=== PATIENT | male | born 1960 | race Caucasian/White ===

== ENCOUNTER 2016-10-23 09:55 | Inpatient (IN) | payer OTHER ==
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
[2016-10-23 10:19] VITALS: BMI 26.6
[2016-10-23 10:39] LABS: BASOPHIL 0.4 % (0-2.0); EOSINOPHIL 1.3 % (0-4.5); MCH 33.6 pg (25.7-33.7); MCHC 34.4 g/dl (32.0-35.9); MEAN CELL VOLUME 97.7 fl (80-96); MEAN PLT VOLUME 10.9 fl (7.5-11.1); NEUTROPHILS 79.8 % (42.8-82.8); PLATELET COUNT 40 K/MM3 (134-434); RDW 18.4 % (11.9-15.9); WHITE BLOOD COUNT 7.3 K/mm3 (4.0-10.0)
[2016-10-23 10:42] LABS: URINE APPEARANCE SLCLOUDY; URINE BILIRUBIN NEGATIVE (NEGATIVE); URINE COLOR YELLOW; URINE GLUCOSE (UA) NEGATIVE (NEGATIVE); URINE KETONE NEGATIVE (NEGATIVE); URINE NITRITE NEGATIVE (NEGATIVE); URINE UROBILINOGEN NEGATIVE E.U./dl (0.2-1.0)
[2016-10-23 10:56] LABS: ACTIVATED PTT 23.7 SECONDS (26.9-34.4)
[2016-10-23 11:02] LABS: URINE BLOOD 3+ (NEGATIVE); URINE LEUK ESTERASE 3+ (NEGATIVE); URINE PROTEIN 1+ (NEGATIVE)
[2016-10-23 11:09] LABS: ALBUMIN 2.8 g/dl (3.4-5.0); CALCIUM 8.4 mg/dL (8.5-10.1); CREATININE 1.7 mg/dL (0.7-1.3); TROPONIN I 0.07 ng/ml (0.00-0.05)
[2016-10-23 11:11] LABS: BILIRUBIN,TOTAL 2.4 mg/dL (0.2-1.0); TOT PROT 9.1 g/dl (6.4-8.2)
[2016-10-23 11:19] LABS: URINE RBC 3 /hpf (0-3); URINE WBC 57 /hpf (3-5); YEAST FEW
[2016-10-23 11:57] LABS: PROTHROMBIN TIME (PATIENT) > 320.00 SEC (9.98-11.88)
[2016-10-23 11:58] LABS: INR > 15.00 (0.82-1.09)
[2016-10-23] MEDS ORDERED: LACTULOSE 20 GM/30 ML UDC (FOR RECTAL USE ONLY) PR ONE ×2 (13:10→15:46)
[2016-10-23] MEDS ORDERED: VANCOMYCIN 1,000 MG in DEXTROSE 5%-WATER - 250 ML IVPB ONE (13:53)
[2016-10-23] MEDS ORDERED: PIPERACILLIN/TAZOB 3.375 GM/50 ML PRE-DOCKED IV ONE (13:53)
[2016-10-23] MEDS ORDERED: SODIUM CHLORIDE 1,000 ML IV STA (14:48)
[2016-10-23] MEDS ORDERED: VANCOMYCIN 1 GRAM (PRE-DOCKED) 250 ML IVPB ONE (15:57)
[2016-10-23] MEDS ORDERED: PIPERACILLIN/TAZOB 3.375 GM 50 ML IVPB ONE ×2 (15:57→18:57)
[2016-10-23] MEDS ORDERED: ALBUTEROL SO4 2.5/IPRATROPIUM 0.5 INH SOL 3 ML VIAL.NEB. NEB PRN (16:03)
--- NOTE | 2016-10-23 16:34 | EKG ---
Test Reason : Blood Pressure : / mmHG Vent. Rate : 060 BPM Atrial Rate : 064 BPM P-R Int : 000 ms QRS Dur : 184 ms QT Int : 562 ms P-R-T Axes : 000 -53 124 degrees QTc Int : 562 ms AV SEQUENTIAL OR DUAL CHAMBER ELECTRONIC PACEMAKER Confirmed by MD JUDY, REID ([id number]) on 10/23/2016 4:33:56 PM Referred By: Overread By: REID KIM MD
--- NOTE | 2016-10-23 16:59 | PN ---
Progress Note (short form) - Note Progress Note: ID consult dictated imp/reccd 56 year old man with hep c cirrhosis found at home with decreased mental status brought in for possible cva head ct negative ammonia elevated pyuria noted right pleural effusion noted (chronic) given vanco/zosyn after cultures- asked to evaluate he awakens to name but is unable to participate in conversation NAD just got rectal lactulose no fevers suggest continue zosyn, f/u cultures
[2016-10-23] MEDS ORDERED: PANTOPRAZOLE SODIUM 100 ML IVPB ONE (17:43)
[2016-10-23] MEDS ORDERED: FUROSEMIDE 40 MG TABLET (FP) ONE (17:43)
--- NOTE | 2016-10-23 18:00 | CONS ---
DATE OF CONSULTATION: DATE OF DICTATION: 10/23/2016 INFECTIOUS DISEASE CONSULTATION HISTORY OF PRESENT ILLNESS: This is a 56-year-old man with a history of hepatitis C on methadone, history of lymphoma. He has permanent pacemaker and a chronic right pleural effusion, presents to the emergency room with decreased mental status. He was found by his home health aid sitting on the couch and was responsive to verbal stimuli, but there was a concern he had a stroke. They thought he had right sided weakness. He was brought to the ER. He had his glucose checked, which was normal. He had recently been seen on the in the emergency room following a fall. In the ER, he was found to have an elevated ammonia level, pyuria, and a Rebolledo was placed, and a chronic right pleural effusion. He was given vancomycin and Zosyn. I am asked to see him for further recommendations. He had a head CT as well in the emergency room that was negative for any acute intracranial process. He is currently awake. He just received some rectal lactulose. He knows his name, but he is not able to participate in the conversation. He is in no acute distress. PAST MEDICAL HISTORY: Notable for history of anemia, lymphoma. He has had an SC and has a permanent pacemaker. He has a history of diabetes, lower GI bleed. He has had hypertension, liver cirrhosis, hepatitis C, anxiety, former substance use. He is on methadone. He has had [address] He has a permanent pacemaker. He has had GI polyps removed, and he has had a fracture of his hip in the past which has been pinned, which is his left hip, after a fall. He has had recurrent pleural effusions in his right lung. FAMILY HISTORY: Diabetes and heart disease. SOCIAL HISTORY: Is not obtainable at this time. REVIEW OF SYSTEMS: Not obtainable, but he looks quite comfortable. MEDICATION: His medication list was not obtainable in the ER. PHYSICAL EXAMINATION: General: He is resting comfortably, is in no acute distress. He is afebrile. Vital signs: Temperature 98.3 pulse 61, blood pressure 138/62, respiratory rate 18, saturating 98% on room air. HEENT: He is mildly icteric. He opens his eyes. He is normocephalic. Neck: Supple. He has no meningeal signs. He has no thrush. Lungs: Diminished breath sounds at the right base. Heart: Regular rate and rhythm. Abdomen: Soft, nontender. He has no fluid wave. Extremities: Venous stasis changes bilaterally and petechiae below his ankles, which appear chronic. He has no open skin wounds. LABORATORY: His white count is 7.3, hemoglobin 12.3, platelets of 40,000. BUN and creatinine are 57 and 1.7 with a glucose of 304. A total bilirubin of 2.4. AST is 54, alkaline phosphatase of 281. Ammonia is 118. Urinalysis is 3+ leukocyte esterase with 57 white cells. Chest x-ray reveals a chronic right pleural effusion. MEDICATION: His medications at the time of his last discharge in August include nebulizer, furosemide, lactulose, methadone, Protonix, insulin. IMPRESSION: In summary, this is a 56-year-old man brought in with confusion. He has decreased mental status. He has a hepatic encephalopathy with elevated ammonia level, evidence of a urinary tract infection. No evidence of spontaneous bacterial peritonitis and a chronic right pleural effusion without any respiratory symptoms. He was given vancomycin and Zosyn after cultures. I would suggest we continue his Zosyn and follow up his cultures in the morning. ROSITA MERCHANT M.D. [id number]
[2016-10-23] MEDS: FUROSEMIDE 40 MG TABLET (FP) PO SCH (18:02)
[2016-10-23] MEDS: PANTOPRAZOLE SODIUM 100 ML IVPB SCH (18:18)
[2016-10-23] MEDS ORDERED: INSULIN (NOVOLOG) ASPART 100 UNITS/ML 10ML VIAL ONE (18:56)
[2016-10-23] MEDS: INSULIN SLIDING SCALE (NOVOLOG) 1 VIAL SQ SCH ×2 (18:59→22:30)
[2016-10-23 19:00] LABS: INR 1.53 (0.82-1.09)
[2016-10-23] MEDS: PIPERACILLIN/TAZOB 3.375 GM/50 ML PRE-DOCKED IVPB SCH (19:00)
[2016-10-23] MEDS: RIFAXIMIN 550 MG TABLET (UD) PO SCH (22:28)
[2016-10-23] MEDS: LACTULOSE 20 GM/30 ML UDC (FOR ORAL USE ONLY) PO PRN (22:28)
[2016-10-23] MEDS: INSULIN DETEMIR 100 UNITS/ML MDV SQ SCH (22:33)
[2016-10-24] MEDS: PIPERACILLIN/TAZOB 3.375 GM/50 ML PRE-DOCKED IVPB SCH ×2 (03:36→11:16)
[2016-10-24] MEDS ORDERED: METHADONE HCL 10 MG TABLET PO SCH (06:00)
[2016-10-24] MEDS: INSULIN SLIDING SCALE (NOVOLOG) 1 VIAL SQ SCH ×4 (06:45→21:47)
[2016-10-24 08:03] LABS: MCHC 34.2 g/dl (32.0-35.9); MEAN CELL VOLUME 99.4 fl (80-96); MEAN PLT VOLUME 10.9 fl (7.5-11.1); RDW 17.9 % (11.9-15.9); WHITE BLOOD COUNT 5.8 K/mm3 (4.0-10.0)
[2016-10-24 08:25] LABS: ALBUMIN 2.4 g/dl (3.4-5.0); CALCIUM 8.6 mg/dL (8.5-10.1); CREATININE 1.6 mg/dL (0.7-1.3)
[2016-10-24 08:27] LABS: BILIRUBIN,TOTAL 2.5 mg/dL (0.2-1.0); TOT PROT 8.1 g/dl (6.4-8.2)
[2016-10-24 08:57] LABS: PLATELET COUNT 36 K/MM3 (134-434)
--- NOTE | 2016-10-24 10:29 | HP ---
Admitting History and Physical - Admission History of Present Illness: 56-year-old male with history of hepatitis C, diabetes, IVDA on methadone, pacemaker, lymphoma who presents to the emergency department by EMS with altered mental status. Per EMS, the home health aide found the patient sitting on the couch not moving his right side and responsive only to verbal stimuli. Fingerstick in the field was normal. The history is limited secondary to the clinical presentation of the patient. Of note, the patient was seen on September 28 in the emergency department at [facility] following a fall. 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 No: Alzheimer's , Dementia Cardiovascular: Yes: CAD (reported prior MIs -> stents x4 at [facility] in 1998), HTN, Other (PPM palcement at time of SC in 1998, abnl EKG witth old inferior SC). No : AFIB Pulmonary: Yes: COPD, Other (PLEURAL EFFUSION WITH PREVIOUS TAPS). No: O2 Dependent Gastrointestinal: Yes: Ascites, Diverticulitis, Esophageal Varices (This patient does NOT have varices), GI Bleed (s/p multiple blood transfusions), Other (gastri varices / ) Hepatobiliary: Yes: Cirrhosis (ESLD), Hepatitis C, Other (PORTAL HYPERTENSION) Renal/: Yes: Renal Inusuff (CKD (baseline 0.9-1.1)) Heme/Onc: Yes: Anemia, Thrombocytopenia Psych: Yes: Addictions (hx of polysubstance abuse & IVDA on maintenance Methadone), Anxiety Endocrine: Yes: Diabetes Mellitus (insulin-dependent) - Past Surgical History Past Surgical History: Yes: Permanent Pacemaker, Stent (x4), Upper Endoscopy ( with gastric varices/sclerotherapy) - Smoking History Smoking history: Former smoker Have you smoked in the past 12 months: No Aproximately how many cigarettes per day: 5 - Alcohol/Substance Use Hx Alcohol Use: Yes History of Substance Use: reports: Heroin (on methadone) - Social History ADL: Independent Occupation: not employed History of Recent Travel: No Home Medications - Allergies Allergies/Adverse Reactions: Allergies Allergy/AdvReac Type Severity Reaction Status Date / Time nalbuphine HCl [From Nubain] Allergy Verified 10/23/16 10:12 octreotide AdvReac Verified 10/23/16 10:12 - Home Medications Home Medications: Ambulatory Orders Unobtainable [Unobtainable] 09/28/16 Family Disease History - Family Disease History Family Disease History: Heart Disease: Father (OPEN HEART SX,), CA: Mother (BREAST CANCER,) Review of Systems - Review of Systems Cardiovascular: denies: Chest Pain Respiratory: denies: SOB, SOB on Exertion Gastrointestinal: denies: Abdominal Pain Genitourinary: reports: No Symptoms Neurological: reports: Incoordination, Unsteady Gait, Weakness Physical Examination Vital Signs: Vital Signs Temperature 97.8 F 10/24/16 06:18 Pulse Rate 67 10/24/16 06:18 Respiratory Rate 20 10/24/16 06:18 Blood Pressure 100/55 10/24/16 06:18 O2 Sat by Pulse Oximetry (%) 96 10/23/16 20:00 Neck: Yes: Supple Cardiovascular: Yes: Regular Rate and Rhythm Respiratory: Yes: Regular, CTA Bilaterally, Diminished (rt) Gastrointestinal: Yes: Normal Bowel Sounds, Soft, Distention. No: Tenderness Musculoskeletal: Yes: Muscle Weakness Edema: No Wound/Incision: Yes: Other (bruising large area LUE) Neurological: Yes: Alert, Oriented, Unsteady Gait, Weakness Labs: CBC, BMP 10/24/16 06:00 10/24/16 06:00 Imaging - Results Chest X-ray: Report Reviewed X-ray: Report Reviewed Cat Scan: Report Reviewed Problem List - Problems (1) Cirrhosis of liver Assessment/Plan: GI ON CASE CONTINUE WITH Orders 10/23/16 13:10 Lactulose (Rectal Use) [Cephulac (Rectal Use)] 200 gm RI ONCE ONE 10/23/16 16:35 Lactulose (Oral Use) [Cephulac (Oral Use)] 20 gm PO QID PRN 10/23/16 22:00 Rifaximin [Xifaxan -] 550 mg PO BID 10/24/16 10:00 Spironolactone [Aldactone -] 100 mg PO DAILY Code(s): K74.60 - UNSPECIFIED CIRRHOSIS OF LIVER Qualifiers: (2) Hepatic encephalopathy Assessment/Plan: ABOVE Code(s): K72.90 - HEPATIC FAILURE, UNSPECIFIED WITHOUT COMA (3) Hydrothorax Assessment/Plan: NO CHANGE FROM PREVIOUS Code(s): J94.8 - OTHER SPECIFIED PLEURAL CONDITIONS (4) Diabetes mellitus, insulin dependent (IDDM), uncontrolled Assessment/Plan: BG WITH COVERAGE Code(s): E10.65 - TYPE 1 DIABETES MELLITUS WITH HYPERGLYCEMIA Qualifiers: Chronic kidney disease stage: stage 3 (moderate) (5) Lymphoma Code(s): C85.90 - NON-HODGKIN LYMPHOMA, UNSPECIFIED, UNSPECIFIED SITE (7) Thrombocytopenia Code(s): D69.6 - THROMBOCYTOPENIA, UNSPECIFIED
--- NOTE | 2016-10-24 10:38 | CONSULT ---
Consult Consult Specialty:: Nephrology Reason for Consultation:: tsarr - History of Present Illness Chief Complaint: confusion History of Present Illness: This is a 56 year old man with a history of cirrhosis of liver, htn, diabetes who presented with altered mental status. He was found to have hepatic encephalopathy presumably from an infection. He states "my liver gave out". His main complaint now is that he has a sandra and he wants it removed. Has no other complaints. Had a normal CT of head. 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 No: Alzheimer's , Dementia Cardio/Vascular: Yes: CAD (reported prior MIs -> stents x4 at [facility] in 1998), HTN , NV, Other (PPM palcement at time of NV in 1998, abnl EKG witth old inferior NV ). No: AFIB Pulmonary: Yes: COPD, Other (PLEURAL EFFUSION WITH PREVIOUS TAPS). No: O2 Dependent Gastrointestinal: Yes: Ascites, Diverticulitis, Esophageal Varices (This patient does NOT have varices), GI Bleed (s/p multiple blood transfusions), Other (gastri varices / ) Hepatobiliary: Yes: Cirrhosis (ESLD), Hepatitis C, Other (PORTAL HYPERTENSION) Renal/: Yes: Renal Inusuff (CKD (baseline 0.9-1.1)) Psych: Yes: Addictions (hx of polysubstance abuse & IVDA on maintenance Methadone), Anxiety Endocrine: Yes: Diabetes Mellitus (insulin-dependent) - Past Surgical History Past Surgical History: Yes: Permanent Pacemaker, Stent (x4), Upper Endoscopy ( with gastric varices/sclerotherapy) - Alcohol/Substance Use Hx Alcohol Use: Yes History of Substance Use: reports: Heroin (on methadone) - Smoking History Smoking history: Former smoker Have you smoked in the past 12 months: No Aproximately how many cigarettes per day: 5 - Social History Usual Living Arrangement: Other ( from . The youngest of his 3 children lives with him) ADL: Independent Occupation: not employed History of Recent Travel: No Home Medications - Allergies Allergies/Adverse Reactions: Allergies Allergy/AdvReac Type Severity Reaction Status Date / Time nalbuphine HCl [From Nubain] Allergy Verified 10/23/16 10:12 octreotide AdvReac Verified 10/23/16 10:12 - Home Medications Home Medications: Ambulatory Orders Unobtainable [Unobtainable] 09/28/16 Family Disease History - Family Disease History Family Disease History: Heart Disease: Father (OPEN HEART SX,), CA: Mother (BREAST CANCER,) Review of Systems - Review of Systems Constitutional: reports: Weakness Eyes: reports: No Symptoms HENT: reports: No Symptoms Neck: reports: No Symptoms Cardiovascular: reports: No Symptoms Respiratory: reports: No Symptoms Gastrointestinal: reports: No Symptoms Genitourinary: reports: Burning Breasts: reports: No Symptoms Reported Musculoskeletal: reports: No Symptoms Integumentary: reports: No Symptoms Neurological: reports: Change in LOC Endocrine: reports: No Symptoms Hematology/Lymphatic: reports: No Symptoms Nephrology Consult - Height Height: 5 ft 9 in - Weight Weight: 180 lb - BMI Body Mass Index (BMI): 26.6 - Lab Results CBC,BMP: CBC, BMP 10/24/16 06:00 10/24/16 06:00 Anion Gap: Anion Gap Anion Gap 9 (8-16) 10/24/16 06:00 - Imaging Chest X-ray: Report Reviewed (ppm, mod pleural eff on R) - Physical Examination Vital Signs: Vital Signs Temperature 97.8 F 10/24/16 06:18 Pulse Rate 67 10/24/16 06:18 Respiratory Rate 20 10/24/16 06:18 Blood Pressure 100/55 10/24/16 06:18 O2 Sat by Pulse Oximetry (%) 96 10/23/16 20:00 Constitutional: Yes: Calm, Thin Eyes: Yes: WNL HENT: Yes: WNL Neck: Yes: WNL Cardiovascular: Yes: Regular Rate and Rhythm, Other (palpable pacemaker) Respiratory: Yes: Regular, Diminished Gastrointestinal: Yes: Normal Bowel Sounds, Hernia (demetrius umbilical) Renal/: Yes: Sandra Present Musculoskeletal: Yes: WNL Extremities: Yes: WNL Edema: No Integumentary: Yes: Petechiae, Venous Stasis Changes Wound/Incision: Yes: Clean/Dry Neurological: Yes: Alert, Oriented Psychiatric: Yes: Alert, Oriented Assessment/Plan IMPRESSION Pt has chronic kidney disease and may have had mild starr- he is well has thrombocytopenia likely from liver disease hepatic encephalopathy worsened by uti acute uti PLAN can dc sandra and observe response avoid nephrotoxins would monitor ammonia though it may not directly reflect degree of encephalopathy lactulose and rifaximin will order renal sono will follow, thank you MV
[2016-10-24] MEDS: PANTOPRAZOLE SODIUM 100 ML IVPB SCH (11:16)
[2016-10-24] MEDS: LACTULOSE 20 GM/30 ML UDC (FOR ORAL USE ONLY) PO PRN ×3 (11:17→21:49)
[2016-10-24] MEDS: ACETAMINOPHEN 325 MG TABLET (FP) PO PRN ×2 (11:24→21:48)
[2016-10-24] MEDS: SPIRONOLACTONE 25 MG TABLET (FP) PO SCH (11:25)
[2016-10-24] MEDS: RIFAXIMIN 550 MG TABLET (UD) PO SCH ×2 (11:25→21:48)
[2016-10-24] MEDS: FUROSEMIDE 40 MG TABLET (FP) PO SCH (11:25)
--- NOTE | 2016-10-24 12:23 | CONSULT ---
Consult Consult Specialty:: GI Referred by:: Dr Thompson Reason for Consultation:: hepatic encephalopathy - History of Present Illness Chief Complaint: AMS History of Present Illness: 56 M well-known to our service with h/o ESLD and low-grade B-cell lymphoma, again admitted for encephalopathy. NH4 on admission 119 now 94, with concomitant improvement. Currently awake and just finished a large lunch. Started on po lactulose and rifaximin yesterday with good response. 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 No: Alzheimer's , Dementia Cardio/Vascular: Yes: CAD (reported prior MIs -> stents x4 at [facility] in 1998), HTN , MD, Other (PPM palcement at time of MD in 1998, abnl EKG witth old inferior MD ). No: AFIB Pulmonary: Yes: COPD, Other (PLEURAL EFFUSION WITH PREVIOUS TAPS). No: O2 Dependent Gastrointestinal: Yes: Ascites, Diverticulitis, Esophageal Varices (This patient does NOT have varices), GI Bleed (s/p multiple blood transfusions), Other (gastri varices / ) Hepatobiliary: Yes: Cirrhosis (ESLD), Hepatitis C, Other (PORTAL HYPERTENSION) Renal/: Yes: Renal Inusuff (CKD (baseline 0.9-1.1)) Heme/Onc: Yes: Cancer (low-grade B-cell lymphoma) Psych: Yes: Addictions (hx of polysubstance abuse & IVDA on maintenance Methadone), Anxiety Endocrine: Yes: Diabetes Mellitus (insulin-dependent) - Past Surgical History Past Surgical History: Yes: Permanent Pacemaker, Stent (x4), Upper Endoscopy ( with gastric varices/sclerotherapy) - Alcohol/Substance Use Hx Alcohol Use: Yes History of Substance Use: reports: Heroin (on methadone) - Smoking History Smoking history: Former smoker Have you smoked in the past 12 months: No Aproximately how many cigarettes per day: 5 - Social History Usual Living Arrangement: Other ( from . The youngest of his 3 children lives with him) ADL: Independent Occupation: not employed History of Recent Travel: No Home Medications - Allergies Allergies/Adverse Reactions: Allergies Allergy/AdvReac Type Severity Reaction Status Date / Time nalbuphine HCl [From Nubain] Allergy Verified 10/23/16 10:12 octreotide AdvReac Verified 10/23/16 10:12 - Home Medications Home Medications: Ambulatory Orders Unobtainable [Unobtainable] 09/28/16 Family Disease History - Family Disease History Family Disease History: Heart Disease: Father (OPEN HEART SX,), CA: Mother (BREAST CANCER,) Physical Exam-GI Vital Signs: Vital Signs Temperature 98.2 F 10/24/16 09:00 Pulse Rate 64 10/24/16 09:00 Respiratory Rate 14 10/24/16 09:00 Blood Pressure 118/70 10/24/16 09:00 O2 Sat by Pulse Oximetry (%) 96 10/23/16 20:00 Constitutional: Yes: Well Nourished HENT: Yes: Normocephalic Neck: Yes: Supple Cardiovascular: Yes: Regular Rate and Rhythm Respiratory: Yes: CTA Bilaterally Gastrointestinal Inspection: Yes: Ascites ...Auscultate: Yes: Normoactive Bowel Sounds ...Palpate: Yes: Soft. No: Tenderness Neurological: Yes: Confusion (but knows where he is and who I am) Labs: CBC, BMP 10/24/16 06:00 10/24/16 06:00 INR, PTT INR 1.53 (0.82-1.09) H D 10/23/16 18:36 Abnormal Lab Results 10/23/16 10/24/16 10/24/16 18:36 06:00 06:00 RBC 3.49 L Hct 34.7 L MCV 99.4 H RDW 17.9 H Plt Count 36 L* INR 1.53 H D Chloride 112 H BUN 50 H Creatinine 1.6 H Random Glucose 201 H D Total Bilirubin 2.5 H AST 42 H D Alkaline Phosphatase 240 H Ammonia Albumin 2.4 L 10/24/16 06:00 RBC Hct MCV RDW Plt Count INR Chloride BUN Creatinine Random Glucose Total Bilirubin AST Alkaline Phosphatase Ammonia 94.69 H Albumin Hepatic Panel Total Bilirubin 2.5 mg/dL (0.2-1.0) H 10/24/16 06:00 AST 42 U/L (15-37) H D 10/24/16 06:00 ALT 31 U/L (12-78) 10/24/16 06:00 Alkaline Phosphatase 240 U/L (45-117) H 10/24/16 06:00 Albumin 2.4 g/dl (3.4-5.0) L 10/24/16 06:00 Imaging - Results Cat Scan: Report Reviewed ((brain)-no acute problem) Assessment/Plan Patient with ESLD, frequently admitted with HE likely due to non-compliance with meds. Recommend improved home care services. Continue present regimen for now. Check AFP. Follow NH4 levels. Thrombocytopenia unchanged, secondary to hypersplenism. To follow-up at [facility] after discharge
--- NOTE | 2016-10-24 13:09 | CONSULT ---
Consult Consult Specialty:: PULMONARY Referred by:: AMARJIT Reason for Consultation:: RIGHT PLEURAL EFFUSION - History of Present Illness Chief Complaint: R PL EFFUSION History of Present Illness: 56-year-old male with history of hepatitis C, diabetes, IVDA on methadone, pacemaker, lymphoma who presents to the emergency department by EMS with altered mental status. Per EMS, the home health aide found the patient sitting on the couch not moving his right side and responsive only to verbal stimuli. Fingerstick in the field was normal. The history is limited secondary to the clinical presentation of the patient. Of note, the patient was seen on September 28 in the emergency department at [facility] following a fall. Had a right vat in past for chronic right hepatic hydrothorax. 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 No: Alzheimer's , Dementia Cardio/Vascular: Yes: CAD (reported prior MIs -> stents x4 at [facility] in 1998), HTN , ND, Other (PPM palcement at time of [place] in 1998, abnl EKG witth old inferior ND ). No: AFIB Pulmonary: Yes: COPD, Other (PLEURAL EFFUSION WITH PREVIOUS TAPS). No: O2 Dependent Gastrointestinal: Yes: Ascites, Diverticulitis, Esophageal Varices (This patient does NOT have varices), GI Bleed (s/p multiple blood transfusions), Other (gastri varices / ) Hepatobiliary: Yes: Cirrhosis (ESLD), Hepatitis C, Other (PORTAL HYPERTENSION) Renal/: Yes: Renal Inusuff (CKD (baseline 0.9-1.1)) Psych: Yes: Addictions (hx of polysubstance abuse & IVDA on maintenance Methadone), Anxiety Endocrine: Yes: Diabetes Mellitus (insulin-dependent) - Past Surgical History Past Surgical History: Yes: Permanent Pacemaker, Stent (x4), Upper Endoscopy ( with gastric varices/sclerotherapy) - Alcohol/Substance Use Hx Alcohol Use: Yes History of Substance Use: reports: Heroin (on methadone) - Smoking History Smoking history: Former smoker Have you smoked in the past 12 months: No Aproximately how many cigarettes per day: 5 - Social History Usual Living Arrangement: Other ( from . The youngest of his 3 children lives with him) ADL: Independent Occupation: not employed History of Recent Travel: No Home Medications - Allergies Allergies/Adverse Reactions: Allergies Allergy/AdvReac Type Severity Reaction Status Date / Time nalbuphine HCl [From Nubain] Allergy Verified 10/23/16 10:12 octreotide AdvReac Verified 10/23/16 10:12 - Home Medications Home Medications: Ambulatory Orders Unobtainable [Unobtainable] 09/28/16 Family Disease History - Family Disease History Family Disease History: Heart Disease: Father (OPEN HEART SX,), CA: Mother (BREAST CANCER,) Review of Systems - Review of Systems Respiratory: denies: Cough, Hemoptysis, SOB, SOB on Exertion, Wheezing Physical Exam Vital Sings: Vital Signs Temperature 98.2 F 10/24/16 09:00 Pulse Rate 64 10/24/16 09:00 Respiratory Rate 14 10/24/16 09:00 Blood Pressure 118/70 10/24/16 09:00 O2 Sat by Pulse Oximetry (%) 96 10/23/16 20:00 Constitutional: Yes: Calm Eyes: Yes: EOM Intact HENT: Yes: Normocephalic Neck: Yes: Trachea Midline Cardiovascular: Yes: S1, S2 Respiratory: Yes: Diminished (right base) Gastrointestinal: Yes: Soft, Ascites, Hernia. No: Tenderness Edema: LLE: Trace, RLE: Trace Neurological: Yes: Alert Labs: CBC, BMP 10/24/16 06:00 10/24/16 06:00 rest reviewed Imaging - Results Chest X-ray: Image Reviewed EKG: Report Reviewed Problem List - Problems (1) Cirrhosis of liver Code(s): K74.60 - UNSPECIFIED CIRRHOSIS OF LIVER Qualifiers: (2) Hepatitis C virus infection Code(s): B19.20 - UNSPECIFIED VIRAL HEPATITIS C WITHOUT HEPATIC COMA (3) Hydrothorax Code(s): J94.8 - OTHER SPECIFIED PLEURAL CONDITIONS Assessment/Plan patient has chronic changes to right pleural region due to previous right vats etiology of pleural fluid on basis of cirrhosis:hepatic hydrothorax comparing present to previous radiographs there has not been any change no objection from a pulmonary standpoint to discharge Minh GARZA MD
--- NOTE | 2016-10-24 14:13 | CONSULT ---
Consult Consult Specialty:: Cardiology Referred by:: Dr Thompson Reason for Consultation:: Effusion - History of Present Illness Chief Complaint: as above History of Present Illness: 55 yo male smoker, COPD, HTN, DM (insulin dependent), CAD with multiple reported MIs, reported stents x4 at [facility] (no details available), pacemaker, Hep C cirrhosis/ESLD w/ portal HTN/esophageal varices/ascites, low-grade B-cell lymphoma, hydrothorax with prior thoracentesis and chest tube, h/o severe GI bleed due to gastric varices, recent admission in 09/09 with dyspnea, abdominal distension due to ascites, and large R pleural effusion -. all felt to be from cirrhosis, nl EF then, now present with change in mental status -. 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 No: Alzheimer's , Dementia Cardio/Vascular: Yes: CAD (reported prior MIs -> stents x4 at [facility] in 1998), HTN , Other (PPM palcement at time of [place] in 1998, abnl EKG witth old inferior [place]). No: AFIB Pulmonary: Yes: COPD, Other (PLEURAL EFFUSION WITH PREVIOUS TAPS). No: O2 Dependent Gastrointestinal: Yes: Ascites, Diverticulitis, Esophageal Varices (This patient does NOT have varices), GI Bleed (s/p multiple blood transfusions), Other (gastri varices / ) Hepatobiliary: Yes: Cirrhosis (ESLD), Hepatitis C, Other (PORTAL HYPERTENSION) Renal/: Yes: Renal Inusuff (CKD (baseline 0.9-1.1)) Psych: Yes: Addictions (hx of polysubstance abuse & IVDA on maintenance Methadone), Anxiety Endocrine: Yes: Diabetes Mellitus (insulin-dependent) - Past Surgical History Past Surgical History: Yes: Permanent Pacemaker, Stent (x4), Upper Endoscopy ( with gastric varices/sclerotherapy) - Alcohol/Substance Use Hx Alcohol Use: Yes History of Substance Use: reports: Heroin (on methadone) - Smoking History Smoking history: Former smoker Have you smoked in the past 12 months: No Aproximately how many cigarettes per day: 5 - Social History Usual Living Arrangement: Other ( from . The youngest of his 3 children lives with him) ADL: Independent Occupation: not employed History of Recent Travel: No Home Medications - Allergies Allergies/Adverse Reactions: Allergies Allergy/AdvReac Type Severity Reaction Status Date / Time nalbuphine HCl [From Nubain] Allergy Verified 10/23/16 10:12 octreotide AdvReac Verified 10/23/16 10:12 - Home Medications Home Medications: Ambulatory Orders Unobtainable [Unobtainable] 09/28/16 Family Disease History - Family Disease History Family Disease History: Heart Disease: Father (OPEN HEART SX,), CA: Mother (BREAST CANCER,) Review of Systems - Review of Systems Constitutional: reports: No Symptoms Eyes: reports: No Symptoms HENT: reports: No Symptoms Respiratory: reports: SOB on Exertion Gastrointestinal: reports: No Symptoms Genitourinary: reports: No Symptoms Musculoskeletal: reports: Muscle Weakness Neurological: reports: Confusion Physical Exam Vital Signs: Vital Signs Temperature 98.2 F 10/24/16 09:00 Pulse Rate 64 10/24/16 09:00 Respiratory Rate 14 10/24/16 09:00 Blood Pressure 118/70 10/24/16 09:00 O2 Sat by Pulse Oximetry (%) 96 10/23/16 20:00 Constitutional: Yes: Thin Eyes: Yes: Conjunctiva Clear HENT: Yes: Atraumatic Neck: Yes: Supple Cardiovascular: Yes: Regular Rate and Rhythm, Murmur Respiratory: Yes: Other (decr at right base). No: Rales, Rhonchi, Wheezes Gastrointestinal: Yes: Soft, Distention Extremities: Yes: Other (warm) Edema: No Peripheral Pulses WNL: Yes Neurological: Yes: Alert, Oriented Labs: CBC, BMP 10/24/16 06:00 10/24/16 06:00 Imaging - Results Chest X-ray: Report Reviewed, Image Reviewed EKG: Report Reviewed, Image Reviewed (paced) Assessment/Plan 56 yo male with the above history, here with change in mental status in setting of elevated ammonia (pt admits to having missed a few lactulose doses) -. better with lactulose. Pt with indeterminate trop I -> in setting of renal dysfunction, not significant for ACS No CHF. Right pleural effusion is chronic and likely from cirrhosis (had prior CT for hydrothorax) -. no sign change from prior Pt had echo in 09/09 -. nl EF, mod-sev MR Rec: No cardiac studies warranted Cont current meds Per Gi/IM Thanks! We'll see prn!
--- NOTE | 2016-10-24 14:54 | CONSULT ---
Consult Consult Specialty:: Neurology Reason for Consultation:: altered mental status - History of Present Illness History of Present Illness: 56-year-old male with history of hepatitis C, diabetes, IVDA on methadone, pacemaker, lymphoma was admitted altered mental status. Per EMS, the home health aide found the patient sitting on the couch not moving his right side and responsive only to verbal stimuli. Of note, the patient was seen on September 28 in the emergency department at [facility] following a fall. This am pt awake but not of events that brought him in.In the hospital he was found to have liver failure. 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 No: Alzheimer's , Dementia Cardio/Vascular: Yes: CAD (reported prior MIs -> stents x4 at [facility] in 1998), HTN , Other (PPM palcement at time of [place] in 1998, abnl EKG witth old inferior [place]). No: AFIB Pulmonary: Yes: COPD, Other (PLEURAL EFFUSION WITH PREVIOUS TAPS). No: O2 Dependent Gastrointestinal: Yes: Ascites, Diverticulitis, Esophageal Varices (This patient does NOT have varices), GI Bleed (s/p multiple blood transfusions), Other (gastri varices / ) Hepatobiliary: Yes: Cirrhosis (ESLD), Hepatitis C, Other (PORTAL HYPERTENSION) Renal/: Yes: Renal Inusuff (CKD (baseline 0.9-1.1)) Psych: Yes: Addictions (hx of polysubstance abuse & IVDA on maintenance Methadone), Anxiety Endocrine: Yes: Diabetes Mellitus (insulin-dependent) - Past Surgical History Past Surgical History: Yes: Permanent Pacemaker, Stent (x4), Upper Endoscopy ( with gastric varices/sclerotherapy) - Alcohol/Substance Use Hx Alcohol Use: Yes History of Substance Use: reports: Heroin (on methadone) - Smoking History Smoking history: Former smoker Have you smoked in the past 12 months: No Aproximately how many cigarettes per day: 5 - Social History Usual Living Arrangement: Other ( from . The youngest of his 3 children lives with him) ADL: Independent Occupation: not employed History of Recent Travel: No Home Medications - Allergies Allergies/Adverse Reactions: Allergies Allergy/AdvReac Type Severity Reaction Status Date / Time nalbuphine HCl [From Nubain] Allergy Verified 10/23/16 10:12 octreotide AdvReac Verified 10/23/16 10:12 - Home Medications Home Medications: Ambulatory Orders Unobtainable [Unobtainable] 09/28/16 Family Disease History - Family Disease History Family Disease History: Heart Disease: Father (OPEN HEART SX,), CA: Mother (BREAST CANCER,) Review of Systems - Review of Systems Constitutional: reports: Lethargy, Loss of Appetite, Weakness Eyes: reports: No Symptoms HENT: reports: No Symptoms Neck: reports: No Symptoms Cardiovascular: reports: No Symptoms Respiratory: reports: No Symptoms Gastrointestinal: reports: Abdominal Pain, Bloating, Dysphagia, Nausea Genitourinary: reports: No Symptoms, Burning Breasts: reports: No Symptoms Reported Musculoskeletal: reports: No Symptoms Neurological: reports: Change in LOC, Confusion, Pre-Existing Deficit, Unsteady Gait Hematology/Lymphatic: reports: No Symptoms Psychiatric: reports: Anxiety, Depression Physical Exam-Neuro Vital Signs: Vital Signs Temperature 98.3 F 10/24/16 14:00 Pulse Rate 64 10/24/16 14:00 Respiratory Rate 18 10/24/16 14:00 Blood Pressure 110/67 10/24/16 14:00 O2 Sat by Pulse Oximetry (%) 96 10/23/16 20:00 Constitutional: Yes: No Distress, Pallor Neck: Yes: Supple, Trachea Midline Cardiovascular: Yes: Regular Rate and Rhythm, S1, S2 Respiratory: Yes: Regular, CTA Bilaterally Gastrointestinal: Yes: Normal Bowel Sounds, Soft, Distention Renal/: Yes: WNL Musculoskeletal: Yes: WNL Edema: Yes Edema: LLE: 1+, RLE: 1+ Psychiatric: Yes: Alert, Oriented Labs: CBC, BMP 10/24/16 06:00 10/24/16 06:00 INR, PTT INR 1.53 (0.82-1.09) H D 10/23/16 18:36 - Neuro Exam Level Of Consciousness: Yes: Oriented to Person, Oriented to Place, Oriented to Time Eyes: Yes: PERRLA Speech: WNL Dominant Hand: Right Cranial Nerves II-XII Intact: Yes Gag: Present DTR's: 1+ Left Bicep, 1+ Right Bicep, 1+ Left Tricep, 1+ Right Tricep, 1+ Left Brachioradialis, 1+ Right Brachioradialis, 1+ Left Achilles, 1+ Right Achilles Babinski: Absent Response to light touch: Normal Response to pain prick: Normal Response to temperature: Normal Response to vibration: Normal Movement Disorders: Asterixis Coordination: Normal: Finger to Nose (?d ataxia) Motor Strength: 5/5: Left Arm, Right Arm, Left Leg, Right Leg Gait: Deferred Imaging - Results Cat Scan: Report Reviewed, Image Reviewed Problem List - Problems (1) Hepatic encephalopathy Code(s): K72.90 - HEPATIC FAILURE, UNSPECIFIED WITHOUT COMA (2) Acute UTI Code(s): N39.0 - URINARY TRACT INFECTION, SITE NOT SPECIFIED (3) Sedative dependence Code(s): F13.20 - SEDATIVE, HYPNOTIC OR ANXIOLYTIC DEPENDENCE, UNCOMPLICATED Assessment/Plan 56-year-old male with history of hepatitis C, diabetes, IVDA on methadone, pacemaker, lymphoma was admitted altered mental status. Per EMS, the home health aide found the patient sitting on the couch not moving his right side and responsive only to verbal stimuli. Of note, the patient was seen on September 28 in the emergency department at [facility] following a fall. In the hospital he was found to have liver failure and UTI. UTI Nonfocal neurological exam. CT head is unremarkable. IMPRESSION: metabolic hepatic/ renal encephalopathy. delirium. altered mental status. Plan: - management liver failure per medical team: lactulose, -correct ammonia level. - treat UTI. - banana bag. iv daily. - consider PT/ OT for gait stability. Thank you for this consult
[2016-10-24] MEDS ORDERED: METHADONE HCL 40 MG DISPERSABLE TABLET PO ONE (18:45)
[2016-10-24] MEDS: INSULIN DETEMIR 100 UNITS/ML MDV SQ SCH (21:46)
[2016-10-24] MEDS: ALPRAZolam 0.25 MG TABLET PO PRN (21:49)
[2016-10-25] MEDS: INSULIN SLIDING SCALE (NOVOLOG) 1 VIAL SQ SCH ×2 (06:35→12:09)
[2016-10-25 09:26] LABS: BASOPHIL 0.3 % (0-2.0); EOSINOPHIL 6.2 % (0-4.5); MCH 33.5 pg (25.7-33.7); MCHC 33.6 g/dl (32.0-35.9); MEAN CELL VOLUME 99.6 fl (80-96); MEAN PLT VOLUME 10.1 fl (7.5-11.1); NEUTROPHILS 65.2 % (42.8-82.8); RDW 18.2 % (11.9-15.9); WHITE BLOOD COUNT 4.7 K/mm3 (4.0-10.0)
[2016-10-25 09:43] LABS: PLATELET COUNT 29 K/MM3 (134-434)
[2016-10-25 09:55] LABS: ALBUMIN 2.4 g/dl (3.4-5.0); CALCIUM 7.8 mg/dL (8.5-10.1); CREATININE 1.8 mg/dL (0.7-1.3); TOT PROT 8.3 g/dl (6.4-8.2)
[2016-10-25] MEDS ORDERED: METHADONE HCL 10 MG TABLET ONE (10:30)
[2016-10-25] MEDS ORDERED: METHADONE HCL 5 MG TABLET ONE (10:30)
[2016-10-25] MEDS ORDERED: METHADONE 10 MG, METHADONE 5 MG PO SCH (10:30)
[2016-10-25] MEDS: SPIRONOLACTONE 25 MG TABLET (FP) PO SCH (10:32)
[2016-10-25] MEDS: PANTOPRAZOLE SODIUM 100 ML IVPB SCH (10:33)
[2016-10-25] MEDS: RIFAXIMIN 550 MG TABLET (UD) PO SCH (10:33)
[2016-10-25] MEDS: FUROSEMIDE 40 MG TABLET (FP) PO SCH (10:34)
[2016-10-25] MEDS: ALPRAZolam 0.25 MG TABLET PO PRN (10:34)
--- NOTE | 2016-10-25 12:20 | PN ---
GI Progress Note Subjective: Sitting in chair, eating large lunch. Looking much better-alert and oriented. Wants to go home. - Objective Vital Signs: Vital Signs Temperature 97.5 F L 10/25/16 06:00 Pulse Rate 60 10/25/16 06:00 Respiratory Rate 20 10/25/16 06:00 Blood Pressure 128/75 10/25/16 06:00 O2 Sat by Pulse Oximetry (%) 97 10/24/16 21:00 Constitutional: Well Nourished, No Distress, Thin HENT: Yes: Normocephalic Neck: Yes: Supple Cardiovascular: Yes: Regular Rate and Rhythm Respiratory: Yes: CTA Bilaterally Gastrointestinal Inspection: Yes: Ascites ...Auscultate: Yes: Normoactive Bowel Sounds ...Palpate: Yes: Soft (somewhat distended secondary to ascites) Labs: CBC, BMP 10/25/16 08:50 10/25/16 08:50 INR, PTT INR 1.53 (0.82-1.09) H D 10/23/16 18:36 Assessment/Plan Patient with ESLD, frequently admitted with HE likely due to non-compliance with meds. Recommend improved home care services. Chronic R pleural effusion S/ P VATS. Stable. Continue present regimen for now. Check AFP. Follow Thrombocytopenia unchanged, secondary to hypersplenism. To follow-up at [facility] after discharge. Currently at baseline-can d/c from GI POV
--- NOTE | 2016-10-25 12:33 | PN ---
Progress Note (short form) - Note Progress Note: RENAL Pt is awake and alert denies complaints Last Vital Signs Temp Pulse Resp BP Pulse Ox 97.5 F L 60 20 128/75 99 10/25/16 06:00 10/25/16 06:00 10/25/16 08:00 10/25/16 06:00 10/25/16 08:00 lungs clear cvs s1s2 rr abd soft ext +edema, venous insuff neuro a+ox3 CBC, BMP 10/25/16 08:50 10/25/16 08:50 Current Medications Generic Name Dose Route Start Last Admin Trade Name Freq PRN Reason Stop Dose Admin Acetaminophen 650 mg 10/23/16 16:03 10/24/16 21:48 Tylenol - PO 650 mg Q6H PRN Administration FEVER OR PAIN Albuterol/Ipratropium 1 amp 10/23/16 16:03 Duoneb - NEB Q6H PRN SHORTNESS OF BREATH Alprazolam 0.25 mg 10/23/16 16:03 10/25/16 10:34 Xanax - PO 0.25 mg Q6H PRN Administration ANXIETY Furosemide 40 mg 10/23/16 16:15 10/25/16 10:34 Lasix - PO 40 mg DAILY JADEN Administration Pantoprazole Sodium 100 mls @ 200 mls/hr 10/23/16 16:15 10/25/16 10:33 Protonix 40mg Ivpb (Pre-Docked) IVPB 200 mls/hr DAILY JADEN Administration Insulin Aspart 1 vial 10/23/16 16:30 10/25/16 12:09 Novolog Vial Sliding Scale - SQ Not Given ACHS [facility] Protocol Insulin Detemir 20 units 10/23/16 22:00 10/24/16 21:46 Levemir Vial SQ 20 units HS JADEN Administration Lactulose 20 gm 10/23/16 16:35 10/24/16 21:49 Cephulac (Oral Use) PO 20 gm QID PRN Administration CONSTIPATION Methadone HCl 10 mg/ Methadone 15 mg 10/25/16 10:30 10/25/16 10:33 HCl 5 mg PO 15 mg DAILY@0600 JADEN Administration Rifaximin 550 mg 10/23/16 22:00 10/25/16 10:33 Xifaxan - PO 550 mg BID JADEN Administration Spironolactone 100 mg 10/24/16 10:00 01/01/17 10:32 Aldactone - PO 100 mg DAILY JADEN Administration IMPRESION ckd ?mild starr hepatic encephalopathy PLAN ok to dc should have renal follow up as outpatient monitor weights as a way of measuring diuresis MV
--- NOTE | 2016-10-25 12:47 | DS ---
Physical Examination Vital Signs: Vital Signs Temperature 97.5 F L 10/25/16 06:00 Pulse Rate 60 10/25/16 06:00 Respiratory Rate 20 10/25/16 06:00 Blood Pressure 128/75 10/25/16 06:00 O2 Sat by Pulse Oximetry (%) 97 10/24/16 21:00 Findings/Remarks: SITTING UP ALERT AND ORIENTED WANTS TO GO HOME Cardiovascular: Yes: Regular Rate and Rhythm Respiratory: Yes: Regular, CTA Bilaterally Gastrointestinal: Yes: Normal Bowel Sounds, Soft Neurological: Yes: Alert, Oriented Labs: CBC, BMP 10/25/16 08:50 10/25/16 08:50 Discharge Summary Reason For Visit: HAPATIC ENCEPHALOPATHY,CIRRHOSIS OF LIVER Current Active Problems Acute UTI (Acute) Cirrhosis of liver (Acute) Hepatic encephalopathy (Acute) Hepatitis C virus infection (Acute) Hydrothorax (Acute) Hospital Course: 56-year-old male with history of hepatitis C, diabetes, IVDA on methadone, pacemaker, lymphoma who presents to the emergency department by EMS with altered mental status. Per EMS, the home health aide found the patient sitting on the couch not moving his right side and responsive only to verbal stimuli. Fingerstick in the field was normal. The history is limited secondary to the clinical presentation of the patient. Of note, the patient was seen on September 28 in the emergency department at [facility] following a fall. 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 No: Alzheimer's , Dementia Cardiovascular: Yes: CAD (reported prior MIs -> stents x4 at [facility] in 1998), HTN, Other (PPM palcement at time of [place] in 1998, abnl EKG witth old inferior [place]). No : AFIB Pulmonary: Yes: COPD, Other (PLEURAL EFFUSION WITH PREVIOUS TAPS). No: O2 Dependent Gastrointestinal: Yes: Ascites, Diverticulitis, Esophageal Varices (This patient does NOT have varices), GI Bleed (s/p multiple blood transfusions), Other (gastri varices / ) Hepatobiliary: Yes: Cirrhosis (ESLD), Hepatitis C, Other (PORTAL HYPERTENSION) Renal/: Yes: Renal Inusuff (CKD (baseline 0.9-1.1)) Heme/Onc: Yes: Anemia, Thrombocytopenia Psych: Yes: Addictions (hx of polysubstance abuse & IVDA on maintenance Methadone), Anxiety Endocrine: Yes: Diabetes Mellitus (insulin-dependent) - Past Surgical History Past Surgical History: Yes: Permanent Pacemaker, Stent (x4), Upper Endoscopy ( with gastric varices/sclerotherapy) - Smoking History Smoking history: Former smoker Have you smoked in the past 12 months: No Aproximately how many cigarettes per day: 5 - Alcohol/Substance Use Hx Alcohol Use: Yes History of Substance Use: reports: Heroin (on methadone) Problems (1) Cirrhosis of liver Assessment/Plan: GI ON CASE CONTINUE WITH Orders 10/23/16 13:10 Lactulose (Rectal Use) [Cephulac (Rectal Use)] 200 gm HI ONCE ONE 10/23/16 16:35 Lactulose (Oral Use) [Cephulac (Oral Use)] 20 gm PO QID PRN 10/23/16 22:00 Rifaximin [Xifaxan -] 550 mg PO BID 10/24/16 10:00 Spironolactone [Aldactone -] 100 mg PO DAILY Code(s): K74.60 - UNSPECIFIED CIRRHOSIS OF LIVER Qualifiers: (2) Hepatic encephalopathy Assessment/Plan: ABOVE CULTURES NEGATIVE --DC ABX Code(s): K72.90 - HEPATIC FAILURE, UNSPECIFIED WITHOUT COMA (3) Hydrothorax Assessment/Plan: NO CHANGE FROM PREVIOUS Code(s): J94.8 - OTHER SPECIFIED PLEURAL CONDITIONS (4) Diabetes mellitus, insulin dependent (IDDM), uncontrolled Assessment/Plan: BGM WITH COVERAGE Code(s): E10.65 - TYPE 1 DIABETES MELLITUS WITH HYPERGLYCEMIA Qualifiers: Chronic kidney disease stage: stage 3 (moderate) (5) Lymphoma Code(s): C85.90 - NON-HODGKIN LYMPHOMA, UNSPECIFIED, UNSPECIFIED SITE (7) Thrombocytopenia Code(s): D69.6 - THROMBOCYTOPENIA, UNSPECIFIED DC HOME AND FOLLOW UP AND LABS IB OFFICE Condition: Fair - Instructions Diet, Activity, Other Instructions: FOLLOW UP LABS IN OFFICE IN ONE WEEK Referrals: Jag Thompson MD [Staff Physician] - 1 Week Disposition: HOME - Home Medications Comprehensive Discharge Medication List: Ambulatory Orders Albuterol 2.5/Ipratropium 0.5 [Duoneb -] 1 amp NEB Q6H PRN #120 amp 10/25/16 Furosemide [Lasix -] 40 mg PO DAILY #30 tablet 10/25/16 Insulin (Levemir) [Levemir Vial] 20 units SQ HS ml 10/25/16 Lactulose (Oral Use) [Cephulac -] 20 gm PO QID PRN #240 grams 10/25/16 Pantoprazole Sodium [Protonix -] 40 mg PO DAILY #30 tablet.ec 10/25/16 Rifaximin [Xifaxan -] 550 mg PO BID #60 tablet 10/25/16 Spironolactone [Aldactone -] 100 mg PO DAILY #30 tablet 10/25/16
[2016-10-25 14:15] VITALS: BP 107/75; PULSE 65; TEMP 97.9
== END 2016-10-25 15:02 | disposition home or self-care (01) | DRG 442 ==
LOC: JER 09:55 → JERBED 15:32 → J4W 19:41
PROVIDERS: ADMIT Family Medicine; ATTEND Family Medicine
PROC: HZ81ZZZ Medication Management for Substance Abuse Treatment, Methadone Maintenance (ICD-10-PCS; principal; 2016-10-24)
DX: K72.90 Hepatic failure, unspecified without coma (principal); E72.20 Disorder of urea cycle metabolism, unspecified; C85.90 Non-Hodgkin lymphoma, unspecified, unspecified site; N39.0 Urinary tract infection, site not specified; N17.9 Acute kidney failure, unspecified; J94.8 Other specified pleural conditions; Z95.0 Presence of cardiac pacemaker; D64.9 Anemia, unspecified; F41.9 Anxiety disorder, unspecified; B19.20 Unspecified viral hepatitis C without hepatic coma; F17.210 Nicotine dependence, cigarettes, uncomplicated; R26.81 Unsteadiness on feet; D69.6 Thrombocytopenia, unspecified; Z79.4 Long term (current) use of insulin; K74.60 Unspecified cirrhosis of liver; I25.10 Atherosclerotic heart disease of native coronary artery without angina pectoris; Z95.5 Presence of coronary angioplasty implant and graft; I25.2 Old myocardial infarction; E11.22 Type 2 diabetes mellitus with diabetic chronic kidney disease; E11.65 Type 2 diabetes mellitus with hyperglycemia; I12.9 Hypertensive chronic kidney disease with stage 1 through stage 4 chronic kidney disease, or unspecified chronic kidney disease; N18.9 Chronic kidney disease, unspecified
CPT/HCPCS: 36415; 70450-TC; 71010-TC; 73523-TC; 73552-TC-LT; 80053; 81003; 81015; 82140; 82550; 83605; 84484; 85025; 85027; 85610; 85730; 87040; 87086; 93005; 93010; 99282-25

== ENCOUNTER 2016-11-05 09:10 | Inpatient (IN) | payer OTHER ==
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
[2016-11-05] MEDS ORDERED: SODIUM CHLORIDE 1,000 ML IV STA (09:58)
[2016-11-05] MEDS ORDERED: SODIUM CHLORIDE 1,000 ML IV SCH (10:00)
[2016-11-05] MEDS ORDERED: NALOXONE HCL 0.4 MG/ML VIAL IVPUSH ONE (10:01)
[2016-11-05] MEDS ORDERED: NALOXONE HCL 0.4 MG/ML VIAL ONE (10:33)
[2016-11-05 10:36] LABS: BASOPHIL 0.8 % (0-2.0); EOSINOPHIL 3.5 % (0-4.5); MCH 33.9 pg (25.7-33.7); MCHC 34.4 g/dl (32.0-35.9); MEAN CELL VOLUME 98.3 fl (80-96); MEAN PLT VOLUME 10.7 fl (7.5-11.1); NEUTROPHILS 71.5 % (42.8-82.8); RDW 16.2 % (11.9-15.9); WHITE BLOOD COUNT 4.7 K/mm3 (4.0-10.0)
[2016-11-05 10:56] LABS: PLATELET COUNT 29 K/MM3 (134-434)
[2016-11-05 11:03] LABS: INR 1.51 (0.82-1.09); PROTHROMBIN TIME (PATIENT) 16.8 SEC (9.98-11.88)
[2016-11-05 11:06] LABS: ACTIVATED PTT 36.2 SECONDS (26.9-34.4)
[2016-11-05 11:11] LABS: ALBUMIN 2.4 g/dl (3.4-5.0); CALCIUM 8.1 mg/dL (8.5-10.1); CREATININE 1.9 mg/dL (0.7-1.3); TOT PROT 7.8 g/dl (6.4-8.2)
[2016-11-05] MEDS ORDERED: INSULIN REGULAR HUMAN 100 UNITS/ML *VIAL IVPUSH ONE (11:29)
[2016-11-05] MEDS ORDERED: SODIUM POLYSTYRENE SULFONATE 15 GM/60 ML BOTTLE PO ONE (11:34)
[2016-11-05] MEDS ORDERED: LACTULOSE 20 GM/30 ML UDC (FOR ORAL USE ONLY) PO ONE (12:22)
[2016-11-05] MEDS ORDERED: SODIUM POLYSTYRENE SULFONATE 15 GM/60 ML BOTTLE ONE (12:39)
[2016-11-05] MEDS ORDERED: LACTULOSE 20 GM/30 ML UDC (FOR ORAL USE ONLY) ONE (12:39)
[2016-11-05] MEDS ORDERED: INSULIN REGULAR HUMAN 100 UNITS/ML *VIAL ONE (12:40)
[2016-11-05 15:02] LABS: URINE MARIJUANA THC NEGATIVE ng/ml (CUTOFF=50)
--- NOTE | 2016-11-05 15:04 | HP ---
Admitting History and Physical - Primary Care Physician PCP: Jag Thompson - Admission History of Present Illness: The patient is a 56 year old male, with a significant past medical history of hepatic encephalopathy, diabetes and DKA, IVDA on methadone, pacemaker, 4 cardiac stents and lymphoma, who presents to the emergency department via EMS for altered mental status as per home health aide today. The patient states he felt dizzy today. He denies chest pain, shortness of breath, headaches.. He denies fever, chills, nausea, vomit, diarrhea and constipation. He denies dysuria, frequency, urgency and hematuria. Allergies: nalbuphine Hcl, octreotide Past surgical history: GI polyp removal, GI waxing for lower GI bleed patient was given lactulose in ER when i went to see him now for admission he kept saying that he wants to sign himself out AMA i tired to explain to patient the risks of signing himself out but he would not listen he says he wants to leave he knew his phone number and his address to give to the cab patient knew his name was talking clearly and coherently and still depsite me telling him he was saying he klever leave the building. 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 No: Alzheimer's , Dementia Cardiovascular: Yes: CAD (reported prior MIs -> stents x4 at [facility] in 1998), HTN, Other (PPM palcement at time of [place] in 1998, abnl EKG witth old inferior [place]). No : AFIB Pulmonary: Yes: COPD, Other (PLEURAL EFFUSION WITH PREVIOUS TAPS). No: O2 Dependent Gastrointestinal: Yes: Ascites, Diverticulitis, Esophageal Varices (This patient does NOT have varices), GI Bleed (s/p multiple blood transfusions), Other (gastri varices / ) Hepatobiliary: Yes: Cirrhosis (ESLD), Hepatitis C, Other (PORTAL HYPERTENSION) Renal/: Yes: Renal Inusuff (CKD (baseline 0.9-1.1)) Heme/Onc: Yes: Anemia, Thrombocytopenia Psych: Yes: Addictions (hx of polysubstance abuse & IVDA on maintenance Methadone), Anxiety Endocrine: Yes: Diabetes Mellitus (insulin-dependent) - Past Surgical History Past Surgical History: Yes: Permanent Pacemaker, Stent (x4), Upper Endoscopy ( with gastric varices/sclerotherapy) - Smoking History Smoking history: Former smoker Have you smoked in the past 12 months: No Aproximately how many cigarettes per day: 5 - Alcohol/Substance Use Hx Alcohol Use: Yes History of Substance Use: reports: Heroin (on methadone) - Social History ADL: Independent Occupation: not employed History of Recent Travel: No Home Medications - Allergies Allergies/Adverse Reactions: Allergies Allergy/AdvReac Type Severity Reaction Status Date / Time nalbuphine HCl [From Nubain] Allergy Verified 11/05/16 09:34 octreotide AdvReac Verified 11/05/16 09:34 - Home Medications Home Medications: Ambulatory Orders Albuterol 2.5/Ipratropium 0.5 [Duoneb -] 1 amp NEB Q6H PRN #120 amp 10/25/16 Furosemide [Lasix -] 40 mg PO DAILY #30 tablet 10/25/16 Insulin (Levemir) [Levemir Vial] 20 units SQ HS ml 10/25/16 Lactulose (Oral Use) [Cephulac -] 20 gm PO QID PRN #240 grams 10/25/16 Pantoprazole Sodium [Protonix -] 40 mg PO DAILY #30 tablet.ec 10/25/16 Rifaximin [Xifaxan -] 550 mg PO BID #60 tablet 10/25/16 Spironolactone [Aldactone -] 100 mg PO DAILY #30 tablet 10/25/16 Unobtainable 11/05/16 Family Disease History - Family Disease History Family Disease History: Heart Disease: Father (OPEN HEART SX,), CA: Mother (BREAST CANCER,) Physical Examination Vital Signs: Vital Signs Temperature 98.3 F 11/05/16 09:55 Pulse Rate 62 11/05/16 09:55 Respiratory Rate 18 11/05/16 09:55 Blood Pressure 112/53 11/05/16 09:55 O2 Sat by Pulse Oximetry (%) 98 11/05/16 09:55 Constitutional: Yes: Calm Cardiovascular: Yes: Regular Rate and Rhythm, S1, S2 Respiratory: Yes: Diminished Gastrointestinal: Yes: Ascites, Distention Extremities: Yes: Other (discolorations) Neurological: Yes: Other (patient knew his name and address and where he lives walking in straight line and also was awake alert knew he was in ER) Problem List - Problems (1) Hepatic encephalopathy Assessment/Plan: patient got lactulose i saw him three later after the dose was given patient was awake alert knew his surrounding re recognized me and knew his name address patient kept insisting that he wants to go home so signed himself out despite all the risks i explained him Code(s): K72.90 - HEPATIC FAILURE, UNSPECIFIED WITHOUT COMA (2) Cirrhosis of liver Assessment/Plan: not candidate for transplant Code(s): K74.60 - UNSPECIFIED CIRRHOSIS OF LIVER Qualifiers: (3) Hepatorenal syndrome Code(s): K76.7 - HEPATORENAL SYNDROME (4) Sedative dependence Assessment/Plan: take methadone urine tox noted Code(s): F13.20 - SEDATIVE, HYPNOTIC OR ANXIOLYTIC DEPENDENCE, UNCOMPLICATED Assessment/Plan patient signed himxelf out AMA
--- NOTE | 2016-11-05 15:23 | DS ---
Physical Examination Vital Signs: Vital Signs Temperature 98.3 F 11/05/16 09:55 Pulse Rate 62 11/05/16 09:55 Respiratory Rate 18 11/05/16 09:55 Blood Pressure 112/53 11/05/16 09:55 O2 Sat by Pulse Oximetry (%) 98 11/05/16 09:55 Constitutional: Yes: Calm Cardiovascular: Yes: Regular Rate and Rhythm, S1, S2 Respiratory: Yes: Diminished Gastrointestinal: Yes: Ascites, Distention Neurological: Yes: Other (patient able to walk and was orieinted to name place knew his name and phone number of who to call as well) Discharge Summary Reason For Visit: ARF,HEPATORENAL SYNDROME,CIRRHOSIS LIVER Current Active Problems Acute renal failure (Acute) Cirrhosis of liver (Acute) Hepatorenal syndrome (Acute) Condition: Guarded - Instructions Referrals: Jag Thompson MD [Primary Care Provider] - Disposition: AGAINST MEDICAL ADVICE - Home Medications Comprehensive Discharge Medication List: Ambulatory Orders Albuterol 2.5/Ipratropium 0.5 [Duoneb -] 1 amp NEB Q6H PRN #120 amp 10/25/16 Furosemide [Lasix -] 40 mg PO DAILY #30 tablet 10/25/16 Insulin (Levemir) [Levemir Vial] 20 units SQ HS ml 10/25/16 Lactulose (Oral Use) [Cephulac -] 20 gm PO QID PRN #240 grams 10/25/16 Pantoprazole Sodium [Protonix -] 40 mg PO DAILY #30 tablet.ec 10/25/16 Rifaximin [Xifaxan -] 550 mg PO BID #60 tablet 10/25/16 Spironolactone [Aldactone -] 100 mg PO DAILY #30 tablet 10/25/16 Unobtainable 11/05/16
--- NOTE | 2016-11-05 17:40 | CONSULT ---
Cardiology Consult (text) - Consultation Consultation Note: CC: confusion 56 yo male smoker, CAD with multiple reported MIs, reported stents x4 at [facility] ( no details available), [employer] pacemaker, HTN, possible afib, h/o subarachnoid and intraparenchymal hemorrhage, COPD, IDDM, Hep C cirrhosis/ESLD w / portal HTN/esophageal varices/ascites/thrombocytopenia, low-grade B-cell lymphoma, Diverticulitis, CKD, hydrothorax with prior thoracentesis and chest tube, chronic R pleural effusion, h/o severe GI bleed due to gastric varices, prior hx of polysubstance abuse & IVDA on maintenance Methadone, anxiety p/w confusion. Patient states he was brought here after he was noted to be altered. Patient does not recall feeling confused or altered at the time. Feels normal now, no complaints no cp, sob, palps, dizziness, orthopnea, pnd, le edema, bleeding, claudication. no f/c/s, n/v/d, rashes, cough, congestion. Pmhx/Pshx: per phi Social hx: Current every day smoker, on methadone maintenance. denies etoh use. fam hx: Father (OPEN HEART SX,) ros: per phi Home Medications - Allergies Allergies/Adverse Reactions: Allergies Allergy/AdvReac Type Severity Reaction Status Date / Time nalbuphine HCl [From Nubain] Allergy Verified 08/19/16 08:12 octreotide AdvReac Verified 08/19/16 08:12 Ambulatory Orders Albuterol 2.5/Ipratropium 0.5 [Duoneb -] 1 amp NEB Q6H PRN #120 amp 10/25/16 Furosemide [Lasix -] 40 mg PO DAILY #30 tablet 10/25/16 Lactulose (Oral Use) [Cephulac -] 20 gm PO QID PRN #240 grams 10/25/16 Pantoprazole Sodium [Protonix -] 40 mg PO DAILY #30 tablet.ec 10/25/16 Rifaximin [Xifaxan -] 550 mg PO BID #60 tablet 10/25/16 Spironolactone [Aldactone -] 100 mg PO DAILY #30 tablet 10/25/16 Insulin (Levemir) [Levemir Vial] 30 units SQ HS 11/05/16 Methadone [Dolophine -] 10 mg PO DAILY 11/05/16 Nadolol 40 mg/day Current Medications Albuterol/Ipratropium (Duoneb -) 1 amp NEB Q4H PRN PRN Reason: SHORTNESS OF BREATH Furosemide (Lasix -) 40 mg PO DAILY [facility] Sodium Chloride (Normal Saline -) 1,000 mls @ 125 mls/hr IV ASDIR [facility] Last Admin: 11/05/16 12:30 Dose: 125 mls/hr Pantoprazole Sodium (Protonix 40mg Ivpb (Pre-Docked)) 100 mls @ 200 mls/hr IVPB DAILY [facility] Insulin Aspart (Novolog Vial Sliding Scale -) 1 vial SQ ACHS JADEN PRN Reason: Protocol Last Admin: 11/05/16 21:47 Dose: 8 unit Insulin Detemir (Levemir Vial) 20 units SQ HS [facility] Last Admin: 11/05/16 21:42 Dose: 20 unit Lactulose (Cephulac (Oral Use)) 20 gm PO QID PRN PRN Reason: CONSTIPATION Last Admin: 11/05/16 21:50 Dose: 20 gm Methadone HCl (Dolophine -) 10 mg PO DAILY@0600 [facility] Rifaximin (Xifaxan -) 550 mg PO BID [facility] Last Admin: 11/05/16 21:49 Dose: 550 mg Spironolactone (Aldactone -) 100 mg PO DAILY [facility] Zinc Sulfate (Orazinc -) 220 mg PO DAILY [facility] Vital Signs - 24 hr 11/05/16 11/05/16 11/05/16 09:55 16:01 18:04 Temperature 98.3 F 97.7 F Pulse Rate 62 61 Pulse Rate [ 63 Radial] Respiratory 18 18 14 Rate Blood Pressure 112/53 137/71 Blood Pressure 110/63 [Right Arm] O2 Sat by Pulse 98 96 99 Oximetry (%) Intake & Output 11/03/16 11/04/16 11/05/16 11/06/16 07:59 07:59 07:59 07:59 Intake Total 300 Balance 300 Weight 165 lb NAD, calm. Slightly lethargic but coherent JVD flat, neck supple diminshed bs on right, nl effort rrr nl s1, s2 no m/r/g + bs soft nt + distension ext without e/c/c + dp/pt no jaundice, diaphoresis CBC, BMP 11/05/16 10:21 Laboratory Tests 11/05/16 10:21 Sodium 133 L Potassium 5.9 H D Chloride 104 Carbon Dioxide 24 Anion Gap 5 L BUN 63 H D Creatinine 1.9 H Creat Clearance w eGFR 36.85 Laboratory Tests 11/05/16 11/05/16 11/05/16 09:50 10:21 10:21 INR Lactic Acid 1.672 Magnesium 2.0 Total Bilirubin 1.0 AST 50 H D ALT 36 Alkaline Phosphatase 248 H Ammonia 111.97 H Albumin 2.4 L 11/05/16 11/05/16 10:21 16:15 INR 1.51 H Lactic Acid Magnesium Total Bilirubin AST ALT Alkaline Phosphatase Ammonia 65.64 H Albumin EKG: sequential AV pacing. Prolonged AV delay. PPM interrogation: Events: nsvt. Noted to have high atrial thresholds ( increase from priors), output adjusted. CXR: mod R Pleural effusion head CT: No acute pathology 08/2016 TTE: Mild lvh. Nl lv/rv. mild LAE. mod-sev eccentric MR. Mod TR. RVSP 40 -50. mod ao dilation. MIBI 2010 large inferior scar with no ischemia; he has had no angina. 56 yo male smoker, CAD with multiple reported MIs, reported stents x4 at [facility] ( no details available), [employer] pacemaker, HTN, h/o subarachnoid and intraparenchymal hemorrhage, COPD, IDDM, Hep C cirrhosis/ESLD w/ portal HTN/ esophageal varices/ascites/thrombocytopenia, low-grade B-cell lymphoma, Diverticulitis, CKD, hydrothorax with prior thoracentesis and chest tube, chronic R pleural effusion, h/o severe GI bleed due to gastric varices, prior hx of polysubstance abuse & IVDA on maintenance Methadone, anxiety p/w confusion. Altered mental status - likely 2/2 metabolic derangements. - infectious/neuro w/u at discretion of pmd - would get cardiac enzymes. EKG v-paced. CAD with h/o remote inferior MT and stenting -tx limited by severe comorbidities (hep c cirrhosis with esoph varices/ recurrent GIB/profound thromboyctopenia). -deferring anti-PLT, statins (thrombocytopenia, advanced cirrhosis) -has been maintained on low dose nadolol (portal HTN indication as well), would resume. -no typical anginal symptoms. CE's as mentioned above. pleural effusion, right (chronic): -s/p prior vats and chest tube and chest tube drainage on recent admission to [facility] 09/2016 SHANKAR: -con't to monitor with ongoing outpatient diuretic regimen Essential hypertension -pt has tendency to low bp's. Monitor closely on aldactone. Resume nadolol. h/o UGIB/esophageal varices -no active bleeding -Resume nadolol s/p Pacemaker -PPM checked (Monitoring Division) here and showed elevated atrial thresholds (output adjusted). Increased thresholds likely related to metabolic disturbances. Also with profound AV delay. Would benefit from repeat interrogation as outpatient once acute issue resolve to reassess thresholds. Consideration for shortening AV delay time. Hep C cirrhosis with portal htn, thrombocytopenia, coagulopathy -Nadolol as above. Con't aldactone, lasix. -management of elevated ammonia/possible hepatic encephalopathy per pmd/gi Lymphoma -dx'd 2013. per pmd. mild ao dilation - nadolol as above.
[2016-11-05 18:41] VITALS: BMI 24.3
[2016-11-05] MEDS ORDERED: ALBUTEROL SO4 2.5/IPRATROPIUM 0.5 INH SOL 3 ML VIAL.NEB. NEB PRN (18:41)
[2016-11-05] MEDS ORDERED: INSULIN (NOVOLOG) ASPART 100 UNITS/ML 10ML VIAL SQ ONE (18:45)
[2016-11-05] MEDS: INSULIN DETEMIR 100 UNITS/ML MDV SQ SCH (21:42)
[2016-11-05] MEDS: INSULIN SLIDING SCALE (NOVOLOG) 1 VIAL SQ SCH (21:47)
[2016-11-05] MEDS: RIFAXIMIN 550 MG TABLET (UD) PO SCH (21:49)
[2016-11-05] MEDS: LACTULOSE 20 GM/30 ML UDC (FOR ORAL USE ONLY) PO PRN (21:50)
[2016-11-06] MEDS ORDERED: METHADONE HCL 10 MG TABLET PO SCH ×2 (06:00→08:43)
[2016-11-06] MEDS: INSULIN SLIDING SCALE (NOVOLOG) 1 VIAL SQ SCH ×4 (07:30→23:41)
[2016-11-06 08:27] LABS: BASOPHIL 0.3 % (0-2.0); EOSINOPHIL 3.3 % (0-4.5); MCH 34.1 pg (25.7-33.7); MCHC 34.9 g/dl (32.0-35.9); MEAN CELL VOLUME 97.9 fl (80-96); MEAN PLT VOLUME 10.2 fl (7.5-11.1); NEUTROPHILS 71.7 % (42.8-82.8); RDW 16.2 % (11.9-15.9); WHITE BLOOD COUNT 2.9 K/mm3 (4.0-10.0)
[2016-11-06 08:30] LABS: PLATELET COUNT 26 K/MM3 (134-434)
[2016-11-06 08:32] LABS: INR 1.59 (0.82-1.09); PROTHROMBIN TIME (PATIENT) 17.6 SEC (9.98-11.88)
[2016-11-06 08:43] LABS: ALBUMIN 2.2 g/dl (3.4-5.0)
--- NOTE | 2016-11-06 08:44 | PN ---
Progress Note, Physician - Current Medication List Current Medications: Active Medications Albuterol/Ipratropium (Duoneb -) 1 amp NEB Q4H PRN PRN Reason: SHORTNESS OF BREATH Furosemide (Lasix -) 40 mg PO DAILY [facility] Sodium Chloride (Normal Saline -) 1,000 mls @ 125 mls/hr IV ASDIR [facility] Last Admin: 11/05/16 12:30 Dose: 125 mls/hr Pantoprazole Sodium (Protonix 40mg Ivpb (Pre-Docked)) 100 mls @ 200 mls/hr IVPB DAILY [facility] Insulin Aspart (Novolog Vial Sliding Scale -) 1 vial SQ ACHS JADEN PRN Reason: Protocol Last Admin: 11/06/16 07:30 Dose: 4 unit Insulin Detemir (Levemir Vial) 20 units SQ HS [facility] Last Admin: 11/05/16 21:42 Dose: 20 unit Lactulose (Cephulac (Oral Use)) 20 gm PO QID PRN PRN Reason: CONSTIPATION Last Admin: 11/05/16 21:50 Dose: 20 gm Methadone HCl (Dolophine -) 10 mg PO DAILY@0600 [facility] Nadolol (Corgard -) 20 mg PO DAILY [facility] Rifaximin (Xifaxan -) 550 mg PO BID [facility] Last Admin: 11/05/16 21:49 Dose: 550 mg Zinc Sulfate (Orazinc -) 220 mg PO DAILY [facility] - Objective Vital Signs: Vital Signs Temperature 99.1 F 11/06/16 08:27 Pulse Rate 70 11/06/16 08:27 Respiratory Rate 18 11/06/16 08:27 Blood Pressure 124/74 11/06/16 08:27 O2 Sat by Pulse Oximetry (%) 99 11/05/16 21:00 Cardiovascular: Yes: S1, S2 Respiratory: Yes: Regular, CTA Bilaterally Gastrointestinal: Yes: Normal Bowel Sounds, Soft Labs: CBC, BMP 11/06/16 07:00 INR, PTT INR 1.59 (0.82-1.09) H 11/06/16 07:00 Problem List - Problems (1) Hepatic encephalopathy Assessment/Plan: LACTULOSE GI Code(s): K72.90 - HEPATIC FAILURE, UNSPECIFIED WITHOUT COMA (2) Cirrhosis of liver Assessment/Plan: ABOVE Code(s): K74.60 - UNSPECIFIED CIRRHOSIS OF LIVER Qualifiers: (3) Diabetes mellitus, insulin dependent (IDDM), uncontrolled Assessment/Plan: BGM Code(s): E10.65 - TYPE 1 DIABETES MELLITUS WITH HYPERGLYCEMIA Qualifiers: Chronic kidney disease stage: stage 3 (moderate) (4) Lymphoma Code(s): C85.90 - NON-HODGKIN LYMPHOMA, UNSPECIFIED, UNSPECIFIED SITE
[2016-11-06 08:46] LABS: BILIRUBIN,TOTAL 0.9 mg/dL (0.2-1.0); CREATININE 1.5 mg/dL (0.7-1.3); TOT PROT 7.3 g/dl (6.4-8.2)
[2016-11-06] MEDS ORDERED: PT OWN MED DRAWER 7, Y5N ONE (09:53)
[2016-11-06] MEDS ORDERED: SPIRONOLACTONE 25 MG TABLET (FP) PO SCH (10:00)
[2016-11-06] MEDS ORDERED: FUROSEMIDE 40 MG TABLET (FP) PO SCH (10:00)
[2016-11-06] MEDS ORDERED: PANTOPRAZOLE SODIUM 100 ML IVPB SCH (10:00)
[2016-11-06] MEDS: ZINC SULFATE 220 MG CAPSULE (FP) PO SCH (10:08)
[2016-11-06] MEDS: NADOLOL 20 MG TABLET (FP) PO SCH (10:08)
[2016-11-06] MEDS: LACTULOSE 20 GM/30 ML UDC (FOR ORAL USE ONLY) PO PRN (10:08)
[2016-11-06] MEDS: RIFAXIMIN 550 MG TABLET (UD) PO SCH ×2 (10:08→22:31)
[2016-11-06] MEDS: PANTOPRAZOLE 40 MG TABLET (FP) PO SCH (10:08)
[2016-11-06] MEDS ORDERED: INSULIN (NOVOLOG) ASPART 100 UNITS/ML 10ML VIAL ONE (11:43)
[2016-11-06] MEDS: LACTULOSE 20 GM/30 ML UDC (FOR ORAL USE ONLY) PO SCH ×4 (11:47→22:30)
[2016-11-06] MEDS ORDERED: METHADONE HCL 10 MG TABLET ONE (12:03)
[2016-11-06] MEDS ORDERED: METHADONE HCL 5 MG TABLET ONE (12:04)
[2016-11-06] MEDS: METHADONE 10 MG, METHADONE 5 MG PO SCH (12:06)
--- NOTE | 2016-11-06 15:23 | PN ---
Progress Note (short form) - Note Progress Note: CC: confusion S: Current Medications Albuterol/Ipratropium (Duoneb -) 1 amp NEB Q4H PRN PRN Reason: SHORTNESS OF BREATH Furosemide (Lasix -) 40 mg PO DAILY [facility] Last Admin: 11/06/16 10:08 Dose: 40 mg Insulin Aspart (Novolog Vial Sliding Scale -) 1 vial SQ ACHS [facility] PRN Reason: Protocol Last Admin: 11/06/16 11:47 Dose: 2 unit Insulin Detemir (Levemir Vial) 20 units SQ HS [facility] Last Admin: 11/05/16 21:42 Dose: 20 unit Lactulose (Cephulac (Oral Use)) 30 gm PO QID [facility] Last Admin: 11/06/16 14:28 Dose: 30 gm Methadone HCl 10 mg/ Methadone (HCl 5 mg) 15 mg PO DAILY@0600 [facility] Last Admin: 11/06/16 12:06 Dose: 15 mg Nadolol (Corgard -) 20 mg PO DAILY [facility] Last Admin: 11/06/16 10:08 Dose: 20 mg Pantoprazole Sodium (Protonix -) 40 mg PO DAILY [facility] Last Admin: 11/06/16 10:08 Dose: 40 mg Rifaximin (Xifaxan -) 550 mg PO BID [facility] Last Admin: 11/06/16 10:08 Dose: 550 mg Zinc Sulfate (Orazinc -) 220 mg PO DAILY [facility] Last Admin: 11/06/16 10:08 Dose: 220 mg Vital Signs - 24 hr 11/05/16 11/05/16 11/05/16 16:01 18:04 19:39 Temperature 97.7 F 97.7 F Pulse Rate 61 66 Pulse Rate [ 63 Radial] Respiratory 18 14 18 Rate Blood Pressure 137/71 127/98 Blood Pressure 110/63 [Right Arm] O2 Sat by Pulse 96 99 Oximetry (%) 11/05/16 11/06/16 11/06/16 21:00 06:00 08:27 Temperature 99.0 F 99.1 F Pulse Rate 72 70 Pulse Rate [ Radial] Respiratory 18 18 18 Rate Blood Pressure 116/69 124/74 Blood Pressure [Right Arm] O2 Sat by Pulse 99 Oximetry (%) 11/06/16 11/06/16 09:00 15:12 Temperature 99.3 F Pulse Rate 66 Pulse Rate [ Radial] Respiratory 18 Rate Blood Pressure Blood Pressure [Right Arm] O2 Sat by Pulse 96 Oximetry (%) Intake & Output 11/04/16 11/05/16 11/06/16 11/07/16 07:59 07:59 07:59 07:59 Intake Total 300 600 Balance 300 600 Weight 165 lb NAD, calm. Slightly lethargic but coherent JVD flat, neck supple diminshed bs on right diffuse crackles/wheezes, nl effort rrr nl s1, s2 no m/r/g + bs soft nt + distension ext without e/c/c + dp/pt no jaundice, diaphoresis CBC, BMP 11/06/16 07:00 11/06/16 07:00 Laboratory Tests 11/06/16 11/06/16 11/06/16 07:00 07:00 07:00 INR 1.59 H Total Bilirubin 0.9 AST 53 H ALT 36 Alkaline Phosphatase 255 H Ammonia 192.06 H Albumin 2.2 L EKG: sequential AV pacing. Prolonged AV delay. PPM interrogation: Events: nsvt. Noted to have high atrial thresholds ( increase from priors), output adjusted. CXR: mod R Pleural effusion head CT: No acute pathology 08/2016 TTE: Mild lvh. Nl lv/rv. mild LAE. mod-sev eccentric MR. Mod TR. RVSP 40 -50. mod ao dilation. MIBI 2010 large inferior scar with no ischemia; he has had no angina. 56 yo male smoker, CAD with multiple reported MIs, reported stents x4 at [facility] ( no details available), [employer] pacemaker, HTN, h/o subarachnoid and intraparenchymal hemorrhage, COPD, IDDM, Hep C cirrhosis/ESLD w/ portal HTN/ esophageal varices/ascites/thrombocytopenia, low-grade B-cell lymphoma, Diverticulitis, CKD, hydrothorax with prior thoracentesis and chest tube, chronic R pleural effusion, h/o severe GI bleed due to gastric varices, prior hx of polysubstance abuse & IVDA on maintenance Methadone, anxiety p/w confusion. Altered mental status - likely 2/2 metabolic derangements. - infectious/neuro w/u at discretion of pmd - would get cardiac enzymes. EKG v-paced. CAD with h/o remote inferior CA and stenting -tx limited by severe comorbidities (hep c cirrhosis with esoph varices/ recurrent GIB/profound thromboyctopenia). -deferring anti-PLT, statins (thrombocytopenia, advanced cirrhosis) -has been maintained on low dose nadolol (portal HTN indication as well), would resume. -no typical anginal symptoms. CE's as mentioned above. pleural effusion, right (chronic): -s/p prior vats and chest tube and chest tube drainage on recent admission to [facility] 09/2016 SHANKAR: -con't to monitor with ongoing outpatient diuretic regimen. Holding aldactone Essential hypertension -pt has tendency to low bp's. Nadolol resumed (at lower dose). Aldactone held in setting of SHANKAR and hyperkalemia, consider resuming at lower dose. Will defer to renal consult. h/o UGIB/esophageal varices -no active bleeding -Resumed nadolol s/p Pacemaker -PPM checked (vLine) here and showed elevated atrial thresholds (output adjusted). Increased thresholds likely related to metabolic disturbances. Also with profound AV delay. Would benefit from repeat interrogation as outpatient once acute issue resolve to reassess thresholds. Consideration for shortening AV delay time per outpatient fast food manager. Hep C cirrhosis with portal htn, thrombocytopenia, coagulopathy -Con't nadolol, lasix. Holding aldactone as above. -management of elevated ammonia/possible hepatic encephalopathy per pmd/gi Lymphoma -dx'd 2013. per pmd. mild ao dilation - nadolol as above.
--- NOTE | 2016-11-06 17:06 | PN ---
Progress Note (short form) - Note Progress Note: Patient seen and examined --CONSULT DICTATED 56 year old with multiple co-morbid medical issues. History of hepatitis c with cirrhosis, hypersplenism, portal hypertension, with gastric and esophageal varices, (Hx of g.i. bleeding) pancytopenia with platelets refractory to infusion and to steroid therapy. Hx of ASHD, s/p multiple MT's with stenting . Hx of pacemaker. Has chronic pancytopenia and coagulopathy. Presented with confusion secondary to hepatic encephalopathy with elevated ammonia being treated with lactulose. Would maintain Hct at 25% or higher range if feasible. Would not treat low WBC or platelets as patient is refractory to plt. infusions. ANC adequate for infection.
--- NOTE | 2016-11-06 18:00 | CONSULT ---
Consult Consult Specialty:: Nephrology Reason for Consultation:: CKD and hyperkalemia - History of Present Illness Chief Complaint: confusion History of Present Illness: Pt is a 56 year old male with pmhx of CAD, HTN, a-fib, liver cirrhosis, subarachnoid hemmorrhage, DM, COPD, hep C, CKD and b-cell lymphoma who presents to the ER with increased confusion. He was found to have elevated ammonia. He is on a methadone program. He does not remember what happened before he came to the hospital. He is awake and conversing. He is sluggish as times. He denies dysuria. He says he has history of kidney disease but does not know the severity. He denies nsaid use. He denies hematuria. 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: Yes: Other (hepatic encephalopathy-currently more alert) Cardio/Vascular: Yes: CAD (reported prior MIs -> stents x4 at [facility] in 1998), HTN , Other (PPM palcement at time of PA in 1998, abnl EKG witth old inferior PA) Pulmonary: Yes: COPD, Other (PLEURAL EFFUSION WITH PREVIOUS TAPS) Gastrointestinal: Yes: Ascites, Diverticulitis, Esophageal Varices (This patient does NOT have varices), GI Bleed (s/p multiple blood transfusions), Other (gastri varices / ) Hepatobiliary: Yes: Cirrhosis (ESLD), Hepatitis C, Other (PORTAL HYPERTENSION) Renal/: Yes: Renal Inusuff (CKD (baseline 0.9-1.1)) Psych: Yes: Addictions (hx of polysubstance abuse & IVDA on maintenance Methadone), Anxiety Endocrine: Yes: Diabetes Mellitus (insulin-dependent) - Past Surgical History Past Surgical History: Yes: Permanent Pacemaker, Stent (x4), Upper Endoscopy ( with gastric varices/sclerotherapy) - Alcohol/Substance Use Hx Alcohol Use: No History of Substance Use: reports: Heroin (on methadone) - Smoking History Smoking history: Current some day smoker Have you smoked in the past 12 months: No Aproximately how many cigarettes per day: 5 - Social History Usual Living Arrangement: Other ( from . The youngest of his 3 children lives with him) ADL: Independent Occupation: not employed History of Recent Travel: No Home Medications - Allergies Allergies/Adverse Reactions: Allergies Allergy/AdvReac Type Severity Reaction Status Date / Time nalbuphine HCl [From Nubain] Allergy Verified 11/05/16 09:34 octreotide AdvReac Verified 11/05/16 09:34 - Home Medications Home Medications: Ambulatory Orders Albuterol 2.5/Ipratropium 0.5 [Duoneb -] 1 amp NEB Q6H PRN #120 amp 10/25/16 Furosemide [Lasix -] 40 mg PO DAILY #30 tablet 10/25/16 Lactulose (Oral Use) [Cephulac -] 20 gm PO QID PRN #240 grams 10/25/16 Pantoprazole Sodium [Protonix -] 40 mg PO DAILY #30 tablet.ec 10/25/16 Rifaximin [Xifaxan -] 550 mg PO BID #60 tablet 10/25/16 Spironolactone [Aldactone -] 100 mg PO DAILY #30 tablet 10/25/16 Insulin (Levemir) [Levemir Vial] 30 units SQ HS 11/05/16 Methadone [Dolophine -] 10 mg PO DAILY 11/05/16 Family Disease History - Family Disease History Family Disease History: Heart Disease: Father (OPEN HEART SX,), CA: Mother (BREAST CANCER,) Review of Systems - Review of Systems Constitutional: reports: Malaise Eyes: reports: No Symptoms HENT: reports: No Symptoms Neck: reports: No Symptoms Cardiovascular: reports: Edema, Shortness of Breath Respiratory: reports: SOB, SOB on Exertion Gastrointestinal: reports: Other (ascites) Genitourinary: reports: No Symptoms Musculoskeletal: reports: No Symptoms Neurological: reports: Change in LOC, Confusion Endocrine: reports: No Symptoms Physical Exam Vital Signs: Vital Signs Temperature 98.9 F 11/06/16 16:56 Pulse Rate 86 11/06/16 16:56 Respiratory Rate 20 11/06/16 16:56 Blood Pressure 123/80 11/06/16 16:56 O2 Sat by Pulse Oximetry (%) 96 11/06/16 09:00 Constitutional: Yes: Calm Eyes: Yes: Conjunctiva Clear HENT: Yes: Atraumatic Cardiovascular: Yes: S1, S2 Respiratory: Yes: Diminished Gastrointestinal: Yes: Ascites Renal/: Yes: WNL Musculoskeletal: Yes: Muscle Weakness Edema: Yes Edema: LLE: Trace, RLE: Trace Neurological: Yes: Oriented Labs: CBC, BMP 11/06/16 07:00 11/06/16 07:00 Laboratory Tests 09/15/16 09/28/16 10/23/16 17:18 09:10 10:10 WBC Hgb Plt Count INR PTT (Actin FS) Sodium Potassium Chloride Carbon Dioxide Anion Gap BUN Creatinine 1.7 H D 1.5 H 1.7 H Ammonia Urine Protein Urine Blood Opiates Screen Methadone Screen Barbiturate Screen Phencyclidine Screen Ur Amphetamines Screen MDMA (Ecstasy) Screen Benzodiazepines Screen Cocaine Screen U Marijuana (THC) Screen Alcohol, Quantitative 10/23/16 10/24/16 10/24/16 10:10 06:00 06:00 WBC Hgb Plt Count 36 L* INR PTT (Actin FS) Sodium Potassium Chloride Carbon Dioxide Anion Gap BUN Creatinine 1.6 H Ammonia Urine Protein 1+ H Urine Blood 3+ H Opiates Screen Methadone Screen Barbiturate Screen Phencyclidine Screen Ur Amphetamines Screen MDMA (Ecstasy) Screen Benzodiazepines Screen Cocaine Screen U Marijuana (THC) Screen Alcohol, Quantitative 10/25/16 10/25/16 11/05/16 08:50 08:50 10:21 WBC Hgb Plt Count 29 L* INR PTT (Actin FS) Sodium Potassium Chloride Carbon Dioxide Anion Gap BUN Creatinine 1.8 H 1.9 H Ammonia Urine Protein Urine Blood Opiates Screen Methadone Screen Barbiturate Screen Phencyclidine Screen Ur Amphetamines Screen MDMA (Ecstasy) Screen Benzodiazepines Screen Cocaine Screen U Marijuana (THC) Screen Alcohol, Quantitative 11/05/16 11/05/16 11/05/16 10:21 10:21 11:30 WBC Hgb 9.9 L Plt Count 29 L* INR 1.51 H PTT (Actin FS) 36.2 H D Sodium Potassium Chloride Carbon Dioxide Anion Gap BUN Creatinine Ammonia Urine Protein Urine Blood Opiates Screen Methadone Screen Barbiturate Screen Phencyclidine Screen Ur Amphetamines Screen MDMA (Ecstasy) Screen Benzodiazepines Screen Cocaine Screen U Marijuana (THC) Screen Alcohol, Quantitative < 5.0 11/05/16 11/06/16 11/06/16 14:00 07:00 07:00 WBC 2.9 L D Hgb 9.3 L Plt Count 26 L* INR 1.59 H PTT (Actin FS) Sodium Potassium Chloride Carbon Dioxide Anion Gap BUN Creatinine Ammonia Urine Protein Urine Blood Opiates Screen Negative Methadone Screen Positive Barbiturate Screen Negative Phencyclidine Screen Negative Ur Amphetamines Screen Negative MDMA (Ecstasy) Screen Negative Benzodiazepines Screen Positive Cocaine Screen Negative U Marijuana (THC) Screen Negative Alcohol, Quantitative 11/06/16 11/06/16 07:00 07:00 WBC Hgb Plt Count INR PTT (Actin FS) Sodium 140 Potassium 4.8 Chloride 109 H Carbon Dioxide 26 Anion Gap 5 L BUN 48 H D Creatinine Ammonia 192.06 H Urine Protein Urine Blood Opiates Screen Methadone Screen Barbiturate Screen Phencyclidine Screen Ur Amphetamines Screen MDMA (Ecstasy) Screen Benzodiazepines Screen Cocaine Screen U Marijuana (THC) Screen Alcohol, Quantitative Imaging - Results Chest X-ray: Report Reviewed (right pleural effusion) Cat Scan: Report Reviewed (ct head reviewed) Problem List - Problems (1) Cirrhosis of liver Code(s): K74.60 - UNSPECIFIED CIRRHOSIS OF LIVER Qualifiers: (2) Sedative dependence Code(s): F13.20 - SEDATIVE, HYPNOTIC OR ANXIOLYTIC DEPENDENCE, UNCOMPLICATED (3) Altered mental status Code(s): R41.82 - ALTERED MENTAL STATUS, UNSPECIFIED Qualifiers: Altered mental status type: disorientation Qualified Code(s): R41.0 - Disorientation, unspecified (4) Ascites Code(s): R18.8 - OTHER ASCITES Qualifiers: Ascites type: due to alcoholic cirrhosis Qualified Code(s): K70.31 - Alcoholic cirrhosis of liver with ascites (5) CVA (cerebral vascular accident) Code(s): I63.9 - CEREBRAL INFARCTION, UNSPECIFIED (6) Edema Code(s): R60.9 - EDEMA, UNSPECIFIED Qualifiers: Edema type: unspecified Qualified Code(s): R60.9 - Edema, unspecified (7) CKD (chronic kidney disease) Code(s): N18.9 - CHRONIC KIDNEY DISEASE, UNSPECIFIED Assessment/Plan Current Medications Generic Name Dose Route Start Last Admin Trade Name Freq PRN Reason Stop Dose Admin Albuterol/Ipratropium 1 amp 11/05/16 18:41 Duoneb - NEB Q4H PRN SHORTNESS OF BREATH Furosemide 40 mg 11/06/16 10:00 11/06/16 10:08 Lasix - PO 40 mg DAILY JADEN Administration Insulin Aspart 1 vial 11/05/16 22:00 01/13/17 16:39 Novolog Vial Sliding Scale - SQ 6 unit ACHS JADEN Administration Protocol Insulin Detemir 20 units 11/05/16 22:00 11/05/16 21:42 Levemir Vial SQ 20 unit HS JADEN Administration Lactulose 30 gm 11/06/16 11:00 11/06/16 18:15 Cephulac (Oral Use) PO 30 gm QID JADEN Administration Methadone HCl 10 mg/ Methadone 15 mg 11/06/16 12:00 11/06/16 12:06 HCl 5 mg PO 15 mg DAILY@0600 JADEN Administration Nadolol 20 mg 11/06/16 10:00 11/06/16 10:08 Corgard - PO 20 mg DAILY JADEN Administration Pantoprazole Sodium 40 mg 11/06/16 10:00 11/06/16 10:08 Protonix - PO 40 mg DAILY JADEN Administration Rifaximin 550 mg 11/05/16 22:00 11/06/16 10:08 Xifaxan - PO 550 mg BID JADEN Administration Zinc Sulfate 220 mg 11/06/16 10:00 11/06/16 10:08 Orazinc - PO 220 mg DAILY JADEN Administration Impression 1. CKD 2. hyperkalemia 3. hep C 4. liver cirrhosis 5. DM 6. ascites 7. methadone dependence 8. anxiety 9. hx lymphoma 10. thrombocytopenia 11. altered mental status 12. COPD 13. CAD Plan - potassium is stablilized - would keep spironolactone on hold for now - can increase lasix to BID dosing - repeat labs in am - mental status is improving - check ua - will need outpt follow up - discussed with cardio - will follow Dr Vu
--- NOTE | 2016-11-06 19:31 | CONS ---
DATE OF CONSULTATION: 11/06/2016 HISTORY OF PRESENT ILLNESS: This is a 56-year-old who presented with confusion. He is well-known to me. He has had multiple admissions to [facility]. He has multiple medical issues. He has a history of polysubstance abuse and IV drug abuse on maintenance methadone. He has a history of hepatitis C with cirrhosis, endstage liver disease with portal hypertension, esophageal varices, hypersplenism with pancytopenia. He has a bone marrow which reveals low grade B-cell lymphoma. He has a history of coronary artery disease with history of MIs, stents, pacemaker. He has a history of COPD, insulin-dependent diabetes, multiple thoracenteses, multiple paracenteses, history of chest tube and chronic right pleural effusion. He has a history of severe GI bleeding secondary to varices. He has a history of portal hypertension. He has a coagulopathy with elevation of INR. CURRENT MEDICATIONS: Include albuterol, Lasix 40 daily, insulin, lactulose, methadone, Nadolol 20 a day, Protonix 40 a day, rifaximin 550 b.i.d. and zinc. REVIEW OF SYSTEMS: Currently, the patient is somewhat lethargic. He is able to answer questions. He complains of pain. He has no shortness of breath. He has no nausea or vomiting. He has no chest pain. He has no headaches. He has no diplopia. He has no jaundice. He has no dysuria. He has some dyspnea on exertion. CURRENT PHYSICAL EXAMINATION: Vital Signs: Blood pressure 124/74, afebrile, pulse 66, respiratory rate 18. HEENT: No icterus. Upper bite plate, edentulous lower. Decreased papillation of the tongue. Lungs: Decreased breath sounds, right lower lobe. Scattered wheezes. Cardiac: RSR. Abdomen: Ascites, umbilical hernia. No masses. Lower Extremities: Stasis. LABORATORY DATA: WBC 2.9, hematocrit 26, platelets 26 with 71 polys, 15 lymphocytes, 10 monocytes. INR is 1.59. Chemistry is 140 sodium, potassium 4.8, chloride 109, CO2 26, BUN 48, creatinine 1.5. Glucose 204. OT 53, PT 36, alkaline phosphatase 255. Ammonia 192. Protein 2.2. IMPRESSION: A 56-year-old with multiple medical problems. From a hematology point of view, pancytopenia secondary to cirrhosis with hepatitis C, splenomegaly with portal hypertension. Gastric and esophageal varices. Current confusion related to hepatic encephalopathy being treated with lactulose. In absence of active bleeding, no intervention hematologically required, as the patient has chronic pancytopenia. Would try and maintain hematocrit above 25%. Chronic thrombocytopenia has not been previously responded to steroids or platelet infusion. WALT YOON M.D. HERNÁN/[id number] MTDD
[2016-11-06] MEDS: INSULIN DETEMIR 100 UNITS/ML MDV SQ SCH (23:41)
--- NOTE | 2016-11-07 01:58 | CONSULT ---
Consult Consult Specialty:: endocrine Referred by:: dr.saba gautam Reason for Consultation:: iddm and altered mental state - History of Present Illness Chief Complaint: confused History of Present Illness: 56 year old male with pmhx of CAD, HTN, a-fib, liver cirrhosis, subarachnoid hemmorrhage, DM, COPD, hep C, CKD and b-cell lymphoma who presents to the ER with increased confusion. He was found to have elevated ammonia. He is on a methadone program. has difficulty remembering when he last took insulin or how his sugar are managed. 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 (hepatic encephalopathy-currently more alert) Cardio/Vascular: Yes: CAD (reported prior MIs -> stents x4 at [facility] in 1998), HTN , Other (PPM palcement at time of [place] in 1998, abnl EKG witth old inferior AL) Pulmonary: Yes: COPD, Other (PLEURAL EFFUSION WITH PREVIOUS TAPS) Gastrointestinal: Yes: Ascites, Diverticulitis, Esophageal Varices (This patient does NOT have varices), GI Bleed (s/p multiple blood transfusions), Other (gastri varices / ) Hepatobiliary: Yes: Cirrhosis (ESLD), Hepatitis C, Other (PORTAL HYPERTENSION) Renal/: Yes: Renal Inusuff (CKD (baseline 0.9-1.1)) Psych: Yes: Addictions (hx of polysubstance abuse & IVDA on maintenance Methadone), Anxiety Endocrine: Yes: Diabetes Mellitus (insulin-dependent) - Past Surgical History Past Surgical History: Yes: Permanent Pacemaker, Stent (x4), Upper Endoscopy ( with gastric varices/sclerotherapy) - Alcohol/Substance Use Hx Alcohol Use: No History of Substance Use: reports: Heroin (on methadone) - Smoking History Smoking history: Current some day smoker Have you smoked in the past 12 months: No Aproximately how many cigarettes per day: 5 - Social History Usual Living Arrangement: Other ( from . The youngest of his 3 children lives with him) ADL: Independent Occupation: not employed History of Recent Travel: No Home Medications - Allergies Allergies/Adverse Reactions: Allergies Allergy/AdvReac Type Severity Reaction Status Date / Time nalbuphine HCl [From Nubain] Allergy Verified 11/05/16 09:34 octreotide AdvReac Verified 11/05/16 09:34 - Home Medications Home Medications: Ambulatory Orders Albuterol 2.5/Ipratropium 0.5 [Duoneb -] 1 amp NEB Q6H PRN #120 amp 10/25/16 Furosemide [Lasix -] 40 mg PO DAILY #30 tablet 10/25/16 Lactulose (Oral Use) [Cephulac -] 20 gm PO QID PRN #240 grams 10/25/16 Pantoprazole Sodium [Protonix -] 40 mg PO DAILY #30 tablet.ec 10/25/16 Rifaximin [Xifaxan -] 550 mg PO BID #60 tablet 10/25/16 Spironolactone [Aldactone -] 100 mg PO DAILY #30 tablet 10/25/16 Insulin (Levemir) [Levemir Vial] 30 units SQ HS 11/05/16 Methadone [Dolophine -] 10 mg PO DAILY 11/05/16 Family Disease History - Family Disease History Family Disease History: Heart Disease: Father (OPEN HEART SX,), CA: Mother (BREAST CANCER,) Review of Systems - Review of Systems Constitutional: reports: Lethargy, Weakness Eyes: reports: Blurred Vision HENT: reports: Throat Pain Neck: reports: Decreased ROM Cardiovascular: reports: Shortness of Breath Respiratory: reports: Exercise Intolerance Gastrointestinal: reports: Abdominal Pain, Bloating, Indigestion Genitourinary: reports: Flank Pain Breasts: reports: No Symptoms Reported Musculoskeletal: reports: Back Pain, Extremity Pain, Joint Swelling, Muscle Pain , Muscle Cramps Integumentary: reports: No Symptoms Neurological: reports: Parasthesia, Tremors, Weakness Endocrine: reports: Unexplained Weight Gain Psychiatric: reports: Altered Sleep Pattern, Hallucinations Physical Exam Vital Signs: Vital Signs Temperature 98.9 F 11/06/16 16:56 Pulse Rate 86 11/06/16 16:56 Respiratory Rate 20 11/06/16 16:56 Blood Pressure 123/80 11/06/16 16:56 O2 Sat by Pulse Oximetry (%) 96 11/06/16 09:00 Constitutional: Yes: Anxious Eyes: Yes: EOM Intact HENT: Yes: Normocephalic Neck: Yes: Trachea Midline Cardiovascular: Yes: Regular Rate and Rhythm Respiratory: Yes: CTA Bilaterally Gastrointestinal: Yes: Normal Bowel Sounds ...Rectal Exam: Yes: Deferred Renal/: Yes: WNL Breast(s): Yes: WNL Musculoskeletal: Yes: Joint Swelling, Muscle Pain, Muscle Weakness Extremities: Yes: Delayed Capillary Refill Edema: Yes Peripheral Pulses WNL: Yes Neurological: Yes: Confusion, Weakness Labs: CBC, BMP 11/06/16 07:00 11/06/16 07:00 Problem List - Problems (1) CKD (chronic kidney disease) Code(s): N18.9 - CHRONIC KIDNEY DISEASE, UNSPECIFIED Qualifiers: Chronic kidney disease stage: stage 2 (mild) Qualified Code(s): N18.2 - Chronic kidney disease, stage 2 (mild) (2) Cirrhosis of liver Code(s): K74.60 - UNSPECIFIED CIRRHOSIS OF LIVER Qualifiers: (3) Hepatorenal syndrome Code(s): K76.7 - HEPATORENAL SYNDROME (4) Type 1 diabetes mellitus with diabetic nephropathy Code(s): E10.21 - TYPE 1 DIABETES MELLITUS WITH DIABETIC NEPHROPATHY Assessment/Plan iddm neuropathy ckd Current Active Problems Acute renal failure (Acute) CKD (chronic kidney disease) (Acute) Cirrhosis of liver (Acute) Hepatorenal syndrome (Acute) Type 1 diabetes mellitus with diabetic nephropathy (Acute) Abnormal Lab Results 11/06/16 11/06/16 11/06/16 07:00 07:00 07:00 WBC 2.9 L D RBC 2.72 L Hgb 9.3 L Hct 26.7 L MCV 97.9 H RDW 16.2 H Plt Count 26 L* INR 1.59 H Chloride 109 H Anion Gap 5 L BUN 48 H D Creatinine 1.5 H D Random Glucose 204 H D Calcium 8.0 L AST 53 H Alkaline Phosphatase 255 H Ammonia Albumin 2.2 L 11/06/16 07:00 WBC RBC Hgb Hct MCV RDW Plt Count INR Chloride Anion Gap BUN Creatinine Random Glucose Calcium AST Alkaline Phosphatase Ammonia 192.06 H Albumin Laboratory Tests 11/06/16 11/06/16 11/06/16 07:00 07:00 11:39 Sodium 140 Potassium 4.8 Chloride 109 H Carbon Dioxide 26 Anion Gap 5 L BUN 48 H D Creatinine 1.5 H D Creat Clearance w eGFR 48.41 POC Glucometer 186 Ammonia 192.06 H 11/06/16 11/06/16 16:38 23:39 Sodium Potassium Chloride Carbon Dioxide Anion Gap BUN Creatinine Creat Clearance w eGFR POC Glucometer 262 233 Ammonia plan : bgm novolog insulin sliding scale levemir 20 units hs ck hb a1c
[2016-11-07] MEDS ORDERED: METHADONE HCL 10 MG TABLET ONE (05:25)
[2016-11-07] MEDS ORDERED: METHADONE HCL 5 MG TABLET ONE (05:25)
[2016-11-07] MEDS: METHADONE 10 MG, METHADONE 5 MG PO SCH (05:49)
[2016-11-07] MEDS: FUROSEMIDE 40 MG TABLET (FP) PO SCH ×2 (05:50→13:36)
[2016-11-07] MEDS: INSULIN SLIDING SCALE (NOVOLOG) 1 VIAL SQ SCH ×4 (06:20→23:02)
[2016-11-07] MEDS ORDERED: PT OWN MED DRAWER 7, Y5N ONE (09:32)
[2016-11-07] MEDS: NADOLOL 20 MG TABLET (FP) PO SCH (09:37)
[2016-11-07] MEDS: LACTULOSE 20 GM/30 ML UDC (FOR ORAL USE ONLY) PO SCH ×4 (09:37→21:41)
[2016-11-07] MEDS: ZINC SULFATE 220 MG CAPSULE (FP) PO SCH (09:37)
[2016-11-07] MEDS: RIFAXIMIN 550 MG TABLET (UD) PO SCH ×2 (09:38→21:42)
[2016-11-07] MEDS: PANTOPRAZOLE 40 MG TABLET (FP) PO SCH (09:38)
[2016-11-07 09:43] LABS: CALCIUM 7.9 mg/dL (8.5-10.1); CREATININE 1.4 mg/dL (0.7-1.3); MAGNESIUM 1.8 mg/dL (1.8-2.4)
[2016-11-07 09:47] LABS: TROPONIN I 0.05 ng/ml (0.00-0.05)
--- NOTE | 2016-11-07 09:50 | PN ---
Progress Note, Physician History of Present Illness: awake no new complaints - Current Medication List Current Medications: Active Medications Albuterol/Ipratropium (Duoneb -) 1 amp NEB Q4H PRN PRN Reason: SHORTNESS OF BREATH Furosemide (Lasix -) 40 mg PO BID@0600,1400 [facility] Last Admin: 11/07/16 05:50 Dose: 40 mg Insulin Aspart (Novolog Vial Sliding Scale -) 1 vial SQ ACHS [facility] PRN Reason: Protocol Last Admin: 11/07/16 06:20 Dose: Not Given Insulin Detemir (Levemir Vial) 20 units SQ HS [facility] Last Admin: 11/06/16 23:41 Dose: 20 unit Lactulose (Cephulac (Oral Use)) 30 gm PO QID [facility] Last Admin: 11/07/16 09:37 Dose: 30 gm Methadone HCl 10 mg/ Methadone (HCl 5 mg) 15 mg PO DAILY@0600 [facility] Last Admin: 11/07/16 05:49 Dose: 15 mg Nadolol (Corgard -) 20 mg PO DAILY [facility] Last Admin: 11/07/16 09:37 Dose: 20 mg Pantoprazole Sodium (Protonix -) 40 mg PO DAILY [facility] Last Admin: 11/07/16 09:38 Dose: 40 mg Rifaximin (Xifaxan -) 550 mg PO BID [facility] Last Admin: 11/07/16 09:38 Dose: 550 mg Zinc Sulfate (Orazinc -) 220 mg PO DAILY [facility] Last Admin: 11/07/16 09:37 Dose: 220 mg - Objective Vital Signs: Vital Signs Temperature 98.4 F 11/07/16 06:00 Pulse Rate 66 11/07/16 06:00 Respiratory Rate 20 11/07/16 06:00 Blood Pressure 135/78 11/07/16 06:00 O2 Sat by Pulse Oximetry (%) 96 11/06/16 21:00 Cardiovascular: Yes: Regular Rate and Rhythm Respiratory: Yes: Regular, CTA Bilaterally Gastrointestinal: Yes: Normal Bowel Sounds, Soft Labs: CBC, BMP 11/06/16 07:00 INR, PTT INR 1.59 (0.82-1.09) H 11/06/16 07:00 Problem List - Problems (1) Hepatic encephalopathy Assessment/Plan: LACTULOSE GI Code(s): K72.90 - HEPATIC FAILURE, UNSPECIFIED WITHOUT COMA (2) Cirrhosis of liver Assessment/Plan: ABOVE Code(s): K74.60 - UNSPECIFIED CIRRHOSIS OF LIVER Qualifiers: (3) Diabetes mellitus, insulin dependent (IDDM), uncontrolled Assessment/Plan: BGM Code(s): E10.65 - TYPE 1 DIABETES MELLITUS WITH HYPERGLYCEMIA Qualifiers: Chronic kidney disease stage: stage 3 (moderate) (4) Lymphoma Code(s): C85.90 - NON-HODGKIN LYMPHOMA, UNSPECIFIED, UNSPECIFIED SITE (5) METHADONE MAINTENANCE Assessment/Plan: on methadone
[2016-11-07 10:01] LABS: URINE APPEARANCE CLEAR; URINE BILIRUBIN NEGATIVE (NEGATIVE); URINE COLOR LTYELLOW; URINE GLUCOSE (UA) NEGATIVE (NEGATIVE); URINE KETONE NEGATIVE (NEGATIVE); URINE NITRITE NEGATIVE (NEGATIVE); URINE PROTEIN NEGATIVE (NEGATIVE); URINE UROBILINOGEN NEGATIVE E.U./dl (0.2-1.0)
[2016-11-07 10:04] LABS: URINE BLOOD 2+ (NEGATIVE); URINE LEUK ESTERASE TRACE (NEGATIVE)
[2016-11-07 10:06] LABS: URINE RBC 1 /hpf (0-3); URINE WBC 7 /hpf (3-5)
--- NOTE | 2016-11-07 10:54 | PN ---
Progress Note (short form) - Note Progress Note: Patient seen in follow up. No new complaints. No events overnight. Medications reviewed. Current Medications Generic Name Dose Route Start Last Admin Trade Name Freq PRN Reason Stop Dose Admin Albuterol/Ipratropium 1 amp 11/05/16 18:41 Duoneb - NEB Q4H PRN SHORTNESS OF BREATH Furosemide 40 mg 11/07/16 06:00 11/07/16 05:50 Lasix - PO 40 mg BID@0600,1400 [facility] Administration Insulin Aspart 1 vial 11/05/16 22:00 11/07/16 06:20 Novolog Vial Sliding Scale - SQ Not Given ACHS [facility] Protocol Insulin Detemir 20 units 11/05/16 22:00 11/06/16 23:41 Levemir Vial SQ 20 unit HS [facility] Administration Lactulose 30 gm 11/06/16 11:00 11/07/16 09:37 Cephulac (Oral Use) PO 30 gm QID [facility] Administration Methadone HCl 10 mg/ Methadone 15 mg 11/06/16 12:00 11/07/16 05:49 HCl 5 mg PO 15 mg DAILY@0600 [facility] Administration Nadolol 20 mg 11/06/16 10:00 11/07/16 09:37 Corgard - PO 20 mg DAILY [facility] Administration Pantoprazole Sodium 40 mg 11/06/16 10:00 11/07/16 09:38 Protonix - PO 40 mg DAILY [facility] Administration Rifaximin 550 mg 11/05/16 22:00 11/07/16 09:38 Xifaxan - PO 550 mg BID [facility] Administration Zinc Sulfate 220 mg 11/06/16 10:00 11/07/16 09:37 Orazinc - PO 220 mg DAILY [facility] Administration On exam: Last Vital Signs Temp Pulse Resp BP Pulse Ox 98.4 F 66 20 135/78 96 11/07/16 06:00 11/07/16 06:00 11/07/16 06:00 11/07/16 06:00 11/06/16 21:00 Drowsy but rousable, and co-operative. Well hydrated. Chest: clear Abdomen: Soft, distended, sone shifting dullness and umbilical hernia. CVS: S1, S2, no gallop or murmur. Skin: No angiomata. No petechiae or ecchymoses Neuro: Alert, with some confusion. Non-focal. No asterixis. Assessment: Well-known to hematology - Hep C with cirrhosis and liver decompensation, presently with mild encephalopathy. Chronic severe thrombocytopenia, with counts usually 25-50K. Mild anemia, at baseline. Mild coagulopathy - baseline INR circa 1.5. No suggestion of hemorrhage at this time, but certainly at risk. Requires close observation. If any concern for bleeding then would recommend platelet transfusion (albeit noting prior transfusion refractoriness) with target platelet count 50K). Will follow.
--- NOTE | 2016-11-07 15:21 | PN ---
Progress Note, Physician History of Present Illness: Pt seen and examined at bedside. He is awake and more alert. He is asking to go home. - Current Medication List Current Medications: Active Medications Albuterol/Ipratropium (Duoneb -) 1 amp NEB Q4H PRN PRN Reason: SHORTNESS OF BREATH Furosemide (Lasix -) 40 mg PO BID@0600,1400 [facility] Last Admin: 11/07/16 13:36 Dose: 40 mg Insulin Aspart (Novolog Vial Sliding Scale -) 1 vial SQ ACHS [facility] PRN Reason: Protocol Last Admin: 11/07/16 13:12 Dose: Not Given Insulin Detemir (Levemir Vial) 20 units SQ HS [facility] Last Admin: 11/06/16 23:41 Dose: 20 unit Lactulose (Cephulac (Oral Use)) 30 gm PO QID [facility] Last Admin: 11/07/16 13:36 Dose: 30 gm Lactulose (Cephulac (Rectal Use)) 200 gm WA TID [facility] Methadone HCl 10 mg/ Methadone (HCl 5 mg) 15 mg PO DAILY@0600 [facility] Last Admin: 11/07/16 05:49 Dose: 15 mg Nadolol (Corgard -) 20 mg PO DAILY [facility] Last Admin: 11/07/16 09:37 Dose: 20 mg Pantoprazole Sodium (Protonix -) 40 mg PO DAILY [facility] Last Admin: 11/07/16 09:38 Dose: 40 mg Rifaximin (Xifaxan -) 550 mg PO BID [facility] Last Admin: 11/07/16 09:38 Dose: 550 mg Zinc Sulfate (Orazinc -) 220 mg PO DAILY [facility] Last Admin: 11/07/16 09:37 Dose: 220 mg - Objective Vital Signs: Vital Signs Temperature 98.2 F 11/07/16 10:00 Pulse Rate 69 11/07/16 10:00 Respiratory Rate 18 11/07/16 10:00 Blood Pressure 127/79 11/07/16 10:00 O2 Sat by Pulse Oximetry (%) 96 11/07/16 09:00 Constitutional: Yes: Calm Eyes: Yes: Conjunctiva Clear HENT: Yes: Atraumatic Neck: Yes: Supple Cardiovascular: Yes: S1, S2 Respiratory: Yes: CTA Bilaterally Gastrointestinal: Yes: Soft, Ascites Extremities: Yes: WNL Edema: Yes Edema: LLE: 1+, RLE: 1+ Neurological: Yes: Oriented Psychiatric: Yes: Oriented Labs: CBC, BMP 11/06/16 07:00 11/07/16 07:15 INR, PTT INR 1.59 (0.82-1.09) H 11/06/16 07:00 Problem List - Problems (1) Cirrhosis of liver Code(s): K74.60 - UNSPECIFIED CIRRHOSIS OF LIVER Qualifiers: (2) Sedative dependence Code(s): F13.20 - SEDATIVE, HYPNOTIC OR ANXIOLYTIC DEPENDENCE, UNCOMPLICATED (3) Altered mental status Code(s): R41.82 - ALTERED MENTAL STATUS, UNSPECIFIED Qualifiers: Altered mental status type: disorientation Qualified Code(s): R41.0 - Disorientation, unspecified (4) Ascites Code(s): R18.8 - OTHER ASCITES Qualifiers: Ascites type: due to alcoholic cirrhosis Qualified Code(s): K70.31 - Alcoholic cirrhosis of liver with ascites (5) CVA (cerebral vascular accident) Code(s): I63.9 - CEREBRAL INFARCTION, UNSPECIFIED (6) Edema Code(s): R60.9 - EDEMA, UNSPECIFIED Qualifiers: Edema type: unspecified Qualified Code(s): R60.9 - Edema, unspecified (7) CKD (chronic kidney disease) Code(s): N18.9 - CHRONIC KIDNEY DISEASE, UNSPECIFIED Qualifiers: Chronic kidney disease stage: stage 2 (mild) Qualified Code(s): N18.2 - Chronic kidney disease, stage 2 (mild) Assessment/Plan Current Medications Generic Name Dose Route Start Last Admin Trade Name Freq PRN Reason Stop Dose Admin Albuterol/Ipratropium 1 amp 11/05/16 18:41 Duoneb - NEB Q4H PRN SHORTNESS OF BREATH Furosemide 40 mg 11/07/16 06:00 11/07/16 13:36 Lasix - PO 40 mg BID@0600,1400 [facility] Administration Insulin Aspart 1 vial 11/05/16 22:00 11/07/16 13:12 Novolog Vial Sliding Scale - SQ Not Given ACHS [facility] Protocol Insulin Detemir 20 units 11/05/16 22:00 11/06/16 23:41 Levemir Vial SQ 20 unit HS [facility] Administration Lactulose 30 gm 11/06/16 11:00 11/07/16 13:36 Cephulac (Oral Use) PO 30 gm QID [facility] Administration Lactulose 200 gm 11/07/16 14:15 Cephulac (Rectal Use) WA TID [facility] Methadone HCl 10 mg/ Methadone 15 mg 11/06/16 12:00 11/07/16 05:49 HCl 5 mg PO 15 mg DAILY@0600 [facility] Administration Nadolol 20 mg 11/06/16 10:00 11/07/16 09:37 Corgard - PO 20 mg DAILY [facility] Administration Pantoprazole Sodium 40 mg 11/06/16 10:00 11/07/16 09:38 Protonix - PO 40 mg DAILY [facility] Administration Rifaximin 550 mg 11/05/16 22:00 11/07/16 09:38 Xifaxan - PO 550 mg BID [facility] Administration Zinc Sulfate 220 mg 11/06/16 10:00 11/07/16 09:37 Orazinc - PO 220 mg DAILY [facility] Administration Impression 1. CKD 2. hyperkalemia 3. hep C 4. liver cirrhosis 5. DM 6. ascites 7. methadone dependence 8. anxiety 9. hx lymphoma 10. thrombocytopenia 11. altered mental status 12. COPD 13. CAD Plan - potassium is improved - can restart spironolactone - repeat labs in am - mental status is improving - check ua - will need outpt follow up - will follow Dr Vu
--- NOTE | 2016-11-07 16:09 | CONSULT ---
Consult Consult Specialty:: GI Referred by:: Dr Thompson Reason for Consultation:: encephalopathy - History of Present Illness Chief Complaint: "dizziness" History of Present Illness: 56 M with h/o ESLD with portal HTN and gastric varices, CAD, HTN, AF, DM, COPD, Hep C, low-grade B-cell lymphoma, with several admissions for hepatic encephalopathy, now back with same. On admission, NH4 was 111. Went to 65 with lactuloses but now 192. Nurse states he is receiving lactulose po and has been having diarrhea. His MS at this time is at his baseline. - History Source History Provided By: Medical Record Limitations to Obtaining History: Clinical Condition - Past Medical History [employer] FORMER: Yes: Other (hepatic encephalopathy-currently more alert) Cardio/Vascular: Yes: CAD (reported prior MIs -> stents x4 at [facility] in 1998), HTN , Other (PPM palcement at time of AL in 1998, abnl EKG witth old inferior AL) Pulmonary: Yes: COPD, Other (PLEURAL EFFUSION WITH PREVIOUS TAPS) Gastrointestinal: Yes: Ascites, Diverticulitis, Esophageal Varices (This patient does NOT have varices), GI Bleed (s/p multiple blood transfusions), Other (gastri varices / ) Hepatobiliary: Yes: Cirrhosis (ESLD), Hepatitis C, Other (PORTAL HYPERTENSION) Renal/: Yes: Renal Inusuff (CKD (baseline 0.9-1.1)) Psych: Yes: Addictions (hx of polysubstance abuse & IVDA on maintenance Methadone), Anxiety Endocrine: Yes: Diabetes Mellitus (insulin-dependent) - Past Surgical History Past Surgical History: Yes: Permanent Pacemaker, Stent (x4), Upper Endoscopy ( with gastric varices/sclerotherapy) - Alcohol/Substance Use Hx Alcohol Use: No History of Substance Use: reports: Heroin (on methadone) - Smoking History Smoking history: Current some day smoker Have you smoked in the past 12 months: No Aproximately how many cigarettes per day: 5 - Social History Usual Living Arrangement: Other ( from . The youngest of his 3 children lives with him) ADL: Independent Occupation: not employed History of Recent Travel: No Home Medications - Allergies Allergies/Adverse Reactions: Allergies Allergy/AdvReac Type Severity Reaction Status Date / Time nalbuphine HCl [From Nubain] Allergy Verified 11/05/16 09:34 octreotide AdvReac Verified 11/05/16 09:34 - Home Medications Home Medications: Ambulatory Orders Albuterol 2.5/Ipratropium 0.5 [Duoneb -] 1 amp NEB Q6H PRN #120 amp 10/25/16 Furosemide [Lasix -] 40 mg PO DAILY #30 tablet 10/25/16 Lactulose (Oral Use) [Cephulac -] 20 gm PO QID PRN #240 grams 10/25/16 Pantoprazole Sodium [Protonix -] 40 mg PO DAILY #30 tablet.ec 10/25/16 Rifaximin [Xifaxan -] 550 mg PO BID #60 tablet 10/25/16 Spironolactone [Aldactone -] 100 mg PO DAILY #30 tablet 10/25/16 Insulin (Levemir) [Levemir Vial] 30 units SQ HS 11/05/16 Methadone [Dolophine -] 10 mg PO DAILY 11/05/16 Family Disease History - Family Disease History Family Disease History: Heart Disease: Father (OPEN HEART SX,), CA: Mother (BREAST CANCER,) Physical Exam-GI Vital Signs: Vital Signs Temperature 98.2 F 11/07/16 14:31 Pulse Rate 64 11/07/16 14:31 Respiratory Rate 18 11/07/16 14:31 Blood Pressure 125/78 11/07/16 14:31 O2 Sat by Pulse Oximetry (%) 96 11/07/16 09:00 Constitutional: Yes: Calm HENT: Yes: Normocephalic Neck: Yes: Supple Cardiovascular: Yes: Regular Rate and Rhythm Respiratory: Yes: CTA Bilaterally Gastrointestinal Inspection: Yes: WNL ...Auscultate: Yes: Normoactive Bowel Sounds ...Palpate: Yes: Soft Neurological: Yes: Confusion ((mild)) Labs: CBC, BMP 11/06/16 07:00 11/07/16 07:15 INR, PTT INR 1.59 (0.82-1.09) H 11/06/16 07:00 Hepatic Panel Total Bilirubin 0.9 mg/dL (0.2-1.0) 11/06/16 07:00 AST 53 U/L (15-37) H 11/06/16 07:00 ALT 36 U/L (12-78) 11/06/16 07:00 Alkaline Phosphatase 255 U/L (45-117) H 11/06/16 07:00 Albumin 2.2 g/dl (3.4-5.0) L 11/06/16 07:00 Abnormal Lab Results 11/07/16 11/07/16 07:15 08:35 Sodium 134 L Chloride 113 H Anion Gap -6 L BUN 37 H D Creatinine 1.4 H Calcium 7.9 L Urine Blood 2+ H Ur Leukocyte Esterase Trace H D Assessment/Plan Multiple recent admissions for this issue in the recent past suggest medication non-compliance. Will re-check NH4 level, obtain RUQ U/S to re-evaluate liver, and check AFP as he is at risk for developing HCC Explore options for extended home care vs NH placement.
[2016-11-07] MEDS: LACTULOSE 20 GM/30 ML UDC (FOR RECTAL USE ONLY) PR SCH ×2 (17:05→23:02)
[2016-11-07 19:20] LABS: THYROID STIMULATING HORMONE 0.53 uIU/ml (0.358-3.74)
[2016-11-07] MEDS: INSULIN DETEMIR 100 UNITS/ML MDV SQ SCH (23:02)
[2016-11-08] MEDS ORDERED: METHADONE HCL 5 MG TABLET ONE (05:34)
[2016-11-08] MEDS ORDERED: METHADONE HCL 10 MG TABLET ONE (05:34)
[2016-11-08] MEDS: METHADONE 10 MG, METHADONE 5 MG PO SCH (05:52)
[2016-11-08] MEDS: LACTULOSE 20 GM/30 ML UDC (FOR RECTAL USE ONLY) PR SCH ×2 (05:53→14:14)
[2016-11-08] MEDS: INSULIN SLIDING SCALE (NOVOLOG) 1 VIAL SQ SCH ×2 (07:14→13:01)
[2016-11-08 08:34] LABS: BASOPHIL 0.7 % (0-2.0); EOSINOPHIL 4.5 % (0-4.5); MCH 33.9 pg (25.7-33.7); MCHC 34.6 g/dl (32.0-35.9); MEAN PLT VOLUME 10.6 fl (7.5-11.1); NEUTROPHILS 57.2 % (42.8-82.8); RDW 15.7 % (11.9-15.9); WHITE BLOOD COUNT 3.9 K/mm3 (4.0-10.0)
[2016-11-08 08:47] LABS: PLATELET COUNT 34 K/MM3 (134-434)
[2016-11-08 09:17] LABS: ALBUMIN 2.3 g/dl (3.4-5.0); CALCIUM 8.1 mg/dL (8.5-10.1); CREATININE 1.6 mg/dL (0.7-1.3)
[2016-11-08 09:20] LABS: BILIRUBIN,TOTAL 1.3 mg/dL (0.2-1.0); TOT PROT 8.5 g/dl (6.4-8.2)
[2016-11-08] MEDS ORDERED: FUROSEMIDE 40 MG TABLET (FP) PO SCH (10:00)
[2016-11-08] MEDS ORDERED: SPIRONOLACTONE 25 MG TABLET (FP) PO SCH (10:00)
[2016-11-08] MEDS: RIFAXIMIN 550 MG TABLET (UD) PO SCH (10:12)
[2016-11-08] MEDS: NADOLOL 20 MG TABLET (FP) PO SCH (10:12)
[2016-11-08] MEDS: ZINC SULFATE 220 MG CAPSULE (FP) PO SCH (10:12)
[2016-11-08] MEDS: PANTOPRAZOLE 40 MG TABLET (FP) PO SCH (10:12)
[2016-11-08] MEDS: LACTULOSE 20 GM/30 ML UDC (FOR ORAL USE ONLY) PO SCH ×2 (10:13→14:12)
--- NOTE | 2016-11-08 11:35 | PN ---
Progress Note, Physician History of Present Illness: awake no new complaints - Current Medication List Current Medications: Active Medications Albuterol/Ipratropium (Duoneb -) 1 amp NEB Q4H PRN PRN Reason: SHORTNESS OF BREATH Furosemide (Lasix -) 40 mg PO DAILY [facility] Last Admin: 11/08/16 10:12 Dose: 40 mg Insulin Aspart (Novolog Vial Sliding Scale -) 1 vial SQ ACHS [facility] PRN Reason: Protocol Last Admin: 11/08/16 07:14 Dose: 2 units Insulin Detemir (Levemir Vial) 20 units SQ HS [facility] Last Admin: 11/07/16 23:02 Dose: 20 unit Lactulose (Cephulac (Oral Use)) 30 gm PO QID [facility] Last Admin: 11/08/16 10:13 Dose: Not Given Lactulose (Cephulac (Rectal Use)) 200 gm MD TID [facility] Last Admin: 11/08/16 05:53 Dose: 200 gm Methadone HCl 10 mg/ Methadone (HCl 5 mg) 15 mg PO DAILY@0600 [facility] Last Admin: 11/08/16 05:52 Dose: 15 mg Nadolol (Corgard -) 20 mg PO DAILY [facility] Last Admin: 11/08/16 10:12 Dose: 20 mg Pantoprazole Sodium (Protonix -) 40 mg PO DAILY [facility] Last Admin: 11/08/16 10:12 Dose: 40 mg Rifaximin (Xifaxan -) 550 mg PO BID [facility] Last Admin: 11/08/16 10:12 Dose: 550 mg Spironolactone (Aldactone -) 50 mg PO DAILY [facility] Last Admin: 11/08/16 10:12 Dose: 50 mg Zinc Sulfate (Orazinc -) 220 mg PO DAILY [facility] Last Admin: 11/08/16 10:12 Dose: 220 mg - Objective Vital Signs: Vital Signs Temperature 99.4 F 11/08/16 06:00 Pulse Rate 68 11/08/16 06:00 Respiratory Rate 20 11/08/16 06:00 Blood Pressure 128/77 11/08/16 06:00 O2 Sat by Pulse Oximetry (%) 95 11/07/16 21:00 Cardiovascular: Yes: Regular Rate and Rhythm Respiratory: Yes: Regular, CTA Bilaterally Gastrointestinal: Yes: Normal Bowel Sounds, Soft. No: Tenderness Labs: CBC, BMP 11/08/16 07:00 11/08/16 07:00 INR, PTT INR 1.59 (0.82-1.09) H 11/06/16 07:00 Problem List - Problems (1) Hepatic encephalopathy Assessment/Plan: LACTULOSE GI Code(s): K72.90 - HEPATIC FAILURE, UNSPECIFIED WITHOUT COMA (2) Cirrhosis of liver Assessment/Plan: ABOVE Code(s): K74.60 - UNSPECIFIED CIRRHOSIS OF LIVER Qualifiers: (3) Diabetes mellitus, insulin dependent (IDDM), uncontrolled Assessment/Plan: BGM Code(s): E10.65 - TYPE 1 DIABETES MELLITUS WITH HYPERGLYCEMIA Qualifiers: Chronic kidney disease stage: stage 3 (moderate) (4) Lymphoma Code(s): C85.90 - NON-HODGKIN LYMPHOMA, UNSPECIFIED, UNSPECIFIED SITE (5) METHADONE MAINTENANCE Assessment/Plan: on methadone
--- NOTE | 2016-11-08 12:35 | PN ---
Progress Note (short form) - Note Progress Note: Patient seen in follow up. No new complaints. No events overnight. Medications reviewed. Current Medications Generic Name Dose Route Start Last Admin Trade Name Freq PRN Reason Stop Dose Admin Albuterol/Ipratropium 1 amp 11/05/16 18:41 Duoneb - NEB Q4H PRN SHORTNESS OF BREATH Furosemide 40 mg 11/08/16 10:00 11/08/16 10:12 Lasix - PO 40 mg DAILY [facility] Administration Insulin Aspart 1 vial 11/05/16 22:00 11/08/16 07:14 Novolog Vial Sliding Scale - SQ 2 units ACHS [facility] Administration Protocol Insulin Detemir 20 units 11/05/16 22:00 11/07/16 23:02 Levemir Vial SQ 20 unit HS [facility] Administration Lactulose 30 gm 11/06/16 11:00 11/08/16 10:13 Cephulac (Oral Use) PO Not Given QID [facility]EN Lactulose 200 gm 11/07/16 14:15 11/08/16 05:53 Cephulac (Rectal Use) KS 200 gm TID JADEN Administration Methadone HCl 10 mg/ Methadone 15 mg 11/06/16 12:00 11/08/16 05:52 HCl 5 mg PO 15 mg DAILY@0600 [facility] Administration Nadolol 20 mg 11/06/16 10:00 11/08/16 10:12 Corgard - PO 20 mg DAILY [facility] Administration Pantoprazole Sodium 40 mg 11/06/16 10:00 11/08/16 10:12 Protonix - PO 40 mg DAILY [facility] Administration Rifaximin 550 mg 11/05/16 22:00 11/08/16 10:12 Xifaxan - PO 550 mg BID [facility] Administration Spironolactone 50 mg 11/08/16 10:00 11/08/16 10:12 Aldactone - PO 50 mg DAILY [facility] Administration Zinc Sulfate 220 mg 11/06/16 10:00 11/08/16 10:12 Orazinc - PO 220 mg DAILY [facility] Administration On exam: Last Vital Signs Temp Pulse Resp BP Pulse Ox 97.8 F 68 18 131/84 96 11/08/16 10:00 11/08/16 10:00 11/08/16 10:00 11/08/16 10:00 11/08/16 09:00 Alert and co-operative. Well hydrated. Chest: clear Abdomen: Soft, distended, sone shifting dullness and umbilical hernia. CVS: S1, S2, no gallop or murmur. Skin: No angiomata. No petechiae or ecchymoses Neuro: Alert, with some confusion. Improved compared to yesterday. Non-focal. No asterixis. Assessment: Well-known to hematology - Hep C with cirrhosis and liver decompensation, presently with mild encephalopathy. Chronic severe thrombocytopenia, with counts usually 25-50K. Mild anemia, at baseline. Mild coagulopathy - baseline INR circa 1.5. No suggestion of hemorrhage at this time, but certainly at risk. Requires close observation. Counts improved today. If any concern for bleeding then would recommend platelet transfusion (albeit noting prior transfusion refractoriness) with target platelet count 50K).
[2016-11-08 15:32] VITALS: BP 169/91; PULSE 67; TEMP 97.7
--- NOTE | 2016-11-08 16:02 | PN ---
Progress Note, Physician History of Present Illness: Pt seen and examined at bedside. He is awake and alert. He is eager to go home. - Current Medication List Current Medications: Active Medications Albuterol/Ipratropium (Duoneb -) 1 amp NEB Q4H PRN PRN Reason: SHORTNESS OF BREATH Furosemide (Lasix -) 40 mg PO DAILY [facility] Last Admin: 11/08/16 10:12 Dose: 40 mg Insulin Aspart (Novolog Vial Sliding Scale -) 1 vial SQ ACHS [facility] PRN Reason: Protocol Last Admin: 11/08/16 13:01 Dose: 2 units Insulin Detemir (Levemir Vial) 20 units SQ HS [facility] Last Admin: 11/07/16 23:02 Dose: 20 unit Lactulose (Cephulac (Oral Use)) 30 gm PO QID [facility] Last Admin: 11/08/16 14:12 Dose: 30 gm Lactulose (Cephulac (Rectal Use)) 200 gm ND TID [facility] Last Admin: 11/08/16 14:14 Dose: Not Given Methadone HCl 10 mg/ Methadone (HCl 5 mg) 15 mg PO DAILY@0600 [facility] Last Admin: 11/08/16 05:52 Dose: 15 mg Nadolol (Corgard -) 20 mg PO DAILY [facility] Last Admin: 11/08/16 10:12 Dose: 20 mg Pantoprazole Sodium (Protonix -) 40 mg PO DAILY [facility] Last Admin: 11/08/16 10:12 Dose: 40 mg Rifaximin (Xifaxan -) 550 mg PO BID [facility] Last Admin: 11/08/16 10:12 Dose: 550 mg Spironolactone (Aldactone -) 50 mg PO DAILY [facility] Last Admin: 11/08/16 10:12 Dose: 50 mg Zinc Sulfate (Orazinc -) 220 mg PO DAILY [facility] Last Admin: 11/08/16 10:12 Dose: 220 mg - Objective Vital Signs: Vital Signs Temperature 97.7 F 11/08/16 15:29 Pulse Rate 67 11/08/16 15:29 Respiratory Rate 18 11/08/16 15:29 Blood Pressure 169/91 11/08/16 15:29 O2 Sat by Pulse Oximetry (%) 96 11/08/16 09:00 Constitutional: Yes: Calm Eyes: Yes: Conjunctiva Clear HENT: Yes: Atraumatic Cardiovascular: Yes: S1, S2 Respiratory: Yes: On Nasal O2 Gastrointestinal: Yes: Soft, Ascites Genitourinary: Yes: WNL Musculoskeletal: Yes: WNL Edema: Yes Edema: LLE: 1+, RLE: 1+ Neurological: Yes: Oriented Psychiatric: Yes: Oriented Labs: CBC, BMP 11/08/16 07:00 11/08/16 07:00 INR, PTT INR 1.59 (0.82-1.09) H 11/06/16 07:00 Problem List - Problems (1) Cirrhosis of liver Code(s): K74.60 - UNSPECIFIED CIRRHOSIS OF LIVER Qualifiers: (2) Sedative dependence Code(s): F13.20 - SEDATIVE, HYPNOTIC OR ANXIOLYTIC DEPENDENCE, UNCOMPLICATED (3) Altered mental status Code(s): R41.82 - ALTERED MENTAL STATUS, UNSPECIFIED Qualifiers: Altered mental status type: disorientation Qualified Code(s): R41.0 - Disorientation, unspecified (4) Ascites Code(s): R18.8 - OTHER ASCITES Qualifiers: Ascites type: due to alcoholic cirrhosis Qualified Code(s): K70.31 - Alcoholic cirrhosis of liver with ascites (5) CVA (cerebral vascular accident) Code(s): I63.9 - CEREBRAL INFARCTION, UNSPECIFIED (6) Edema Code(s): R60.9 - EDEMA, UNSPECIFIED Qualifiers: Edema type: unspecified Qualified Code(s): R60.9 - Edema, unspecified (7) CKD (chronic kidney disease) Code(s): N18.9 - CHRONIC KIDNEY DISEASE, UNSPECIFIED Qualifiers: Chronic kidney disease stage: stage 2 (mild) Qualified Code(s): N18.2 - Chronic kidney disease, stage 2 (mild) Assessment/Plan Current Medications Generic Name Dose Route Start Last Admin Trade Name Freq PRN Reason Stop Dose Admin Albuterol/Ipratropium 1 amp 11/05/16 18:41 Duoneb - NEB Q4H PRN SHORTNESS OF BREATH Furosemide 40 mg 11/08/16 10:00 11/08/16 10:12 Lasix - PO 40 mg DAILY [facility] Administration Insulin Aspart 1 vial 11/05/16 22:00 11/08/16 13:01 Novolog Vial Sliding Scale - SQ 2 units ACHS [facility] Administration Protocol Insulin Detemir 20 units 11/05/16 22:00 11/07/16 23:02 Levemir Vial SQ 20 unit HS [facility] Administration Lactulose 30 gm 11/06/16 11:00 11/08/16 14:12 Cephulac (Oral Use) PO 30 gm QID [facility] Administration Lactulose 200 gm 11/07/16 14:15 11/08/16 14:14 Cephulac (Rectal Use) ND Not Given TID [facility] Methadone HCl 10 mg/ Methadone 15 mg 11/06/16 12:00 11/08/16 05:52 HCl 5 mg PO 15 mg DAILY@0600 [facility] Administration Nadolol 20 mg 11/06/16 10:00 11/08/16 10:12 Corgard - PO 20 mg DAILY [facility] Administration Pantoprazole Sodium 40 mg 11/06/16 10:00 11/08/16 10:12 Protonix - PO 40 mg DAILY [facility] Administration Rifaximin 550 mg 11/05/16 22:00 11/08/16 10:12 Xifaxan - PO 550 mg BID [facility] Administration Spironolactone 50 mg 11/08/16 10:00 11/08/16 10:12 Aldactone - PO 50 mg DAILY [facility] Administration Zinc Sulfate 220 mg 11/06/16 10:00 11/08/16 10:12 Orazinc - PO 220 mg DAILY [facility] Administration Laboratory Tests 11/07/16 08:35 Urine Protein Negative Urine Glucose (UA) Negative Urine Ketones Negative Urine Blood 2+ H Impression 1. CKD 2. hyperkalemia 3. hep C 4. liver cirrhosis 5. DM 6. ascites 7. methadone dependence 8. anxiety 9. hx lymphoma 10. thrombocytopenia 11. altered mental status 12. COPD 13. CAD Plan - cont lasix and aldactone - monitor potassium - can titrate aldactone up if the potassium remains stable - pt asking to go home - pt has microscopic hematuria, check renal ultrasound - mental status is improving - will need outpt follow up - will follow Dr Vu
--- NOTE | 2016-11-11 11:57 | EKG ---
Test Reason : Blood Pressure : / mmHG Vent. Rate : 062 BPM Atrial Rate : 070 BPM P-R Int : 000 ms QRS Dur : 174 ms QT Int : 526 ms P-R-T Axes : 000 -44 122 degrees QTc Int : 533 ms AV dual-paced rhythm with prolonged AV conduction WITH OCCASIONAL atrial-paced complexes ABNORMAL ECG WHEN COMPARED WITH ECG OF 23-OCT-2016 11:02, VENT. RATE HAS INCREASED BY 2 BPM Confirmed by ALYSSA OLIVER, MOO ([id number] on 11/11/2016 11:57:02 AM Referred By: Confirmed By:MOO SHAH MD
== END 2016-11-08 18:01 | disposition home or self-care (01) | DRG 441 ==
LOC: JER 09:10 → JERBED 14:31 → J8W 17:27
PROVIDERS: ADMIT Family Medicine; ATTEND Family Medicine
DX: K72.90 Hepatic failure, unspecified without coma (principal); K76.7 Hepatorenal syndrome; N17.9 Acute kidney failure, unspecified; K76.6 Portal hypertension; C85.10 Unspecified B-cell lymphoma, unspecified site; F11.20 Opioid dependence, uncomplicated; Z95.0 Presence of cardiac pacemaker; I48.91 Unspecified atrial fibrillation; J44.9 Chronic obstructive pulmonary disease, unspecified; B19.20 Unspecified viral hepatitis C without hepatic coma; D69.6 Thrombocytopenia, unspecified; E11.22 Type 2 diabetes mellitus with diabetic chronic kidney disease; E87.5 Hyperkalemia; I12.9 Hypertensive chronic kidney disease with stage 1 through stage 4 chronic kidney disease, or unspecified chronic kidney disease; N18.9 Chronic kidney disease, unspecified; F41.9 Anxiety disorder, unspecified; F17.210 Nicotine dependence, cigarettes, uncomplicated; Z79.4 Long term (current) use of insulin; I25.10 Atherosclerotic heart disease of native coronary artery without angina pectoris; E11.65 Type 2 diabetes mellitus with hyperglycemia; R16.1 Splenomegaly, not elsewhere classified; E11.40 Type 2 diabetes mellitus with diabetic neuropathy, unspecified; E11.21 Type 2 diabetes mellitus with diabetic nephropathy; K70.31 Alcoholic cirrhosis of liver with ascites; F10.10 Alcohol abuse, uncomplicated; N18.2 Chronic kidney disease, stage 2 (mild)
CPT/HCPCS: 36415; 70450-TC; 71010-TC; 76705-TC; 80048; 80053; 80307; 81003; 81015; 82105; 82140; 82550; 82947; 83036; 83605; 83735; 84443; 84484; 85025; 85610; 85730; 93005; 93010; 99282-25

== ENCOUNTER 2016-12-07 08:34 | Emergency (ER) | payer OTHER ==
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
[2016-12-07 09:03] VITALS: BMI 32.5
[2016-12-07] MEDS ORDERED: OXYCODONE/APAP 5/325MG COMBO TABLET PO ONE ×2 (09:20→14:40)
[2016-12-07] MEDS ORDERED: OXYCODONE/APAP 5/325MG COMBO TABLET ONE ×2 (09:35→15:24)
[2016-12-07] MEDS ORDERED: INSULIN REGULAR HUMAN 100 UNITS/ML *VIAL SQ ONE (09:47)
[2016-12-07 09:55] LABS: BASOPHIL 0.3 % (0-2.0); MCHC 34.5 g/dl (32.0-35.9); MEAN CELL VOLUME 95.6 fl (80-96); NEUTROPHILS 72.6 % (42.8-82.8); RDW 15.5 % (11.9-15.9); WHITE BLOOD COUNT 4.4 K/mm3 (4.0-10.0)
[2016-12-07 09:58] LABS: PLATELET COUNT 35 K/MM3 (134-434)
[2016-12-07] MEDS ORDERED: INSULIN REGULAR HUMAN 100 UNITS/ML *VIAL ONE (10:15)
[2016-12-07 10:16] LABS: ALBUMIN 2.4 g/dl (3.4-5.0); BILIRUBIN,TOTAL 2.3 mg/dL (0.2-1.0); CALCIUM 8.3 mg/dL (8.5-10.1); CREATININE 1.8 mg/dL (0.7-1.3)
--- NOTE | 2016-12-07 11:57 | EKG ---
Test Reason : Blood Pressure : / mmHG Vent. Rate : 070 BPM Atrial Rate : 070 BPM P-R Int : 180 ms QRS Dur : 082 ms QT Int : 450 ms P-R-T Axes : 014 -32 103 degrees QTc Int : 486 ms NORMAL SINUS RHYTHM POSSIBLE LEFT ATRIAL ENLARGEMENT LEFT AXIS DEVIATION LATERAL INFARCT , AGE UNDETERMINED INFERIOR INFARCT , AGE UNDETERMINED ABNORMAL ECG WHEN COMPARED WITH ECG OF 05-NOV-2016 09:55, SINUS RHYTHM HAS REPLACED ELECTRONIC VENTRICULAR PACEMAKER Confirmed by CHA ANDERSON MD ([id number]) on 12/07/2016 11:56:27 AM Referred By: Confirmed By:CHA ANDERSON MD
[2016-12-07 15:28] VITALS: BP 142/87; PULSE 77; TEMP 98.1
== END 2016-12-07 15:27 | disposition home or self-care (01) ==
LOC: JER 08:34
PROC: 3E013VG Introduction of Insulin into Subcutaneous Tissue, Percutaneous Approach (ICD-10-PCS; principal; 2016-12-07)
DX: M79.604 Pain in right leg (principal); G89.29 Other chronic pain; E11.65 Type 2 diabetes mellitus with hyperglycemia; Z79.4 Long term (current) use of insulin; F11.29 Opioid dependence with unspecified opioid-induced disorder; K74.60 Unspecified cirrhosis of liver; I25.2 Old myocardial infarction; I10 Essential (primary) hypertension; F17.210 Nicotine dependence, cigarettes, uncomplicated; Z95.5 Presence of coronary angioplasty implant and graft; Z95.0 Presence of cardiac pacemaker; F41.9 Anxiety disorder, unspecified; D64.9 Anemia, unspecified; Z85.72 Personal history of non-Hodgkin lymphomas
CPT/HCPCS: 36415; 71010-TC; 80053; 85025; 93005; 93010; 96372; 99283-25

== ENCOUNTER 2016-12-08 15:12 | Inpatient (IN) | payer OTHER ==
[2016-12-08 15:39] VITALS: BMI 26.6
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
[2016-12-08 17:05] LABS: BASOPHIL 0.4 % (0-2.0); EOSINOPHIL 2.3 % (0-4.5); MCH 32.5 pg (25.7-33.7); MCHC 34.1 g/dl (32.0-35.9); MEAN CELL VOLUME 95.4 fl (80-96); MEAN PLT VOLUME 10.3 fl (7.5-11.1); NEUTROPHILS 74.5 % (42.8-82.8); PLATELET COUNT 45 K/MM3 (134-434); RDW 15.5 % (11.9-15.9)
[2016-12-08 17:22] LABS: INR 1.48 (0.82-1.09); PROTHROMBIN TIME (PATIENT) 16.4 SEC (9.98-11.88)
[2016-12-08 17:32] LABS: ALBUMIN 2.3 g/dl (3.4-5.0); BILIRUBIN,TOTAL 1.8 mg/dL (0.2-1.0); CREATININE 1.7 mg/dL (0.7-1.3); TOT PROT 8.2 g/dl (6.4-8.2)
[2016-12-08] MEDS ORDERED: INSULIN REGULAR HUMAN 100 UNITS/ML *VIAL IVPUSH ONE (17:47)
[2016-12-08 17:51] LABS: URINE APPEARANCE CLEAR; URINE BILIRUBIN NEGATIVE (NEGATIVE); URINE COLOR YELLOW; URINE GLUCOSE (UA) 3+ (NEGATIVE); URINE KETONE NEGATIVE (NEGATIVE); URINE LEUK ESTERASE NEGATIVE (NEGATIVE); URINE NITRITE NEGATIVE (NEGATIVE); URINE PROTEIN NEGATIVE (NEGATIVE); URINE UROBILINOGEN NEGATIVE E.U./dl (0.2-1.0)
[2016-12-08 17:52] LABS: URINE BLOOD 2+ (NEGATIVE)
[2016-12-08] MEDS ORDERED: INSULIN REGULAR HUMAN 100 UNITS/ML *VIAL ONE ×2 (17:53→19:50)
[2016-12-08 17:56] LABS: URINE RBC 2 /hpf (0-3); URINE WBC 1 /hpf (3-5)
[2016-12-08] MEDS ORDERED: ALBUTEROL SO4 2.5/IPRATROPIUM 0.5 INH SOL 3 ML VIAL.NEB. NEB PRN (18:30)
[2016-12-08] MEDS ORDERED: SODIUM CHLORIDE 1,000 ML IV ONE (18:38)
[2016-12-08] MEDS ORDERED: INSULIN REGULAR HUMAN 100 UNITS/ML *VIAL SQ ONE (19:48)
[2016-12-08] MEDS ORDERED: INSULIN DETEMIR 100 UNITS/ML MDV SQ SCH (22:00)
[2016-12-08] MEDS: INSULIN SLIDING SCALE (NOVOLOG) 1 VIAL SQ SCH (22:50)
[2016-12-08] MEDS: RIFAXIMIN 550 MG TABLET (UD) PO SCH (22:55)
[2016-12-09] MEDS: INSULIN SLIDING SCALE (NOVOLOG) 1 VIAL SQ SCH ×4 (06:49→22:16)
[2016-12-09 07:35] LABS: BASOPHIL 0.5 % (0-2.0); EOSINOPHIL 5.2 % (0-4.5); MCH 32.9 pg (25.7-33.7); MCHC 34.9 g/dl (32.0-35.9); MEAN CELL VOLUME 94.1 fl (80-96); MEAN PLT VOLUME 10.3 fl (7.5-11.1); NEUTROPHILS 64.1 % (42.8-82.8); RDW 15.8 % (11.9-15.9); WHITE BLOOD COUNT 4.1 K/mm3 (4.0-10.0)
[2016-12-09 07:43] LABS: PLATELET COUNT 35 K/MM3 (134-434)
--- NOTE | 2016-12-09 08:10 | HP ---
Admitting History and Physical - Admission History of Present Illness: Patient called ambulance to return to emergency department for severe leg pain, weakness, progressive mental status changes. Patient states feels alert but feels is "not himself". Patient was discharged 2 days ago with weakness. Patient with history of cirrhosis, hepatic failure, diabetes, non-Hodgkin's lymphoma, methadone pended with history of heroin abuse. 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 (hepatic encephalopathy-currently more alert) Cardiovascular: Yes: CAD (reported prior MIs -> stents x4 at [facility] in 1998), HTN, Other (PPM palcement at time of [place] in 1998, abnl EKG witth old inferior [place]) Pulmonary: Yes: COPD, Other (PLEURAL EFFUSION WITH PREVIOUS TAPS) Gastrointestinal: Yes: Ascites, Diverticulitis, Esophageal Varices (This patient does NOT have varices), GI Bleed (s/p multiple blood transfusions), Other (gastri varices / ) Hepatobiliary: Yes: Cirrhosis (ESLD), Hepatitis C, Other (PORTAL HYPERTENSION) Renal/: Yes: Renal Inusuff (CKD (baseline 0.9-1.1)) Heme/Onc: Yes: Anemia, Thrombocytopenia Psych: Yes: Addictions (hx of polysubstance abuse & IVDA on maintenance Methadone), Anxiety Endocrine: Yes: Diabetes Mellitus (insulin-dependent) - Past Surgical History Past Surgical History: Yes: Permanent Pacemaker, Stent (x4), Upper Endoscopy ( with gastric varices/sclerotherapy) - Smoking History Smoking history: Never smoked Have you smoked in the past 12 months: No Aproximately how many cigarettes per day: 5 - Alcohol/Substance Use Hx Alcohol Use: No History of Substance Use: reports: Heroin (on methadone) - Social History ADL: Independent Occupation: not employed History of Recent Travel: No Home Medications - Allergies Allergies/Adverse Reactions: Allergies Allergy/AdvReac Type Severity Reaction Status Date / Time nalbuphine HCl [From Nubain] Allergy Verified 12/08/16 15:34 octreotide AdvReac Verified 12/08/16 15:34 - Home Medications Home Medications: Ambulatory Orders Albuterol 2.5/Ipratropium 0.5 [Duoneb -] 1 amp NEB Q6H PRN #120 amp 10/25/16 Furosemide [Lasix -] 40 mg PO DAILY #30 tablet 10/25/16 Pantoprazole Sodium [Protonix -] 40 mg PO DAILY #30 tablet.ec 10/25/16 Rifaximin [Xifaxan -] 550 mg PO BID #60 tablet 10/25/16 Methadone [Dolophine -] 10 mg PO DAILY 11/05/16 Insulin (Levemir) [Levemir Vial] 20 units SQ HS #0 11/08/16 Lactulose (Oral Use) [Cephulac -] 30 gm PO QID PRN #240 grams 11/08/16 Spironolactone [Aldactone -] 50 mg PO DAILY #30 tablet 11/08/16 Insulin Glargine,Hum.rec.anlog [Lantus Solostar PEN (NF)] 35 units SQ AM Nadolol 40 mg PO DAILY 12/08/16 Ramipril 10 mg PO DAILY 12/08/16 Family Disease History - Family Disease History Family Disease History: Heart Disease: Father (OPEN HEART SX,), CA: Mother (BREAST CANCER,) Review of Systems - Review of Systems Constitutional: reports: Weakness Cardiovascular: denies: Chest Pain Respiratory: reports: SOB on Exertion Gastrointestinal: reports: Bloating. denies: Vomiting Neurological: reports: Pre-Existing Deficit, Unsteady Gait, Weakness Physical Examination Vital Signs: Vital Signs Temperature 98.1 F 12/09/16 06:00 Pulse Rate 69 12/09/16 06:00 Respiratory Rate 20 12/09/16 06:00 Blood Pressure 138/75 12/09/16 06:00 O2 Sat by Pulse Oximetry (%) 97 12/08/16 22:40 Cardiovascular: Yes: Regular Rate and Rhythm Respiratory: Yes: Regular, CTA Bilaterally Gastrointestinal: Yes: Normal Bowel Sounds, Soft, Ascites, Distention Labs: CBC, BMP 12/09/16 06:10 Problem List - Problems (1) Hyperglycemia Assessment/Plan: IVF INSULIN ENDO Code(s): R73.9 - HYPERGLYCEMIA, UNSPECIFIED (2) Diabetes mellitus, insulin dependent (IDDM), uncontrolled Assessment/Plan: ABOVE Code(s): E10.65 - TYPE 1 DIABETES MELLITUS WITH HYPERGLYCEMIA (3) Cirrhosis of liver Assessment/Plan: GI CONSULT Code(s): K74.60 - UNSPECIFIED CIRRHOSIS OF LIVER Qualifiers: Hepatic cirrhosis type: unspecified hepatic cirrhosis Ascites presence : without ascites Qualified Code(s): K74.60 - Unspecified cirrhosis of liver (4) CKD (chronic kidney disease) Code(s): N18.9 - CHRONIC KIDNEY DISEASE, UNSPECIFIED Qualifiers: (5) Lymphoma Code(s): C85.90 - NON-HODGKIN LYMPHOMA, UNSPECIFIED, UNSPECIFIED SITE (6) Thrombocytopenia Assessment/Plan: MONITOR Code(s): D69.6 - THROMBOCYTOPENIA, UNSPECIFIED (7) Progressive anemia Assessment/Plan: FOLLOW LABS W/U ORDERED Code(s): D64.9 - ANEMIA, UNSPECIFIED
[2016-12-09 08:49] LABS: BILIRUBIN,TOTAL 1.2 mg/dL (0.2-1.0); CREATININE 1.3 mg/dL (0.7-1.3); TOT PROT 6.9 g/dl (6.4-8.2)
[2016-12-09] MEDS: METHADONE HCL 10 MG TABLET PO SCH (09:28)
[2016-12-09] MEDS: PANTOPRAZOLE 40 MG TABLET (FP) PO SCH (09:29)
[2016-12-09] MEDS: RIFAXIMIN 550 MG TABLET (UD) PO SCH ×2 (09:29→22:16)
[2016-12-09] MEDS: SPIRONOLACTONE 25 MG TABLET (FP) PO SCH (09:29)
[2016-12-09] MEDS: FUROSEMIDE 40 MG TABLET (FP) PO SCH (09:29)
--- NOTE | 2016-12-09 13:46 | EKG ---
Test Reason : Blood Pressure : / mmHG Vent. Rate : 076 BPM Atrial Rate : 076 BPM P-R Int : 184 ms QRS Dur : 078 ms QT Int : 430 ms P-R-T Axes : 040 -29 101 degrees QTc Int : 483 ms SINUS RHYTHM WITH PREMATURE ATRIAL COMPLEXES POSSIBLE LEFT ATRIAL ENLARGEMENT INFERIOR INFARCT (CITED ON OR BEFORE 07-DEC-2016) ANTEROLATERAL INFARCT (CITED ON OR BEFORE 07-DEC-2016) ABNORMAL ECG WHEN COMPARED WITH ECG OF 07-DEC-2016 09:21, PREMATURE ATRIAL COMPLEXES ARE NOW PRESENT Confirmed by MOO SHAH MD ([id number]) on 12/09/2016 1:46:50 PM Referred By: Confirmed By:MOO SHAH MD
[2016-12-09 16:47] LABS: MEAN CELL VOLUME 94.2 fl (80-96); MEAN PLT VOLUME 10.5 fl (7.5-11.1); RDW 15.7 % (11.9-15.9)
[2016-12-09 16:57] LABS: PLATELET COUNT 47 K/MM3 (134-434)
--- NOTE | 2016-12-09 18:20 | CON.GI ---
Consult Consult Specialty:: change in mental status - History of Present Illness History of Present Illness: 56 y/o male was admitted with severe scrotal pain needing pain meds. Pain meds could not be given because of his change in mental status. 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 (hepatic encephalopathy-currently more alert) Cardio/Vascular: Yes: CAD (reported prior MIs -> stents x4 at [facility] in 1998), HTN , Other (PPM palcement at time of [place] in 1998, abnl EKG witth old inferior [place]) Pulmonary: Yes: COPD, Other (PLEURAL EFFUSION WITH PREVIOUS TAPS) Gastrointestinal: Yes: Ascites, Diverticulitis, Esophageal Varices (This patient does NOT have varices), GI Bleed (s/p multiple blood transfusions), Other (gastri varices / ) Hepatobiliary: Yes: Cirrhosis (ESLD), Hepatitis C, Other (PORTAL HYPERTENSION) Renal/: Yes: Renal Inusuff (CKD (baseline 0.9-1.1)) Psych: Yes: Addictions (hx of polysubstance abuse & IVDA on maintenance Methadone), Anxiety Endocrine: Yes: Diabetes Mellitus (insulin-dependent) - Past Surgical History Past Surgical History: Yes: Permanent Pacemaker, Stent (x4), Upper Endoscopy ( with gastric varices/sclerotherapy) - Alcohol/Substance Use Hx Alcohol Use: No History of Substance Use: reports: Heroin (on methadone) - Smoking History Smoking history: Never smoked Have you smoked in the past 12 months: No Aproximately how many cigarettes per day: 5 - Social History Usual Living Arrangement: Other ( from . The youngest of his 3 children lives with him) ADL: Independent Occupation: not employed History of Recent Travel: No Home Medications - Allergies Allergies/Adverse Reactions: Allergies Allergy/AdvReac Type Severity Reaction Status Date / Time nalbuphine HCl [From Nubain] Allergy Verified 12/08/16 15:34 octreotide AdvReac Verified 12/08/16 15:34 - Home Medications Home Medications: Ambulatory Orders Albuterol 2.5/Ipratropium 0.5 [Duoneb -] 1 amp NEB Q6H PRN #120 amp 10/25/16 Furosemide [Lasix -] 40 mg PO DAILY #30 tablet 10/25/16 Pantoprazole Sodium [Protonix -] 40 mg PO DAILY #30 tablet.ec 10/25/16 Rifaximin [Xifaxan -] 550 mg PO BID #60 tablet 10/25/16 Methadone [Dolophine -] 10 mg PO DAILY 11/05/16 Insulin (Levemir) [Levemir Vial] 20 units SQ HS #0 11/08/16 Lactulose (Oral Use) [Cephulac -] 30 gm PO QID PRN #240 grams 11/08/16 Spironolactone [Aldactone -] 50 mg PO DAILY #30 tablet 11/08/16 Insulin Glargine,Hum.rec.anlog [Lantus Solostar PEN (NF)] 35 units SQ AM Nadolol 40 mg PO DAILY 12/08/16 Ramipril 10 mg PO DAILY 12/08/16 Family Disease History - Family Disease History Family Disease History: Heart Disease: Father (OPEN HEART SX,), CA: Mother (BREAST CANCER,) Physical Exam-GI Vital Signs: Vital Signs Temperature 98.5 F 12/09/16 17:29 Pulse Rate 78 12/09/16 17:29 Respiratory Rate 20 12/09/16 17:29 Blood Pressure 121/74 12/09/16 17:29 O2 Sat by Pulse Oximetry (%) 97 12/09/16 14:40 Constitutional: Yes: Well Nourished Eyes: Yes: Conjunctiva Clear HENT: Yes: Atraumatic Neck: Yes: Supple Cardiovascular: Yes: Regular Rate and Rhythm Respiratory: Yes: CTA Bilaterally ...Auscultate: No: Hypoactive Bowel Sounds ...Palpate: Yes: Soft. No: Guarding, Hepatomegaly, Pulsatile Mass, Splenomegaly , Tenderness, Tenderness, Epigastium Genitourinary: Yes: Other (right scrotal pain, reducible inguinal hernia) Labs: CBC, BMP 12/09/16 15:30 12/09/16 06:10 INR, PTT INR 1.48 (0.82-1.09) H 12/08/16 16:50 Problem List - Problems (1) Right inguinal hernia Assessment/Plan: reducible R> surgical consultation Dilaudid [address] of abdomen and pelvis Code(s): K40.90 - UNIL INGUINAL HERNIA, W/O OBST OR GANGR, NOT SPCF RECUR (2) Hepatic encephalopathy Assessment/Plan: --resolving Code(s): K72.90 - HEPATIC FAILURE, UNSPECIFIED WITHOUT COMA
[2016-12-09] MEDS ORDERED: HYDROmorphone HCL CARPU-JECT 1 MG/1 ML DISP.SYRIN IVPB ONE (18:24)
[2016-12-09] MEDS ORDERED: INSULIN DETEMIR 100 UNITS/ML MDV SQ SCH (22:00)
--- NOTE | 2016-12-10 00:22 | CONSULT ---
Consult Consult Specialty:: endocrine Referred by:: dr.annabi morfin Reason for Consultation:: iddm neuropathy - History of Present Illness History of Present Illness: 56 y male pmh iddm,uncontrolled diabetic gastroparesis,cirhosis liver,hepatic encephalopathy,has poor appetite and admitted with severe leg pain, weakness, progressive mental status changes. Patient states feels alert but feels is "not himself". Patient was discharged 2 days ago with weakness. Patient with history of cirrhosis, hepatic failure, diabetes, non- Hodgkin's lymphoma, methadone pended with history of heroin abuse. 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 (hepatic encephalopathy-currently more alert) Cardio/Vascular: Yes: CAD (reported prior MIs -> stents x4 at [facility] in 1998), HTN , Other (PPM palcement at time of [place] in 1998, abnl EKG witth old inferior [place]) Pulmonary: Yes: COPD, Other (PLEURAL EFFUSION WITH PREVIOUS TAPS) Gastrointestinal: Yes: Ascites, Diverticulitis, Esophageal Varices (This patient does NOT have varices), GI Bleed (s/p multiple blood transfusions), Other (gastri varices / ) Hepatobiliary: Yes: Cirrhosis (ESLD), Hepatitis C, Other (PORTAL HYPERTENSION) Renal/: Yes: Renal Inusuff (CKD (baseline 0.9-1.1)) Psych: Yes: Addictions (hx of polysubstance abuse & IVDA on maintenance Methadone), Anxiety Endocrine: Yes: Diabetes Mellitus (insulin-dependent) - Past Surgical History Past Surgical History: Yes: Permanent Pacemaker, Stent (x4), Upper Endoscopy ( with gastric varices/sclerotherapy) - Alcohol/Substance Use Hx Alcohol Use: No History of Substance Use: reports: Heroin (on methadone) - Smoking History Smoking history: Never smoked Have you smoked in the past 12 months: No Aproximately how many cigarettes per day: 5 - Social History Usual Living Arrangement: Other ( from . The youngest of his 3 children lives with him) ADL: Independent Occupation: not employed History of Recent Travel: No Home Medications - Allergies Allergies/Adverse Reactions: Allergies Allergy/AdvReac Type Severity Reaction Status Date / Time nalbuphine HCl [From Nubain] Allergy Verified 12/08/16 15:34 octreotide AdvReac Verified 12/08/16 15:34 - Home Medications Home Medications: Ambulatory Orders Albuterol 2.5/Ipratropium 0.5 [Duoneb -] 1 amp NEB Q6H PRN #120 amp 10/25/16 Furosemide [Lasix -] 40 mg PO DAILY #30 tablet 10/25/16 Pantoprazole Sodium [Protonix -] 40 mg PO DAILY #30 tablet.ec 10/25/16 Rifaximin [Xifaxan -] 550 mg PO BID #60 tablet 10/25/16 Methadone [Dolophine -] 10 mg PO DAILY 11/05/16 Insulin (Levemir) [Levemir Vial] 20 units SQ HS #0 11/08/16 Lactulose (Oral Use) [Cephulac -] 30 gm PO QID PRN #240 grams 11/08/16 Spironolactone [Aldactone -] 50 mg PO DAILY #30 tablet 11/08/16 Insulin Glargine,Hum.rec.anlog [Lantus Solostar PEN (NF)] 35 units SQ AM Nadolol 40 mg PO DAILY 12/08/16 Ramipril 10 mg PO DAILY 12/08/16 Family Disease History - Family Disease History Family Disease History: Heart Disease: Father (OPEN HEART SX,), CA: Mother (BREAST CANCER,) Review of Systems - Review of Systems Constitutional: reports: Lethargy, Loss of Appetite, Weakness Eyes: reports: No Symptoms HENT: reports: No Symptoms Neck: reports: No Symptoms Cardiovascular: reports: No Symptoms Respiratory: reports: Exercise Intolerance, Orthopnea, SOB, SOB on Exertion Gastrointestinal: reports: Abdominal Pain, Nausea Genitourinary: reports: No Symptoms Breasts: reports: No Symptoms Reported Musculoskeletal: reports: Back Pain, Muscle Pain, Muscle Cramps, Muscle Weakness Integumentary: reports: No Symptoms Neurological: reports: Confusion, Numbness, Parasthesia, Unsteady Gait Endocrine: reports: Flushing, Unexplained Weight Loss Hematology/Lymphatic: reports: No Symptoms Psychiatric: reports: Altered Sleep Pattern, Anxiety, Panic Physical Exam Vital Signs: Vital Signs Temperature 97.8 F 12/09/16 22:16 Pulse Rate 82 12/09/16 22:16 Respiratory Rate 20 12/09/16 22:16 Blood Pressure 151/93 12/09/16 22:16 O2 Sat by Pulse Oximetry (%) 97 12/09/16 21:00 Constitutional: Yes: Calm Eyes: Yes: EOM Intact HENT: Yes: Normocephalic Neck: Yes: Trachea Midline Cardiovascular: Yes: Regular Rate and Rhythm Respiratory: Yes: CTA Bilaterally Gastrointestinal: Yes: Normal Bowel Sounds, Abdomen, Obese, Ascites, Hernia ...Rectal Exam: Yes: Deferred Renal/: Yes: WNL Breast(s): Yes: WNL Musculoskeletal: Yes: Muscle Weakness Edema: LLE: 1+, RLE: 1+ Integumentary: Yes: WNL Neurological: Yes: Alert Labs: CBC, BMP 12/09/16 15:30 12/09/16 06:10 Problem List - Problems (1) Cirrhosis of liver Code(s): K74.60 - UNSPECIFIED CIRRHOSIS OF LIVER Qualifiers: Hepatic cirrhosis type: unspecified hepatic cirrhosis Ascites presence : without ascites Qualified Code(s): K74.60 - Unspecified cirrhosis of liver (2) Hyperglycemia Code(s): R73.9 - HYPERGLYCEMIA, UNSPECIFIED (3) Type 2 diabetes mellitus with other diabetic neurological complication Code(s): E11.49 - TYPE 2 DIABETES W OTH DIABETIC NEUROLOGICAL COMPLICATION Assessment/Plan Current Active Problems Cirrhosis of liver (Acute) Hyperglycemia (Acute) Right inguinal hernia (Acute) iddm uncontrolled neuropathy gastroparesis inguinal hernia/abdominal pain Abnormal Lab Results 12/09/16 12/09/16 12/09/16 06:10 06:10 15:30 RBC 3.00 L 3.18 L Hgb 9.9 L D 10.5 L Hct 28.2 L 30.0 L Plt Count 35 L* D 47 L D Eosinophils % 5.2 H D BUN 33 H Random Glucose 250 H D Calcium 8.0 L Total Bilirubin 1.2 H D AST 131 H D Alkaline Phosphatase 167 H Albumin 2.0 L Laboratory Results - last 24 hr 12/08/16 12/09/16 12/09/16 19:25 01:11 05:47 WBC RBC Hgb Hct MCV MCHC RDW Plt Count MPV Neutrophils % Lymphocytes % Monocytes % Eosinophils % Basophils % Sodium Potassium Chloride Carbon Dioxide Anion Gap BUN Creatinine Creat Clearance w eGFR POC Glucometer > 400 435 375 Random Glucose Calcium Total Bilirubin AST ALT Alkaline Phosphatase Total Protein Albumin Stool Occult Blood 12/09/16 12/09/16 12/09/16 06:10 06:10 12:20 WBC 4.1 RBC 3.00 L Hgb 9.9 L D Hct 28.2 L MCV 94.1 MCHC 34.9 RDW 15.8 Plt Count 35 L* D MPV 10.3 Neutrophils % 64.1 Lymphocytes % 20.8 D Monocytes % 9.4 Eosinophils % 5.2 H D Basophils % 0.5 Sodium 139 Potassium 4.1 Chloride 103 Carbon Dioxide 28 Anion Gap 8 BUN 33 H Creatinine 1.3 D Creat Clearance w eGFR 57.10 POC Glucometer 250 Random Glucose 250 H D Calcium 8.0 L Total Bilirubin 1.2 H D AST 131 H D ALT 53 Alkaline Phosphatase 167 H Total Protein 6.9 Albumin 2.0 L Stool Occult Blood 12/09/16 12/09/16 12/09/16 15:30 17:45 18:30 WBC 5.0 RBC 3.18 L Hgb 10.5 L Hct 30.0 L MCV 94.2 MCHC 35.0 RDW 15.7 Plt Count 47 L D MPV 10.5 Neutrophils % Lymphocytes % Monocytes % Eosinophils % Basophils % Sodium Potassium Chloride Carbon Dioxide Anion Gap BUN Creatinine Creat Clearance w eGFR POC Glucometer 328 Random Glucose Calcium Total Bilirubin AST ALT Alkaline Phosphatase Total Protein Albumin Stool Occult Blood Negative 12/09/16 21:35 WBC RBC Hgb Hct MCV MCHC RDW Plt Count MPV Neutrophils % Lymphocytes % Monocytes % Eosinophils % Basophils % Sodium Potassium Chloride Carbon Dioxide Anion Gap BUN Creatinine Creat Clearance w eGFR POC Glucometer 362 Random Glucose Calcium Total Bilirubin AST ALT Alkaline Phosphatase Total Protein Albumin Stool Occult Blood Current Medications Generic Name Dose Route Start Last Admin Trade Name Freq PRN Reason Stop Dose Admin Albuterol/Ipratropium 1 amp 12/08/16 18:30 Duoneb - NEB Q6H PRN SHORTNESS OF BREATH Furosemide 40 mg 12/09/16 10:00 12/09/16 09:29 Lasix - PO 40 mg DAILY JADEN Administration Insulin Aspart 1 vial 12/09/16 15:56 12/09/16 22:16 Novolog Vial Sliding Scale - SQ 10 units ACHS JADEN Administration Protocol Insulin Detemir 20 units 12/10/16 07:00 Levemir Vial SQ AM JADEN Insulin Detemir 10 units 12/09/16 22:00 12/09/16 22:17 Levemir Vial SQ 10 unit HS JADEN Administration Lactulose 30 gm 12/08/16 18:30 Cephulac (Oral Use) PO QID PRN CONSTIPATION Methadone HCl 10 mg 12/09/16 10:00 12/09/16 09:28 Dolophine - PO 10 mg DAILY JADEN Administration Pantoprazole Sodium 40 mg 12/09/16 10:00 12/09/16 09:29 Protonix - PO 40 mg DAILY JADEN Administration Rifaximin 550 mg 12/08/16 22:00 12/09/16 22:16 Xifaxan - PO 550 mg BID JADEN Administration Spironolactone 50 mg 12/09/16 10:00 12/09/16 09:29 Aldactone - PO 50 mg DAILY JADEN Administration plan bgm novolog insulin scale levemir titrate dose as lactulose will raise sugar levemir 30 am/20 hs
[2016-12-10] MEDS ORDERED: INSULIN DETEMIR 100 UNITS/ML MDV SQ SCH (07:00)
[2016-12-10] MEDS: INSULIN DETEMIR 100 UNITS/ML MDV SQ SCH ×2 (07:02→21:07)
[2016-12-10] MEDS: INSULIN SLIDING SCALE (NOVOLOG) 1 VIAL SQ SCH ×3 (07:02→17:23)
[2016-12-10 08:09] LABS: ALBUMIN 2.1 g/dl (3.4-5.0); CALCIUM 7.9 mg/dL (8.5-10.1)
[2016-12-10 08:14] LABS: BILIRUBIN,TOTAL 1.3 mg/dL (0.2-1.0); CREATININE 1.3 mg/dL (0.7-1.3); TOT PROT 7.1 g/dl (6.4-8.2)
[2016-12-10 08:26] LABS: BASOPHIL 0.4 % (0-2.0); EOSINOPHIL 5.6 % (0-4.5); MCH 33.5 pg (25.7-33.7); MCHC 35.3 g/dl (32.0-35.9); MEAN CELL VOLUME 94.9 fl (80-96); MEAN PLT VOLUME 9.8 fl (7.5-11.1); PLATELET COUNT 39 K/MM3 (134-434); RDW 15.6 % (11.9-15.9); WHITE BLOOD COUNT 4.7 K/mm3 (4.0-10.0)
[2016-12-10 08:30] LABS: FERRITIN 152.059 ng/ml (16.4-293.9)
--- NOTE | 2016-12-10 09:18 | PN ---
GI Progress Note Subjective: Patient c/o pain - Objective Vital Signs: Vital Signs Temperature 98.2 F 12/10/16 06:00 Pulse Rate 78 12/10/16 06:00 Respiratory Rate 20 12/10/16 06:00 Blood Pressure 147/86 12/10/16 06:00 O2 Sat by Pulse Oximetry (%) 97 12/09/16 21:00 Constitutional: Moderate Distress HENT: Yes: Atraumatic Neck: Yes: Supple Cardiovascular: Yes: Regular Rate and Rhythm Respiratory: Yes: CTA Bilaterally Gastrointestinal Inspection: Yes: Ascites ...Auscultate: Yes: Hypoactive Bowel Sounds ...Palpate: Yes: Tenderness (R i nguinal hernia) Neurological: Yes: Alert Labs: CBC, BMP 12/10/16 07:55 12/10/16 06:30 INR, PTT INR 1.48 (0.82-1.09) H 12/08/16 16:50 Hepatic Panel Total Bilirubin 1.3 mg/dL (0.2-1.0) H 12/10/16 06:30 AST 115 U/L (15-37) H 12/10/16 06:30 ALT 51 U/L (12-78) 12/10/16 06:30 Alkaline Phosphatase 180 U/L (45-117) H 12/10/16 06:30 Albumin 2.1 g/dl (3.4-5.0) L 12/10/16 06:30 - ....Imaging Cat Scan: Report Reviewed (R inguinal hernia containing non-obstructed loop of ileum) Assessment/Plan Patient well-known to our service admitted with abdominal pain and found to have a non-reducible inguinal hernia which is very tender to palpation. Patient will likely need surgery for this problem and as such, considering his serious co-morbid conditions, should probably be transferred to [facility] as they have a liver unit and a dedicated surgical ICU, and would be better able to manage his post-op care. Case d/w Dr Jade (surgery)
--- NOTE | 2016-12-10 09:26 | PN ---
Progress Note, Physician History of Present Illness: LEG PAIN GROING PAIN PAIN RADIATING TO THE FOOT UNABLE TO STAND OR WALK - Current Medication List Current Medications: Active Medications Albuterol/Ipratropium (Duoneb -) 1 amp NEB Q6H PRN PRN Reason: SHORTNESS OF BREATH Furosemide (Lasix -) 40 mg PO DAILY [facility] Last Admin: 12/09/16 09:29 Dose: 40 mg Insulin Aspart (Novolog Vial Sliding Scale -) 1 vial SQ ACHS [facility] PRN Reason: Protocol Last Admin: 12/10/16 07:02 Dose: 10 units Insulin Detemir (Levemir Vial) 20 units SQ HS [facility] Insulin Detemir (Levemir Vial) 30 units SQ AM [facility] Last Admin: 12/10/16 07:02 Dose: 30 units Lactulose (Cephulac (Oral Use)) 30 gm PO QID PRN PRN Reason: CONSTIPATION Methadone HCl (Dolophine -) 10 mg PO DAILY [facility] Last Admin: 12/09/16 09:28 Dose: 10 mg Pantoprazole Sodium (Protonix -) 40 mg PO DAILY [facility] Last Admin: 12/09/16 09:29 Dose: 40 mg Rifaximin (Xifaxan -) 550 mg PO BID [facility] Last Admin: 12/09/16 22:16 Dose: 550 mg Spironolactone (Aldactone -) 50 mg PO DAILY [facility] Last Admin: 12/09/16 09:29 Dose: 50 mg - Objective Vital Signs: Vital Signs Temperature 98.2 F 12/10/16 06:00 Pulse Rate 78 12/10/16 06:00 Respiratory Rate 20 12/10/16 06:00 Blood Pressure 147/86 12/10/16 06:00 O2 Sat by Pulse Oximetry (%) 97 12/09/16 21:00 Cardiovascular: Yes: Regular Rate and Rhythm Respiratory: Yes: Regular, CTA Bilaterally Gastrointestinal: Yes: Normal Bowel Sounds, Soft, Distention Extremities: Yes: Other (PAIN ON MOVEMENT) Edema: No Neurological: Yes: Unsteady Gait, Weakness Labs: CBC, BMP 12/10/16 07:55 12/10/16 06:30 INR, PTT INR 1.48 (0.82-1.09) H 12/08/16 16:50 Problem List - Problems (1) Hyperglycemia Assessment/Plan: IVF INSULIN ENDO Code(s): R73.9 - HYPERGLYCEMIA, UNSPECIFIED (2) Diabetes mellitus, insulin dependent (IDDM), uncontrolled Assessment/Plan: ABOVE Code(s): E10.65 - TYPE 1 DIABETES MELLITUS WITH HYPERGLYCEMIA (3) Cirrhosis of liver Assessment/Plan: GI CONSULT Code(s): K74.60 - UNSPECIFIED CIRRHOSIS OF LIVER Qualifiers: Hepatic cirrhosis type: unspecified hepatic cirrhosis Ascites presence : without ascites Qualified Code(s): K74.60 - Unspecified cirrhosis of liver (4) CKD (chronic kidney disease) Code(s): N18.9 - CHRONIC KIDNEY DISEASE, UNSPECIFIED Qualifiers: (5) Lymphoma Code(s): C85.90 - NON-HODGKIN LYMPHOMA, UNSPECIFIED, UNSPECIFIED SITE (6) Thrombocytopenia Assessment/Plan: MONITOR HEM CONSULT Code(s): D69.6 - THROMBOCYTOPENIA, UNSPECIFIED (7) Progressive anemia Assessment/Plan: FOLLOW LABS W/U ORDERED Code(s): D64.9 - ANEMIA, UNSPECIFIED (8) Right inguinal hernia Assessment/Plan: NOT SURE IF PAIN RELATED TO HERNIA VS RADICULPATHY PT HIGH RISK FOR ANY PROCEDURE GI/SURGERY Code(s): K40.90 - UNIL INGUINAL HERNIA, W/O OBST OR GANGR, NOT SPCF RECUR (9) Radiculopathy Assessment/Plan: PT EMG CT SCAN DILUADID WITH CAUTION NEURO Code(s): M54.10 - RADICULOPATHY, SITE UNSPECIFIED
[2016-12-10] MEDS: HYDROmorphone HCL CARPU-JECT 1 MG/1 ML DISP.SYRIN IVPB PRN ×2 (10:20→17:23)
[2016-12-10] MEDS: RIFAXIMIN 550 MG TABLET (UD) PO SCH ×2 (10:24→21:07)
--- NOTE | 2016-12-10 10:24 | CONSULT ---
- Consultation REQUESTING PROVIDER: KEILA OLIVER [facility] umbilical and inguinal hernias by Dr. Salazar PCP:Jag Thompson HISTORY OF PRESENT ILLNESS:56 y/o white male w/ h/o ESLD admitted for abdominal distention and/or pain and hernias; NOC; he has had therapeutic paracentesis a few months ago; apparently he is well known here and at [facility]; he has had a h/o of UGIB. PMHx: reviewed PSHx: ORIF hip fx. Home Medications Medication Instructions Recorded Albuterol 2.5/Ipratropium 0.5 1 amp NEB Q6H PRN #120 amp 10/25/16 [Duoneb -] Furosemide [Lasix -] 40 mg PO DAILY #30 tablet 10/25/16 Pantoprazole Sodium [Protonix -] 40 mg PO DAILY #30 tablet.ec 10/25/16 Rifaximin [Xifaxan -] 550 mg PO BID #60 tablet 10/25/16 Methadone [Dolophine -] 10 mg PO DAILY 11/05/16 Insulin (Levemir) [Levemir Vial] 20 units SQ HS #0 11/08/16 Lactulose (Oral Use) [Cephulac -] 30 gm PO QID PRN #240 grams 11/08/16 Spironolactone [Aldactone -] 50 mg PO DAILY #30 tablet 11/08/16 Insulin Glargine,Hum.rec.anlog 35 units SQ AM 12/08/16 [Lantus Solostar PEN (NF)] Nadolol 40 mg PO DAILY 12/08/16 Ramipril 10 mg PO DAILY 12/08/16 Allergies Allergy/AdvReac Type Severity Reaction Status Date / Time nalbuphine HCl [From Nubain] Allergy Verified 12/08/16 15:34 octreotide AdvReac Verified 12/08/16 15:34 PHYSICAL EXAM: GENERAL: Awake, alert, and fully oriented, in no acute distress. HEAD: Normal with no signs of trauma. EYES: PERRL, sclera anicteric, conjunctiva clear. NECK: Normal ROM, supple without lymphadenopathy, JVD, or masses. LUNGS: Clear to auscultation bilat anteriorly. No wheezes, and no crackles. No accessory muscle use. HEART: Regular rate and rhythm. No murmurs ABDOMEN: Soft, nontender, distended with marked acsites and fluid wave; reducible umbilical hernia, normoactive bowel sounds, no guarding, no rebound, no masses. No organomegaly. Chronically incarcerated right inguinal hernia; no left inguinal hernia MUSCULOSKELETAL: Normal ROM at all joints. No bony deformities or tenderness. No CVA tenderness. UPPER EXTREMITIES: 2+ pulses, warm, well-perfused. No cyanosis. Cap refill <2 seconds. No peripheral edema. LOWER EXTREMITIES: 2+ pulses, warm, well-perfused. No calf tenderness. Marked peripheral edema. NEUROLOGICAL: Normal speech, gait not observed. PSYCH: Cooperative. Good eye contact. Appropriate mood and affect. SKIN: Warm, dry, normal turgor, no rashes or lesions noted. Vital Signs Temperature 98.2 F 12/10/16 06:00 Pulse Rate 78 12/10/16 06:00 Respiratory Rate 20 12/10/16 06:00 Blood Pressure 147/86 12/10/16 06:00 O2 Sat by Pulse Oximetry (%) 97 12/09/16 21:00 Lab Results WBC 4.7 K/mm3 (4.0-10.0) 12/10/16 07:55 RBC 3.16 M/mm3 (4.00-5.60) L 12/10/16 07:55 Hgb 10.6 GM/dL (11.7-16.9) L 12/10/16 07:55 Hct 30.0 % (35.4-49) L 12/10/16 07:55 MCV 94.9 fl (80-96) 12/10/16 07:55 MCHC 35.3 g/dl (32.0-35.9) 12/10/16 07:55 RDW 15.6 % (11.9-15.9) 12/10/16 07:55 Plt Count 39 K/MM3 (134-434) L 12/10/16 07:55 Sodium 139 mmol/L (136-145) 12/10/16 06:30 Potassium 5.0 mmol/L (3.5-5.1) D 12/10/16 06:30 Chloride 104 mmol/L (98-107) 12/10/16 06:30 Carbon Dioxide 26 mmol/L (21-32) 12/10/16 06:30 Anion Gap 9 (8-16) 12/10/16 06:30 BUN 31 mg/dL (7-18) H 12/10/16 06:30 Creatinine 1.3 mg/dL (0.7-1.3) 12/10/16 06:30 Random Glucose 358 mg/dL (74-106) H* D 12/10/16 06:30 Calcium 7.9 mg/dL (8.5-10.1) L 12/10/16 06:30 INR 1.48 (0.82-1.09) H 12/08/16 16:50 CT scan a/p on this admssion reviewed CT scan a/p 02/05/16 reviewed which shows hernia were present then as well as well as right pleural effusion IMP: ESLD/umbilical hernia/right inguinal hernia/right pleural effusion/ thrombocytopenia PLAN: He is a prohibitive risk for hernia repair and surgery is not indicated at the present time; aggressive management of the sequelae of his ESLD should be persued; will f/u prn. Thank you for this consult. Kevin Jade MD FACS Visit type - Case Type Case Type: ED Admission - Emergency Emergency Visit: Yes ED Registration Date: 12/08/16 Care time: The patient presented to the Emergency Department on the above date and was hospitalized for further evaluation of their emergent condition. - New patient This patient is new to me today: Yes Date on this admission: 12/10/16
[2016-12-10] MEDS: SPIRONOLACTONE 25 MG TABLET (FP) PO SCH (10:25)
[2016-12-10] MEDS: PANTOPRAZOLE 40 MG TABLET (FP) PO SCH (10:25)
[2016-12-10] MEDS: METHADONE HCL 10 MG TABLET PO SCH (10:25)
[2016-12-10] MEDS: FUROSEMIDE 40 MG TABLET (FP) PO SCH (10:26)
--- NOTE | 2016-12-10 18:55 | CONSULT ---
Consult - text type - Consultation Consultation Note: 56 y male pmh iddm,uncontrolled diabetic gastroparesis,cirhosis liver,hepatic encephalopathy,has poor appetite and admitted with severe leg pain, weakness, progressive mental status changes. Patient states feels alert but feels is "not himself". c/o RLE below knee to ankle pain/weakness. Also pain rt. 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 (hepatic encephalopathy-currently more alert) Cardio/Vascular: Yes: CAD (reported prior MIs -> stents x4 at [facility] in 1998), HTN , Other (PPM palcement at time of [place] in 1998, abnl EKG witth old inferior [place]) Pulmonary: Yes: COPD, Other (PLEURAL EFFUSION WITH PREVIOUS TAPS) Gastrointestinal: Yes: Ascites, Diverticulitis, Esophageal Varices (This patient does NOT have varices), GI Bleed (s/p multiple blood transfusions), Other (gastri varices / ) Hepatobiliary: Yes: Cirrhosis (ESLD), Hepatitis C, Other (PORTAL HYPERTENSION) Renal/: Yes: Renal Inusuff (CKD (baseline 0.9-1.1)) Psych: Yes: Addictions (hx of polysubstance abuse & IVDA on maintenance Methadone), Anxiety Endocrine: Yes: Diabetes Mellitus (insulin-dependent) - Past Surgical History Past Surgical History: Yes: Permanent Pacemaker, Stent (x4), Upper Endoscopy ( with gastric varices/sclerotherapy) - Alcohol/Substance Use History of Substance Use: reports: Heroin (on methadone) - Smoking History Smoking history: Never smoked - Social History Usual Living Arrangement: Other ( from . The youngest of his 3 children lives with him) ADL: Independent Home Medications - Allergies Allergies/Adverse Reactions: Allergies Allergy/AdvReac Type Severity Reaction Status Date / Time nalbuphine HCl [From Nubain] Allergy Verified 12/08/16 15:34 octreotide AdvReac Verified 12/08/16 15:34 - Home Medications Home Medications: Ambulatory Orders Albuterol 2.5/Ipratropium 0.5 [Duoneb -] 1 amp NEB Q6H PRN #120 amp 10/25/16 Furosemide [Lasix -] 40 mg PO DAILY #30 tablet 10/25/16 Pantoprazole Sodium [Protonix -] 40 mg PO DAILY #30 tablet.ec 10/25/16 Rifaximin [Xifaxan -] 550 mg PO BID #60 tablet 10/25/16 Methadone [Dolophine -] 10 mg PO DAILY 11/05/16 Insulin (Levemir) [Levemir Vial] 20 units SQ HS #0 11/08/16 Lactulose (Oral Use) [Cephulac -] 30 gm PO QID PRN #240 grams 11/08/16 Spironolactone [Aldactone -] 50 mg PO DAILY #30 tablet 11/08/16 Insulin Glargine,Hum.rec.anlog [Lantus Solostar PEN (NF)] 35 units SQ AM Nadolol 40 mg PO DAILY 12/08/16 Ramipril 10 mg PO DAILY 12/08/16 Current Medications Albuterol/Ipratropium (Duoneb -) 1 amp NEB Q4H PRN PRN Reason: SHORTNESS OF BREATH Last Admin: 12/10/16 20:15 Dose: 1 amp Furosemide (Lasix -) 40 mg PO DAILY [facility] Last Admin: 12/10/16 10:26 Dose: 40 mg Hydromorphone HCl (Dilaudid Injection -) 0.5 mg IVPB Q6H PRN PRN Reason: PAIN Last Admin: 12/10/16 17:23 Dose: 0.5 mg Insulin Aspart (Novolog Vial Sliding Scale -) 1 vial SQ ACHS [facility] PRN Reason: Protocol Last Admin: 12/10/16 17:23 Dose: 5 units Insulin Detemir (Levemir Vial) 20 units SQ HS [facility] Insulin Detemir (Levemir Vial) 30 units SQ AM [facility] Last Admin: 12/10/16 07:02 Dose: 30 units Lactulose (Cephulac (Oral Use)) 30 gm PO QID PRN PRN Reason: CONSTIPATION Methadone HCl (Dolophine -) 10 mg PO DAILY [facility] Last Admin: 12/10/16 10:25 Dose: 10 mg Pantoprazole Sodium (Protonix -) 40 mg PO DAILY [facility] Last Admin: 12/10/16 10:25 Dose: 40 mg Rifaximin (Xifaxan -) 550 mg PO BID [facility] Last Admin: 12/10/16 10:24 Dose: 550 mg Spironolactone (Aldactone -) 50 mg PO DAILY [facility] Last Admin: 12/10/16 10:25 Dose: 50 mg Family Disease History - Family Disease History Family Disease History: Heart Disease: Father (OPEN HEART SX,), CA: Mother (BREAST CANCER,) Physical Exam Vital Signs: Last Vital Signs Temp Pulse Resp BP Pulse Ox 98.6 F 88 18 147/87 100 12/10/16 15:25 12/10/16 15:25 12/10/16 15:25 12/10/16 15:25 12/10/16 15:58 Constitutional: Yes: Calm Eyes: Yes: EOM Intact HENT: Yes: Normocephalic Cardiovascular: Yes: Regular Rate and Rhythm Respiratory: Yes: decreased rt. > lt. base Gastrointestinal: Yes: Normal Bowel Sounds, Abdomen, Obese, Ascites, Hernia Renal/: Yes: WNL Musculoskeletal: Yes: Muscle Weakness Edema: LLE: 1+, RLE: 1+ Integumentary: Yes: WNL Neurological: Yes: Alert RT. Lower ext--strength 3/5. poor dorsiflexionof rt. foot Abnormal Lab Results 12/10/16 12/10/16 06:30 07:55 RBC 3.16 L Hgb 10.6 L Hct 30.0 L Plt Count 39 L Eosinophils % 5.6 H BUN 31 H Random Glucose 358 H* D Calcium 7.9 L Total Bilirubin 1.3 H AST 115 H Alkaline Phosphatase 180 H Albumin 2.1 L Current Medications Albuterol/Ipratropium (Duoneb -) 1 amp NEB Q4H PRN PRN Reason: SHORTNESS OF BREATH Last Admin: 12/10/16 20:15 Dose: 1 amp Furosemide (Lasix -) 40 mg PO DAILY [facility] Last Admin: 12/10/16 10:26 Dose: 40 mg Hydromorphone HCl (Dilaudid Injection -) 0.5 mg IVPB Q6H PRN PRN Reason: PAIN Last Admin: 12/10/16 17:23 Dose: 0.5 mg Insulin Aspart (Novolog Vial Sliding Scale -) 1 vial SQ ACHS [facility] PRN Reason: Protocol Last Admin: 12/10/16 17:23 Dose: 5 units Insulin Detemir (Levemir Vial) 20 units SQ HS [facility] Insulin Detemir (Levemir Vial) 30 units SQ AM [facility] Last Admin: 12/10/16 07:02 Dose: 30 units Lactulose (Cephulac (Oral Use)) 30 gm PO QID PRN PRN Reason: CONSTIPATION Methadone HCl (Dolophine -) 10 mg PO DAILY [facility] Last Admin: 12/10/16 10:25 Dose: 10 mg Pantoprazole Sodium (Protonix -) 40 mg PO DAILY [facility] Last Admin: 12/10/16 10:25 Dose: 40 mg Rifaximin (Xifaxan -) 550 mg PO BID [facility] Last Admin: 12/10/16 10:24 Dose: 550 mg Spironolactone (Aldactone -) 50 mg PO DAILY [facility] Last Admin: 12/10/16 10:25 Dose: 50 mg Assessment/Plan Current Active Problems Cirrhosis of liver (Acute) Hyperglycemia (Acute) Right inguinal hernia (Acute) iddm uncontrolled neuropathy gastroparesis inguinal hernia/abdominal pain Rt. 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 this was presumed to be an evolving clone . No e/o adenopathy. discussed with gi team. Given advanced cirrhosis unlikely to benefit from hep. C treatment Transfuse platelets/ FFP for active bleeding Rt. inguinal hernia --- comlicated management due to cirrhosis Rt. Lower ext. weakness/numbmess/dorsiflexion deficit -- Dr. Andino note noted -- neuropathy due to DM. CT LS spinme pending. await neuro input
[2016-12-10] MEDS ORDERED: NALOXONE HCL 0.4 MG/ML VIAL IVPUSH PRN (19:12)
[2016-12-10] MEDS ORDERED: ALBUTEROL SO4 2.5/IPRATROPIUM 0.5 INH SOL 3 ML VIAL.NEB. NEB PRN (19:14)
[2016-12-10] MEDS ORDERED: NALOXONE HCL 0.4 MG/ML VIAL ONE (20:00)
[2016-12-10] MEDS ORDERED: NALOXONE HCL 0.4 MG/ML VIAL IVPUSH ONE (20:02)
--- NOTE | 2016-12-10 20:11 | CONS ---
DATE OF CONSULTATION: 12/10/2016 DATE OF ELECTRODIAGNOSTIC STUDIES: 12/10/2016 PHYSICAL MEDICINE REHABILITATION ELECTRODIAGNOSTIC CONSULTATION REFERRING PHYSICIAN: Jag Thompson M.D. HISTORY OF PRESENT ILLNESS: The patient is a 56-year-old man with past medical history of diabetes, as well as hepatic failure with underlying liver cirrhosis and Hodgkin lymphoma who was admitted with severe right lower extremity pain, numbness, and inability to walk. Patient does have mild symptoms in the left lower extremity, but severe numbness, weakness, involving his right lower extremity, inability to lift up his foot. Patient states his symptoms started about 6 days ago, prior to this, he was able to ambulate without any difficulty. He has no back pain but started to experience symptoms throughout his right lower extremity. Patient was referred for electrodiagnostic evaluation. He was able to ambulate with physical therapy but only for very short distance, and he had difficulty lifting his right foot. Other tests on December 09, patient underwent a CT of the abdomen and pelvis which showed a non-incarcerated inguinal hernia, and liver disease. Patient's blood work shows some mild anemia, hemoglobin 10.6, hematocrit 30.0, normal WBC 4.7, and platelet count is low at 39,000. Chemistries show random glucose of 358, his last hemoglobin A1c last month was 9.6, and he notes that his diabetes is not controlled. He had some elevation in BUN 34, creatinine 1.8 as of December 07. Currently his creatinine has fallen to 1.3. He has some elevation of AST 115, normal ALT. Patient apparently is not a candidate for a liver transplant. Review of past medical and surgical history taken from his medical record as above. Also, diverticulitis, ascites, GI bleed due to varices, renal insufficiency, chronic kidney disease, anemia, thrombocytopenia, polysubstance abuse, IV drug abuse, hepatitis C, longstanding diabetic, permanent pacemaker stent for coronary artery disease, history of [place]. SOCIAL HISTORY: The patient never smoked and did not drink alcohol, but did abuse multiple substances including heroin. He lives in a private house, [facility], but premorbidly states he was able to ambulate without device. Current function, he was seen by physical therapy, able to ambulate 30 feet with rolling walker, contact guard of 2 that required minimum to moderate assist for sit to stand, transfers, and notably right foot drop. REVIEW OF SYSTEMS: No current dizziness, lightheadedness. No blurry vision, double vision. No chest pain, shortness of breath, fever or chills, bowel/bladder change. No numbness, tingling in the upper extremities. No back pain. He has mild proximal weakness but more distal weakness and numbness in the right lower extremity. No fever or chills. PHYSICAL EXAMINATION: General: Patient is a thin man lying on a stretcher. He is awake and cooperative, in no acute distress. He seems to have good insight into his medical condition. HEENT: Normocephalic, atraumatic. Extraocular muscles appear intact. He has no obvious facial weakness, no oral ulcers. Neck: Supple. Extremities: Dysvascular changes in the lower extremities, some abrasions on his toes, no calf tenderness. No pitting edema, perhaps trace edema at best. Neuromuscular: He is awake, alert, cooperative. Cranial nerves 2-12 appear grossly intact. He has got good motor power throughout his upper extremities with normal sensation. He has diminished sensation in his right more than left lower extremity, especially on the dorsum, but also to a lesser degree on the plantar surface, decreased cold temperature bilaterally distally and weakness, inability to dorsiflex on the right 0 out of 5, plantarflexion is at least 3/5 compared to the left side where he has 4 to 4+/5 dorsiflexion and 5/5 plantarflexion. He is able to lift his leg up with some support, but he has got some proximal weakness too, but more sensation in the anterior thigh. Left lower extremity sensation intact proximal to the alvarado, absent reflexes, no tenderness along the sacral paraspinal musculature. Unable to stand or ambulate. He is on a stretcher. For results of EMG nerve conduction studies, please refer to report for details. OVERALL IMPRESSION: 1. 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 2. Unable to comment on whether patient could have diabetic amyotrophy, lumbosacral plexopathy, or lumbosacral radiculopathy, as his symptoms only started 6 days ago. 3. No definite peroneal neuropathy, no slowing at fibular head, and normal amplitude. 4. Gait disorder. 5. Extensive past medical history as outlined above including liver cirrhosis, hepatic failure, coronary artery disease status post stent. 6. Permanent pacemaker, not a candidate for MRI. PLAN/SUGGESTION: 1. Would suggest neurologic consultation. 2. If not contraindicated by his liver and kidney problems would consider starting Lyrica at bedtime or at least gabapentin for pain control, may have to start with a lower dose. 3. Physical therapy. 4. Skin precautions. 5. May benefit from inpatient short-term rehabilitation in a [place] [facility] facility. 6. May need right ankle foot orthosis as an outpatient. 7. Check CAT scan of lumbar spine which has been complete, but the report is not available. Thank you very much for this referral. JUANPABLO STYLES M.D. [id number] MTDD
--- NOTE | 2016-12-10 20:21 | HOSP ---
Subjective - Review of Symptoms Events since last encounter: Pt noted to be minimally responsive by staff with snoring respirations. Pt is a known heroin addict. A paper sleeve was found in his bed with a straw with white powder in it. after vigorous manual stimulation pt able to answer a simple question but then returns back to minimally responsive with sonorous respirations at a rate of 8-12 / minute. Neurological: Yes: Other (minimally responsive) Physical Examination Vital Signs: Vital Signs Temperature 98.6 F 12/10/16 15:25 Pulse Rate 88 12/10/16 15:25 Respiratory Rate 18 12/10/16 15:25 Blood Pressure 147/87 12/10/16 15:25 O2 Sat by Pulse Oximetry (%) 100 12/10/16 15:58 Cardiovascular: Yes: Tachycardia, S1, S2 Respiratory: Yes: Rhonchi (sonorous respirations with exp wheezing, improved with sitting pt upright and stimulation) Labs: CBC, BMP 12/10/16 07:55 12/10/16 06:30 Hospitalist Encounter Assessment: heroin overdose - narcan 0.4mg given IVP with almost immediate improvement in mentation and respirations. strong cough with productive phlegm, suctioned. respirations more clear. - will do CXR to r/o aspiration, new PNA, although likely too early to show - CBC, BMP ordered, ABG initially ordered but given good response to narcan, same cancelled. - continuous pulse oximetry monitoring ordered. - avoid opioid analgesia tonight. - pt initially adamantly denied taking anything but when confronted with paper sleeve and straw and asked what it was, his reply was "you know what it is " - oxygen 2-4L via NC to maintain sat above 90 Addendum: 1230AM: K 5.5. kayexalate 15gm ordered. repeat labs in am. CXR with no significant interval change. no new orders. PCP to f/u in am.
[2016-12-10 21:18] LABS: BASOPHIL 0.7 % (0-2.0); EOSINOPHIL 6.3 % (0-4.5); MCH 33.2 pg (25.7-33.7); MCHC 35.2 g/dl (32.0-35.9); MEAN CELL VOLUME 94.5 fl (80-96); MEAN PLT VOLUME 10.1 fl (7.5-11.1); NEUTROPHILS 70.6 % (42.8-82.8); PLATELET COUNT 64 K/MM3 (134-434); RDW 15.8 % (11.9-15.9)
[2016-12-10 21:35] LABS: CALCIUM 8.1 mg/dL (8.5-10.1); CREATININE 1.7 mg/dL (0.7-1.3)
[2016-12-11] MEDS ORDERED: SODIUM POLYSTYRENE SULFONATE 15 GM/60 ML BOTTLE PO ONE (00:35)
[2016-12-11 06:06] LABS: SERUM IRON 70 ug/dL (38-169); TOTAL IRON BINDING CAPACITY 176 ug/dL (250-450); UIBC 106 ug/dL (111-343)
[2016-12-11] MEDS: INSULIN DETEMIR 100 UNITS/ML MDV SQ SCH ×2 (06:26→21:43)
[2016-12-11] MEDS: INSULIN SLIDING SCALE (NOVOLOG) 1 VIAL SQ SCH ×5 (06:27→21:44)
[2016-12-11 09:01] LABS: BASOPHIL 0.4 % (0-2.0); EOSINOPHIL 1.8 % (0-4.5); MCH 32.7 pg (25.7-33.7); MCHC 34.6 g/dl (32.0-35.9); MEAN CELL VOLUME 94.3 fl (80-96); MEAN PLT VOLUME 9.4 fl (7.5-11.1); NEUTROPHILS 82.1 % (42.8-82.8); PLATELET COUNT 62 K/MM3 (134-434); RDW 15.9 % (11.9-15.9)
[2016-12-11 09:13] LABS: INR 1.4 (0.82-1.09); PROTHROMBIN TIME (PATIENT) 15.5 SEC (9.98-11.88)
[2016-12-11 09:16] LABS: ACTIVATED PTT 30.8 SECONDS (26.9-34.4)
[2016-12-11 09:24] LABS: CALCIUM 7.9 mg/dL (8.5-10.1); CREATININE 1.3 mg/dL (0.7-1.3)
--- NOTE | 2016-12-11 09:49 | PN ---
Progress Note, Physician History of Present Illness: LEG PAIN GROING PAIN PAIN RADIATING TO THE FOOT UNABLE TO STAND OR WALK - Current Medication List Current Medications: Active Medications Albuterol/Ipratropium (Duoneb -) 1 amp NEB Q4H PRN PRN Reason: SHORTNESS OF BREATH Last Admin: 12/10/16 20:15 Dose: 1 amp Furosemide (Lasix -) 40 mg PO DAILY [facility] Last Admin: 12/10/16 10:26 Dose: 40 mg Hydromorphone HCl (Dilaudid Injection -) 0.5 mg IVPB Q6H PRN PRN Reason: PAIN Last Admin: 12/10/16 17:23 Dose: 0.5 mg Insulin Aspart (Novolog Vial Sliding Scale -) 1 vial SQ ACHS [facility] PRN Reason: Protocol Last Admin: 12/11/16 06:27 Dose: 4 units Insulin Detemir (Levemir Vial) 20 units SQ HS [facility] Last Admin: 12/10/16 21:07 Dose: 20 units Insulin Detemir (Levemir Vial) 30 units SQ AM [facility] Last Admin: 12/11/16 06:26 Dose: 30 units Lactulose (Cephulac (Oral Use)) 30 gm PO QID PRN PRN Reason: CONSTIPATION Methadone HCl (Dolophine -) 10 mg PO DAILY [facility] Last Admin: 12/10/16 10:25 Dose: 10 mg Pantoprazole Sodium (Protonix -) 40 mg PO DAILY [facility] Last Admin: 12/10/16 10:25 Dose: 40 mg Rifaximin (Xifaxan -) 550 mg PO BID [facility] Last Admin: 12/10/16 21:07 Dose: 550 mg Spironolactone (Aldactone -) 50 mg PO DAILY [facility] Last Admin: 12/10/16 10:25 Dose: 50 mg - Objective Vital Signs: Vital Signs Temperature 98.8 F 12/11/16 06:00 Pulse Rate 88 12/11/16 06:00 Respiratory Rate 18 12/11/16 06:00 Blood Pressure 149/91 12/11/16 06:00 O2 Sat by Pulse Oximetry (%) 100 12/10/16 23:58 Cardiovascular: Yes: Regular Rate and Rhythm Respiratory: Yes: Regular, CTA Bilaterally Gastrointestinal: Yes: Normal Bowel Sounds, Soft, Ascites Labs: INR, PTT INR 1.40 (0.82-1.09) H 12/11/16 08:20 Fibrinogen 171.0 mg/dL (238-498) L 12/11/16 08:20 Problem List - Problems (1) Hyperglycemia Assessment/Plan: IVF INSULIN ENDO Code(s): R73.9 - HYPERGLYCEMIA, UNSPECIFIED (2) Diabetes mellitus, insulin dependent (IDDM), uncontrolled Assessment/Plan: ABOVE Code(s): E10.65 - TYPE 1 DIABETES MELLITUS WITH HYPERGLYCEMIA (3) Cirrhosis of liver Assessment/Plan: GI CONSULT Code(s): K74.60 - UNSPECIFIED CIRRHOSIS OF LIVER Qualifiers: Hepatic cirrhosis type: unspecified hepatic cirrhosis Ascites presence : without ascites Qualified Code(s): K74.60 - Unspecified cirrhosis of liver (4) CKD (chronic kidney disease) Code(s): N18.9 - CHRONIC KIDNEY DISEASE, UNSPECIFIED Qualifiers: (5) Lymphoma Assessment/Plan: ONC ON CASE Code(s): C85.90 - NON-HODGKIN LYMPHOMA, UNSPECIFIED, UNSPECIFIED SITE (6) Thrombocytopenia Assessment/Plan: MONITOR Code(s): D69.6 - THROMBOCYTOPENIA, UNSPECIFIED (7) Progressive anemia Assessment/Plan: FOLLOW LABS W/U ORDERED Code(s): D64.9 - ANEMIA, UNSPECIFIED (8) Right inguinal hernia Assessment/Plan: NOT SURE IF PAIN RELATED TO HERNIA VS RADICULPATHY PT HIGH RISK FOR ANY PROCEDURE GI/SURGERY Code(s): K40.90 - UNIL INGUINAL HERNIA, W/O OBST OR GANGR, NOT SPCF RECUR (9) Radiculopathy Assessment/Plan: PT EMG CT SCAN DILUADID WITH CAUTION NEURO Code(s): M54.10 - RADICULOPATHY, SITE UNSPECIFIED
[2016-12-11] MEDS: SPIRONOLACTONE 25 MG TABLET (FP) PO SCH (10:09)
[2016-12-11] MEDS: PANTOPRAZOLE 40 MG TABLET (FP) PO SCH (10:09)
[2016-12-11] MEDS: RIFAXIMIN 550 MG TABLET (UD) PO SCH ×2 (10:09→21:43)
[2016-12-11] MEDS: FUROSEMIDE 40 MG TABLET (FP) PO SCH (10:09)
[2016-12-11] MEDS: METHADONE HCL 10 MG TABLET PO SCH (10:10)
[2016-12-11] MEDS: HYDROmorphone HCL CARPU-JECT 1 MG/1 ML DISP.SYRIN IVPB PRN ×3 (10:11→22:02)
--- NOTE | 2016-12-11 13:47 | PN ---
Progress Note (short form) - Note Progress Note: Patient seen and examined Complains of RLE pains Last Vital Signs Temp Pulse Resp BP Pulse Ox 98.8 F 88 18 149/91 100 12/11/16 06:00 12/11/16 06:00 12/11/16 06:00 12/11/16 06:00 12/10/16 23:58 HEENT: ANNABEL, EOM Intact Oropharynx: No thrush, No mucositis, dentures Neck: Supple Cor: RSR, systolic murmur No gallops Lungs:decreased breath sounds RLL Abd: Soft,umbilical hernia, ascites Extstasis changes LE Pulses intact on right -DP/pT/Femoral and popliteal Skin: No rashes, Integument intact right foot areas of abrasion on toes (Big toe, 2 3rd) CBC, BMP 12/11/16 08:20 12/11/16 08:20 Current Medications Generic Name Dose Route Start Last Admin Trade Name Freq PRN Reason Stop Dose Admin Albuterol/Ipratropium 1 amp 12/10/16 19:14 12/10/16 20:15 Duoneb - NEB 1 amp Q4H PRN Administration SHORTNESS OF BREATH Furosemide 40 mg 12/09/16 10:00 12/11/16 10:09 Lasix - PO 40 mg DAILY [facility] Administration Hydromorphone HCl 0.5 mg 12/10/16 09:43 12/11/16 10:11 Dilaudid Injection - IVPB 0.5 mg Q6H PRN Administration PAIN Insulin Aspart 1 vial 12/09/16 15:56 12/11/16 10:10 Novolog Vial Sliding Scale - SQ Not Given ACHS [facility] Protocol Insulin Detemir 20 units 12/10/16 00:23 12/10/16 21:07 Levemir Vial SQ 20 units HS [facility] Administration Insulin Detemir 30 units 12/10/16 07:00 12/11/16 06:26 Levemir Vial SQ 30 units AM [facility] Administration Lactulose 30 gm 12/08/16 18:30 Cephulac (Oral Use) PO QID PRN CONSTIPATION Methadone HCl 10 mg 12/09/16 10:00 12/11/16 10:10 Dolophine - PO 10 mg DAILY [facility] Administration Pantoprazole Sodium 40 mg 12/09/16 10:00 12/11/16 10:09 Protonix - PO 40 mg DAILY [facility] Administration Rifaximin 550 mg 12/08/16 22:00 12/11/16 10:09 Xifaxan - PO 550 mg BID [facility] Administration Spironolactone 50 mg 12/09/16 10:00 12/11/16 10:09 Aldactone - PO 50 mg DAILY [facility] Administration GA#- 41 Impression: Hepatitis c Cirrhosis Hepatic Encephalopathy Portal hypertension Anemia Thrombocytopenia Coagulopathy "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
--- NOTE | 2016-12-11 15:39 | CON.PULM ---
Consult Consult Specialty:: PULMONARY Referred by:: AMARJIT Reason for Consultation:: SOB - History of Present Illness Chief Complaint: SOB History of Present Illness: Patient called ambulance to return to emergency department for severe leg pain, weakness, progressive mental status changes. Patient states feels alert but feels is "not himself". Patient was discharged 2 days ago with weakness. Patient with history of cirrhosis, hepatic failure, diabetes, non-Hodgkin's lymphoma, methadone pended with history of heroin abuse. 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 No: Alzheimer's Cardio/Vascular: Yes: CAD (reported prior MIs -> stents x4 at [facility] in 1998), HTN , Other (PPM palcement at time of [place] in 1998, abnl EKG witth old inferior [place]) Pulmonary: Yes: COPD, Other (PLEURAL EFFUSION WITH PREVIOUS TAPS) Gastrointestinal: Yes: Ascites, Diverticulitis, Esophageal Varices (This patient does NOT have varices), GI Bleed (s/p multiple blood transfusions), Other (gastri varices / ) Hepatobiliary: Yes: Cirrhosis (ESLD), Hepatitis C, Other (PORTAL HYPERTENSION) Renal/: Yes: Renal Inusuff (CKD (baseline 0.9-1.1)) Psych: Yes: Addictions (hx of polysubstance abuse & IVDA on maintenance Methadone), Anxiety Endocrine: Yes: Diabetes Mellitus (insulin-dependent) - Past Surgical History Past Surgical History: Yes: Permanent Pacemaker, Stent (x4), Upper Endoscopy ( with gastric varices/sclerotherapy) - Alcohol/Substance Use Hx Alcohol Use: No History of Substance Use: reports: Heroin (on methadone) - Smoking History Smoking history: Never smoked Have you smoked in the past 12 months: No Aproximately how many cigarettes per day: 5 - Social History Usual Living Arrangement: Other ( from . The youngest of his 3 children lives with him) ADL: Independent Occupation: not employed History of Recent Travel: No Home Medications - Allergies Allergies/Adverse Reactions: Allergies Allergy/AdvReac Type Severity Reaction Status Date / Time nalbuphine HCl [From Nubain] Allergy Verified 12/08/16 15:34 octreotide AdvReac Verified 12/08/16 15:34 - Home Medications Home Medications: Ambulatory Orders Albuterol 2.5/Ipratropium 0.5 [Duoneb -] 1 amp NEB Q6H PRN #120 amp 10/25/16 Furosemide [Lasix -] 40 mg PO DAILY #30 tablet 10/25/16 Pantoprazole Sodium [Protonix -] 40 mg PO DAILY #30 tablet.ec 10/25/16 Rifaximin [Xifaxan -] 550 mg PO BID #60 tablet 10/25/16 Methadone [Dolophine -] 10 mg PO DAILY 11/05/16 Insulin (Levemir) [Levemir Vial] 20 units SQ HS #0 11/08/16 Lactulose (Oral Use) [Cephulac -] 30 gm PO QID PRN #240 grams 11/08/16 Spironolactone [Aldactone -] 50 mg PO DAILY #30 tablet 11/08/16 Insulin Glargine,Hum.rec.anlog [Lantus Solostar PEN (NF)] 35 units SQ AM Nadolol 40 mg PO DAILY 12/08/16 Ramipril 10 mg PO DAILY 12/08/16 Family Disease History - Family Disease History Family Disease History: Heart Disease: Father (OPEN HEART SX,), CA: Mother (BREAST CANCER,) Review of Systems - Review of Systems Constitutional: denies: Fever Eyes: denies: Blurred Vision HENT: denies: Difficult Swallowing Respiratory: reports: Cough, SOB on Exertion. denies: Hemoptysis Gastrointestinal: denies: Abdominal Pain Physical Exam Vital Sings: Vital Signs Temperature 99.2 F 12/11/16 14:45 Pulse Rate 100 H 12/11/16 14:45 Respiratory Rate 18 12/11/16 14:45 Blood Pressure 153/95 12/11/16 14:45 O2 Sat by Pulse Oximetry (%) 100 12/10/16 23:58 Constitutional: Yes: Calm Eyes: Yes: EOM Intact HENT: Yes: Normocephalic Neck: Yes: Trachea Midline Cardiovascular: Yes: Regular Rate and Rhythm Respiratory: Yes: Diminished Gastrointestinal: Yes: Normal Bowel Sounds Musculoskeletal: Yes: WNL Extremities: Yes: WNL Assessment/Plan WILL START NEB TID CHRONIC PLEURAL EFFUSION S/P MULTIPLE TAPS MULTIPLE MEDICAL PROBLEMS LISTED WILL FOLLOW Minh GARZA MD
--- NOTE | 2016-12-11 15:40 | PN ---
S Progress Note (SOAP) Subjective: Pt. admitted to using heroin while in the hospital because of withdrawal sx. . Pt. is only on methadone 10mg daily because he becomes very drowsy at home. Objective: 12/11/16 15:39 Vital Signs - 8 hr 12/11/16 12/11/16 09:03 14:45 Temperature 99.3 F 99.2 F Pulse Rate 94 H 100 H Respiratory 18 18 Rate Blood Pressure 154/87 153/95 Laboratory Last Values WBC 12.0 K/mm3 (4.0-10.0) H D 12/11/16 08:20 Corrected WBC (auto) Cancelled 12/10/16 06:30 RBC 4.14 M/mm3 (4.00-5.60) 12/11/16 08:20 Hgb 13.5 GM/dL (11.7-16.9) 12/11/16 08:20 Hct 39.0 % (35.4-49) 12/11/16 08:20 MCV 94.3 fl (80-96) 12/11/16 08:20 MCHC 34.6 g/dl (32.0-35.9) 12/11/16 08:20 RDW 15.9 % (11.9-15.9) 12/11/16 08:20 Plt Count 62 K/MM3 (134-434) L 12/11/16 08:20 MPV 9.4 fl (7.5-11.1) 12/11/16 08:20 Neutrophils % 82.1 % (42.8-82.8) 12/11/16 08:20 Lymphocytes % 8.2 % (8-40) D 12/11/16 08:20 Monocytes % 7.5 % (3.8-10.2) 12/11/16 08:20 Eosinophils % 1.8 % (0-4.5) 12/11/16 08:20 Basophils % 0.4 % (0-2.0) 12/11/16 08:20 Differential Comment Cancelled 12/10/16 06:30 Smudge Cells Cancelled 12/10/16 06:30 Platelet Estimate Cancelled 12/10/16 06:30 Platelet Comment Cancelled 12/10/16 06:30 Platelet Comment Cancelled 12/10/16 06:30 RBC Morphology Cancelled 12/10/16 06:30 INR 1.40 (0.82-1.09) H 12/11/16 08:20 PTT (Actin FS) 30.8 SECONDS (26.9-34.4) 12/11/16 08:20 Fibrinogen 171.0 mg/dL (238-498) L 12/11/16 08:20 Sodium 135 mmol/L (136-145) L 12/11/16 08:20 Potassium 4.7 mmol/L (3.5-5.1) 12/11/16 08:20 Chloride 101 mmol/L (98-107) 12/11/16 08:20 Carbon Dioxide 24 mmol/L (21-32) 12/11/16 08:20 Anion Gap 10 (8-16) 12/11/16 08:20 BUN 33 mg/dL (7-18) H 12/11/16 08:20 Creatinine 1.3 mg/dL (0.7-1.3) D 12/11/16 08:20 Creat Clearance w eGFR 57.10 (>60) 12/10/16 06:30 POC Glucometer 216 UNITS (()) 12/11/16 13:43 Random Glucose 215 mg/dL (74-106) H 12/11/16 08:20 Calcium 7.9 mg/dL (8.5-10.1) L 12/11/16 08:20 Iron 70 ug/dL (38-169) 12/10/16 13:00 TIBC 176 ug/dL (250-450) L 12/10/16 13:00 Iron Saturation 40 % (15-55) 12/10/16 13:00 Ferritin 152.059 ng/ml (16.4-293.9) 12/10/16 06:30 Total Bilirubin 1.3 mg/dL (0.2-1.0) H 12/10/16 06:30 AST 115 U/L (15-37) H 12/10/16 06:30 ALT 51 U/L (12-78) 12/10/16 06:30 Alkaline Phosphatase 180 U/L (45-117) H 12/10/16 06:30 Ammonia 41.75 umol/L (11-32) H 12/08/16 16:50 LD Total 347 U/L (87-241) H D 12/11/16 08:20 Total Protein 7.1 g/dl (6.4-8.2) 12/10/16 06:30 Albumin 2.1 g/dl (3.4-5.0) L 12/10/16 06:30 Urine Color Yellow 12/08/16 16:50 Urine Appearance Clear 12/08/16 16:50 Urine pH 6.0 (5.0-8.0) 12/08/16 16:50 Ur Specific [place] 1.021 (1.001-1.035) 12/08/16 16:50 Urine Protein Negative (NEGATIVE) 12/08/16 16:50 Urine Glucose (UA) 3+ (NEGATIVE) H 12/08/16 16:50 Urine Ketones Negative (NEGATIVE) 12/08/16 16:50 Urine Blood 2+ (NEGATIVE) H 12/08/16 16:50 Urine Nitrite Negative (NEGATIVE) 12/08/16 16:50 Urine Bilirubin Negative (NEGATIVE) 12/08/16 16:50 Urine Urobilinogen Negative E.U./dl (0.2-1.0) 12/08/16 16:50 Ur Leukocyte Esterase Negative (NEGATIVE) 12/08/16 16:50 Urine RBC 2 /hpf (0-3) 12/08/16 16:50 Urine WBC 1 /hpf (3-5) 12/08/16 16:50 Stool Occult Blood Negative (NEGATIVE) 12/09/16 18:30 labs noted Assessment: 12/11/16 15:39 Opioid dependence on agonist therapy Plan: Increase methadone to 15mg daily while in-pt.
[2016-12-11] MEDS ORDERED: ALBUTEROL SO4 0.083% IH SOL 2.5 MG/3 ML VIAL.NEB. NEB PRN (16:17)
--- NOTE | 2016-12-11 18:25 | CONSULT ---
Consult - text type - Consultation Consultation Note: NEUROLOGY CONSULTATION is greatly appreciated: This 56 yo man with h/o DM, ASHD, S/p [place], s/p stents has long h/o IVDA complicated by Hep C, cirrhosis and liver failure. Seen by me in the past for recurrent episodes of Hepatic encephalopathy. On methadone maintenance but still using intranasal heroin. 5 days ago fell asleep on his reclining chair. When he awoke he had numbness, pain and weakness in the r leg and foot and could not weight bare. Dragging his right leg even with a walker. No low back pain. ALEXANDRE: Atrophic changes both calves. Thin. NEURO: Mildly encephalopathic. Mild dysarthria. CN II-XII: Normal Motor: No drift or tremor. Few beats asterixis. Isolated, severe weakness of ankle dorsiflexion, inversion , eversion (2/5) and plantarflexion (4-/5). Knee flexion/extension normal. Normal to brisk reflexes including Left AJ EXCEPT ABSENT R AJ. Coord: No FTN dystaxia Sensory: Decreased vibration, sharp and temp entire R foot and distal calf. IMP: Right sciatic mononeuropathy sparing knee flexors. Most likely compressive in the distal thigh from sleeping in his chair, intoxicated. Suggest: Avoid further compression to posterior thigh. Check B12, Ammonia. Good control of diabetes. Avoid multiple narcotics and No IV narcotics. D/C PRN Dilaudid IV and increase methadone gradually if necessary for pain. Pt will likely need rehab transfer as if will likely take a few weeks for strength and ambulation to improve. Thank you very much, Eddie Pereira MD
[2016-12-11] MEDS ORDERED: INSULIN (NOVOLOG) ASPART 100 UNITS/ML 10ML VIAL ONE (21:36)
[2016-12-12] MEDS: METHADONE HCL 10 MG TABLET PO SCH (06:01)
[2016-12-12] MEDS: INSULIN DETEMIR 100 UNITS/ML MDV SQ SCH ×2 (06:21→22:15)
[2016-12-12] MEDS: INSULIN SLIDING SCALE (NOVOLOG) 1 VIAL SQ SCH ×4 (06:21→22:14)
[2016-12-12] MEDS: RIFAXIMIN 550 MG TABLET (UD) PO SCH ×2 (09:05→22:14)
[2016-12-12] MEDS: PANTOPRAZOLE 40 MG TABLET (FP) PO SCH (09:05)
[2016-12-12] MEDS: SPIRONOLACTONE 25 MG TABLET (FP) PO SCH (09:05)
[2016-12-12] MEDS: FUROSEMIDE 40 MG TABLET (FP) PO SCH (09:05)
--- NOTE | 2016-12-12 09:06 | HOSP ---
Subjective - Review of Symptoms Subjective: 56 year old male current heroin abuser with medical history of htn, DM, hepatitis C with pacemaker in place, S/p rib fracture a year ago with chest tube , and left hip fracture seen for tachycardia, complaints of chest tightness, shortness of breath and lightheadedness this am. General: No: Chills, Night Sweats, Fatigue, Appetite HEENT: No: Visual Changes, Eye Pain, Ear Pain, Sore Throat Pulmonary: Yes: Other (shortness of breath). No: Cough Cardiovascular: Yes: Palpitations, Light Headedness, Other (chest tightness). No: Chest Pain Gastrointestinal: No: Nausea, Vomiting, Abdominal Pain, Diarrhea, Constipation Genitourinary: No: Dysuria, Frequency, Incontinence, Hematuria Musculoskeletal: No: No Symptoms, Back Pain Neurological: No: Weakness, Numbness, Incoordination Physical Examination Vital Signs: Vital Signs Temperature 98.2 F 12/12/16 08:35 Pulse Rate 130 H 12/12/16 08:35 Respiratory Rate 20 12/12/16 08:35 Blood Pressure 126/68 12/12/16 08:35 O2 Sat by Pulse Oximetry (%) 97 12/12/16 08:36 Constitutional: Yes: Well Nourished, No Distress, Anxious. No: Cachectic, Diaphoresis, Mild Distress, Moderate Distress, Pallor Eyes: Yes: WNL, Conjunctiva Clear, EOM Intact HENT: Yes: Normocephalic. No: Drooling, Epistaxis, Hoarseness, Nasal Congestion , Rhinnorhea Neck: Yes: Supple. No: Decreased ROM, Lymphadenopathy, Tenderness Cardiovascular: Yes: Other (tachycardic with irregular rhythm at 124) Respiratory: Yes: Regular. No: Cough, Diminished, Dullness, Hyperresonant, Kussmaul, Orthopnea, Rales, Rhonchi Gastrointestinal: Yes: Normal Bowel Sounds, Soft. No: Hypoactive Bowel Sounds, Palpable Mass, Splenomegaly, Tenderness Musculoskeletal: Yes: Other (multiple puncture levin on upper extremities from multiple iv attempts, no saline lock in place. Also scrapes noted on upper arms ) Extremities: No: Deformity, Delayed Capillary Refill, Erythema, External Rotation, Pallor Integumentary: Yes: Bruising (on upper extremities dorsal right hand). No: Erythema Wound/Incision: No: Open to air, Unapproximated Neurological: Yes: Alert, Oriented. No: Babinski negative, Tingling ...Motor Strength: WNL Psychiatric: Yes: Alert, Oriented, Other (some anxiety noted and stated) Hospitalist Encounter Assessment: 56 year old male current heroin abuser with medical history of htn, DM, hepatitis C with pacemaker in place, S/p rib fracture a year ago with chest tube , and left hip fracture seen for tachycardia and a-fib as per ekg obtained Plan -ekg obtained -cardiac monitoring -cardiac profile -oxygen 2liters via nasal cannula -spoke with covering physician , Dr. Pelaez , who states he will be in house in one hour to see patient -iv access ordered Patient made aware of orders and transfer to cardiac monitoring unit, awake alert and stable in bed
[2016-12-12 10:09] LABS: TROPONIN I 0.07 ng/ml (0.00-0.05)
[2016-12-12] MEDS: HYDROmorphone HCL CARPU-JECT 1 MG/1 ML DISP.SYRIN IVPB PRN ×3 (10:17→22:24)
--- NOTE | 2016-12-12 10:31 | PN ---
Progress Note, Physician Chief Complaint: FEELS BETTER C/O CHEST TIGHTNESS x 5 DAYS PER PT 2/2 ANXIETY -> REQUESTING "SOMETHING TO HELP ME RELAX" - Current Medication List Current Medications: Active Medications Albuterol Sulfate (Ventolin 0.083% Nebulizer Soln -) 1 amp NEB Q8H PRN PRN Reason: SHORT OF BREATH/WHEEZING Last Admin: 12/12/16 06:25 Dose: 1 amp Furosemide (Lasix -) 40 mg PO DAILY [facility] Last Admin: 12/12/16 09:05 Dose: 40 mg Hydromorphone HCl (Dilaudid Injection -) 0.5 mg IVPB Q6H PRN PRN Reason: PAIN Last Admin: 12/12/16 10:17 Dose: 0.5 mg Insulin Aspart (Novolog Vial Sliding Scale -) 1 vial SQ ACHS [facility] PRN Reason: Protocol Last Admin: 12/12/16 06:21 Dose: 2 units Insulin Detemir (Levemir Vial) 20 units SQ HS [facility] Last Admin: 12/11/16 21:43 Dose: 20 units Insulin Detemir (Levemir Vial) 30 units SQ AM [facility] Last Admin: 12/12/16 06:21 Dose: 30 units Lactulose (Cephulac (Oral Use)) 30 gm PO QID PRN PRN Reason: CONSTIPATION Methadone HCl (Dolophine -) 15 mg PO DAILY@0600 [facility] Last Admin: 12/12/16 06:01 Dose: 15 mg Pantoprazole Sodium (Protonix -) 40 mg PO DAILY [facility] Last Admin: 12/12/16 09:05 Dose: 40 mg Rifaximin (Xifaxan -) 550 mg PO BID [facility] Last Admin: 12/12/16 09:05 Dose: 550 mg Spironolactone (Aldactone -) 50 mg PO DAILY [facility] Last Admin: 12/12/16 09:05 Dose: 50 mg - Objective Vital Signs: Vital Signs Temperature 98.2 F 12/12/16 08:35 Pulse Rate 120 H 12/12/16 09:06 Respiratory Rate 20 12/12/16 09:06 Blood Pressure 117/72 12/12/16 09:06 O2 Sat by Pulse Oximetry (%) 97 12/12/16 08:36 Cardiovascular: Yes: S1, S2 Respiratory: Yes: Regular, CTA Bilaterally Gastrointestinal: Yes: Soft Labs: INR, PTT INR 1.40 (0.82-1.09) H 12/11/16 08:20 Fibrinogen 171.0 mg/dL (238-498) L 12/11/16 08:20 Problem List - Problems (1) Chest pain on breathing Code(s): R07.1 - CHEST PAIN ON BREATHING (2) Opiate dependence Code(s): F11.20 - OPIOID DEPENDENCE, UNCOMPLICATED Qualifiers: Substance use status: with unspecified opioid-induced disorder Qualified Code(s): F11.29 - Opioid dependence with unspecified opioid-induced disorder Assessment/Plan (1) Hyperglycemia Assessment/Plan: IVF INSULIN ENDO Code(s): R73.9 - HYPERGLYCEMIA, UNSPECIFIED (2) Diabetes mellitus, insulin dependent (IDDM), uncontrolled Assessment/Plan: ABOVE Code(s): E10.65 - TYPE 1 DIABETES MELLITUS WITH HYPERGLYCEMIA (3) Cirrhosis of liver Assessment/Plan: GI CONSULTED INR 1.5 AMMONIA 40 F/U Code(s): K74.60 - UNSPECIFIED CIRRHOSIS OF LIVER Qualifiers: Hepatic cirrhosis type: unspecified hepatic cirrhosis Ascites presence : without ascites Qualified Code(s): K74.60 - Unspecified cirrhosis of liver (4) CKD (chronic kidney disease) Code(s): N18.9 - CHRONIC KIDNEY DISEASE, UNSPECIFIED Qualifiers: (5) Lymphoma Assessment/Plan: ONC ON CASE Code(s): C85.90 - NON-HODGKIN LYMPHOMA, UNSPECIFIED, UNSPECIFIED SITE (6) Thrombocytopenia Assessment/Plan: MONITOR PLT 62 Code(s): D69.6 - THROMBOCYTOPENIA, UNSPECIFIED (7) Progressive anemia Assessment/Plan: FOLLOW LABS W/U ORDERED Code(s): D64.9 - ANEMIA, UNSPECIFIED (8) Right inguinal hernia Assessment/Plan: NOT SURE IF PAIN RELATED TO HERNIA VS RADICULPATHY PT HIGH RISK FOR ANY PROCEDURE GI/SURGERY Code(s): K40.90 - UNIL INGUINAL HERNIA, W/O OBST OR GANGR, NOT SPCF RECUR (9) Radiculopathy Assessment/Plan: PT EMG CT SCAN DILUADID WITH CAUTION NEURO Code(s): M54.10 - RADICULOPATHY, SITE UNSPECIFIED (8) Chest pain on breathing Code(s): R07.1 - CHEST PAIN ON BREATHING CASE D/W HOSPITALIST APPRECIATE EKG INTERPRETATION -> tachycardia and a-fib as per ekg obtained TROP +didier -> CARDIO ON CASE RECALLED CPK NEG HR 120 (9) Opiate dependence Code(s): F11.20 - OPIOID DEPENDENCE, UNCOMPLICATED Qualifiers: Substance use status: with unspecified opioid-induced disorder Qualified Code(s): F11.29 - Opioid dependence with unspecified opioid-induced disorder ADDICTION Rx ON CASE SNIFFING HEROIN DURING THIS ADMISSION MMTP 10 -> 15 DAILY SOCIAL MEDIA SPECIALIST FM
[2016-12-12] MEDS ORDERED: dilTIAZem HCL 50 MG/10 ML - 10 ML VIAL IVPUSH ONE (11:17)
--- NOTE | 2016-12-12 11:23 | PN ---
Progress Note (short form) - Note Progress Note: PULMONARY HR 150'S WAS GIVEN 5MG IVP WITH SUBSEQUENT IMPROVEMENT CARDIAC CONSULT REQUESTED HR 88 W ECTOPLCS/PPM CAPTURING ANICTERIC IMPROVED B/L BREATH SOUNDS S1S2 IRREG BS+ SOFT NO EDEMA RAPID AF WITH IMPROVEMENT POST 5MG CARDIZEM MULTIPLE MED PROBLEMS LISTED AWAIT CARDIO EVAL WILL D/C BETA-AGONIST Minh GARZA MD
[2016-12-12 11:35] LABS: MCH 32.6 pg (25.7-33.7); MCHC 34.7 g/dl (32.0-35.9); MEAN PLT VOLUME 9.5 fl (7.5-11.1); PLATELET COUNT 80 K/MM3 (134-434); RDW 16.3 % (11.9-15.9); WHITE BLOOD COUNT 20.8 K/mm3 (4.0-10.0)
[2016-12-12 12:01] LABS: BILIRUBIN,TOTAL 4.6 mg/dL (0.2-1.0); CALCIUM 7.8 mg/dL (8.5-10.1); CREATININE 1.4 mg/dL (0.7-1.3); TOT PROT 7.4 g/dl (6.4-8.2)
--- NOTE | 2016-12-12 12:18 | CON.CARD ---
Consult Consult Specialty:: Cardiology Referred by:: Dr. Pelaez Reason for Consultation:: Cardiac evaluation - History of Present Illness Chief Complaint: Atrial fibrillation with RVR History of Present Illness: Patient had been seen by numerous cardiologists in the recent past including [facility](Cardiology) and [facility], last seen by Dr. Angelina Stewart in October of this year, but currently our group was called for consultation by Dr. Pelaez. This is the first time our group was called to see this patient. Patient is a 56 year old male with complex medical history including CAD, history of IL S/P PCI/stents at [facility] 8 years ago (no details available at this time), S/P PPM ([employer]) implanted here 8 years ago and then generator was changed after that (not certain who follows the pacemaker interrogation), HTN, history of subarachnoid and intraparenchymal hemorrhage, COPD, IDDM, hepatitis C cirrhosis/end stage liver disease, ascites with portal hypertension, esophageal varices and thrombocytopenia S/P paracentesis, low grade B cell lymphoma, diverticulitis, CKD, history of pleural effusion S/P thoracentesis and chest tube, history of severe GI bleed due to gastric varices and history of substance abuse on Methadone treatment, but used Heroine few days ago. He has history of anxiety and has had history of altered mental status. Currently he is admitted with right lower extremity numbness referable to neuropathy due to diabetes, but was transferred to telemetry due to atrial fibrillation with rapid ventricular response. His initial ECG was sinus rhythm on admission, but ECG today demonstrates atrial fibrillation with rapid ventricular response. Patient was given Cardizem 5 mg IVP and now again was prescribed another dose of Cardizem 5 mg IVP. He appears extremely anxious. He complains of shortness of breath intermittently. He also complained of intermittent chest pain. Denies paroxysmal nocturnal dyspnea or orthopnea at the moment. Denies fever or chills. Denies headache or lightheadedness. Denies cough or expectorations. Denies nausea or vomiting. 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 (history of hepatic encephalopathy) Cardio/Vascular: Yes: CAD (reported prior MIs -> stents x4 at [facility] in 1998), HTN , Other (PPM palcement at time of IL in 1998, abnl EKG witth old inferior IL) Pulmonary: Yes: COPD, Other (PLEURAL EFFUSION WITH PREVIOUS thoracentesis and chest tube) Gastrointestinal: Yes: Ascites, Diverticulitis, Esophageal Varices (This patient does NOT have varices), GI Bleed (s/p multiple blood transfusions), Other (gastric varices ) Hepatobiliary: Yes: Cirrhosis (ESLD), Hepatitis C, Other (PORTAL HYPERTENSION) Renal/: Yes: Renal Inusuff (CKD (baseline 0.9-1.1)) Psych: Yes: Addictions (hx of polysubstance abuse & IVDA on maintenance Methadone), Anxiety Endocrine: Yes: Diabetes Mellitus (insulin-dependent) - Past Surgical History Past Surgical History: Yes: Permanent Pacemaker, Stent, Upper Endoscopy (with gastric varices/sclerotherapy) - Alcohol/Substance Use Hx Alcohol Use: No History of Substance Use: reports: Heroin (on methadone) - Smoking History Smoking history: Current every day smoker Have you smoked in the past 12 months: Yes Aproximately how many cigarettes per day: 5 - Social History Usual Living Arrangement: Other ( from . The youngest of his 3 children lives with him) ADL: Independent Occupation: not employed History of Recent Travel: No Home Medications - Allergies Allergies/Adverse Reactions: Allergies Allergy/AdvReac Type Severity Reaction Status Date / Time nalbuphine HCl [From Nubain] Allergy Verified 12/08/16 15:34 octreotide AdvReac Verified 12/08/16 15:34 - Home Medications Home Medications: Ambulatory Orders Albuterol 2.5/Ipratropium 0.5 [Duoneb -] 1 amp NEB Q6H PRN #120 amp 10/25/16 Furosemide [Lasix -] 40 mg PO DAILY #30 tablet 10/25/16 Pantoprazole Sodium [Protonix -] 40 mg PO DAILY #30 tablet.ec 10/25/16 Rifaximin [Xifaxan -] 550 mg PO BID #60 tablet 10/25/16 Methadone [Dolophine -] 10 mg PO DAILY 11/05/16 Insulin (Levemir) [Levemir Vial] 20 units SQ HS #0 11/08/16 Lactulose (Oral Use) [Cephulac -] 30 gm PO QID PRN #240 grams 11/08/16 Spironolactone [Aldactone -] 50 mg PO DAILY #30 tablet 11/08/16 Insulin Glargine,Hum.rec.anlog [Lantus Solostar PEN (NF)] 35 units SQ AM Nadolol 40 mg PO DAILY 12/08/16 Ramipril 10 mg PO DAILY 12/08/16 Family Disease History - Family Disease History Family Disease History: Heart Disease: Father (OPEN HEART SX,), CA: Mother (BREAST CANCER,) Review of Systems - Review of Systems Constitutional: denies: Chills, Fever Cardiovascular: reports: Chest Pain, Palpitations, Shortness of Breath Respiratory: reports: SOB. denies: Cough, Hemoptysis, Orthopnea, PND Gastrointestinal: reports: Other (acities). denies: Abdominal Pain, Constipation, Diarrhea, Melena, Nausea, Rectal Bleeding, Vomiting Musculoskeletal: reports: Joint Pain Neurological: reports: Numbness. denies: Dizziness, Headache, Seizure, Syncope Vital Signs: Vital Signs Temperature 98.2 F 12/12/16 08:35 Pulse Rate 79 12/12/16 11:00 Respiratory Rate 20 12/12/16 10:38 Blood Pressure 125/77 12/12/16 10:38 O2 Sat by Pulse Oximetry (%) 97 12/12/16 08:36 Neck: Yes: Supple Respiratory: Yes: Diminished Gastrointestinal: Yes: Normal Bowel Sounds, Ascites, Distention, Other. No: Tenderness Cardiovascular: Yes: Tachycardia, Pulse Irregular JVD: No Carotid Bruit: No PMI: Non-Displaced Heart Sounds: Yes: S1, S2 Murmur: Yes: Systolic Murmur, Grade 1 Edema: No - Other Data Labs, Other Data: CBC, BMP 12/12/16 11:19 INR, PTT INR 1.40 (0.82-1.09) H 12/11/16 08:20 Fibrinogen 171.0 mg/dL (238-498) L 12/11/16 08:20 Troponin, BNP 12/12/16 09:20 Troponin I 0.07 H D Laboratory Results - last 24 hr 12/12/16 12/12/16 12/12/16 09:20 09:20 11:19 WBC 20.8 H D RBC 4.15 Hgb 13.6 Hct 39.1 MCV 94.0 MCHC 34.7 RDW 16.3 H Plt Count 80 L D MPV 9.5 Neutrophils % 80.0 Lymphocytes % 4.0 L D Monocytes % 6.0 Band Neutrophils 10.0 D Platelet Estimate Decreased Platelet Comment No clotting detected Sodium Potassium Chloride Carbon Dioxide Anion Gap BUN Creatinine Creat Clearance w eGFR POC Glucometer Random Glucose Calcium Total Bilirubin AST ALT Alkaline Phosphatase Creatine Kinase 263 D Creatine Kinase Index 1.1 CK-MB (CK-2) 2.951 CK-MB (CK-2) Rel Index Cancelled Troponin I 0.07 H D Total Protein Albumin 12/12/16 12/12/16 11:19 11:50 WBC RBC Hgb Hct MCV MCHC RDW Plt Count MPV Neutrophils % Lymphocytes % Monocytes % Band Neutrophils Platelet Estimate Platelet Comment Sodium 135 L Potassium 5.1 Chloride 102 Carbon Dioxide 23 Anion Gap 10 BUN 36 H Creatinine 1.4 H Creat Clearance w eGFR 52.42 POC Glucometer 258 Random Glucose 230 H Calcium 7.8 L Total Bilirubin 4.6 H D AST 62 H D ALT 48 Alkaline Phosphatase 177 H Creatine Kinase Creatine Kinase Index CK-MB (CK-2) CK-MB (CK-2) Rel Index Troponin I Total Protein 7.4 Albumin 2.0 L Atrial fibrillation with RVR Echo: Report Reviewed Problem List - Problems (1) Cirrhosis of liver Code(s): K74.60 - UNSPECIFIED CIRRHOSIS OF LIVER Qualifiers: Hepatic cirrhosis type: unspecified hepatic cirrhosis Ascites presence : without ascites Qualified Code(s): K74.60 - Unspecified cirrhosis of liver (2) Type 2 diabetes mellitus with other diabetic neurological complication Code(s): E11.49 - TYPE 2 DIABETES W H DIABETIC NEUROLOGICAL COMPLICATION (3) Acute on chronic renal failure Code(s): N17.9 - ACUTE KIDNEY FAILURE, UNSPECIFIED N18.9 - CHRONIC KIDNEY DISEASE, UNSPECIFIED (4) Anxiety Code(s): F41.9 - ANXIETY DISORDER, UNSPECIFIED (5) Ascites Code(s): R18.8 - OTHER ASCITES Qualifiers: Ascites type: due to alcoholic cirrhosis Qualified Code(s): K70.31 - Alcoholic cirrhosis of liver with ascites (6) Diabetes mellitus, insulin dependent (IDDM), uncontrolled Code(s): E10.65 - TYPE 1 DIABETES MELLITUS WITH HYPERGLYCEMIA (7) Esophageal varices Code(s): I85.00 - ESOPHAGEAL VARICES WITHOUT BLEEDING (8) Gastric varix Code(s): I86.4 - GASTRIC VARICES (9) Hepatitis C virus infection Code(s): B19.20 - UNSPECIFIED VIRAL HEPATITIS C WITHOUT HEPATIC COMA (10) Lymphoma Code(s): C85.90 - NON-HODGKIN LYMPHOMA, UNSPECIFIED, UNSPECIFIED SITE (12) Pacemaker Code(s): Z95.0 - PRESENCE OF CARDIAC PACEMAKER (13) Pleural effusion on right Code(s): J90 - PLEURAL EFFUSION, NOT ELSEWHERE CLASSIFIED (14) Thrombocytopenia Code(s): D69.6 - THROMBOCYTOPENIA, UNSPECIFIED (15) Atrial fibrillation with rapid ventricular response Code(s): I48.91 - UNSPECIFIED ATRIAL FIBRILLATION (16) Portal hypertension Code(s): K76.6 - PORTAL HYPERTENSION Assessment/Plan 1. Atrial fibrillation with rapid ventricular response 2. CAD, history of [place], S/P PCI/stent, angina pectoris 3. Sick sinus syndrome S/P PPM ([employer]) 4. HTN 5. IDDM 6. Hepatic cirrhosis/hepatitis C/ascites/Portal hypertenson/esophageal varices S /P paracentesis 7. History of pleural effusion s/p thoracentesis and chest tube - total opacification of right lung field currently 8. Substance abuse on Methadone, but has used Heroine recently 9. History of B cell lymphoma 10. Thrombocytopenia due to above issues 11. COPD 12. History of GI bleed due to esophageal and gastric varices 13. History of subarrachnoid hemorrhage PLAN: 1. Cardizem IV as needed. Add Lopressor 25 mg BID and uptitrate 2. Not an ideal candidate for rn long term care anticoagulation in view of liver disease , esophageal and gastric varices, GI bleed and intracranial bleed. 3. Transthoracic echocardiography is to be repeated 4. Continue Spironolactone as tolerated 5. Heme/Onc input noted 6. Pulmonary input noted Prognosis: guarded Further plans are to follow Lui Kumar MD
[2016-12-12] MEDS: METOPROLOL TARTRATE 25 MG TABLET (FP) PO SCH ×2 (12:32→22:14)
[2016-12-12 13:25] LABS: PLATELET COMMENT2 NO CLOTTING DETECTED; PLATELET ESTIMATE DECREASED (NORMAL)
--- NOTE | 2016-12-12 13:31 | EKG ---
Test Reason : Blood Pressure : / mmHG Vent. Rate : 158 BPM Atrial Rate : 117 BPM P-R Int : 000 ms QRS Dur : 084 ms QT Int : 296 ms P-R-T Axes : 000 038 153 degrees QTc Int : 480 ms ATRIAL FIBRILLATION WITH RAPID VENTRICULAR RESPONSE POSSIBLE INFERIOR INFARCT (CITED ON OR BEFORE 07-DEC-2016) ABNORMAL ECG WHEN COMPARED WITH ECG OF 08-DEC-2016 17:02, ATRIAL FIBRILLATION HAS REPLACED SINUS RHYTHM VENT. RATE HAS INCREASED Confirmed by ANAID DICKSON MD ([id number]) on 12/12/2016 1:30:42 PM Referred By: KEILA Confirmed By:ANAID DICKSON MD
[2016-12-13 03:22] LABS: URINE MARIJUANA THC NEGATIVE ng/ml (CUTOFF=50)
[2016-12-13] MEDS: INSULIN SLIDING SCALE (NOVOLOG) 1 VIAL SQ SCH ×4 (06:10→21:10)
[2016-12-13] MEDS: METHADONE HCL 10 MG TABLET PO SCH (06:28)
[2016-12-13] MEDS: INSULIN DETEMIR 100 UNITS/ML MDV SQ SCH ×2 (06:29→21:10)
[2016-12-13 08:26] LABS: BASOPHIL 0.5 % (0-2.0); EOSINOPHIL 1.2 % (0-4.5); MCH 32.8 pg (25.7-33.7); MCHC 34.8 g/dl (32.0-35.9); MEAN CELL VOLUME 94.4 fl (80-96); MEAN PLT VOLUME 9.7 fl (7.5-11.1); NEUTROPHILS 75.4 % (42.8-82.8); PLATELET COUNT 73 K/MM3 (134-434); RDW 16.4 % (11.9-15.9); WHITE BLOOD COUNT 13.7 K/mm3 (4.0-10.0)
[2016-12-13 08:50] LABS: INR 1.54 (0.82-1.09); PROTHROMBIN TIME (PATIENT) 17.1 SEC (9.98-11.88)
--- NOTE | 2016-12-13 08:53 | PN ---
Progress Note, Physician Chief Complaint: FEELS BETTER LAYING FLAT IN BED WITH NO DISTRESS - Current Medication List Current Medications: Active Medications Furosemide (Lasix -) 40 mg PO DAILY [facility] Last Admin: 12/12/16 09:05 Dose: 40 mg Hydromorphone HCl (Dilaudid Injection -) 0.5 mg IVPB Q6H PRN PRN Reason: PAIN Last Admin: 12/12/16 22:24 Dose: 0.5 mg Insulin Aspart (Novolog Vial Sliding Scale -) 1 vial SQ ACHS [facility] PRN Reason: Protocol Last Admin: 12/13/16 06:10 Dose: Not Given Insulin Detemir (Levemir Vial) 20 units SQ HS [facility] Last Admin: 12/12/16 22:15 Dose: 20 units Insulin Detemir (Levemir Vial) 30 units SQ AM [facility] Last Admin: 12/13/16 06:29 Dose: 30 units Lactulose (Cephulac (Oral Use)) 30 gm PO QID PRN PRN Reason: CONSTIPATION Methadone HCl (Dolophine -) 15 mg PO DAILY@0600 [facility] Last Admin: 12/13/16 06:28 Dose: 15 mg Metoprolol Tartrate (Lopressor -) 25 mg PO BID [facility] Last Admin: 12/12/16 22:14 Dose: 25 mg Pantoprazole Sodium (Protonix -) 40 mg PO DAILY [facility] Last Admin: 12/12/16 09:05 Dose: 40 mg Rifaximin (Xifaxan -) 550 mg PO BID [facility] Last Admin: 12/12/16 22:14 Dose: 550 mg Spironolactone (Aldactone -) 50 mg PO DAILY [facility] Last Admin: 12/12/16 09:05 Dose: 50 mg - Objective Vital Signs: Vital Signs Temperature 98.7 F 12/13/16 07:50 Pulse Rate 76 12/13/16 07:50 Respiratory Rate 20 12/13/16 07:50 Blood Pressure 122/75 12/13/16 07:50 O2 Sat by Pulse Oximetry (%) 96 12/13/16 07:40 Cardiovascular: Yes: WNL Respiratory: Yes: WNL Gastrointestinal: Yes: Distention Edema: Yes Labs: CBC, BMP 12/13/16 05:45 INR, PTT INR 1.40 (0.82-1.09) H 12/11/16 08:20 Fibrinogen 171.0 mg/dL (238-498) L 12/11/16 08:20 Problem List - Problems (1) Chest pain on breathing Code(s): R07.1 - CHEST PAIN ON BREATHING (2) Opiate dependence Code(s): F11.20 - OPIOID DEPENDENCE, UNCOMPLICATED Qualifiers: Substance use status: with unspecified opioid-induced disorder Qualified Code(s): F11.29 - Opioid dependence with unspecified opioid-induced disorder Assessment/Plan (1) Hyperglycemia Assessment/Plan: IVF INSULIN ENDO Code(s): R73.9 - HYPERGLYCEMIA, UNSPECIFIED (2) Diabetes mellitus, insulin dependent (IDDM), uncontrolled Assessment/Plan: ABOVE Code(s): E10.65 - TYPE 1 DIABETES MELLITUS WITH HYPERGLYCEMIA (3) Cirrhosis of liver Assessment/Plan: GI CONSULTED INR 1.5 -> F/U AMMONIA 40 -> F/U F/U Code(s): K74.60 - UNSPECIFIED CIRRHOSIS OF LIVER Qualifiers: Hepatic cirrhosis type: unspecified hepatic cirrhosis Ascites presence : without ascites Qualified Code(s): K74.60 - Unspecified cirrhosis of liver (4) CKD (chronic kidney disease) Code(s): N18.9 - CHRONIC KIDNEY DISEASE, UNSPECIFIED Qualifiers: (5) Lymphoma Assessment/Plan: ONC ON CASE Code(s): C85.90 - NON-HODGKIN LYMPHOMA, UNSPECIFIED, UNSPECIFIED SITE (6) Thrombocytopenia Assessment/Plan: MONITOR PLT 62 -> F/U Code(s): D69.6 - THROMBOCYTOPENIA, UNSPECIFIED (7) Progressive anemia Assessment/Plan: FOLLOW LABS W/U ORDERED Code(s): D64.9 - ANEMIA, UNSPECIFIED (8) Right inguinal hernia Assessment/Plan: NOT SURE IF PAIN RELATED TO HERNIA VS RADICULPATHY PT HIGH RISK FOR ANY PROCEDURE GI/SURGERY Code(s): K40.90 - UNIL INGUINAL HERNIA, W/O OBST OR GANGR, NOT SPCF RECUR (9) Radiculopathy Assessment/Plan: PT EMG CT SCAN DILUADID WITH CAUTION NEURO Code(s): M54.10 - RADICULOPATHY, SITE UNSPECIFIED (8) Chest pain on breathing Code(s): R07.1 - CHEST PAIN ON BREATHING CASE D/W HOSPITALIST CARDIO ON CASE CPK NEG TROP INCed -> F/U (9) Opiate dependence Code(s): F11.20 - OPIOID DEPENDENCE, UNCOMPLICATED Qualifiers: Substance use status: with unspecified opioid-induced disorder Qualified Code(s): F11.29 - Opioid dependence with unspecified opioid-induced disorder ADDICTION Rx ON CASE SNIFFING HEROIN DURING THIS ADMISSION MMTP 10 -> 15 DAILY [employer] FM
[2016-12-13] MEDS: RIFAXIMIN 550 MG TABLET (UD) PO SCH ×2 (09:20→21:10)
[2016-12-13] MEDS: FUROSEMIDE 40 MG TABLET (FP) PO SCH (09:20)
[2016-12-13] MEDS: METOPROLOL TARTRATE 25 MG TABLET (FP) PO SCH ×2 (09:20→21:10)
[2016-12-13] MEDS: PANTOPRAZOLE 40 MG TABLET (FP) PO SCH (09:20)
[2016-12-13] MEDS: SPIRONOLACTONE 25 MG TABLET (FP) PO SCH (09:20)
[2016-12-13] MEDS: HYDROmorphone HCL CARPU-JECT 1 MG/1 ML DISP.SYRIN IVPB PRN ×3 (09:20→22:14)
[2016-12-13 09:22] LABS: CALCIUM 7.8 mg/dL (8.5-10.1); CREATININE 1.3 mg/dL (0.7-1.3); TOT PROT 7.2 g/dl (6.4-8.2)
--- NOTE | 2016-12-13 10:31 | PN ---
Progress Note, Physician Chief Complaint: Feels better Not in distress History of Present Illness: Patient was seen and examined. Awake and alert. Chart was reviewed Denies chest pain, SOB or palpitation Currently in sinus rhythm - Current Medication List Current Medications: Active Medications Furosemide (Lasix -) 40 mg PO DAILY [facility] Last Admin: 12/13/16 09:20 Dose: 40 mg Hydromorphone HCl (Dilaudid Injection -) 0.5 mg IVPB Q6H PRN PRN Reason: PAIN Last Admin: 12/13/16 09:20 Dose: 0.5 mg Insulin Aspart (Novolog Vial Sliding Scale -) 1 vial SQ ACHS [facility] PRN Reason: Protocol Last Admin: 12/13/16 06:10 Dose: Not Given Insulin Detemir (Levemir Vial) 20 units SQ HS [facility] Last Admin: 12/12/16 22:15 Dose: 20 units Insulin Detemir (Levemir Vial) 30 units SQ AM [facility] Last Admin: 12/13/16 06:29 Dose: 30 units Lactulose (Cephulac (Oral Use)) 30 gm PO QID PRN PRN Reason: CONSTIPATION Methadone HCl (Dolophine -) 15 mg PO DAILY@0600 [facility] Last Admin: 12/13/16 06:28 Dose: 15 mg Metoprolol Tartrate (Lopressor -) 25 mg PO BID [facility] Last Admin: 12/13/16 09:20 Dose: 25 mg Pantoprazole Sodium (Protonix -) 40 mg PO DAILY [facility] Last Admin: 12/13/16 09:20 Dose: 40 mg Rifaximin (Xifaxan -) 550 mg PO BID [facility] Last Admin: 12/13/16 09:20 Dose: 550 mg Spironolactone (Aldactone -) 50 mg PO DAILY [facility] Last Admin: 12/13/16 09:20 Dose: 50 mg - Objective Vital Signs: Vital Signs Temperature 98.7 F 12/13/16 07:50 Pulse Rate 76 12/13/16 07:50 Respiratory Rate 20 12/13/16 07:50 Blood Pressure 122/75 12/13/16 07:50 O2 Sat by Pulse Oximetry (%) 96 12/13/16 07:40 Neck: Yes: Supple Cardiovascular: Yes: Regular Rate and Rhythm, S1, S2 Respiratory: Yes: Diminished Gastrointestinal: Yes: Normal Bowel Sounds, Ascites, Distention. No: Tenderness Edema: No Additional Findings/Remarks: - Review of Systems Constitutional: denies: Chills, Fever Cardiovascular: reports: Chest Pain, Palpitations, Shortness of Breath Respiratory: reports: SOB. denies: Cough, Hemoptysis, Orthopnea, PND Gastrointestinal: reports: Other (acities). denies: Abdominal Pain, Constipation, Diarrhea, Melena, Nausea, Rectal Bleeding, Vomiting Musculoskeletal: reports: Joint Pain Neurological: reports: Numbness. denies: Dizziness, Headache, Seizure, Syncope Labs: CBC, BMP 12/13/16 05:45 12/13/16 05:45 INR, PTT INR 1.54 (0.82-1.09) H 12/13/16 05:45 Fibrinogen 171.0 mg/dL (238-498) L 12/11/16 08:20 Problem List - Problems (1) Cirrhosis of liver Code(s): K74.60 - UNSPECIFIED CIRRHOSIS OF LIVER Qualifiers: Hepatic cirrhosis type: unspecified hepatic cirrhosis Ascites presence : without ascites Qualified Code(s): K74.60 - Unspecified cirrhosis of liver (2) Type 2 diabetes mellitus with other diabetic neurological complication Code(s): E11.49 - TYPE 2 DIABETES W OTH DIABETIC NEUROLOGICAL COMPLICATION (3) Acute on chronic renal failure Code(s): N17.9 - ACUTE KIDNEY FAILURE, UNSPECIFIED N18.9 - CHRONIC KIDNEY DISEASE, UNSPECIFIED (4) Anxiety Code(s): F41.9 - ANXIETY DISORDER, UNSPECIFIED (5) Ascites Code(s): R18.8 - OTHER ASCITES Qualifiers: Ascites type: due to alcoholic cirrhosis Qualified Code(s): K70.31 - Alcoholic cirrhosis of liver with ascites (6) Diabetes mellitus, insulin dependent (IDDM), uncontrolled Code(s): E10.65 - TYPE 1 DIABETES MELLITUS WITH HYPERGLYCEMIA (7) Esophageal varices Code(s): I85.00 - ESOPHAGEAL VARICES WITHOUT BLEEDING (8) Gastric varix Code(s): I86.4 - GASTRIC VARICES (9) Hepatitis C virus infection Code(s): B19.20 - UNSPECIFIED VIRAL HEPATITIS C WITHOUT HEPATIC COMA (10) Lymphoma Code(s): C85.90 - NON-HODGKIN LYMPHOMA, UNSPECIFIED, UNSPECIFIED SITE (12) Pacemaker Code(s): Z95.0 - PRESENCE OF CARDIAC PACEMAKER (13) Pleural effusion on right Code(s): J90 - PLEURAL EFFUSION, NOT ELSEWHERE CLASSIFIED (14) Thrombocytopenia Code(s): D69.6 - THROMBOCYTOPENIA, UNSPECIFIED (15) Atrial fibrillation with rapid ventricular response Code(s): I48.91 - UNSPECIFIED ATRIAL FIBRILLATION (16) Portal hypertension Code(s): K76.6 - PORTAL HYPERTENSION Assessment/Plan 1. Paroxysmal atrial fibrillation now in sinus rhythm 2. CAD, history of [place], S/P PCI/stent, angina pectoris 3. Sick sinus syndrome S/P PPM ([place] Stitcher) 4. HTN 5. IDDM 6. Hepatic cirrhosis/hepatitis C/ascites/Portal hypertenson/esophageal varices S /P paracentesis 7. History of pleural effusion s/p thoracentesis and chest tube - total opacification of right lung field currently 8. Substance abuse on Methadone, but has used Heroine recently 9. History of B cell lymphoma 10. Thrombocytopenia due to above issues 11. COPD 12. History of GI bleed due to esophageal and gastric varices 13. History of subarrachnoid hemorrhage PLAN: 1. Continue Lopressor 25 mg BID and uptitrate 2. Not an ideal candidate for terminal operator anticoagulation in view of liver disease , esophageal and gastric varices, GI bleed and intracranial bleed. 3. Transthoracic echocardiography is to be repeated 4. Continue Spironolactone as tolerated Prognosis: guarded Further plans are to follow Lui Kumar MD
--- NOTE | 2016-12-13 12:16 | PN ---
Progress Note (short form) - Note Progress Note: PULMONARY CARDIAC CONSULT REVIEWED HR 88 W ECTOPLCS/PPM CAPTURING ANICTERIC IMPROVED B/L BREATH SOUNDS S1S2 IRREG BS+ SOFT NO EDEMA RAPID AF WITH IMPROVEMENT POST 5MG CARDIZEM MULTIPLE MED PROBLEMS LISTED AWAIT CARDIO EVAL BETA-AGONIST HAS BEEN DISCONTINUED Minh GARZA MD
--- NOTE | 2016-12-13 16:18 | PN ---
GI Progress Note Subjective: Patient awake, alert encephalopathy resolved Denies abdominal pain - Objective Vital Signs: Vital Signs Temperature 98.4 F 12/13/16 14:15 Pulse Rate 74 12/13/16 14:15 Respiratory Rate 20 12/13/16 14:15 Blood Pressure 123/71 12/13/16 14:15 O2 Sat by Pulse Oximetry (%) 96 12/13/16 07:40 Constitutional: Calm HENT: Yes: Normocephalic Neck: Yes: Supple Cardiovascular: Yes: Pulse Irregular Respiratory: Yes: CTA Bilaterally Gastrointestinal Inspection: Yes: Ascites ...Auscultate: Yes: Normoactive Bowel Sounds ...Palpate: Yes: Soft (softly distended.) ...Percussion: Yes: Fluid Wave Labs: CBC, BMP 12/13/16 05:45 12/13/16 05:45 INR, PTT INR 1.54 (0.82-1.09) H 12/13/16 05:45 Fibrinogen 171.0 mg/dL (238-498) L 12/11/16 08:20 Assessment/Plan No longer pain or tenderness in area of inguinal hernia. Conservative management for now. Continue lactulose and rifaximin Will see prn
--- NOTE | 2016-12-13 19:18 | PN ---
Progress Note, Physician - Current Medication List Current Medications: Active Medications Furosemide (Lasix -) 40 mg PO DAILY [facility] Last Admin: 12/13/16 09:20 Dose: 40 mg Hydromorphone HCl (Dilaudid Injection -) 0.5 mg IVPB Q6H PRN PRN Reason: PAIN Last Admin: 12/13/16 16:18 Dose: 0.5 mg Insulin Aspart (Novolog Vial Sliding Scale -) 1 vial SQ ACHS [facility] PRN Reason: Protocol Last Admin: 12/13/16 16:36 Dose: Not Given Insulin Detemir (Levemir Vial) 20 units SQ HS [facility] Last Admin: 12/12/16 22:15 Dose: 20 units Insulin Detemir (Levemir Vial) 30 units SQ AM [facility] Last Admin: 12/13/16 06:29 Dose: 30 units Lactulose (Cephulac (Oral Use)) 30 gm PO QID PRN PRN Reason: CONSTIPATION Methadone HCl (Dolophine -) 15 mg PO DAILY@0600 [facility] Last Admin: 12/13/16 06:28 Dose: 15 mg Metoprolol Tartrate (Lopressor -) 25 mg PO BID [facility] Last Admin: 12/13/16 09:20 Dose: 25 mg Pantoprazole Sodium (Protonix -) 40 mg PO DAILY [facility] Last Admin: 12/13/16 09:20 Dose: 40 mg Rifaximin (Xifaxan -) 550 mg PO BID [facility] Last Admin: 12/13/16 09:20 Dose: 550 mg Spironolactone (Aldactone -) 50 mg PO DAILY [facility] Last Admin: 12/13/16 09:20 Dose: 50 mg - Objective Vital Signs: Vital Signs Temperature 98.4 F 12/13/16 14:15 Pulse Rate 74 12/13/16 14:15 Respiratory Rate 20 12/13/16 14:15 Blood Pressure 123/71 12/13/16 14:15 O2 Sat by Pulse Oximetry (%) 96 12/13/16 07:40 Labs: CBC, BMP 12/13/16 05:45 12/13/16 05:45 INR, PTT INR 1.54 (0.82-1.09) H 12/13/16 05:45 Fibrinogen 171.0 mg/dL (238-498) L 12/11/16 08:20 Problem List - Problems (1) Cirrhosis of liver Code(s): K74.60 - UNSPECIFIED CIRRHOSIS OF LIVER Qualifiers: Hepatic cirrhosis type: unspecified hepatic cirrhosis Ascites presence : without ascites Qualified Code(s): K74.60 - Unspecified cirrhosis of liver (2) Type 2 diabetes mellitus with other diabetic neurological complication Code(s): E11.49 - TYPE 2 DIABETES W OTH DIABETIC NEUROLOGICAL COMPLICATION (3) Acute on chronic renal failure Code(s): N17.9 - ACUTE KIDNEY FAILURE, UNSPECIFIED N18.9 - CHRONIC KIDNEY DISEASE, UNSPECIFIED (4) Anxiety Code(s): F41.9 - ANXIETY DISORDER, UNSPECIFIED (5) Ascites Code(s): R18.8 - OTHER ASCITES Qualifiers: Ascites type: due to alcoholic cirrhosis Qualified Code(s): K70.31 - Alcoholic cirrhosis of liver with ascites (6) Diabetes mellitus, insulin dependent (IDDM), uncontrolled Code(s): E10.65 - TYPE 1 DIABETES MELLITUS WITH HYPERGLYCEMIA (7) Esophageal varices Code(s): I85.00 - ESOPHAGEAL VARICES WITHOUT BLEEDING (8) Gastric varix Code(s): I86.4 - GASTRIC VARICES (9) Hepatitis C virus infection Code(s): B19.20 - UNSPECIFIED VIRAL HEPATITIS C WITHOUT HEPATIC COMA (10) Lymphoma Code(s): C85.90 - NON-HODGKIN LYMPHOMA, UNSPECIFIED, UNSPECIFIED SITE (12) Pacemaker Code(s): Z95.0 - PRESENCE OF CARDIAC PACEMAKER (13) Pleural effusion on right Code(s): J90 - PLEURAL EFFUSION, NOT ELSEWHERE CLASSIFIED (14) Thrombocytopenia Code(s): D69.6 - THROMBOCYTOPENIA, UNSPECIFIED (15) Atrial fibrillation with rapid ventricular response Code(s): I48.91 - UNSPECIFIED ATRIAL FIBRILLATION (16) Portal hypertension Code(s): K76.6 - PORTAL HYPERTENSION
[2016-12-13] MEDS ORDERED: INSULIN (NOVOLOG) ASPART 100 UNITS/ML 10ML VIAL ONE (21:05)
[2016-12-14] MEDS: METHADONE HCL 10 MG TABLET PO SCH (06:14)
[2016-12-14] MEDS: INSULIN DETEMIR 100 UNITS/ML MDV SQ SCH ×2 (06:21→21:10)
[2016-12-14] MEDS: INSULIN SLIDING SCALE (NOVOLOG) 1 VIAL SQ SCH ×4 (06:21→21:10)
[2016-12-14 07:16] LABS: BASOPHIL 0.1 % (0-2.0); EOSINOPHIL 0.7 % (0-4.5); MCH 33.2 pg (25.7-33.7); MCHC 35.5 g/dl (32.0-35.9); MEAN CELL VOLUME 93.6 fl (80-96); MEAN PLT VOLUME 9.3 fl (7.5-11.1); NEUTROPHILS 74.4 % (42.8-82.8); PLATELET COUNT 137 K/MM3 (134-434); WHITE BLOOD COUNT 13.2 K/mm3 (4.0-10.0)
[2016-12-14 07:40] LABS: ALBUMIN 2.2 g/dl (3.4-5.0); CALCIUM 8.1 mg/dL (8.5-10.1)
[2016-12-14 07:46] LABS: BILIRUBIN,TOTAL 3.3 mg/dL (0.2-1.0); CREATININE 1.4 mg/dL (0.7-1.3); TROPONIN I 0.06 ng/ml (0.00-0.05)
--- NOTE | 2016-12-14 08:25 | PN ---
Progress Note, Physician History of Present Illness: NO ABDOMINAL PAIN DECREASED APPETITE - Current Medication List Current Medications: Active Medications Furosemide (Lasix -) 40 mg PO DAILY [facility] Last Admin: 12/13/16 09:20 Dose: 40 mg Hydromorphone HCl (Dilaudid Injection -) 0.5 mg IVPB Q6H PRN PRN Reason: PAIN Last Admin: 12/13/16 22:14 Dose: 0.5 mg Insulin Aspart (Novolog Vial Sliding Scale -) 1 vial SQ ACHS [facility] PRN Reason: Protocol Last Admin: 12/14/16 06:21 Dose: Not Given Insulin Detemir (Levemir Vial) 20 units SQ HS [facility] Last Admin: 12/13/16 21:10 Dose: 20 units Insulin Detemir (Levemir Vial) 30 units SQ AM [facility] Last Admin: 12/14/16 06:21 Dose: Not Given Lactulose (Cephulac (Oral Use)) 30 gm PO QID PRN PRN Reason: CONSTIPATION Methadone HCl (Dolophine -) 15 mg PO DAILY@0600 [facility] Last Admin: 12/14/16 06:14 Dose: 15 mg Metoprolol Tartrate (Lopressor -) 25 mg PO BID [facility] Last Admin: 12/13/16 21:10 Dose: 25 mg Pantoprazole Sodium (Protonix -) 40 mg PO DAILY [facility] Last Admin: 12/13/16 09:20 Dose: 40 mg Rifaximin (Xifaxan -) 550 mg PO BID [facility] Last Admin: 12/13/16 21:10 Dose: 550 mg Spironolactone (Aldactone -) 50 mg PO DAILY [facility] Last Admin: 12/13/16 09:20 Dose: 50 mg - Objective Vital Signs: Vital Signs Temperature 97.0 F L 12/14/16 06:00 Pulse Rate 85 12/14/16 06:00 Respiratory Rate 20 12/14/16 06:00 Blood Pressure 128/80 12/14/16 06:00 O2 Sat by Pulse Oximetry (%) 93 L 12/13/16 21:00 Cardiovascular: Yes: S1, S2 Respiratory: Yes: Regular, CTA Bilaterally Gastrointestinal: Yes: Normal Bowel Sounds, Soft Labs: CBC, BMP 12/14/16 05:35 12/14/16 05:35 INR, PTT INR 1.54 (0.82-1.09) H 12/13/16 05:45 Fibrinogen 171.0 mg/dL (238-498) L 12/11/16 08:20 Problem List - Problems (1) Hyperglycemia Code(s): R73.9 - HYPERGLYCEMIA, UNSPECIFIED (2) Diabetes mellitus, insulin dependent (IDDM), uncontrolled Code(s): E10.65 - TYPE 1 DIABETES MELLITUS WITH HYPERGLYCEMIA (3) Cirrhosis of liver Code(s): K74.60 - UNSPECIFIED CIRRHOSIS OF LIVER Qualifiers: Qualified Code(s): K74.60 - Unspecified cirrhosis of liver (4) CKD (chronic kidney disease) Code(s): N18.9 - CHRONIC KIDNEY DISEASE, UNSPECIFIED Qualifiers: (5) Lymphoma Code(s): C85.90 - NON-HODGKIN LYMPHOMA, UNSPECIFIED, UNSPECIFIED SITE (6) Thrombocytopenia Code(s): D69.6 - THROMBOCYTOPENIA, UNSPECIFIED (7) Progressive anemia Code(s): D64.9 - ANEMIA, UNSPECIFIED (8) Right inguinal hernia Code(s): K40.90 - UNIL INGUINAL HERNIA, W/O OBST OR GANGR, NOT SPCF RECUR (9) Radiculopathy Code(s): M54.10 - RADICULOPATHY, SITE UNSPECIFIED Assessment/Plan 1) Hyperglycemia Assessment/Plan: Laboratory Tests 12/13/16 12/13/16 12/13/16 11:29 16:30 21:09 POC Glucometer 141 169 179 12/14/16 06:17 POC Glucometer 73 BETTER INSULIN ENDO Code(s): R73.9 - HYPERGLYCEMIA, UNSPECIFIED (2) Diabetes mellitus, insulin dependent (IDDM), uncontrolled Assessment/Plan: ABOVE Code(s): E10.65 - TYPE 1 DIABETES MELLITUS WITH HYPERGLYCEMIA (3) Cirrhosis of liver Assessment/Plan: GI CONSULTED INR 1.5 -> F/U AMMONIA 40 -> F/U F/U Code(s): K74.60 - UNSPECIFIED CIRRHOSIS OF LIVER Qualifiers: Hepatic cirrhosis type: unspecified hepatic cirrhosis Ascites presence : without ascites Qualified Code(s): K74.60 - Unspecified cirrhosis of liver (4) CKD (chronic kidney disease) Code(s): N18.9 - CHRONIC KIDNEY DISEASE, UNSPECIFIED Qualifiers: (5) Lymphoma Assessment/Plan: ONC ON CASE Code(s): C85.90 - NON-HODGKIN LYMPHOMA, UNSPECIFIED, UNSPECIFIED SITE (6) Thrombocytopenia Assessment/Plan: MONITOR PLT Laboratory Tests 12/12/16 12/13/16 12/14/16 11:19 05:45 05:35 Plt Count 80 L D 73 L 137 D > F/U Code(s): D69.6 - THROMBOCYTOPENIA, UNSPECIFIED (7) Progressive anemia Assessment/Plan: FOLLOW LABS W/U ORDERED Code(s): D64.9 - ANEMIA, UNSPECIFIED (8) Right inguinal hernia Assessment/Plan: NOT SURE IF PAIN RELATED TO HERNIA VS RADICULPATHY PT HIGH RISK FOR ANY PROCEDURE SURGERY F/U SINCE PLAT BETTER Code(s): K40.90 - UNIL INGUINAL HERNIA, W/O OBST OR GANGR, NOT SPCF RECUR (9) Radiculopathy Assessment/Plan: PT EMG CT SCAN DILUADID WITH CAUTION NEURO Code(s): M54.10 - RADICULOPATHY, SITE UNSPECIFIED (8) Chest pain on breathing Code(s): R07.1 - CHEST PAIN ON BREATHING CASE D/W HOSPITALIST CARDIO ON CASE CPK NEG TROP INCed -> F/U (9) Opiate dependence Code(s): F11.20 - OPIOID DEPENDENCE, UNCOMPLICATED Qualifiers: Substance use status: with unspecified opioid-induced disorder Qualified Code(s): F11.29 - Opioid dependence with unspecified opioid-induced disorder ADDICTION Rx ON CASE SNIFFING HEROIN DURING THIS ADMISSION MMTP 10 -> 15 DAILY
--- NOTE | 2016-12-14 08:27 | PN ---
Progress Note (short form) - Note Progress Note: Patient seen and examined ROS No diplopia, epistaxis, dysphagia, chest pain, SOB, nausea, emesis, diarrhea, constipation. dysuria, hematuria Complains of distal lower extremity pains on RLE Last Vital Signs Temp Pulse Resp BP Pulse Ox 97.0 F L 85 20 128/80 93 L 12/14/16 06:00 12/14/16 06:00 12/14/16 06:00 12/14/16 06:00 12/13/16 21:00 HEENT: ANNABEL, EOM Intact Oropharynx: No thrush, No mucositis Cor: RSR, No murmurs, No gallops Lungs: Diminished breath sounds RLL Abd: Soft, ascites, umbilical hernia right inguinal hernia, uncircumcised male Ext:1-2+ LE edema Skin:stasis LE's CBC, BMP 12/14/16 05:35 12/14/16 05:35 INR, PTT INR 1.54 (0.82-1.09) H 12/13/16 05:45 Fibrinogen 171.0 mg/dL (238-498) L 12/11/16 08:20 Impression: Hepatic Encephalopathy- improved LE pains__ neuropathy Hepatitis C Cirrhosis 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 If indeed they are at this level, now might offer a window of opportunity to operate on hernias if coagulation could be corrected. ( Would require FFP and croppt to correct INR and fibrinogen. Will request repeat studies.
[2016-12-14] MEDS: RIFAXIMIN 550 MG TABLET (UD) PO SCH ×2 (09:15→21:02)
[2016-12-14] MEDS: SPIRONOLACTONE 25 MG TABLET (FP) PO SCH (09:15)
[2016-12-14] MEDS: PANTOPRAZOLE 40 MG TABLET (FP) PO SCH (09:15)
[2016-12-14] MEDS: HYDROmorphone HCL CARPU-JECT 1 MG/1 ML DISP.SYRIN IVPB PRN ×3 (09:15→21:01)
[2016-12-14] MEDS: FUROSEMIDE 40 MG TABLET (FP) PO SCH (09:15)
[2016-12-14] MEDS: METOPROLOL TARTRATE 25 MG TABLET (FP) PO SCH ×2 (09:15→21:02)
--- NOTE | 2016-12-14 09:42 | PN ---
Progress Note, Physician Chief Complaint: Feels better Remains in sinus rhythm Right lower extremity numbness persists, but better History of Present Illness: Patient was seen and examined. Awake and alert. Chart was reviewed Denies chest pain, SOB or palpitation - Current Medication List Current Medications: Active Medications Furosemide (Lasix -) 40 mg PO DAILY [facility] Last Admin: 12/14/16 09:15 Dose: 40 mg Hydromorphone HCl (Dilaudid Injection -) 0.5 mg IVPB Q6H PRN PRN Reason: PAIN Last Admin: 12/14/16 09:15 Dose: 0.5 mg Insulin Aspart (Novolog Vial Sliding Scale -) 1 vial SQ ACHS [facility] PRN Reason: Protocol Last Admin: 12/14/16 06:21 Dose: Not Given Insulin Detemir (Levemir Vial) 20 units SQ HS [facility] Last Admin: 12/13/16 21:10 Dose: 20 units Insulin Detemir (Levemir Vial) 30 units SQ AM [facility] Last Admin: 12/14/16 06:21 Dose: Not Given Lactulose (Cephulac (Oral Use)) 30 gm PO QID PRN PRN Reason: CONSTIPATION Methadone HCl (Dolophine -) 15 mg PO DAILY@0600 [facility] Last Admin: 12/14/16 06:14 Dose: 15 mg Metoprolol Tartrate (Lopressor -) 25 mg PO BID [facility] Last Admin: 12/14/16 09:15 Dose: 25 mg Pantoprazole Sodium (Protonix -) 40 mg PO DAILY [facility] Last Admin: 12/14/16 09:15 Dose: 40 mg Rifaximin (Xifaxan -) 550 mg PO BID [facility] Last Admin: 12/14/16 09:15 Dose: 550 mg Spironolactone (Aldactone -) 50 mg PO DAILY [facility] Last Admin: 12/14/16 09:15 Dose: 50 mg - Objective Vital Signs: Vital Signs Temperature 97.0 F L 12/14/16 06:00 Pulse Rate 85 12/14/16 06:00 Respiratory Rate 20 12/14/16 06:00 Blood Pressure 128/80 12/14/16 06:00 O2 Sat by Pulse Oximetry (%) 93 L 12/13/16 21:00 Neck: Yes: Supple Cardiovascular: Yes: Regular Rate and Rhythm, S1, S2 Respiratory: Yes: Diminished (Right lung field opacified) Gastrointestinal: Yes: Normal Bowel Sounds, Soft. No: Tenderness Edema: No Additional Findings/Remarks: - Review of Systems Constitutional: denies: Chills, Fever Cardiovascular: reports: Chest Pain, Palpitations, Shortness of Breath Respiratory: reports: SOB. denies: Cough, Hemoptysis, Orthopnea, PND Gastrointestinal: reports: Other (acities). denies: Abdominal Pain, Constipation, Diarrhea, Melena, Nausea, Rectal Bleeding, Vomiting Musculoskeletal: reports: Joint Pain Neurological: reports: Numbness. denies: Dizziness, Headache, Seizure, Syncope Labs: CBC, BMP 12/14/16 05:35 12/14/16 05:35 INR, PTT INR 1.54 (0.82-1.09) H 12/13/16 05:45 Fibrinogen 171.0 mg/dL (238-498) L 12/11/16 08:20 Problem List - Problems (1) Cirrhosis of liver Code(s): K74.60 - UNSPECIFIED CIRRHOSIS OF LIVER Qualifiers: Hepatic cirrhosis type: unspecified hepatic cirrhosis Ascites presence : without ascites Qualified Code(s): K74.60 - Unspecified cirrhosis of liver (2) Type 2 diabetes mellitus with other diabetic neurological complication Code(s): E11.49 - TYPE 2 DIABETES [facility] DIABETIC NEUROLOGICAL COMPLICATION (3) Acute on chronic renal failure Code(s): N17.9 - ACUTE KIDNEY FAILURE, UNSPECIFIED N18.9 - CHRONIC KIDNEY DISEASE, UNSPECIFIED (4) Anxiety Code(s): F41.9 - ANXIETY DISORDER, UNSPECIFIED (5) Ascites Code(s): R18.8 - OTHER ASCITES Qualifiers: Ascites type: due to alcoholic cirrhosis Qualified Code(s): K70.31 - Alcoholic cirrhosis of liver with ascites (6) Diabetes mellitus, insulin dependent (IDDM), uncontrolled Code(s): E10.65 - TYPE 1 DIABETES MELLITUS WITH HYPERGLYCEMIA (7) Esophageal varices Code(s): I85.00 - ESOPHAGEAL VARICES WITHOUT BLEEDING (8) Gastric varix Code(s): I86.4 - GASTRIC VARICES (9) Hepatitis C virus infection Code(s): B19.20 - UNSPECIFIED VIRAL HEPATITIS C WITHOUT HEPATIC COMA Qualifiers: Viral hepatitis chronicity: chronic Hepatic coma status: without hepatic coma Qualified Code(s): B18.2 - Chronic viral hepatitis C (10) Lymphoma Code(s): C85.90 - NON-HODGKIN LYMPHOMA, UNSPECIFIED, UNSPECIFIED SITE (12) Pacemaker Code(s): Z95.0 - PRESENCE OF CARDIAC PACEMAKER (13) Pleural effusion on right Code(s): J90 - PLEURAL EFFUSION, NOT ELSEWHERE CLASSIFIED (14) Thrombocytopenia Code(s): D69.6 - THROMBOCYTOPENIA, UNSPECIFIED (15) Atrial fibrillation with rapid ventricular response Code(s): I48.91 - UNSPECIFIED ATRIAL FIBRILLATION (16) Portal hypertension Code(s): K76.6 - PORTAL HYPERTENSION Assessment/Plan 1. Paroxysmal atrial fibrillation now in sinus rhythm 2. CAD, history of [place], S/P PCI/stent, angina pectoris 3. Sick sinus syndrome S/P PPM ([employer]) 4. HTN 5. IDDM 6. Hepatic cirrhosis/hepatitis C/ascites/Portal hypertenson/esophageal varices S /P paracentesis 7. History of pleural effusion s/p thoracentesis and chest tube - total opacification of right lung field currently 8. Substance abuse on Methadone, but has used Heroine recently 9. History of B cell lymphoma 10. Thrombocytopenia due to above issues 11. COPD 12. History of GI bleed due to esophageal and gastric varices 13. History of subarrachnoid hemorrhage PLAN: 1. Continue Lopressor 25 mg BID and uptitrate 2. Not an ideal candidate for senior care anticoagulation in view of liver disease , esophageal and gastric varices, GI bleed and intracranial bleed. 3. Transthoracic echocardiography is to be repeated 4. Continue Spironolactone as tolerated 5. Pulmonary input noted. Possible thoracentesis Prognosis: guarded Further plans are to follow Lui Kumar MD
--- NOTE | 2016-12-14 10:01 | PN ---
Progress Note, Physician History of Present Illness: pulmonary alert,feeling better,-sob,-cp,-cough - Current Medication List Current Medications: Active Medications Furosemide (Lasix -) 40 mg PO DAILY [facility] Last Admin: 12/14/16 09:15 Dose: 40 mg Hydromorphone HCl (Dilaudid Injection -) 0.5 mg IVPB Q6H PRN PRN Reason: PAIN Last Admin: 12/14/16 09:15 Dose: 0.5 mg Insulin Aspart (Novolog Vial Sliding Scale -) 1 vial SQ ACHS [facility] PRN Reason: Protocol Last Admin: 12/14/16 06:21 Dose: Not Given Insulin Detemir (Levemir Vial) 20 units SQ HS [facility] Last Admin: 12/13/16 21:10 Dose: 20 units Insulin Detemir (Levemir Vial) 30 units SQ AM [facility] Last Admin: 12/14/16 06:21 Dose: Not Given Lactulose (Cephulac (Oral Use)) 30 gm PO QID PRN PRN Reason: CONSTIPATION Methadone HCl (Dolophine -) 15 mg PO DAILY@0600 [facility] Last Admin: 12/14/16 06:14 Dose: 15 mg Metoprolol Tartrate (Lopressor -) 25 mg PO BID [facility] Last Admin: 12/14/16 09:15 Dose: 25 mg Pantoprazole Sodium (Protonix -) 40 mg PO DAILY [facility] Last Admin: 12/14/16 09:15 Dose: 40 mg Rifaximin (Xifaxan -) 550 mg PO BID [facility] Last Admin: 12/14/16 09:15 Dose: 550 mg Spironolactone (Aldactone -) 50 mg PO DAILY [facility] Last Admin: 12/14/16 09:15 Dose: 50 mg - Objective Vital Signs: Vital Signs Temperature 97.0 F L 12/14/16 06:00 Pulse Rate 85 12/14/16 06:00 Respiratory Rate 20 12/14/16 06:00 Blood Pressure 128/80 12/14/16 06:00 O2 Sat by Pulse Oximetry (%) 93 L 12/13/16 21:00 Constitutional: Yes: Well Nourished, Calm Eyes: Yes: WNL HENT: Yes: WNL Neck: Yes: WNL Cardiovascular: Yes: Regular Rate and Rhythm, S1, S2 Respiratory: Yes: Diminished (DIMINISHED BS ON R) Gastrointestinal: Yes: WNL Extremities: Yes: WNL Edema: No Labs: CBC, BMP 12/14/16 05:35 12/14/16 05:35 INR, PTT INR 1.54 (0.82-1.09) H 12/13/16 05:45 Fibrinogen 171.0 mg/dL (238-498) L 12/11/16 08:20 - ....Imaging Chest X-ray: Report Reviewed, Image Reviewed (complete opacification r hemithorax) Assessment/Plan Problem List - Problems (1) Cirrhosis of liver Code(s): K74.60 - UNSPECIFIED CIRRHOSIS OF LIVER Qualifiers: Hepatic cirrhosis type: unspecified hepatic cirrhosis Ascites presence : without ascites Qualified Code(s): K74.60 - Unspecified cirrhosis of liver (2) Type 2 diabetes mellitus with other diabetic neurological complication Code(s): E11.49 - TYPE 2 DIABETES [facility] DIABETIC NEUROLOGICAL COMPLICATION (3) Acute on chronic renal failure Code(s): N17.9 - ACUTE KIDNEY FAILURE, UNSPECIFIED N18.9 - CHRONIC KIDNEY DISEASE, UNSPECIFIED (4) Anxiety Code(s): F41.9 - ANXIETY DISORDER, UNSPECIFIED (5) Ascites Code(s): R18.8 - OTHER ASCITES Qualifiers: Ascites type: due to alcoholic cirrhosis Qualified Code(s): K70.31 - Alcoholic cirrhosis of liver with ascites (6) Diabetes mellitus, insulin dependent (IDDM), uncontrolled Code(s): E10.65 - TYPE 1 DIABETES MELLITUS WITH HYPERGLYCEMIA (7) Esophageal varices Code(s): I85.00 - ESOPHAGEAL VARICES WITHOUT BLEEDING (8) Gastric varix Code(s): I86.4 - GASTRIC VARICES (9) Hepatitis C virus infection Code(s): B19.20 - UNSPECIFIED VIRAL HEPATITIS C WITHOUT HEPATIC COMA (10) Lymphoma Code(s): C85.90 - NON-HODGKIN LYMPHOMA, UNSPECIFIED, UNSPECIFIED SITE (12) Pacemaker Code(s): Z95.0 - PRESENCE OF CARDIAC PACEMAKER (13) Pleural effusion on right Code(s): J90 - PLEURAL EFFUSION, NOT ELSEWHERE CLASSIFIED (14) Thrombocytopenia Code(s): D69.6 - THROMBOCYTOPENIA, UNSPECIFIED (15) Atrial fibrillation with rapid ventricular response Code(s): I48.91 - UNSPECIFIED ATRIAL FIBRILLATION (16) Portal hypertension Code(s): K76.6 - PORTAL HYPERTENSION Assessment/Plan 1. Atrial fibrillation with rapid ventricular response currently in nsr 2. CAD S/P [place], S/P PCI/stent, angina pectoris 3. S/P PPM 4. HTN 5. IDDM 6. Hepatic cirrhosis/hepatitis C/ascites/Portal hypertenson/esophageal varices S /P paracentesis 7. History of pleural effusion 8. Substance abuse on Methadone 9. History of B cell lymphoma 10. Thrombocytopenia 11. COPD 12. History of GI bleed due to esophageal and gastric varices 13. History of sub-arrachnoid hemorrhage PLAN: 1. rate control 2. Not an ideal candidate for superintendent container terminal anticoagulation in view of liver disease , esophageal and gastric varices, GI bleed and intracranial bleed. 3. Transthoracic echocardiography 4. Continue Spironolactone 5.repeat chest x-ray if no change thoracentesis DR TAY
[2016-12-14] MEDS: LACTULOSE 20 GM/30 ML UDC (FOR ORAL USE ONLY) PO PRN (21:04)
[2016-12-15] MEDS: HYDROmorphone HCL CARPU-JECT 1 MG/1 ML DISP.SYRIN IVPB PRN ×2 (04:15→09:57)
[2016-12-15] MEDS: INSULIN DETEMIR 100 UNITS/ML MDV SQ SCH ×2 (06:36→22:41)
[2016-12-15] MEDS: METHADONE HCL 10 MG TABLET PO SCH (06:36)
[2016-12-15] MEDS: INSULIN SLIDING SCALE (NOVOLOG) 1 VIAL SQ SCH ×4 (06:45→22:41)
[2016-12-15 07:14] LABS: BASOPHIL 0.2 % (0-2.0); EOSINOPHIL 1.3 % (0-4.5); MCH 33.7 pg (25.7-33.7); MCHC 35.1 g/dl (32.0-35.9); MEAN CELL VOLUME 96.2 fl (80-96); NEUTROPHILS 70.6 % (42.8-82.8); PLATELET COUNT 82 K/MM3 (134-434); RDW 16.4 % (11.9-15.9); WHITE BLOOD COUNT 6.7 K/mm3 (4.0-10.0)
[2016-12-15 07:45] LABS: INR 1.42 (0.82-1.09); PROTHROMBIN TIME (PATIENT) 15.7 SEC (9.98-11.88)
[2016-12-15 07:48] LABS: ACTIVATED PTT 32.4 SECONDS (26.9-34.4)
[2016-12-15 08:22] LABS: ALBUMIN 2.1 g/dl (3.4-5.0); BILIRUBIN,TOTAL 1.8 mg/dL (0.2-1.0); CALCIUM 7.5 mg/dL (8.5-10.1); CREATININE 1.5 mg/dL (0.7-1.3); TOT PROT 7.6 g/dl (6.4-8.2)
--- NOTE | 2016-12-15 08:25 | PN ---
Progress Note, Physician - Current Medication List Current Medications: Active Medications Furosemide (Lasix -) 40 mg PO DAILY [facility] Last Admin: 12/14/16 09:15 Dose: 40 mg Hydromorphone HCl (Dilaudid Injection -) 0.5 mg IVPB Q6H PRN PRN Reason: PAIN Last Admin: 12/15/16 04:15 Dose: 0.5 mg Insulin Aspart (Novolog Vial Sliding Scale -) 1 vial SQ ACHS [facility] PRN Reason: Protocol Last Admin: 12/15/16 06:45 Dose: 5 units Insulin Detemir (Levemir Vial) 20 units SQ HS [facility] Last Admin: 12/14/16 21:10 Dose: 20 units Insulin Detemir (Levemir Vial) 30 units SQ AM [facility] Last Admin: 12/15/16 06:36 Dose: 30 units Lactulose (Cephulac (Oral Use)) 30 gm PO QID PRN PRN Reason: CONSTIPATION Last Admin: 12/14/16 21:04 Dose: 30 gm Methadone HCl (Dolophine -) 15 mg PO DAILY@0600 [facility] Last Admin: 12/15/16 06:36 Dose: 15 mg Metoprolol Tartrate (Lopressor -) 25 mg PO BID [facility] Last Admin: 12/14/16 21:02 Dose: 25 mg Pantoprazole Sodium (Protonix -) 40 mg PO DAILY [facility] Last Admin: 12/14/16 09:15 Dose: 40 mg Rifaximin (Xifaxan -) 550 mg PO BID [facility] Last Admin: 12/14/16 21:02 Dose: 550 mg Spironolactone (Aldactone -) 50 mg PO DAILY [facility] Last Admin: 12/14/16 09:15 Dose: 50 mg - Objective Vital Signs: Vital Signs Temperature 97.5 F L 12/15/16 02:00 Pulse Rate 72 12/15/16 06:00 Respiratory Rate 20 12/15/16 06:00 Blood Pressure 155/77 12/15/16 06:00 O2 Sat by Pulse Oximetry (%) 97 12/14/16 21:00 Cardiovascular: Yes: Regular Rate and Rhythm Respiratory: Yes: Regular, CTA Bilaterally Gastrointestinal: Yes: Normal Bowel Sounds, Soft, Ascites Labs: CBC, BMP 12/15/16 05:35 12/15/16 05:35 INR, PTT INR 1.42 (0.82-1.09) H 12/15/16 05:35 Fibrinogen 295.0 mg/dL (238-498) D 12/15/16 05:35 Problem List - Problems (1) Hyperglycemia Assessment/Plan: IVF INSULIN ENDO Code(s): R73.9 - HYPERGLYCEMIA, UNSPECIFIED (2) Diabetes mellitus, insulin dependent (IDDM), uncontrolled Assessment/Plan: ABOVE Code(s): E10.65 - TYPE 1 DIABETES MELLITUS WITH HYPERGLYCEMIA (3) Cirrhosis of liver Assessment/Plan: GI CONSULT NOTED Code(s): K74.60 - UNSPECIFIED CIRRHOSIS OF LIVER Qualifiers: Hepatic cirrhosis type: unspecified hepatic cirrhosis Ascites presence : without ascites Qualified Code(s): K74.60 - Unspecified cirrhosis of liver (4) CKD (chronic kidney disease) Code(s): N18.9 - CHRONIC KIDNEY DISEASE, UNSPECIFIED Qualifiers: (5) Lymphoma Assessment/Plan: ONC ON CASE Code(s): C85.90 - NON-HODGKIN LYMPHOMA, UNSPECIFIED, UNSPECIFIED SITE (6) Thrombocytopenia Assessment/Plan: MONITOR --IMPOROVED Code(s): D69.6 - THROMBOCYTOPENIA, UNSPECIFIED (7) Progressive anemia Code(s): D64.9 - ANEMIA, UNSPECIFIED (8) Right inguinal hernia Assessment/Plan: N\ GI/SURGERY--F/U SINCE PLAT IMPROVED Code(s): K40.90 - UNIL INGUINAL HERNIA, W/O OBST OR GANGR, NOT SPCF RECUR (9) Radiculopathy Assessment/Plan: PT EMG CT SCAN DILUADID WITH CAUTION NEURO Code(s): M54.10 - RADICULOPATHY, SITE UNSPECIFIED (10) Ascites Assessment/Plan: PARACENTESIS Code(s): R18.8 - OTHER ASCITES Qualifiers: Ascites type: due to alcoholic cirrhosis Qualified Code(s): K70.31 - Alcoholic cirrhosis of liver with ascites (11) Pleural effusion Assessment/Plan: TAP FOR TODAY Code(s): J90 - PLEURAL EFFUSION, NOT ELSEWHERE CLASSIFIED
--- NOTE | 2016-12-15 09:15 | PN ---
Progress Note, Physician Chief Complaint: Feels better Remains in sinus rhythm History of Present Illness: Patient was seen and examined. Awake and alert. Chart was reviewed Denies chest pain, SOB or palpitation Await thoracentesis - Current Medication List Current Medications: Active Medications Furosemide (Lasix -) 40 mg PO DAILY [facility] Last Admin: 12/14/16 09:15 Dose: 40 mg Hydromorphone HCl (Dilaudid Injection -) 0.5 mg IVPB Q6H PRN PRN Reason: PAIN Last Admin: 12/15/16 04:15 Dose: 0.5 mg Insulin Aspart (Novolog Vial Sliding Scale -) 1 vial SQ ACHS [facility] PRN Reason: Protocol Last Admin: 12/15/16 06:45 Dose: 5 units Insulin Detemir (Levemir Vial) 20 units SQ HS [facility] Last Admin: 12/14/16 21:10 Dose: 20 units Insulin Detemir (Levemir Vial) 30 units SQ AM [facility] Last Admin: 12/15/16 06:36 Dose: 30 units Lactulose (Cephulac (Oral Use)) 30 gm PO QID PRN PRN Reason: CONSTIPATION Last Admin: 12/14/16 21:04 Dose: 30 gm Methadone HCl (Dolophine -) 15 mg PO DAILY@0600 [facility] Last Admin: 12/15/16 06:36 Dose: 15 mg Metoprolol Tartrate (Lopressor -) 25 mg PO BID [facility] Last Admin: 12/14/16 21:02 Dose: 25 mg Pantoprazole Sodium (Protonix -) 40 mg PO DAILY [facility] Last Admin: 12/14/16 09:15 Dose: 40 mg Rifaximin (Xifaxan -) 550 mg PO BID [facility] Last Admin: 12/14/16 21:02 Dose: 550 mg Spironolactone (Aldactone -) 50 mg PO DAILY [facility] Last Admin: 12/14/16 09:15 Dose: 50 mg - Objective Vital Signs: Vital Signs Temperature 97.8 F 12/15/16 08:49 Pulse Rate 74 12/15/16 08:49 Respiratory Rate 20 12/15/16 08:56 Blood Pressure 139/73 12/15/16 08:49 O2 Sat by Pulse Oximetry (%) 97 12/14/16 21:00 Neck: Yes: Supple Cardiovascular: Yes: Regular Rate and Rhythm, S1, S2 Respiratory: Yes: Diminished ((right lung opacification)) Gastrointestinal: Yes: Normal Bowel Sounds, Ascites, Distention. No: Tenderness Edema: No Additional Findings/Remarks: - Review of Systems Constitutional: denies: Chills, Fever Cardiovascular: reports: Chest Pain, Palpitations, Shortness of Breath Respiratory: reports: SOB. denies: Cough, Hemoptysis, Orthopnea, PND Gastrointestinal: reports: Other (acities). denies: Abdominal Pain, Constipation, Diarrhea, Melena, Nausea, Rectal Bleeding, Vomiting Musculoskeletal: reports: Joint Pain Neurological: reports: Numbness. denies: Dizziness, Headache, Seizure, Syncope Labs: CBC, BMP 12/15/16 05:35 12/15/16 05:35 INR, PTT INR 1.42 (0.82-1.09) H 12/15/16 05:35 Fibrinogen 295.0 mg/dL (238-498) D 12/15/16 05:35 Problem List - Problems (1) Cirrhosis of liver Code(s): K74.60 - UNSPECIFIED CIRRHOSIS OF LIVER Qualifiers: Hepatic cirrhosis type: unspecified hepatic cirrhosis Ascites presence : without ascites Qualified Code(s): K74.60 - Unspecified cirrhosis of liver (2) Type 2 diabetes mellitus with other diabetic neurological complication Code(s): E11.49 - TYPE 2 DIABETES [facility] DIABETIC NEUROLOGICAL COMPLICATION (3) Acute on chronic renal failure Code(s): N17.9 - ACUTE KIDNEY FAILURE, UNSPECIFIED N18.9 - CHRONIC KIDNEY DISEASE, UNSPECIFIED (4) Anxiety Code(s): F41.9 - ANXIETY DISORDER, UNSPECIFIED (5) Ascites Code(s): R18.8 - OTHER ASCITES Qualifiers: Ascites type: due to alcoholic cirrhosis Qualified Code(s): K70.31 - Alcoholic cirrhosis of liver with ascites (6) Diabetes mellitus, insulin dependent (IDDM), uncontrolled Code(s): E10.65 - TYPE 1 DIABETES MELLITUS WITH HYPERGLYCEMIA Qualifiers: Diabetes mellitus complication status: without complication Qualified Code(s): E10.9 - Type 1 diabetes mellitus without complications (7) Esophageal varices Code(s): I85.00 - ESOPHAGEAL VARICES WITHOUT BLEEDING Qualifiers: Esophageal varices type: secondary Esophageal varices bleeding: without bleeding Qualified Code(s): I85.10 - Secondary esophageal varices without bleeding (8) Gastric varix Code(s): I86.4 - GASTRIC VARICES (9) Hepatitis C virus infection Code(s): B19.20 - UNSPECIFIED VIRAL HEPATITIS C WITHOUT HEPATIC COMA Qualifiers: Viral hepatitis chronicity: chronic Hepatic coma status: without hepatic coma Qualified Code(s): B18.2 - Chronic viral hepatitis C (10) Lymphoma Code(s): C85.90 - NON-HODGKIN LYMPHOMA, UNSPECIFIED, UNSPECIFIED SITE (12) Pacemaker Code(s): Z95.0 - PRESENCE OF CARDIAC PACEMAKER (13) Pleural effusion on right Code(s): J90 - PLEURAL EFFUSION, NOT ELSEWHERE CLASSIFIED (14) Thrombocytopenia Code(s): D69.6 - THROMBOCYTOPENIA, UNSPECIFIED (15) Atrial fibrillation with rapid ventricular response Code(s): I48.91 - UNSPECIFIED ATRIAL FIBRILLATION (16) Portal hypertension Code(s): K76.6 - PORTAL HYPERTENSION Assessment/Plan 1. Paroxysmal atrial fibrillation now in sinus rhythm 2. CAD, history of VA, S/P PCI/stent, angina pectoris 3. Sick sinus syndrome S/P PPM ([employer]) 4. HTN 5. IDDM 6. Hepatic cirrhosis/hepatitis C/ascites/Portal hypertenson/esophageal varices S /P paracentesis 7. History of pleural effusion s/p thoracentesis and chest tube - total opacification of right lung field currently 8. Substance abuse on Methadone, but has used Heroine recently 9. History of B cell lymphoma 10. Thrombocytopenia due to above issues 11. COPD 12. History of GI bleed due to esophageal and gastric varices 13. History of subarrachnoid hemorrhage PLAN: 1. Continue Lopressor 25 mg BID and uptitrate 2. Not an ideal candidate for terminal clerk anticoagulation in view of liver disease , esophageal and gastric varices, GI bleed and intracranial bleed. 3. Transthoracic echocardiography is to be repeated 4. Continue Spironolactone as tolerated 5. Pulmonary input noted. Await thoracentesis Prognosis: guarded Further plans are to follow Lui Kumar MD
[2016-12-15] MEDS: FUROSEMIDE 40 MG TABLET (FP) PO SCH (09:44)
[2016-12-15] MEDS: RIFAXIMIN 550 MG TABLET (UD) PO SCH ×2 (09:44→22:49)
[2016-12-15] MEDS: PANTOPRAZOLE 40 MG TABLET (FP) PO SCH (09:44)
[2016-12-15] MEDS: METOPROLOL TARTRATE 25 MG TABLET (FP) PO SCH ×2 (09:45→22:41)
[2016-12-15] MEDS: SPIRONOLACTONE 25 MG TABLET (FP) PO SCH (09:46)
--- NOTE | 2016-12-15 10:36 | PN ---
Progress Note, Physician History of Present Illness: PULMONARY ALERT,+WARD,-CP - Current Medication List Current Medications: Active Medications Furosemide (Lasix -) 40 mg PO DAILY [facility] Last Admin: 12/15/16 09:44 Dose: 40 mg Insulin Aspart (Novolog Vial Sliding Scale -) 1 vial SQ ACHS [facility] PRN Reason: Protocol Last Admin: 12/15/16 06:45 Dose: 5 units Insulin Detemir (Levemir Vial) 20 units SQ HS [facility] Last Admin: 12/14/16 21:10 Dose: 20 units Insulin Detemir (Levemir Vial) 30 units SQ AM [facility] Last Admin: 12/15/16 06:36 Dose: 30 units Lactulose (Cephulac (Oral Use)) 30 gm PO QID PRN PRN Reason: CONSTIPATION Last Admin: 12/14/16 21:04 Dose: 30 gm Methadone HCl (Dolophine -) 15 mg PO DAILY@0600 [facility] Last Admin: 12/15/16 06:36 Dose: 15 mg Metoprolol Tartrate (Lopressor -) 25 mg PO BID [facility] Last Admin: 12/15/16 09:45 Dose: 25 mg Pantoprazole Sodium (Protonix -) 40 mg PO DAILY [facility] Last Admin: 12/15/16 09:44 Dose: 40 mg Rifaximin (Xifaxan -) 550 mg PO BID [facility] Last Admin: 12/15/16 09:44 Dose: 550 mg Spironolactone (Aldactone -) 50 mg PO DAILY [facility] Last Admin: 12/15/16 09:46 Dose: 50 mg - Objective Vital Signs: Vital Signs Temperature 97.8 F 12/15/16 08:49 Pulse Rate 74 12/15/16 08:49 Respiratory Rate 20 12/15/16 08:56 Blood Pressure 139/73 12/15/16 08:49 O2 Sat by Pulse Oximetry (%) 97 12/14/16 21:00 Constitutional: Yes: Calm, Thin Eyes: Yes: WNL HENT: Yes: WNL Cardiovascular: Yes: Pulse Irregular, S1, S2 Respiratory: Yes: Diminished (DIMINISHED BS ON R) Gastrointestinal: Yes: Normal Bowel Sounds, Soft, Ascites Extremities: Yes: WNL Edema: No Labs: CBC, BMP 12/15/16 05:35 12/15/16 05:35 INR, PTT INR 1.42 (0.82-1.09) H 12/15/16 05:35 Fibrinogen 295.0 mg/dL (238-498) D 12/15/16 05:35 - ....Imaging Chest X-ray: Report Reviewed, Image Reviewed (NO CHANGE COMPLETE OPACIFICATION R HEMITHORAX) Assessment/Plan Problem List - Problems (1) Cirrhosis of liver Code(s): K74.60 - UNSPECIFIED CIRRHOSIS OF LIVER Qualifiers: Hepatic cirrhosis type: unspecified hepatic cirrhosis Ascites presence : without ascites Qualified Code(s): K74.60 - Unspecified cirrhosis of liver (2) Type 2 diabetes mellitus with other diabetic neurological complication Code(s): E11.49 - TYPE 2 DIABETES [facility] DIABETIC NEUROLOGICAL COMPLICATION (3) Acute on chronic renal failure Code(s): N17.9 - ACUTE KIDNEY FAILURE, UNSPECIFIED N18.9 - CHRONIC KIDNEY DISEASE, UNSPECIFIED (4) Anxiety Code(s): F41.9 - ANXIETY DISORDER, UNSPECIFIED (5) Ascites Code(s): R18.8 - OTHER ASCITES Qualifiers: Ascites type: due to alcoholic cirrhosis Qualified Code(s): K70.31 - Alcoholic cirrhosis of liver with ascites (6) Diabetes mellitus, insulin dependent (IDDM), uncontrolled Code(s): E10.65 - TYPE 1 DIABETES MELLITUS WITH HYPERGLYCEMIA (7) Esophageal varices Code(s): I85.00 - ESOPHAGEAL VARICES WITHOUT BLEEDING (8) Gastric varix Code(s): I86.4 - GASTRIC VARICES (9) Hepatitis C virus infection Code(s): B19.20 - UNSPECIFIED VIRAL HEPATITIS C WITHOUT HEPATIC COMA (10) Lymphoma Code(s): C85.90 - NON-HODGKIN LYMPHOMA, UNSPECIFIED, UNSPECIFIED SITE (12) Pacemaker Code(s): Z95.0 - PRESENCE OF CARDIAC PACEMAKER (13) Pleural effusion on right Code(s): J90 - PLEURAL EFFUSION, NOT ELSEWHERE CLASSIFIED (14) Thrombocytopenia Code(s): D69.6 - THROMBOCYTOPENIA, UNSPECIFIED (15) Atrial fibrillation with rapid ventricular response Code(s): I48.91 - UNSPECIFIED ATRIAL FIBRILLATION (16) Portal hypertension Code(s): K76.6 - PORTAL HYPERTENSION Assessment/Plan 1. Atrial fibrillation with rapid ventricular response currently in nsr 2. CAD S/P SD, S/P PCI/stent, angina pectoris 3. S/P PPM 4. HTN 5. IDDM 6. Hepatic cirrhosis/hepatitis C/ascites/Portal hypertenson/esophageal varices S /P paracentesis 7. History of pleural effusion 8. Substance abuse on Methadone 9. History of B cell lymphoma 10. Thrombocytopenia 11. COPD 12. History of GI bleed due to esophageal and gastric varices 13. History of sub-arrachnoid hemorrhage PLAN: 1. rate control 2. Not an ideal candidate for half-way anticoagulation in view of liver disease , esophageal and gastric varices, GI bleed and intracranial bleed. 3. Continue Spironolactone 4.thoracentesis DR COLEY
[2016-12-15] MEDS ORDERED: INSULIN (NOVOLOG) ASPART 100 UNITS/ML 10ML VIAL ONE (11:10)
[2016-12-15] MEDS: HYDROmorphone HCL CARPU-JECT 1 MG/1 ML DISP.SYRIN IVPUSH PRN ×2 (17:21→23:20)
[2016-12-15 17:33] LABS: PLEURAL FLUID APPEARANCE BLOODY; PLEURAL FLUID COLOR RED; PLEURAL FLUID SOURCE PLEURAL
[2016-12-15 19:01] LABS: PLEURAL FLUID BASOPHIL 0 %; PLEURAL FLUID LYMPHOCYTES 48 %; PLEURAL FLUID NEUTROPHIL 37 %
[2016-12-15 21:41] LABS: GLUCOSE,PLEURAL FLUID 241.491
[2016-12-15] MEDS ORDERED: RIFAXIMIN 550 MG TABLET (UD) PO SCH (23:00)
[2016-12-16] MEDS: HYDROmorphone HCL CARPU-JECT 1 MG/1 ML DISP.SYRIN IVPUSH PRN (06:30)
[2016-12-16] MEDS: METHADONE HCL 10 MG TABLET PO SCH (06:43)
[2016-12-16] MEDS: INSULIN SLIDING SCALE (NOVOLOG) 1 VIAL SQ SCH ×4 (06:44→21:42)
[2016-12-16] MEDS: INSULIN DETEMIR 100 UNITS/ML MDV SQ SCH ×2 (06:44→21:42)
[2016-12-16 07:18] LABS: BASOPHIL 0.2 % (0-2.0); EOSINOPHIL 2.1 % (0-4.5); MCH 33.5 pg (25.7-33.7); MCHC 34.5 g/dl (32.0-35.9); MEAN PLT VOLUME 9.2 fl (7.5-11.1); NEUTROPHILS 62.2 % (42.8-82.8); PLATELET COUNT 70 K/MM3 (134-434); RDW 16.9 % (11.9-15.9); WHITE BLOOD COUNT 5.1 K/mm3 (4.0-10.0)
[2016-12-16 07:45] LABS: ALBUMIN 1.8 g/dl (3.4-5.0); CALCIUM 7.6 mg/dL (8.5-10.1)
[2016-12-16 07:47] LABS: CREATININE 1.3 mg/dL (0.7-1.3); TOT PROT 6.7 g/dl (6.4-8.2)
[2016-12-16] MEDS: SPIRONOLACTONE 25 MG TABLET (FP) PO SCH (09:23)
[2016-12-16] MEDS: METOPROLOL TARTRATE 25 MG TABLET (FP) PO SCH ×2 (09:23→21:42)
[2016-12-16] MEDS: PANTOPRAZOLE 40 MG TABLET (FP) PO SCH (09:23)
[2016-12-16] MEDS: FUROSEMIDE 40 MG TABLET (FP) PO SCH (09:23)
--- NOTE | 2016-12-16 09:37 | PN ---
Progress Note, Physician - Current Medication List Current Medications: Active Medications Furosemide (Lasix -) 40 mg PO DAILY [facility] Last Admin: 12/16/16 09:23 Dose: 40 mg Hydromorphone HCl (Dilaudid Injection -) 0.5 mg IVPUSH Q6H PRN PRN Reason: PAIN Last Admin: 12/16/16 06:30 Dose: 0.5 mg Insulin Aspart (Novolog Vial Sliding Scale -) 1 vial SQ ACHS [facility] PRN Reason: Protocol Last Admin: 12/16/16 06:44 Dose: Not Given Insulin Detemir (Levemir Vial) 20 units SQ HS [facility] Last Admin: 12/15/16 22:41 Dose: 20 units Insulin Detemir (Levemir Vial) 30 units SQ AM [facility] Last Admin: 12/16/16 06:44 Dose: Not Given Lactulose (Cephulac (Oral Use)) 30 gm PO QID PRN PRN Reason: CONSTIPATION Last Admin: 12/14/16 21:04 Dose: 30 gm Methadone HCl (Dolophine -) 15 mg PO DAILY@0600 [facility] Last Admin: 12/16/16 06:43 Dose: 15 mg Metoprolol Tartrate (Lopressor -) 25 mg PO BID [facility] Last Admin: 12/16/16 09:23 Dose: 25 mg Pantoprazole Sodium (Protonix -) 40 mg PO DAILY [facility] Last Admin: 12/16/16 09:23 Dose: 40 mg Spironolactone (Aldactone -) 50 mg PO DAILY [facility] Last Admin: 12/16/16 09:23 Dose: 50 mg - Objective Vital Signs: Vital Signs Temperature 98.9 F 12/16/16 07:43 Pulse Rate 69 12/16/16 07:43 Respiratory Rate 20 12/16/16 07:43 Blood Pressure 118/61 12/16/16 07:43 O2 Sat by Pulse Oximetry (%) 97 12/15/16 21:00 Labs: CBC, BMP 12/16/16 05:35 12/16/16 05:35 INR, PTT INR 1.42 (0.82-1.09) H 12/15/16 05:35 Fibrinogen 295.0 mg/dL (238-498) D 12/15/16 05:35 Problem List - Problems (1) Hyperglycemia Assessment/Plan: IVF INSULIN ENDO Code(s): R73.9 - HYPERGLYCEMIA, UNSPECIFIED (2) Diabetes mellitus, insulin dependent (IDDM), uncontrolled Assessment/Plan: ABOVE Code(s): E10.65 - TYPE 1 DIABETES MELLITUS WITH HYPERGLYCEMIA Qualifiers: Diabetes mellitus complication status: without complication Qualified Code(s): E10.9 - Type 1 diabetes mellitus without complications (3) Cirrhosis of liver Assessment/Plan: GI CONSULT NOTED Code(s): K74.60 - UNSPECIFIED CIRRHOSIS OF LIVER Qualifiers: Hepatic cirrhosis type: unspecified hepatic cirrhosis Ascites presence : without ascites Qualified Code(s): K74.60 - Unspecified cirrhosis of liver (4) CKD (chronic kidney disease) Code(s): N18.9 - CHRONIC KIDNEY DISEASE, UNSPECIFIED Qualifiers: (5) Lymphoma Assessment/Plan: ONC ON CASE Code(s): C85.90 - NON-HODGKIN LYMPHOMA, UNSPECIFIED, UNSPECIFIED SITE (6) Thrombocytopenia Assessment/Plan: MONITOR --IMPOROVED Code(s): D69.6 - THROMBOCYTOPENIA, UNSPECIFIED (7) Progressive anemia Assessment/Plan: FOLLOW LABS W/U ORDERED Code(s): D64.9 - ANEMIA, UNSPECIFIED (8) Right inguinal hernia Assessment/Plan: N\ GI/SURGERY--F/U SINCE PLAT IMPROVED Code(s): K40.90 - UNIL INGUINAL HERNIA, W/O OBST OR GANGR, NOT SPCF RECUR (9) Radiculopathy Assessment/Plan: PT EMG CT SCAN DILUADID WITH CAUTION NEURO Code(s): M54.10 - RADICULOPATHY, SITE UNSPECIFIED (10) Ascites Assessment/Plan: PARACENTESIS Code(s): R18.8 - OTHER ASCITES Qualifiers: Ascites type: due to alcoholic cirrhosis Qualified Code(s): K70.31 - Alcoholic cirrhosis of liver with ascites (11) Pleural effusion Assessment/Plan: TAP FOR TODAY Code(s): J90 - PLEURAL EFFUSION, NOT ELSEWHERE CLASSIFIED Assessment/Plan 1) Hyperglycemia Assessment/Plan: Laboratory Tests 12/13/16 12/13/16 12/13/16 11:29 16:30 21:09 POC Glucometer 141 169 179 12/14/16 06:17 POC Glucometer 73 BETTER INSULIN ENDO Code(s): R73.9 - HYPERGLYCEMIA, UNSPECIFIED (2) Diabetes mellitus, insulin dependent (IDDM), uncontrolled Assessment/Plan: ABOVE Code(s): E10.65 - TYPE 1 DIABETES MELLITUS WITH HYPERGLYCEMIA (3) Cirrhosis of liver Assessment/Plan: GI CONSULTED INR 1.5 -> F/U AMMONIA 40 -> F/U F/U PARACENTESIS Code(s): K74.60 - UNSPECIFIED CIRRHOSIS OF LIVER Qualifiers: Hepatic cirrhosis type: unspecified hepatic cirrhosis Ascites presence : without ascites Qualified Code(s): K74.60 - Unspecified cirrhosis of liver (4) CKD (chronic kidney disease) Code(s): N18.9 - CHRONIC KIDNEY DISEASE, UNSPECIFIED Qualifiers: (5) Lymphoma Assessment/Plan: ONC ON CASE Code(s): C85.90 - NON-HODGKIN LYMPHOMA, UNSPECIFIED, UNSPECIFIED SITE (6) Thrombocytopenia Assessment/Plan: MONITOR PLT Laboratory Tests 12/12/16 12/13/16 12/14/16 11:19 05:45 05:35 Plt Count 80 L D 73 L 137 D > F/U Code(s): D69.6 - THROMBOCYTOPENIA, UNSPECIFIED (7) Progressive anemia Assessment/Plan: FOLLOW LABS W/U ORDERED Code(s): D64.9 - ANEMIA, UNSPECIFIED (8) Right inguinal hernia Assessment/Plan: NOT SURE IF PAIN RELATED TO HERNIA VS RADICULPATHY PT HIGH RISK FOR ANY PROCEDURE SURGERY F/U SINCE PLAT BETTER Code(s): K40.90 - UNIL INGUINAL HERNIA, W/O OBST OR GANGR, NOT SPCF RECUR (9) Radiculopathy Assessment/Plan: PT EMG CT SCAN DILUADID WITH CAUTION NEURO Code(s): M54.10 - RADICULOPATHY, SITE UNSPECIFIED (8) Chest pain on breathing Code(s): R07.1 - CHEST PAIN ON BREATHING CASE D/W HOSPITALIST CARDIO ON CASE CPK NEG TROP INCed -> F/U (9) Opiate dependence Code(s): F11.20 - OPIOID DEPENDENCE, UNCOMPLICATED Qualifiers: Substance use status: with unspecified opioid-induced disorder Qualified Code(s): F11.29 - Opioid dependence with unspecified opioid-induced disorder ADDICTION Rx ON CASE SNIFFING HEROIN DURING THIS ADMISSION MMTP 10 -> 15 DAILY
--- NOTE | 2016-12-16 10:41 | PN ---
Progress Note, Physician History of Present Illness: PULMONARY ALERT,FEELING BETTER,LESS DYSPNEIC,S/P THORACENTESIS - Current Medication List Current Medications: Active Medications Furosemide (Lasix -) 40 mg PO DAILY [facility] Last Admin: 12/16/16 09:23 Dose: 40 mg Insulin Aspart (Novolog Vial Sliding Scale -) 1 vial SQ ACHS [facility] PRN Reason: Protocol Last Admin: 12/16/16 06:44 Dose: Not Given Insulin Detemir (Levemir Vial) 20 units SQ HS [facility] Last Admin: 12/15/16 22:41 Dose: 20 units Insulin Detemir (Levemir Vial) 30 units SQ AM [facility] Last Admin: 12/16/16 06:44 Dose: Not Given Lactulose (Cephulac (Oral Use)) 30 gm PO QID PRN PRN Reason: CONSTIPATION Last Admin: 12/14/16 21:04 Dose: 30 gm Methadone HCl (Dolophine -) 15 mg PO DAILY@0600 [facility] Last Admin: 12/16/16 06:43 Dose: 15 mg Metoprolol Tartrate (Lopressor -) 25 mg PO BID [facility] Last Admin: 12/16/16 09:23 Dose: 25 mg Pantoprazole Sodium (Protonix -) 40 mg PO DAILY [facility] Last Admin: 12/16/16 09:23 Dose: 40 mg Spironolactone (Aldactone -) 50 mg PO DAILY [facility] Last Admin: 12/16/16 09:23 Dose: 50 mg - Objective Vital Signs: Vital Signs Temperature 98.9 F 12/16/16 07:43 Pulse Rate 69 12/16/16 07:43 Respiratory Rate 20 12/16/16 07:43 Blood Pressure 118/61 12/16/16 07:43 O2 Sat by Pulse Oximetry (%) 97 12/15/16 21:00 Constitutional: Yes: Calm, Thin Eyes: Yes: WNL HENT: Yes: WNL Neck: Yes: WNL Cardiovascular: Yes: Pulse Irregular, S1, S2 Respiratory: Yes: Diminished (IMPROVED BREATH SOUNDS ON R) Gastrointestinal: Yes: Soft, Ascites Extremities: Yes: WNL Edema: Yes (R>L) Labs: CBC, BMP 12/16/16 05:35 12/16/16 05:35 INR, PTT INR 1.42 (0.82-1.09) H 12/15/16 05:35 Fibrinogen 295.0 mg/dL (238-498) D 12/15/16 05:35 Assessment/Plan Problem List - Problems (1) Cirrhosis of liver Code(s): K74.60 - UNSPECIFIED CIRRHOSIS OF LIVER Qualifiers: Hepatic cirrhosis type: unspecified hepatic cirrhosis Ascites presence : without ascites Qualified Code(s): K74.60 - Unspecified cirrhosis of liver (2) Type 2 diabetes mellitus with other diabetic neurological complication Code(s): E11.49 - TYPE 2 DIABETES W OTH DIABETIC NEUROLOGICAL COMPLICATION (3) Acute on chronic renal failure Code(s): N17.9 - ACUTE KIDNEY FAILURE, UNSPECIFIED N18.9 - CHRONIC KIDNEY DISEASE, UNSPECIFIED (4) Anxiety Code(s): F41.9 - ANXIETY DISORDER, UNSPECIFIED (5) Ascites Code(s): R18.8 - OTHER ASCITES Qualifiers: Ascites type: due to alcoholic cirrhosis Qualified Code(s): K70.31 - Alcoholic cirrhosis of liver with ascites (6) Diabetes mellitus, insulin dependent (IDDM), uncontrolled Code(s): E10.65 - TYPE 1 DIABETES MELLITUS WITH HYPERGLYCEMIA (7) Esophageal varices Code(s): I85.00 - ESOPHAGEAL VARICES WITHOUT BLEEDING (8) Gastric varix Code(s): I86.4 - GASTRIC VARICES (9) Hepatitis C virus infection Code(s): B19.20 - UNSPECIFIED VIRAL HEPATITIS C WITHOUT HEPATIC COMA (10) Lymphoma Code(s): C85.90 - NON-HODGKIN LYMPHOMA, UNSPECIFIED, UNSPECIFIED SITE (12) Pacemaker Code(s): Z95.0 - PRESENCE OF CARDIAC PACEMAKER (13) Pleural effusion on right Code(s): J90 - PLEURAL EFFUSION, NOT ELSEWHERE CLASSIFIED (14) Thrombocytopenia Code(s): D69.6 - THROMBOCYTOPENIA, UNSPECIFIED (15) Atrial fibrillation with rapid ventricular response Code(s): I48.91 - UNSPECIFIED ATRIAL FIBRILLATION (16) Portal hypertension Code(s): K76.6 - PORTAL HYPERTENSION Assessment/Plan 1. Atrial fibrillation with rapid ventricular response currently in nsr 2. CAD S/P AL, S/P PCI/stent, angina pectoris 3. S/P PPM 4. HTN 5. IDDM 6. Hepatic cirrhosis/hepatitis C/ascites/Portal hypertenson/esophageal varices S /P paracentesis 7. History of pleural effusion 8. Substance abuse on Methadone 9. History of B cell lymphoma 10. Thrombocytopenia 11. COPD 12. History of GI bleed due to esophageal and gastric varices 13. History of sub-arrachnoid hemorrhage PLAN: 1. rate control 2. Not an ideal candidate for mcc anticoagulation in view of liver disease , esophageal and gastric varices, GI bleed and intracranial bleed. 3. Continue Aldactone,lasix [address] COLEY
--- NOTE | 2016-12-16 10:43 | PN ---
Progress Note (short form) - Note Progress Note: S: 56 year old gentleman, with history of CAD, s/p SD, s/p PIC/stenting, angina pectoris, paroxysmal atrial fibrillation, sick sinus syndrome s/p permanent pacemaker, history of hypertension, insulin dependent diabetes mellitus, hepatic cirrhosis, ascites, esophegeal varices and hepatitis C. History of B cell lymphoma, COPD, s/p subarachnoid hemorrhage. History of drug abuse. Patient denies chest pain or discomfort either at rest or with exertion. History of intermittent dyspnea and ongoing ascites. Active Medications Generic Name Dose Route Start Last Admin Trade Name Freq PRN Reason Stop Dose Admin Furosemide 40 mg 12/09/16 10:00 12/16/16 09:23 Lasix - PO 40 mg DAILY JADEN Administration Insulin Aspart 1 vial 12/09/16 15:56 12/16/16 06:44 Novolog Vial Sliding Scale - SQ Not Given ACHS JADEN Protocol Insulin Detemir 20 units 12/10/16 00:23 12/15/16 22:41 Levemir Vial SQ 20 units HS JADEN Administration Insulin Detemir 30 units 12/10/16 07:00 12/16/16 06:44 Levemir Vial SQ Not Given AM JADEN Lactulose 30 gm 12/08/16 18:30 12/14/16 21:04 Cephulac (Oral Use) PO 30 gm QID PRN Administration CONSTIPATION Methadone HCl 15 mg 12/12/16 06:00 12/16/16 06:43 Dolophine - PO 15 mg DAILY@0600 JADEN Administration Metoprolol Tartrate 25 mg 12/12/16 12:30 12/16/16 09:23 Lopressor - PO 25 mg BID JADEN Administration Pantoprazole Sodium 40 mg 12/09/16 10:00 12/16/16 09:23 Protonix - PO 40 mg DAILY JADEN Administration Spironolactone 50 mg 12/09/16 10:00 12/16/16 09:23 Aldactone - PO 50 mg DAILY [facility] Administration O: 56 year old male was in no acute distress, no pallor, cyanosis, clubbing, or jaundice. Last Vital Signs Temp Pulse Resp BP Pulse Ox 98.9 F 69 20 118/61 97 12/16/16 07:43 12/16/16 07:43 12/16/16 07:43 12/16/16 07:43 12/15/16 21:00 Neck: Supple, no JVD, negative HJR, carotids were equal and upstrokes were normal, no thyromegaly appreciated. Heart: PMI was in the 5th intercostal space, no heaves or thrills, S1 and S2 were normal. No murmurs or gallops were appreciated. Lungs: Decreased breath sounds involving the right lung posteriorly up to the midzone. Dullness on percussion. Abdomen: Large ascites unable to appreciate hepatoslenomegaly. Non-tender. Edema involving the scrotum. Extremities: 1-2+ right lower extremity edema with stasis changes. No edema involving the left lower extremity. CBC, BMP 12/16/16 05:35 12/16/16 05:35 Laboratory Results - last 24 hr 12/15/16 12/15/16 12/15/16 11:04 16:29 16:30 WBC RBC Hgb Hct MCV MCHC RDW Plt Count MPV Neutrophils % Lymphocytes % Monocytes % Eosinophils % Basophils % Sodium Potassium Chloride Carbon Dioxide Anion Gap BUN Creatinine Creat Clearance w eGFR POC Glucometer 265 219 Random Glucose Calcium Total Bilirubin AST ALT Alkaline Phosphatase Total Protein Albumin Pleural Fluid Source Pleural Pleural Color Red Pleural Appearance Bloody Pleural WBC 589 Pleural RBC 82680 Pleural Neutrophils 37 Pleural Lymphocytes 48 Pleural Monocytes 14 Pleural Eosinophils 0 Pleural Basophils 0 Pleural Total Protein 9.743 Pleural Albumin 1 Pleural LDH 144.59 Pleural Glucose 241.491 Pleural Amylase 18.493 12/15/16 12/16/16 12/16/16 22:40 05:34 05:35 WBC 5.1 RBC 3.01 L Hgb 10.1 L Hct 29.2 L MCV 97.0 H MCHC 34.5 RDW 16.9 H Plt Count 70 L MPV 9.2 Neutrophils % 62.2 Lymphocytes % 18.2 D Monocytes % 17.3 H Eosinophils % 2.1 Basophils % 0.2 Sodium Potassium Chloride Carbon Dioxide Anion Gap BUN Creatinine Creat Clearance w eGFR POC Glucometer 201 89 Random Glucose Calcium Total Bilirubin AST ALT Alkaline Phosphatase Total Protein Albumin Pleural Fluid Source Pleural Color Pleural Appearance Pleural WBC Pleural RBC Pleural Neutrophils Pleural Lymphocytes Pleural Monocytes Pleural Eosinophils Pleural Basophils Pleural Total Protein Pleural Albumin Pleural LDH Pleural Glucose Pleural Amylase 12/16/16 05:35 WBC RBC Hgb Hct MCV MCHC RDW Plt Count MPV Neutrophils % Lymphocytes % Monocytes % Eosinophils % Basophils % Sodium 140 Potassium 4.6 Chloride 105 Carbon Dioxide 29 Anion Gap 6 L BUN 42 H Creatinine 1.3 Creat Clearance w eGFR 57.10 POC Glucometer Random Glucose 95 D Calcium 7.6 L Total Bilirubin 2.0 H AST 39 H ALT 34 Alkaline Phosphatase 183 H Total Protein 6.7 Albumin 1.8 L Pleural Fluid Source Pleural Color Pleural Appearance Pleural WBC Pleural RBC Pleural Neutrophils Pleural Lymphocytes Pleural Monocytes Pleural Eosinophils Pleural Basophils Pleural Total Protein Pleural Albumin Pleural LDH Pleural Glucose Pleural Amylase Impression: (1) Cirrhosis of liver Code(s): K74.60 - UNSPECIFIED CIRRHOSIS OF LIVER Qualifiers: Hepatic cirrhosis type: unspecified hepatic cirrhosis Ascites presence : without ascites Qualified Code(s): K74.60 - Unspecified cirrhosis of liver (2) Esophageal varices Code(s): I85.00 - ESOPHAGEAL VARICES WITHOUT BLEEDING Qualifiers: Esophageal varices type: secondary Esophageal varices bleeding: without bleeding Qualified Code(s): I85.10 - Secondary esophageal varices without bleeding (3) Ascites Code(s): R18.8 - OTHER ASCITES Qualifiers: Ascites type: due to alcoholic cirrhosis Qualified Code(s): K70.31 - Alcoholic cirrhosis of liver with ascites (4) History of Portal hypertension Code(s): K76.6 - PORTAL HYPERTENSIO (5) Type 2 diabetes mellitus with other diabetic neurological complication Code(s): E11.49 - TYPE 2 DIABETES W OTH DIABETIC NEUROLOGICAL COMPLICATION (6) Paroxysmal atrial fibrillation. Code(s): I48.91 - UNSPECIFIED ATRIAL FIBRILLATION (7) Acute on chronic renal failure Code(s): N17.9 - ACUTE KIDNEY FAILURE, UNSPECIFIED N18.9 - CHRONIC KIDNEY DISEASE, UNSPECIFIED (8) Gastric varix Code(s): I86.4 - GASTRIC VARICES (9) Hepatitis C virus infection Code(s): B19.20 - UNSPECIFIED VIRAL HEPATITIS C WITHOUT HEPATIC COMA Qualifiers: Viral hepatitis chronicity: chronic Hepatic coma status: without hepatic coma Qualified Code(s): B18.2 - Chronic viral hepatitis C (10) History of Lymphoma Code(s): C85.90 - NON-HODGKIN LYMPHOMA, UNSPECIFIED, UNSPECIFIED SITE (12) Pacemaker Code(s): Z95.0 - PRESENCE OF CARDIAC PACEMAKER (13) Pleural effusion on right Code(s): J90 - PLEURAL EFFUSION, NOT ELSEWHERE CLASSIFIED (14) Anemia and Thrombocytopenia Code(s): D69.6 - THROMBOCYTOPENIA, UNSPECIFIED Recommendations: 1. Continue current therapy. 2. Risk modifications. Attestation: Documentation prepared by Sidney Murillo, acting as medical care evaluation specialist for Des Cadena MD.
[2016-12-16] MEDS ORDERED: INSULIN (NOVOLOG) ASPART 100 UNITS/ML 10ML VIAL ONE ×2 (11:03→17:12)
[2016-12-16 13:07] LABS: TOTAL PROTEIN,PLEURAL FLUID 2.744
[2016-12-16 14:10] LABS: BODY FLUID RBC 567 /mm3
[2016-12-16 14:28] LABS: GLUCOSE,BODY FLUID 161 mg/dl
[2016-12-16 16:01] LABS: BODY FLUID LYMPHS 27 %; BODY FLUID NEUTROPHILS 4 %; PLEURAL FLUID MACROPHAGES 59 %
--- NOTE | 2016-12-16 20:26 | PN ---
Progress Note (short form) - Note Progress Note: Patient seen and examine s/p thoracentesis, paracentesis feels better today Last Vital Signs Temp Pulse Resp BP Pulse Ox 98.6 F 71 20 116/70 97 12/16/16 18:00 12/16/16 18:00 12/16/16 18:00 12/16/16 18:00 12/15/16 21:00 HEENT: ANNABEL, EOM Intact Oropharynx: No thrush, No mucositis Cor: RSR, No murmurs, No gallops Lungs: Clear to P&A Abd: Soft, Normal bowel sounds, No organomegaly Ext:No significant edema Skin: No rashes, Integument intact Abnormal Lab Results 12/16/16 12/16/16 05:35 05:35 RBC 3.01 L Hgb 10.1 L Hct 29.2 L MCV 97.0 H RDW 16.9 H Plt Count 70 L Monocytes % 17.3 H Anion Gap 6 L BUN 42 H Calcium 7.6 L Total Bilirubin 2.0 H AST 39 H Alkaline Phosphatase 183 H Albumin 1.8 L Current Medications Furosemide (Lasix -) 40 mg PO DAILY [facility] Last Admin: 12/16/16 09:23 Dose: 40 mg Insulin Aspart (Novolog Vial Sliding Scale -) 1 vial SQ ACHS [facility] PRN Reason: Protocol Last Admin: 12/16/16 21:42 Dose: 4 units Insulin Detemir (Levemir Vial) 20 units SQ HS [facility] Last Admin: 12/16/16 21:42 Dose: 20 units Insulin Detemir (Levemir Vial) 30 units SQ AM [facility] Last Admin: 12/16/16 06:44 Dose: Not Given Lactulose (Cephulac (Oral Use)) 30 gm PO QID PRN PRN Reason: CONSTIPATION Last Admin: 12/14/16 21:04 Dose: 30 gm Methadone HCl (Dolophine -) 15 mg PO DAILY@0600 [facility] Last Admin: 12/16/16 06:43 Dose: 15 mg Metoprolol Tartrate (Lopressor -) 25 mg PO BID [facility] Last Admin: 12/16/16 21:42 Dose: 25 mg Pantoprazole Sodium (Protonix -) 40 mg PO DAILY [facility] Last Admin: 12/16/16 09:23 Dose: 40 mg Spironolactone (Aldactone -) 50 mg PO DAILY [facility] Last Admin: 12/16/16 09:23 Dose: 50 mg a/P 56 y/o patient with cirrhosis/coagulopathy/thrombocytopenia/h/o allergic transfusion reactions, s/p thoracentesis/paracentesis still with discomfort at site of inguinal hernia and RLE numbness rt. sciatic mononeuropathy per neuro
[2016-12-16] MEDS ORDERED: ZOLPIDEM TARTRATE 5 MG TABLET PO ONE (22:15)
[2016-12-17] MEDS: METHADONE HCL 10 MG TABLET PO SCH (06:00)
[2016-12-17] MEDS: INSULIN DETEMIR 100 UNITS/ML MDV SQ SCH ×2 (06:44→22:01)
[2016-12-17] MEDS: INSULIN SLIDING SCALE (NOVOLOG) 1 VIAL SQ SCH ×4 (06:44→22:02)
--- NOTE | 2016-12-17 09:09 | PN ---
Progress Note, Physician History of Present Illness: NO ABDOMINAL PAIN DECREASED APPETITE - Current Medication List Current Medications: Active Medications Furosemide (Lasix -) 40 mg PO DAILY [facility] Last Admin: 12/16/16 09:23 Dose: 40 mg Gabapentin (Neurontin -) 100 mg PO BID [facility] Insulin Aspart (Novolog Vial Sliding Scale -) 1 vial SQ ACHS [facility] PRN Reason: Protocol Last Admin: 12/17/16 06:44 Dose: 2 units Insulin Detemir (Levemir Vial) 20 units SQ HS [facility] Last Admin: 12/16/16 21:42 Dose: 20 units Insulin Detemir (Levemir Vial) 30 units SQ AM [facility] Last Admin: 12/17/16 06:44 Dose: 30 units Lactulose (Cephulac (Oral Use)) 30 gm PO QID PRN PRN Reason: CONSTIPATION Last Admin: 12/14/16 21:04 Dose: 30 gm Methadone HCl (Dolophine -) 15 mg PO DAILY@0600 [facility] Last Admin: 12/17/16 06:00 Dose: 15 mg Metoprolol Tartrate (Lopressor -) 25 mg PO BID [facility] Last Admin: 12/16/16 21:42 Dose: 25 mg Pantoprazole Sodium (Protonix -) 40 mg PO DAILY [facility] Last Admin: 12/16/16 09:23 Dose: 40 mg Spironolactone (Aldactone -) 50 mg PO DAILY [facility] Last Admin: 12/16/16 09:23 Dose: 50 mg - Objective Vital Signs: Vital Signs Temperature 97.7 F 12/17/16 05:47 Pulse Rate 72 12/17/16 05:47 Respiratory Rate 20 12/17/16 05:47 Blood Pressure 136/62 12/17/16 05:47 O2 Sat by Pulse Oximetry (%) 95 12/16/16 21:00 Cardiovascular: Yes: S1, S2 Respiratory: Yes: Regular, CTA Bilaterally Gastrointestinal: Yes: Normal Bowel Sounds, Soft, Abdomen, Obese Labs: CBC, BMP 12/16/16 05:35 12/16/16 05:35 INR, PTT INR 1.42 (0.82-1.09) H 12/15/16 05:35 Fibrinogen 295.0 mg/dL (238-498) D 12/15/16 05:35 Problem List - Problems (1) Hyperglycemia Assessment/Plan: IVF INSULIN ENDO Code(s): R73.9 - HYPERGLYCEMIA, UNSPECIFIED (2) Diabetes mellitus, insulin dependent (IDDM), uncontrolled Assessment/Plan: ABOVE Code(s): E10.65 - TYPE 1 DIABETES MELLITUS WITH HYPERGLYCEMIA Qualifiers: Diabetes mellitus complication status: without complication Qualified Code(s): E10.9 - Type 1 diabetes mellitus without complications (3) Cirrhosis of liver Assessment/Plan: GI CONSULT NOTED Code(s): K74.60 - UNSPECIFIED CIRRHOSIS OF LIVER Qualifiers: Hepatic cirrhosis type: unspecified hepatic cirrhosis Ascites presence : with ascites Qualified Code(s): K74.60 - Unspecified cirrhosis of liver (4) CKD (chronic kidney disease) Assessment/Plan: MONITOR Code(s): N18.9 - CHRONIC KIDNEY DISEASE, UNSPECIFIED Qualifiers: (5) Lymphoma Assessment/Plan: ONC ON CASE Code(s): C85.90 - NON-HODGKIN LYMPHOMA, UNSPECIFIED, UNSPECIFIED SITE (6) Thrombocytopenia Assessment/Plan: MONITOR --IMPOROVED Code(s): D69.6 - THROMBOCYTOPENIA, UNSPECIFIED (7) Progressive anemia Assessment/Plan: FOLLOW LABS W/U ORDERED Code(s): D64.9 - ANEMIA, UNSPECIFIED (8) Right inguinal hernia Assessment/Plan: GI/SURGERY--F/U SINCE PLAT IMPROVED SURGICAL F/U Code(s): K40.90 - UNIL INGUINAL HERNIA, W/O OBST OR GANGR, NOT SPCF RECUR (9) Radiculopathy Assessment/Plan: PT EMG CT SCAN NOTED ADD GABPENTIN Code(s): M54.10 - RADICULOPATHY, SITE UNSPECIFIED (10) Ascites Assessment/Plan: S/P PARACENTESIS Code(s): R18.8 - OTHER ASCITES Qualifiers: Ascites type: due to alcoholic cirrhosis Qualified Code(s): K70.31 - Alcoholic cirrhosis of liver with ascites (11) Pleural effusion Assessment/Plan: S/P TAP Code(s): J90 - PLEURAL EFFUSION, NOT ELSEWHERE CLASSIFIED (12) Hepatic encephalopathy Assessment/Plan: IMPROVED Code(s): K72.90 - HEPATIC FAILURE, UNSPECIFIED WITHOUT COMA
[2016-12-17] MEDS: FUROSEMIDE 40 MG TABLET (FP) PO SCH (09:42)
[2016-12-17] MEDS: SPIRONOLACTONE 25 MG TABLET (FP) PO SCH (09:44)
[2016-12-17] MEDS: GABAPENTIN 100 MG CAPSULE (FP) PO SCH ×2 (09:44→22:02)
[2016-12-17] MEDS: METOPROLOL TARTRATE 25 MG TABLET (FP) PO SCH ×2 (09:44→22:02)
[2016-12-17] MEDS: PANTOPRAZOLE 40 MG TABLET (FP) PO SCH (09:44)
--- NOTE | 2016-12-17 11:13 | PN ---
Progress Note, Physician History of Present Illness: Dyspnea much improved post thoracentesis and paracentesis. - Current Medication List Current Medications: Active Medications Furosemide (Lasix -) 40 mg PO DAILY ON LICENSE OF [facility] Last Admin: 12/17/16 09:42 Dose: 40 mg Gabapentin (Neurontin -) 100 mg PO BID ON LICENSE OF [facility] Last Admin: 12/17/16 09:44 Dose: 100 mg Insulin Aspart (Novolog Vial Sliding Scale -) 1 vial SQ ACHS ON LICENSE OF [facility] PRN Reason: Protocol Last Admin: 12/17/16 06:44 Dose: 2 units Insulin Detemir (Levemir Vial) 20 units SQ HS ON LICENSE OF [facility] Last Admin: 12/16/16 21:42 Dose: 20 units Insulin Detemir (Levemir Vial) 30 units SQ AM ON LICENSE OF [facility] Last Admin: 12/17/16 06:44 Dose: 30 units Lactulose (Cephulac (Oral Use)) 30 gm PO QID PRN PRN Reason: CONSTIPATION Last Admin: 12/14/16 21:04 Dose: 30 gm Methadone HCl (Dolophine -) 15 mg PO DAILY@0600 ON [facility] OF [facility] Last Admin: 12/17/16 06:00 Dose: 15 mg Metoprolol Tartrate (Lopressor -) 25 mg PO BID ON [facility] OF [facility] Last Admin: 12/17/16 09:44 Dose: 25 mg Pantoprazole Sodium (Protonix -) 40 mg PO DAILY ON [facility] OF [facility] Last Admin: 12/17/16 09:44 Dose: 40 mg Spironolactone (Aldactone -) 50 mg PO DAILY ON [facility] OF [facility] Last Admin: 12/17/16 09:44 Dose: 50 mg - Objective Vital Signs: Vital Signs Temperature 97.8 F 12/17/16 10:00 Pulse Rate 73 12/17/16 10:00 Respiratory Rate 18 12/17/16 10:00 Blood Pressure 131/77 12/17/16 10:00 O2 Sat by Pulse Oximetry (%) 97 12/17/16 09:00 Constitutional: Yes: No Distress, Calm Neck: Yes: Supple Cardiovascular: Yes: Regular Rate and Rhythm Respiratory: Yes: Regular, Diminished Gastrointestinal: Yes: Normal Bowel Sounds, Soft Edema: Yes Edema: LLE: 1+, RLE: 1+ Labs: CBC, BMP 12/16/16 05:35 12/16/16 05:35 INR, PTT INR 1.42 (0.82-1.09) H 12/15/16 05:35 Fibrinogen 295.0 mg/dL (238-498) D 12/15/16 05:35 Problem List - Problems (1) Atrial fibrillation with rapid ventricular response Code(s): I48.91 - UNSPECIFIED ATRIAL FIBRILLATION (2) Cirrhosis of liver Code(s): K74.60 - UNSPECIFIED CIRRHOSIS OF LIVER Qualifiers: Hepatic cirrhosis type: unspecified hepatic cirrhosis Ascites presence : without ascites Qualified Code(s): K74.60 - Unspecified cirrhosis of liver (3) Portal hypertension Code(s): K76.6 - PORTAL HYPERTENSION (4) Type 2 diabetes mellitus with other diabetic neurological complication Code(s): E11.49 - TYPE 2 DIABETES W OTH DIABETIC NEUROLOGICAL COMPLICATION (5) Sedative dependence Code(s): F13.20 - SEDATIVE, HYPNOTIC OR ANXIOLYTIC DEPENDENCE, UNCOMPLICATED (6) Coagulopathy Code(s): D68.9 - COAGULATION DEFECT, UNSPECIFIED (7) Edema Code(s): R60.9 - EDEMA, UNSPECIFIED Qualifiers: Edema type: unspecified Qualified Code(s): R60.9 - Edema, unspecified (8) Esophageal varices Code(s): I85.00 - ESOPHAGEAL VARICES WITHOUT BLEEDING Qualifiers: Esophageal varices type: secondary Esophageal varices bleeding: without bleeding Qualified Code(s): I85.10 - Secondary esophageal varices without bleeding (9) GI bleed Code(s): K92.2 - GASTROINTESTINAL HEMORRHAGE, UNSPECIFIED (10) Gastric varix Code(s): I86.4 - GASTRIC VARICES (11) Hydrothorax Code(s): J94.8 - OTHER SPECIFIED PLEURAL CONDITIONS (12) Inguinal hernia Code(s): K40.90 - UNIL INGUINAL HERNIA, W/O OBST OR GANGR, NOT SPCF RECUR (13) Liver failure Code(s): K72.90 - HEPATIC FAILURE, UNSPECIFIED WITHOUT COMA Qualifiers: Liver failure chronicity: chronic Hepatic coma status: without hepatic coma Qualified Code(s): K72.10 - Chronic hepatic failure without coma (15) Pacemaker Code(s): Z95.0 - PRESENCE OF CARDIAC PACEMAKER (16) Pancytopenia Code(s): D61.818 - OTHER PANCYTOPENIA (17) Pleural effusion associated with hepatic disorder Code(s): K76.9 - LIVER DISEASE, UNSPECIFIED J91.8 - PLEURAL EFFUSION IN OTHER CONDITIONS CLASSIFIED ELSEWHERE (18) Shortness of breath Code(s): R06.02 - SHORTNESS OF BREATH Assessment/Plan 1. Paroxysmal atrial fibrillation now in sinus rhythm 2. CAD, history of TX, S/P PCI/stent, angina pectoris 3. Sick sinus syndrome S/P PPM ([employer]) 4. HTN 5. IDDM 6. Hepatic cirrhosis/hepatitis C/ascites/Portal hypertenson/esophageal varices S /P paracentesis 7. History of pleural effusion s/p thoracentesis and chest tube - total opacification of right lung field currently 8. Substance abuse on Methadone, but has used Heroine recently 9. History of B cell lymphoma 10. Thrombocytopenia and coagulopathy due to above issues 11. COPD 12. History of GI bleed due to esophageal and gastric varices 13. History of subarrachnoid hemorrhage 14. Right inguinal hernia, not ideal operative candidate PLAN: 1. Continue Lopressor 25 mg BID and uptitrate 2. Not an ideal candidate for residential anticoagulation in view of liver disease , esophageal and gastric varices, GI bleed and intracranial bleed. 3. Continue Spironolactone 50 qd and Lasix 40 qd, Lactulose, GI prophylaxis 4. D/c telemetry
--- NOTE | 2016-12-17 14:39 | PN ---
Progress Note (short form) - Note Progress Note: PULMONARY Breathing remains improved s/p thoracentesis. No cough or wheezing. Last Vital Signs Temp Pulse Resp BP Pulse Ox 97.8 F 73 18 131/77 97 12/17/16 10:00 12/17/16 10:00 12/17/16 10:00 12/17/16 10:00 12/17/16 09:00 Gen: NAD at rest Heart: RRR Lung: decreased breath sounds right 2/3 up Abd: soft, nontender Ext: + edema CBC, BMP 12/16/16 05:35 12/16/16 05:35 Active Medications Furosemide (Lasix -) 40 mg PO DAILY [facility] Last Admin: 12/17/16 09:42 Dose: 40 mg Gabapentin (Neurontin -) 100 mg PO BID [facility] Last Admin: 12/17/16 09:44 Dose: 100 mg Insulin Aspart (Novolog Vial Sliding Scale -) 1 vial SQ ACHS [facility] PRN Reason: Protocol Last Admin: 12/17/16 11:45 Dose: 5 units Insulin Detemir (Levemir Vial) 20 units SQ HS [facility] Last Admin: 12/16/16 21:42 Dose: 20 units Insulin Detemir (Levemir Vial) 30 units SQ AM [facility] Last Admin: 12/17/16 06:44 Dose: 30 units Lactulose (Cephulac (Oral Use)) 30 gm PO QID PRN PRN Reason: CONSTIPATION Last Admin: 12/14/16 21:04 Dose: 30 gm Methadone HCl (Dolophine -) 15 mg PO DAILY@0600 [facility] Last Admin: 12/17/16 06:00 Dose: 15 mg Metoprolol Tartrate (Lopressor -) 25 mg PO BID [facility] Last Admin: 12/17/16 09:44 Dose: 25 mg Pantoprazole Sodium (Protonix -) 40 mg PO DAILY [facility] Last Admin: 12/17/16 09:44 Dose: 40 mg Spironolactone (Aldactone -) 50 mg PO DAILY [facility] Last Admin: 12/17/16 09:44 Dose: 50 mg A/P Liver cirrhosis Hep C Esophageal Varices Thrombocytopenia Coagulopathy Portal Hypertension Pleural Effusion likely Hepatic Hydrothorax Paroxysmal Atrial Fibrillation CAD HTN DM - titrate lasix, aldactone - monitor coags, platelets - O2 as needed - repeat CXR if symptomatic - DVT prophylaxis
--- NOTE | 2016-12-17 14:43 | PATH ---
Cytology Non-Gynecological Report Patient Name: ELEAZAR LLANES [facility]. Rec. #: [id number] /Age/Gender: 1960 (Age: 56) / M Account: [id number] Location: 4 W TELEMETRY U Taken: 12/16/2016 Received: 12/16/2016 Reported: 12/17/2016 Physicians: Bernard Mehta M.D. Specimen(s) Received A: ABDOMINAL FLUID IN 50% ALCOHOL B: ABDOMINAL FLUID FRESH Clinical History Ascites Final Diagnosis A,B. ABDOMINAL FLUID, PARACENTESIS: SATISFACTORY FOR EVALUATION. NO MALIGNANT CELLS IDENTIFIED. REACTIVE MESOTHELIAL CELLS, HISTIOCYTES AND LYMPHOCYTES. Electronically Signed Avi Salinas M.D. Gross Description A. Received is a 50 cc of yellow fluid in 50% alcohol. One cytofunnel slide and one cell block are made. B. Received is 1500 cc of yellow fluid fresh. One cytofunnel slide and one cell block are made.
--- NOTE | 2016-12-17 14:45 | PATH ---
Cytology Non-Gynecological Report Patient Name: ELEAZAR LLANES Med. Rec. #: [id number] /Age/Gender: 1960 (Age: 56) / M Account: [id number] Location: 4 W TELEMETRY U Taken: 12/16/2016 Received: 12/16/2016 Reported: 12/17/2016 Physicians: Bernard Mehta M.D. Specimen(s) Received A: PLEURAL FLUID IN 50% ALCOHOL B: PLEURAL FLUID FRESH Clinical History Pleural effusion Final Diagnosis A.B. PLEURAL FLUID, THORACENTESIS: SATISFACTORY FOR EVALUATION. NO MALIGNANT CELLS IDENTIFIED. REACTIVE MESOTHELIAL CELLS, HISTIOCYTES AND MIXED INFLAMMATORY CELLS. Electronically Signed Avi Salinas M.D. Gross Description A. Received is 50 cc of peach colored fluid fresh. One cytofunnel slide and one cell block are made. B. Received is 2000 cc of sanguinous fluid fresh. One cytofunnel slide and one cell block are made.
[2016-12-17] MEDS: ZOLPIDEM TARTRATE 5 MG TABLET PO PRN (21:59)
[2016-12-18] MEDS: METHADONE HCL 10 MG TABLET PO SCH (06:55)
[2016-12-18] MEDS: INSULIN SLIDING SCALE (NOVOLOG) 1 VIAL SQ SCH ×4 (06:59→21:24)
[2016-12-18] MEDS: INSULIN DETEMIR 100 UNITS/ML MDV SQ SCH ×2 (07:00→21:24)
--- NOTE | 2016-12-18 08:19 | PN ---
Progress Note, Physician History of Present Illness: C/O ABDOMINAL PAIN DECREASED APPETITE - Current Medication List Current Medications: Active Medications Furosemide (Lasix -) 40 mg PO DAILY [facility] Last Admin: 12/17/16 09:42 Dose: 40 mg Gabapentin (Neurontin -) 100 mg PO BID [facility] Last Admin: 12/17/16 22:02 Dose: 100 mg Insulin Aspart (Novolog Vial Sliding Scale -) 1 vial SQ ACHS [facility] PRN Reason: Protocol Last Admin: 12/18/16 06:59 Dose: Not Given Insulin Detemir (Levemir Vial) 20 units SQ HS [facility] Last Admin: 12/17/16 22:01 Dose: 20 units Insulin Detemir (Levemir Vial) 30 units SQ AM [facility] Last Admin: 12/18/16 07:00 Dose: 30 units Lactulose (Cephulac (Oral Use)) 30 gm PO QID PRN PRN Reason: CONSTIPATION Last Admin: 12/14/16 21:04 Dose: 30 gm Methadone HCl (Dolophine -) 15 mg PO DAILY@0600 [facility] Last Admin: 12/18/16 06:55 Dose: 15 mg Metoprolol Tartrate (Lopressor -) 25 mg PO BID [facility] Last Admin: 12/17/16 22:02 Dose: 25 mg Pantoprazole Sodium (Protonix -) 40 mg PO DAILY [facility] Last Admin: 12/17/16 09:44 Dose: 40 mg Spironolactone (Aldactone -) 50 mg PO DAILY [facility] Last Admin: 12/17/16 09:44 Dose: 50 mg Zolpidem Tartrate (Ambien -) 10 mg PO HS PRN PRN Reason: INSOMNIA Last Admin: 12/17/16 21:59 Dose: 10 mg - Objective Vital Signs: Vital Signs Temperature 97.9 F 12/18/16 06:00 Pulse Rate 68 12/18/16 06:00 Respiratory Rate 16 12/18/16 06:00 Blood Pressure 123/69 12/18/16 06:00 O2 Sat by Pulse Oximetry (%) 97 12/17/16 21:00 Cardiovascular: Yes: Regular Rate and Rhythm Respiratory: Yes: Regular, CTA Bilaterally Gastrointestinal: Yes: Normal Bowel Sounds, Soft, Hernia, Tenderness Labs: CBC, BMP 12/16/16 05:35 12/16/16 05:35 INR, PTT INR 1.42 (0.82-1.09) H 02/21/17 05:35 Fibrinogen 295.0 mg/dL (238-498) D 12/15/16 05:35 Problem List - Problems (1) Hyperglycemia Code(s): R73.9 - HYPERGLYCEMIA, UNSPECIFIED (2) Diabetes mellitus, insulin dependent (IDDM), uncontrolled Code(s): E10.65 - TYPE 1 DIABETES MELLITUS WITH HYPERGLYCEMIA Qualifiers: Diabetes mellitus complication status: without complication Qualified Code(s): E10.9 - Type 1 diabetes mellitus without complications (3) Cirrhosis of liver Code(s): K74.60 - UNSPECIFIED CIRRHOSIS OF LIVER Qualifiers: Hepatic cirrhosis type: unspecified hepatic cirrhosis Ascites presence : with ascites Qualified Code(s): K74.60 - Unspecified cirrhosis of liver (4) CKD (chronic kidney disease) Code(s): N18.9 - CHRONIC KIDNEY DISEASE, UNSPECIFIED Qualifiers: (5) Lymphoma Code(s): C85.90 - NON-HODGKIN LYMPHOMA, UNSPECIFIED, UNSPECIFIED SITE (6) Thrombocytopenia Code(s): D69.6 - THROMBOCYTOPENIA, UNSPECIFIED (7) Progressive anemia Code(s): D64.9 - ANEMIA, UNSPECIFIED (8) Right inguinal hernia Code(s): K40.90 - UNIL INGUINAL HERNIA, W/O OBST OR GANGR, NOT SPCF RECUR (9) Radiculopathy Code(s): M54.10 - RADICULOPATHY, SITE UNSPECIFIED (10) Ascites Code(s): R18.8 - OTHER ASCITES Qualifiers: Ascites type: due to alcoholic cirrhosis Qualified Code(s): K70.31 - Alcoholic cirrhosis of liver with ascites (11) Pleural effusion Code(s): J90 - PLEURAL EFFUSION, NOT ELSEWHERE CLASSIFIED Assessment/Plan 1) Hyperglycemia Assessment/Plan: Laboratory Tests 12/13/16 12/13/16 12/13/16 11:29 16:30 21:09 POC Glucometer 141 169 179 12/14/16 06:17 POC Glucometer 73 BETTER INSULIN ENDO Code(s): R73.9 - HYPERGLYCEMIA, UNSPECIFIED (2) Diabetes mellitus, insulin dependent (IDDM), uncontrolled Assessment/Plan: ABOVE Code(s): E10.65 - TYPE 1 DIABETES MELLITUS WITH HYPERGLYCEMIA (3) Cirrhosis of liver Assessment/Plan: GI CONSULTED INR 1.5 -> F/U AMMONIA 40 -> F/U F/U PARACENTESIS Code(s): K74.60 - UNSPECIFIED CIRRHOSIS OF LIVER Qualifiers: Hepatic cirrhosis type: unspecified hepatic cirrhosis Ascites presence : without ascites Qualified Code(s): K74.60 - Unspecified cirrhosis of liver (4) CKD (chronic kidney disease) Code(s): N18.9 - CHRONIC KIDNEY DISEASE, UNSPECIFIED Qualifiers: (5) Lymphoma Assessment/Plan: ONC ON CASE Code(s): C85.90 - NON-HODGKIN LYMPHOMA, UNSPECIFIED, UNSPECIFIED SITE (6) Thrombocytopenia Assessment/Plan: MONITOR PLT 70 > F/U Code(s): D69.6 - THROMBOCYTOPENIA, UNSPECIFIED (7) Progressive anemia Assessment/Plan: FOLLOW LABS W/U ORDERED Code(s): D64.9 - ANEMIA, UNSPECIFIED (8) Right inguinal hernia Assessment/Plan: NOT SURE IF PAIN RELATED TO HERNIA VS RADICULPATHY PT HIGH RISK FOR ANY PROCEDURE SURGERY F/U SINCE PLAT BETTER AND PT IN PAIN Code(s): K40.90 - UNIL INGUINAL HERNIA, W/O OBST OR GANGR, NOT SPCF RECUR (9) Radiculopathy Assessment/Plan: PT EMG CT SCAN DILUADID WITH CAUTION NEURO Code(s): M54.10 - RADICULOPATHY, SITE UNSPECIFIED (8) Chest pain on breathing Code(s): R07.1 - CHEST PAIN ON BREATHING CASE D/W HOSPITALIST CARDIO ON CASE CPK NEG TROP INCed -> F/U (9) Opiate dependence Code(s): F11.20 - OPIOID DEPENDENCE, UNCOMPLICATED Qualifiers: Substance use status: with unspecified opioid-induced disorder Qualified Code(s): F11.29 - Opioid dependence with unspecified opioid-induced disorder ADDICTION Rx ON CASE SNIFFING HEROIN DURING THIS ADMISSION MMTP 10 -> 15 DAILY (10) Hepatic encephalopathy Assessment/Plan: IMPROVED Code(s): K72.90 - HEPATIC FAILURE, UNSPECIFIED WITHOUT COMA
[2016-12-18] MEDS: SPIRONOLACTONE 25 MG TABLET (FP) PO SCH (09:52)
[2016-12-18] MEDS: METOPROLOL TARTRATE 25 MG TABLET (FP) PO SCH ×2 (09:53→21:23)
[2016-12-18] MEDS: FUROSEMIDE 40 MG TABLET (FP) PO SCH (09:53)
[2016-12-18] MEDS: PANTOPRAZOLE 40 MG TABLET (FP) PO SCH (09:54)
[2016-12-18] MEDS: GABAPENTIN 100 MG CAPSULE (FP) PO SCH ×2 (09:54→21:24)
--- NOTE | 2016-12-18 10:16 | PN ---
Progress Note (short form) - Note Progress Note: Attending Surgeon F/U Seen in f/u; had paracentesis and thorocentesis; c/o right groin pain o/w negative. O/E: VSS AF abdomen soft; flat; fluid wave is present; umbilical hernia persists; RIH is reducible IMP: umbilical hernia; right inguinal hernia; ESLD w/ sequelae PLAN: Suggest continued conservative tx.; advise scrotal support; pain management as needed; repair of the hernia(s) will lead to an uncontrollable ascitic leak from the incision(s) w/ significant complication; d/w the patient in depth Kevin Jade MD FACS
--- NOTE | 2016-12-18 12:45 | PN ---
Progress Note, Physician History of Present Illness: pulmonary alert,nad,-sob,-congestion - Current Medication List Current Medications: Active Medications Furosemide (Lasix -) 40 mg PO DAILY [facility] Last Admin: 12/18/16 09:53 Dose: 40 mg Gabapentin (Neurontin -) 100 mg PO BID [facility] Last Admin: 12/18/16 09:54 Dose: 100 mg Insulin Aspart (Novolog Vial Sliding Scale -) 1 vial SQ ACHS [facility] [place] PRN Reason: Protocol Last Admin: 12/18/16 11:36 Dose: 2 units Insulin Detemir (Levemir Vial) 20 units SQ HS [facility] Last Admin: 12/17/16 22:01 Dose: 20 units Insulin Detemir (Levemir Vial) 30 units SQ AM [facility] Last Admin: 12/18/16 07:00 Dose: 30 units Lactulose (Cephulac (Oral Use)) 30 gm PO QID PRN PRN Reason: CONSTIPATION Last Admin: 12/14/16 21:04 Dose: 30 gm Methadone HCl (Dolophine -) 15 mg PO DAILY@0600 [facility] [place] Last Admin: 12/18/16 06:55 Dose: 15 mg Metoprolol Tartrate (Lopressor -) 25 mg PO BID [facility] [place] Last Admin: 12/18/16 09:53 Dose: 25 mg Pantoprazole Sodium (Protonix -) 40 mg PO DAILY [facility] Last Admin: 12/18/16 09:54 Dose: 40 mg Spironolactone (Aldactone -) 50 mg PO DAILY [facility] Last Admin: 12/18/16 09:52 Dose: 50 mg Zolpidem Tartrate (Ambien -) 10 mg PO HS PRN PRN Reason: INSOMNIA Last Admin: 12/17/16 21:59 Dose: 10 mg - Objective Vital Signs: Vital Signs Temperature 98.3 F 12/18/16 09:51 Pulse Rate 73 12/18/16 09:51 Respiratory Rate 18 12/18/16 09:51 Blood Pressure 142/83 12/18/16 09:51 O2 Sat by Pulse Oximetry (%) 97 12/17/16 21:00 Constitutional: Yes: Calm, Thin Eyes: Yes: WNL HENT: Yes: WNL Neck: Yes: WNL Cardiovascular: Yes: Pulse Irregular, S1, S2 Respiratory: Yes: Diminished Gastrointestinal: Yes: Normal Bowel Sounds, Soft, Ascites Extremities: Yes: WNL Edema: Yes Labs: CBC, BMP 12/16/16 05:35 12/16/16 05:35 INR, PTT INR 1.42 (0.82-1.09) H 12/15/16 05:35 Fibrinogen 295.0 mg/dL (238-498) D 12/15/16 05:35 Assessment/Plan Problem List - Problems (1) Cirrhosis of liver Code(s): K74.60 - UNSPECIFIED CIRRHOSIS OF LIVER Qualifiers: Hepatic cirrhosis type: unspecified hepatic cirrhosis Ascites presence : without ascites Qualified Code(s): K74.60 - Unspecified cirrhosis of liver (2) Type 2 diabetes mellitus with other diabetic neurological complication Code(s): E11.49 - TYPE 2 DIABETES W H DIABETIC NEUROLOGICAL COMPLICATION (3) Acute on chronic renal failure Code(s): N17.9 - ACUTE KIDNEY FAILURE, UNSPECIFIED N18.9 - CHRONIC KIDNEY DISEASE, UNSPECIFIED (4) Anxiety Code(s): F41.9 - ANXIETY DISORDER, UNSPECIFIED (5) Ascites Code(s): R18.8 - OTHER ASCITES Qualifiers: Ascites type: due to alcoholic cirrhosis Qualified Code(s): K70.31 - Alcoholic cirrhosis of liver with ascites (6) Diabetes mellitus, insulin dependent (IDDM), uncontrolled Code(s): E10.65 - TYPE 1 DIABETES MELLITUS WITH HYPERGLYCEMIA (7) Esophageal varices Code(s): I85.00 - ESOPHAGEAL VARICES WITHOUT BLEEDING (8) Gastric varix Code(s): I86.4 - GASTRIC VARICES (9) Hepatitis C virus infection Code(s): B19.20 - UNSPECIFIED VIRAL HEPATITIS C WITHOUT HEPATIC COMA (10) Lymphoma Code(s): C85.90 - NON-HODGKIN LYMPHOMA, UNSPECIFIED, UNSPECIFIED SITE (12) Pacemaker Code(s): Z95.0 - PRESENCE OF CARDIAC PACEMAKER (13) Pleural effusion on right Code(s): J90 - PLEURAL EFFUSION, NOT ELSEWHERE CLASSIFIED (14) Thrombocytopenia Code(s): D69.6 - THROMBOCYTOPENIA, UNSPECIFIED (15) Atrial fibrillation with rapid ventricular response Code(s): I48.91 - UNSPECIFIED ATRIAL FIBRILLATION (16) Portal hypertension Code(s): K76.6 - PORTAL HYPERTENSION Assessment/Plan 1. Atrial fibrillation with rapid ventricular response currently in nsr 2. CAD S/P IA, S/P PCI/stent, angina pectoris 3. S/P PPM 4. HTN 5. IDDM 6. Hepatic cirrhosis/hepatitis C/ascites/Portal hypertenson/esophageal varices S /P paracentesis 7. History of pleural effusion 8. Substance abuse on Methadone 9. History of B cell lymphoma 10. Thrombocytopenia 11. COPD 12. History of GI bleed due to esophageal and gastric varices 13. History of sub-arrachnoid hemorrhage PLAN: 1. rate control 2. Not an ideal candidate for intermediate accountant anticoagulation in view of liver disease , esophageal and gastric varices, GI bleed and intracranial bleed. 3. Continue Aldactone,lasix [address] COLEY
[2016-12-18] MEDS: ZOLPIDEM TARTRATE 5 MG TABLET PO PRN (21:23)
[2016-12-18] MEDS: LACTULOSE 20 GM/30 ML UDC (FOR ORAL USE ONLY) PO PRN (21:30)
[2016-12-19] MEDS: METHADONE HCL 10 MG TABLET PO SCH (06:10)
[2016-12-19] MEDS: INSULIN DETEMIR 100 UNITS/ML MDV SQ SCH ×2 (06:10→22:19)
[2016-12-19] MEDS: INSULIN SLIDING SCALE (NOVOLOG) 1 VIAL SQ SCH ×4 (06:10→22:20)
--- NOTE | 2016-12-19 09:23 | PN ---
Progress Note (short form) - Note Progress Note: PULMONARY Breathing remains improved. No cough or wheezing. No fevers or chills. Last Vital Signs Temp Pulse Resp BP Pulse Ox 98.2 F 73 16 120/74 99 12/19/16 06:00 12/19/16 06:00 12/19/16 06:00 12/19/16 06:00 12/18/16 22:00 Gen: NAD at rest Heart: RRR Lung: decreased breath sounds right 2/3 up Abd: soft, nontender Ext: + edema improving CBC, BMP 12/16/16 05:35 12/16/16 05:35 Active Medications Furosemide (Lasix -) 40 mg PO DAILY [facility] Last Admin: 12/18/16 09:53 Dose: 40 mg Gabapentin (Neurontin -) 100 mg PO BID [facility] Last Admin: 12/18/16 21:24 Dose: 100 mg Insulin Aspart (Novolog Vial Sliding Scale -) 1 vial SQ ACHS [facility] PRN Reason: Protocol Last Admin: 12/19/16 06:10 Dose: Not Given Insulin Detemir (Levemir Vial) 20 units SQ HS [facility] Last Admin: 12/18/16 21:24 Dose: 20 units Insulin Detemir (Levemir Vial) 30 units SQ AM [facility] Last Admin: 12/19/16 06:10 Dose: 30 units Lactulose (Cephulac (Oral Use)) 30 gm PO QID PRN PRN Reason: CONSTIPATION Last Admin: 12/18/16 21:30 Dose: 30 gm Metoprolol Tartrate (Lopressor -) 25 mg PO BID [facility] Last Admin: 12/18/16 21:23 Dose: 25 mg Pantoprazole Sodium (Protonix -) 40 mg PO DAILY [facility] Last Admin: 12/18/16 09:54 Dose: 40 mg Spironolactone (Aldactone -) 50 mg PO DAILY [facility] Last Admin: 12/18/16 09:52 Dose: 50 mg Zolpidem Tartrate (Ambien -) 10 mg PO HS PRN PRN Reason: INSOMNIA Last Admin: 12/18/16 21:23 Dose: 10 mg A/P Liver cirrhosis Hep C Esophageal Varices Thrombocytopenia Coagulopathy Portal Hypertension Pleural Effusion likely Hepatic Hydrothorax Paroxysmal Atrial Fibrillation CAD HTN DM - titrate lasix, aldactone - monitor coags, platelets - O2 as needed - repeat CXR if symptomatic - DVT prophylaxis
[2016-12-19] MEDS: SPIRONOLACTONE 25 MG TABLET (FP) PO SCH (09:27)
[2016-12-19] MEDS: GABAPENTIN 100 MG CAPSULE (FP) PO SCH ×2 (09:27→22:20)
[2016-12-19] MEDS: FUROSEMIDE 40 MG TABLET (FP) PO SCH (09:27)
[2016-12-19] MEDS: METOPROLOL TARTRATE 25 MG TABLET (FP) PO SCH ×2 (09:27→22:20)
[2016-12-19] MEDS: PANTOPRAZOLE 40 MG TABLET (FP) PO SCH (09:27)
[2016-12-19] MEDS ORDERED: INSULIN (NOVOLOG) ASPART 100 UNITS/ML 10ML VIAL ONE ×2 (17:27→21:43)
--- NOTE | 2016-12-19 17:50 | PN ---
Progress Note (short form) - Note Progress Note: NEUROLOGY FOLLOW-UP: Events reviewed. Patient examined. Pt. notes Right leg strength, balance and walking are much improved. Still C/O Numbness Right foot. Plans on D/C in the morning. Exam: R ankle dorsiflexion, inversion, eversion now 4/5. Elevates on R toes (>4+/5). Both AJ's absent Reduced vibration both feet. Romberg+ Gait, much improved, mild steppage on the right. IMP: Doing well s/p compressive Sciatic mononeuropathy. Suggest: Stable for discharge with a cane. Thank romaine fontenot very much, Eddie Pereira MD
[2016-12-19] MEDS: ZOLPIDEM TARTRATE 5 MG TABLET PO PRN (22:20)
--- NOTE | 2016-12-19 22:25 | PN ---
Progress Note, Physician History of Present Illness: Denies dyspnea post thoracentesis and paracentesis. - Current Medication List Current Medications: Active Medications Furosemide (Lasix -) 40 mg PO DAILY [facility] Last Admin: 12/19/16 09:27 Dose: 40 mg Gabapentin (Neurontin -) 100 mg PO BID [facility] Last Admin: 12/19/16 22:20 Dose: 100 mg Insulin Aspart (Novolog Vial Sliding Scale -) 1 vial SQ ACHS [facility] PRN Reason: Protocol Last Admin: 12/19/16 22:20 Dose: 2 units Insulin Detemir (Levemir Vial) 20 units SQ HS [facility] Last Admin: 12/19/16 22:19 Dose: 20 units Insulin Detemir (Levemir Vial) 30 units SQ AM [facility] Last Admin: 12/19/16 06:10 Dose: 30 units Lactulose (Cephulac (Oral Use)) 30 gm PO QID PRN PRN Reason: CONSTIPATION Last Admin: 12/18/16 21:30 Dose: 30 gm Metoprolol Tartrate (Lopressor -) 25 mg PO BID [facility] Last Admin: 12/19/16 22:20 Dose: 25 mg Pantoprazole Sodium (Protonix -) 40 mg PO DAILY [facility] Last Admin: 12/19/16 09:27 Dose: 40 mg Spironolactone (Aldactone -) 50 mg PO DAILY [facility] Last Admin: 12/19/16 09:27 Dose: 50 mg Zolpidem Tartrate (Ambien -) 10 mg PO HS PRN PRN Reason: INSOMNIA Last Admin: 12/19/16 22:20 Dose: 10 mg - Objective Vital Signs: Vital Signs Temperature 98.7 F 12/19/16 17:05 Pulse Rate 77 12/19/16 17:05 Respiratory Rate 16 12/19/16 17:05 Blood Pressure 132/90 12/19/16 17:05 O2 Sat by Pulse Oximetry (%) 95 12/19/16 11:55 Constitutional: Yes: No Distress, Calm Neck: Yes: Supple Cardiovascular: Yes: Pulse Irregular Respiratory: Yes: Regular, Diminished Gastrointestinal: Yes: Normal Bowel Sounds, Soft Edema: Yes Labs: CBC, BMP 12/16/16 05:35 12/16/16 05:35 INR, PTT INR 1.42 (0.82-1.09) H 12/15/16 05:35 Fibrinogen 295.0 mg/dL (238-498) D 12/15/16 05:35 Problem List - Problems (1) Atrial fibrillation with rapid ventricular response Code(s): I48.91 - UNSPECIFIED ATRIAL FIBRILLATION (2) Cirrhosis of liver Code(s): K74.60 - UNSPECIFIED CIRRHOSIS OF LIVER Qualifiers: Hepatic cirrhosis type: unspecified hepatic cirrhosis Ascites presence : without ascites Qualified Code(s): K74.60 - Unspecified cirrhosis of liver (3) Portal hypertension Code(s): K76.6 - PORTAL HYPERTENSION (4) Type 2 diabetes mellitus with other diabetic neurological complication Code(s): E11.49 - TYPE 2 DIABETES W OTH DIABETIC NEUROLOGICAL COMPLICATION (5) Sedative dependence Code(s): F13.20 - SEDATIVE, HYPNOTIC OR ANXIOLYTIC DEPENDENCE, UNCOMPLICATED (6) Coagulopathy Code(s): D68.9 - COAGULATION DEFECT, UNSPECIFIED (7) Edema Code(s): R60.9 - EDEMA, UNSPECIFIED Qualifiers: Edema type: unspecified Qualified Code(s): R60.9 - Edema, unspecified (8) Esophageal varices Code(s): I85.00 - ESOPHAGEAL VARICES WITHOUT BLEEDING Qualifiers: Esophageal varices type: secondary Esophageal varices bleeding: without bleeding Qualified Code(s): I85.10 - Secondary esophageal varices without bleeding (9) GI bleed Code(s): K92.2 - GASTROINTESTINAL HEMORRHAGE, UNSPECIFIED (10) Gastric varix Code(s): I86.4 - GASTRIC VARICES (11) Hydrothorax Code(s): J94.8 - OTHER SPECIFIED PLEURAL CONDITIONS (12) Inguinal hernia Code(s): K40.90 - UNIL INGUINAL HERNIA, W/O OBST OR GANGR, NOT SPCF RECUR (13) Liver failure Code(s): K72.90 - HEPATIC FAILURE, UNSPECIFIED WITHOUT COMA Qualifiers: Liver failure chronicity: chronic Hepatic coma status: without hepatic coma Qualified Code(s): K72.10 - Chronic hepatic failure without coma (15) Pacemaker Code(s): Z95.0 - PRESENCE OF CARDIAC PACEMAKER (16) Pancytopenia Code(s): D61.818 - OTHER PANCYTOPENIA (17) Pleural effusion associated with hepatic disorder Code(s): K76.9 - LIVER DISEASE, UNSPECIFIED J91.8 - PLEURAL EFFUSION IN OTHER CONDITIONS CLASSIFIED ELSEWHERE (18) Shortness of breath Code(s): R06.02 - SHORTNESS OF BREATH Assessment/Plan 1. Paroxysmal atrial fibrillation now in sinus rhythm 2. CAD, history of [place], S/P PCI/stent, angina pectoris 3. Sick sinus syndrome S/P PPM ([employer]) 4. HTN 5. IDDM 6. Hepatic cirrhosis/hepatitis C/ascites/Portal hypertenson/esophageal varices S /P paracentesis 7. 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 Substance abuse on Methadone, but has used Heroine recently 9. History of B cell lymphoma 10. Thrombocytopenia and coagulopathy due to above issues 11. COPD 12. History of GI bleed due to esophageal and gastric varices 13. History of subarrachnoid hemorrhage 14. Right inguinal hernia, not ideal operative candidate PLAN: 1. Continue Lopressor 25 mg BID and uptitrate as tolerated 2. Not an ideal candidate for senior care anticoagulation in view of liver disease , esophageal and gastric varices, GI bleed and intracranial bleed. 3. Continue Spironolactone 50 qd and Lasix 40 qd, Lactulose, GI prophylaxis
[2016-12-20] MEDS: INSULIN DETEMIR 100 UNITS/ML MDV SQ SCH (06:46)
[2016-12-20] MEDS: INSULIN SLIDING SCALE (NOVOLOG) 1 VIAL SQ SCH ×2 (06:46→12:12)
[2016-12-20] MEDS: METOPROLOL TARTRATE 25 MG TABLET (FP) PO SCH (09:25)
[2016-12-20] MEDS: FUROSEMIDE 40 MG TABLET (FP) PO SCH (09:25)
[2016-12-20] MEDS: PANTOPRAZOLE 40 MG TABLET (FP) PO SCH (09:25)
[2016-12-20] MEDS: GABAPENTIN 100 MG CAPSULE (FP) PO SCH (09:25)
[2016-12-20] MEDS: SPIRONOLACTONE 25 MG TABLET (FP) PO SCH (09:25)
--- NOTE | 2016-12-20 10:56 | PN ---
Progress Note (short form) - Note Progress Note: PULMONARY Breathing remains improved. Denies cough or wheezing. No fevers or chills. Last Vital Signs Temp Pulse Resp BP Pulse Ox 97.7 F 78 18 124/81 95 12/20/16 06:00 12/20/16 06:00 12/20/16 06:00 12/20/16 06:00 12/19/16 21:00 Gen: NAD at rest Heart: RRR Lung: decreased breath sounds right 2/3 up Abd: soft, nontender Ext: + edema improving CBC, BMP 12/16/16 05:35 12/16/16 05:35 Active Medications Furosemide (Lasix -) 40 mg PO DAILY [facility] Last Admin: 12/20/16 09:25 Dose: 40 mg Gabapentin (Neurontin -) 100 mg PO BID [facility] Last Admin: 12/20/16 09:25 Dose: 100 mg Insulin Aspart (Novolog Vial Sliding Scale -) 1 vial SQ ACHS [facility] PRN Reason: Protocol Last Admin: 12/20/16 06:46 Dose: Not Given Insulin Detemir (Levemir Vial) 20 units SQ HS [facility] Last Admin: 12/19/16 22:19 Dose: 20 units Insulin Detemir (Levemir Vial) 30 units SQ AM [facility] Last Admin: 12/20/16 06:46 Dose: 30 units Lactulose (Cephulac (Oral Use)) 30 gm PO QID PRN PRN Reason: CONSTIPATION Last Admin: 12/18/16 21:30 Dose: 30 gm Metoprolol Tartrate (Lopressor -) 25 mg PO BID [facility] Last Admin: 12/20/16 09:25 Dose: 25 mg Pantoprazole Sodium (Protonix -) 40 mg PO DAILY [facility] Last Admin: 12/20/16 09:25 Dose: 40 mg Spironolactone (Aldactone -) 50 mg PO DAILY [facility] Last Admin: 12/20/16 09:25 Dose: 50 mg Zolpidem Tartrate (Ambien -) 10 mg PO HS PRN PRN Reason: INSOMNIA Last Admin: 12/19/16 22:20 Dose: 10 mg A/P Liver cirrhosis Hep C Esophageal Varices Thrombocytopenia Coagulopathy Portal Hypertension Pleural Effusion likely Hepatic Hydrothorax Paroxysmal Atrial Fibrillation CAD HTN DM - titrate lasix, aldactone - monitor coags, platelets - O2 as needed - repeat CXR if symptomatic - DVT prophylaxis
--- NOTE | 2016-12-20 11:00 | PN ---
Progress Note, Physician History of Present Illness: HAD CONFUSION THIS AM WHICH HAS IMPROVED - Current Medication List Current Medications: Active Medications Furosemide (Lasix -) 40 mg PO DAILY [facility] Last Admin: 12/20/16 09:25 Dose: 40 mg Gabapentin (Neurontin -) 100 mg PO BID [facility] Last Admin: 12/20/16 09:25 Dose: 100 mg Insulin Aspart (Novolog Vial Sliding Scale -) 1 vial SQ ACHS [facility] PRN Reason: Protocol Last Admin: 12/20/16 06:46 Dose: Not Given Insulin Detemir (Levemir Vial) 20 units SQ HS [facility] Last Admin: 12/19/16 22:19 Dose: 20 units Insulin Detemir (Levemir Vial) 30 units SQ AM [facility] Last Admin: 12/20/16 06:46 Dose: 30 units Lactulose (Cephulac (Oral Use)) 30 gm PO QID PRN PRN Reason: CONSTIPATION Last Admin: 12/18/16 21:30 Dose: 30 gm Metoprolol Tartrate (Lopressor -) 25 mg PO BID [facility] Last Admin: 12/20/16 09:25 Dose: 25 mg Pantoprazole Sodium (Protonix -) 40 mg PO DAILY [facility] Last Admin: 12/20/16 09:25 Dose: 40 mg Spironolactone (Aldactone -) 50 mg PO DAILY [facility] Last Admin: 12/20/16 09:25 Dose: 50 mg Zolpidem Tartrate (Ambien -) 10 mg PO HS PRN PRN Reason: INSOMNIA Last Admin: 12/19/16 22:20 Dose: 10 mg - Objective Vital Signs: Vital Signs Temperature 97.7 F 12/20/16 06:00 Pulse Rate 78 12/20/16 06:00 Respiratory Rate 18 12/20/16 06:00 Blood Pressure 124/81 12/20/16 06:00 O2 Sat by Pulse Oximetry (%) 95 12/19/16 21:00 Cardiovascular: Yes: Regular Rate and Rhythm Respiratory: Yes: Regular, CTA Bilaterally Gastrointestinal: Yes: Normal Bowel Sounds, Soft, Ascites Labs: CBC, BMP 12/16/16 05:35 12/16/16 05:35 INR, PTT INR 1.42 (0.82-1.09) H 12/15/16 05:35 Fibrinogen 295.0 mg/dL (238-498) D 12/15/16 05:35 Problem List - Problems (1) Hyperglycemia Code(s): R73.9 - HYPERGLYCEMIA, UNSPECIFIED (2) Diabetes mellitus, insulin dependent (IDDM), uncontrolled Code(s): E10.65 - TYPE 1 DIABETES MELLITUS WITH HYPERGLYCEMIA Qualifiers: Diabetes mellitus complication status: without complication Qualified Code(s): E10.9 - Type 1 diabetes mellitus without complications (3) Cirrhosis of liver Code(s): K74.60 - UNSPECIFIED CIRRHOSIS OF LIVER Qualifiers: Hepatic cirrhosis type: unspecified hepatic cirrhosis Ascites presence : with ascites Qualified Code(s): K74.60 - Unspecified cirrhosis of liver (4) CKD (chronic kidney disease) Code(s): N18.9 - CHRONIC KIDNEY DISEASE, UNSPECIFIED Qualifiers: (5) Lymphoma Code(s): C85.90 - NON-HODGKIN LYMPHOMA, UNSPECIFIED, UNSPECIFIED SITE (6) Thrombocytopenia Code(s): D69.6 - THROMBOCYTOPENIA, UNSPECIFIED (7) Progressive anemia Code(s): D64.9 - ANEMIA, UNSPECIFIED (8) Right inguinal hernia Code(s): K40.90 - UNIL INGUINAL HERNIA, W/O OBST OR GANGR, NOT SPCF RECUR (9) Radiculopathy Code(s): M54.10 - RADICULOPATHY, SITE UNSPECIFIED (10) Ascites Code(s): R18.8 - OTHER ASCITES Qualifiers: Ascites type: due to alcoholic cirrhosis Qualified Code(s): K70.31 - Alcoholic cirrhosis of liver with ascites (11) Pleural effusion Code(s): J90 - PLEURAL EFFUSION, NOT ELSEWHERE CLASSIFIED (12) Hepatic encephalopathy Assessment/Plan: IMPROVED Code(s): K72.90 - HEPATIC FAILURE, UNSPECIFIED WITHOUT COMA Assessment/Plan 1) Hyperglycemia Assessment/Plan: Laboratory Tests 12/13/16 12/13/16 12/13/16 11:29 16:30 21:09 POC Glucometer 141 169 179 12/14/16 06:17 POC Glucometer 73 BETTER INSULIN ENDO Code(s): R73.9 - HYPERGLYCEMIA, UNSPECIFIED (2) Diabetes mellitus, insulin dependent (IDDM), uncontrolled Assessment/Plan: ABOVE Code(s): E10.65 - TYPE 1 DIABETES MELLITUS WITH HYPERGLYCEMIA (3) Cirrhosis of liver Assessment/Plan: GI CONSULTED INR 1.5 -> F/U AMMONIA -> F/U LEVEL TODAY F/U PARACENTESIS Code(s): K74.60 - UNSPECIFIED CIRRHOSIS OF LIVER Qualifiers: Hepatic cirrhosis type: unspecified hepatic cirrhosis Ascites presence : without ascites Qualified Code(s): K74.60 - Unspecified cirrhosis of liver (4) CKD (chronic kidney disease) Code(s): N18.9 - CHRONIC KIDNEY DISEASE, UNSPECIFIED Qualifiers: (5) Lymphoma Assessment/Plan: ONC ON CASE Code(s): C85.90 - NON-HODGKIN LYMPHOMA, UNSPECIFIED, UNSPECIFIED SITE (6) Thrombocytopenia Assessment/Plan: MONITOR PLT 70 > F/U Code(s): D69.6 - THROMBOCYTOPENIA, UNSPECIFIED (7) Progressive anemia Assessment/Plan: FOLLOW LABS W/U ORDERED Code(s): D64.9 - ANEMIA, UNSPECIFIED (8) Right inguinal hernia Assessment/Plan: NOT SURE IF PAIN RELATED TO HERNIA VS RADICULPATHY PT HIGH RISK FOR ANY PROCEDURE SURGERY F/U SINCE PLAT BETTER AND PT IN PAIN Code(s): K40.90 - UNIL INGUINAL HERNIA, W/O OBST OR GANGR, NOT SPCF RECUR (9) Radiculopathy Assessment/Plan: PT EMG CT SCAN DILUADID WITH CAUTION NEURO Code(s): M54.10 - RADICULOPATHY, SITE UNSPECIFIED (8) Chest pain on breathing Code(s): R07.1 - CHEST PAIN ON BREATHING CASE D/W HOSPITALIST CARDIO ON CASE CPK NEG TROP INCed -> F/U (9) Opiate dependence Code(s): F11.20 - OPIOID DEPENDENCE, UNCOMPLICATED Qualifiers: Substance use status: with unspecified opioid-induced disorder Qualified Code(s): F11.29 - Opioid dependence with unspecified opioid-induced disorder ADDICTION Rx ON CASE SNIFFING HEROIN DURING THIS ADMISSION MMTP 10 -> 15 DAILY
[2016-12-20 11:08] VITALS: PULSE 82
[2016-12-20 11:21] LABS: BASOPHIL 0.4 % (0-2.0); EOSINOPHIL 0.7 % (0-4.5); MCH 32.9 pg (25.7-33.7); MCHC 34.2 g/dl (32.0-35.9); MEAN CELL VOLUME 96.2 fl (80-96); NEUTROPHILS 74.4 % (42.8-82.8); PLATELET COUNT 70 K/MM3 (134-434); RDW 16.3 % (11.9-15.9); WHITE BLOOD COUNT 4.6 K/mm3 (4.0-10.0)
--- NOTE | 2016-12-20 11:33 | PN ---
Progress Note, Physician History of Present Illness: Denies dyspnea post thoracentesis and paracentesis. - Current Medication List Current Medications: Active Medications Furosemide (Lasix -) 40 mg PO DAILY [facility] Last Admin: 12/20/16 09:25 Dose: 40 mg Gabapentin (Neurontin -) 100 mg PO BID [facility] Last Admin: 12/20/16 09:25 Dose: 100 mg Insulin Aspart (Novolog Vial Sliding Scale -) 1 vial SQ ACHS [facility] PRN Reason: Protocol Last Admin: 12/20/16 06:46 Dose: Not Given Insulin Detemir (Levemir Vial) 20 units SQ HS [facility] Last Admin: 12/19/16 22:19 Dose: 20 units Insulin Detemir (Levemir Vial) 30 units SQ AM [facility] Last Admin: 12/20/16 06:46 Dose: 30 units Lactulose (Cephulac (Oral Use)) 30 gm PO QID PRN PRN Reason: CONSTIPATION Last Admin: 12/18/16 21:30 Dose: 30 gm Metoprolol Tartrate (Lopressor -) 25 mg PO BID [facility] Last Admin: 12/20/16 09:25 Dose: 25 mg Pantoprazole Sodium (Protonix -) 40 mg PO DAILY [facility] Last Admin: 12/20/16 09:25 Dose: 40 mg Spironolactone (Aldactone -) 50 mg PO DAILY [facility] Last Admin: 12/20/16 09:25 Dose: 50 mg Zolpidem Tartrate (Ambien -) 10 mg PO HS PRN PRN Reason: INSOMNIA Last Admin: 12/19/16 22:20 Dose: 10 mg - Objective Vital Signs: Vital Signs Temperature 97.7 F 12/20/16 06:00 Pulse Rate 82 12/20/16 11:08 Respiratory Rate 18 12/20/16 06:00 Blood Pressure 124/81 12/20/16 06:00 O2 Sat by Pulse Oximetry (%) 99 12/20/16 11:08 Constitutional: Yes: No Distress, Calm Neck: Yes: Supple Cardiovascular: Yes: Regular Rate and Rhythm Respiratory: Yes: Regular, Diminished Gastrointestinal: Yes: Normal Bowel Sounds, Soft Edema: No Labs: CBC, BMP 12/20/16 11:16 INR, PTT INR 1.42 (0.82-1.09) H 12/15/16 05:35 Fibrinogen 295.0 mg/dL (238-498) D 12/15/16 05:35 Problem List - Problems (1) Atrial fibrillation with rapid ventricular response Code(s): I48.91 - UNSPECIFIED ATRIAL FIBRILLATION (2) Cirrhosis of liver Code(s): K74.60 - UNSPECIFIED CIRRHOSIS OF LIVER Qualifiers: Hepatic cirrhosis type: unspecified hepatic cirrhosis Ascites presence : without ascites Qualified Code(s): K74.60 - Unspecified cirrhosis of liver (3) Portal hypertension Code(s): K76.6 - PORTAL HYPERTENSION (4) Type 2 diabetes mellitus with other diabetic neurological complication Code(s): E11.49 - TYPE 2 DIABETES W OTH DIABETIC NEUROLOGICAL COMPLICATION (5) Sedative dependence Code(s): F13.20 - SEDATIVE, HYPNOTIC OR ANXIOLYTIC DEPENDENCE, UNCOMPLICATED (6) Coagulopathy Code(s): D68.9 - COAGULATION DEFECT, UNSPECIFIED (7) Edema Code(s): R60.9 - EDEMA, UNSPECIFIED Qualifiers: Edema type: unspecified Qualified Code(s): R60.9 - Edema, unspecified (8) Esophageal varices Code(s): I85.00 - ESOPHAGEAL VARICES WITHOUT BLEEDING Qualifiers: Esophageal varices type: secondary Esophageal varices bleeding: without bleeding Qualified Code(s): I85.10 - Secondary esophageal varices without bleeding (9) GI bleed Code(s): K92.2 - GASTROINTESTINAL HEMORRHAGE, UNSPECIFIED (10) Gastric varix Code(s): I86.4 - GASTRIC VARICES (11) Hydrothorax Code(s): J94.8 - OTHER SPECIFIED PLEURAL CONDITIONS (12) Inguinal hernia Code(s): K40.90 - UNIL INGUINAL HERNIA, W/O OBST OR GANGR, NOT SPCF RECUR (13) Liver failure Code(s): K72.90 - HEPATIC FAILURE, UNSPECIFIED WITHOUT COMA Qualifiers: Liver failure chronicity: chronic Hepatic coma status: without hepatic coma Qualified Code(s): K72.10 - Chronic hepatic failure without coma (15) Pacemaker Code(s): Z95.0 - PRESENCE OF CARDIAC PACEMAKER (16) Pancytopenia Code(s): D61.818 - OTHER PANCYTOPENIA (17) Pleural effusion associated with hepatic disorder Code(s): K76.9 - LIVER DISEASE, UNSPECIFIED J91.8 - PLEURAL EFFUSION IN OTHER CONDITIONS CLASSIFIED ELSEWHERE (18) Shortness of breath Code(s): R06.02 - SHORTNESS OF BREATH Assessment/Plan 1. Paroxysmal atrial fibrillation now in sinus rhythm 2. CAD, history of [place], S/P PCI/stent, angina pectoris 3. Sick sinus syndrome S/P PPM ([employer]) 4. HTN 5. IDDM 6. Hepatic cirrhosis/hepatitis C/ascites/Portal hypertenson/esophageal varices S /P paracentesis 7. 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 Substance abuse on Methadone, but has used Heroine recently 9. History of B cell lymphoma 10. Thrombocytopenia and coagulopathy due to above issues 11. COPD 12. History of GI bleed due to esophageal and gastric varices 13. History of subarrachnoid hemorrhage 14. Right inguinal hernia, not ideal operative candidate PLAN: 1. Continue Lopressor 25 mg BID and uptitrate as tolerated 2. Not an ideal candidate for jail anticoagulation in view of liver disease , esophageal and gastric varices, GI bleed and intracranial bleed. 3. Continue Spironolactone 50 qd and Lasix 40 qd, Lactulose, GI prophylaxis
[2016-12-20 11:48] LABS: BILIRUBIN,TOTAL 1.8 mg/dL (0.2-1.0); CREATININE 1.5 mg/dL (0.7-1.3); TOT PROT 7.4 g/dl (6.4-8.2)
[2016-12-20 12:38] VITALS: BP 130/85; TEMP 98.7
== END 2016-12-20 14:07 | disposition home or self-care (01) | DRG 442 ==
LOC: JER 15:12 → JERBED 19:49 → J8W 22:48 → OBSVTOIN 12-11 09:03 → J4W 12-12 09:21 → J5S 12-17 15:10
PROVIDERS: ADMIT Family Medicine; ATTEND Family Medicine
PROC: 0W993ZX Drainage of Right Pleural Cavity, Percutaneous Approach, Diagnostic (ICD-10-PCS; principal; 2016-12-15)
PROC: 0W9G3ZX Drainage of Peritoneal Cavity, Percutaneous Approach, Diagnostic (ICD-10-PCS; 2016-12-15)
DX: K72.90 Hepatic failure, unspecified without coma (principal); K76.6 Portal hypertension; J90 Pleural effusion, not elsewhere classified; C85.90 Non-Hodgkin lymphoma, unspecified, unspecified site; D68.4 Acquired coagulation factor deficiency; J94.8 Other specified pleural conditions; R18.8 Other ascites; N17.9 Acute kidney failure, unspecified; D64.9 Anemia, unspecified; Z95.0 Presence of cardiac pacemaker; I25.2 Old myocardial infarction; I25.10 Atherosclerotic heart disease of native coronary artery without angina pectoris; Z95.5 Presence of coronary angioplasty implant and graft; J44.9 Chronic obstructive pulmonary disease, unspecified; D69.6 Thrombocytopenia, unspecified; K40.90 Unilateral inguinal hernia, without obstruction or gangrene, not specified as recurrent; E11.43 Type 2 diabetes mellitus with diabetic autonomic (poly)neuropathy; E11.65 Type 2 diabetes mellitus with hyperglycemia; K31.84 Gastroparesis; Z79.4 Long term (current) use of insulin; F41.9 Anxiety disorder, unspecified; Z87.898 Personal history of other specified conditions; M54.10 Radiculopathy, site unspecified; M79.605 Pain in left leg; M79.604 Pain in right leg; F11.90 Opioid use, unspecified, uncomplicated; I12.9 Hypertensive chronic kidney disease with stage 1 through stage 4 chronic kidney disease, or unspecified chronic kidney disease; E11.22 Type 2 diabetes mellitus with diabetic chronic kidney disease; N18.9 Chronic kidney disease, unspecified; K74.60 Unspecified cirrhosis of liver; B19.20 Unspecified viral hepatitis C without hepatic coma
CPT/HCPCS: 36415; 71010-TC; 72131-TC; 74176-TC; 76942; 76942-TC; 80048; 80053; 80307; 81003; 81015; 82042; 82140; 82150; 82272; 82550; 82553; 82728; 82945; 83540; 83550; 83615; 83735; 84157; 84478; 84484; 85025; 85027; 85384; 85610; 85730; 87070; 87075; 87102; 87116; 87205; 87206; 87210; 87899; 88108; 88305-TC; 89050; 89051; 93005; 93010; 93306-TC; 94640; 95860-TC; 97116-GP; 97161-GP; 99284-25; G0378; Q9967

== ENCOUNTER 2016-12-31 08:10 | Inpatient (IN) | payer OTHER ==
[2016-12-31] MEDS ORDERED: SODIUM CHLORIDE 1,000 ML IV STA (08:21)
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
[2016-12-31 09:18] LABS: VENOUS PH 7.33 (7.32-7.42)
[2016-12-31 09:19] LABS: VENOUS BLOOD GAS HCO3 26.3 meq/L (19-25)
[2016-12-31 09:27] LABS: BASOPHIL 0.7 % (0-2.0); EOSINOPHIL 1.5 % (0-4.5); MCH 33.9 pg (25.7-33.7); MCHC 34.2 g/dl (32.0-35.9); MEAN CELL VOLUME 99.1 fl (80-96); MEAN PLT VOLUME 9.3 fl (7.5-11.1); PLATELET COUNT 40 K/MM3 (134-434); RDW 17.2 % (11.9-15.9); WHITE BLOOD COUNT 4.6 K/mm3 (4.0-10.0)
[2016-12-31 09:49] LABS: ALBUMIN 2.3 g/dl (3.4-5.0); CALCIUM 8.1 mg/dL (8.5-10.1); CREATININE 1.6 mg/dL (0.7-1.3)
[2016-12-31 09:52] LABS: TOT PROT 8.3 g/dl (6.4-8.2); TROPONIN I 0.04 ng/ml (0.00-0.05)
[2016-12-31] MEDS ORDERED: LACTULOSE 20 GM/30 ML UDC (FOR ORAL USE ONLY) PO ONE (10:19)
--- NOTE | 2016-12-31 10:26 | EKG ---
Test Reason : Blood Pressure : / mmHG Vent. Rate : 069 BPM Atrial Rate : 069 BPM P-R Int : 180 ms QRS Dur : 086 ms QT Int : 446 ms P-R-T Axes : 037 -28 104 degrees QTc Int : 477 ms NORMAL SINUS RHYTHM MINIMAL VOLTAGE CRITERIA FOR LVH, MAY BE NORMAL VARIANT INFERIOR INFARCT (CITED ON OR BEFORE 07-DEC-2016) T WAVE ABNORMALITY, CONSIDER LATERAL ISCHEMIA ABNORMAL ECG Confirmed by PURNIMA OLIVER, EDWARD ([id number]) on 12/31/2016 10:26:39 AM Referred By: Confirmed By:EDWARD FELTON MD
[2016-12-31 10:32] LABS: INR 1.42 (0.82-1.09); PROTHROMBIN TIME (PATIENT) 15.7 SEC (9.98-11.88)
[2016-12-31 10:35] LABS: ACTIVATED PTT 31.6 SECONDS (26.9-34.4)
[2016-12-31] MEDS ORDERED: LACTULOSE 20 GM/30 ML UDC (FOR ORAL USE ONLY) ONE (11:39)
[2016-12-31] MEDS ORDERED: LEVOFLOXACIN 500 MG IVPB 100 ML IVPB SCH (13:00)
--- NOTE | 2016-12-31 13:42 | HP ---
Admitting History and Physical - Primary Care Physician PCP: Jag Thompson - Admission Chief Complaint: legs gave way- s/p fall History of Present Illness: The patient is a 57 year old male with a past medical hx of HTN, hyperlipidemia , coronary artery disease, type 2 diabetes (on insulin), end stage liver disease (secondary to hepatitis C), hx of hepatic encephalopathy, and lymphoma who presents to the ED via EMS for evaluation of an unwitnessed fall this morning. Per EMS, the patient was found by his neighbor on the floor of his home and called EMS. The patient notes he was in his house this morning when he lost his balance and fell onto the floor. He states he then called his neighbor. He denies hitting his head and loss of consciousness. He states he ate breakfast this morning, which consisted of eggs, corn, orange juice, and iced tea. The patient reports he usually checks his blood sugar levels every day , but did not check his levels this morning. The patient notes he was in his usual state of health up until this morning and denies any recent illnesses. 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1)) Heme/Onc: Yes: Anemia, Thrombocytopenia Psych: Yes: Addictions (hx of polysubstance abuse & IVDA on maintenance Methadone), Anxiety Endocrine: Yes: Diabetes Mellitus (insulin-dependent) - Past Surgical History Past Surgical History: Yes: Permanent Pacemaker, Stent, Upper Endoscopy (with gastric varices/sclerotherapy) - Smoking History Smoking history: Current every day smoker Have you smoked in the past 12 months: Yes Aproximately how many cigarettes per day: 5 - Alcohol/Substance Use Hx Alcohol Use: No History of Substance Use: reports: Heroin (on methadone) - Social History ADL: Independent Occupation: not employed History of Recent Travel: No Home Medications - Allergies Allergies/Adverse Reactions: Allergies Allergy/AdvReac Type Severity Reaction Status Date / Time nalbuphine HCl [From Nubain] Allergy Verified 12/31/16 08:19 octreotide AdvReac Verified 12/31/16 08:19 - Home Medications Home Medications: Ambulatory Orders Albuterol 2.5/Ipratropium 0.5 [Duoneb -] 1 amp NEB Q6H PRN #120 amp 10/25/16 Furosemide [Lasix -] 40 mg PO DAILY #30 tablet 10/25/16 Pantoprazole Sodium [Protonix -] 40 mg PO DAILY #30 tablet.ec 10/25/16 Rifaximin [Xifaxan -] 550 mg PO BID #60 tablet 10/25/16 Methadone [Dolophine -] 10 mg PO DAILY 11/05/16 Insulin (Levemir) [Levemir Vial] 20 units SQ HS #0 11/08/16 Lactulose (Oral Use) [Cephulac -] 30 gm PO QID PRN #240 grams 11/08/16 Spironolactone [Aldactone -] 50 mg PO DAILY #30 tablet 11/08/16 Gabapentin [Neurontin -] 100 mg PO BID #60 capsule 12/19/16 Metoprolol Tartrate [Lopressor -] 25 mg PO BID #60 tablet 12/19/16 Rifaximin [Xifaxan -] 550 mg PO BID #20 tablet 12/31/16 Family Disease History - Family Disease History Family Disease History: Heart Disease: Father (OPEN HEART SX,), CA: Mother (BREAST CANCER,) Review of Systems - Review of Systems Respiratory: reports: Other (tacypnea) Genitourinary: reports: Testicular Swelling Musculoskeletal: reports: Other (leg swelling) Physical Examination Vital Signs: Vital Signs Temperature 98.1 F 12/31/16 12:32 Pulse Rate 70 12/31/16 13:10 Respiratory Rate 22 12/31/16 12:32 Blood Pressure 139/90 12/31/16 12:32 O2 Sat by Pulse Oximetry (%) 97 12/31/16 13:10 knows his name answers questions appropriately but delay to answer Constitutional: Yes: Calm, Pallor, Thin Neck: Yes: Other Cardiovascular: Yes: Regular Rate and Rhythm, S1, S2 Respiratory: Yes: Diminished (on right side breath sounds left side breath sounds noted) Gastrointestinal: Yes: Normal Bowel Sounds, Soft, Ascites, Distention, Hernia ( umblical hernia), Other (fluid wave) Extremities: Yes: Erythema, Other (chronic venous stasis c hanges) Edema: Yes Neurological: Yes: Alert, Oriented (to name by delay in answering questions but is able to answer appropriately), Other (weakness of right leg> left leg) Imaging - Results Chest X-ray: Report Reviewed Problem List - Problems (1) Fall Assessment/Plan: PT may need rehab Code(s): W19.XXXA - UNSPECIFIED FALL, INITIAL ENCOUNTER Qualifiers: Encounter type: initial encounter Qualified Code(s): W19.XXXA - Unspecified fall, initial encounter (2) Tachypnea Assessment/Plan: sec to fluidi n lung vs infiltrate rocephin ct chest Code(s): R06.82 - TACHYPNEA, NOT ELSEWHERE CLASSIFIED (3) Cirrhosis of liver Assessment/Plan: GIeval lactulose rifaximin Code(s): K74.60 - UNSPECIFIED CIRRHOSIS OF LIVER Qualifiers: Hepatic cirrhosis type: unspecified hepatic cirrhosis Ascites presence : with ascites Qualified Code(s): K74.60 - Unspecified cirrhosis of liver (4) Hepatic encephalopathy Assessment/Plan: laculose trend ammonia Code(s): K72.90 - HEPATIC FAILURE, UNSPECIFIED WITHOUT COMA (5) Sedative dependence Assessment/Plan: methaodone 15mg Code(s): F13.20 - SEDATIVE, HYPNOTIC OR ANXIOLYTIC DEPENDENCE, UNCOMPLICATED (6) Ascites Assessment/Plan: ultrasound liver possible paracentsis heme eval will need FFP prior to procedure and platelet count is low will need platleltet and angelo idcations Code(s): R18.8 - OTHER ASCITES Qualifiers: Ascites type: due to alcoholic cirrhosis Qualified Code(s): K70.31 - Alcoholic cirrhosis of liver with ascites (7) Edema Assessment/Plan: lasix bid Code(s): R60.9 - EDEMA, UNSPECIFIED Qualifiers: Edema type: unspecified Qualified Code(s): R60.9 - Edema, unspecified (8) Hydrothorax Assessment/Plan: ct chest to elvaluate fluid vs inliftrate pulm lasix Code(s): J94.8 - OTHER SPECIFIED PLEURAL CONDITIONS (9) Thrombocytopenia Assessment/Plan: heme Code(s): D69.6 - THROMBOCYTOPENIA, UNSPECIFIED (10) Diabetes Assessment/Plan: BGM sliding scalre hga1c levemir Code(s): E11.9 - TYPE 2 DIABETES MELLITUS WITHOUT COMPLICATIONS Qualifiers: Diabetes mellitus type: type 2
[2016-12-31] MEDS ORDERED: CEFTRIAXONE 50 ML IVPB SCH (14:30)
[2016-12-31] MEDS: FUROSEMIDE 40 MG/4 ML INJECTABLE VIAL IVPUSH SCH (14:55)
--- NOTE | 2016-12-31 15:01 | PN ---
Teaching Attending Note Name of Resident: Yun Amador ATTENDING PHYSICIAN STATEMENT I saw and evaluated the patient. I reviewed the resident's note and discussed the case with the resident. I agree with the resident's findings and plan as documented. SUBJECTIVE: Patient well known to me from multiple previous admissions. Cirrhosis, recurrent pleural effusions with multiple thoracentesis, HTN, HTN, CAD, type 2 diabetes, end stage liver disease secondary to hepatitis C, hepatic encephalopathy, and lymphoma. Admitted via the ER due to due to an unwitnessed fall this morning. He was found by his neighbor on the floor. Seen on the medical floor. Drowsy but fully oriented. Reports generalized edema over the past few weeks. No fever or chills. No hemoptysis. Intake & Output 12/28/16 12/29/16 12/30/16 12/31/16 23:59 23:59 23:59 23:59 Weight 147 lb Last Vital Signs Temp Pulse Resp BP Pulse Ox 98.1 F 70 22 139/90 97 12/31/16 12:32 12/31/16 13:10 12/31/16 12:32 12/31/16 12:32 12/31/16 13:10 Active Medications Furosemide (Lasix Injection -) 40 mg IVPUSH BID@0600,1400 [facility] Last Admin: 12/31/16 14:55 Dose: 40 mg Gabapentin (Neurontin -) 100 mg PO BID JADEN Ceftriaxone Sodium (Rocephin 1gm Ivpb (Pre-Docked)) 50 mls @ 100 mls/hr IVPB DAILY [facility] Last Admin: 12/31/16 14:55 Dose: 100 mls/hr Insulin Aspart (Novolog Vial Sliding Scale -) 1 vial SQ ACHS [facility] PRN Reason: Protocol Insulin Detemir (Levemir Vial) 20 units SQ DAILY@0800 [facility] Methadone HCl (Dolophine -) 10 mg PO DAILY@0600 JDAEN Pantoprazole Sodium (Protonix -) 40 mg PO DAILY JADEN Rifaximin (Xifaxan -) 550 mg PO BID JADEN Constitutional: Yes: Drowsy Neck: Yes: Other Cardiovascular: Yes: Regular Rate and Rhythm, S1, S2 Respiratory: Yes: Diminished on right side Gastrointestinal: Yes: Normal Bowel Sounds, Soft, Ascites, Distention, Hernia ( umblical hernia), Other (fluid wave) Extremities: Yes: Erythema, chronic venous stasis changes Edema: Yes Neurological: Yes: Drowsy, Oriented CXR: Large right effusion Problem List - Problems (1) Fall Assessment/Plan: Code(s): W19.XXXA - UNSPECIFIED FALL, INITIAL ENCOUNTER Qualifiers: Encounter type: initial encounter Qualified Code(s): W19.XXXA - Unspecified fall, initial encounter (2) Tachypnea Assessment/Plan: Code(s): R06.82 - TACHYPNEA, NOT ELSEWHERE CLASSIFIED (3) Cirrhosis of liver Assessment/Plan: Code(s): K74.60 - UNSPECIFIED CIRRHOSIS OF LIVER Qualifiers: Hepatic cirrhosis type: unspecified hepatic cirrhosis Ascites presence : with ascites Qualified Code(s): K74.60 - Unspecified cirrhosis of liver (4) Hepatic encephalopathy Assessment/Plan: Code(s): K72.90 - HEPATIC FAILURE, UNSPECIFIED WITHOUT COMA (5) Sedative dependence Assessment/Plan: Code(s): F13.20 - SEDATIVE, HYPNOTIC OR ANXIOLYTIC DEPENDENCE, UNCOMPLICATED (6) Ascites Assessment/Plan: Code(s): R18.8 - OTHER ASCITES Qualifiers: Ascites type: due to alcoholic cirrhosis Qualified Code(s): K70.31 - Alcoholic cirrhosis of liver with ascites (7) Edema Assessment/Plan: Code(s): R60.9 - EDEMA, UNSPECIFIED Qualifiers: Edema type: unspecified Qualified Code(s): R60.9 - Edema, unspecified (8) Hydrothorax Assessment/Plan: Code(s): J94.8 - OTHER SPECIFIED PLEURAL CONDITIONS (9) Thrombocytopenia Assessment/Plan: Code(s): D69.6 - THROMBOCYTOPENIA, UNSPECIFIED (10) Diabetes Assessment/Plan: Code(s): E11.9 - TYPE 2 DIABETES MELLITUS WITHOUT COMPLICATIONS Qualifiers: Diabetes mellitus type: type 2 PLAN: Monitor off ABX for now -> do not suspect PNA O2 as needed Would attempt few days of Lasix BID and then re-address whether he needs a pleural tap Aspiration precautions Rifaximin Will follow Thank you. Dr Abbott
--- NOTE | 2016-12-31 15:42 | CONSULT ---
Consultation: REQUESTING PROVIDER: CONSULT REQUEST: We have been asked to medically evaluate this patient for ( specify). HISTORY OF PRESENT ILLNESS: This is a 57 yo M with a PMH of end stage liver disease (hep C), previous hepatic encephalopathy, recurrent hepatic hydrothorax, anasarca, multiple thoracentesis, HTN, HLD, CAD, IDDM2, and lymphoma who presents s/p unwitnessed mechanical fall this morning at home. He was found by his neighbor on the floor after the patient called for help. He denies head trauma or loc. He ate breakfast but did not check AM blood sugar. He states he was at his health baseline prior to fall. He denies recent illness or sick contacts. He reports b/ l leg weakness R>L. he denies sob, chest pain, abd pain, n/v. REVIEW OF SYSTEMS: CONSTITUTIONAL: Absent: fever, chills, loss of appetite, weight change HEENT: Absent: rhinorrhea, nasal congestion, throat pain, throat swelling, difficulty swallowing CARDIOVASCULAR: Absent: chest pain, syncope, palpitations, irregular heart rate, lightheadedness RESPIRATORY: Absent: cough, shortness of breath GASTROINTESTINAL: Absent: abdominal pain, abdominal distension, nausea, vomiting GENITOURINARY: Absent: dysuria MUSCULOSKELETAL: Absent: myalgia, arthralgia SKIN: Absent: rash, itching, pallor HEMATOLOGIC/IMMUNOLOGIC: Absent: easy bleeding, easy bruising ENDOCRINE: Absent: unexplained weight gain, unexplained weight loss NEUROLOGIC: Absent: headache, focal weakness or paresthesias PSYCHIATRIC: Absent: anxiety, depression PHYSICAL EXAMINATION Vital Signs - 24 hr 12/31/16 12/31/16 12:32 13:10 Temperature 98.1 F Pulse Rate [ 70 70 Left Radial] Respiratory 22 Rate Blood Pressure 139/90 [Left] O2 Sat by Pulse 97 Oximetry (%) GENERAL: drowsy, alert, and fully oriented, in no acute distress. HEAD: Normal with no signs of trauma. EYES: Pupils equal, round and reactive to light, extraocular movements intact, sclera anicteric, conjunctiva clear. EARS, NOSE, THROAT: Moist mucous membranes. NECK: supple without JVD LUNGS: reduced breath sounds on R HEART: Regular rate and rhythm, normal S1 and S2 ABDOMEN: Soft, nontender, moderately distended, normoactive bowel sounds, fluid wave, ascites MUSCULOSKELETAL: No CVA tenderness. UPPER EXTREMITIES: 2+ pulses, warm, well-perfused. 1+ edema. LOWER EXTREMITIES: b/l venous stasis dermatitis, 1+ pulses, 2+ peripheral edema. NEUROLOGICAL: Cranial nerves II-XII grossly intact. Normal speech. PSYCHIATRIC: Cooperative. Good eye contact. Appropriate mood and affect. SKIN: Warm, dry Active Medications Generic Name Dose Route Start Last Admin Trade Name Freq PRN Reason Stop Dose Admin Furosemide 40 mg 12/31/16 14:00 12/31/16 14:55 Lasix Injection - IVPUSH 40 mg BID@0600,1400 JADEN Administration Gabapentin 100 mg 12/31/16 22:00 Neurontin - PO BID JADNE Insulin Aspart 1 vial 12/31/16 16:30 Novolog Vial Sliding Scale - SQ ACHS [facility] Protocol Insulin Detemir 20 units 01/01/17 08:00 Levemir Vial SQ DAILY@0800 [facility] Methadone HCl 10 mg 01/01/17 06:00 Dolophine - PO DAILY@0600 [facility] Pantoprazole Sodium 40 mg 01/01/17 10:00 Protonix - PO DAILY [facility] Rifaximin 550 mg 12/31/16 22:00 Xifaxan - PO BID [facility] ASSESSMENT/PLAN: Right hepatic hydrothorax -CXR slightly improved from previous study -satting 97% on RA -supplemental O2 PRN -recommend diuresis with Lasix 40 BID to avoid thoracentesis as recurrent manipulation of pleural space leads to adhesions and loculation -more definitive treatment would consist of tips/portal shunt End stage liver disease -due to hep c -recommend liver specialist outpatient, tips/shunt -elevated INR 1.42 -elevated ammonia -elevated alk phos 252 -abd US mild ascites, splenomegaly -anasarca Altered mental status -drowsy -possibly due to elevated ammonia 37 -CT head unremarkable -lactulose DM -levemir, novolog Dispo: We will continue to follow the patient. Thank you for this consultative opportunity. Problem List - Problems (1) Cirrhosis of liver Code(s): K74.60 - UNSPECIFIED CIRRHOSIS OF LIVER Qualifiers: Hepatic cirrhosis type: unspecified hepatic cirrhosis Ascites presence : with ascites Qualified Code(s): K74.60 - Unspecified cirrhosis of liver (2) Diabetes Code(s): E11.9 - TYPE 2 DIABETES MELLITUS WITHOUT COMPLICATIONS Qualifiers: Diabetes mellitus type: type 2 (3) Hepatic encephalopathy Code(s): K72.90 - HEPATIC FAILURE, UNSPECIFIED WITHOUT COMA (4) Hyperglycemia Code(s): R73.9 - HYPERGLYCEMIA, UNSPECIFIED (5) Portal hypertension Code(s): K76.6 - PORTAL HYPERTENSION (6) Type 2 diabetes mellitus with other diabetic neurological complication Code(s): E11.49 - TYPE 2 DIABETES W OTH DIABETIC NEUROLOGICAL COMPLICATION (7) Ascites Code(s): R18.8 - OTHER ASCITES Qualifiers: Ascites type: due to alcoholic cirrhosis Qualified Code(s): K70.31 - Alcoholic cirrhosis of liver with ascites (8) CKD (chronic kidney disease) Code(s): N18.9 - CHRONIC KIDNEY DISEASE, UNSPECIFIED Qualifiers: (9) Coagulopathy Code(s): D68.9 - COAGULATION DEFECT, UNSPECIFIED (10) DM Diabetes mellitus type 2 Code(s): E11.9 - TYPE 2 DIABETES MELLITUS WITHOUT COMPLICATIONS (11) Diabetes mellitus, insulin dependent (IDDM), uncontrolled Code(s): E10.65 - TYPE 1 DIABETES MELLITUS WITH HYPERGLYCEMIA Qualifiers: Diabetes mellitus complication status: without complication Qualified Code(s): E10.9 - Type 1 diabetes mellitus without complications (12) Edema Code(s): R60.9 - EDEMA, UNSPECIFIED Qualifiers: Edema type: unspecified Qualified Code(s): R60.9 - Edema, unspecified (13) Fall Code(s): W19.XXXA - UNSPECIFIED FALL, INITIAL ENCOUNTER Qualifiers: Encounter type: initial encounter Qualified Code(s): W19.XXXA - Unspecified fall, initial encounter (14) Hep C w/o coma, chronic Code(s): B18.2 - CHRONIC VIRAL HEPATITIS C (15) Hepatitis C carrier Code(s): Z22.52 - (16) Hepatitis C virus infection Code(s): B19.20 - UNSPECIFIED VIRAL HEPATITIS C WITHOUT HEPATIC COMA Qualifiers: Viral hepatitis chronicity: chronic Hepatic coma status: without hepatic coma Qualified Code(s): B18.2 - Chronic viral hepatitis C (17) Hepatorenal syndrome Code(s): K76.7 - HEPATORENAL SYNDROME (18) Hyperammonemia Code(s): E72.20 - DISORDER OF UREA CYCLE METABOLISM, UNSPECIFIED (19) Liver failure Code(s): K72.90 - HEPATIC FAILURE, UNSPECIFIED WITHOUT COMA Qualifiers: Liver failure chronicity: chronic Hepatic coma status: without hepatic coma Qualified Code(s): K72.10 - Chronic hepatic failure without coma (20) Pleural effusion Code(s): J90 - PLEURAL EFFUSION, NOT ELSEWHERE CLASSIFIED (21) Pleural effusion associated with hepatic disorder Code(s): K76.9 - LIVER DISEASE, UNSPECIFIED J91.8 - PLEURAL EFFUSION IN OTHER CONDITIONS CLASSIFIED ELSEWHERE (22) Pleural effusion on right Code(s): J90 - PLEURAL EFFUSION, NOT ELSEWHERE CLASSIFIED (23) Renal insufficiency Code(s): N28.9 - DISORDER OF KIDNEY AND URETER, UNSPECIFIED Visit type - Emergency Visit Emergency Visit: Yes ED Registration Date: 12/31/16 Care time: The patient presented to the Emergency Department on the above date and was hospitalized for further evaluation of their emergent condition. - New Patient This patient is new to me today: Yes Date on this admission: 12/31/16 - Critical Care Critical Care patient: No
[2016-12-31 15:55] VITALS: BMI 25.7
[2016-12-31] MEDS ORDERED: LACTULOSE 20 GM/30 ML UDC (FOR ORAL USE ONLY) PO PRN (16:13)
[2016-12-31 18:00] LABS: URINE APPEARANCE CLEAR; URINE BILIRUBIN NEGATIVE (NEGATIVE); URINE COLOR STRAW; URINE GLUCOSE (UA) 1+ (NEGATIVE); URINE KETONE NEGATIVE (NEGATIVE); URINE LEUK ESTERASE NEGATIVE (NEGATIVE); URINE NITRITE NEGATIVE (NEGATIVE); URINE PROTEIN NEGATIVE (NEGATIVE); URINE UROBILINOGEN NEGATIVE E.U./dl (0.2-1.0)
[2016-12-31] MEDS: INSULIN SLIDING SCALE (NOVOLOG) 1 VIAL SQ SCH ×2 (18:06→21:19)
[2016-12-31 18:16] LABS: URINE BLOOD 1+ (NEGATIVE)
[2016-12-31 19:04] LABS: URINE HYALINE CAST 5 /lpf; URINE RBC 1 /hpf (0-3); URINE WBC <1 /hpf (3-5)
[2016-12-31] MEDS ORDERED: METHADONE HCL 10 MG TABLET PO ONE (19:30)
[2016-12-31] MEDS: PIPERACILLIN/TAZOB 2.25 GM 50 ML IVPB SCH (20:53)
[2016-12-31] MEDS: GABAPENTIN 100 MG CAPSULE (FP) PO SCH (21:19)
[2016-12-31] MEDS: RIFAXIMIN 550 MG TABLET (UD) PO SCH (21:20)
--- NOTE | 2016-12-31 21:52 | CON.GI ---
Consult Consult Specialty:: GI Referred by:: Dr Thompson Reason for Consultation:: ascites - History of Present Illness Chief Complaint: fall at home History of Present Illness: 57 M, well-known to myself, with h/o ESLD, hep C, HE, CAD, DM2, low-grade B cell lymphoma, admitted after falling at home. He has no complaints at present. Routine CT scans were negative. - Past Medical History [employer]: Yes: Other (history of hepatic encephalopathy) Cardio/Vascular: Yes: CAD (reported prior MIs -> stents x4 at [facility] in 1998), HTN , Other (PPM palcement at time of MD in 1998, abnl EKG witth old inferior MD) Pulmonary: Yes: COPD, Other (PLEURAL EFFUSION WITH PREVIOUS thoracentesis and chest tube) Gastrointestinal: Yes: Ascites, Diverticulitis, Esophageal Varices (This patient does NOT have varices), GI Bleed (s/p multiple blood transfusions), Other (gastric varices ) Hepatobiliary: Yes: Cirrhosis (ESLD), Hepatitis C, Other (PORTAL HYPERTENSION) Renal/: Yes: Renal Inusuff (CKD (baseline 0.9-1.1)) Psych: Yes: Addictions (hx of polysubstance abuse & IVDA on maintenance Methadone), Anxiety Endocrine: Yes: Diabetes Mellitus (insulin-dependent) - Past Surgical History Past Surgical History: Yes: Permanent Pacemaker, Stent, Upper Endoscopy (with gastric varices/sclerotherapy) - Alcohol/Substance Use Hx Alcohol Use: No History of Substance Use: reports: Heroin (on methadone) - Smoking History Smoking history: Current every day smoker Have you smoked in the past 12 months: Yes Aproximately how many cigarettes per day: 5 - Social History Usual Living Arrangement: Other ( from . The youngest of his 3 children lives with him) ADL: Independent Occupation: not employed History of Recent Travel: No Home Medications - Allergies Allergies/Adverse Reactions: Allergies Allergy/AdvReac Type Severity Reaction Status Date / Time nalbuphine HCl [From Nubain] Allergy Verified 12/31/16 08:19 octreotide AdvReac Verified 12/31/16 08:19 - Home Medications Home Medications: Ambulatory Orders Albuterol 2.5/Ipratropium 0.5 [Duoneb -] 1 amp NEB Q6H PRN #120 amp 10/25/16 Furosemide [Lasix -] 40 mg PO DAILY #30 tablet 10/25/16 Pantoprazole Sodium [Protonix -] 40 mg PO DAILY #30 tablet.ec 10/25/16 Rifaximin [Xifaxan -] 550 mg PO BID #60 tablet 10/25/16 Methadone [Dolophine -] 10 mg PO DAILY 11/05/16 Insulin (Levemir) [Levemir Vial] 20 units SQ HS #0 11/08/16 Lactulose (Oral Use) [Cephulac -] 30 gm PO QID PRN #240 grams 11/08/16 Spironolactone [Aldactone -] 50 mg PO DAILY #30 tablet 11/08/16 Gabapentin [Neurontin -] 100 mg PO BID #60 capsule 12/19/16 Metoprolol Tartrate [Lopressor -] 25 mg PO BID #60 tablet 12/19/16 Rifaximin [Xifaxan -] 550 mg PO BID #20 tablet 12/31/16 Family Disease History - Family Disease History Family Disease History: Heart Disease: Father (OPEN HEART SX,), CA: Mother (BREAST CANCER,) Physical Exam-GI Vital Signs: Vital Signs Temperature 97.8 F 12/31/16 17:22 Pulse Rate 70 12/31/16 17:22 Respiratory Rate 20 12/31/16 21:00 Blood Pressure 144/92 12/31/16 17:22 O2 Sat by Pulse Oximetry (%) 97 12/31/16 21:00 Constitutional: Yes: Thin HENT: Yes: Normocephalic Neck: Yes: Supple Cardiovascular: Yes: Regular Rate and Rhythm Respiratory: Yes: Diminished, Dullness (R lungfield), SOB, Tachypnea Gastrointestinal Inspection: Yes: Ascites ...Auscultate: Yes: Normoactive Bowel Sounds ...Palpate: Yes: Soft. No: Tenderness ...Percussion: Yes: Fluid Wave ...Rectal Exam: Yes: WNL Neurological: Yes: Alert Labs: INR, PTT INR 1.42 (0.82-1.09) H 12/31/16 09:15 CBC, BMP 12/31/16 09:15 12/31/16 09:15 Imaging - Results Cat Scan: Report Reviewed (Large R pleural effusion, cirrhosis, splenomegaly.) Assessment/Plan Patient with above history admitted post-fall at home, now with marked ascites with associated respiratory embarrassment. Needs paracentesis. Coags need to be corrected prior to procedure. Will give platelets and FFP tonight Paracentesis ordered for tomorrow
[2016-12-31] MEDS ORDERED: GABAPENTIN 100 MG CAPSULE (FP) PO SCH (22:00)
[2017-01-01] MEDS: PIPERACILLIN/TAZOB 2.25 GM 50 ML IVPB SCH (04:09)
[2017-01-01] MEDS: FUROSEMIDE 40 MG/4 ML INJECTABLE VIAL IVPUSH SCH ×2 (05:13→17:51)
[2017-01-01] MEDS ORDERED: METHADONE HCL 5 MG TABLET PO SCH (06:00)
[2017-01-01 08:08] LABS: BASOPHIL 0.6 % (0-2.0); EOSINOPHIL 4.2 % (0-4.5); MCHC 34.4 g/dl (32.0-35.9); MEAN CELL VOLUME 98.8 fl (80-96); MEAN PLT VOLUME 9.7 fl (7.5-11.1); PLATELET COUNT 40 K/MM3 (134-434); RDW 16.8 % (11.9-15.9); WHITE BLOOD COUNT 4.1 K/mm3 (4.0-10.0)
[2017-01-01 08:25] LABS: INR 1.43 (0.82-1.09); PROTHROMBIN TIME (PATIENT) 15.8 SEC (9.98-11.88)
[2017-01-01 08:28] LABS: ACTIVATED PTT 32.4 SECONDS (26.9-34.4)
[2017-01-01] MEDS: INSULIN DETEMIR 100 UNITS/ML MDV SQ SCH (08:35)
[2017-01-01] MEDS ORDERED: INSULIN DETEMIR 100 UNITS/ML MDV SQ ONE (08:38)
[2017-01-01 08:45] LABS: ALBUMIN 2.1 g/dl (3.4-5.0)
[2017-01-01 08:54] LABS: BILIRUBIN,TOTAL 1.7 mg/dL (0.2-1.0); CALCIUM 7.9 mg/dL (8.5-10.1); CREATININE 1.3 mg/dL (0.7-1.3); MAGNESIUM 1.8 mg/dL (1.8-2.4); PHOSPHOROUS 2.8 mg/dL (2.5-4.9); TOT PROT 7.6 g/dl (6.4-8.2)
--- NOTE | 2017-01-01 09:38 | PN ---
Progress Note, Physician - Current Medication List Current Medications: Active Medications Furosemide (Lasix Injection -) 40 mg IVPUSH BID@0600,1400 [facility] Last Admin: 01/01/17 05:13 Dose: 40 mg Gabapentin (Neurontin -) 100 mg PO BID [facility] Last Admin: 12/31/16 21:19 Dose: 100 mg Piperacillin Sod/Tazobactam Sod (Zosyn 2.25gm Ivpb (Pre-Docked)) 50 mls @ 100 mls/hr IVPB Q8H-IV [facility] PRN Reason: Protocol Insulin Aspart (Novolog Vial Sliding Scale -) 1 vial SQ ACHS [facility] PRN Reason: Protocol Last Admin: 12/31/16 21:19 Dose: 10 units Insulin Detemir (Levemir Vial) 20 units SQ DAILY@0800 [facility] Last Admin: 01/01/17 08:35 Dose: 20 units Lactulose (Cephulac (Oral Use)) 20 gm PO TID PRN PRN Reason: CONSTIPATION Methadone HCl (Dolophine -) 10 mg PO DAILY@0600 [facility] Pantoprazole Sodium (Protonix -) 40 mg PO DAILY [facility] Rifaximin (Xifaxan -) 550 mg PO BID [facility] Last Admin: 12/31/16 21:20 Dose: 550 mg - Objective Vital Signs: Vital Signs Temperature 97.6 F 01/01/17 07:53 Pulse Rate 72 01/01/17 07:53 Respiratory Rate 22 01/01/17 07:53 Blood Pressure 148/82 01/01/17 07:53 O2 Sat by Pulse Oximetry (%) 97 12/31/16 21:00 Labs: CBC, BMP 01/01/17 06:00 01/01/17 06:00 INR, PTT INR 1.43 (0.82-1.09) H 01/01/17 06:00 Assessment/Plan - Problems (1) Fall Assessment/Plan: PT may need rehab Code(s): W19.XXXA - UNSPECIFIED FALL, INITIAL ENCOUNTER Qualifiers: Encounter type: initial encounter Qualified Code(s): W19.XXXA - Unspecified fall, initial encounter (2) Tachypnea Assessment/Plan: sec to fluidi n lung vs infiltrate rocephin ct chest Code(s): R06.82 - TACHYPNEA, NOT ELSEWHERE CLASSIFIED (3) Cirrhosis of liver Assessment/Plan: GIeval lactulose rifaximin Code(s): K74.60 - UNSPECIFIED CIRRHOSIS OF LIVER Qualifiers: Hepatic cirrhosis type: unspecified hepatic cirrhosis Ascites presence : with ascites Qualified Code(s): K74.60 - Unspecified cirrhosis of liver (4) Hepatic encephalopathy Assessment/Plan: laculose trend ammonia Code(s): K72.90 - HEPATIC FAILURE, UNSPECIFIED WITHOUT COMA (5) Sedative dependence Assessment/Plan: methaodone 15mg Code(s): F13.20 - SEDATIVE, HYPNOTIC OR ANXIOLYTIC DEPENDENCE, UNCOMPLICATED (6) Ascites Assessment/Plan: ultrasound liver possible paracentsis heme eval will need FFP prior to procedure and platelet count is low will need platleltet and angelo idcations Code(s): R18.8 - OTHER ASCITES Qualifiers: Ascites type: due to alcoholic cirrhosis Qualified Code(s): K70.31 - Alcoholic cirrhosis of liver with ascites (7) Edema Assessment/Plan: lasix bid Code(s): R60.9 - EDEMA, UNSPECIFIED Qualifiers: Edema type: unspecified Qualified Code(s): R60.9 - Edema, unspecified (8) Hydrothorax Assessment/Plan: ct chest to elvaluate fluid vs inliftrate pulm lasix Code(s): J94.8 - OTHER SPECIFIED PLEURAL CONDITIONS (9) Thrombocytopenia Assessment/Plan: heme Code(s): D69.6 - THROMBOCYTOPENIA, UNSPECIFIED (10) Diabetes Assessment/Plan: BGM sliding scalre hga1c levemir Code(s): E11.9 - TYPE 2 DIABETES MELLITUS WITHOUT COMPLICATIONS Qualifiers: Diabetes mellitus type: type 2
[2017-01-01] MEDS ORDERED: PT OWN MED DRAWER 7, Y5N ONE ×2 (10:08→18:27)
[2017-01-01] MEDS: PANTOPRAZOLE 40 MG TABLET (FP) PO SCH (10:11)
[2017-01-01] MEDS: GABAPENTIN 100 MG CAPSULE (FP) PO SCH ×2 (10:11→21:33)
[2017-01-01] MEDS: RIFAXIMIN 550 MG TABLET (UD) PO SCH ×2 (10:12→21:33)
[2017-01-01] MEDS ORDERED: DEXAMETHASONE SOD PHOSPHATE 20 MG/5 ML VIAL IVPB ONE (10:25)
[2017-01-01] MEDS: INSULIN SLIDING SCALE (NOVOLOG) 1 VIAL SQ SCH ×4 (11:19→21:36)
[2017-01-01] MEDS ORDERED: DEXAMETHASONE SOD PHOSPHATE 10 MG/1 ML VIAL IVPB ONE (11:25)
--- NOTE | 2017-01-01 13:38 | CON.PULM ---
Consult Consult Specialty:: PULMONARY Referred by:: AMARJIT Reason for Consultation:: SOB - History of Present Illness Chief Complaint: SOB History of Present Illness: The patient is a 57 year old male with a past medical hx of HTN, hyperlipidemia , coronary artery disease, type 2 diabetes (on insulin), end stage liver disease (secondary to hepatitis C), hx of hepatic encephalopathy, and lymphoma who presents to the ED via EMS for evaluation of an unwitnessed fall. Per EMS, the patient was found by his neighbor on the floor of his home and called EMS. The patient notes he was in his house this morning when he lost his balance and fell onto the floor. He states he then called his neighbor. He denies hitting his head and loss of consciousness. He states he ate breakfast this morning, which consisted of eggs, corn, orange juice, and iced tea. The patient reports he usually checks his blood sugar levels every day, but did not check his levels this morning. The patient notes he was in his usual state of health up until this morning and denies any recent illnesses. The patient denies fever, chills, cough, dysuria, frequency The patient denies chest pain, SOB, abdominal pain, nausea, vomiting The patient denies headache, arm pain, leg pain, back pain, neck pain - History Source History Provided By: Patient, Medical Record Limitations to Obtaining History: Clinical Condition - Past Medical History FOLLOW UP SPECIALIST: Yes: Other (history of hepatic encephalopathy) Cardio/Vascular: Yes: CAD (reported prior MIs -> stents x4 at [facility] in 1998), HTN , Other (PPM palcement at time of OR in 1998, abnl EKG witth old inferior OR) Pulmonary: Yes: COPD, Other (PLEURAL EFFUSION WITH PREVIOUS thoracentesis and chest tube) Gastrointestinal: Yes: Ascites, Diverticulitis, Esophageal Varices (This patient does NOT have varices), GI Bleed (s/p multiple blood transfusions), Other (gastric varices ) Hepatobiliary: Yes: Cirrhosis (ESLD), Hepatitis C, Other (PORTAL HYPERTENSION) Renal/: Yes: Renal Inusuff (CKD (baseline 0.9-1.1)) Psych: Yes: Addictions (hx of polysubstance abuse & IVDA on maintenance Methadone), Anxiety Endocrine: Yes: Diabetes Mellitus (insulin-dependent) - Past Surgical History Past Surgical History: Yes: Permanent Pacemaker, Stent, Upper Endoscopy (with gastric varices/sclerotherapy) - Alcohol/Substance Use Hx Alcohol Use: No History of Substance Use: reports: Heroin (on methadone) - Smoking History Smoking history: Current every day smoker Have you smoked in the past 12 months: Yes Aproximately how many cigarettes per day: 5 - Social History Usual Living Arrangement: Other ( from . The youngest of his 3 children lives with him) ADL: Independent Occupation: not employed History of Recent Travel: No Home Medications - Allergies Allergies/Adverse Reactions: Allergies Allergy/AdvReac Type Severity Reaction Status Date / Time nalbuphine HCl [From Nubain] Allergy Verified 12/31/16 08:19 octreotide AdvReac Verified 12/31/16 08:19 - Home Medications Home Medications: Ambulatory Orders Albuterol 2.5/Ipratropium 0.5 [Duoneb -] 1 amp NEB Q6H PRN #120 amp 10/25/16 Furosemide [Lasix -] 40 mg PO DAILY #30 tablet 10/25/16 Pantoprazole Sodium [Protonix -] 40 mg PO DAILY #30 tablet.ec 10/25/16 Rifaximin [Xifaxan -] 550 mg PO BID #60 tablet 10/25/16 Methadone [Dolophine -] 10 mg PO DAILY 11/05/16 Insulin (Levemir) [Levemir Vial] 20 units SQ HS #0 11/08/16 Lactulose (Oral Use) [Cephulac -] 30 gm PO QID PRN #240 grams 11/08/16 Spironolactone [Aldactone -] 50 mg PO DAILY #30 tablet 11/08/16 Gabapentin [Neurontin -] 100 mg PO BID #60 capsule 12/19/16 Metoprolol Tartrate [Lopressor -] 25 mg PO BID #60 tablet 12/19/16 Rifaximin [Xifaxan -] 550 mg PO BID #20 tablet 12/31/16 Family Disease History - Family Disease History Family Disease History: Heart Disease: Father (OPEN HEART SX,), CA: Mother (BREAST CANCER,) Review of Systems - Review of Systems Cardiovascular: denies: Chest Pain Respiratory: reports: SOB Physical Exam Vital Sings: Vital Signs Temperature 97.3 F L 01/01/17 08:20 Pulse Rate 71 01/01/17 08:20 Respiratory Rate 22 03/10/17 08:20 Blood Pressure 151/96 01/01/17 08:20 O2 Sat by Pulse Oximetry (%) 100 01/01/17 09:00 Constitutional: Yes: Anxious, Pallor Eyes: Yes: Conjunctiva Clear HENT: Yes: Atraumatic Neck: Yes: Supple Cardiovascular: Yes: S1, S2 Respiratory: Yes: Diminished (BREATH SOUNDS OVER RIGHT LUNG FIELD) Gastrointestinal: Yes: Ascites Edema: LLE: 1+, RLE: 1+ Neurological: Yes: Alert Labs: CBC, BMP 01/01/17 06:00 01/01/17 06:00 REST REVIEWED Imaging - Results Chest X-ray: Image Reviewed Cat Scan: Image Reviewed EKG: Report Reviewed Problem List - Problems (1) Cirrhosis of liver Code(s): K74.60 - UNSPECIFIED CIRRHOSIS OF LIVER Qualifiers: Hepatic cirrhosis type: unspecified hepatic cirrhosis Ascites presence : with ascites Qualified Code(s): K74.60 - Unspecified cirrhosis of liver (2) Portal hypertension Code(s): K76.6 - PORTAL HYPERTENSION (3) Radiculopathy Code(s): M54.10 - RADICULOPATHY, SITE UNSPECIFIED (4) Pleural effusion due to another disorder Code(s): J90 - PLEURAL EFFUSION, NOT ELSEWHERE CLASSIFIED Assessment/Plan MULTIPLE THORACENTESIS FOR THIS REFRACTORY HEPATIC HYDROTHORAX WOULD CONSIDER ALTERNATE METHODS OF TREATMENT SUCH TIPS (TRANSJUGULAR INTRAHEPATIC PORTOSYSTEMIC SHUNT) OR PLEURODESIS WILL FOLLOW Minh GARZA MD
[2017-01-01] MEDS ORDERED: DEXAMETHASONE SOD PHOSPHATE 4 MG/1 ML VIAL IVPB SCH (17:34)
[2017-01-01] MEDS: METHADONE HCL 5 MG TABLET PO SCH (17:49)
--- NOTE | 2017-01-01 18:02 | CONSULT ---
Consult - text type - Consultation Consultation Note: NEUROLOGY CONSULTATION is greatly appreciated: This 56 yo man with h/o HTN, Chol, ASHD, s/p MS, S/P stents has long h/o IVDA complicated by Hep C, cirrhosis. Recurrent ascites and episodes of hepatic encephalopathy. Last admission was for compressive Right sciatic mononeuropathy after falling asleep in his chair, intoxicated. Notes his footdrop never recovered completely. Now admitted after a fall without prodromata, head trauma or LOC. ALEXANDRE: Thin. Ascitic abd, Atrophic skin changes both legs. NEURO: Mild OMS. sl dysarthric speech. CN II-XII: few beats nystagmus on B/L gaze. Motor: No drift - asterixis. Right ankle DF, inv, ever 4-/5. R plantarflexion 4/5. Normal strength left leg. Brisk reflexes except absent R AJ. Coord: No FTN dystaxia. Sensory: decreased vibration and pinprick R foot diffusely. IMP: Mild-mod B/L cerebral dysfunction (encephalopathy). Right sciatic Mononeuropathy (improving). Probably an uncomplicated fall. Doubt syncope or seizure. SUGGEST: Check ammonia, B12. PT for gait with walker. Thank you very much, Eddie Pereira MD
[2017-01-01 18:52] LABS: GLUCOSE,PLEURAL FLUID 357.622
[2017-01-01] MEDS ORDERED: HYDROmorphone HCL CARPU-JECT 1 MG/1 ML DISP.SYRIN IVPB PRN (19:39)
[2017-01-01] MEDS: HYDROmorphone HCL CARPU-JECT 1 MG/1 ML DISP.SYRIN IVPB PRN (20:03)
[2017-01-01 23:03] LABS: PLEURAL FLUID APPEARANCE CLOUDY; PLEURAL FLUID COLOR RED; PLEURAL FLUID SOURCE PLEURAL FLUID
[2017-01-01 23:04] LABS: PLEURAL FLUID MACROPHAGES 44 %; PLEURAL FLUID NEUTROPHIL 1 %
[2017-01-01 23:05] LABS: PLEURAL FLUID LYMPHOCYTES 52 %
--- NOTE | 2017-01-02 01:08 | CONSULT ---
Consult - text type - Consultation Consultation Note: Patient seen and examined 12/31 and 01/02/16 57 M, well-known to our team, with h/o ESLD, hep C, HE, CAD, DM2, low-grade B cell lymphoma, admitted after falling at home. He comes in with also worsening dyspnea, shortness of breath. no cough. 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 (history of hepatic encephalopathy) Cardio/Vascular: Yes: CAD (reported prior MIs -> stents x4 at [facility] in 1998), HTN , Other (PPM palcement at time of OR in 1998, abnl EKG witth old inferior OR) Pulmonary: Yes: COPD, Other (PLEURAL EFFUSION WITH PREVIOUS thoracentesis and chest tube) Gastrointestinal: Yes: Ascites, Diverticulitis, Esophageal Varices (This patient does NOT have varices), GI Bleed (s/p multiple blood transfusions), Other (gastric varices ) Hepatobiliary: Yes: Cirrhosis (ESLD), Hepatitis C, Other (PORTAL HYPERTENSION) Renal/: Yes: Renal Inusuff (CKD (baseline 0.9-1.1)) Psych: Yes: Addictions (hx of polysubstance abuse & IVDA on maintenance Methadone), Anxiety Endocrine: Yes: Diabetes Mellitus (insulin-dependent) - Past Surgical History Past Surgical History: Yes: Permanent Pacemaker, Stent, Upper Endoscopy (with gastric varices/sclerotherapy) - Alcohol/Substance Use Hx Alcohol Use: No History of Substance Use: reports: Heroin (on methadone) - Smoking History Smoking history: Current every day smoker - Social History Usual Living Arrangement: Other ( from . The youngest of his 3 children lives with him) ADL: Independent Home Medications - Allergies Allergies/Adverse Reactions: Allergies Allergy/AdvReac Type Severity Reaction Status Date / Time nalbuphine HCl [From Nubain] Allergy Verified 12/31/16 08:19 octreotide AdvReac Verified 12/31/16 08:19 - Home Medications Home Medications: Ambulatory Orders Albuterol 2.5/Ipratropium 0.5 [Duoneb -] 1 amp NEB Q6H PRN #120 amp 10/25/16 Furosemide [Lasix -] 40 mg PO DAILY #30 tablet 10/25/16 Pantoprazole Sodium [Protonix -] 40 mg PO DAILY #30 tablet.ec 10/25/16 Rifaximin [Xifaxan -] 550 mg PO BID #60 tablet 10/25/16 Methadone [Dolophine -] 10 mg PO DAILY 11/05/16 Insulin (Levemir) [Levemir Vial] 20 units SQ HS #0 11/08/16 Lactulose (Oral Use) [Cephulac -] 30 gm PO QID PRN #240 grams 11/08/16 Spironolactone [Aldactone -] 50 mg PO DAILY #30 tablet 11/08/16 Gabapentin [Neurontin -] 100 mg PO BID #60 capsule 12/19/16 Metoprolol Tartrate [Lopressor -] 25 mg PO BID #60 tablet 12/19/16 Rifaximin [Xifaxan -] 550 mg PO BID #20 tablet 12/31/16 Family Disease History - Family Disease History Family Disease History: Heart Disease: Father (OPEN HEART SX,), CA: Mother (BREAST CANCER,) Physical Exam-GI Vital Signs: Vital Signs Temperature 97.8 F 12/31/16 17:22 Pulse Rate 70 12/31/16 17:22 Respiratory Rate 20 12/31/16 21:00 Blood Pressure 144/92 12/31/16 17:22 O2 Sat by Pulse Oximetry (%) 97 12/31/16 21:00 Constitutional: Yes: Thin HENT: Yes: Normocephalic Neck: Yes: Supple Cardiovascular: Yes: Regular Rate and Rhythm Respiratory: Yes: Diminished, Dullness (R lungfield), SOB, Tachypnea Gastrointestinal Inspection: Yes: Ascites ...Auscultate: Yes: Normoactive Bowel Sounds ...Palpate: Yes: Soft. No: Tenderness Neurological: Yes: Alert Labs: INR, PTT INR 1.42 (0.82-1.09) H 12/31/16 09:15 CBC, BMP 12/31/16 09:15 12/31/16 09:15 Imaging - Results Cat Scan: Report Reviewed (Large R pleural effusion, cirrhosis, splenomegaly.) Assessment/Plan 56 y/o patient with advanced cirrhosis, portal HTN, ascites, rt. hydrothorax, comes in s/p fall and with resp. distreess discussed in great detail with him ---he was competent to make decisions and has decided to be DNR/DNI this was communicated with his neighbor Celestine /daughter Nahed--whom he wanted me to talk to given recurrent pleural effusion, overall declining clinical status, allergic reactions and refractoriness to plasma/platelets, after discussing with GI/ primary/IR teams patient had pleurex catheter placed. Platelets were transfused with decadron/benadryl premeds . total 3 units monodonor platelets PAtient is refractory to platelet transfusions monitor CBC dilaudid for pain control prn --0.5mg Q 6h prn DVT noted Lt. SFV--unable to anticoagulate due to advanced liver disease/ coagulopathy/thrombocytopenia---refractory to platelets Will get vascular consult---to consider ivc filter, if feaasible patient and family understand his grave prognosis
[2017-01-02] MEDS: HYDROmorphone HCL CARPU-JECT 1 MG/1 ML DISP.SYRIN IVPB PRN ×3 (03:24→23:25)
[2017-01-02] MEDS: FUROSEMIDE 40 MG/4 ML INJECTABLE VIAL IVPUSH SCH ×2 (06:30→13:19)
[2017-01-02] MEDS: METHADONE HCL 5 MG TABLET PO SCH ×2 (06:30→21:05)
[2017-01-02] MEDS: INSULIN SLIDING SCALE (NOVOLOG) 1 VIAL SQ SCH ×3 (06:31→18:52)
[2017-01-02] MEDS ORDERED: INSULIN (NOVOLOG) ASPART 100 UNITS/ML 10ML VIAL SQ ONE ×3 (07:45→18:30)
[2017-01-02] MEDS: INSULIN DETEMIR 100 UNITS/ML MDV SQ SCH ×2 (09:00→21:49)
[2017-01-02] MEDS ORDERED: DEXAMETHASONE SOD PHOSPHATE 4 MG/1 ML VIAL IVPB ONE ×2 (09:02→12:30)
[2017-01-02 09:38] LABS: BASOPHIL 0.2 % (0-2.0); MCH 33.9 pg (25.7-33.7); MCHC 33.8 g/dl (32.0-35.9); MEAN CELL VOLUME 100.5 fl (80-96); MEAN PLT VOLUME 9.6 fl (7.5-11.1); NEUTROPHILS 88.8 % (42.8-82.8); WHITE BLOOD COUNT 5.2 K/mm3 (4.0-10.0)
[2017-01-02 09:48] LABS: PLATELET COUNT 35 K/MM3 (134-434)
[2017-01-02 09:49] LABS: ALBUMIN 2.3 g/dl (3.4-5.0); CALCIUM 8.4 mg/dL (8.5-10.1); CREATININE 1.6 mg/dL (0.7-1.3); TOT PROT 8.2 g/dl (6.4-8.2)
[2017-01-02 09:54] LABS: INR 1.46 (0.82-1.09); PROTHROMBIN TIME (PATIENT) 16.2 SEC (9.98-11.88)
[2017-01-02 09:56] LABS: ACTIVATED PTT 29.6 SECONDS (26.9-34.4)
[2017-01-02] MEDS: GABAPENTIN 100 MG CAPSULE (FP) PO SCH ×2 (10:20→21:05)
[2017-01-02] MEDS: PANTOPRAZOLE 40 MG TABLET (FP) PO SCH (10:21)
[2017-01-02] MEDS: RIFAXIMIN 550 MG TABLET (UD) PO SCH ×2 (10:21→21:05)
--- NOTE | 2017-01-02 10:38 | CONSULT ---
Consult Consult Specialty:: Vascular Surgery - History of Present Illness History of Present Illness: 56 year old male with end stage Hep-C cirrhosis with encephalopathy, thrombocytopenia and coagulopathy who has been found to have an acute DVT of the left femoral vein on Duplex ultrasound. He has no prior history of DVT or PE. 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 (history of hepatic encephalopathy) Cardio/Vascular: Yes: CAD (reported prior MIs -> stents x4 at [facility] in 1998), HTN , Other (PPM palcement at time of CT in 1998, abnl EKG witth old inferior CT) Pulmonary: Yes: COPD, Other (PLEURAL EFFUSION WITH PREVIOUS thoracentesis and chest tube) Gastrointestinal: Yes: Ascites, Diverticulitis, Esophageal Varices (This patient does NOT have varices), GI Bleed (s/p multiple blood transfusions), Other (gastric varices ) Hepatobiliary: Yes: Cirrhosis (ESLD), Hepatitis C, Other (PORTAL HYPERTENSION) Renal/: Yes: Renal Inusuff (CKD (baseline 0.9-1.1)) Psych: Yes: Addictions (hx of polysubstance abuse & IVDA on maintenance Methadone), Anxiety Endocrine: Yes: Diabetes Mellitus (insulin-dependent) - Past Surgical History Past Surgical History: Yes: Permanent Pacemaker, Stent, Upper Endoscopy (with gastric varices/sclerotherapy) - Alcohol/Substance Use Hx Alcohol Use: No History of Substance Use: reports: Heroin (on methadone) - Smoking History Smoking history: Current every day smoker Have you smoked in the past 12 months: Yes Aproximately how many cigarettes per day: 5 - Social History Usual Living Arrangement: Other ( from . The youngest of his 3 children lives with him) ADL: Independent Occupation: not employed History of Recent Travel: No Home Medications - Allergies Allergies/Adverse Reactions: Allergies Allergy/AdvReac Type Severity Reaction Status Date / Time nalbuphine HCl [From Nubain] Allergy Verified 12/31/16 08:19 octreotide AdvReac Verified 12/31/16 08:19 - Home Medications Home Medications: Ambulatory Orders Albuterol 2.5/Ipratropium 0.5 [Duoneb -] 1 amp NEB Q6H PRN #120 amp 10/25/16 Furosemide [Lasix -] 40 mg PO DAILY #30 tablet 10/25/16 Pantoprazole Sodium [Protonix -] 40 mg PO DAILY #30 tablet.ec 10/25/16 Rifaximin [Xifaxan -] 550 mg PO BID #60 tablet 10/25/16 Methadone [Dolophine -] 10 mg PO DAILY 11/05/16 Insulin (Levemir) [Levemir Vial] 20 units SQ HS #0 11/08/16 Lactulose (Oral Use) [Cephulac -] 30 gm PO QID PRN #240 grams 11/08/16 Spironolactone [Aldactone -] 50 mg PO DAILY #30 tablet 11/08/16 Gabapentin [Neurontin -] 100 mg PO BID #60 capsule 12/19/16 Metoprolol Tartrate [Lopressor -] 25 mg PO BID #60 tablet 12/19/16 Rifaximin [Xifaxan -] 550 mg PO BID #20 tablet 12/31/16 Family Disease History - Family Disease History Family Disease History: Heart Disease: Father (OPEN HEART SX,), CA: Mother (BREAST CANCER,) Physical Exam Vital Signs: Vital Signs Temperature 96.4 F L 01/02/17 06:00 Pulse Rate 67 01/02/17 06:00 Respiratory Rate 20 01/02/17 06:00 Blood Pressure 151/85 01/02/17 06:00 O2 Sat by Pulse Oximetry (%) 100 01/01/17 21:00 Labs: CBC, BMP 01/02/17 09:00 01/02/17 09:00 Problem List - Problems (1) DVT (deep venous thrombosis) Assessment/Plan: Acute DVT in patient with thrombocytopenia and coagulopathy who is DNR due to end stage liver disease. I would not recommend any invasive procedures due to high risk of bleeding complication. If he shows signs of progression of the DVT and increased risk of pulmonary embolism reevaluation would be appropriate. I would get repeat Duplex in 3-4 days to look for clot extension. Code(s): I82.409 - ACUTE EMBOLISM AND THOMBOS UNSP DEEP VN UNSP LOWER EXTREMITY Qualifiers: DVT location: lower extremity Affected thrombotic vein of extremity: femoral Laterality: left Chronicity: acute Qualified Code(s): I82.412 - Acute embolism and thrombosis of left femoral vein
--- NOTE | 2017-01-02 10:56 | PN ---
Progress Note, Physician Chief Complaint: REQUESTING NARCOTIC PAIN Rx - Current Medication List Current Medications: Active Medications Furosemide (Lasix Injection -) 40 mg IVPUSH BID@0600,1400 [facility] Last Admin: 01/02/17 06:30 Dose: 40 mg Gabapentin (Neurontin -) 100 mg PO BID [facility] Last Admin: 01/02/17 10:20 Dose: 100 mg Hydromorphone HCl (Dilaudid Injection -) 0.5 mg IVPB Q6H PRN PRN Reason: PAIN Last Admin: 01/02/17 03:24 Dose: 0.5 mg Piperacillin Sod/Tazobactam Sod (Zosyn 2.25gm Ivpb (Pre-Docked)) 50 mls @ 100 mls/hr IVPB Q8H-IV JADEN PRN Reason: Protocol Insulin Aspart (Novolog Vial Sliding Scale -) 1 vial SQ ACHS [facility] PRN Reason: Protocol Last Admin: 01/02/17 06:31 Dose: 10 units Insulin Detemir (Levemir Vial) 20 units SQ DAILY@0800 [facility] Last Admin: 01/02/17 09:00 Dose: 20 units Lactulose (Cephulac (Oral Use)) 20 gm PO TID PRN PRN Reason: CONSTIPATION Methadone HCl (Dolophine -) 10 mg PO DAILY@0600 [facility] Last Admin: 01/02/17 06:30 Dose: 10 mg Pantoprazole Sodium (Protonix -) 40 mg PO DAILY [facility] Last Admin: 01/02/17 10:21 Dose: 40 mg Rifaximin (Xifaxan -) 550 mg PO BID [facility] Last Admin: 01/02/17 10:21 Dose: 550 mg - Objective Vital Signs: Vital Signs Temperature 96.4 F L 01/02/17 06:00 Pulse Rate 67 01/02/17 06:00 Respiratory Rate 20 01/02/17 06:00 Blood Pressure 151/85 01/02/17 06:00 O2 Sat by Pulse Oximetry (%) 100 01/01/17 21:00 Cardiovascular: Yes: WNL Respiratory: Yes: WNL Gastrointestinal: Yes: Distention Edema: Yes Labs: CBC, BMP 01/02/17 09:00 01/02/17 09:00 INR, PTT INR 1.46 (0.82-1.09) H 01/02/17 09:00 Problem List - Problems (1) DVT (deep venous thrombosis) Code(s): I82.409 - ACUTE EMBOLISM AND THOMBOS UNSP DEEP VN UNSP LOWER EXTREMITY Qualifiers: DVT location: lower extremity Affected thrombotic vein of extremity: femoral Laterality: left Chronicity: acute Qualified Code(s): I82.412 - Acute embolism and thrombosis of left femoral vein (2) Cirrhosis of liver Code(s): K74.60 - UNSPECIFIED CIRRHOSIS OF LIVER Qualifiers: Hepatic cirrhosis type: unspecified hepatic cirrhosis Ascites presence : with ascites Qualified Code(s): K74.60 - Unspecified cirrhosis of liver (3) Diabetes Code(s): E11.9 - TYPE 2 DIABETES MELLITUS WITHOUT COMPLICATIONS Qualifiers: Diabetes mellitus type: type 2 (4) Hepatic encephalopathy Code(s): K72.90 - HEPATIC FAILURE, UNSPECIFIED WITHOUT COMA (5) Type 2 diabetes mellitus with other diabetic neurological complication Code(s): E11.49 - TYPE 2 DIABETES W OTH DIABETIC NEUROLOGICAL COMPLICATION (6) Anxiety Code(s): F41.9 - ANXIETY DISORDER, UNSPECIFIED (7) CKD (chronic kidney disease) Code(s): N18.9 - CHRONIC KIDNEY DISEASE, UNSPECIFIED Qualifiers: (8) Edema Code(s): R60.9 - EDEMA, UNSPECIFIED Qualifiers: Edema type: unspecified Qualified Code(s): R60.9 - Edema, unspecified (9) Esophageal varices Code(s): I85.00 - ESOPHAGEAL VARICES WITHOUT BLEEDING Qualifiers: Esophageal varices type: secondary Esophageal varices bleeding: without bleeding Qualified Code(s): I85.10 - Secondary esophageal varices without bleeding (10) Heroin abuse Code(s): F11.10 - OPIOID ABUSE, UNCOMPLICATED Assessment/Plan (1) Fall Assessment/Plan: PT may need rehab Code(s): W19.XXXA - UNSPECIFIED FALL, INITIAL ENCOUNTER Qualifiers: Encounter type: initial encounter Qualified Code(s): W19.XXXA - Unspecified fall, initial encounter (2) Tachypnea Assessment/Plan: sec to fluidi n lung vs infiltrate iv abx ct chest pulm on case Code(s): R06.82 - TACHYPNEA, NOT ELSEWHERE CLASSIFIED (3) Cirrhosis of liver Assessment/Plan: GI eval lactulose rifaximin Code(s): K74.60 - UNSPECIFIED CIRRHOSIS OF LIVER Qualifiers: Hepatic cirrhosis type: unspecified hepatic cirrhosis Ascites presence : with ascites Qualified Code(s): K74.60 - Unspecified cirrhosis of liver (4) Hepatic encephalopathy Assessment/Plan: laculose trend ammonia does not seem confused today (at baseline) Code(s): K72.90 - HEPATIC FAILURE, UNSPECIFIED WITHOUT COMA (5) Sedative dependence Assessment/Plan: methaodone 15mg -> 10bid Code(s): F13.20 - SEDATIVE, HYPNOTIC OR ANXIOLYTIC DEPENDENCE, UNCOMPLICATED (6) Ascites Assessment/Plan: ultrasound liver possible paracentsis heme eval will need FFP prior to procedure and platelet count is low will need platleltet and angelo idcations Code(s): R18.8 - OTHER ASCITES Qualifiers: Ascites type: due to alcoholic cirrhosis Qualified Code(s): K70.31 - Alcoholic cirrhosis of liver with ascites (7) Edema Assessment/Plan: lasix bid Code(s): R60.9 - EDEMA, UNSPECIFIED Qualifiers: Edema type: unspecified Qualified Code(s): R60.9 - Edema, unspecified (8) Hydrothorax Assessment/Plan: ct chest to elvaluate fluid vs inliftrate pulm lasix Code(s): J94.8 - OTHER SPECIFIED PLEURAL CONDITIONS (9) Thrombocytopenia Assessment/Plan: heme Code(s): D69.6 - THROMBOCYTOPENIA, UNSPECIFIED (10) Diabetes Assessment/Plan: BGM sliding scalre hga1c levemir endo consulted Code(s): E11.9 - TYPE 2 DIABETES MELLITUS WITHOUT COMPLICATIONS Qualifiers: Diabetes mellitus type: type 2 (1) DVT (deep venous thrombosis) Code(s): I82.409 - ACUTE EMBOLISM AND THOMBOS UNSP DEEP VN UNSP LOWER EXTREMITY Qualifiers: DVT location: lower extremity Affected thrombotic vein of extremity: femoral Laterality: left Chronicity: acute Qualified Code(s): I82.412 - Acute embolism and thrombosis of left femoral vein APPRECIATE HEME & VASC CONSULTS NOT AC CANDIDATE NOT IVC FILTER CANDIDATE F/U REPEAT DUPLEX TO F/U ON DVT PROGRESSION PASTOR AUGUST
[2017-01-02] MEDS ORDERED: PHYTONADIONE 10 MG/1 ML AMP SQ SCH (11:15)
[2017-01-02] MEDS ORDERED: INSULIN DETEMIR 100 UNITS/ML MDV SQ SCH ×2 (12:12→22:00)
--- NOTE | 2017-01-02 13:20 | PN ---
Progress Note (short form) - Note Progress Note: Patient seen in follow up this morning. No events overnight. No complaints, feeling well, in good cheer. Meds reviewed. Current Medications Generic Name Dose Route Start Last Admin Trade Name Phyllis PRN Reason Stop Dose Admin Furosemide 40 mg 12/31/16 14:00 01/02/17 06:30 Lasix Injection - IVPUSH 40 mg BID@0600,1400 JADEN Administration Gabapentin 100 mg 12/31/16 22:00 01/02/17 10:20 Neurontin - PO 100 mg BID JADEN Administration Hydromorphone HCl 0.5 mg 01/01/17 19:41 01/02/17 03:24 Dilaudid Injection - IVPB 0.5 mg Q6H PRN Administration PAIN Piperacillin Sod/Tazobactam Sod 50 mls @ 100 mls/hr 01/01/17 10:00 Zosyn 2.25gm Ivpb (Pre-Docked) IVPB Q8H-IV [facility] Protocol Insulin Aspart 1 vial 12/31/16 16:30 01/02/17 12:23 Novolog Vial Sliding Scale - SQ Not Given ACHS [facility] Protocol Insulin Detemir 28 units 01/02/17 12:12 Levemir Vial SQ DAILY@0800 [facility] Insulin Detemir 10 units 01/02/17 22:00 Levemir Vial SQ HS [facility] Lactulose 20 gm 12/31/16 16:13 Cephulac (Oral Use) PO TID PRN CONSTIPATION Methadone HCl 10 mg 01/02/17 22:00 Dolophine - PO BID JADEN Pantoprazole Sodium 40 mg 01/01/17 10:00 01/02/17 10:21 Protonix - PO 40 mg DAILY JAD[facility] Administration Phytonadione 5 mg 01/02/17 11:15 Aqua Mephyton Injection - SQ 01/04/17 10:01 DAILY JADEN Rifaximin 550 mg 12/31/16 22:00 01/02/17 10:21 Xifaxan - PO 550 mg BID JADEN Administration On exam: Last Vital Signs Temp Pulse Resp BP Pulse Ox 96.4 F L 67 20 151/85 100 01/02/17 06:00 01/02/17 06:00 01/02/17 06:00 01/02/17 06:00 01/01/17 21:00 Well hydrated. Chest: clear, dressing R chest wall. Abdomen: Soft, distended, sone shifting dullness and umbilical hernia. CVS: S1, S2, no gallop or murmur. Skin: No angiomata. No petechiae or ecchymoses Neuro: Alert, with some confusion. Non-focal. No asterixis. CBC, BMP 01/02/17 09:00 01/02/17 09:00 Assessment: Well-known to hematology - Hep C with cirrhosis and liver decompensation. S/p placement pleurex catheter for recurrent hydrothorax. Requires intermittent drainage ascites. Chronic severe thrombocytopenia, with counts usually 25-50K. Mild anemia, at baseline. Mild coagulopathy - baseline INR circa 1.5. No suggestion of hemorrhage at this time, but certainly at risk. Requires close observation. If any concern for bleeding then would recommend platelet transfusion (albeit noting prior transfusion refractoriness) with target platelet count 50K). No suspicion of bleeding at this time - reasonable to hold platelets for now - difficulty with venous access noted. Will follow.
--- NOTE | 2017-01-02 14:09 | PN ---
Progress Note (short form) - Note Progress Note: PULMONARY SUCCESSFUL PLACEMENT OF RIGHT PLEUREX CATHETER 1500CC FLUID REMOVED SOB IMPROVED VSS ANICTERIC RIGHT PLEUREX CATHETER S1S2 SOFT/ASCITES LESS EDEMA LABS/MEDS/IMAGING NOTED HEPATIC HYDROTHORAX S/P PLACEMENT RIGHT PLEUREX INTERMITTENT DRAINAGE BASED ON SYMPTOMS AND RADIOGRAPH FINDINGS Minh GARZA MD Problem List - Problems (1) Cirrhosis of liver Code(s): K74.60 - UNSPECIFIED CIRRHOSIS OF LIVER Qualifiers: Hepatic cirrhosis type: unspecified hepatic cirrhosis Ascites presence : with ascites Qualified Code(s): K74.60 - Unspecified cirrhosis of liver (2) Portal hypertension Code(s): K76.6 - PORTAL HYPERTENSION (3) Radiculopathy Code(s): M54.10 - RADICULOPATHY, SITE UNSPECIFIED (4) Pleural effusion due to another disorder Code(s): J90 - PLEURAL EFFUSION, NOT ELSEWHERE CLASSIFIED
[2017-01-02] MEDS: PIPERACILLIN/TAZOB 2.25 GM 50 ML IVPB SCH (17:27)
[2017-01-02] MEDS ORDERED: INSULIN SLIDING SCALE (NOVOLOG) 1 VIAL SQ SCH ×2 (18:25→22:00)
[2017-01-02] MEDS ORDERED: INSULIN DETEMIR 100 UNITS/ML MDV SQ ONE (18:30)
--- NOTE | 2017-01-02 22:47 | HOSP ---
Addendum entered and electronically signed by Felisa Egan RES 01/03/17 08 :10: Anion gap-8, HC03 23, Serum osmolality 334 and calculated serum osmolality 327. Unlikely DKA and unlikely HHS. After receiving 15 U of Novolog sq, his blood glucose decreased to 514, hence patient is responding well to the treatment. Original Note: Subjective - Review of Symptoms Subjective: 01/02/2017 Was informed by the nurse that patient blood sugar is 669 and was told that Dr. Underwood adjusted the Levemir dose today. Ordered Basic metabolic panel and serum osmolality to see if he is in Hyperglycemic Hyperosmolar Syndrome (HHS). Ordered 15U of Novolog sq and to recheck the finger stick glucose. Will wait for the blood work and further evaluate. 01/03/2017 Labs noted, random glucose is decreasing. Serum osmolality is 334 and calculated Serum osmolality is 327. The difference is 7 which rules out HHS. Monitor finger stick. Watch for hypoglycemic episodes. Case discussed with Dr. Freeman. Physical Examination Vital Signs: Vital Signs Temperature 98.3 F 01/02/17 17:11 Pulse Rate 72 01/02/17 17:11 Respiratory Rate 18 01/02/17 21:00 Blood Pressure 158/86 01/02/17 17:11 O2 Sat by Pulse Oximetry (%) 98 01/02/17 21:00 Labs: CBC, BMP 01/02/17 09:00 01/02/17 21:20 Visit type - Emergency Visit Emergency Visit: Yes ED Registration Date: 12/31/16 Care time: The patient presented to the Emergency Department on the above date and was hospitalized for further evaluation of their emergent condition. - New Patient This patient is new to me today: Yes Date on this admission: 01/03/17 - Critical Care Critical Care patient: No
[2017-01-02 22:56] LABS: CALCIUM 8.1 mg/dL (8.5-10.1); CREATININE 1.7 mg/dL (0.7-1.3)
[2017-01-03 00:02] LABS: MAGNESIUM 1.7 mg/dL (1.8-2.4); PHOSPHOROUS 3.3 mg/dL (2.5-4.9)
--- NOTE | 2017-01-03 01:05 | CONSULT ---
Consult Consult Specialty:: endocrine Referred by:: Reason for Consultation:: iddm hyperglycemia - History of Present Illness Chief Complaint: weakness nausea History of Present Illness: 57 year old male with a past medical hx of HTN, hyperlipidemia, coronary artery disease, type 2 diabetes (on insulin), end stage liver disease (secondary to hepatitis C), hx of hepatic encephalopathy, and lymphoma thrombocytopenia, refractory to platelets has hyperglycmia ,blurred vision,weakness and nausea, recent sugar likely steroid sensitivity insulin resistant 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: Yes: Other (history of hepatic encephalopathy) Cardio/Vascular: Yes: CAD (reported prior MIs -> stents x4 at [facility] in 1998), HTN , Other (PPM palcement at time of NV in 1998, abnl EKG witth old inferior NV) Pulmonary: Yes: COPD, Other (PLEURAL EFFUSION WITH PREVIOUS thoracentesis and chest tube) Gastrointestinal: Yes: Ascites, Diverticulitis, Esophageal Varices (This patient does NOT have varices), GI Bleed (s/p multiple blood transfusions), Other (gastric varices ) Hepatobiliary: Yes: Cirrhosis (ESLD), Hepatitis C, Other (PORTAL HYPERTENSION) Renal/: Yes: Renal Inusuff (CKD (baseline 0.9-1.1)) Psych: Yes: Addictions (hx of polysubstance abuse & IVDA on maintenance Methadone), Anxiety Endocrine: Yes: Diabetes Mellitus (insulin-dependent) - Past Surgical History Past Surgical History: Yes: Permanent Pacemaker, Stent, Upper Endoscopy (with gastric varices/sclerotherapy) - Alcohol/Substance Use Hx Alcohol Use: No History of Substance Use: reports: Heroin (on methadone) - Smoking History Smoking history: Current every day smoker Have you smoked in the past 12 months: Yes Aproximately how many cigarettes per day: 5 - Social History Usual Living Arrangement: Other ( from . The youngest of his 3 children lives with him) ADL: Independent Occupation: not employed History of Recent Travel: No Home Medications - Allergies Allergies/Adverse Reactions: Allergies Allergy/AdvReac Type Severity Reaction Status Date / Time nalbuphine HCl [From Nubain] Allergy Verified 12/31/16 08:19 octreotide AdvReac Verified 12/31/16 08:19 - Home Medications Home Medications: Ambulatory Orders Albuterol 2.5/Ipratropium 0.5 [Duoneb -] 1 amp NEB Q6H PRN #120 amp 10/25/16 Furosemide [Lasix -] 40 mg PO DAILY #30 tablet 10/25/16 Pantoprazole Sodium [Protonix -] 40 mg PO DAILY #30 tablet.ec 10/25/16 Rifaximin [Xifaxan -] 550 mg PO BID #60 tablet 10/25/16 Methadone [Dolophine -] 10 mg PO DAILY 11/05/16 Insulin (Levemir) [Levemir Vial] 20 units SQ HS #0 11/08/16 Lactulose (Oral Use) [Cephulac -] 30 gm PO QID PRN #240 grams 11/08/16 Spironolactone [Aldactone -] 50 mg PO DAILY #30 tablet 11/08/16 Gabapentin [Neurontin -] 100 mg PO BID #60 capsule 12/19/16 Metoprolol Tartrate [Lopressor -] 25 mg PO BID #60 tablet 12/19/16 Rifaximin [Xifaxan -] 550 mg PO BID #20 tablet 12/31/16 Family Disease History - Family Disease History Family Disease History: Heart Disease: Father (OPEN HEART SX,), CA: Mother (BREAST CANCER,) Review of Systems - Review of Systems Constitutional: reports: Weakness Eyes: reports: Blurred Vision HENT: reports: No Symptoms Neck: reports: Decreased ROM Cardiovascular: reports: Shortness of Breath Respiratory: reports: Exercise Intolerance, SOB, SOB on Exertion Gastrointestinal: reports: Indigestion, Nausea Genitourinary: reports: No Symptoms Musculoskeletal: reports: Decreased ROM, Muscle Pain, Muscle Cramps, Muscle Weakness Neurological: reports: Confusion, Tremors, Weakness Endocrine: reports: Increased Hunger, Intolerance to Cold, Unexplained Weight Gain Psychiatric: reports: Altered Sleep Pattern, Anxiety, Panic Physical Exam Vital Signs: Vital Signs Temperature 98 F 01/02/17 23:21 Pulse Rate 72 01/02/17 23:21 Respiratory Rate 20 01/02/17 23:21 Blood Pressure 151/92 01/02/17 23:21 O2 Sat by Pulse Oximetry (%) 98 01/02/17 21:00 Constitutional: Yes: Anxious Eyes: Yes: EOM Intact HENT: Yes: Normocephalic Neck: Yes: Trachea Midline Cardiovascular: Yes: Regular Rate and Rhythm Respiratory: Yes: Orthopnea, SOB, SOB on Exertion, Tachypnea Gastrointestinal: Yes: Abdomen, Obese, Hypoactive Bowel Sounds ...Rectal Exam: Yes: Deferred Renal/: Yes: WNL Breast(s): Yes: WNL Musculoskeletal: Yes: Muscle Pain, Muscle Weakness Neurological: Yes: Alert, Oriented Labs: CBC, BMP 01/02/17 09:00 01/02/17 21:20 Problem List - Problems (1) Atrial fibrillation with rapid ventricular response Code(s): I48.91 - UNSPECIFIED ATRIAL FIBRILLATION (2) Cirrhosis of liver Code(s): K74.60 - UNSPECIFIED CIRRHOSIS OF LIVER Qualifiers: Hepatic cirrhosis type: unspecified hepatic cirrhosis Ascites presence : with ascites Qualified Code(s): K74.60 - Unspecified cirrhosis of liver (3) DVT (deep venous thrombosis) Code(s): I82.409 - ACUTE EMBOLISM AND THOMBOS UNSP DEEP VN UNSP LOWER EXTREMITY Qualifiers: DVT location: lower extremity Affected thrombotic vein of extremity: femoral Laterality: left Chronicity: acute Qualified Code(s): I82.412 - Acute embolism and thrombosis of left femoral vein (4) Hyperglycemia Code(s): R73.9 - HYPERGLYCEMIA, UNSPECIFIED (5) IDDM (insulin dependent diabetes mellitus) Code(s): E11.9 - TYPE 2 DIABETES MELLITUS WITHOUT COMPLICATIONS Z79.4 - SENIOR CARE (CURRENT) USE OF INSULIN Assessment/Plan Current Active Problems Atrial fibrillation with rapid ventricular response (Acute) Cirrhosis of liver (Acute) DVT (deep venous thrombosis) (Acute) Abnormal Lab Results 01/02/17 01/02/17 01/02/17 09:00 09:00 09:00 RBC 3.11 L Hgb 10.6 L Hct 31.2 L MCV 100.5 H RDW 17.0 H Plt Count 35 L* Neutrophils % 88.8 H D Lymphocytes % 5.5 L D INR 1.46 H Sodium Potassium Anion Gap 5 L BUN 43 H Creatinine 1.6 H D Random Glucose 516 H* D Serum Osmolality Calcium 8.4 L Magnesium Alkaline Phosphatase 212 H Albumin 2.3 L 01/02/17 01/02/17 01/02/17 17:30 21:20 21:20 RBC Hgb Hct MCV RDW Plt Count Neutrophils % Lymphocytes % INR Sodium 135 L Potassium 5.3 H Anion Gap BUN 48 H Creatinine 1.7 H Random Glucose 668 H* D 669 H* Serum Osmolality 334 H Calcium 8.1 L Magnesium Alkaline Phosphatase Albumin 01/02/17 21:20 RBC Hgb Hct MCV RDW Plt Count Neutrophils % Lymphocytes % INR Sodium Potassium Anion Gap BUN Creatinine Random Glucose Serum Osmolality Calcium Magnesium 1.7 L Alkaline Phosphatase Albumin Current Medications Generic Name Dose Route Start Last Admin Trade Name Freq PRN Reason Stop Dose Admin Furosemide 40 mg 12/31/16 14:00 01/02/17 13:19 Lasix Injection - IVPUSH 40 mg BID@0600,1400 JADEN Administration Gabapentin 100 mg 12/31/16 22:00 01/02/17 21:05 Neurontin - PO 100 mg BID JADEN Administration Hydromorphone HCl 0.5 mg 01/01/17 19:41 01/02/17 23:25 Dilaudid Injection - IVPB 0.5 mg Q6H PRN Administration PAIN Piperacillin Sod/Tazobactam Sod 50 mls @ 100 mls/hr 01/02/17 18:00 01/02/17 17: 27 Zosyn 2.25gm Ivpb (Pre-Docked) IVPB 100 mls/hr Q8H-IV JADEN Administration Protocol Insulin Aspart 1 vial 01/02/17 22:00 Novolog Vial Sliding Scale - SQ ACHS [facility] Protocol Insulin Aspart 15 units 01/03/17 22:43 01/02/17 22:55 Novolog SQ 01/03/17 22:44 15 units ONCE ONE Administration Insulin Detemir 48 units 01/03/17 08:00 Levemir Vial SQ DAILY@0800 [facility] Insulin Detemir 30 units 01/02/17 22:00 01/02/17 21:49 Levemir Vial SQ 30 units HS [facility] Administration Lactulose 20 gm 12/31/16 16:13 Cephulac (Oral Use) PO TID PRN CONSTIPATION Methadone HCl 10 mg 01/02/17 22:00 01/02/17 21:05 Dolophine - PO 10 mg BID JADEN Administration Pantoprazole Sodium 40 mg 01/01/17 10:00 01/02/17 10:21 Protonix - PO 40 mg DAILY JADEN Administration Rifaximin 550 mg 12/31/16 22:00 01/02/17 21:05 Xifaxan - PO 550 mg BID JADEN Administration Diabetes (Acute) Hepatic encephalopathy (Acute) Hyperglycemia (Acute) Pleural effusion due to another disorder (Acute) Portal hypertension (Acute) Radiculopathy (Acute) Right inguinal hernia (Acute) Tachypnea (Acute) Type 2 diabetes mellitus with other diabetic neurological complication (Acute) plan: novolog insulin sliding scale dose titration\ levemir 48 units am levemir 30 units hs may require higher doses as levels adjustment needed
[2017-01-03] MEDS: INSULIN SLIDING SCALE (NOVOLOG) 1 VIAL SQ SCH ×6 (01:32→21:36)
[2017-01-03] MEDS: PIPERACILLIN/TAZOB 2.25 GM 50 ML IVPB SCH ×3 (01:35→17:40)
[2017-01-03] MEDS: FUROSEMIDE 40 MG/4 ML INJECTABLE VIAL IVPUSH SCH ×2 (06:37→13:50)
[2017-01-03 07:45] LABS: BASOPHIL 0.2 % (0-2.0); EOSINOPHIL 0.1 % (0-4.5); MCH 34.3 pg (25.7-33.7); MCHC 34.5 g/dl (32.0-35.9); MEAN CELL VOLUME 99.2 fl (80-96); MEAN PLT VOLUME 9.8 fl (7.5-11.1); NEUTROPHILS 85.9 % (42.8-82.8); RDW 16.8 % (11.9-15.9); WHITE BLOOD COUNT 5.1 K/mm3 (4.0-10.0)
[2017-01-03 08:08] LABS: PLATELET COUNT 34 K/MM3 (134-434)
[2017-01-03 08:14] LABS: ALBUMIN 2.2 g/dl (3.4-5.0); CREATININE 1.6 mg/dL (0.7-1.3); INR 1.52 (0.82-1.09); PROTHROMBIN TIME (PATIENT) 16.9 SEC (9.98-11.88)
[2017-01-03 08:19] LABS: BILIRUBIN,TOTAL 0.7 mg/dL (0.2-1.0); TOT PROT 7.3 g/dl (6.4-8.2)
[2017-01-03] MEDS: INSULIN DETEMIR 100 UNITS/ML MDV SQ SCH ×2 (08:28→21:33)
[2017-01-03] MEDS: METHADONE HCL 5 MG TABLET PO SCH ×3 (08:28→21:35)
[2017-01-03] MEDS: RIFAXIMIN 550 MG TABLET (UD) PO SCH ×2 (09:37→21:35)
[2017-01-03] MEDS: PANTOPRAZOLE 40 MG TABLET (FP) PO SCH (09:37)
[2017-01-03] MEDS: GABAPENTIN 100 MG CAPSULE (FP) PO SCH ×2 (09:37→21:35)
--- NOTE | 2017-01-03 11:33 | PN ---
Progress Note (short form) - Note Progress Note: PULMONARY initial 1500cc fluid removed s/p placement of pleurex no drainage initiated since VSS ANICTERIC RIGHT PLEUREX CATHETER/DIMINISHED BREATH SOUNDS S1S2 SOFT/ASCITES LESS EDEMA LABS/MEDS/IMAGING NOTED HEPATIC HYDROTHORAX S/P PLACEMENT RIGHT PLEUREX INITIATE INTERMITTENT DRAINAGE BASED ON SYMPTOMS AND RADIOGRAPH FINDINGS Minh GARZA MD Problem List - Problems (1) Cirrhosis of liver Code(s): K74.60 - UNSPECIFIED CIRRHOSIS OF LIVER Qualifiers: Hepatic cirrhosis type: unspecified hepatic cirrhosis Ascites presence : with ascites Qualified Code(s): K74.60 - Unspecified cirrhosis of liver (2) Portal hypertension Code(s): K76.6 - PORTAL HYPERTENSION (3) Radiculopathy Code(s): M54.10 - RADICULOPATHY, SITE UNSPECIFIED (4) Pleural effusion due to another disorder Code(s): J90 - PLEURAL EFFUSION, NOT ELSEWHERE CLASSIFIED
[2017-01-03] MEDS: HYDROmorphone HCL CARPU-JECT 1 MG/1 ML DISP.SYRIN IVPB PRN ×2 (12:29→18:38)
--- NOTE | 2017-01-03 13:22 | PN ---
Progress Note, Physician Chief Complaint: NO OVERT CONFUSION SEEMS AT BASELINE REQUESTING SLEEPING PILL BS IMPROVED FEELS BETTER - Current Medication List Current Medications: Active Medications Furosemide (Lasix Injection -) 40 mg IVPUSH BID@0600,1400 [facility] Last Admin: 01/03/17 06:37 Dose: 40 mg Gabapentin (Neurontin -) 100 mg PO BID [facility] Last Admin: 01/03/17 09:37 Dose: 100 mg Hydromorphone HCl (Dilaudid Injection -) 0.5 mg IVPB Q6H PRN PRN Reason: PAIN Last Admin: 01/03/17 12:29 Dose: 0.5 mg Piperacillin Sod/Tazobactam Sod (Zosyn 2.25gm Ivpb (Pre-Docked)) 50 mls @ 100 mls/hr IVPB Q8H-IV J[facility] PRN Reason: Protocol Last Admin: 01/03/17 09:37 Dose: 100 mls/hr Insulin Aspart (Novolog Vial Sliding Scale -) 1 vial SQ Q4HPO [facility] PRN Reason: Protocol Last Admin: 01/03/17 10:44 Dose: 11 unit Insulin Detemir (Levemir Vial) 48 units SQ DAILY@0800 [facility] Last Admin: 01/03/17 08:28 Dose: 48 units Insulin Detemir (Levemir Vial) 30 units SQ HS [facility] Last Admin: 01/02/17 21:49 Dose: 30 units Lactulose (Cephulac (Oral Use)) 20 gm PO TID PRN PRN Reason: CONSTIPATION Methadone HCl (Dolophine -) 10 mg PO BID [facility] Last Admin: 01/03/17 09:35 Dose: Not Given Pantoprazole Sodium (Protonix -) 40 mg PO DAILY [facility] Last Admin: 01/03/17 09:37 Dose: 40 mg Rifaximin (Xifaxan -) 550 mg PO BID [facility] Last Admin: 01/03/17 09:37 Dose: 550 mg - Objective Vital Signs: Vital Signs Temperature 99.1 F 01/03/17 06:12 Pulse Rate 77 01/03/17 06:12 Respiratory Rate 18 01/03/17 06:12 Blood Pressure 130/64 01/03/17 06:12 O2 Sat by Pulse Oximetry (%) 98 01/02/17 21:00 Cardiovascular: Yes: WNL Respiratory: Yes: WNL Gastrointestinal: Yes: Distention Edema: Yes Labs: CBC, BMP 01/03/17 06:15 01/03/17 06:15 INR, PTT INR 1.52 (0.82-1.09) H 01/03/17 06:15 Problem List - Problems (1) DVT (deep venous thrombosis) Code(s): I82.409 - ACUTE EMBOLISM AND THOMBOS UNSP DEEP VN UNSP LOWER EXTREMITY Qualifiers: DVT location: lower extremity Affected thrombotic vein of extremity: femoral Laterality: left Chronicity: acute Qualified Code(s): I82.412 - Acute embolism and thrombosis of left femoral vein (2) Cirrhosis of liver Code(s): K74.60 - UNSPECIFIED CIRRHOSIS OF LIVER Qualifiers: Hepatic cirrhosis type: unspecified hepatic cirrhosis Ascites presence : with ascites Qualified Code(s): K74.60 - Unspecified cirrhosis of liver (3) Diabetes Code(s): E11.9 - TYPE 2 DIABETES MELLITUS WITHOUT COMPLICATIONS Qualifiers: Diabetes mellitus type: type 2 (4) Hepatic encephalopathy Code(s): K72.90 - HEPATIC FAILURE, UNSPECIFIED WITHOUT COMA (5) Type 2 diabetes mellitus with other diabetic neurological complication Code(s): E11.49 - TYPE 2 DIABETES W OTH DIABETIC NEUROLOGICAL COMPLICATION (6) Anxiety Code(s): F41.9 - ANXIETY DISORDER, UNSPECIFIED (7) CKD (chronic kidney disease) Code(s): N18.9 - CHRONIC KIDNEY DISEASE, UNSPECIFIED Qualifiers: (8) Edema Code(s): R60.9 - EDEMA, UNSPECIFIED Qualifiers: Edema type: unspecified Qualified Code(s): R60.9 - Edema, unspecified (9) Esophageal varices Code(s): I85.00 - ESOPHAGEAL VARICES WITHOUT BLEEDING Qualifiers: Esophageal varices type: secondary Esophageal varices bleeding: without bleeding Qualified Code(s): I85.10 - Secondary esophageal varices without bleeding (10) Heroin abuse Code(s): F11.10 - OPIOID ABUSE, UNCOMPLICATED Assessment/Plan (1) Fall Assessment/Plan: PT may need rehab Code(s): W19.XXXA - UNSPECIFIED FALL, INITIAL ENCOUNTER Qualifiers: Encounter type: initial encounter Qualified Code(s): W19.XXXA - Unspecified fall, initial encounter (2) Tachypnea Assessment/Plan: sec to fluidi n lung vs infiltrate iv abx ct chest pulm on case Code(s): R06.82 - TACHYPNEA, NOT ELSEWHERE CLASSIFIED (3) Cirrhosis of liver Assessment/Plan: GI eval lactulose rifaximin Code(s): K74.60 - UNSPECIFIED CIRRHOSIS OF LIVER Qualifiers: Hepatic cirrhosis type: unspecified hepatic cirrhosis Ascites presence : with ascites Qualified Code(s): K74.60 - Unspecified cirrhosis of liver (4) Hepatic encephalopathy Assessment/Plan: laculose trend ammonia -> increased does not seem confused today (at baseline) Code(s): K72.90 - HEPATIC FAILURE, UNSPECIFIED WITHOUT COMA (5) Sedative dependence Assessment/Plan: methaodone 15mg -> 10bid Code(s): F13.20 - SEDATIVE, HYPNOTIC OR ANXIOLYTIC DEPENDENCE, UNCOMPLICATED (6) Ascites Assessment/Plan: ultrasound liver possible paracentsis heme eval will need FFP prior to procedure and platelet count is low will need platleltet and angelo idcations Code(s): R18.8 - OTHER ASCITES Qualifiers: Ascites type: due to alcoholic cirrhosis Qualified Code(s): K70.31 - Alcoholic cirrhosis of liver with ascites (7) Edema Assessment/Plan: lasix bid Code(s): R60.9 - EDEMA, UNSPECIFIED Qualifiers: Edema type: unspecified Qualified Code(s): R60.9 - Edema, unspecified (8) Hydrothorax Assessment/Plan: ct chest to elvaluate fluid vs inliftrate pulm lasix Code(s): J94.8 - OTHER SPECIFIED PLEURAL CONDITIONS (9) Thrombocytopenia Assessment/Plan: heme Code(s): D69.6 - THROMBOCYTOPENIA, UNSPECIFIED (10) Diabetes Assessment/Plan: BGM sliding scalre hga1c levemir -> increased endo now on case Code(s): E11.9 - TYPE 2 DIABETES MELLITUS WITHOUT COMPLICATIONS Qualifiers: Diabetes mellitus type: type 2 (1) DVT (deep venous thrombosis) Code(s): I82.409 - ACUTE EMBOLISM AND THOMBOS UNSP DEEP VN UNSP LOWER EXTREMITY Qualifiers: DVT location: lower extremity Affected thrombotic vein of extremity: femoral Laterality: left Chronicity: acute Qualified Code(s): I82.412 - Acute embolism and thrombosis of left femoral vein APPRECIATE HEME & VASC CONSULTS NOT AC CANDIDATE NOT IVC FILTER CANDIDATE F/U REPEAT DUPLEX TO F/U ON DVT 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
[2017-01-03] MEDS: LACTULOSE 20 GM/30 ML UDC (FOR ORAL USE ONLY) PO PRN (13:51)
--- NOTE | 2017-01-03 15:48 | PN ---
Progress Note (short form) - Note Progress Note: Patient seen in follow up this morning. No events overnight. Feeing better following draining of a liter of fluid from his chest. No complaints, feeling well, in good cheer. Meds reviewed. Current Medications Generic Name Dose Route Start Last Admin Trade Name Phyllis PRN Reason Stop Dose Admin Furosemide 40 mg 12/31/16 14:00 01/02/17 06:30 Lasix Injection - IVPUSH 40 mg BID@0600,1400 JADEN Administration Gabapentin 100 mg 12/31/16 22:00 01/02/17 10:20 Neurontin - PO 100 mg BID JADEN Administration Hydromorphone HCl 0.5 mg 01/01/17 19:41 01/02/17 03:24 Dilaudid Injection - IVPB 0.5 mg Q6H PRN Administration PAIN Piperacillin Sod/Tazobactam Sod 50 mls @ 100 mls/hr 01/01/17 10:00 Zosyn 2.25gm Ivpb (Pre-Docked) IVPB Q8H-IV [facility] Protocol Insulin Aspart 1 vial 12/31/16 16:30 01/02/17 12:23 Novolog Vial Sliding Scale - SQ Not Given ACHS [facility] Protocol Insulin Detemir 28 units 01/02/17 12:12 Levemir Vial SQ DAILY@0800 [facility] Insulin Detemir 10 units 01/02/17 22:00 Levemir Vial SQ HS [facility] Lactulose 20 gm 12/31/16 16:13 Cephulac (Oral Use) PO TID PRN CONSTIPATION Methadone HCl 10 mg 01/02/17 22:00 Dolophine - PO BID JADEN Pantoprazole Sodium 40 mg 01/01/17 10:00 01/02/17 10:21 Protonix - PO 40 mg DAILY JADEN Administration Phytonadione 5 mg 01/02/17 11:15 Aqua Mephyton Injection - SQ 01/04/17 10:01 DAILY JADEN Rifaximin 550 mg 12/31/16 22:00 01/02/17 10:21 Xifaxan - PO 550 mg BID JADEN Administration On exam: Last Vital Signs Temp Pulse Resp BP Pulse Ox 97.6 F 71 18 143/91 98 01/03/17 14:00 01/03/17 14:00 01/03/17 10:00 01/03/17 14:00 01/03/17 09:00 Well hydrated. Chest: clear, dressing R chest wall. Abdomen: Soft, distended, sone shifting dullness and umbilical hernia. CVS: S1, S2, no gallop or murmur. Skin: No angiomata. No petechiae or ecchymoses Neuro: Alert, with some confusion. Non-focal. No asterixis. CBC, BMP 01/03/17 06:15 01/03/17 06:15 Assessment: Well-known to hematology - Hep C with cirrhosis and liver decompensation. S/p placement pleurex catheter for recurrent hydrothorax. Requires intermittent drainage ascites. Chronic severe thrombocytopenia, with counts usually 25-50K. Mild anemia, at baseline. Mild coagulopathy - baseline INR circa 1.5. No suggestion of hemorrhage at this time, but certainly at risk. Requires close observation. If any concern for bleeding then would recommend platelet transfusion (albeit noting prior transfusion refractoriness) with target platelet count 50K). No suspicion of bleeding at this time - reasonable to hold platelets for now - difficulty with venous access noted. Will follow.
--- NOTE | 2017-01-03 16:04 | PN ---
Progress Note (short form) - Note Progress Note: NEUROLOGY Follow-up: Events reviewed, patient examined. Ambulating without difficulty. Denies pain. On antibiotics. No syncope or presyncopal symptoms. Exam unchanged. Mild encephalopathy. Sl. Dysarthric. Right ankle DF, inversion, eversion, plantarflexion 4-/5. Absent R AJ Gait stable. Much improved. Mild residual steppage on the right. IMP: Mild chronic OMS Improving Right sciatic Mononeuropathy (compressive). Thank you very much, Eddie Pereira MD
[2017-01-03] MEDS: ZOLPIDEM TARTRATE 5 MG TABLET PO PRN (21:35)
[2017-01-03] MEDS: METOPROLOL TARTRATE 25 MG TABLET (FP) PO SCH (21:35)
[2017-01-03] MEDS ORDERED: Insulin (LOG) Aspart 100 UNITS/ML VIAL SQ ONE (22:43)
[2017-01-04] MEDS: PIPERACILLIN/TAZOB 2.25 GM 50 ML IVPB SCH ×3 (01:23→17:04)
[2017-01-04] MEDS: INSULIN SLIDING SCALE (NOVOLOG) 1 VIAL SQ SCH ×7 (01:24→21:45)
[2017-01-04] MEDS: HYDROmorphone HCL CARPU-JECT 1 MG/1 ML DISP.SYRIN IVPB PRN (03:16)
[2017-01-04] MEDS: FUROSEMIDE 40 MG/4 ML INJECTABLE VIAL IVPUSH SCH ×2 (05:52→13:40)
[2017-01-04 08:42] LABS: BASOPHIL 0.2 % (0-2.0); EOSINOPHIL 1.6 % (0-4.5); MCH 33.8 pg (25.7-33.7); MCHC 34.4 g/dl (32.0-35.9); MEAN CELL VOLUME 98.4 fl (80-96); MEAN PLT VOLUME 9.3 fl (7.5-11.1); NEUTROPHILS 74.3 % (42.8-82.8); RDW 17.2 % (11.9-15.9); WHITE BLOOD COUNT 4.9 K/mm3 (4.0-10.0)
[2017-01-04 08:54] LABS: ALBUMIN 2.2 g/dl (3.4-5.0); BILIRUBIN,TOTAL 0.9 mg/dL (0.2-1.0); CREATININE 1.5 mg/dL (0.7-1.3); TOT PROT 7.6 g/dl (6.4-8.2)
--- NOTE | 2017-01-04 10:07 | PN ---
Progress Note, Physician Chief Complaint: patient is more awake alert today breathing is better then on admission but still is having shortness of breath walking with cane s/p IR drainage of 1500ml cc from right lung on 01/01 and drained 1000c yesterday - Current Medication List Current Medications: Active Medications Furosemide (Lasix Injection -) 40 mg IVPUSH BID@0600,1400 [facility] Last Admin: 01/04/17 05:52 Dose: 40 mg Gabapentin (Neurontin -) 100 mg PO BID [facility] Last Admin: 01/03/17 21:35 Dose: 100 mg Hydromorphone HCl (Dilaudid Injection -) 0.5 mg IVPB Q6H PRN PRN Reason: PAIN Last Admin: 01/04/17 03:16 Dose: 0.5 mg Piperacillin Sod/Tazobactam Sod (Zosyn 2.25gm Ivpb (Pre-Docked)) 50 mls @ 100 mls/hr IVPB Q8H-IV [facility] PRN Reason: Protocol Last Admin: 01/04/17 01:23 Dose: 100 mls/hr Insulin Aspart (Novolog Vial Sliding Scale -) 1 vial SQ Q4HPO [facility] PRN Reason: Protocol Last Admin: 01/04/17 05:55 Dose: Not Given Insulin Detemir (Levemir Vial) 48 units SQ DAILY@0800 [facility] Last Admin: 01/03/17 08:28 Dose: 48 units Insulin Detemir (Levemir Vial) 30 units SQ HS [facility] Last Admin: 01/03/17 21:33 Dose: 30 units Lactulose (Cephulac (Oral Use)) 20 gm PO QID PRN PRN Reason: CONSTIPATION Last Admin: 01/03/17 13:51 Dose: 20 gm Methadone HCl (Dolophine -) 10 mg PO BID [facility] Last Admin: 01/03/17 21:35 Dose: 10 mg Metoprolol Tartrate (Lopressor -) 25 mg PO BID [facility] Last Admin: 01/03/17 21:35 Dose: 25 mg Pantoprazole Sodium (Protonix -) 40 mg PO DAILY [facility] Last Admin: 01/03/17 09:37 Dose: 40 mg Rifaximin (Xifaxan -) 550 mg PO BID [facility] Last Admin: 01/03/17 21:35 Dose: 550 mg Zolpidem Tartrate (Ambien -) 5 mg PO HS PRN PRN Reason: INSOMNIA Last Admin: 01/03/17 21:35 Dose: 5 mg - Objective Vital Signs: Vital Signs Temperature 97.3 F L 01/04/17 06:00 Pulse Rate 125 H 01/04/17 06:00 Respiratory Rate 20 01/04/17 06:00 Blood Pressure 125/76 01/04/17 06:00 O2 Sat by Pulse Oximetry (%) 98 01/03/17 21:00 Constitutional: Yes: Calm, Thin Cardiovascular: Yes: Regular Rate and Rhythm, S1, S2 Respiratory: Yes: Diminished (on right cta on left side) Gastrointestinal: Yes: Soft Extremities: Yes: Other (chronic venous stasis changes) Edema: Yes Neurological: Yes: Alert, Oriented Labs: CBC, BMP 01/04/17 06:15 INR, PTT INR 1.52 (0.82-1.09) H 01/03/17 06:15 Problem List - Problems (1) DVT (deep venous thrombosis) Assessment/Plan: seen by vascular sx plan is to repeat doppler today to see if dvt is extending or not as patient is risk for bleeding given coagulopathy and thrombocytopenia Code(s): I82.409 - ACUTE EMBOLISM AND THOMBOS UNSP DEEP VN UNSP LOWER EXTREMITY Qualifiers: DVT location: lower extremity Affected thrombotic vein of extremity: femoral Laterality: left Chronicity: acute Qualified Code(s): I82.412 - Acute embolism and thrombosis of left femoral vein (2) Tachypnea Assessment/Plan: pleurex cath- 1500ml cc drained on 01/01 to get drained today and then repeat cxr. Code(s): R06.82 - TACHYPNEA, NOT ELSEWHERE CLASSIFIED (3) Fall Assessment/Plan: does not want to go for rehab ambulating with cane Code(s): W19.XXXA - UNSPECIFIED FALL, INITIAL ENCOUNTER Qualifiers: Encounter type: initial encounter Qualified Code(s): W19.XXXA - Unspecified fall, initial encounter (4) Cirrhosis of liver Assessment/Plan: lactulose rifaximin Code(s): K74.60 - UNSPECIFIED CIRRHOSIS OF LIVER Qualifiers: Hepatic cirrhosis type: unspecified hepatic cirrhosis Ascites presence : with ascites Qualified Code(s): K74.60 - Unspecified cirrhosis of liver (5) Hepatic encephalopathy Assessment/Plan: laculose trend ammonia Code(s): K72.90 - HEPATIC FAILURE, UNSPECIFIED WITHOUT COMA (6) Sedative dependence Assessment/Plan: methaodone 15mg Code(s): F13.20 - SEDATIVE, HYPNOTIC OR ANXIOLYTIC DEPENDENCE, UNCOMPLICATED (7) Ascites Assessment/Plan: s/p pleurex cath to get drained again today Code(s): R18.8 - OTHER ASCITES Qualifiers: Ascites type: due to alcoholic cirrhosis Qualified Code(s): K70.31 - Alcoholic cirrhosis of liver with ascites (8) Edema Assessment/Plan: postive DVT in left leg- appreciate vascular eval no ivc filter as yet will repeat ultrasound of leg to see if dvt is extending or not Code(s): R60.9 - EDEMA, UNSPECIFIED Qualifiers: Edema type: unspecified Qualified Code(s): R60.9 - Edema, unspecified (9) Hydrothorax Assessment/Plan: to get drained again today by IR s/p pleurex cath on lasix as well Code(s): J94.8 - OTHER SPECIFIED PLEURAL CONDITIONS (10) Thrombocytopenia Assessment/Plan: s/p platelet transfusion on 10 sec to hyperspleenism,cirrhosis Code(s): D69.6 - THROMBOCYTOPENIA, UNSPECIFIED (11) Diabetes Assessment/Plan: BGM sliding scalre hga1c levemir Code(s): E11.9 - TYPE 2 DIABETES MELLITUS WITHOUT COMPLICATIONS Qualifiers: Diabetes mellitus type: type 2
[2017-01-04] MEDS: METOPROLOL TARTRATE 25 MG TABLET (FP) PO SCH ×2 (10:43→21:22)
[2017-01-04] MEDS: RIFAXIMIN 550 MG TABLET (UD) PO SCH ×2 (10:43→21:22)
[2017-01-04] MEDS: PANTOPRAZOLE 40 MG TABLET (FP) PO SCH (10:43)
[2017-01-04] MEDS: METHADONE HCL 5 MG TABLET PO SCH ×2 (10:43→21:22)
[2017-01-04] MEDS: GABAPENTIN 100 MG CAPSULE (FP) PO SCH ×2 (10:43→21:22)
--- NOTE | 2017-01-04 10:49 | PN ---
Progress Note (short form) - Note Progress Note: PULMONARY Some shortness of breath. Pleur-x drained additional 1L today. Last Vital Signs Temp Pulse Resp BP Pulse Ox 97.3 F L 125 H 20 125/76 98 01/04/17 06:00 01/04/17 06:00 01/04/17 06:00 01/04/17 06:00 01/03/17 21:00 Gen: NAD at rest Heart: RRR Lung: decreased breath sounds right base 1/2 way up Abd: softly distended, nontender Ext: + edema CBC, BMP 01/04/17 06:15 01/04/17 06:15 Active Medications Furosemide (Lasix Injection -) 40 mg IVPUSH BID@0600,1400 [facility] Last Admin: 01/04/17 05:52 Dose: 40 mg Gabapentin (Neurontin -) 100 mg PO BID [facility] Last Admin: 01/04/17 10:43 Dose: 100 mg Hydromorphone HCl (Dilaudid Injection -) 0.5 mg IVPB Q6H PRN PRN Reason: PAIN Last Admin: 01/04/17 03:16 Dose: 0.5 mg Piperacillin Sod/Tazobactam Sod (Zosyn 2.25gm Ivpb (Pre-Docked)) 50 mls @ 100 mls/hr IVPB Q8H-IV JADEN PRN Reason: Protocol Last Admin: 01/04/17 10:43 Dose: 100 mls/hr Insulin Aspart (Novolog Vial Sliding Scale -) 1 vial SQ Q4HPO [facility] PRN Reason: Protocol Last Admin: 01/04/17 05:55 Dose: Not Given Insulin Detemir (Levemir Vial) 48 units SQ DAILY@0800 [facility] Last Admin: 01/03/17 08:28 Dose: 48 units Insulin Detemir (Levemir Vial) 30 units SQ HS [facility] Last Admin: 01/03/17 21:33 Dose: 30 units Lactulose (Cephulac (Oral Use)) 20 gm PO QID PRN PRN Reason: CONSTIPATION Last Admin: 01/03/17 13:51 Dose: 20 gm Methadone HCl (Dolophine -) 10 mg PO BID [facility] Last Admin: 01/04/17 10:43 Dose: 10 mg Metoprolol Tartrate (Lopressor -) 25 mg PO BID [facility] Last Admin: 01/04/17 10:43 Dose: 25 mg Pantoprazole Sodium (Protonix -) 40 mg PO DAILY [facility] Last Admin: 01/04/17 10:43 Dose: 40 mg Rifaximin (Xifaxan -) 550 mg PO BID [facility] Last Admin: 01/04/17 10:43 Dose: 550 mg Zolpidem Tartrate (Ambien -) 5 mg PO HS PRN PRN Reason: INSOMNIA Last Admin: 01/03/17 21:35 Dose: 5 mg A/P Liver Cirrhosis Ascites Pleural Effusion/Hepatic Hydrothorax s/p R pleur-x placement Hepatic Encephalopathy LLE DVT Thrombocytopenia Coagulopathy - continue lasix - will add on aldactone - ideally titrate diuretics to control accumulation of ascites/hydrothorax and minimize pleural drainage and avoid excessive protein/electrolyte losses - lactulose/rifaximin - for repeat dopplers - monitor platelets, coags - DVT prophylaxis
[2017-01-04] MEDS: SPIRONOLACTONE 25 MG TABLET (FP) PO SCH (12:36)
[2017-01-04] MEDS: INSULIN DETEMIR 100 UNITS/ML MDV SQ SCH ×2 (12:37→21:30)
[2017-01-04 15:36] LABS: PLATELET COUNT 43 K/MM3 (134-434); PLATELET ESTIMATE MOD DECREASED (NORMAL)
--- NOTE | 2017-01-04 19:55 | PN ---
Progress Note (short form) - Note Progress Note: Vascular Surgery Pt seen and examined. Left DVT For repeat duplex venous isael to see if clot is extending. Pt has extensive medical history with thrombocytopenia. Will follow duplex. If patient cannot be anticoagulated, would suggest IVC filter if stable to have procedure under sedation. Daquan Gallagher DO
--- NOTE | 2017-01-04 20:47 | PN ---
Progress Note (short form) - Note Progress Note: Patient seen and examined SOB is much improved AFVSS Cor: RSR, No murmurs, No gallops Lungs: decreased at bases Abd: Soft, Normal bowel sounds, No organomegaly Ext:No significant edema Skin: No rashes, Integument intact Abnormal Lab Results 01/04/17 01/04/17 06:15 06:15 Plt Count 43 L D Hemoglobin A1c % 7.4 H D Current Medications Furosemide (Lasix Injection -) 40 mg IVPUSH BID@0600,1400 [facility] Last Admin: 01/05/17 05:58 Dose: 40 mg Gabapentin (Neurontin -) 100 mg PO BID [facility] Last Admin: 01/04/17 21:22 Dose: 100 mg Piperacillin Sod/Tazobactam Sod (Zosyn 2.25gm Ivpb (Pre-Docked)) 50 mls @ 100 mls/hr IVPB Q8H-IV JADEN PRN Reason: Protocol Last Admin: 01/05/17 01:13 Dose: 100 mls/hr Insulin Aspart (Novolog Vial Sliding Scale -) 1 vial SQ Q4HPO [facility] PRN Reason: Protocol Last Admin: 01/05/17 06:03 Dose: Not Given Insulin Detemir (Levemir Vial) 48 units SQ DAILY@0800 [facility] Last Admin: 01/04/17 12:37 Dose: 48 units Insulin Detemir (Levemir Vial) 30 units SQ HS [facility] Last Admin: 01/04/17 21:30 Dose: 30 units Lactulose (Cephulac (Oral Use)) 20 gm PO QID PRN PRN Reason: CONSTIPATION Last Admin: 01/03/17 13:51 Dose: 20 gm Methadone HCl (Dolophine -) 10 mg PO BID [facility] Last Admin: 01/05/17 08:22 Dose: 10 mg Metoprolol Tartrate (Lopressor -) 25 mg PO BID [facility] Last Admin: 01/05/17 08:22 Dose: 25 mg Pantoprazole Sodium (Protonix -) 40 mg PO DAILY [facility] Last Admin: 01/04/17 10:43 Dose: 40 mg Rifaximin (Xifaxan -) 550 mg PO BID [facility] Last Admin: 01/04/17 21:22 Dose: 550 mg Spironolactone (Aldactone -) 50 mg PO DAILY [facility] Last Admin: 01/05/17 08:22 Dose: 50 mg Zolpidem Tartrate (Ambien -) 5 mg PO HS PRN PRN Reason: INSOMNIAA/P Last Admin: 01/04/17 21:22 Dose: 5 mg A/P 56 y/o patient with cirrhosis/hep. c/ascites/thrombocytopenia/coagulopathy s/p pleurex catheter placement much more comfortable will need teaching on diurectics also dvt ---being monitores --to repeat duplex. not a candidtae for a/c
[2017-01-04] MEDS: ZOLPIDEM TARTRATE 5 MG TABLET PO PRN (21:22)
[2017-01-05] MEDS: INSULIN SLIDING SCALE (NOVOLOG) 1 VIAL SQ SCH ×5 (01:06→22:07)
[2017-01-05] MEDS: PIPERACILLIN/TAZOB 2.25 GM 50 ML IVPB SCH ×3 (01:13→18:41)
[2017-01-05] MEDS: FUROSEMIDE 40 MG/4 ML INJECTABLE VIAL IVPUSH SCH ×2 (05:58→14:21)
[2017-01-05] MEDS: METOPROLOL TARTRATE 25 MG TABLET (FP) PO SCH ×3 (08:22→22:07)
[2017-01-05] MEDS: SPIRONOLACTONE 25 MG TABLET (FP) PO SCH ×2 (08:22→10:24)
[2017-01-05] MEDS: METHADONE HCL 5 MG TABLET PO SCH ×3 (08:22→22:00)
[2017-01-05] MEDS: PANTOPRAZOLE 40 MG TABLET (FP) PO SCH (10:24)
[2017-01-05] MEDS: RIFAXIMIN 550 MG TABLET (UD) PO SCH ×2 (10:24→22:07)
[2017-01-05] MEDS: GABAPENTIN 100 MG CAPSULE (FP) PO SCH ×2 (10:24→22:07)
--- NOTE | 2017-01-05 11:02 | PN ---
Progress Note (short form) - Note Progress Note: PULMONARY Some shortness of breath. Pleur-x drained additional 2L today. Last Vital Signs Temp Pulse Resp BP Pulse Ox 98.2 F 63 16 117/68 97 01/05/17 14:27 01/05/17 14:27 01/05/17 14:27 01/05/17 14:27 01/04/17 21:00 Gen: NAD at rest Heart: RRR Lung: decreased breath sounds right base 3/4 way up Abd: softly distended, nontender Ext: + edema CBC, BMP 01/04/17 06:15 01/04/17 06:15 Active Medications Furosemide (Lasix Injection -) 40 mg IVPUSH BID@0600,1400 [facility] Last Admin: 01/05/17 14:21 Dose: 40 mg Gabapentin (Neurontin -) 100 mg PO BID [facility] Last Admin: 01/05/17 10:24 Dose: 100 mg Hydromorphone HCl (Dilaudid Injection -) 0.5 mg IVPB Q6H PRN PRN Reason: PAIN Last Admin: 01/05/17 12:51 Dose: 0.5 mg Piperacillin Sod/Tazobactam Sod (Zosyn 2.25gm Ivpb (Pre-Docked)) 50 mls @ 100 mls/hr IVPB Q8H-IV JADEN PRN Reason: Protocol Last Admin: 01/05/17 10:25 Dose: 100 mls/hr Insulin Aspart (Novolog Vial Sliding Scale -) 1 vial SQ ACHS JADEN PRN Reason: Protocol Insulin Detemir (Levemir Vial) 15 units SQ HS JADEN Insulin Detemir (Levemir Vial) 15 units SQ AM JADEN Lactulose (Cephulac (Oral Use)) 20 gm PO QID PRN PRN Reason: CONSTIPATION Last Admin: 01/05/17 14:22 Dose: 20 gm Methadone HCl (Dolophine -) 10 mg PO BID [facility] Last Admin: 01/05/17 10:24 Dose: Not Given Metoprolol Tartrate (Lopressor -) 25 mg PO BID [facility] Last Admin: 01/05/17 10:24 Dose: Not Given Pantoprazole Sodium (Protonix -) 40 mg PO DAILY [facility] Last Admin: 01/05/17 10:24 Dose: 40 mg Rifaximin (Xifaxan -) 550 mg PO BID [facility] Last Admin: 01/05/17 10:24 Dose: 550 mg Spironolactone (Aldactone -) 50 mg PO DAILY [facility] Last Admin: 01/05/17 10:24 Dose: Not Given Zolpidem Tartrate (Ambien -) 5 mg PO HS PRN PRN Reason: INSOMNIA Last Admin: 01/04/17 21:22 Dose: 5 mg A/P Liver Cirrhosis Ascites Pleural Effusion/Hepatic Hydrothorax s/p R pleur-x placement Hepatic Encephalopathy LLE DVT Thrombocytopenia Coagulopathy - continue lasix - titrate aldactone, if K and Cr stable on tomorrow's labs, increase aldactone dose to 100mg daily - ideally titrate diuretics to control accumulation of ascites/hydrothorax and minimize pleural drainage and avoid excessive protein/electrolyte losses - lactulose/rifaximin - monitor platelets, coags - DVT prophylaxis
[2017-01-05] MEDS ORDERED: HYDROmorphone HCL CARPU-JECT 1 MG/1 ML DISP.SYRIN IVPB PRN (12:23)
[2017-01-05] MEDS: INSULIN DETEMIR 100 UNITS/ML MDV SQ SCH ×2 (12:30→22:06)
[2017-01-05] MEDS: LACTULOSE 20 GM/30 ML UDC (FOR ORAL USE ONLY) PO PRN (14:22)
--- NOTE | 2017-01-05 19:26 | PN ---
Progress Note, Physician Chief Complaint: THIS PATIENT IS NEW TO ME MY FIRST MEDICAL ENCOUNTER WITH THIS PATIENT AWAKE ALERT FEELING BETTER CHART AND EVENTS REVIEWED BGM ELEVATED THEN FLUCTUATING DOWN - Current Medication List Current Medications: Active Medications Furosemide (Lasix Injection -) 40 mg IVPUSH BID@0600,1400 [facility] Last Admin: 01/05/17 14:21 Dose: 40 mg Gabapentin (Neurontin -) 100 mg PO BID [facility]AD[facility] Last Admin: 01/05/17 10:24 Dose: 100 mg Hydromorphone HCl (Dilaudid Injection -) 0.5 mg IVPB Q6H PRN PRN Reason: PAIN Last Admin: 01/05/17 12:51 Dose: 0.5 mg Piperacillin Sod/Tazobactam Sod (Zosyn 2.25gm Ivpb (Pre-Docked)) 50 mls @ 100 mls/hr IVPB Q8H-IV JADEN PRN Reason: Protocol Last Admin: 01/05/17 18:41 Dose: 100 mls/hr Insulin Aspart (Novolog Vial Sliding Scale -) 1 vial SQ ACHS JDAEN PRN Reason: Protocol Last Admin: 01/05/17 18:41 Dose: 8 units Insulin Detemir (Levemir Vial) 15 units SQ HS JADEN Insulin Detemir (Levemir Vial) 15 units SQ AM JADEN Lactulose (Cephulac (Oral Use)) 20 gm PO QID PRN PRN Reason: CONSTIPATION Last Admin: 01/05/17 14:22 Dose: 20 gm Methadone HCl (Dolophine -) 10 mg PO BID [facility] Last Admin: 01/05/17 10:24 Dose: Not Given Metoprolol Tartrate (Lopressor -) 25 mg PO BID [facility] Last Admin: 01/05/17 10:24 Dose: Not Given Pantoprazole Sodium (Protonix -) 40 mg PO DAILY [facility] Last Admin: 01/05/17 10:24 Dose: 40 mg Rifaximin (Xifaxan -) 550 mg PO BID [facility] Last Admin: 01/05/17 10:24 Dose: 550 mg Spironolactone (Aldactone -) 50 mg PO DAILY [facility] Last Admin: 01/05/17 10:24 Dose: Not Given Zolpidem Tartrate (Ambien -) 5 mg PO HS PRN PRN Reason: INSOMNIA Last Admin: 01/04/17 21:22 Dose: 5 mg - Objective Vital Signs: Vital Signs Temperature 98.2 F 01/05/17 14:27 Pulse Rate 63 01/05/17 14:27 Respiratory Rate 16 01/05/17 14:27 Blood Pressure 117/68 01/05/17 14:27 O2 Sat by Pulse Oximetry (%) 97 01/05/17 11:31 Constitutional: Yes: Mild Distress Eyes: Yes: WNL HENT: Yes: WNL Neck: Yes: WNL Cardiovascular: Yes: WNL Respiratory: Yes: SOB, Wheezes Gastrointestinal: Yes: Normal Bowel Sounds, Distention ...Rectal Exam: Yes: WNL Breast(s): Yes: WNL Musculoskeletal: Yes: WNL Extremities: Yes: WNL Edema: No Peripheral Pulses WNL: Yes Integumentary: Yes: WNL Wound/Incision: Yes: Clean/Dry Neurological: Yes: WNL ...Motor Strength: WNL Psychiatric: Yes: WNL Labs: CBC, BMP 01/04/17 06:15 01/04/17 06:15 INR, PTT INR 1.52 (0.82-1.09) H 01/03/17 06:15 Problem List - Problems (1) Atrial fibrillation with rapid ventricular response Code(s): I48.91 - UNSPECIFIED ATRIAL FIBRILLATION (2) Cirrhosis of liver Code(s): K74.60 - UNSPECIFIED CIRRHOSIS OF LIVER Qualifiers: Hepatic cirrhosis type: unspecified hepatic cirrhosis Ascites presence : with ascites Qualified Code(s): K74.60 - Unspecified cirrhosis of liver (3) Diabetes Code(s): E11.9 - TYPE 2 DIABETES MELLITUS WITHOUT COMPLICATIONS Qualifiers: Diabetes mellitus type: type 2 (4) Hyperglycemia Code(s): R73.9 - HYPERGLYCEMIA, UNSPECIFIED (5) IDDM (insulin dependent diabetes mellitus) Code(s): E11.9 - TYPE 2 DIABETES MELLITUS WITHOUT COMPLICATIONS 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
[2017-01-05] MEDS ORDERED: INSULIN DETEMIR 100 UNITS/ML MDV SQ SCH (22:00)
[2017-01-05] MEDS: ZOLPIDEM TARTRATE 5 MG TABLET PO PRN (22:11)
[2017-01-06] MEDS: PIPERACILLIN/TAZOB 2.25 GM 50 ML IVPB SCH ×4 (01:27→17:37)
[2017-01-06] MEDS: FUROSEMIDE 40 MG/4 ML INJECTABLE VIAL IVPUSH SCH ×3 (06:35→17:39)
[2017-01-06] MEDS: INSULIN SLIDING SCALE (NOVOLOG) 1 VIAL SQ SCH ×4 (06:40→23:23)
[2017-01-06] MEDS ORDERED: INSULIN DETEMIR 100 UNITS/ML MDV SQ SCH (07:00)
[2017-01-06 08:11] LABS: BASOPHIL 0.3 % (0-2.0); EOSINOPHIL 4.2 % (0-4.5); MCH 33.6 pg (25.7-33.7); MCHC 34.4 g/dl (32.0-35.9); MEAN CELL VOLUME 97.7 fl (80-96); MEAN PLT VOLUME 10.1 fl (7.5-11.1); NEUTROPHILS 66.6 % (42.8-82.8); PLATELET COUNT 54 K/MM3 (134-434); RDW 17.4 % (11.9-15.9); WHITE BLOOD COUNT 6.1 K/mm3 (4.0-10.0)
[2017-01-06 08:30] LABS: INR 1.47 (0.82-1.09); PROTHROMBIN TIME (PATIENT) 16.3 SEC (9.98-11.88)
[2017-01-06 08:31] LABS: ALBUMIN 2.4 g/dl (3.4-5.0); CREATININE 1.5 mg/dL (0.7-1.3)
[2017-01-06 08:33] LABS: BILIRUBIN,TOTAL 1.2 mg/dL (0.2-1.0); TOT PROT 8.1 g/dl (6.4-8.2)
[2017-01-06] MEDS: METHADONE HCL 5 MG TABLET PO SCH ×2 (09:19→22:17)
[2017-01-06] MEDS: GABAPENTIN 100 MG CAPSULE (FP) PO SCH ×2 (09:19→22:17)
[2017-01-06] MEDS: RIFAXIMIN 550 MG TABLET (UD) PO SCH ×2 (09:20→22:17)
[2017-01-06] MEDS: LACTULOSE 20 GM/30 ML UDC (FOR ORAL USE ONLY) PO PRN (09:20)
[2017-01-06] MEDS: METOPROLOL TARTRATE 25 MG TABLET (FP) PO SCH ×2 (09:20→22:17)
[2017-01-06] MEDS: PANTOPRAZOLE 40 MG TABLET (FP) PO SCH (09:20)
[2017-01-06] MEDS: SPIRONOLACTONE 25 MG TABLET (FP) PO SCH (09:20)
--- NOTE | 2017-01-06 10:00 | PN ---
Progress Note, Physician History of Present Illness: LEG PAIN MORE COMFORTABLE - Current Medication List Current Medications: Active Medications Furosemide (Lasix Injection -) 40 mg IVPUSH BID@0600,1400 [facility] Last Admin: 01/06/17 06:35 Dose: 40 mg Gabapentin (Neurontin -) 100 mg PO BID [facility] Last Admin: 01/06/17 09:19 Dose: 100 mg Hydromorphone HCl (Dilaudid Injection -) 0.5 mg IVPB Q6H PRN PRN Reason: PAIN Last Admin: 01/05/17 12:51 Dose: 0.5 mg Piperacillin Sod/Tazobactam Sod (Zosyn 2.25gm Ivpb (Pre-Docked)) 50 mls @ 100 mls/hr IVPB Q8H-IV JADEN PRN Reason: Protocol Last Admin: 01/06/17 09:19 Dose: 100 mls/hr Insulin Aspart (Novolog Vial Sliding Scale -) 1 vial SQ ACHS JADEN PRN Reason: Protocol Last Admin: 01/06/17 06:40 Dose: 4 units Insulin Detemir (Levemir Vial) 15 units SQ AM [facility]ADEN Last Admin: 01/06/17 06:40 Dose: 15 unit Insulin Detemir (Levemir Vial) 10 units SQ HS [facility] Last Admin: 01/05/17 22:06 Dose: 10 unit Lactulose (Cephulac (Oral Use)) 20 gm PO QID PRN PRN Reason: CONSTIPATION Last Admin: 01/06/17 09:20 Dose: 20 gm Methadone HCl (Dolophine -) 10 mg PO BID [facility] Last Admin: 01/06/17 09:19 Dose: 10 mg Metoprolol Tartrate (Lopressor -) 25 mg PO BID [facility] Last Admin: 01/06/17 09:20 Dose: 25 mg Pantoprazole Sodium (Protonix -) 40 mg PO DAILY [facility] Last Admin: 01/06/17 09:20 Dose: 40 mg Rifaximin (Xifaxan -) 550 mg PO BID [facility] Last Admin: 01/06/17 09:20 Dose: 550 mg Spironolactone (Aldactone -) 50 mg PO DAILY [facility] Last Admin: 01/06/17 09:20 Dose: 50 mg Zolpidem Tartrate (Ambien -) 5 mg PO HS PRN PRN Reason: INSOMNIA Last Admin: 01/05/17 22:11 Dose: 5 mg - Objective Vital Signs: Vital Signs Temperature 98.3 F 01/06/17 06:00 Pulse Rate 71 01/06/17 06:00 Respiratory Rate 20 01/06/17 06:00 Blood Pressure 113/71 01/06/17 06:00 O2 Sat by Pulse Oximetry (%) 97 01/05/17 21:00 Cardiovascular: Yes: S1, S2 Respiratory: Yes: Regular, CTA Bilaterally, Diminished Gastrointestinal: Yes: Normal Bowel Sounds, Soft Labs: CBC, BMP 01/06/17 06:10 01/06/17 06:10 INR, PTT INR 1.47 (0.82-1.09) H 01/06/17 06:10 Assessment/Plan - Problems (1) DVT (deep venous thrombosis) Assessment/Plan: seen by vascular sx plan is to repeat doppler today to see if dvt is extending or not as patient is risk for bleeding given coagulopathy and thrombocytopenia Code(s): I82.409 - ACUTE EMBOLISM AND THOMBOS UNSP DEEP VN UNSP LOWER EXTREMITY Qualifiers: DVT location: lower extremity Affected thrombotic vein of extremity: femoral Laterality: left Chronicity: acute Qualified Code(s): I82.412 - Acute embolism and thrombosis of left femoral vein (2) Tachypnea Assessment/Plan: pleurex cath- 1500ml cc drained on 01/01 to get drained today and then repeat cxr. Code(s): R06.82 - TACHYPNEA, NOT ELSEWHERE CLASSIFIED (3) Fall Assessment/Plan: does not want to go for rehab ambulating with cane Code(s): W19.XXXA - UNSPECIFIED FALL, INITIAL ENCOUNTER Qualifiers: Encounter type: initial encounter Qualified Code(s): W19.XXXA - Unspecified fall, initial encounter (4) Cirrhosis of liver Assessment/Plan: lactulose rifaximin Code(s): K74.60 - UNSPECIFIED CIRRHOSIS OF LIVER Qualifiers: Hepatic cirrhosis type: unspecified hepatic cirrhosis Ascites presence : with ascites Qualified Code(s): K74.60 - Unspecified cirrhosis of liver (5) Hepatic encephalopathy Assessment/Plan: lactulose trend ammonia Code(s): K72.90 - HEPATIC FAILURE, UNSPECIFIED WITHOUT COMA (6) Sedative dependence Assessment/Plan: methaodone 15mg Code(s): F13.20 - SEDATIVE, HYPNOTIC OR ANXIOLYTIC DEPENDENCE, UNCOMPLICATED (7) Ascites Assessment/Plan: s/p pleurex cath to get drained again today Code(s): R18.8 - OTHER ASCITES Qualifiers: Ascites type: due to alcoholic cirrhosis Qualified Code(s): K70.31 - Alcoholic cirrhosis of liver with ascites (8) Edema Assessment/Plan: postive DVT in left leg- appreciate vascular eval ivc filter in place since 1998>? Code(s): R60.9 - EDEMA, UNSPECIFIED Qualifiers: Edema type: unspecified Qualified Code(s): R60.9 - Edema, unspecified (9) Hydrothorax Assessment/Plan: to get drained again today by IR s/p pleurex cath on lasix as well Code(s): J94.8 - OTHER SPECIFIED PLEURAL CONDITIONS (10) Thrombocytopenia Assessment/Plan: s/p platelet transfusion on 3/10 sec to hyperspleenism,cirrhosis Code(s): D69.6 - THROMBOCYTOPENIA, UNSPECIFIED (11) Diabetes Assessment/Plan: BGM sliding scalre hga1c levemir Code(s): E11.9 - TYPE 2 DIABETES MELLITUS WITHOUT COMPLICATIONS Qualifiers: Diabetes mellitus type: type 2
[2017-01-06] MEDS: oxyCODONE HCL 5 MG TABLET PO PRN ×2 (10:21→17:38)
--- NOTE | 2017-01-06 10:40 | PN ---
Progress Note (short form) - Note Progress Note: PULMONARY Ambulating with PT in hallway VSS ANICTERIC RIGHT PLEUREX CATHETER/DIMINISHED BREATH SOUNDS S1S2 SOFT/ASCITES LESS EDEMA LABS/MEDS/IMAGING NOTED HEPATIC HYDROTHORAX S/P PLACEMENT RIGHT PLEUREX INITIATE INTERMITTENT DRAINAGE BASED ON SYMPTOMS AND RADIOGRAPH FINDINGS IMPROVED RADIOGRAPH R GREG OLIVER Problem List - Problems (1) Cirrhosis of liver Code(s): K74.60 - UNSPECIFIED CIRRHOSIS OF LIVER Qualifiers: Hepatic cirrhosis type: unspecified hepatic cirrhosis Ascites presence : with ascites Qualified Code(s): K74.60 - Unspecified cirrhosis of liver (2) Portal hypertension Code(s): K76.6 - PORTAL HYPERTENSION (3) Radiculopathy Code(s): M54.10 - RADICULOPATHY, SITE UNSPECIFIED (4) Pleural effusion due to another disorder Code(s): J90 - PLEURAL EFFUSION, NOT ELSEWHERE CLASSIFIED
--- NOTE | 2017-01-06 15:12 | PATH ---
Cytology Non-Gynecological Report Patient Name: ELEAZAR LLANES Med. Rec. #: [id number] /Age/Gender: 1960 (Age: 56) / M Account: [id number] Location: [facility] MED/SURG Taken: 01/01/2017 Received: 01/04/2017 Reported: 01/06/2017 Physicians: Bernard Mehta M.D. Specimen(s) Received A: RIGHT PLEURAL FLUID IN 50% ALCOHOL B: RIGHT PLEURAL FLUID FRESH Clinical History Pleural effusion Final Diagnosis A,B. PLEURAL FLUID, RIGHT, THORACENTESIS: SATISFACTORY FOR EVALUATION. REACTIVE MESOTHELIAL CELLS, HISTIOCYTES AND MIXED LYMPHOCYTES (SEE COMMENT). Comment: History of low-grade lymphoma is noted. The lymphocytes in the effusion appear heterogenous. If there is a clinical concern for pleural involvement by low grade lymphoproliferative disorder submitting a fresh specimen for flow cytometry may be beneficial. Electronically Signed Avi Salinas M.D. Gross Description A. Received is a 50 cc of prashanth fluid in 50% alcohol. One cytofunnel slide and one cell block are made. B. Received is 1000 cc of prashanth fluid fresh. One cytofunnel slide and one cell block are made.
[2017-01-06] MEDS: ZOLPIDEM TARTRATE 5 MG TABLET PO PRN (22:42)
[2017-01-06] MEDS: INSULIN DETEMIR 100 UNITS/ML MDV SQ SCH (23:22)
--- NOTE | 2017-01-07 00:25 | PN ---
Progress Note (short form) - Note Progress Note: Current Active Problems Atrial fibrillation with rapid ventricular response (Acute) Cirrhosis of liver (Acute) DVT (deep venous thrombosis) (Acute) Diabetes (Acute) Hepatic encephalopathy (Acute) Hyperglycemia (Acute) IDDM (insulin dependent diabetes mellitus) (Acute) Pleural effusion due to another disorder (Acute) Portal hypertension (Acute) Radiculopathy (Acute) Right inguinal hernia (Acute) Tachypnea (Acute) Type 2 diabetes mellitus with other diabetic neurological complication (Acute) Laboratory Results - last 24 hr 01/06/17 01/06/17 01/06/17 02:22 06:10 06:10 WBC 6.1 RBC 3.49 L Hgb 11.7 D Hct 34.1 L D MCV 97.7 H MCHC 34.4 RDW 17.4 H Plt Count 54 L D MPV 10.1 Neutrophils % 66.6 Lymphocytes % 17.6 D Monocytes % 11.3 H Eosinophils % 4.2 D Basophils % 0.3 INR 1.47 H Sodium Potassium Chloride Carbon Dioxide Anion Gap BUN Creatinine Creat Clearance w eGFR POC Glucometer 247 Random Glucose Calcium Total Bilirubin AST ALT Alkaline Phosphatase Total Protein Albumin 01/06/17 01/06/17 01/06/17 06:10 06:33 17:33 WBC RBC Hgb Hct MCV MCHC RDW Plt Count MPV Neutrophils % Lymphocytes % Monocytes % Eosinophils % Basophils % INR Sodium 137 Potassium 4.0 Chloride 99 Carbon Dioxide 32 Anion Gap 6 L BUN 43 H Creatinine 1.5 H Creat Clearance w eGFR 48.41 POC Glucometer 185 449 Random Glucose 222 H D Calcium 8.0 L Total Bilirubin 1.2 H D AST 42 H ALT 36 Alkaline Phosphatase 205 H D Total Protein 8.1 Albumin 2.4 L 01/06/17 23:21 WBC RBC Hgb Hct MCV MCHC RDW Plt Count MPV Neutrophils % Lymphocytes % Monocytes % Eosinophils % Basophils % INR Sodium Potassium Chloride Carbon Dioxide Anion Gap BUN Creatinine Creat Clearance w eGFR POC Glucometer 376 Random Glucose Calcium Total Bilirubin AST ALT Alkaline Phosphatase Total Protein Albumin Current Medications Generic Name Dose Route Start Last Admin Trade Name Freq PRN Reason Stop Dose Admin Furosemide 40 mg 12/31/16 14:00 01/06/17 13:55 Lasix Injection - IVPUSH Not Given BID@0600,1400 JADEN Gabapentin 100 mg 12/31/16 22:00 01/06/17 22:17 Neurontin - PO 100 mg BID JADEN Administration Piperacillin Sod/Tazobactam Sod 50 mls @ 100 mls/hr 01/02/17 18:00 01/06/17 17: 37 Zosyn 2.25gm Ivpb (Pre-Docked) IVPB 100 mls/hr Q8H-IV JADEN Administration Protocol Insulin Aspart 1 vial 01/05/17 16:30 01/06/17 23:23 Novolog Vial Sliding Scale - SQ 12 units ACHS JADEN Administration Protocol Insulin Detemir 10 units 01/05/17 22:00 01/06/17 23:22 Levemir Vial SQ 10 unit HS JADEN Administration Insulin Detemir 25 units 01/07/17 00:23 Levemir Vial SQ AM JADEN Lactulose 20 gm 01/03/17 13:21 01/06/17 09:20 Cephulac (Oral Use) PO 20 gm QID PRN Administration CONSTIPATION Methadone HCl 10 mg 01/02/17 22:00 01/06/17 22:17 Dolophine - PO 10 mg BID JADEN Administration Metoprolol Tartrate 25 mg 01/03/17 22:00 01/06/17 22:17 Lopressor - PO 25 mg BID JADEN Administration Oxycodone HCl 10 mg 01/06/17 10:01 01/06/17 17:38 Roxicodone - PO 10 mg Q4H PRN Administration PAIN Pantoprazole Sodium 40 mg 01/01/17 10:00 01/06/17 09:20 Protonix - PO 40 mg DAILY JADEN Administration Rifaximin 550 mg 12/31/16 22:00 01/06/17 22:17 Xifaxan - PO 550 mg BID JADEN Administration Spironolactone 100 mg 01/06/17 10:01 Aldactone - PO DAILY JADEN Zolpidem Tartrate 5 mg 01/03/17 13:51 01/06/17 22:42 Ambien - PO 5 mg HS PRN Administration INSOMNIA plan: increase levemir 25 units am levemir 10 units hs to avoid hypoglycemia Problem List - Problems (1) Atrial fibrillation with rapid ventricular response Code(s): I48.91 - UNSPECIFIED ATRIAL FIBRILLATION (2) Cirrhosis of liver Code(s): K74.60 - UNSPECIFIED CIRRHOSIS OF LIVER Qualifiers: Hepatic cirrhosis type: unspecified hepatic cirrhosis Ascites presence : with ascites Qualified Code(s): K74.60 - Unspecified cirrhosis of liver (3) DVT (deep venous thrombosis) Code(s): I82.409 - ACUTE EMBOLISM AND THOMBOS UNSP DEEP VN UNSP LOWER EXTREMITY Qualifiers: DVT location: lower extremity Affected thrombotic vein of extremity: femoral Laterality: left Chronicity: acute Qualified Code(s): I82.412 - Acute embolism and thrombosis of left femoral vein (4) Hyperglycemia Code(s): R73.9 - HYPERGLYCEMIA, UNSPECIFIED (5) IDDM (insulin dependent diabetes mellitus) Code(s): E11.9 - TYPE 2 DIABETES MELLITUS WITHOUT COMPLICATIONS Z79.4 - CUSTODIAL (CURRENT) USE OF INSULIN
[2017-01-07] MEDS: PIPERACILLIN/TAZOB 2.25 GM 50 ML IVPB SCH (01:59)
[2017-01-07] MEDS: oxyCODONE HCL 5 MG TABLET PO PRN ×3 (04:00→20:43)
[2017-01-07] MEDS: FUROSEMIDE 40 MG/4 ML INJECTABLE VIAL IVPUSH SCH (07:09)
[2017-01-07] MEDS: INSULIN DETEMIR 100 UNITS/ML MDV SQ SCH ×2 (07:11→22:07)
[2017-01-07] MEDS: INSULIN SLIDING SCALE (NOVOLOG) 1 VIAL SQ SCH ×4 (07:11→22:08)
[2017-01-07 08:02] LABS: INR 1.42 (0.82-1.09); PROTHROMBIN TIME (PATIENT) 15.7 SEC (9.98-11.88)
[2017-01-07 08:05] LABS: ACTIVATED PTT 31.9 SECONDS (26.9-34.4)
--- NOTE | 2017-01-07 08:46 | DS ---
Physical Examination Vital Signs: Vital Signs Temperature 97 F L 01/07/17 06:33 Pulse Rate 61 01/07/17 06:33 Respiratory Rate 22 01/07/17 06:33 Blood Pressure 139/68 01/07/17 06:33 O2 Sat by Pulse Oximetry (%) 97 01/06/17 21:00 Cardiovascular: Yes: S1, S2 Respiratory: Yes: Regular, CTA Bilaterally, Diminished Gastrointestinal: Yes: Normal Bowel Sounds, Soft, Ascites, Distention Labs: CBC, BMP 01/06/17 06:10 01/06/17 06:10 Discharge Summary Reason For Visit: ENCEPHALOPATHY DUR TO METABOLIC FACTOR OR TOXIN Current Active Problems Atrial fibrillation with rapid ventricular response (Acute) Cirrhosis of liver (Acute) DVT (deep venous thrombosis) (Acute) Diabetes (Acute) Hepatic encephalopathy (Acute) Hyperglycemia (Acute) IDDM (insulin dependent diabetes mellitus) (Acute) Pleural effusion due to another disorder (Acute) Portal hypertension (Acute) Radiculopathy (Acute) Right inguinal hernia (Acute) Tachypnea (Acute) Type 2 diabetes mellitus with other diabetic neurological complication (Acute) Hospital Course: The patient is a 57 year old male with a past medical hx of HTN, hyperlipidemia , coronary artery disease, type 2 diabetes (on insulin), end stage liver disease (secondary to hepatitis C), hx of hepatic encephalopathy, and lymphoma who presents to the ED via EMS for evaluation of an unwitnessed fall this morning. Per EMS, the patient was found by his neighbor on the floor of his home and called EMS. The patient notes he was in his house this morning when he lost his balance and fell onto the floor. He states he then called his neighbor. He denies hitting his head and loss of consciousness. He states he ate breakfast this morning, which consisted of eggs, corn, orange juice, and iced tea. The patient reports he usually checks his blood sugar levels every day , but did not check his levels this morning. The patient notes he was in his usual state of health up until this morning and denies any recent illnesses. per patient he says he says he cannot move his legs especially his right leg more than left leg that well and thus he fell - Problems (1) DVT (deep venous thrombosis) Assessment/Plan: seen by vascular sx plan is to repeat doppler today to see if dvt is extending or not as patient is risk for bleeding given coagulopathy and thrombocytopenia Code(s): I82.409 - ACUTE EMBOLISM AND THOMBOS UNSP DEEP VN UNSP LOWER EXTREMITY Qualifiers: DVT location: lower extremity Affected thrombotic vein of extremity: femoral Laterality: left Chronicity: acute Qualified Code(s): I82.412 - Acute embolism and thrombosis of left femoral vein (2) Tachypnea Assessment/Plan: pleurex cath- 1500ml cc drained on 01/01 to get drained today and then repeat cxr. Code(s): R06.82 - TACHYPNEA, NOT ELSEWHERE CLASSIFIED (3) Fall Assessment/Plan: does not want to go for rehab ambulating with cane Code(s): W19.XXXA - UNSPECIFIED FALL, INITIAL ENCOUNTER Qualifiers: Encounter type: initial encounter Qualified Code(s): W19.XXXA - Unspecified fall, initial encounter (4) Cirrhosis of liver Assessment/Plan: lactulose rifaximin Code(s): K74.60 - UNSPECIFIED CIRRHOSIS OF LIVER Qualifiers: Hepatic cirrhosis type: unspecified hepatic cirrhosis Ascites presence : with ascites Qualified Code(s): K74.60 - Unspecified cirrhosis of liver (5) Hepatic encephalopathy Assessment/Plan: lactulose trend ammonia Code(s): K72.90 - HEPATIC FAILURE, UNSPECIFIED WITHOUT COMA (6) Sedative dependence Assessment/Plan: methaodone 15mg Code(s): F13.20 - SEDATIVE, HYPNOTIC OR ANXIOLYTIC DEPENDENCE, UNCOMPLICATED (7) Ascites Assessment/Plan: s/p pleurex cath to get drained again today Code(s): R18.8 - OTHER ASCITES Qualifiers: Ascites type: due to alcoholic cirrhosis Qualified Code(s): K70.31 - Alcoholic cirrhosis of liver with ascites (8) Edema Assessment/Plan: postive DVT in left leg- appreciate vascular eval ivc filter in place since 1998>? 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,cirrhosis Code(s): D69.6 - THROMBOCYTOPENIA, UNSPECIFIED (11) Diabetes Assessment/Plan: BGM sliding scalre hga1c levemir Code(s): E11.9 - TYPE 2 DIABETES MELLITUS WITHOUT COMPLICATIONS Qualifiers: Diabetes mellitus type: type 2 Condition: Improved - Instructions Referrals: Jag Thompson MD [Primary Care Provider] - 1 Week Disposition: VNS/HOME HEALTH CARE - Home Medications Comprehensive Discharge Medication List: Ambulatory Orders Albuterol 2.5/Ipratropium 0.5 [Duoneb -] 1 amp NEB Q6H PRN #120 amp 10/25/16 Methadone [Dolophine -] 10 mg PO DAILY 11/05/16 Rifaximin [Xifaxan -] 550 mg PO BID #20 tablet 12/31/16 Furosemide [Lasix -] 60 mg PO DAILY #90 tablet 01/07/17 Gabapentin [Neurontin -] 100 mg PO BID #60 capsule 01/07/17 Insulin (Levemir) [Levemir Vial] 15 units SQ HS ml 01/07/17 Insulin (Levemir) [Levemir Vial] 25 units SQ AM ml 01/07/17 Lactulose (Oral Use) [Cephulac -] 20 gm PO QID #2400 gr 01/07/17 Metoprolol Tartrate [Lopressor -] 25 mg PO BID #60 tablet 01/07/17 Pantoprazole Sodium [Protonix -] 40 mg PO DAILY #30 tablet.ec 01/07/17 Rifaximin [Xifaxan -] 550 mg PO BID #60 tablet 01/07/17
[2017-01-07 08:51] LABS: BASOPHIL 0.3 % (0-2.0); EOSINOPHIL 4.7 % (0-4.5); MCH 33.5 pg (25.7-33.7); MCHC 34.3 g/dl (32.0-35.9); MEAN CELL VOLUME 97.8 fl (80-96); MEAN PLT VOLUME 10.5 fl (7.5-11.1); NEUTROPHILS 69.9 % (42.8-82.8); PLATELET COUNT 47 K/MM3 (134-434); WHITE BLOOD COUNT 5.8 K/mm3 (4.0-10.0)
[2017-01-07 09:05] LABS: ALBUMIN 2.2 g/dl (3.4-5.0); BILIRUBIN,TOTAL 1.2 mg/dL (0.2-1.0); CALCIUM 7.9 mg/dL (8.5-10.1); CREATININE 1.4 mg/dL (0.7-1.3); TOT PROT 7.6 g/dl (6.4-8.2)
[2017-01-07] MEDS: FUROSEMIDE 20 MG TABLET (FP) PO SCH (09:37)
[2017-01-07] MEDS: SPIRONOLACTONE 25 MG TABLET (FP) PO SCH (09:37)
[2017-01-07] MEDS: METHADONE HCL 5 MG TABLET PO SCH ×2 (09:37→22:06)
[2017-01-07] MEDS: LACTULOSE 20 GM/30 ML UDC (FOR ORAL USE ONLY) PO SCH ×4 (09:37→22:06)
[2017-01-07] MEDS: GABAPENTIN 100 MG CAPSULE (FP) PO SCH ×2 (09:38→22:07)
[2017-01-07] MEDS: PANTOPRAZOLE 40 MG TABLET (FP) PO SCH (09:38)
[2017-01-07] MEDS: METOPROLOL TARTRATE 25 MG TABLET (FP) PO SCH ×2 (09:38→22:06)
[2017-01-07] MEDS: RIFAXIMIN 550 MG TABLET (UD) PO SCH ×2 (09:38→22:07)
--- NOTE | 2017-01-07 10:09 | PN ---
Progress Note (short form) - Note Progress Note: PULMONARY Denies shortness of breath or chest pain. Last Vital Signs Temp Pulse Resp BP Pulse Ox 97 F L 61 22 139/68 97 01/07/17 06:33 01/07/17 06:33 01/07/17 06:33 01/07/17 06:33 01/06/17 21:00 Gen: NAD at rest Heart: RRR Lung: decreased breath sounds right base 3/4 way up Abd: softly distended, nontender Ext: + edema improving CBC, BMP 01/07/17 08:47 01/07/17 08:47 Active Medications Furosemide (Lasix -) 60 mg PO DAILY [facility] Last Admin: 01/07/17 09:37 Dose: 60 mg Gabapentin (Neurontin -) 100 mg PO BID [facility] Last Admin: 01/07/17 09:38 Dose: 100 mg Insulin Aspart (Novolog Vial Sliding Scale -) 1 vial SQ ACHS [facility] PRN Reason: Protocol Last Admin: 01/07/17 07:11 Dose: 10 units Insulin Detemir (Levemir Vial) 10 units SQ HS [facility] Last Admin: 01/06/17 23:22 Dose: 10 unit Insulin Detemir (Levemir Vial) 25 units SQ AM [facility] Last Admin: 01/07/17 07:11 Dose: 25 units Lactulose (Cephulac (Oral Use)) 20 gm PO QID [facility] Last Admin: 01/07/17 09:37 Dose: 20 gm Methadone HCl (Dolophine -) 10 mg PO BID [facility] Last Admin: 01/07/17 09:37 Dose: 10 mg Metoprolol Tartrate (Lopressor -) 25 mg PO BID [facility] Last Admin: 01/07/17 09:38 Dose: 25 mg Oxycodone HCl (Roxicodone -) 10 mg PO Q4H PRN PRN Reason: PAIN Last Admin: 01/07/17 04:00 Dose: 10 mg Pantoprazole Sodium (Protonix -) 40 mg PO DAILY [facility] Last Admin: 01/07/17 09:38 Dose: 40 mg Rifaximin (Xifaxan -) 550 mg PO BID [facility] Last Admin: 01/07/17 09:38 Dose: 550 mg Spironolactone (Aldactone -) 100 mg PO DAILY [facility] Last Admin: 01/07/17 09:37 Dose: 100 mg Zolpidem Tartrate (Ambien -) 5 mg PO HS PRN PRN Reason: INSOMNIA Last Admin: 01/06/17 22:42 Dose: 5 mg A/P Liver Cirrhosis Ascites Pleural Effusion/Hepatic Hydrothorax s/p R pleur-x placement Hepatic Encephalopathy LLE DVT Thrombocytopenia Coagulopathy - continue lasix, aldactone - ideally titrate diuretics to control accumulation of ascites/hydrothorax and minimize pleural drainage and avoid excessive protein/electrolyte losses - aldactone can be titrated higher to goal of 100mg BID as outpt, monitor Cr and K - lactulose/rifaximin - monitor platelets, coags - DVT prophylaxis
--- NOTE | 2017-01-07 11:01 | PN ---
Progress Note (short form) - Note Progress Note: Vascular Surgery Patient discussed with Dr. Gallagher and IR Patient had CT abdomen/pelvis 12/09/16, report showing IVC filter in place No further vascular surgery intervention
--- NOTE | 2017-01-07 21:44 | PN ---
Progress Note (short form) - Note Progress Note: Patient seen and examined SOB is much improved Last Vital Signs Temp Pulse Resp BP Pulse Ox 98.5 F 60 20 119/70 100 01/07/17 18:22 01/07/17 18:22 01/07/17 18:22 01/07/17 18:22 01/07/17 11:27 Cor: RSR, No murmurs, No gallops Lungs: decreased at bases Abd: Soft, Normal bowel sounds, No organomegaly Ext:No significant edema Skin: No rashes, Integument intact Abnormal Lab Results 01/07/17 01/07/17 01/07/17 06:20 08:47 08:47 RBC 3.33 L Hgb 11.2 L Hct 32.6 L MCV 97.8 H RDW 17.0 H Plt Count 47 L Monocytes % 11.3 H Eosinophils % 4.7 H INR 1.42 H Fibrinogen 134.0 L D BUN 43 H Creatinine 1.4 H Random Glucose 311 H* D Calcium 7.9 L Total Bilirubin 1.2 H AST 40 H Alkaline Phosphatase 196 H Albumin 2.2 L Current Medications Furosemide (Lasix -) 60 mg PO DAILY [facility] Last Admin: 01/07/17 09:37 Dose: 60 mg Gabapentin (Neurontin -) 100 mg PO BID [facility] Last Admin: 01/07/17 09:38 Dose: 100 mg Insulin Aspart (Novolog Vial Sliding Scale -) 1 vial SQ ACHS [facility] PRN Reason: Protocol Last Admin: 01/07/17 18:21 Dose: Not Given Insulin Detemir (Levemir Vial) 10 units SQ HS [facility] Last Admin: 01/06/17 23:22 Dose: 10 unit Insulin Detemir (Levemir Vial) 25 units SQ AM [facility] Last Admin: 01/07/17 07:11 Dose: 25 units Lactulose (Cephulac (Oral Use)) 20 gm PO QID [facility] Last Admin: 01/07/17 17:21 Dose: 20 gm Methadone HCl (Dolophine -) 10 mg PO BID [facility] Last Admin: 01/07/17 09:37 Dose: 10 mg Metoprolol Tartrate (Lopressor -) 25 mg PO BID [facility] Last Admin: 01/07/17 09:38 Dose: 25 mg Oxycodone HCl (Roxicodone -) 10 mg PO Q4H PRN PRN Reason: PAIN Last Admin: 01/07/17 20:43 Dose: 10 mg Pantoprazole Sodium (Protonix -) 40 mg PO DAILY [facility] Last Admin: 01/07/17 09:38 Dose: 40 mg Rifaximin (Xifaxan -) 550 mg PO BID [facility] Last Admin: 01/07/17 09:38 Dose: 550 mg Spironolactone (Aldactone -) 100 mg PO DAILY [facility] Last Admin: 01/07/17 09:37 Dose: 100 mg Zolpidem Tartrate (Ambien -) 5 mg PO HS PRN PRN Reason: INSOMNIA Last Admin: 01/06/17 22:42 Dose: 5 mg A/P 56 y/o patient with cirrhosis/hep. c/ascites/thrombocytopenia/coagulopathy s/p pleurex catheter placement much more comfortable on diurectics also dvt --- repeat duplex persistent not a candidate for a/c IR consult for ? ivc filter. consult put in will discuss withprimaary team will discuss with patients daughter
[2017-01-07] MEDS: ZOLPIDEM TARTRATE 5 MG TABLET PO PRN (22:06)
[2017-01-08] MEDS: oxyCODONE HCL 5 MG TABLET PO PRN ×4 (04:35→20:46)
[2017-01-08] MEDS: INSULIN DETEMIR 100 UNITS/ML MDV SQ SCH ×2 (06:27→21:48)
[2017-01-08] MEDS: INSULIN SLIDING SCALE (NOVOLOG) 1 VIAL SQ SCH ×4 (06:29→21:49)
[2017-01-08 08:19] LABS: BASOPHIL 0.5 % (0-2.0); EOSINOPHIL 5.2 % (0-4.5); MCH 33.7 pg (25.7-33.7); MCHC 34.6 g/dl (32.0-35.9); MEAN CELL VOLUME 97.5 fl (80-96); MEAN PLT VOLUME 10.2 fl (7.5-11.1); NEUTROPHILS 63.7 % (42.8-82.8); PLATELET COUNT 44 K/MM3 (134-434); RDW 16.9 % (11.9-15.9); WHITE BLOOD COUNT 5.3 K/mm3 (4.0-10.0)
[2017-01-08 08:32] LABS: ACTIVATED PTT 32.1 SECONDS (26.9-34.4); INR 1.4 (0.82-1.09); PROTHROMBIN TIME (PATIENT) 15.5 SEC (9.98-11.88)
--- NOTE | 2017-01-08 08:50 | DS ---
Physical Examination Vital Signs: Vital Signs Temperature 97.8 F 01/08/17 05:57 Pulse Rate 60 01/08/17 05:57 Respiratory Rate 20 01/08/17 05:57 Blood Pressure 109/66 01/08/17 05:57 O2 Sat by Pulse Oximetry (%) 97 01/07/17 21:00 Findings/Remarks: COMFORTABLE NO COMPLAINTS Cardiovascular: Yes: Regular Rate and Rhythm Respiratory: Yes: Regular, CTA Bilaterally, Diminished Gastrointestinal: Yes: Normal Bowel Sounds, Soft Edema: Yes Labs: CBC, BMP 01/08/17 06:15 Discharge Summary Reason For Visit: ENCEPHALOPATHY DUR TO METABOLIC FACTOR OR TOXIN Current Active Problems Atrial fibrillation with rapid ventricular response (Acute) Cirrhosis of liver (Acute) DVT (deep venous thrombosis) (Acute) Diabetes (Acute) Hepatic encephalopathy (Acute) Hyperglycemia (Acute) IDDM (insulin dependent diabetes mellitus) (Acute) Pleural effusion due to another disorder (Acute) Portal hypertension (Acute) Radiculopathy (Acute) Right inguinal hernia (Acute) Tachypnea (Acute) Type 2 diabetes mellitus with other diabetic neurological complication (Acute) Hospital Course: The patient is a 57 year old male with a past medical hx of HTN, hyperlipidemia , coronary artery disease, type 2 diabetes (on insulin), end stage liver disease (secondary to hepatitis C), hx of hepatic encephalopathy, and lymphoma who presents to the ED via EMS for evaluation of an unwitnessed fall this morning. Per EMS, the patient was found by his neighbor on the floor of his home and called EMS. The patient notes he was in his house this morning when he lost his balance and fell onto the floor. He states he then called his neighbor. He denies hitting his head and loss of consciousness. He states he ate breakfast this morning, which consisted of eggs, corn, orange juice, and iced tea. The patient reports he usually checks his blood sugar levels every day , but did not check his levels this morning. The patient notes he was in his usual state of health up until this morning and denies any recent illnesses. per patient he says he says he cannot move his legs especially his right leg more than left leg that well and thus he fell - Problems (1) DVT (deep venous thrombosis) Assessment/Plan: seen by vascular sx plan is to repeat doppler today to see if dvt is extending or not as patient is risk for bleeding given coagulopathy and thrombocytopenia Code(s): I82.409 - ACUTE EMBOLISM AND THOMBOS UNSP DEEP VN UNSP LOWER EXTREMITY Qualifiers: DVT location: lower extremity Affected thrombotic vein of extremity: femoral Laterality: left Chronicity: acute Qualified Code(s): I82.412 - Acute embolism and thrombosis of left femoral vein (2) Tachypnea Assessment/Plan: pleurex cath- 1500ml cc drained on 01/01 to get drained today and then repeat cxr. Code(s): R06.82 - TACHYPNEA, NOT ELSEWHERE CLASSIFIED (3) Fall Assessment/Plan: does not want to go for rehab ambulating with cane Code(s): W19.XXXA - UNSPECIFIED FALL, INITIAL ENCOUNTER Qualifiers: Encounter type: initial encounter Qualified Code(s): W19.XXXA - Unspecified fall, initial encounter (4) Cirrhosis of liver Assessment/Plan: lactulose rifaximin Code(s): K74.60 - UNSPECIFIED CIRRHOSIS OF LIVER Qualifiers: Hepatic cirrhosis type: unspecified hepatic cirrhosis Ascites presence : with ascites Qualified Code(s): K74.60 - Unspecified cirrhosis of liver (5) Hepatic encephalopathy Assessment/Plan: lactulose trend ammonia Code(s): K72.90 - HEPATIC FAILURE, UNSPECIFIED WITHOUT COMA (6) Sedative dependence Assessment/Plan: methaodone 15mg Code(s): F13.20 - SEDATIVE, HYPNOTIC OR ANXIOLYTIC DEPENDENCE, UNCOMPLICATED (7) Ascites Assessment/Plan: s/p pleurex cath to get drained again today Code(s): R18.8 - OTHER ASCITES Qualifiers: Ascites type: due to alcoholic cirrhosis Qualified Code(s): K70.31 - Alcoholic cirrhosis of liver with ascites (8) Edema Assessment/Plan: postive DVT in left leg- appreciate vascular eval ivc filter in place since 1998>? 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,cirrhosis Code(s): D69.6 - THROMBOCYTOPENIA, UNSPECIFIED (11) Diabetes Assessment/Plan: BGM sliding scalre hga1c levemir Code(s): E11.9 - TYPE 2 DIABETES MELLITUS WITHOUT COMPLICATIONS Qualifiers: Diabetes mellitus type: type 2 Condition: Improved - Instructions Referrals: Jag Thompson MD [Primary Care Provider] - 1 Week Disposition: VNS/HOME HEALTH CARE - Home Medications Comprehensive Discharge Medication List: Ambulatory Orders Albuterol 2.5/Ipratropium 0.5 [Duoneb -] 1 amp NEB Q6H PRN #120 amp 10/25/16 Methadone [Dolophine -] 10 mg PO DAILY 11/05/16 Rifaximin [Xifaxan -] 550 mg PO BID #20 tablet 12/31/16 Furosemide [Lasix -] 60 mg PO DAILY #90 tablet 01/07/17 Gabapentin [Neurontin -] 100 mg PO BID #60 capsule 01/07/17 Insulin (Levemir) [Levemir Vial] 15 units SQ HS ml 01/07/17 Insulin (Levemir) [Levemir Vial] 25 units SQ AM ml 01/07/17 Lactulose (Oral Use) [Cephulac -] 20 gm PO QID #2400 gr 01/07/17 Metoprolol Tartrate [Lopressor -] 25 mg PO BID #60 tablet 01/07/17 Pantoprazole Sodium [Protonix -] 40 mg PO DAILY #30 tablet.ec 01/07/17 Rifaximin [Xifaxan -] 550 mg PO BID #60 tablet 01/07/17
[2017-01-08] MEDS ORDERED: PT OWN MED DRAWER 7, Y5N ONE (09:06)
[2017-01-08] MEDS: SPIRONOLACTONE 25 MG TABLET (FP) PO SCH (09:10)
[2017-01-08] MEDS: METOPROLOL TARTRATE 25 MG TABLET (FP) PO SCH ×2 (09:11→21:48)
[2017-01-08] MEDS: LACTULOSE 20 GM/30 ML UDC (FOR ORAL USE ONLY) PO SCH ×5 (09:11→21:49)
[2017-01-08] MEDS: FUROSEMIDE 20 MG TABLET (FP) PO SCH (09:11)
[2017-01-08] MEDS: METHADONE HCL 5 MG TABLET PO SCH ×2 (09:11→21:48)
[2017-01-08] MEDS: GABAPENTIN 100 MG CAPSULE (FP) PO SCH ×2 (09:12→21:49)
[2017-01-08] MEDS: PANTOPRAZOLE 40 MG TABLET (FP) PO SCH (09:12)
[2017-01-08 09:22] LABS: ALBUMIN 2.1 g/dl (3.4-5.0); BILIRUBIN,TOTAL 1.1 mg/dL (0.2-1.0); CALCIUM 7.8 mg/dL (8.5-10.1); CREATININE 1.5 mg/dL (0.7-1.3); TOT PROT 7.1 g/dl (6.4-8.2)
--- NOTE | 2017-01-08 10:17 | PN ---
Progress Note (short form) - Note Progress Note: PULMONARY APPEARS STABLE VSS ANICTERIC RIGHT PLEUREX CATHETER/DIMINISHED BREATH SOUNDS S1S2 SOFT/ASCITES LESS EDEMA LABS/MEDS/IMAGING NOTED HEPATIC HYDROTHORAX S/P PLACEMENT RIGHT PLEUREX INITIATE INTERMITTENT DRAINAGE BASED ON SYMPTOMS AND RADIOGRAPH FINDINGS IMPROVED RADIOGRAPH DISCHARGE PLANNING Minh GARZA MD Problem List - Problems (1) Cirrhosis of liver Code(s): K74.60 - UNSPECIFIED CIRRHOSIS OF LIVER Qualifiers: Hepatic cirrhosis type: unspecified hepatic cirrhosis Ascites presence : with ascites Qualified Code(s): K74.60 - Unspecified cirrhosis of liver (2) Portal hypertension Code(s): K76.6 - PORTAL HYPERTENSION (3) Radiculopathy Code(s): M54.10 - RADICULOPATHY, SITE UNSPECIFIED (4) Pleural effusion due to another disorder Code(s): J90 - PLEURAL EFFUSION, NOT ELSEWHERE CLASSIFIED
--- NOTE | 2017-01-08 15:28 | PN ---
Progress Note (short form) - Note Progress Note: Patient seen and examined Some SOB and dyspnea No chest pains Some leakage about pleurex catheter Last Vital Signs Temp Pulse Resp BP Pulse Ox 97.9 F 62 18 112/67 97 01/08/17 14:05 01/08/17 14:05 01/08/17 14:05 01/08/17 14:05 01/07/17 21:00 HEENT: ANNABEL, EOM Intact Oropharynx: No thrush, No mucositis Cor: RSR, No murmurs, No gallops Lungs: diminished breath sounds bilaterally Abd: ascites, umbilical hernia Ext:stasis, edema Skin: No rashes, Integument intact CBC, BMP 01/08/17 06:15 01/08/17 06:15 Current Medications Generic Name Dose Route Start Last Admin Trade Name Freq PRN Reason Stop Dose Admin Furosemide 60 mg 01/07/17 10:00 01/08/17 09:11 Lasix - PO 60 mg DAILY [facility] Administration Gabapentin 100 mg 12/31/16 22:00 01/08/17 09:12 Neurontin - PO 100 mg BID [facility] Administration Insulin Aspart 1 vial 01/05/17 16:30 01/08/17 11:23 Novolog Vial Sliding Scale - SQ 4 units ACHS [facility] Administration Protocol Insulin Detemir 10 units 01/05/17 22:00 01/07/17 22:07 Levemir Vial SQ 10 unit HS [facility] Administration Insulin Detemir 25 units 01/07/17 00:23 01/08/17 06:27 Levemir Vial SQ 25 units AM [facility] Administration Lactulose 20 gm 01/07/17 10:00 01/08/17 13:35 Cephulac (Oral Use) PO 20 gm QID [facility] Administration Methadone HCl 10 mg 01/02/17 22:00 01/08/17 09:11 Dolophine - PO 10 mg BID [facility] Administration Metoprolol Tartrate 25 mg 01/03/17 22:00 01/08/17 09:11 Lopressor - PO 25 mg BID [facility] Administration Oxycodone HCl 10 mg 01/06/17 10:01 01/08/17 13:52 Roxicodone - PO 10 mg Q4H PRN Administration PAIN Pantoprazole Sodium 40 mg 01/01/17 10:00 01/08/17 09:12 Protonix - PO 40 mg DAILY [facility] Administration Spironolactone 100 mg 01/06/17 10:01 01/08/17 09:10 Aldactone - PO 100 mg DAILY [facility] Administration Impression: End stage liver disease Pleural effusion- s/p pleurex catheter Ascites Portal hypertension Thrombocytopenia Anemia NHL of bone marrow Plan: Pleurex drainage as is necessary as out patient
[2017-01-09] MEDS: oxyCODONE HCL 5 MG TABLET PO PRN ×4 (00:48→19:00)
[2017-01-09] MEDS ORDERED: INSULIN (NOVOLOG) ASPART 100 UNITS/ML 10ML VIAL ONE ×2 (06:32→12:30)
[2017-01-09] MEDS: INSULIN DETEMIR 100 UNITS/ML MDV SQ SCH ×2 (06:38→22:06)
[2017-01-09] MEDS: INSULIN SLIDING SCALE (NOVOLOG) 1 VIAL SQ SCH ×4 (06:42→22:06)
[2017-01-09] MEDS ORDERED: PT OWN MED DRAWER 7, Y5N ONE ×3 (09:28→21:46)
[2017-01-09] MEDS: GABAPENTIN 100 MG CAPSULE (FP) PO SCH ×2 (09:33→21:57)
[2017-01-09] MEDS: METHADONE HCL 5 MG TABLET PO SCH ×2 (09:33→21:57)
[2017-01-09] MEDS: SPIRONOLACTONE 25 MG TABLET (FP) PO SCH ×2 (09:33→21:57)
[2017-01-09] MEDS: FUROSEMIDE 20 MG TABLET (FP) PO SCH (09:33)
[2017-01-09] MEDS: METOPROLOL TARTRATE 25 MG TABLET (FP) PO SCH ×2 (09:34→21:57)
[2017-01-09] MEDS: PANTOPRAZOLE 40 MG TABLET (FP) PO SCH (09:34)
[2017-01-09] MEDS: LACTULOSE 20 GM/30 ML UDC (FOR ORAL USE ONLY) PO SCH ×4 (09:34→22:07)
--- NOTE | 2017-01-09 12:43 | PN ---
Progress Note (short form) - Note Progress Note: Patient seen and examined Drains from pleurex daily No SOB or dyspnea. No chest pains. No GI complaints of nausea, emesis, diarrhea, constipation Last Vital Signs Temp Pulse Resp BP Pulse Ox 98.1 F 72 16 142/84 97 01/09/17 10:00 01/09/17 10:00 01/09/17 10:00 01/09/17 10:00 01/09/17 09:00 HEENT: ANNABEL, EOM Intact Oropharynx: No thrush, No mucositis, upper denture, edentulous lower Cor: RSR, No murmurs, No gallops Lungs: Clear to P&A Abd: ascites, umbilical hernia Ext LE edema Skin: stasis CBC, BMP 01/08/17 06:15 01/08/17 06:15 Current Medications Generic Name Dose Route Start Last Admin Trade Name Freq PRN Reason Stop Dose Admin Furosemide 60 mg 01/07/17 10:00 01/09/17 09:33 Lasix - PO 60 mg DAILY [facility] Administration Gabapentin 100 mg 12/31/16 22:00 01/09/17 09:33 Neurontin - PO 100 mg BID [facility] Administration Insulin Aspart 1 vial 01/05/17 16:30 01/09/17 12:32 Novolog Vial Sliding Scale - SQ 4 units ACHS [facility] Administration Protocol Insulin Detemir 10 units 01/05/17 22:00 01/08/17 21:48 Levemir Vial SQ 10 unit HS [facility] Administration Insulin Detemir 25 units 01/07/17 00:23 01/09/17 06:38 Levemir Vial SQ 25 units AM [facility] Administration Lactulose 20 gm 01/07/17 10:00 01/09/17 09:34 Cephulac (Oral Use) PO 20 gm QID [facility] Administration Methadone HCl 10 mg 01/02/17 22:00 01/09/17 09:33 Dolophine - PO 10 mg BID [facility] Administration Metoprolol Tartrate 25 mg 01/03/17 22:00 01/09/17 09:34 Lopressor - PO 25 mg BID [facility] Administration Pantoprazole Sodium 40 mg 01/01/17 10:00 01/09/17 09:34 Protonix - PO 40 mg DAILY [facility] Administration Spironolactone 100 mg 01/06/17 10:01 01/09/17 09:33 Aldactone - PO 100 mg DAILY [facility] Administration Impression: S/P peurex catherter Ascites/hydrothorax Cirrhosis Anemia Thrombocytopenia Hx of NHL bone marrow Diabetes Mellitus Plan: Continued titration of diuretics in conjunction with pleurex drainage.
--- NOTE | 2017-01-09 13:06 | PN ---
Progress Note (short form) - Note Progress Note: PULMONARY Denies shortness of breath or chest pain. Drained 1 L from pleur-x today. Last Vital Signs Temp Pulse Resp BP Pulse Ox 98.1 F 72 16 142/84 97 01/09/17 10:00 01/09/17 10:00 01/09/17 10:00 01/09/17 10:00 01/09/17 09:00 Gen: NAD at rest Heart: RRR Lung: decreased breath sounds right base 2/[address] way up Abd: softly distended, nontender Ext: + edema improving CBC, BMP 01/08/17 06:15 01/08/17 06:15 Active Medications Furosemide (Lasix -) 60 mg PO DAILY [facility] Last Admin: 01/09/17 09:33 Dose: 60 mg Gabapentin (Neurontin -) 100 mg PO BID [facility] Last Admin: 01/09/17 09:33 Dose: 100 mg Insulin Aspart (Novolog Vial Sliding Scale -) 1 vial SQ ACHS [facility] PRN Reason: Protocol Last Admin: 01/09/17 12:32 Dose: 4 units Insulin Detemir (Levemir Vial) 10 units SQ HS [facility] Last Admin: 01/08/17 21:48 Dose: 10 unit Insulin Detemir (Levemir Vial) 25 units SQ AM [facility] Last Admin: 01/09/17 06:38 Dose: 25 units Lactulose (Cephulac (Oral Use)) 20 gm PO QID [facility] Last Admin: 01/09/17 09:34 Dose: 20 gm Methadone HCl (Dolophine -) 10 mg PO BID [facility] Last Admin: 01/09/17 09:33 Dose: 10 mg Metoprolol Tartrate (Lopressor -) 25 mg PO BID [facility] Last Admin: 01/09/17 09:34 Dose: 25 mg Pantoprazole Sodium (Protonix -) 40 mg PO DAILY [facility] Last Admin: 01/09/17 09:34 Dose: 40 mg Spironolactone (Aldactone -) 100 mg PO DAILY [facility] Last Admin: 01/09/17 09:33 Dose: 100 mg A/P Liver Cirrhosis Ascites Pleural Effusion/Hepatic Hydrothorax s/p R pleur-x placement Hepatic Encephalopathy LLE DVT Thrombocytopenia Coagulopathy - continue lasix, aldactone - ideally titrate diuretics to control accumulation of ascites/hydrothorax and minimize pleural drainage and avoid excessive protein/electrolyte losses - will increase aldactone to 100mg BID - lactulose/rifaximin - monitor platelets, coags - DVT prophylaxis
[2017-01-09] MEDS ORDERED: oxyCODONE HCL 5 MG TABLET ONE ×3 (13:20→18:56)
--- NOTE | 2017-01-09 13:22 | DS ---
Physical Examination Vital Signs: Vital Signs Temperature 98.1 F 01/09/17 10:00 Pulse Rate 72 01/09/17 10:00 Respiratory Rate 16 01/09/17 10:00 Blood Pressure 142/84 01/09/17 10:00 O2 Sat by Pulse Oximetry (%) 97 01/09/17 09:00 Findings/Remarks: WALKING ON UNIT WANTS TO GO HOME Cardiovascular: Yes: Regular Rate and Rhythm Respiratory: Yes: Diminished Gastrointestinal: Yes: Normal Bowel Sounds, Soft Labs: CBC, BMP 01/08/17 06:15 01/08/17 06:15 Discharge Summary Reason For Visit: ENCEPHALOPATHY DUR TO METABOLIC FACTOR OR TOXIN Current Active Problems Atrial fibrillation with rapid ventricular response (Acute) Cirrhosis of liver (Acute) DVT (deep venous thrombosis) (Acute) Diabetes (Acute) Hepatic encephalopathy (Acute) Hyperglycemia (Acute) IDDM (insulin dependent diabetes mellitus) (Acute) Pleural effusion due to another disorder (Acute) Portal hypertension (Acute) Radiculopathy (Acute) Right inguinal hernia (Acute) Tachypnea (Acute) Type 2 diabetes mellitus with other diabetic neurological complication (Acute) Hospital Course: The patient is a 57 year old male with a past medical hx of HTN, hyperlipidemia , coronary artery disease, type 2 diabetes (on insulin), end stage liver disease (secondary to hepatitis C), hx of hepatic encephalopathy, and lymphoma who presents to the ED via EMS for evaluation of an unwitnessed fall this morning. Per EMS, the patient was found by his neighbor on the floor of his home and called EMS. The patient notes he was in his house this morning when he lost his balance and fell onto the floor. He states he then called his neighbor. He denies hitting his head and loss of consciousness. He states he ate breakfast this morning, which consisted of eggs, corn, orange juice, and iced tea. The patient reports he usually checks his blood sugar levels every day , but did not check his levels this morning. The patient notes he was in his usual state of health up until this morning and denies any recent illnesses. per patient he says he says he cannot move his legs especially his right leg more than left leg that well and thus he fell - Problems (1) DVT (deep venous thrombosis) Assessment/Plan: seen by vascular sx plan is to repeat doppler today to see if dvt is extending or not as patient is risk for bleeding given coagulopathy and thrombocytopenia Code(s): I82.409 - ACUTE EMBOLISM AND THOMBOS UNSP DEEP VN UNSP LOWER EXTREMITY Qualifiers: DVT location: lower extremity Affected thrombotic vein of extremity: femoral Laterality: left Chronicity: acute Qualified Code(s): I82.412 - Acute embolism and thrombosis of left femoral vein (2) Tachypnea Assessment/Plan: pleurex cath- 1500ml cc drained on 01/01 to get drained today and then repeat cxr. Code(s): R06.82 - TACHYPNEA, NOT ELSEWHERE CLASSIFIED (3) Fall Assessment/Plan: does not want to go for rehab ambulating with cane Code(s): W19.XXXA - UNSPECIFIED FALL, INITIAL ENCOUNTER Qualifiers: Encounter type: initial encounter Qualified Code(s): W19.XXXA - Unspecified fall, initial encounter (4) Cirrhosis of liver Assessment/Plan: lactulose rifaximin Code(s): K74.60 - UNSPECIFIED CIRRHOSIS OF LIVER Qualifiers: Hepatic cirrhosis type: unspecified hepatic cirrhosis Ascites presence : with ascites Qualified Code(s): K74.60 - Unspecified cirrhosis of liver (5) Hepatic encephalopathy Assessment/Plan: lactulose trend ammonia Code(s): K72.90 - HEPATIC FAILURE, UNSPECIFIED WITHOUT COMA (6) Sedative dependence Assessment/Plan: methaodone 15mg Code(s): F13.20 - SEDATIVE, HYPNOTIC OR ANXIOLYTIC DEPENDENCE, UNCOMPLICATED (7) Ascites Assessment/Plan: s/p pleurex cath to get drained again today Code(s): R18.8 - OTHER ASCITES Qualifiers: Ascites type: due to alcoholic cirrhosis Qualified Code(s): K70.31 - Alcoholic cirrhosis of liver with ascites (8) Edema Assessment/Plan: postive DVT in left leg- appreciate vascular eval ivc filter in place since 1998>? Code(s): R60.9 - EDEMA, UNSPECIFIED Qualifiers: Edema type: unspecified Qualified Code(s): R60.9 - Edema, unspecified (9) Hydrothorax Assessment/Plan: to get drained again today by IR s/p pleurex cath on lasix as well Code(s): J94.8 - OTHER SPECIFIED PLEURAL CONDITIONS (10) Thrombocytopenia Assessment/Plan: s/p platelet transfusion on 3/10 sec to hyperspleenism,cirrhosis Code(s): D69.6 - THROMBOCYTOPENIA, UNSPECIFIED (11) Diabetes Assessment/Plan: BGM sliding scalre hga1c levemir Code(s): E11.9 - TYPE 2 DIABETES MELLITUS WITHOUT COMPLICATIONS Qualifiers: Diabetes mellitus type: type 2 Condition: Improved - Instructions Referrals: Jag Thompson MD [Primary Care Provider] - 1 Week Disposition: VNS/HOME HEALTH CARE - Home Medications Comprehensive Discharge Medication List: Ambulatory Orders Albuterol 2.5/Ipratropium 0.5 [Duoneb -] 1 amp NEB Q6H PRN #120 amp 10/25/16 Methadone [Dolophine -] 10 mg PO DAILY 11/05/16 Rifaximin [Xifaxan -] 550 mg PO BID #20 tablet 12/31/16 Furosemide [Lasix -] 60 mg PO DAILY #90 tablet 01/07/17 Gabapentin [Neurontin -] 100 mg PO BID #60 capsule 01/07/17 Insulin (Levemir) [Levemir Vial] 15 units SQ HS ml 01/07/17 Insulin (Levemir) [Levemir Vial] 25 units SQ AM ml 01/07/17 Lactulose (Oral Use) [Cephulac -] 20 gm PO QID #2400 gr 01/07/17 Metoprolol Tartrate [Lopressor -] 25 mg PO BID #60 tablet 01/07/17 Pantoprazole Sodium [Protonix -] 40 mg PO DAILY #30 tablet.ec 01/07/17 Rifaximin [Xifaxan -] 550 mg PO BID #60 tablet 01/07/17
[2017-01-10] MEDS: INSULIN DETEMIR 100 UNITS/ML MDV SQ SCH (06:33)
[2017-01-10] MEDS: INSULIN SLIDING SCALE (NOVOLOG) 1 VIAL SQ SCH ×3 (06:34→17:37)
[2017-01-10 08:58] LABS: BASOPHIL 0.6 % (0-2.0); EOSINOPHIL 3.7 % (0-4.5); MCH 33.7 pg (25.7-33.7); MCHC 34.6 g/dl (32.0-35.9); MEAN CELL VOLUME 97.5 fl (80-96); MEAN PLT VOLUME 10.1 fl (7.5-11.1); NEUTROPHILS 61.2 % (42.8-82.8); PLATELET COUNT 37 K/MM3 (134-434); RDW 16.6 % (11.9-15.9); WHITE BLOOD COUNT 4.7 K/mm3 (4.0-10.0)
[2017-01-10] MEDS ORDERED: PT OWN MED DRAWER 7, Y5N ONE (09:14)
[2017-01-10] MEDS ORDERED: METHADONE HCL 10 MG TABLET ONE (09:15)
[2017-01-10 09:29] LABS: ALBUMIN 2.2 g/dl (3.4-5.0); BILIRUBIN,TOTAL 1.1 mg/dL (0.2-1.0); CALCIUM 8.3 mg/dL (8.5-10.1); CREATININE 1.5 mg/dL (0.7-1.3); MAGNESIUM 1.8 mg/dL (1.8-2.4); PHOSPHOROUS 2.9 mg/dL (2.5-4.9); TOT PROT 7.1 g/dl (6.4-8.2)
[2017-01-10] MEDS: PANTOPRAZOLE 40 MG TABLET (FP) PO SCH (09:56)
[2017-01-10] MEDS: SPIRONOLACTONE 25 MG TABLET (FP) PO SCH (09:56)
[2017-01-10] MEDS: FUROSEMIDE 20 MG TABLET (FP) PO SCH (09:57)
[2017-01-10] MEDS: METOPROLOL TARTRATE 25 MG TABLET (FP) PO SCH (09:58)
[2017-01-10] MEDS: GABAPENTIN 100 MG CAPSULE (FP) PO SCH (09:59)
--- NOTE | 2017-01-10 10:24 | DS ---
Physical Examination Vital Signs: Vital Signs Temperature 98.6 F 01/10/17 06:00 Pulse Rate 60 01/10/17 06:00 Respiratory Rate 18 01/10/17 06:00 Blood Pressure 109/69 01/10/17 06:00 O2 Sat by Pulse Oximetry (%) 97 01/09/17 09:00 Cardiovascular: Yes: Regular Rate and Rhythm Respiratory: Yes: Regular, CTA Bilaterally Gastrointestinal: Yes: Normal Bowel Sounds, Soft Labs: CBC, BMP 01/10/17 06:50 01/10/17 06:50 Discharge Summary Reason For Visit: ENCEPHALOPATHY DUR TO METABOLIC FACTOR OR TOXIN Current Active Problems Atrial fibrillation with rapid ventricular response (Acute) Cirrhosis of liver (Acute) DVT (deep venous thrombosis) (Acute) Diabetes (Acute) Hepatic encephalopathy (Acute) Hyperglycemia (Acute) IDDM (insulin dependent diabetes mellitus) (Acute) Pleural effusion due to another disorder (Acute) Portal hypertension (Acute) Radiculopathy (Acute) Right inguinal hernia (Acute) Tachypnea (Acute) Type 2 diabetes mellitus with other diabetic neurological complication (Acute) Hospital Course: The patient is a 57 year old male with a past medical hx of HTN, hyperlipidemia , coronary artery disease, type 2 diabetes (on insulin), end stage liver disease (secondary to hepatitis C), hx of hepatic encephalopathy, and lymphoma who presents to the ED via EMS for evaluation of an unwitnessed fall this morning. Per EMS, the patient was found by his neighbor on the floor of his home and called EMS. The patient notes he was in his house this morning when he lost his balance and fell onto the floor. He states he then called his neighbor. He denies hitting his head and loss of consciousness. He states he ate breakfast this morning, which consisted of eggs, corn, orange juice, and iced tea. The patient reports he usually checks his blood sugar levels every day , but did not check his levels this morning. The patient notes he was in his usual state of health up until this morning and denies any recent illnesses. per patient he says he says he cannot move his legs especially his right leg more than left leg that well and thus he fell - Problems (1) DVT (deep venous thrombosis) Assessment/Plan: seen by vascular sx plan is to repeat doppler today to see if dvt is extending or not as patient is risk for bleeding given coagulopathy and thrombocytopenia Code(s): I82.409 - ACUTE EMBOLISM AND THOMBOS UNSP DEEP VN UNSP LOWER EXTREMITY Qualifiers: DVT location: lower extremity Affected thrombotic vein of extremity: femoral Laterality: left Chronicity: acute Qualified Code(s): I82.412 - Acute embolism and thrombosis of left femoral vein (2) Tachypnea Assessment/Plan: pleurex cath- 1500ml cc drained on 01/01 to get drained today and then repeat cxr. Code(s): R06.82 - TACHYPNEA, NOT ELSEWHERE CLASSIFIED (3) Fall Assessment/Plan: does not want to go for rehab ambulating with cane Code(s): W19.XXXA - UNSPECIFIED FALL, INITIAL ENCOUNTER Qualifiers: Encounter type: initial encounter Qualified Code(s): W19.XXXA - Unspecified fall, initial encounter (4) Cirrhosis of liver Assessment/Plan: lactulose rifaximin Code(s): K74.60 - UNSPECIFIED CIRRHOSIS OF LIVER Qualifiers: Hepatic cirrhosis type: unspecified hepatic cirrhosis Ascites presence : with ascites Qualified Code(s): K74.60 - Unspecified cirrhosis of liver (5) Hepatic encephalopathy Assessment/Plan: lactulose trend ammonia Code(s): K72.90 - HEPATIC FAILURE, UNSPECIFIED WITHOUT COMA (6) Sedative dependence Assessment/Plan: methaodone 15mg Code(s): F13.20 - SEDATIVE, HYPNOTIC OR ANXIOLYTIC DEPENDENCE, UNCOMPLICATED (7) Ascites Assessment/Plan: s/p pleurex cath to get drained again today Code(s): R18.8 - OTHER ASCITES Qualifiers: Ascites type: due to alcoholic cirrhosis Qualified Code(s): K70.31 - Alcoholic cirrhosis of liver with ascites (8) Edema Assessment/Plan: postive DVT in left leg- appreciate vascular eval ivc filter in place since 1998>? 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,cirrhosis Code(s): D69.6 - THROMBOCYTOPENIA, UNSPECIFIED (11) Diabetes Assessment/Plan: BGM sliding scalre hga1c levemir Code(s): E11.9 - TYPE 2 DIABETES MELLITUS WITHOUT COMPLICATIONS Qualifiers: Diabetes mellitus type: type 2 Condition: Improved Condition: Improved - Instructions Diet, Activity, Other Instructions: Activity as tolerated May take shower Drain 1000 cc from the plurex cath every other day, last done on 01/09/17Wednesday, next is due on 01/11/17 Diabetic low sodium diet Referrals: Jag Thompsno MD [Primary Care Provider] - 1 Week Andrea Jin MD, MD [Staff Physician] - Disposition: VNS/HOME HEALTH CARE - Home Medications Comprehensive Discharge Medication List: Ambulatory Orders Albuterol 2.5/Ipratropium 0.5 [Duoneb -] 1 amp NEB Q6H PRN #120 amp 10/25/16 Methadone [Dolophine -] 10 mg PO DAILY 11/05/16 Rifaximin [Xifaxan -] 550 mg PO BID #20 tablet 12/31/16 Furosemide [Lasix -] 60 mg PO DAILY #90 tablet 01/07/17 Gabapentin [Neurontin -] 100 mg PO BID #60 capsule 01/07/17 Insulin (Levemir) [Levemir Vial] 15 units SQ HS ml 01/07/17 Insulin (Levemir) [Levemir Vial] 25 units SQ AM ml 01/07/17 Lactulose (Oral Use) [Cephulac -] 20 gm PO QID #2400 gr 01/07/17 Metoprolol Tartrate [Lopressor -] 25 mg PO BID #60 tablet 01/07/17 Pantoprazole Sodium [Protonix -] 40 mg PO DAILY #30 tablet.ec 01/07/17 Rifaximin [Xifaxan -] 550 mg PO BID #60 tablet 01/07/17
--- NOTE | 2017-01-10 11:06 | PN ---
Progress Note (short form) - Note Progress Note: PULMONARY Denies shortness of breath or chest pain. Drained 1 L from pleur-x yesterday. Last Vital Signs Temp Pulse Resp BP Pulse Ox 98.6 F 60 18 109/69 97 01/10/17 06:00 01/10/17 06:00 01/10/17 06:00 01/10/17 06:00 01/09/17 09:00 Gen: NAD at rest Heart: RRR Lung: decreased breath sounds right base 2/3 way up Abd: softly distended, nontender Ext: + edema improving CBC, BMP 01/10/17 06:50 01/10/17 06:50 Active Medications Furosemide (Lasix -) 60 mg PO DAILY [facility] Last Admin: 01/10/17 09:57 Dose: 60 mg Gabapentin (Neurontin -) 100 mg PO BID [facility] Last Admin: 01/10/17 09:59 Dose: 100 mg Insulin Aspart (Novolog Vial Sliding Scale -) 1 vial SQ ACHS [facility] PRN Reason: Protocol Last Admin: 01/10/17 06:34 Dose: Not Given Insulin Detemir (Levemir Vial) 10 units SQ HS [facility] Last Admin: 01/09/17 22:06 Dose: 10 unit Insulin Detemir (Levemir Vial) 25 units SQ AM [facility] Last Admin: 01/10/17 06:33 Dose: Not Given Lactulose (Cephulac (Oral Use)) 20 gm PO QID [facility] Last Admin: 01/09/17 22:07 Dose: Not Given Metoprolol Tartrate (Lopressor -) 25 mg PO BID [facility] Last Admin: 01/10/17 09:58 Dose: 25 mg Pantoprazole Sodium (Protonix -) 40 mg PO DAILY [facility] Last Admin: 01/10/17 09:56 Dose: 40 mg Spironolactone (Aldactone -) 100 mg PO BID [facility] Last Admin: 01/10/17 09:56 Dose: 100 mg A/P Liver Cirrhosis Ascites Pleural Effusion/Hepatic Hydrothorax s/p R pleur-x placement Hepatic Encephalopathy LLE DVT Thrombocytopenia Coagulopathy - continue lasix, aldactone - ideally titrate diuretics to control accumulation of ascites/hydrothorax and minimize pleural drainage and avoid excessive protein/electrolyte losses - lactulose/rifaximin - monitor platelets, coags - DVT prophylaxis
--- NOTE | 2017-01-10 11:15 | PN ---
Progress Note (short form) - Note Progress Note: Patient seen Continues with drainage via pleurex Less short of breath and dyspnea Last Vital Signs Temp Pulse Resp BP Pulse Ox 98.6 F 60 18 109/69 97 01/10/17 06:00 01/10/17 06:00 01/10/17 06:00 01/10/17 06:00 01/09/17 09:00 Diminished breath sounds on right\ Cor-RSR Abd- ascites , umbilical hernia Lower extremity -stasis CBC, BMP 01/10/17 06:50 01/10/17 06:50 Current Medications Generic Name Dose Route Start Last Admin Trade Name Freq PRN Reason Stop Dose Admin Furosemide 60 mg 01/07/17 10:00 01/10/17 09:57 Lasix - PO 60 mg DAILY JADEN Administration Gabapentin 100 mg 12/31/16 22:00 01/10/17 09:59 Neurontin - PO 100 mg BID JADEN Administration Insulin Aspart 1 vial 01/05/17 16:30 01/10/17 06:34 Novolog Vial Sliding Scale - SQ Not Given ACHS [facility] Protocol Insulin Detemir 10 units 01/05/17 22:00 01/09/17 22:06 Levemir Vial SQ 10 unit HS JADEN Administration Insulin Detemir 25 units 01/07/17 00:23 01/10/17 06:33 Levemir Vial SQ Not Given AM [facility] Lactulose 20 gm 01/07/17 10:00 01/09/17 22:07 Cephulac (Oral Use) PO Not Given QID JADEN Metoprolol Tartrate 25 mg 01/03/17 22:00 01/10/17 09:58 Lopressor - PO 25 mg BID JADEN Administration Pantoprazole Sodium 40 mg 01/01/17 10:00 01/10/17 09:56 Protonix - PO 40 mg DAILY JADEN Administration Spironolactone 100 mg 01/09/17 22:00 01/10/17 09:56 Aldactone - PO 100 mg BID JADEN Administration Impression: Pleural effusion/hydrothorax/ascites s/p catheter drainage Cirrhosis Anemia Thrombocytopenia Bone marrow lymphoma Diabetes Mellitus hypersplenism Portal hypertension For discharge home Titration of diuretic Monitoring of CBC.
[2017-01-10] MEDS: LACTULOSE 20 GM/30 ML UDC (FOR ORAL USE ONLY) PO SCH ×3 (11:20→17:42)
[2017-01-10] MEDS ORDERED: oxyCODONE HCL 5 MG TABLET ONE (13:26)
[2017-01-10] MEDS: oxyCODONE HCL 5 MG TABLET PO PRN (13:28)
[2017-01-10] MEDS ORDERED: oxyCODONE HCL 5 MG TABLET PO PRN ×2 (13:33→13:35)
[2017-01-10 15:35] VITALS: BP 110/63; PULSE 60; TEMP 98.8
[2017-01-10] MEDS ORDERED: METHADONE HCL 10 MG TABLET PO SCH (22:00)
== END 2017-01-10 18:45 | disposition home health service (06) | DRG 187 ==
LOC: JER 08:10 → JERBED 10:20 → J8W 13:13
PROVIDERS: ADMIT Family Medicine; ATTEND Family Medicine
PROC: 0W9930Z Drainage of Right Pleural Cavity with Drainage Device, Percutaneous Approach (ICD-10-PCS; principal; 2017-01-01)
PROC: 30233R1 Transfusion of Nonautologous Platelets into Peripheral Vein, Percutaneous Approach (ICD-10-PCS; 2017-01-01)
DX: J94.8 Other specified pleural conditions (principal); R18.8 Other ascites; F13.20 Sedative, hypnotic or anxiolytic dependence, uncomplicated; K76.6 Portal hypertension; D68.9 Coagulation defect, unspecified; I82.432 Acute embolism and thrombosis of left popliteal vein; K74.60 Unspecified cirrhosis of liver; J90 Pleural effusion, not elsewhere classified; K72.90 Hepatic failure, unspecified without coma; D69.6 Thrombocytopenia, unspecified; Z79.4 Long term (current) use of insulin; I48.91 Unspecified atrial fibrillation; I10 Essential (primary) hypertension; E78.5 Hyperlipidemia, unspecified; I25.10 Atherosclerotic heart disease of native coronary artery without angina pectoris; Z98.61 Coronary angioplasty status; R06.82 Tachypnea, not elsewhere classified; B19.20 Unspecified viral hepatitis C without hepatic coma; D64.9 Anemia, unspecified; G58.8 Other specified mononeuropathies; F17.210 Nicotine dependence, cigarettes, uncomplicated; F41.9 Anxiety disorder, unspecified; I25.2 Old myocardial infarction; Z95.0 Presence of cardiac pacemaker; R41.82 Altered mental status, unspecified; E10.65 Type 1 diabetes mellitus with hyperglycemia
CPT/HCPCS: 32550; 36415; 36430; 70450-TC; 71010-TC; 71020-TC; 71250-TC; 74000-TC; 76098-TC; 76700-TC; 76942-TC; 80048; 80053; 81003; 81015; 82009; 82042; 82140; 82150; 82550; 82803; 82945; 82947; 83036; 83605; 83735; 83880; 83930; 84100; 84157; 84484; 85025; 85027; 85384; 85610; 85730; 87040; 87070; 87075; 87086; 87102; 87116; 87205; 87206; 87210; 87899; 88108; 88305-TC; 89051; 93005; 93010; 93970-TC; 93971-TC; 97116-GP; 97162-PG; 99283-25; C1729; C1769; C1894; J8540; P9034; P9038

== ENCOUNTER 2017-01-13 13:32 | Inpatient (IN) | payer OTHER ==
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
[2017-01-13 13:55] VITALS: BMI 38.7
[2017-01-13 14:49] LABS: ARTERIAL BLD GAS O2 SATURATION 95.5 % (90-98.9); ARTERIAL BLOOD GAS pH 7.44 (7.35-7.45)
[2017-01-13 14:50] LABS: ALLENS TEST POSITIVE; ART PUNCT SITE LEFT RADIAL; LPM/O2% 21%; METHEMOGLOBIN 0.3 % (0.4-1.5); PT. ON O2? NO
[2017-01-13 14:51] LABS: TYPE OF O2 ROOM AIR
[2017-01-13 14:57] LABS: ARTERIAL BLOOD GAS PO2 71.5 mmHg (80-100)
--- NOTE | 2017-01-13 15:05 | PDOC ---
Attending Attestation - Resident Resident Name: Cammie Alarcon - ED Attending Attestation I have performed the following: I have examined & evaluated the patient, The case was reviewed & discussed with the resident, I agree w/resident's findings & plan, Exceptions are as noted - HPI HPI: 01/13/17 15:03 56-year-old male well-known to this institution with history of heroin abuse and hepatic encephalopathy BIBA with somnolence/AMS. - Physicial Exam PE: 01/13/17 15:03 sedated but arousable, spontaneous respirations afebrile fresh puncture wound L wrist, substance to L naris R pleurocath - Medical Decision Making 01/13/17 15:04 Patient seen and evaluated with the resident. I agree with the overall evaluation, assessment, and management with the following summary of visit: 56 y/o M with extensive h/o drug abuse, hepatic encephalopathy p/w somnolence/ AMS. ? intox, ? encephalopathy. labs, ekg cxr close respiratory monitoring, hold narcan at this time.
[2017-01-13 15:20] LABS: BASOPHIL 0.4 % (0-2.0); EOSINOPHIL 0.9 % (0-4.5); MCHC 34.8 g/dl (32.0-35.9); MEAN CELL VOLUME 97.7 fl (80-96); MEAN PLT VOLUME 10.9 fl (7.5-11.1); NEUTROPHILS 81.7 % (42.8-82.8); PLATELET COUNT 38 K/MM3 (134-434)
[2017-01-13 15:29] LABS: CREATININE 2.2 mg/dL (0.7-1.3)
[2017-01-13 15:32] LABS: TROPONIN I 0.07 ng/ml (0.00-0.05)
[2017-01-13 17:49] LABS: URINE APPEARANCE CLEAR; URINE BILIRUBIN NEGATIVE (NEGATIVE); URINE COLOR YELLOW; URINE GLUCOSE (UA) 2+ (NEGATIVE); URINE KETONE NEGATIVE (NEGATIVE); URINE LEUK ESTERASE NEGATIVE (NEGATIVE); URINE NITRITE NEGATIVE (NEGATIVE); URINE PROTEIN NEGATIVE (NEGATIVE); URINE UROBILINOGEN NEGATIVE E.U./dl (0.2-1.0)
[2017-01-13 17:51] LABS: URINE BLOOD 2+ (NEGATIVE)
[2017-01-13 18:17] LABS: URINE MARIJUANA THC NEGATIVE ng/ml (CUTOFF=50)
[2017-01-13 19:43] LABS: URINE MUCUS RARE; URINE RBC 7 /hpf (0-3)
--- NOTE | 2017-01-13 20:12 | HP ---
Admitting History and Physical - Admission History of Present Illness: 56 year old male with a significant PMH of HTN, CAD, DM, HDL, end stage liver disease due to Hep C, hx of encepalopathy, lymphoma, polysubstance abuse, hx of hydrothorax is brought to ED by ambulance. He doesn't have any complaints today but he has altered mental status. Ambulance was called by visiting nurse, pt lives alone. He was discharged from [facility] several days ago. 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) Cardiovascular: Yes: CAD (reported prior MIs -> stents x4 at [facility] in 1998), HTN, Other (PPM palcement at time of PA in 1998, abnl EKG witth old inferior PA) Pulmonary: Yes: COPD, Other (PLEURAL EFFUSION WITH PREVIOUS thoracentesis and chest tube) Gastrointestinal: Yes: Ascites, Diverticulitis, Esophageal Varices (This patient does NOT have varices), GI Bleed (s/p multiple blood transfusions), Other (gastric varices ) Hepatobiliary: Yes: Cirrhosis (ESLD), Hepatitis C, Other (PORTAL HYPERTENSION) Renal/: Yes: Renal Inusuff (CKD (baseline 0.9-1.1)) Heme/Onc: Yes: Anemia, Thrombocytopenia Psych: Yes: Addictions (hx of polysubstance abuse & IVDA on maintenance Methadone), Anxiety Endocrine: Yes: Diabetes Mellitus (insulin-dependent) - Past Surgical History Past Surgical History: Yes: Permanent Pacemaker, Stent, Upper Endoscopy (with gastric varices/sclerotherapy) - Smoking History Smoking history: Current every day smoker Have you smoked in the past 12 months: Yes Aproximately how many cigarettes per day: 5 - Alcohol/Substance Use Hx Alcohol Use: No History of Substance Use: reports: Heroin (on methadone) - Social History ADL: Independent Occupation: not employed History of Recent Travel: No Home Medications - Allergies Allergies/Adverse Reactions: Allergies Allergy/AdvReac Type Severity Reaction Status Date / Time nalbuphine HCl [From Nubain] Allergy Verified 12/31/16 08:19 octreotide AdvReac Verified 12/31/16 08:19 - Home Medications Home Medications: Ambulatory Orders Albuterol 2.5/Ipratropium 0.5 [Duoneb -] 1 amp NEB Q6H PRN #120 amp 10/25/16 Methadone [Dolophine -] 10 mg PO DAILY 11/05/16 Rifaximin [Xifaxan -] 550 mg PO BID #20 tablet 12/31/16 Furosemide [Lasix -] 60 mg PO DAILY #90 tablet 01/07/17 Gabapentin [Neurontin -] 100 mg PO BID #60 capsule 01/07/17 Insulin (Levemir) [Levemir Vial] 15 units SQ HS ml 01/07/17 Insulin (Levemir) [Levemir Vial] 25 units SQ AM ml 01/07/17 Lactulose (Oral Use) [Cephulac -] 20 gm PO QID #2400 gr 01/07/17 Metoprolol Tartrate [Lopressor -] 25 mg PO BID #60 tablet 01/07/17 Pantoprazole Sodium [Protonix -] 40 mg PO DAILY #30 tablet.ec 01/07/17 Rifaximin [Xifaxan -] 550 mg PO BID #60 tablet 01/07/17 Family Disease History - Family Disease History Family Disease History: Heart Disease: Father (OPEN HEART SX,), CA: Mother (BREAST CANCER,) Review of Systems - Review of Systems Cardiovascular: reports: Edema. denies: Chest Pain Respiratory: reports: SOB on Exertion. denies: Cough Gastrointestinal: reports: Bloating. denies: Nausea, Rectal Bleeding Musculoskeletal: reports: Back Pain, Muscle Weakness Neurological: reports: Unsteady Gait, Weakness Physical Examination Vital Signs: Vital Signs Temperature 97.3 F L 01/13/17 13:48 Pulse Rate 60 01/13/17 17:41 Respiratory Rate 18 01/13/17 17:41 Blood Pressure 123/63 01/13/17 17:41 O2 Sat by Pulse Oximetry (%) 99 01/13/17 17:41 Cardiovascular: Yes: Regular Rate and Rhythm Respiratory: Yes: Diminished, On Nasal O2 Gastrointestinal: Yes: Normal Bowel Sounds, Soft Edema: Yes Integumentary: Yes: Venous Stasis Changes Neurological: Yes: Alert, Weakness Problem List - Problems (1) Acute kidney injury superimposed on CKD Assessment/Plan: HOLD LASIX AND ALDACTONE FOLLOW LABS Code(s): N17.9 - ACUTE KIDNEY FAILURE, UNSPECIFIED N18.9 - CHRONIC KIDNEY DISEASE, UNSPECIFIED (2) Cirrhosis of liver Assessment/Plan: LACTULOSE MONITOR Code(s): K74.60 - UNSPECIFIED CIRRHOSIS OF LIVER Qualifiers: Hepatic cirrhosis type: unspecified hepatic cirrhosis Ascites presence : with ascites Qualified Code(s): K74.60 - Unspecified cirrhosis of liver (3) Type 2 diabetes mellitus with other diabetic neurological complication Assessment/Plan: BGM ENDO Code(s): E11.49 - TYPE 2 DIABETES W OTH DIABETIC NEUROLOGICAL COMPLICATION (4) Altered mental status Assessment/Plan: MONITOR Code(s): R41.82 - ALTERED MENTAL STATUS, UNSPECIFIED Qualifiers: Altered mental status type: disorientation Qualified Code(s): R41.0 - Disorientation, unspecified (5) DVT (deep venous thrombosis) Assessment/Plan: UNABLE TO AC DUE TO PLAT Code(s): I82.409 - ACUTE EMBOLISM AND THOMBOS UNSP DEEP VN UNSP LOWER EXTREMITY Qualifiers: DVT location: lower extremity Affected thrombotic vein of extremity: femoral Laterality: left Chronicity: acute Qualified Code(s): I82.412 - Acute embolism and thrombosis of left femoral vein (7) Pleural effusion associated with hepatic disorder Assessment/Plan: PLEUREX IN PLACE Code(s): K76.9 - LIVER DISEASE, UNSPECIFIED J91.8 - PLEURAL EFFUSION IN OTHER CONDITIONS CLASSIFIED ELSEWHERE
[2017-01-13] MEDS ORDERED: METOPROLOL TARTRATE 25 MG TABLET (FP) PO SCH (22:00)
[2017-01-13] MEDS ORDERED: INSULIN SLIDING SCALE (NOVOLOG) 1 VIAL SQ SCH (22:00)
[2017-01-13 23:06] LABS: TROPONIN I 0.06 ng/ml (0.00-0.05)
[2017-01-14] MEDS ORDERED: INSULIN (NOVOLOG) ASPART 100 UNITS/ML 10ML VIAL ONE ×2 (00:30→18:06)
[2017-01-14] MEDS: RIFAXIMIN 550 MG TABLET (UD) PO SCH ×3 (00:35→21:44)
[2017-01-14] MEDS: GABAPENTIN 100 MG CAPSULE (FP) PO SCH ×3 (00:35→21:45)
[2017-01-14] MEDS: LACTULOSE 20 GM/30 ML UDC (FOR ORAL USE ONLY) PO SCH ×5 (00:37→21:46)
[2017-01-14] MEDS: INSULIN SLIDING SCALE (NOVOLOG) 1 VIAL SQ SCH ×5 (02:31→21:44)
[2017-01-14] MEDS ORDERED: INSULIN DETEMIR 100 UNITS/ML MDV SQ ONE (04:00)
[2017-01-14] MEDS ORDERED: INSULIN (NOVOLOG) ASPART 100 UNITS/ML 10ML VIAL SQ ONE (04:00)
[2017-01-14] MEDS ORDERED: DEXTROSE 5%-0.45% SALINE 1,000 ML IV SCH (07:30)
[2017-01-14 07:42] LABS: BASOPHIL 0.5 % (0-2.0); EOSINOPHIL 2.4 % (0-4.5); MCH 33.8 pg (25.7-33.7); MCHC 34.9 g/dl (32.0-35.9); MEAN CELL VOLUME 96.9 fl (80-96); MEAN PLT VOLUME 10.7 fl (7.5-11.1); NEUTROPHILS 76.8 % (42.8-82.8); PLATELET COUNT 43 K/MM3 (134-434); WHITE BLOOD COUNT 9.5 K/mm3 (4.0-10.0)
[2017-01-14] MEDS ORDERED: SODIUM CHLORIDE 0.45%/POT 1,000 ML IV SCH (08:15)
[2017-01-14 08:30] LABS: CALCIUM 7.6 mg/dL (8.5-10.1); CREATININE 2.1 mg/dL (0.7-1.3); TOT PROT 6.5 g/dl (6.4-8.2)
[2017-01-14 08:32] LABS: TROPONIN I 0.05 ng/ml (0.00-0.05)
[2017-01-14] MEDS ORDERED: PT OWN MED DRAWER 7, Y5N ONE (09:03)
[2017-01-14] MEDS: METHADONE HCL 10 MG TABLET PO SCH ×2 (09:30→19:58)
[2017-01-14] MEDS: PANTOPRAZOLE 40 MG TABLET (FP) PO SCH (09:31)
[2017-01-14] MEDS ORDERED: FUROSEMIDE 20 MG TABLET (FP) PO SCH (10:00)
--- NOTE | 2017-01-14 10:29 | PN ---
Progress Note, Physician Chief Complaint: sleepy in bed hypotensive metoprolol held lasix on hold trying to get iv access for iv fluids - Current Medication List Current Medications: Active Medications Albuterol/Ipratropium (Duoneb -) 1 amp NEB Q6H PRN PRN Reason: SHORTNESS OF BREATH Gabapentin (Neurontin -) 100 mg PO BID [facility] Last Admin: 01/14/17 09:31 Dose: 100 mg Potassium Chloride/Sodium Chloride (1/2ns+20meq Kcl) 1,000 mls @ 75 mls/hr IV ASDIR [facility] Last Admin: 01/14/17 09:29 Dose: 75 mls/hr Insulin Aspart (Novolog Vial Sliding Scale -) 1 vial SQ ACHS [facility] PRN Reason: Protocol Last Admin: 01/14/17 06:40 Dose: Not Given Lactulose (Cephulac (Oral Use)) 20 gm PO QID [facility] Last Admin: 01/14/17 09:30 Dose: 20 gm Methadone HCl (Dolophine -) 10 mg PO DAILY [facility] Last Admin: 01/14/17 09:30 Dose: Not Given Metoprolol Tartrate (Lopressor -) 25 mg PO BID [facility] Last Admin: 01/14/17 00:35 Dose: 25 mg Pantoprazole Sodium (Protonix -) 40 mg PO DAILY [facility] Last Admin: 01/14/17 09:31 Dose: 40 mg Rifaximin (Xifaxan -) 550 mg PO BID [facility] Last Admin: 01/14/17 09:31 Dose: 550 mg - Objective Vital Signs: Vital Signs Temperature 97.6 F 01/14/17 06:00 Pulse Rate 61 01/14/17 06:00 Respiratory Rate 20 01/14/17 06:00 Blood Pressure 78/41 01/14/17 06:00 O2 Sat by Pulse Oximetry (%) 94 L 01/13/17 20:00 Constitutional: Yes: Calm Neck: Yes: Trachea Midline Cardiovascular: Yes: Regular Rate and Rhythm, S1, S2, Other (pacemaker) Respiratory: Yes: CTA Bilaterally, Diminished (on right side pleurex cath) Gastrointestinal: Yes: Normal Bowel Sounds, Soft, Hernia Extremities: Yes: Other (chronic venous stasis changes) Neurological: Yes: Other (now he is awake responding to his name says he wants to go home) Labs: CBC, BMP 01/14/17 06:30 01/14/17 06:30 Problem List - Problems (1) Acute kidney injury superimposed on CKD Assessment/Plan: iv hydration renal eval Code(s): N17.9 - ACUTE KIDNEY FAILURE, UNSPECIFIED N18.9 - CHRONIC KIDNEY DISEASE, UNSPECIFIED (2) Cirrhosis of liver Assessment/Plan: rifaximin lactulose for elevated [place] Code(s): K74.60 - UNSPECIFIED CIRRHOSIS OF LIVER Qualifiers: Hepatic cirrhosis type: unspecified hepatic cirrhosis Ascites presence : with ascites Qualified Code(s): K74.60 - Unspecified cirrhosis of liver (3) Hyperglycemia Assessment/Plan: endo eval insulin Code(s): R73.9 - HYPERGLYCEMIA, UNSPECIFIED (4) Type 2 diabetes mellitus with other diabetic neurological complication Assessment/Plan: bgm insulin endo neurontin Code(s): E11.49 - TYPE 2 DIABETES W OTH DIABETIC NEUROLOGICAL COMPLICATION (5) METHADONE MAINTENANCE Assessment/Plan: methadone was very lethargic today so held (6) Pleural effusion Assessment/Plan: pleurex in place Code(s): J90 - PLEURAL EFFUSION, NOT ELSEWHERE CLASSIFIED (7) DVT (deep venous thrombosis) Assessment/Plan: no AC sec to low platelets Code(s): I82.409 - ACUTE EMBOLISM AND THOMBOS UNSP DEEP VN UNSP LOWER EXTREMITY Qualifiers: DVT location: lower extremity Affected thrombotic vein of extremity: femoral Laterality: left Chronicity: acute Qualified Code(s): I82.412 - Acute embolism and thrombosis of left femoral vein
--- NOTE | 2017-01-14 12:33 | CON.CARD ---
Consult Consult Specialty:: Cardiology Referred by:: Dr. Thompson Reason for Consultation:: Mild troponin elevation - History of Present Illness History of Present Illness: 56 yo male with HTN, DM (insulin dependent), COPD, CAD with multiple reported MIs, reported stents x4 at [facility] (no details available), pacemaker, Hep C cirrhosis/ESLD w/ portal HTN/esophageal varices/ascites, low-grade B-cell lymphoma, h/o hydrothorax with prior thoracentesis and chest tube, h/o severe GI bleed due to gastric varices. Patient was admitted with reported "altered mental status" however patient is alert and coherent today and denies any complaints. He is unclear as to the reason for his admission. Cardiology consulted for minimal troponin elevation of 0.06 -> 0.05. Denies any chest pain or dyspnea at this time. ECG demonstrated atrial paced rhythm with non-specific ST-T abnormalities. 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 (history of hepatic encephalopathy) Cardio/Vascular: Yes: CAD (reported prior MIs -> stents x4 at [facility] in 1998), HTN , Other (PPM palcement at time of PA in 1998, abnl EKG witth old inferior PA) Pulmonary: Yes: COPD, Other (PLEURAL EFFUSION WITH PREVIOUS thoracentesis and chest tube) Gastrointestinal: Yes: Ascites, Diverticulitis, Esophageal Varices (This patient does NOT have varices), GI Bleed (s/p multiple blood transfusions), Other (gastric varices ) Hepatobiliary: Yes: Cirrhosis (ESLD), Hepatitis C, Other (PORTAL HYPERTENSION) Renal/: Yes: Renal Inusuff (CKD (baseline 0.9-1.1)) Psych: Yes: Addictions (hx of polysubstance abuse & IVDA on maintenance Methadone), Anxiety Endocrine: Yes: Diabetes Mellitus (insulin-dependent) - Past Surgical History Past Surgical History: Yes: Permanent Pacemaker ([employer]), Stent, Upper Endoscopy (with gastric varices/sclerotherapy) - Alcohol/Substance Use Hx Alcohol Use: No History of Substance Use: reports: Heroin (on methadone) - Smoking History Smoking history: Current every day smoker Have you smoked in the past 12 months: Yes Aproximately how many cigarettes per day: 5 - Social History Usual Living Arrangement: Other ( from . The youngest of his 3 children lives with him) ADL: Independent Occupation: not employed History of Recent Travel: No Home Medications - Allergies Allergies/Adverse Reactions: Allergies Allergy/AdvReac Type Severity Reaction Status Date / Time nalbuphine HCl [From Nubain] Allergy Verified 12/31/16 08:19 octreotide AdvReac Verified 12/31/16 08:19 - Home Medications Home Medications: Ambulatory Orders Albuterol 2.5/Ipratropium 0.5 [Duoneb -] 1 amp NEB Q6H PRN #120 amp 10/25/16 Methadone [Dolophine -] 10 mg PO DAILY 11/05/16 Rifaximin [Xifaxan -] 550 mg PO BID #20 tablet 12/31/16 Furosemide [Lasix -] 60 mg PO DAILY #90 tablet 01/07/17 Gabapentin [Neurontin -] 100 mg PO BID #60 capsule 01/07/17 Insulin (Levemir) [Levemir Vial] 15 units SQ HS ml 01/07/17 Insulin (Levemir) [Levemir Vial] 25 units SQ AM ml 01/07/17 Lactulose (Oral Use) [Cephulac -] 20 gm PO QID #2400 gr 01/07/17 Metoprolol Tartrate [Lopressor -] 25 mg PO BID #60 tablet 01/07/17 Pantoprazole Sodium [Protonix -] 40 mg PO DAILY #30 tablet.ec 01/07/17 Rifaximin [Xifaxan -] 550 mg PO BID #60 tablet 01/07/17 Family Disease History - Family Disease History Family Disease History: Heart Disease: Father (OPEN HEART SX,), CA: Mother (BREAST CANCER,) Review of Systems - Review of Systems Constitutional: reports: No Symptoms Eyes: reports: No Symptoms HENT: reports: No Symptoms Cardiovascular: reports: No Symptoms Respiratory: reports: No Symptoms Gastrointestinal: reports: No Symptoms Genitourinary: reports: No Symptoms Neurological: reports: No Symptoms Endocrine: reports: No Symptoms Hematology/Lymphatic: reports: No Symptoms Psychiatric: reports: No Symptoms Vital Signs: Vital Signs Temperature 97.6 F 01/14/17 06:00 Pulse Rate 61 01/14/17 06:00 Respiratory Rate 20 01/14/17 06:00 Blood Pressure 78/41 01/14/17 06:00 O2 Sat by Pulse Oximetry (%) 94 L 01/13/17 20:00 Constitutional: Yes: No Distress Eyes: Yes: Conjunctiva Clear, EOM Intact HENT: Yes: Atraumatic, Normocephalic Respiratory: Yes: CTA Bilaterally Gastrointestinal: Yes: Normal Bowel Sounds, Soft JVD: No Carotid Bruit: No PMI: Non-Displaced Heart Sounds: Yes: S1, S2 Murmur: No: Systolic Murmur Edema: No Neurological: Yes: Alert, Oriented, Cran Nerves II-XII Intact - Other Data Labs, Other Data: CBC, BMP 01/14/17 06:30 01/14/17 06:30 Troponin, BNP 01/13/17 01/14/17 20:15 06:30 Troponin I 0.06 H 0.05 Troponin, BNP 01/13/17 01/14/17 20:15 06:30 Troponin I 0.06 H 0.05 Atrial paced rhythm with non-specific ST-T abnormalities Imaging - Results Chest X-ray: Report Reviewed (01/14/17 CXR: Right pleural effusion. Left lung field clear. No change from), Image Reviewed Assessment/Plan 56 yo male with HTN, DM (insulin dependent), COPD, CAD with multiple reported MIs, reported stents x4 at [facility] (no details available), pacemaker, Hep C cirrhosis/ESLD w/ portal HTN/esophageal varices/ascites, low-grade B-cell lymphoma, h/o hepatic hydrothorax with prior thoracentesis and chest tube, h/o severe GI bleed due to gastric varices. Cardiology consulted for minimal troponin elevation of 0.06 -> 0.05, in the setting of renal failure with Cr 2.2 -> 2.1. Denies any chest pain or dyspnea at this time. ECG demonstrated atrial paced rhythm with non-specific ST-T abnormalities. No clinical evidence or symptoms to suggest ACS/PA or CHF. No further cardiac work-up or intervention is indicated. Will prn. Please call with specific questions.
--- NOTE | 2017-01-14 12:35 | CONSULT ---
Consult - text type - Consultation Consultation Note: Renal Consult for SHANKAR on CKD This is a 56 year old woman with PMhx of Hepatitis C with ESLD, CKD (Cr 1.5-17) , CAD, DM who presented with AMS and admitted for hepatic encehlopathy and noted to have BUN/Cr of 58/2.2. Pt cannot recall why he is in the hosptial. He is oriented x 3. Denies any pain or sob. Denies any change in urine output. No Abd pain. + Ascities. No flank pain. Denies any NSAID use. No recent contrast exposure. PMhx: as above Allergies: NKDA Family Hx: NC Social Hx: No T ROS: as per HPI, all other ROS negative Home Meds: Home Medications Medication Instructions Recorded Albuterol 2.5/Ipratropium 0.5 1 amp NEB Q6H PRN #120 amp 10/25/16 [Duoneb -] Methadone [Dolophine -] 10 mg PO DAILY 11/05/16 Rifaximin [Xifaxan -] 550 mg PO BID #20 tablet 12/31/16 Furosemide [Lasix -] 60 mg PO DAILY #90 tablet 01/07/17 Gabapentin [Neurontin -] 100 mg PO BID #60 capsule 01/07/17 Insulin (Levemir) [Levemir Vial] 15 units SQ HS ml 01/07/17 Insulin (Levemir) [Levemir Vial] 25 units SQ AM ml 01/07/17 Lactulose (Oral Use) [Cephulac -] 20 gm PO QID #2400 gr 01/07/17 Metoprolol Tartrate [Lopressor -] 25 mg PO BID #60 tablet 01/07/17 Pantoprazole Sodium [Protonix -] 40 mg PO DAILY #30 tablet.ec 01/07/17 Rifaximin [Xifaxan -] 550 mg PO BID #60 tablet 01/07/17 Vital Signs Temperature 97.6 F 01/14/17 06:00 Pulse Rate 61 01/14/17 06:00 Respiratory Rate 20 01/14/17 06:00 Blood Pressure 78/41 01/14/17 06:00 O2 Sat by Pulse Oximetry (%) 94 L 01/13/17 20:00 Intake & Output 01/11/17 01/12/17 01/13/17 01/14/17 23:59 23:59 23:59 23:59 Intake Total 0 220 Balance 0 220 Weight 240 lb Gen: NAD, awake and alert HEENT: NC/AT, Dry MM CVS: RRR, No M/R Lungs: dec BS at lung bases, no rales Abd: soft NT/ND Ext: No edema, clubbing or cyanosis : No bladder distension Neuro: AAOx3, + mild asterxis CBC, BMP 01/14/17 06:30 01/14/17 06:30 Laboratory Tests 01/13/17 01/14/17 01/14/17 17:30 06:30 06:30 Calcium 7.6 L Total Bilirubin 1.0 AST 34 D ALT 31 Alkaline Phosphatase 187 H Ammonia 175.12 H Albumin 2.0 L Urine Protein Negative Urine Glucose (UA) 2+ H Urine Blood 2+ H Current Medications Albuterol/Ipratropium (Duoneb -) 1 amp NEB Q6H PRN PRN Reason: SHORTNESS OF BREATH Gabapentin (Neurontin -) 100 mg PO BID [facility] Last Admin: 01/14/17 09:31 Dose: 100 mg Potassium Chloride/Sodium Chloride (1/2ns+20meq Kcl) 1,000 mls @ 75 mls/hr IV ASDIR [facility] Last Admin: 01/14/17 09:29 Dose: 75 mls/hr Insulin Aspart (Novolog Vial Sliding Scale -) 1 vial SQ ACHS [facility] PRN Reason: Protocol Last Admin: 01/14/17 12:25 Dose: Not Given Lactulose (Cephulac (Oral Use)) 20 gm PO QID [facility] Last Admin: 01/14/17 09:30 Dose: 20 gm Methadone HCl (Dolophine -) 10 mg PO DAILY [facility] Last Admin: 01/14/17 09:30 Dose: Not Given Metoprolol Tartrate (Lopressor -) 25 mg PO BID [facility] Last Admin: 01/14/17 00:35 Dose: 25 mg Pantoprazole Sodium (Protonix -) 40 mg PO DAILY [facility] Last Admin: 01/14/17 09:31 Dose: 40 mg Rifaximin (Xifaxan -) 550 mg PO BID [facility] Last Admin: 01/14/17 09:31 Dose: 550 mg A/P 56 year old woman with PMhx of Hepatitis C with ESLD, CKD (Cr 1.5-17), CAD, DM who presented with AMS and admitted for hepatic encehlopathy and noted to have BUN/Cr of 58/2.2. #Acute on Chronic Renal Insufficiency Etiology likely due to hypovolemia from true volume depletion vs. Hepato-renal syndrome Check FeNa, FeUrea, UPCR Renal US to r/o obstruction Will attempt volume expansion with isotonic saline for 24 hours, if no improvement or worsening swelling can attempt expansion with IV albumin in combination with Octreotide and Midodrine. 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
[2017-01-14] MEDS ORDERED: SODIUM CHLORIDE 1,000 ML IV SCH (12:45)
--- NOTE | 2017-01-14 17:10 | EKG ---
Test Reason : Blood Pressure : / mmHG Vent. Rate : 062 BPM Atrial Rate : 062 BPM P-R Int : 206 ms QRS Dur : 080 ms QT Int : 470 ms P-R-T Axes : 000 -24 151 degrees QTc Int : 477 ms POOR DATA QUALITY, INTERPRETATION MAY BE ADVERSELY AFFECTED Atrial-paced rhythm WITH PREMATURE SUPRAVENTRICULAR COMPLEXES INFERIOR INFARCT (CITED ON OR BEFORE 07-DEC-2016) ABNORMAL ECG WHEN COMPARED WITH ECG OF 31-DEC-2016 09:39, ELECTRONIC ATRIAL PACEMAKER HAS REPLACED SINUS RHYTHM SERIAL CHANGES OF INFERIOR INFARCT PRESENT Confirmed by EDWARD FELTON MD ([id number]) on 01/14/2017 5:09:50 PM Referred By: Confirmed By:EDWARD FELTON MD
[2017-01-14] MEDS ORDERED: METHADONE HCL 10 MG TABLET PO ONE (21:00)
[2017-01-14] MEDS ORDERED: HYDROmorphone HCL CARPU-JECT 2 MG/1 ML DISP.SYRIN IVPB ONE (23:45)
[2017-01-15] MEDS: INSULIN SLIDING SCALE (NOVOLOG) 1 VIAL SQ SCH ×4 (06:05→21:00)
[2017-01-15 08:00] LABS: BASOPHIL 0.7 % (0-2.0); EOSINOPHIL 2.8 % (0-4.5); MCH 33.6 pg (25.7-33.7); MCHC 34.4 g/dl (32.0-35.9); MEAN CELL VOLUME 97.6 fl (80-96); MEAN PLT VOLUME 10.3 fl (7.5-11.1); NEUTROPHILS 69.8 % (42.8-82.8); WHITE BLOOD COUNT 5.2 K/mm3 (4.0-10.0)
[2017-01-15 08:02] LABS: PLATELET COUNT 30 K/MM3 (134-434)
[2017-01-15 08:33] LABS: ALBUMIN 1.9 g/dl (3.4-5.0); BILIRUBIN,TOTAL 0.8 mg/dL (0.2-1.0); CALCIUM 7.4 mg/dL (8.5-10.1); MAGNESIUM 2.1 mg/dL (1.8-2.4); PHOSPHOROUS 2.3 mg/dL (2.5-4.9); TOT PROT 6.4 g/dl (6.4-8.2)
--- NOTE | 2017-01-15 08:48 | PN ---
Progress Note, Physician History of Present Illness: GROGGY TODAY - Current Medication List Current Medications: Active Medications Albuterol/Ipratropium (Duoneb -) 1 amp NEB Q6H PRN PRN Reason: SHORTNESS OF BREATH Gabapentin (Neurontin -) 100 mg PO BID [facility] Last Admin: 01/14/17 21:45 Dose: 100 mg Sodium Chloride (Normal Saline -) 1,000 mls @ 83 mls/hr IV ASDIR [facility] Last Admin: 01/14/17 17:37 Dose: 83 mls/hr Insulin Aspart (Novolog Vial Sliding Scale -) 1 vial SQ ACHS [facility] PRN Reason: Protocol Last Admin: 01/15/17 06:05 Dose: 10 units Lactulose (Cephulac (Oral Use)) 20 gm PO QID [facility] Last Admin: 01/14/17 21:46 Dose: 20 gm Methadone HCl (Dolophine -) 10 mg PO DAILY [facility] Last Admin: 01/14/17 09:30 Dose: Not Given Metoprolol Tartrate (Lopressor -) 25 mg PO BID [facility] Last Admin: 01/14/17 00:35 Dose: 25 mg Pantoprazole Sodium (Protonix -) 40 mg PO DAILY [facility] Last Admin: 01/14/17 09:31 Dose: 40 mg Rifaximin (Xifaxan -) 550 mg PO BID [facility] Last Admin: 01/14/17 21:44 Dose: 550 mg - Objective Vital Signs: Vital Signs Temperature 98.3 F 01/15/17 06:00 Pulse Rate 73 01/15/17 06:00 Respiratory Rate 18 01/15/17 06:00 Blood Pressure 106/56 01/15/17 06:00 O2 Sat by Pulse Oximetry (%) 95 01/14/17 22:00 Cardiovascular: Yes: Regular Rate and Rhythm Respiratory: Yes: Diminished Gastrointestinal: Yes: Normal Bowel Sounds, Soft Neurological: Yes: Lethargy Labs: CBC, BMP 01/15/17 06:30 01/15/17 06:30 Problem List - Problems (1) Acute kidney injury superimposed on CKD Assessment/Plan: HOLD LASIX AND ALDACTONE FOLLOW LABS Code(s): N17.9 - ACUTE KIDNEY FAILURE, UNSPECIFIED N18.9 - CHRONIC KIDNEY DISEASE, UNSPECIFIED (2) Cirrhosis of liver Assessment/Plan: LACTULOSE MONITOR Code(s): K74.60 - UNSPECIFIED CIRRHOSIS OF LIVER Qualifiers: Hepatic cirrhosis type: unspecified hepatic cirrhosis Ascites presence : with ascites Qualified Code(s): K74.60 - Unspecified cirrhosis of liver (3) Type 2 diabetes mellitus with other diabetic neurological complication Assessment/Plan: BGM ENDO Code(s): E11.49 - TYPE 2 DIABETES W OTH DIABETIC NEUROLOGICAL COMPLICATION (4) Altered mental status Assessment/Plan: MONITOR INCREASE LACTULOSE Code(s): R41.82 - ALTERED MENTAL STATUS, UNSPECIFIED Qualifiers: Altered mental status type: disorientation Qualified Code(s): R41.0 - Disorientation, unspecified (5) DVT (deep venous thrombosis) Assessment/Plan: UNABLE TO AC DUE TO PLAT Code(s): I82.409 - ACUTE EMBOLISM AND THOMBOS UNSP DEEP VN UNSP LOWER EXTREMITY Qualifiers: DVT location: lower extremity Affected thrombotic vein of extremity: femoral Laterality: left Chronicity: acute Qualified Code(s): I82.412 - Acute embolism and thrombosis of left femoral vein (7) Pleural effusion associated with hepatic disorder Assessment/Plan: PLEUREX IN PLACE Code(s): K76.9 - LIVER DISEASE, UNSPECIFIED J91.8 - PLEURAL EFFUSION IN OTHER CONDITIONS CLASSIFIED ELSEWHERE
[2017-01-15] MEDS ORDERED: PT OWN MED DRAWER 7, Y5N ONE (09:25)
[2017-01-15] MEDS: PANTOPRAZOLE 40 MG TABLET (FP) PO SCH (09:44)
[2017-01-15] MEDS: METHADONE HCL 10 MG TABLET PO SCH ×2 (09:44→21:01)
[2017-01-15] MEDS: LACTULOSE 20 GM/30 ML UDC (FOR ORAL USE ONLY) PO SCH ×4 (09:45→21:01)
[2017-01-15] MEDS: RIFAXIMIN 550 MG TABLET (UD) PO SCH ×2 (09:45→21:01)
[2017-01-15] MEDS: GABAPENTIN 100 MG CAPSULE (FP) PO SCH ×2 (09:45→21:00)
[2017-01-15] MEDS ORDERED: INSULIN (NOVOLOG) ASPART 100 UNITS/ML 10ML VIAL ONE (11:31)
--- NOTE | 2017-01-15 12:53 | PN ---
Progress Note (short form) - Note Progress Note: Renal follow up for SHANKAR on CKD Pt seen and examined at the bedside no acute complaints more awake and alert today no sob or chest pain IVF held this am Vital Signs Temperature 98.3 F 01/15/17 10:00 Pulse Rate 76 01/15/17 10:00 Respiratory Rate 20 01/15/17 10:00 Blood Pressure 121/65 01/15/17 10:00 O2 Sat by Pulse Oximetry (%) 96 01/15/17 09:00 Intake & Output 01/12/17 01/13/17 01/14/17 01/15/17 23:59 23:59 23:59 23:59 Intake Total 0 1062 1929 Output Total 550 Balance 0 1062 1379 Weight 240 lb Gen: NAD, awake and alert CVS: RRR, No M/R Lungs: dec BS at lung bases Abd: soft NT/ND Ext: Trace edema in LE CBC, BMP 01/15/17 06:30 01/15/17 06:30 Laboratory Tests 01/15/17 01/15/17 06:30 06:30 Creat Clearance w eGFR 34.74 Calcium 7.4 L Phosphorus 2.3 L D Magnesium 2.1 Ammonia 269.77 H Albumin 1.9 L Current Medications Albuterol/Ipratropium (Duoneb -) 1 amp NEB Q6H PRN PRN Reason: SHORTNESS OF BREATH Gabapentin (Neurontin -) 100 mg PO BID [facility] Last Admin: 01/15/17 09:45 Dose: 100 mg Insulin Aspart (Novolog Vial Sliding Scale -) 1 vial SQ ACHS [facility] PRN Reason: Protocol Last Admin: 01/15/17 11:32 Dose: 7 units Lactulose (Cephulac (Oral Use)) 30 gm PO Q4H [facility] Methadone HCl (Dolophine -) 10 mg PO DAILY [facility] Last Admin: 01/15/17 09:44 Dose: 10 mg Metoprolol Tartrate (Lopressor -) 25 mg PO BID [facility] Last Admin: 01/14/17 00:35 Dose: 25 mg Pantoprazole Sodium (Protonix -) 40 mg PO DAILY [facility] Last Admin: 01/15/17 09:44 Dose: 40 mg Potassium Phos/Sodium Phos (Phos-Nak Packet -) 1 packet PO TID [facility] Stop: 01/17/17 06:01 Rifaximin (Xifaxan -) 550 mg PO BID [facility] Last Admin: 01/15/17 09:45 Dose: 550 mg A/P 56 year old woman with PMhx of Hepatitis C with ESLD, CKD (Cr 1.5-17), CAD, DM who presented with AMS and admitted for hepatic encehlopathy and noted to have BUN/Cr of 58/2.2. #Acute on Chronic Renal Insufficiency Etiology likely due to hypovolemia from true volume depletion vs. Hepato-renal syndrome Renal function is stable/modestly improved today off IVF, monitor Cr levels if stable no indication for Albumin/Midodrine oral PO fluid and solute intake as tolerated #Hepatic Encephlopathy/ESLD/Hep C continue Lactulose Trend Ammonia levels #Hypophosphatemia Give PO neutra PO x 6 doses #Thrombocytopenia likely related to Liver disease trend daily #Anemia Trend CBC no acute indication for transfusion at this time Flako Dobson DO
[2017-01-15] MEDS: NAPH,MB-DB/K PH,MBDB POWDER PACKET PO SCH ×2 (14:58→21:00)
[2017-01-16] MEDS: LACTULOSE 20 GM/30 ML UDC (FOR ORAL USE ONLY) PO SCH ×6 (01:18→21:02)
[2017-01-16] MEDS: NAPH,MB-DB/K PH,MBDB POWDER PACKET PO SCH ×3 (06:32→21:04)
[2017-01-16] MEDS: INSULIN SLIDING SCALE (NOVOLOG) 1 VIAL SQ SCH ×4 (06:35→22:45)
[2017-01-16 07:32] LABS: BASOPHIL 0.5 % (0-2.0); EOSINOPHIL 2.4 % (0-4.5); MCH 33.5 pg (25.7-33.7); MCHC 34.1 g/dl (32.0-35.9); MEAN CELL VOLUME 98.2 fl (80-96); MEAN PLT VOLUME 10.9 fl (7.5-11.1); NEUTROPHILS 70.7 % (42.8-82.8); RDW 16.1 % (11.9-15.9); WHITE BLOOD COUNT 5.1 K/mm3 (4.0-10.0)
[2017-01-16 07:56] LABS: ALBUMIN 2.1 g/dl (3.4-5.0); CALCIUM 7.7 mg/dL (8.5-10.1); MAGNESIUM 2.1 mg/dL (1.8-2.4); PHOSPHOROUS 2.6 mg/dL (2.5-4.9)
[2017-01-16 07:58] LABS: BILIRUBIN,TOTAL 1.1 mg/dL (0.2-1.0); TOT PROT 6.8 g/dl (6.4-8.2)
[2017-01-16 08:08] LABS: PLATELET COUNT 32 K/MM3 (134-434)
[2017-01-16] MEDS ORDERED: PT OWN MED DRAWER 7, Y5N ONE (09:57)
[2017-01-16] MEDS: PANTOPRAZOLE 40 MG TABLET (FP) PO SCH (09:58)
[2017-01-16] MEDS: METHADONE HCL 10 MG TABLET PO SCH ×2 (09:58→21:01)
[2017-01-16] MEDS: GABAPENTIN 100 MG CAPSULE (FP) PO SCH ×2 (09:58→21:01)
[2017-01-16] MEDS: RIFAXIMIN 550 MG TABLET (UD) PO SCH ×2 (09:59→21:05)
--- NOTE | 2017-01-16 11:11 | PN ---
Progress Note, Physician Chief Complaint: LOOKS FRAIL vs PAST ADMISSIONS EMOTIONAL C/O PAIN - Current Medication List Current Medications: Active Medications Albuterol/Ipratropium (Duoneb -) 1 amp NEB Q6H PRN PRN Reason: SHORTNESS OF BREATH Gabapentin (Neurontin -) 100 mg PO BID [facility] Last Admin: 01/16/17 09:58 Dose: 100 mg Insulin Aspart (Novolog Vial Sliding Scale -) 1 vial SQ ACHS [facility] PRN Reason: Protocol Last Admin: 01/16/17 06:35 Dose: 10 units Lactulose (Cephulac (Oral Use)) 30 gm PO Q4H [facility] Last Admin: 01/16/17 09:58 Dose: 30 gm Methadone HCl (Dolophine -) 10 mg PO BID [facility] Last Admin: 01/16/17 09:58 Dose: 10 mg Metoprolol Tartrate (Lopressor -) 25 mg PO BID [facility] Last Admin: 01/14/17 00:35 Dose: 25 mg Pantoprazole Sodium (Protonix -) 40 mg PO DAILY [facility] Last Admin: 01/16/17 09:58 Dose: 40 mg Potassium Phos/Sodium Phos (Phos-Nak Packet -) 1 packet PO TID [facility] Stop: 01/17/17 06:01 Last Admin: 01/16/17 06:32 Dose: 1 packet Rifaximin (Xifaxan -) 550 mg PO BID [facility] Last Admin: 01/16/17 09:59 Dose: 550 mg - Objective Vital Signs: Vital Signs Temperature 98.5 F 01/16/17 06:00 Pulse Rate 887 H 01/16/17 06:00 Respiratory Rate 18 01/16/17 06:00 Blood Pressure 136/80 01/16/17 06:00 O2 Sat by Pulse Oximetry (%) 95 01/15/17 22:00 Neck: Yes: WNL Cardiovascular: Yes: WNL Respiratory: Yes: WNL Gastrointestinal: Yes: Distention Labs: CBC, BMP 01/16/17 06:05 01/16/17 06:05 Problem List - Problems (1) Opiate dependence Code(s): F11.20 - OPIOID DEPENDENCE, UNCOMPLICATED Qualifiers: Substance use status: with unspecified opioid-induced disorder Qualified Code(s): F11.29 - Opioid dependence with unspecified opioid-induced disorder (2) Acute kidney injury superimposed on CKD Code(s): N17.9 - ACUTE KIDNEY FAILURE, UNSPECIFIED N18.9 - CHRONIC KIDNEY DISEASE, UNSPECIFIED (3) Cirrhosis of liver Code(s): K74.60 - UNSPECIFIED CIRRHOSIS OF LIVER Qualifiers: Hepatic cirrhosis type: unspecified hepatic cirrhosis Ascites presence : with ascites Qualified Code(s): K74.60 - Unspecified cirrhosis of liver (4) CKD (chronic kidney disease) Code(s): N18.9 - CHRONIC KIDNEY DISEASE, UNSPECIFIED Qualifiers: (5) DM Diabetes mellitus type 2 Code(s): E11.9 - TYPE 2 DIABETES MELLITUS WITHOUT COMPLICATIONS Assessment/Plan (1) Acute kidney injury superimposed on CKD Assessment/Plan: HOLD LASIX AND ALDACTONE FOLLOW LABS RENAL ON CASE Code(s): N17.9 - ACUTE KIDNEY FAILURE, UNSPECIFIED N18.9 - CHRONIC KIDNEY DISEASE, UNSPECIFIED (2) Cirrhosis of liver Assessment/Plan: LACTULOSE MONITOR AMMONIA Code(s): K74.60 - UNSPECIFIED CIRRHOSIS OF LIVER Qualifiers: Hepatic cirrhosis type: unspecified hepatic cirrhosis Ascites presence : with ascites Qualified Code(s): K74.60 - Unspecified cirrhosis of liver (3) Type 2 diabetes mellitus with other diabetic neurological complication Assessment/Plan: BGM ENDO ON CASE LEVERMIR RESTARTED Code(s): E11.49 - TYPE 2 DIABETES W OTH DIABETIC NEUROLOGICAL COMPLICATION (4) Altered mental status Assessment/Plan: MONITOR INCREASE LACTULOSE Code(s): R41.82 - ALTERED MENTAL STATUS, UNSPECIFIED Qualifiers: Altered mental status type: disorientation Qualified Code(s): R41.0 - Disorientation, unspecified (5) DVT (deep venous thrombosis) Assessment/Plan: UNABLE TO AC DUE TO PLAT PLT 30s -> MONITOR Code(s): I82.409 - ACUTE EMBOLISM AND THOMBOS UNSP DEEP VN UNSP LOWER EXTREMITY Qualifiers: DVT location: lower extremity Affected thrombotic vein of extremity: femoral Laterality: left Chronicity: acute Qualified Code(s): I82.412 - Acute embolism and thrombosis of left femoral vein (7) Pleural effusion associated with hepatic disorder Assessment/Plan: PLEUREX IN PLACE Code(s): K76.9 - LIVER DISEASE, UNSPECIFIED J91.8 - PLEURAL EFFUSION IN OTHER CONDITIONS CLASSIFIED ELSEWHERE (8) Opiate dependence Code(s): F11.20 - OPIOID DEPENDENCE, UNCOMPLICATED Qualifiers: Substance use status: with unspecified opioid-induced disorder Qualified Code(s): F11.29 - Opioid dependence with unspecified opioid-induced disorder 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
[2017-01-16] MEDS ORDERED: INSULIN (NOVOLOG) ASPART 100 UNITS/ML 10ML VIAL ONE ×2 (12:06→18:46)
--- NOTE | 2017-01-16 12:51 | PN ---
Progress Note (short form) - Note Progress Note: Renal follow up for SHANKAR on CKD Pt seen and examined at the bedside no acute complaints appear much better having ~3 BMs daily Vital Signs Temperature 98.5 F 01/16/17 06:00 Pulse Rate 887 H 01/16/17 06:00 Respiratory Rate 18 01/16/17 06:00 Blood Pressure 136/80 01/16/17 06:00 O2 Sat by Pulse Oximetry (%) 95 01/15/17 22:00 Intake & Output 01/13/17 01/14/17 01/15/17 01/16/17 23:59 23:59 23:59 23:59 Intake Total 0 1062 2969 200 Output Total 550 Balance 0 1062 2419 200 Weight 240 lb Gen: NAD, awake and alert CVS: RRR, No M/R Lungs: dec BS at lung bases Abd: soft NT/ND Ext: Trace edema in LE CBC, BMP 01/16/17 06:05 01/16/17 06:05 Laboratory Tests 01/16/17 06:05 Calcium 7.7 L Phosphorus 2.6 Magnesium 2.1 Albumin 2.1 L Current Medications Albuterol/Ipratropium (Duoneb -) 1 amp NEB Q6H PRN PRN Reason: SHORTNESS OF BREATH Gabapentin (Neurontin -) 100 mg PO BID [facility] Last Admin: 01/16/17 09:58 Dose: 100 mg Insulin Aspart (Novolog Vial Sliding Scale -) 1 vial SQ ACHS [facility] PRN Reason: Protocol Last Admin: 01/16/17 12:11 Dose: 14 units Insulin Detemir (Levemir Vial) 15 units SQ HS [facility] Insulin Detemir (Levemir Vial) 25 units SQ AM [facility] Lactulose (Cephulac (Oral Use)) 30 gm PO Q4H [facility] Last Admin: 01/16/17 09:58 Dose: 30 gm Methadone HCl (Dolophine -) 10 mg PO BID [facility] Last Admin: 01/16/17 09:58 Dose: 10 mg Metoprolol Tartrate (Lopressor -) 25 mg PO BID [facility] Last Admin: 01/14/17 00:35 Dose: 25 mg Pantoprazole Sodium (Protonix -) 40 mg PO DAILY [facility] Last Admin: 01/16/17 09:58 Dose: 40 mg Potassium Phos/Sodium Phos (Phos-Nak Packet -) 1 packet PO TID [facility] Stop: 01/17/17 06:01 Last Admin: 01/16/17 06:32 Dose: 1 packet Rifaximin (Xifaxan -) 550 mg PO BID [facility] Last Admin: 01/16/17 09:59 Dose: 550 mg A/P 56 year old woman with PMhx of Hepatitis C with ESLD, CKD (Cr 1.5-17), CAD, DM who presented with AMS and admitted for hepatic encehlopathy and noted to have BUN/Cr of 58/2.2. #Acute on Chronic Renal Insufficiency Etiology likely due to hypovolemia from true volume depletion vs. Hepato-renal syndrome Renal function improved and stable continue to trend off IVF #Hepatic Encephlopathy/ESLD/Hep C continue Lactulose (having 3 BMs daily) Trend Ammonia levels #Hypophosphatemia Give PO neutra PO x 6 doses #Thrombocytopenia likely related to Liver disease trend daily #Anemia Trend CBC no acute indication for transfusion at this time Flako Dobson DO
[2017-01-16] MEDS ORDERED: HYDROmorphone HCL 2 MG TABLET PO ONE (13:45)
[2017-01-16] MEDS ORDERED: INSULIN DETEMIR 100 UNITS/ML MDV SQ ONE (18:46)
[2017-01-16] MEDS ORDERED: INSULIN DETEMIR 100 UNITS/ML MDV SQ SCH (22:00)
[2017-01-17] MEDS: LACTULOSE 20 GM/30 ML UDC (FOR ORAL USE ONLY) PO SCH ×6 (01:18→21:44)
[2017-01-17] MEDS: NAPH,MB-DB/K PH,MBDB POWDER PACKET PO SCH (06:23)
[2017-01-17] MEDS: INSULIN SLIDING SCALE (NOVOLOG) 1 VIAL SQ SCH ×4 (06:26→21:46)
[2017-01-17] MEDS: INSULIN DETEMIR 100 UNITS/ML MDV SQ SCH (06:27)
[2017-01-17 07:34] LABS: BASOPHIL 0.7 % (0-2.0); EOSINOPHIL 3.7 % (0-4.5); MCH 33.7 pg (25.7-33.7); MCHC 34.5 g/dl (32.0-35.9); MEAN CELL VOLUME 97.7 fl (80-96); NEUTROPHILS 71.9 % (42.8-82.8); WHITE BLOOD COUNT 7.2 K/mm3 (4.0-10.0)
[2017-01-17 07:50] LABS: PLATELET COUNT 33 K/MM3 (134-434)
[2017-01-17 07:56] LABS: ALBUMIN 2.3 g/dl (3.4-5.0); CALCIUM 8.1 mg/dL (8.5-10.1); CREATININE 1.8 mg/dL (0.7-1.3); MAGNESIUM 2.1 mg/dL (1.8-2.4); PHOSPHOROUS 3.2 mg/dL (2.5-4.9)
[2017-01-17 07:59] LABS: BILIRUBIN,TOTAL 1.5 mg/dL (0.2-1.0); TOT PROT 7.6 g/dl (6.4-8.2)
[2017-01-17] MEDS: GABAPENTIN 100 MG CAPSULE (FP) PO SCH ×2 (09:15→21:47)
[2017-01-17] MEDS: METHADONE HCL 10 MG TABLET PO SCH (09:15)
[2017-01-17] MEDS: PANTOPRAZOLE 40 MG TABLET (FP) PO SCH (09:15)
[2017-01-17] MEDS: RIFAXIMIN 550 MG TABLET (UD) PO SCH ×2 (09:16→21:47)
--- NOTE | 2017-01-17 09:54 | PN ---
Progress Note, Physician Chief Complaint: ANXIOUS EMOTIONAL C/O R CHEST PAIN -> HAS R DRAIN C/O UNABLE TO SLEEP ALL NIGHT 2/2 PAIN REQUESTING PAIN Rx - Current Medication List Current Medications: Active Medications Albuterol/Ipratropium (Duoneb -) 1 amp NEB Q6H PRN PRN Reason: SHORTNESS OF BREATH Gabapentin (Neurontin -) 100 mg PO BID [facility] Last Admin: 01/17/17 09:15 Dose: 100 mg Insulin Aspart (Novolog Vial Sliding Scale -) 1 vial SQ ACHS [facility] PRN Reason: Protocol Last Admin: 01/17/17 06:26 Dose: 5 units Insulin Detemir (Levemir Vial) 15 units SQ HS [facility] Last Admin: 01/16/17 21:02 Dose: 15 units Insulin Detemir (Levemir Vial) 25 units SQ AM [facility] Last Admin: 01/17/17 06:27 Dose: 25 units Lactulose (Cephulac (Oral Use)) 30 gm PO Q4H [facility] Last Admin: 01/17/17 09:16 Dose: 30 gm Methadone HCl (Dolophine -) 10 mg PO BID [facility] Last Admin: 01/17/17 09:15 Dose: 10 mg Metoprolol Tartrate (Lopressor -) 25 mg PO BID [facility] Last Admin: 01/14/17 00:35 Dose: 25 mg Pantoprazole Sodium (Protonix -) 40 mg PO DAILY [facility] Last Admin: 01/17/17 09:15 Dose: 40 mg Rifaximin (Xifaxan -) 550 mg PO BID [facility] Last Admin: 01/17/17 09:16 Dose: 550 mg - Objective Vital Signs: Vital Signs Temperature 97.6 F 01/17/17 06:00 Pulse Rate 84 01/17/17 06:00 Respiratory Rate 20 01/17/17 06:00 Blood Pressure 138/93 01/17/17 06:00 O2 Sat by Pulse Oximetry (%) 96 01/16/17 21:00 Constitutional: Yes: Anxious Cardiovascular: Yes: WNL Respiratory: Yes: Diminished, Other (R CHEST DRAIN) Gastrointestinal: Yes: WNL Edema: No Labs: CBC, BMP 01/17/17 06:15 01/17/17 06:15 Problem List - Problems (1) Opiate dependence Code(s): F11.20 - OPIOID DEPENDENCE, UNCOMPLICATED Qualifiers: Substance use status: with unspecified opioid-induced disorder Qualified Code(s): F11.29 - Opioid dependence with unspecified opioid-induced disorder (2) Acute kidney injury superimposed on CKD Code(s): N17.9 - ACUTE KIDNEY FAILURE, UNSPECIFIED N18.9 - CHRONIC KIDNEY DISEASE, UNSPECIFIED (3) Cirrhosis of liver Code(s): K74.60 - UNSPECIFIED CIRRHOSIS OF LIVER Qualifiers: Hepatic cirrhosis type: unspecified hepatic cirrhosis Ascites presence : with ascites Qualified Code(s): K74.60 - Unspecified cirrhosis of liver (4) CKD (chronic kidney disease) Code(s): N18.9 - CHRONIC KIDNEY DISEASE, UNSPECIFIED Qualifiers: (5) DM Diabetes mellitus type 2 Code(s): E11.9 - TYPE 2 DIABETES MELLITUS WITHOUT COMPLICATIONS Assessment/Plan (1) Acute kidney injury superimposed on CKD Assessment/Plan: HOLD LASIX AND ALDACTONE FOLLOW LABS RENAL ON CASE Code(s): N17.9 - ACUTE KIDNEY FAILURE, UNSPECIFIED N18.9 - CHRONIC KIDNEY DISEASE, UNSPECIFIED (2) Cirrhosis of liver Assessment/Plan: LACTULOSE MONITOR AMMONIA -> IMPROVED MENTAL STATUS AT BASELINE Code(s): K74.60 - UNSPECIFIED CIRRHOSIS OF LIVER Qualifiers: Hepatic cirrhosis type: unspecified hepatic cirrhosis Ascites presence : with ascites Qualified Code(s): K74.60 - Unspecified cirrhosis of liver (3) Type 2 diabetes mellitus with other diabetic neurological complication Assessment/Plan: BGM ENDO ON CASE LEVERMIR RESTARTED Code(s): E11.49 - TYPE 2 DIABETES W OTH DIABETIC NEUROLOGICAL COMPLICATION (4) Altered mental status Assessment/Plan: MONITOR LACTULOSE AT BASELINE Code(s): R41.82 - ALTERED MENTAL STATUS, UNSPECIFIED Qualifiers: Altered mental status type: disorientation Qualified Code(s): R41.0 - Disorientation, unspecified (5) DVT (deep venous thrombosis) Assessment/Plan: UNABLE TO AC DUE TO PLAT PLT 30s -> MONITOR Code(s): I82.409 - ACUTE EMBOLISM AND THOMBOS UNSP DEEP VN UNSP LOWER EXTREMITY Qualifiers: DVT location: lower extremity Affected thrombotic vein of extremity: femoral Laterality: left Chronicity: acute Qualified Code(s): I82.412 - Acute embolism and thrombosis of left femoral vein (7) Pleural effusion associated with hepatic disorder Assessment/Plan: CXr SHOWS NO CHANGE C/O R CHEST PAIN -> CXr TO R/O NEW EFFUSION PULM CONSULT DILAUDID 1mg PO q 6 HOUR PRN Code(s): K76.9 - LIVER DISEASE, UNSPECIFIED J91.8 - PLEURAL EFFUSION IN OTHER CONDITIONS CLASSIFIED ELSEWHERE (8) Opiate dependence Code(s): F11.20 - OPIOID DEPENDENCE, UNCOMPLICATED Qualifiers: Substance use status: with unspecified opioid-induced disorder Qualified Code(s): F11.29 - Opioid dependence with unspecified opioid-induced disorder 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
[2017-01-17] MEDS ORDERED: INSULIN (NOVOLOG) ASPART 100 UNITS/ML 10ML VIAL ONE ×2 (12:01→17:54)
[2017-01-17] MEDS: HYDROmorphone HCL 2 MG TABLET PO PRN ×2 (12:11→19:24)
--- NOTE | 2017-01-17 13:27 | PN ---
Progress Note (short form) - Note Progress Note: PULMONARY CONSULTATION DICTATED 01/17/17 IMP DYSPNEA INCREASING R PLEURAL EFFUSION S/P PLEUR-X HEPATIC ENCEPHALOPATHY ASCITES ASHD S/P HI S/P PPM ACUTE ON CHRONIC RENAL FAILURE ASTHMA THROMBOCYTOPENIA PLAN PLEURAL FLUID DRAINAGE VIA PLEUR-X O2 DAILY WTS MONITOR RENAL FUNCTION,LYTES,CBC F/U CHEST X-RAY Problem List - Problems (1) Acute kidney injury superimposed on CKD Code(s): N17.9 - ACUTE KIDNEY FAILURE, UNSPECIFIED N18.9 - CHRONIC KIDNEY DISEASE, UNSPECIFIED (2) Cirrhosis of liver Code(s): K74.60 - UNSPECIFIED CIRRHOSIS OF LIVER Qualifiers: Hepatic cirrhosis type: unspecified hepatic cirrhosis Ascites presence : with ascites Qualified Code(s): K74.60 - Unspecified cirrhosis of liver (3) Hyperglycemia Code(s): R73.9 - HYPERGLYCEMIA, UNSPECIFIED (4) Portal hypertension Code(s): K76.6 - PORTAL HYPERTENSION (5) Type 2 diabetes mellitus with other diabetic neurological complication Code(s): E11.49 - TYPE 2 DIABETES W H DIABETIC NEUROLOGICAL COMPLICATION (6) Acute on chronic renal failure Code(s): N17.9 - ACUTE KIDNEY FAILURE, UNSPECIFIED N18.9 - CHRONIC KIDNEY DISEASE, UNSPECIFIED (7) Altered mental status Code(s): R41.82 - ALTERED MENTAL STATUS, UNSPECIFIED Qualifiers: Altered mental status type: disorientation Qualified Code(s): R41.0 - Disorientation, unspecified (8) Ascites Code(s): R18.8 - OTHER ASCITES Qualifiers: Ascites type: due to alcoholic cirrhosis Qualified Code(s): K70.31 - Alcoholic cirrhosis of liver with ascites (9) Esophageal varices Code(s): I85.00 - ESOPHAGEAL VARICES WITHOUT BLEEDING Qualifiers: Esophageal varices type: secondary Esophageal varices bleeding: without bleeding Qualified Code(s): I85.10 - Secondary esophageal varices without bleeding (10) Hepatic encephalopathy Code(s): K72.90 - HEPATIC FAILURE, UNSPECIFIED WITHOUT COMA (11) Hydrothorax Code(s): J94.8 - OTHER SPECIFIED PLEURAL CONDITIONS (12) Pleural effusion associated with hepatic disorder Code(s): K76.9 - LIVER DISEASE, UNSPECIFIED J91.8 - PLEURAL EFFUSION IN OTHER CONDITIONS CLASSIFIED ELSEWHERE (13) Thrombocytopenia Code(s): D69.6 - THROMBOCYTOPENIA, UNSPECIFIED
--- NOTE | 2017-01-17 15:09 | CONS ---
DATE OF CONSULTATION: 01/17/2017 REFERRING PHYSICIAN: Jag Thompson MD The patient is a 56-year-old white male known to me from previous hospitalization with past medical history of hepatitis C, end-stage liver disease with history of chronic kidney disease with a creatinine of 1.5 to 1.7, ASHD, diabetes, history of smoking years ago, admitted to [facility] with altered mental status secondary to hepatic encephalopathy. The patient was also noted on admission to have an ammonia level of 175. He also was noted to be with worsening renal function. The patient has a history of right pleural effusion, status post PleurX catheter. The patient has been complaining of increasing shortness of breath. He had a followup chest x-ray that revealed increasing right pleural effusion. He states that he has not had his catheter drained in approximately a week. He denies any chest pain, nausea, vomiting, diaphoresis. He denies any hemoptysis. PAST MEDICAL HISTORY: Again, includes end-stage liver disease with ascites, chronic kidney disease, ASHD, status post HI, status post stent, pacemaker, esophageal varices, low-grade B-cell lymphoma, history of GI bleed, chronic right pleural effusion, status post PleurX catheter, diabetes mellitus, and hepatitis C. SOCIAL HISTORY: History of smoking years ago, history of substance abuse years ago. No occupational exposures. CURRENT MEDICATIONS: Lactulose, rifaximin, Neurontin, DuoNeb, Lopressor, Levemir, Dilaudid, and Protonix. PHYSICAL EXAMINATION: General: The patient is a well-developed, well-nourished male, awake, alert, in no acute distress. Vital Signs: He is afebrile. Blood pressure 138/93, respiratory rate is 20, O2 saturation is 96% on room air. HEENT: Normocephalic, atraumatic. Neck: Supple. Heart: Regular with S1, S2. Chest: Diminished breath sounds on the right 3/4 up. Abdomen: Soft, positive ascites. Extremities: No cyanosis, edema. LABORATORIES: WBC is 7.2, hemoglobin 12.1, hematocrit 35, platelet count of 333 ,000. Blood gas pH 7.44, pCO2 of 40, pO2 of 71, bicarbonate of 27, and saturation of 95.5 on room air. Chemistries: BUN 48, creatinine 1.8. Lactate level is 1.4. Chest x-ray reveals increasing right pleural effusion. IMPRESSION: 1. Increasing dyspnea secondary to increasing right pleural effusion. 2. Hepatic encephalopathy, resolving. 3. End-stage liver disease with ascites. 4. Diabetes. PLAN: 1. Drainage PleurX catheter. 2. Supplemental O2, monitor chest x-ray, continued inhaled bronchodilators, daily weights. Consider Lasix and Aldactone. Thank you; will follow closely with you. GORDY COLEY M.D. [id number] MTDD
--- NOTE | 2017-01-17 16:09 | CONSULT ---
Consult Detox [facility] Reason for Current Admission/Consult: methadone maintenance Referred by:: Carmelo Pelaze MD - History History of Present Illness: Pt. is known to me from our OTP. He's currently on methadone 10mg daily because higher dose seems to cause AMS - History Source History Provided By: Patient, Medical Record - Alcohol/Substance Use Hx Alcohol Use: No - Past Medical History REIMBURSEMENT LIAISON: Yes: Other (history of hepatic encephalopathy) Cardio/Vascular: Yes: CAD (reported prior MIs -> stents x4 at [facility] in 1998), HTN , Other (PPM palcement at time of NH in 1998, abnl EKG witth old inferior NH) Pulmonary: Yes: COPD, Other (PLEURAL EFFUSION WITH PREVIOUS thoracentesis and chest tube) Gastrointestinal: Yes: Ascites, Diverticulitis, Esophageal Varices (This patient does NOT have varices), GI Bleed (s/p multiple blood transfusions), Other (gastric varices ) Hepatobiliary: Yes: Cirrhosis (ESLD), Hepatitis C, Other (PORTAL HYPERTENSION) Renal/: Yes: Renal Inusuff (CKD (baseline 0.9-1.1)) Psych: Yes: Addictions (hx of polysubstance abuse & IVDA on maintenance Methadone), Anxiety Endocrine: Yes: Diabetes Mellitus (insulin-dependent) - Past Surgical History Past Surgical History: Yes: Permanent Pacemaker ([employer]), Stent, Upper Endoscopy (with gastric varices/sclerotherapy) - Significant Medical Findings: Laboratory Last Values WBC 7.2 K/mm3 (4.0-10.0) D 01/17/17 06:15 RBC 3.60 M/mm3 (4.00-5.60) L 01/17/17 06:15 Hgb 12.1 GM/dL (11.7-16.9) D 01/17/17 06:15 Hct 35.2 % (35.4-49) L 01/17/17 06:15 MCV 97.7 fl (80-96) H 01/17/17 06:15 MCHC 34.5 g/dl (32.0-35.9) 01/17/17 06:15 RDW 16.0 % (11.9-15.9) H 01/17/17 06:15 Plt Count 33 K/MM3 (134-434) L* 01/17/17 06:15 MPV 10.0 fl (7.5-11.1) 01/17/17 06:15 Neutrophils % 71.9 % (42.8-82.8) 01/17/17 06:15 Lymphocytes % 14.4 % (8-40) 01/17/17 06:15 Monocytes % 9.3 % (3.8-10.2) 01/17/17 06:15 Eosinophils % 3.7 % (0-4.5) 01/17/17 06:15 Basophils % 0.7 % (0-2.0) 01/17/17 06:15 Puncture Site Left radial 01/13/17 14:46 ABG pH 7.44 (7.35-7.45) 01/13/17 14:46 ABG pCO2 at Pt Temp 40.7 mmHg (35-45) 01/13/17 14:46 ABG pO2 at Pt Temp 71.5 mmHg (80-100) L D 01/13/17 14:46 ABG HCO3 27.0 meq/L (22-26) H 01/13/17 14:46 ABG O2 Sat (Measured) 95.5 % (90-98.9) 01/13/17 14:46 ABG O2 Content 13.2 % vol (15-22) L 01/13/17 14:46 ABG Base Excess 3.0 meq/l (-2-2) H 01/13/17 14:46 Ponce Test Positive 01/13/17 14:46 Carboxyhemoglobin 3.2 gm% (0.5-2.0) H 01/13/17 14:46 Methemoglobin 0.3 % (0.4-1.5) L 01/13/17 14:46 O2 Delivery Device Room air 01/13/17 14:46 Oxygen Flow Rate 21% 01/13/17 14:46 Sodium 138 mmol/L (136-145) 01/17/17 06:15 Potassium 4.6 mmol/L (3.5-5.1) 01/17/17 06:15 Chloride 105 mmol/L (98-107) 01/17/17 06:15 Carbon Dioxide 26 mmol/L (21-32) 01/17/17 06:15 Anion Gap 7 (8-16) L 01/17/17 06:15 BUN 43 mg/dL (7-18) H 01/17/17 06:15 Creatinine 1.8 mg/dL (0.7-1.3) H 01/17/17 06:15 Creat Clearance w eGFR 39.23 (>60) 01/17/17 06:15 POC Glucometer 248 UNITS (()) 01/17/17 11:56 Random Glucose 272 mg/dL (74-106) H D 01/17/17 06:15 Lactic Acid 1.443 mmol/L (0.4-2.0) 01/13/17 14:31 Calcium 8.1 mg/dL (8.5-10.1) L 01/17/17 06:15 Phosphorus 3.2 mg/dL (2.5-4.9) D 01/17/17 06:15 Magnesium 2.1 mg/dL (1.8-2.4) 01/17/17 06:15 Total Bilirubin 1.5 mg/dL (0.2-1.0) H D 01/17/17 06:15 AST 37 U/L (15-37) 01/17/17 06:15 ALT 35 U/L (12-78) 01/17/17 06:15 Alkaline Phosphatase 243 U/L (45-117) H 01/17/17 06:15 Ammonia 41.59 umol/L (11-32) H 01/17/17 06:15 Creatine Kinase 192 IU/L (39-308) 01/14/17 06:30 Creatine Kinase Index 2.1 % (0.0-5.0) 01/14/17 06:30 CK-MB (CK-2) 3.108 ng/ml (0.5-3.6) 01/14/17 06:30 CK-MB (CK-2) Rel Index Cancelled 01/13/17 14:31 Troponin I 0.05 ng/ml (0.00-0.05) 01/14/17 06:30 Total Protein 7.6 g/dl (6.4-8.2) 01/17/17 06:15 Albumin 2.3 g/dl (3.4-5.0) L 01/17/17 06:15 Urine Color Yellow 01/13/17 17:30 Urine Appearance Clear 01/13/17 17:30 Urine pH 5.0 (5.0-8.0) 01/13/17 17:30 Ur Specific [place] 1.016 (1.001-1.035) 01/13/17 17:30 Urine Protein Negative (NEGATIVE) 01/13/17 17:30 Urine Glucose (UA) 2+ (NEGATIVE) H 01/13/17 17:30 Urine Ketones Negative (NEGATIVE) 01/13/17 17:30 Urine Blood 2+ (NEGATIVE) H 01/13/17 17:30 Urine Nitrite Negative (NEGATIVE) 01/13/17 17: Urine Bilirubin Negative (NEGATIVE) 01/13/17 17:30 Urine Urobilinogen Negative E.U./dl (0.2-1.0) 01/13/17 17:30 Ur Leukocyte Esterase Negative (NEGATIVE) 01/13/17 17:30 Urine RBC 7 /hpf (0-3) 01/13/17 17:30 Urine WBC None /hpf (3-5) 01/13/17 17:30 Ur Epithelial Cells Rare /hpf (FEW) 01/13/17 17: Urine Mucus Rare 01/13/17 17:30 U Random Total Protein 10 mg/dl (5-11.9) 01/14/17 22:00 Ur Random Sodium 23 MMOL/L 01/14/17 23:00 Ur Random Urea Nitrogn 902 mg/dL 01/14/17 22:00 Urine Creatinine 107.0 mg/dL 01/14/17 22:00 Opiates Screen Positive ng/ml (JBDCQX=724) 01/13/17 17:30 Methadone Screen Positive ng/ml (MXMDMS=096) 01/13/17 17:30 Barbiturate Screen Negative ng/ml (EAUHAQ=840) 01/13/17 17:30 Phencyclidine Screen Negative ng/ml (CUTOFF=25) 01/13/17 17:30 Ur Amphetamines Screen Negative ng/ml (SBWYLV=685) 01/13/17 17:30 MDMA (Ecstasy) Screen Negative ng/ml (PPRZRI=233) 01/13/17 17:30 Benzodiazepines Screen Positive ng/ml (QFHMJV=999) 01/13/17 17:30 Cocaine Screen Negative ng/ml (TPDLXA=443) 01/13/17 17:30 U Marijuana (THC) Screen Negative ng/ml (CUTOFF=50) 01/13/17 17:30 labs noted Assessment Plan - Diagnosis (1) Opioid dependence on agonist therapy Status: Acute - Plan Plan: Continue methadone 10mg po daily
[2017-01-17] MEDS ORDERED: INSULIN DETEMIR 100 UNITS/ML MDV SQ SCH (22:00)
[2017-01-18] MEDS: HYDROmorphone HCL 2 MG TABLET PO PRN ×3 (01:30→16:36)
[2017-01-18] MEDS: LACTULOSE 20 GM/30 ML UDC (FOR ORAL USE ONLY) PO SCH ×6 (01:32→22:03)
[2017-01-18] MEDS: INSULIN SLIDING SCALE (NOVOLOG) 1 VIAL SQ SCH ×4 (06:31→22:00)
[2017-01-18] MEDS: INSULIN DETEMIR 100 UNITS/ML MDV SQ SCH ×2 (06:31→22:00)
[2017-01-18 08:19] LABS: BASOPHIL 0.8 % (0-2.0); EOSINOPHIL 3.2 % (0-4.5); MCH 33.6 pg (25.7-33.7); MCHC 34.7 g/dl (32.0-35.9); MEAN CELL VOLUME 96.7 fl (80-96); NEUTROPHILS 68.5 % (42.8-82.8); PLATELET COUNT 52 K/MM3 (134-434); RDW 16.4 % (11.9-15.9); WHITE BLOOD COUNT 8.9 K/mm3 (4.0-10.0)
[2017-01-18 08:32] LABS: ALBUMIN 2.4 g/dl (3.4-5.0); CALCIUM 8.5 mg/dL (8.5-10.1); CREATININE 1.7 mg/dL (0.7-1.3)
[2017-01-18 08:34] LABS: BILIRUBIN,TOTAL 1.4 mg/dL (0.2-1.0); TOT PROT 8.3 g/dl (6.4-8.2)
[2017-01-18] MEDS ORDERED: PT OWN MED DRAWER 7, Y5N ONE ×2 (10:18→11:58)
[2017-01-18] MEDS: GABAPENTIN 100 MG CAPSULE (FP) PO SCH ×2 (10:20→22:03)
[2017-01-18] MEDS: METHADONE HCL 10 MG TABLET PO SCH (10:20)
[2017-01-18] MEDS: PANTOPRAZOLE 40 MG TABLET (FP) PO SCH (10:21)
[2017-01-18] MEDS: RIFAXIMIN 550 MG TABLET (UD) PO SCH ×2 (10:22→22:04)
--- NOTE | 2017-01-18 12:17 | PN ---
Progress Note, Physician Chief Complaint: complaining of pain at area of pleurex cath and when he takes a deep breath also noted to have DTI on his sacral area - Current Medication List Current Medications: Active Medications Albuterol/Ipratropium (Duoneb -) 1 amp NEB Q6H PRN PRN Reason: SHORTNESS OF BREATH Gabapentin (Neurontin -) 100 mg PO BID [facility] Last Admin: 01/18/17 10:20 Dose: 100 mg Hydromorphone HCl (Dilaudid -) 1 mg PO Q6H PRN PRN Reason: PAIN Last Admin: 01/18/17 08:35 Dose: 1 mg Insulin Aspart (Novolog Vial Sliding Scale -) 1 vial SQ ACHS [facility] PRN Reason: Protocol Last Admin: 01/18/17 11:38 Dose: Not Given Insulin Detemir (Levemir Vial) 25 units SQ AM [facility] Last Admin: 01/18/17 06:31 Dose: 25 units Insulin Detemir (Levemir Vial) 20 units SQ HS [facility] Last Admin: 01/17/17 21:46 Dose: 20 units Lactulose (Cephulac (Oral Use)) 30 gm PO Q4H [facility] Last Admin: 01/18/17 10:21 Dose: 30 gm Methadone HCl (Dolophine -) 10 mg PO DAILY [facility] Last Admin: 01/18/17 10:20 Dose: 10 mg Metoprolol Tartrate (Lopressor -) 25 mg PO BID [facility] Last Admin: 01/14/17 00:35 Dose: 25 mg Pantoprazole Sodium (Protonix -) 40 mg PO DAILY [facility] Last Admin: 01/18/17 10:21 Dose: 40 mg Rifaximin (Xifaxan -) 550 mg PO BID [facility] Last Admin: 01/18/17 10:22 Dose: 550 mg - Objective Vital Signs: Vital Signs Temperature 98.2 F 01/18/17 10:13 Pulse Rate 83 01/18/17 10:13 Respiratory Rate 24 01/18/17 10:13 Blood Pressure 125/85 01/18/17 10:13 O2 Sat by Pulse Oximetry (%) 97 01/17/17 21:00 Constitutional: Yes: Calm, Cachectic Neck: Yes: Trachea Midline Cardiovascular: Yes: Regular Rate and Rhythm, S1, S2 Respiratory: Yes: Diminished (on right side pleurex cath tenderness on palpation in area of tube in anterior chest wall) Gastrointestinal: Yes: Soft, Hernia Extremities: Yes: Other (chronic venous stasis changes of legs) Neurological: Yes: Alert, Oriented Labs: CBC, BMP 01/18/17 06:30 01/18/17 06:30 Problem List - Problems (1) Acute kidney injury superimposed on CKD Assessment/Plan: bun/cr improving Code(s): N17.9 - ACUTE KIDNEY FAILURE, UNSPECIFIED N18.9 - CHRONIC KIDNEY DISEASE, UNSPECIFIED (2) Cirrhosis of liver Assessment/Plan: rifaximin lactulose for elevated amonia- now trending down Code(s): K74.60 - UNSPECIFIED CIRRHOSIS OF LIVER Qualifiers: Hepatic cirrhosis type: unspecified hepatic cirrhosis Ascites presence : with ascites Qualified Code(s): K74.60 - Unspecified cirrhosis of liver (3) Hyperglycemia Assessment/Plan: bgm noted insulin dose adjusted Code(s): R73.9 - HYPERGLYCEMIA, UNSPECIFIED (4) Type 2 diabetes mellitus with other diabetic neurological complication Assessment/Plan: bgm insulin neurontin Code(s): E11.49 - TYPE 2 DIABETES W OTH DIABETIC NEUROLOGICAL COMPLICATION (5) METHADONE MAINTENANCE Assessment/Plan: methadone dr dumont saw the pateint same dose (6) Pleural effusion Assessment/Plan: pleurex in place s/p drain Code(s): J90 - PLEURAL EFFUSION, NOT ELSEWHERE CLASSIFIED (7) DVT (deep venous thrombosis) Assessment/Plan: no AC sec to low platelets has IVF filter Code(s): I82.409 - ACUTE EMBOLISM AND THOMBOS UNSP DEEP VN UNSP LOWER EXTREMITY Qualifiers: DVT location: lower extremity Affected thrombotic vein of extremity: femoral Laterality: left Chronicity: acute Qualified Code(s): I82.412 - Acute embolism and thrombosis of left femoral vein (8) Decubitus skin ulcer Assessment/Plan: wound care eval keep area clean of feces close to rectum silvadene Code(s): L89.90 - PRESSURE ULCER OF UNSPECIFIED SITE, UNSPECIFIED STAGE Qualifiers: Pressure ulcer location: buttock
--- NOTE | 2017-01-18 13:14 | PN ---
Progress Note, Physician History of Present Illness: PULMONARY ALERT,LESS DYSPNEIC S/P REMOVAL 1 LITER PLEURAL FLUID VIA PLEUR-X LAST NIGHT. - Current Medication List Current Medications: Active Medications Albuterol/Ipratropium (Duoneb -) 1 amp NEB Q6H PRN PRN Reason: SHORTNESS OF BREATH Gabapentin (Neurontin -) 100 mg PO BID [facility] Last Admin: 01/18/17 10:20 Dose: 100 mg Hydromorphone HCl (Dilaudid -) 1 mg PO Q6H PRN PRN Reason: PAIN Last Admin: 01/18/17 08:35 Dose: 1 mg Insulin Aspart (Novolog Vial Sliding Scale -) 1 vial SQ ACHS [facility] PRN Reason: Protocol Last Admin: 01/18/17 11:38 Dose: Not Given Insulin Detemir (Levemir Vial) 25 units SQ AM [facility] Last Admin: 01/18/17 06:31 Dose: 25 units Insulin Detemir (Levemir Vial) 25 units SQ HS [facility] Lactulose (Cephulac (Oral Use)) 30 gm PO Q4H [facility] Last Admin: 01/18/17 10:21 Dose: 30 gm Methadone HCl (Dolophine -) 10 mg PO DAILY [facility] Last Admin: 01/18/17 10:20 Dose: 10 mg Metoprolol Tartrate (Lopressor -) 25 mg PO BID [facility] Last Admin: 01/14/17 00:35 Dose: 25 mg Pantoprazole Sodium (Protonix -) 40 mg PO DAILY [facility] Last Admin: 01/18/17 10:21 Dose: 40 mg Rifaximin (Xifaxan -) 550 mg PO BID [facility] Last Admin: 01/18/17 10:22 Dose: 550 mg - Objective Vital Signs: Vital Signs Temperature 98.2 F 01/18/17 10:13 Pulse Rate 83 01/18/17 10:13 Respiratory Rate 24 01/18/17 10:13 Blood Pressure 125/85 01/18/17 10:13 O2 Sat by Pulse Oximetry (%) 97 01/17/17 21:00 Constitutional: Yes: Well Nourished, Calm Eyes: Yes: WNL HENT: Yes: WNL Cardiovascular: Yes: Regular Rate and Rhythm, S1, S2 Respiratory: Yes: Diminished Gastrointestinal: Yes: Normal Bowel Sounds, Soft, Ascites Extremities: Yes: WNL Edema: Yes Labs: CBC, BMP 01/18/17 06:30 01/18/17 06:30 Problem List - Problems (1) Acute kidney injury superimposed on CKD Code(s): N17.9 - ACUTE KIDNEY FAILURE, UNSPECIFIED N18.9 - CHRONIC KIDNEY DISEASE, UNSPECIFIED (2) Cirrhosis of liver Code(s): K74.60 - UNSPECIFIED CIRRHOSIS OF LIVER Qualifiers: Hepatic cirrhosis type: unspecified hepatic cirrhosis Ascites presence : with ascites Qualified Code(s): K74.60 - Unspecified cirrhosis of liver (3) Hyperglycemia Code(s): R73.9 - HYPERGLYCEMIA, UNSPECIFIED (4) Portal hypertension Code(s): K76.6 - PORTAL HYPERTENSION (5) Type 2 diabetes mellitus with other diabetic neurological complication Code(s): E11.49 - TYPE 2 DIABETES W OTH DIABETIC NEUROLOGICAL COMPLICATION (6) Acute on chronic renal failure Code(s): N17.9 - ACUTE KIDNEY FAILURE, UNSPECIFIED N18.9 - CHRONIC KIDNEY DISEASE, UNSPECIFIED (7) Altered mental status Code(s): R41.82 - ALTERED MENTAL STATUS, UNSPECIFIED Qualifiers: Altered mental status type: disorientation Qualified Code(s): R41.0 - Disorientation, unspecified (8) Ascites Code(s): R18.8 - OTHER ASCITES Qualifiers: Ascites type: due to alcoholic cirrhosis Qualified Code(s): K70.31 - Alcoholic cirrhosis of liver with ascites (9) Esophageal varices Code(s): I85.00 - ESOPHAGEAL VARICES WITHOUT BLEEDING Qualifiers: Esophageal varices type: secondary Esophageal varices bleeding: without bleeding Qualified Code(s): I85.10 - Secondary esophageal varices without bleeding (10) Hepatic encephalopathy Code(s): K72.90 - HEPATIC FAILURE, UNSPECIFIED WITHOUT COMA (11) Hydrothorax Code(s): J94.8 - OTHER SPECIFIED PLEURAL CONDITIONS (12) Pleural effusion associated with hepatic disorder Code(s): K76.9 - LIVER DISEASE, UNSPECIFIED J91.8 - PLEURAL EFFUSION IN OTHER CONDITIONS CLASSIFIED ELSEWHERE (13) Thrombocytopenia Code(s): D69.6 - THROMBOCYTOPENIA, UNSPECIFIED Assessment/Plan IMP DYSPNEA INCREASING R PLEURAL EFFUSION S/P PLEUR-X HEPATIC ENCEPHALOPATHY ASCITES ASHD S/P CA S/P PPM ACUTE ON CHRONIC RENAL FAILURE ASTHMA THROMBOCYTOPENIA PLAN PLEURAL FLUID DRAINAGE VIA PLEUR-X TODAY O2 DAILY WTS MONITOR RENAL FUNCTION,LYTES,CBC F/U CHEST X-RAY Problem List - Problems (1) Acute kidney injury superimposed on CKD Code(s): N17.9 - ACUTE KIDNEY FAILURE, UNSPECIFIED N18.9 - CHRONIC KIDNEY DISEASE, UNSPECIFIED (2) Cirrhosis of liver Code(s): K74.60 - UNSPECIFIED CIRRHOSIS OF LIVER Qualifiers: Hepatic cirrhosis type: unspecified hepatic cirrhosis Ascites presence : with ascites Qualified Code(s): K74.60 - Unspecified cirrhosis of liver (3) Hyperglycemia Code(s): R73.9 - HYPERGLYCEMIA, UNSPECIFIED (4) Portal hypertension Code(s): K76.6 - PORTAL HYPERTENSION (5) Type 2 diabetes mellitus with other diabetic neurological complication Code(s): E11.49 - TYPE 2 DIABETES W H DIABETIC NEUROLOGICAL COMPLICATION (6) Acute on chronic renal failure Code(s): N17.9 - ACUTE KIDNEY FAILURE, UNSPECIFIED N18.9 - CHRONIC KIDNEY DISEASE, UNSPECIFIED (7) Altered mental status Code(s): R41.82 - ALTERED MENTAL STATUS, UNSPECIFIED Qualifiers: Altered mental status type: disorientation Qualified Code(s): R41.0 - Disorientation, unspecified (8) Ascites Code(s): R18.8 - OTHER ASCITES Qualifiers: Ascites type: due to alcoholic cirrhosis Qualified Code(s): K70.31 - Alcoholic cirrhosis of liver with ascites (9) Esophageal varices Code(s): I85.00 - ESOPHAGEAL VARICES WITHOUT BLEEDING Qualifiers: Esophageal varices type: secondary Esophageal varices bleeding: without bleeding Qualified Code(s): I85.10 - Secondary esophageal varices without bleeding (10) Hepatic encephalopathy Code(s): K72.90 - HEPATIC FAILURE, UNSPECIFIED WITHOUT COMA (11) Hydrothorax Code(s): J94.8 - OTHER SPECIFIED PLEURAL CONDITIONS (12) Pleural effusion associated with hepatic disorder Code(s): K76.9 - LIVER DISEASE, UNSPECIFIED J91.8 - PLEURAL EFFUSION IN OTHER CONDITIONS CLASSIFIED ELSEWHERE (13) Thrombocytopenia Code(s): D69.6 - THROMBOCYTOPENIA, UNSPECIFIED
[2017-01-18] MEDS ORDERED: INSULIN (NOVOLOG) ASPART 100 UNITS/ML 10ML VIAL ONE ×2 (17:04→19:53)
--- NOTE | 2017-01-18 17:14 | PN ---
Progress Note (short form) - Note Progress Note: Renal follow up for SHANKAR on CKD Pt seen and examined at the bedside complains of diffuse body pain no sob or chest pain no Abd pain no N/V/D off IVF tolerating oral diet Vital Signs Temperature 98.4 F 01/18/17 14:02 Pulse Rate 98 H 01/18/17 14:02 Respiratory Rate 20 01/18/17 14:02 Blood Pressure 110/80 01/18/17 14:02 O2 Sat by Pulse Oximetry (%) 95 01/18/17 11:05 Intake & Output 01/15/17 01/16/17 01/17/17 01/18/17 23:59 23:59 23:59 23:59 Intake Total 2969 750 800 415 Output Total 550 600 500 Balance 2419 750 200 -85 Gen: NAD, awake and alert CVS: RRR, No M/R Lungs: dec BS at lung bases Abd: soft NT/ND Ext: Trace edema in LE CBC, BMP 01/18/17 06:30 01/18/17 06:30 Spironolactone (Aldactone -) 50 mg PO DAILY [facility] Last Admin: 01/18/17 09:04 Dose: 50 mg Current Medications Albuterol/Ipratropium (Duoneb -) 1 amp NEB Q6H PRN PRN Reason: SHORTNESS OF BREATH Gabapentin (Neurontin -) 100 mg PO BID [facility] Last Admin: 01/18/17 10:20 Dose: 100 mg Hydromorphone HCl (Dilaudid -) 1 mg PO Q6H PRN PRN Reason: PAIN Last Admin: 01/18/17 16:36 Dose: 1 mg Insulin Aspart (Novolog Vial Sliding Scale -) 1 vial SQ ACHS [facility] PRN Reason: Protocol Last Admin: 01/18/17 17:06 Dose: 2 units Insulin Detemir (Levemir Vial) 25 units SQ AM [facility] Last Admin: 01/18/17 06:31 Dose: 25 units Insulin Detemir (Levemir Vial) 25 units SQ HS [facility] Lactulose (Cephulac (Oral Use)) 30 gm PO Q4H [facility] Last Admin: 01/18/17 14:17 Dose: 30 gm Methadone HCl (Dolophine -) 10 mg PO DAILY [facility] Last Admin: 01/18/17 10:20 Dose: 10 mg Metoprolol Tartrate (Lopressor -) 25 mg PO BID [facility] Last Admin: 01/14/17 00:35 Dose: 25 mg Pantoprazole Sodium (Protonix -) 40 mg PO DAILY [facility] Last Admin: 01/18/17 10:21 Dose: 40 mg Rifaximin (Xifaxan -) 550 mg PO BID [facility] Last Admin: 01/18/17 10:22 Dose: 550 mg A/P 56 year old woman with PMhx of Hepatitis C with ESLD, CKD (Cr 1.5-17), CAD, DM who presented with AMS and admitted for hepatic encehlopathy and noted to have BUN/Cr of 58/2.2. #Acute on Chronic Renal Insufficiency Renal function now improved and stable near baseline off IVF currently holding diuretics, if BUN/Cr stable can reintroduce oral diuretics trend BUN/Cr avoid NSAIDs #Hepatic Encephlopathy/ESLD/Hep C continue Lactulose (having 3 BMs daily) Trend Ammonia levels Flako Dobson DO
[2017-01-18] MEDS ORDERED: HYDROmorphone HCL 2 MG TABLET PO ONE (19:15)
[2017-01-19] MEDS: LACTULOSE 20 GM/30 ML UDC (FOR ORAL USE ONLY) PO SCH ×6 (02:07→22:42)
[2017-01-19] MEDS: INSULIN SLIDING SCALE (NOVOLOG) 1 VIAL SQ SCH ×4 (06:21→22:43)
[2017-01-19] MEDS: INSULIN DETEMIR 100 UNITS/ML MDV SQ SCH ×2 (06:22→22:41)
[2017-01-19] MEDS: HYDROmorphone HCL 2 MG TABLET PO PRN ×3 (06:27→23:52)
[2017-01-19 08:41] LABS: BASOPHIL 0.6 % (0-2.0); EOSINOPHIL 3.4 % (0-4.5); MCH 33.3 pg (25.7-33.7); MEAN CELL VOLUME 97.8 fl (80-96); NEUTROPHILS 67.1 % (42.8-82.8); PLATELET COUNT 42 K/MM3 (134-434); WHITE BLOOD COUNT 6.6 K/mm3 (4.0-10.0)
[2017-01-19 09:41] LABS: ALBUMIN 2.4 g/dl (3.4-5.0); BILIRUBIN,TOTAL 1.4 mg/dL (0.2-1.0); CALCIUM 8.5 mg/dL (8.5-10.1); CREATININE 1.8 mg/dL (0.7-1.3); MAGNESIUM 2.1 mg/dL (1.8-2.4); PHOSPHOROUS 3.5 mg/dL (2.5-4.9); TOT PROT 8.1 g/dl (6.4-8.2)
[2017-01-19] MEDS ORDERED: PT OWN MED DRAWER 7, Y5N ONE ×2 (10:02→10:34)
[2017-01-19] MEDS: PANTOPRAZOLE 40 MG TABLET (FP) PO SCH (10:08)
[2017-01-19] MEDS: METHADONE HCL 10 MG TABLET PO SCH (10:08)
[2017-01-19] MEDS: GABAPENTIN 100 MG CAPSULE (FP) PO SCH ×2 (10:09→22:39)
[2017-01-19] MEDS: RIFAXIMIN 550 MG TABLET (UD) PO SCH ×2 (10:10→22:43)
--- NOTE | 2017-01-19 11:13 | PN ---
Progress Note (short form) - Note Progress Note: Renal follow up for SHANKAR on CKD Pt seen and examined at the bedside complains of pain around chest catheter site no sob or abd pain no N/v/D apatite is good, tolerating diet Vital Signs Temperature 98.2 F 01/19/17 10:06 Pulse Rate 91 H 01/19/17 10:06 Respiratory Rate 24 01/19/17 10:06 Blood Pressure 127/80 01/19/17 10:06 O2 Sat by Pulse Oximetry (%) 96 01/18/17 22:00 Intake & Output 01/16/17 01/17/17 01/18/17 01/19/17 23:59 23:59 23:59 23:59 Intake Total 750 800 865 415 Output Total 600 500 Balance 750 200 365 415 Weight 171 lb 8 oz Gen: NAD, awake and alert CVS: RRR, No M/R Lungs: dec BS at lung bases Abd: soft NT/ND Ext: Trace edema in LE CBC, BMP 01/19/17 06:20 01/19/17 06:20 Current Medications Albuterol/Ipratropium (Duoneb -) 1 amp NEB Q6H PRN PRN Reason: SHORTNESS OF BREATH Gabapentin (Neurontin -) 100 mg PO BID [facility] Last Admin: 01/19/17 10:09 Dose: 100 mg Hydromorphone HCl (Dilaudid -) 1 mg PO Q6H PRN PRN Reason: PAIN Last Admin: 01/19/17 06:27 Dose: 1 mg Insulin Aspart (Novolog Vial Sliding Scale -) 1 vial SQ ACHS [facility] PRN Reason: Protocol Last Admin: 01/19/17 06:21 Dose: Not Given Insulin Detemir (Levemir Vial) 25 units SQ AM [facility] Last Admin: 01/19/17 06:22 Dose: 25 units Insulin Detemir (Levemir Vial) 25 units SQ HS [facility] Last Admin: 01/18/17 22:00 Dose: 25 units Lactulose (Cephulac (Oral Use)) 30 gm PO QID [facility] Methadone HCl (Dolophine -) 10 mg PO DAILY [facility] Last Admin: 01/19/17 10:08 Dose: 10 mg Metoprolol Tartrate (Lopressor -) 25 mg PO BID [facility] Last Admin: 01/14/17 00:35 Dose: 25 mg Pantoprazole Sodium (Protonix -) 40 mg PO DAILY [facility] Last Admin: 01/19/17 10:08 Dose: 40 mg Rifaximin (Xifaxan -) 550 mg PO BID [facility] Last Admin: 01/19/17 10:10 Dose: 550 mg A/P 56 year old woman with PMhx of Hepatitis C with ESLD, CKD (Cr 1.5-17), CAD, DM who presented with AMS and admitted for hepatic encehlopathy and noted to have BUN/Cr of 58/2.2. #Acute on Chronic Renal Insufficiency Renal function now improved and stable Resume Lasix 60mg Daily tend BUN/Cr and electrolytes #Hepatic Encephlopathy/ESLD/Hep C continue Lactulose (having 3 BMs daily) #Right Pleural effusion chest tube in place, may warrant drainage Flako Dobson DO
--- NOTE | 2017-01-19 11:37 | PN ---
Progress Note, Physician Chief Complaint: s/p drainage of 500c ysterday got cxr still has pain at site of drain - Current Medication List Current Medications: Active Medications Albuterol/Ipratropium (Duoneb -) 1 amp NEB Q6H PRN PRN Reason: SHORTNESS OF BREATH Furosemide (Lasix -) 60 mg PO DAILY [facility] Gabapentin (Neurontin -) 100 mg PO BID [facility] Last Admin: 01/19/17 10:09 Dose: 100 mg Hydromorphone HCl (Dilaudid -) 1 mg PO Q6H PRN PRN Reason: PAIN Last Admin: 01/19/17 06:27 Dose: 1 mg Insulin Aspart (Novolog Vial Sliding Scale -) 1 vial SQ ACHS [facility] PRN Reason: Protocol Last Admin: 01/19/17 11:27 Dose: 5 units Insulin Detemir (Levemir Vial) 25 units SQ AM [facility] Last Admin: 01/19/17 06:22 Dose: 25 units Insulin Detemir (Levemir Vial) 25 units SQ HS [facility] Last Admin: 01/18/17 22:00 Dose: 25 units Lactulose (Cephulac (Oral Use)) 30 gm PO QID [facility] Methadone HCl (Dolophine -) 10 mg PO DAILY [facility] Last Admin: 01/19/17 10:08 Dose: 10 mg Metoprolol Tartrate (Lopressor -) 25 mg PO BID [facility] Last Admin: 01/14/17 00:35 Dose: 25 mg Pantoprazole Sodium (Protonix -) 40 mg PO DAILY [facility] Last Admin: 01/19/17 10:08 Dose: 40 mg Rifaximin (Xifaxan -) 550 mg PO BID [facility] Last Admin: 01/19/17 10:10 Dose: 550 mg - Objective Vital Signs: Vital Signs Temperature 98.2 F 01/19/17 10:06 Pulse Rate 91 H 01/19/17 10:06 Respiratory Rate 24 01/19/17 10:06 Blood Pressure 127/80 01/19/17 10:06 O2 Sat by Pulse Oximetry (%) 96 01/18/17 22:00 Constitutional: Yes: Calm, Thin Neck: Yes: Trachea Midline Cardiovascular: Yes: Regular Rate and Rhythm, S1, S2 Respiratory: Yes: CTA Bilaterally, Diminished (on right site pleurex drain removed ressing slight erythema at site of drain, tenderness on exam) Gastrointestinal: Yes: Soft, Ascites, Hernia Extremities: Yes: Other (chronic changes) Neurological: Yes: Alert, Oriented Labs: CBC, BMP 01/19/17 06:20 01/19/17 06:20 Problem List - Problems (1) Pleural effusion Assessment/Plan: pleurex in place s/p drain yesterday 500cc CT scan noted will start iv abx for possible cellulitis aroudn plerex tube site and possilble right lower lobe consolidation Code(s): J90 - PLEURAL EFFUSION, NOT ELSEWHERE CLASSIFIED (2) Acute kidney injury superimposed on CKD Assessment/Plan: bun/cr will monitor Code(s): N17.9 - ACUTE KIDNEY FAILURE, UNSPECIFIED N18.9 - CHRONIC KIDNEY DISEASE, UNSPECIFIED (3) Cirrhosis of liver Assessment/Plan: rifaximin lactulose for elevated amonia- now trending down Code(s): K74.60 - UNSPECIFIED CIRRHOSIS OF LIVER Qualifiers: Hepatic cirrhosis type: unspecified hepatic cirrhosis Ascites presence : with ascites Qualified Code(s): K74.60 - Unspecified cirrhosis of liver (4) Hyperglycemia Assessment/Plan: bgm noted insulin dose adjusted Code(s): R73.9 - HYPERGLYCEMIA, UNSPECIFIED (5) Type 2 diabetes mellitus with other diabetic neurological complication Assessment/Plan: bgm insulin neurontin Code(s): E11.49 - TYPE 2 DIABETES W OTH DIABETIC NEUROLOGICAL COMPLICATION (6) METHADONE MAINTENANCE Assessment/Plan: methadone dr dumont saw the pateint same dose (7) DVT (deep venous thrombosis) Assessment/Plan: no AC sec to low platelets has IVF filter Code(s): I82.409 - ACUTE EMBOLISM AND THOMBOS UNSP DEEP VN UNSP LOWER EXTREMITY Qualifiers: DVT location: lower extremity Affected thrombotic vein of extremity: femoral Laterality: left Chronicity: acute Qualified Code(s): I82.412 - Acute embolism and thrombosis of left femoral vein (8) Decubitus skin ulcer Code(s): L89.90 - PRESSURE ULCER OF UNSPECIFIED SITE, UNSPECIFIED STAGE Qualifiers: Pressure ulcer location: buttock
[2017-01-19] MEDS ORDERED: HYDROmorphone HCL 2 MG TABLET PO ONE (11:45)
[2017-01-19] MEDS: FUROSEMIDE 40 MG TABLET (FP) PO SCH (12:08)
[2017-01-19] MEDS: CEFTRIAXONE 50 ML IVPB SCH (12:08)
--- NOTE | 2017-01-19 12:25 | PN ---
Progress Note (short form) - Note Progress Note: PULMONARY c/o pain at pleur-x site. Drained 500mL yesterday. Last Vital Signs Temp Pulse Resp BP Pulse Ox 98.2 F 82 24 136/84 96 01/19/17 10:06 01/19/17 12:03 01/19/17 12:03 01/19/17 12:03 01/18/17 22:00 Gen: more cachectic Heart: RRR Lung: decreased breath sounds right base 2/3 up Abd: soft, distended, nontender, +ascites Ext: trace edema CBC, BMP 01/19/17 06:20 01/19/17 06:20 Active Medications Albuterol/Ipratropium (Duoneb -) 1 amp NEB Q6H PRN PRN Reason: SHORTNESS OF BREATH Furosemide (Lasix -) 60 mg PO DAILY [facility] Last Admin: 01/19/17 12:08 Dose: 60 mg Gabapentin (Neurontin -) 100 mg PO BID [facility] Last Admin: 01/19/17 10:09 Dose: 100 mg Hydromorphone HCl (Dilaudid -) 2 mg PO Q6H PRN PRN Reason: PAIN Ceftriaxone Sodium (Rocephin 1gm Ivpb (Pre-Docked)) 50 mls @ 100 mls/hr IVPB DAILY [facility] Last Admin: 01/19/17 12:08 Dose: 100 mls/hr Insulin Aspart (Novolog Vial Sliding Scale -) 1 vial SQ ACHS [facility] PRN Reason: Protocol Last Admin: 01/19/17 11:27 Dose: 5 units Insulin Detemir (Levemir Vial) 25 units SQ AM [facility] Last Admin: 01/19/17 06:22 Dose: 25 units Insulin Detemir (Levemir Vial) 25 units SQ HS [facility] Last Admin: 01/18/17 22:00 Dose: 25 units Lactulose (Cephulac (Oral Use)) 30 gm PO QID [facility] Methadone HCl (Dolophine -) 10 mg PO DAILY [facility] Last Admin: 01/19/17 10:08 Dose: 10 mg Metoprolol Tartrate (Lopressor -) 25 mg PO BID [facility] Last Admin: 01/14/17 00:35 Dose: 25 mg Pantoprazole Sodium (Protonix -) 40 mg PO DAILY [facility] Last Admin: 01/19/17 10:08 Dose: 40 mg Rifaximin (Xifaxan -) 550 mg PO BID [facility] Last Admin: 01/19/17 10:10 Dose: 550 mg A/P Liver Cirrhosis Pleural Effusion/Hepatic Hydrothroax Ascites Acute on Chronic Renal Failure Thrombocytopenia CAD s/p PPM - continue lasix - restart aldactone - monitor urine output, creatinine - ideally need to control ascites to prevent recurrence of pleural effusion - monitor platelets - large volume paracentesis if can get platelets to safe range - DVT prophylaxis - poor prognosis
[2017-01-19] MEDS: SPIRONOLACTONE 25 MG TABLET (FP) PO SCH (13:43)
[2017-01-19] MEDS ORDERED: INSULIN (NOVOLOG) ASPART 100 UNITS/ML 10ML VIAL ONE (17:03)
[2017-01-20] MEDS: HYDROmorphone HCL 2 MG TABLET PO PRN ×4 (05:49→23:56)
[2017-01-20] MEDS: INSULIN SLIDING SCALE (NOVOLOG) 1 VIAL SQ SCH ×4 (06:05→22:23)
[2017-01-20] MEDS: INSULIN DETEMIR 100 UNITS/ML MDV SQ SCH ×2 (06:06→22:17)
[2017-01-20 08:00] LABS: CALCIUM 8.3 mg/dL (8.5-10.1); CREATININE 1.8 mg/dL (0.7-1.3); MAGNESIUM 1.8 mg/dL (1.8-2.4)
[2017-01-20 08:10] LABS: BASOPHIL 0.6 % (0-2.0); EOSINOPHIL 3.4 % (0-4.5); MCH 33.5 pg (25.7-33.7); MCHC 34.6 g/dl (32.0-35.9); MEAN CELL VOLUME 96.9 fl (80-96); MEAN PLT VOLUME 10.9 fl (7.5-11.1); NEUTROPHILS 66.3 % (42.8-82.8); PLATELET COUNT 44 K/MM3 (134-434); RDW 16.3 % (11.9-15.9); WHITE BLOOD COUNT 5.6 K/mm3 (4.0-10.0)
[2017-01-20] MEDS ORDERED: PT OWN MED DRAWER 7, Y5N ONE ×2 (08:53→22:21)
[2017-01-20] MEDS: SPIRONOLACTONE 25 MG TABLET (FP) PO SCH (09:04)
[2017-01-20] MEDS: METHADONE HCL 10 MG TABLET PO SCH (09:04)
[2017-01-20] MEDS: LACTULOSE 20 GM/30 ML UDC (FOR ORAL USE ONLY) PO SCH ×4 (09:05→22:17)
[2017-01-20] MEDS: GABAPENTIN 100 MG CAPSULE (FP) PO SCH ×2 (09:05→22:17)
[2017-01-20] MEDS: FUROSEMIDE 40 MG TABLET (FP) PO SCH (09:05)
[2017-01-20] MEDS: PANTOPRAZOLE 40 MG TABLET (FP) PO SCH (09:05)
[2017-01-20] MEDS: CEFTRIAXONE 50 ML IVPB SCH (09:06)
--- NOTE | 2017-01-20 09:06 | PN ---
Progress Note, Physician History of Present Illness: c/o pain from catheter - Current Medication List Current Medications: Active Medications Albuterol/Ipratropium (Duoneb -) 1 amp NEB Q6H PRN PRN Reason: SHORTNESS OF BREATH Furosemide (Lasix -) 60 mg PO DAILY [facility] Last Admin: 01/19/17 12:08 Dose: 60 mg Gabapentin (Neurontin -) 100 mg PO BID [facility] Last Admin: 01/19/17 22:39 Dose: 100 mg Hydromorphone HCl (Dilaudid -) 2 mg PO Q6H PRN PRN Reason: PAIN Last Admin: 01/20/17 05:49 Dose: 2 mg Ceftriaxone Sodium (Rocephin 1gm Ivpb (Pre-Docked)) 50 mls @ 100 mls/hr IVPB DAILY [facility] Last Admin: 01/19/17 12:08 Dose: 100 mls/hr Insulin Aspart (Novolog Vial Sliding Scale -) 1 vial SQ ACHS [facility] PRN Reason: Protocol Last Admin: 01/20/17 06:05 Dose: Not Given Insulin Detemir (Levemir Vial) 25 units SQ AM [facility] Last Admin: 01/20/17 06:06 Dose: 25 units Insulin Detemir (Levemir Vial) 25 units SQ HS [facility] Last Admin: 01/19/17 22:41 Dose: 25 units Lactulose (Cephulac (Oral Use)) 30 gm PO QID [facility] Last Admin: 01/19/17 22:42 Dose: Not Given Methadone HCl (Dolophine -) 10 mg PO DAILY [facility] Last Admin: 01/19/17 10:08 Dose: 10 mg Metoprolol Tartrate (Lopressor -) 25 mg PO BID [facility] Last Admin: 01/14/17 00:35 Dose: 25 mg Pantoprazole Sodium (Protonix -) 40 mg PO DAILY [facility] Last Admin: 01/19/17 10:08 Dose: 40 mg Rifaximin (Xifaxan -) 550 mg PO BID [facility] Last Admin: 01/19/17 22:43 Dose: 550 mg Spironolactone (Aldactone -) 100 mg PO DAILY [facility] Last Admin: 01/19/17 13:43 Dose: 100 mg - Objective Vital Signs: Vital Signs Temperature 97.6 F 01/20/17 06:00 Pulse Rate 83 01/20/17 06:00 Respiratory Rate 20 01/20/17 06:00 Blood Pressure 152/81 01/20/17 06:00 O2 Sat by Pulse Oximetry (%) 97 01/19/17 22:00 Cardiovascular: Yes: S1, S2 Respiratory: Yes: Diminished Gastrointestinal: Yes: Normal Bowel Sounds, Soft, Ascites, Distention Edema: Yes Labs: CBC, BMP 01/20/17 06:50 01/20/17 06:50 Problem List - Problems (1) Acute kidney injury superimposed on CKD Code(s): N17.9 - ACUTE KIDNEY FAILURE, UNSPECIFIED N18.9 - CHRONIC KIDNEY DISEASE, UNSPECIFIED (2) Cirrhosis of liver Code(s): K74.60 - UNSPECIFIED CIRRHOSIS OF LIVER Qualifiers: Hepatic cirrhosis type: unspecified hepatic cirrhosis Ascites presence : with ascites Qualified Code(s): K74.60 - Unspecified cirrhosis of liver (3) Type 2 diabetes mellitus with other diabetic neurological complication Code(s): E11.49 - TYPE 2 DIABETES W OTH DIABETIC NEUROLOGICAL COMPLICATION (4) Altered mental status Code(s): R41.82 - ALTERED MENTAL STATUS, UNSPECIFIED Qualifiers: Altered mental status type: disorientation Qualified Code(s): R41.0 - Disorientation, unspecified (5) DVT (deep venous thrombosis) Code(s): I82.409 - ACUTE EMBOLISM AND THOMBOS UNSP DEEP VN UNSP LOWER EXTREMITY Qualifiers: DVT location: lower extremity Affected thrombotic vein of extremity: femoral Laterality: left Chronicity: acute Qualified Code(s): I82.412 - Acute embolism and thrombosis of left femoral vein (7) Pleural effusion associated with hepatic disorder Code(s): K76.9 - LIVER DISEASE, UNSPECIFIED J91.8 - PLEURAL EFFUSION IN OTHER CONDITIONS CLASSIFIED ELSEWHERE Assessment/Plan - Problems (1) Pleural effusion Assessment/Plan: pleurex in place--IR F/U s/p drain yesterday 500cc CT scan noted will start iv abx for possible cellulitis aroudn plerex tube site and possilble right lower lobe consolidation Code(s): J90 - PLEURAL EFFUSION, NOT ELSEWHERE CLASSIFIED (2) Acute kidney injury superimposed on CKD Assessment/Plan: bun/cr will monitor Code(s): N17.9 - ACUTE KIDNEY FAILURE, UNSPECIFIED N18.9 - CHRONIC KIDNEY DISEASE, UNSPECIFIED (3) Cirrhosis of liver-ASCITES Assessment/Plan: rifaximin lactulose for elevated amonia- now trending down IR FOR DRAINAGE Code(s): K74.60 - UNSPECIFIED CIRRHOSIS OF LIVER Qualifiers: Hepatic cirrhosis type: unspecified hepatic cirrhosis Ascites presence : with ascites Qualified Code(s): K74.60 - Unspecified cirrhosis of liver (4) Thrombocytopenia Assessment/Plan: MONITOR MAY NEED PLAT IF TAP (5) Type 2 diabetes mellitus with other diabetic neurological complication Assessment/Plan: bgm insulin neurontin Code(s): E11.49 - TYPE 2 DIABETES W OTH DIABETIC NEUROLOGICAL COMPLICATION (6) METHADONE MAINTENANCE Assessment/Plan: methadone dr dumont saw the pateint same dose (7) DVT (deep venous thrombosis) Assessment/Plan: no AC sec to low platelets has IVF filter Code(s): I82.409 - ACUTE EMBOLISM AND THOMBOS UNSP DEEP VN UNSP LOWER EXTREMITY Qualifiers: DVT location: lower extremity Affected thrombotic vein of extremity: femoral Laterality: left Chronicity: acute Qualified Code(s): I82.412 - Acute embolism and thrombosis of left femoral vein (8) Decubitus skin ulcer Code(s): L89.90 - PRESSURE ULCER OF UNSPECIFIED SITE, UNSPECIFIED STAGE Qualifiers: Pressure ulcer location: buttock
[2017-01-20] MEDS ORDERED: INSULIN (NOVOLOG) ASPART 100 UNITS/ML 10ML VIAL ONE (11:10)
[2017-01-20] MEDS: RIFAXIMIN 550 MG TABLET (UD) PO SCH ×2 (11:13→23:13)
--- NOTE | 2017-01-20 11:29 | PN ---
Progress Note (short form) - Note Progress Note: Renal follow up for SHANKAR on CKD Pt seen and examined at the bedside continues to have pain at catheter site cannot take a deep inspiration no fever or chills + Ascities Vital Signs Temperature 97.7 F 01/20/17 09:00 Pulse Rate 87 01/20/17 09:00 Respiratory Rate 19 01/20/17 09:00 Blood Pressure 121/88 01/20/17 09:00 O2 Sat by Pulse Oximetry (%) 97 01/20/17 09:38 Intake & Output 01/17/17 01/18/17 01/19/17 01/20/17 23:59 23:59 23:59 23:59 Intake Total 311 913 8294 325 Output Total 600 500 Balance 167 954 3726 325 Weight 171 lb 8 oz 172 lb 14.4 oz Gen: NAD, awake and alert CVS: RRR, No M/R Lungs: dec BS right lung base Abd: soft + Asciteies Ext: + LE edema CBC, BMP 01/20/17 06:50 01/20/17 06:50 Current Medications Albuterol/Ipratropium (Duoneb -) 1 amp NEB Q6H PRN PRN Reason: SHORTNESS OF BREATH Furosemide (Lasix -) 60 mg PO DAILY [facility] Last Admin: 01/20/17 09:05 Dose: 60 mg Gabapentin (Neurontin -) 100 mg PO BID [facility] Last Admin: 01/20/17 09:05 Dose: 100 mg Hydromorphone HCl (Dilaudid -) 2 mg PO Q6H PRN PRN Reason: PAIN Last Admin: 01/20/17 05:49 Dose: 2 mg Ceftriaxone Sodium (Rocephin 1gm Ivpb (Pre-Docked)) 50 mls @ 100 mls/hr IVPB DAILY [facility] Last Admin: 01/20/17 09:06 Dose: 100 mls/hr Insulin Aspart (Novolog Vial Sliding Scale -) 1 vial SQ ACHS [facility] PRN Reason: Protocol Last Admin: 01/20/17 11:13 Dose: 2 units Insulin Detemir (Levemir Vial) 25 units SQ AM [facility] Last Admin: 01/20/17 06:06 Dose: 25 units Insulin Detemir (Levemir Vial) 25 units SQ HS [facility] Last Admin: 01/19/17 22:41 Dose: 25 units Lactulose (Cephulac (Oral Use)) 30 gm PO QID [facility] Last Admin: 01/20/17 09:05 Dose: 30 gm Methadone HCl (Dolophine -) 10 mg PO DAILY [facility] Last Admin: 01/20/17 09:04 Dose: 10 mg Metoprolol Tartrate (Lopressor -) 25 mg PO BID [facility] Last Admin: 01/14/17 00:35 Dose: 25 mg Pantoprazole Sodium (Protonix -) 40 mg PO DAILY [facility] Last Admin: 01/20/17 09:05 Dose: 40 mg Rifaximin (Xifaxan -) 550 mg PO BID [facility] Last Admin: 01/20/17 11:13 Dose: 550 mg Spironolactone (Aldactone -) 100 mg PO DAILY [facility] Last Admin: 01/20/17 09:04 Dose: 100 mg A/P 56 year old woman with PMhx of Hepatitis C with ESLD, CKD (Cr 1.5-17), CAD, DM who presented with AMS and admitted for hepatic encehlopathy and noted to have BUN/Cr of 58/2.2. #Acute on Chronic Renal Insufficiency Renal function now improved and stable restarted on Lasix and Aldactone Trend BUN/Cr and K #Hepatic Encephlopathy/ESLD/Hep C/Ascities continue Lactulose (having 3 BMs daily) Paracentesis when ok to do #Right Pleural effusion chest tube in place, may warrant drainage Check X-ray of ribs because of pain at site of cather s/p 500cc drainage yesterday Flako Dobson DO
--- NOTE | 2017-01-20 12:30 | PN ---
Progress Note (short form) - Note Progress Note: ID consult dictated imp/reccd 56 year old man admitted 01/13 with altared MS- he has a history of liver cirrhosis, hep c, end stage liver disease he has a chronic right pleural effusion with a pleurx that is drained at home I am asked to see him for possible pneumonia he notes discomfort at catheter site no fevers no cough for paracentesis today doubt pneumonia- chest ct more consistent with effusion with atelectasis can d/c ceftriaxone
--- NOTE | 2017-01-20 13:29 | PN ---
Progress Note, Physician History of Present Illness: pulmonary alert,nad,for paracentesis today - Current Medication List Current Medications: Active Medications Albuterol/Ipratropium (Duoneb -) 1 amp NEB Q6H PRN PRN Reason: SHORTNESS OF BREATH Furosemide (Lasix -) 60 mg PO DAILY [facility] Last Admin: 01/20/17 09:05 Dose: 60 mg Gabapentin (Neurontin -) 100 mg PO BID [facility] Last Admin: 01/20/17 09:05 Dose: 100 mg Hydromorphone HCl (Dilaudid -) 2 mg PO Q6H PRN PRN Reason: PAIN Last Admin: 01/20/17 11:54 Dose: 2 mg Insulin Aspart (Novolog Vial Sliding Scale -) 1 vial SQ ACHS [facility] PRN Reason: Protocol Last Admin: 01/20/17 11:13 Dose: 2 units Insulin Detemir (Levemir Vial) 25 units SQ AM [facility] Last Admin: 01/20/17 06:06 Dose: 25 units Insulin Detemir (Levemir Vial) 25 units SQ HS [facility] Last Admin: 01/19/17 22:41 Dose: 25 units Lactulose (Cephulac (Oral Use)) 30 gm PO QID [facility] Last Admin: 01/20/17 09:05 Dose: 30 gm Methadone HCl (Dolophine -) 10 mg PO DAILY [facility] Last Admin: 01/20/17 09:04 Dose: 10 mg Metoprolol Tartrate (Lopressor -) 25 mg PO BID [facility] Last Admin: 01/14/17 00:35 Dose: 25 mg Pantoprazole Sodium (Protonix -) 40 mg PO DAILY [facility] Last Admin: 01/20/17 09:05 Dose: 40 mg Rifaximin (Xifaxan -) 550 mg PO BID [facility] Last Admin: 01/20/17 11:13 Dose: 550 mg Spironolactone (Aldactone -) 100 mg PO DAILY [facility] Last Admin: 01/20/17 09:04 Dose: 100 mg - Objective Vital Signs: Vital Signs Temperature 97.7 F 01/20/17 12:17 Pulse Rate 88 01/20/17 12:17 Respiratory Rate 16 01/20/17 12:17 Blood Pressure 136/83 01/20/17 12:17 O2 Sat by Pulse Oximetry (%) 97 01/20/17 09:38 Constitutional: Yes: Well Nourished, Calm Eyes: Yes: WNL HENT: Yes: WNL Neck: Yes: WNL Cardiovascular: Yes: Regular Rate and Rhythm, S1, S2 Respiratory: Yes: Diminished (diminished bs on r) Gastrointestinal: Yes: Abdomen, Obese, Ascites Extremities: Yes: WNL Edema: No Labs: CBC, BMP 01/20/17 06:50 01/20/17 06:50 Problem List - Problems (1) Acute kidney injury superimposed on CKD Code(s): N17.9 - ACUTE KIDNEY FAILURE, UNSPECIFIED N18.9 - CHRONIC KIDNEY DISEASE, UNSPECIFIED (2) Cirrhosis of liver Code(s): K74.60 - UNSPECIFIED CIRRHOSIS OF LIVER Qualifiers: Hepatic cirrhosis type: unspecified hepatic cirrhosis Ascites presence : with ascites Qualified Code(s): K74.60 - Unspecified cirrhosis of liver (3) Hyperglycemia Code(s): R73.9 - HYPERGLYCEMIA, UNSPECIFIED (4) Portal hypertension Code(s): K76.6 - PORTAL HYPERTENSION (5) Type 2 diabetes mellitus with other diabetic neurological complication Code(s): E11.49 - TYPE 2 DIABETES W H DIABETIC NEUROLOGICAL COMPLICATION (6) Acute on chronic renal failure Code(s): N17.9 - ACUTE KIDNEY FAILURE, UNSPECIFIED N18.9 - CHRONIC KIDNEY DISEASE, UNSPECIFIED (7) Altered mental status Code(s): R41.82 - ALTERED MENTAL STATUS, UNSPECIFIED Qualifiers: Altered mental status type: disorientation Qualified Code(s): R41.0 - Disorientation, unspecified (8) Ascites Code(s): R18.8 - OTHER ASCITES Qualifiers: Ascites type: due to alcoholic cirrhosis Qualified Code(s): K70.31 - Alcoholic cirrhosis of liver with ascites (9) Esophageal varices Code(s): I85.00 - ESOPHAGEAL VARICES WITHOUT BLEEDING Qualifiers: Esophageal varices type: secondary Esophageal varices bleeding: without bleeding Qualified Code(s): I85.10 - Secondary esophageal varices without bleeding (10) Hepatic encephalopathy Code(s): K72.90 - HEPATIC FAILURE, UNSPECIFIED WITHOUT COMA (11) Hydrothorax Code(s): J94.8 - OTHER SPECIFIED PLEURAL CONDITIONS (12) Pleural effusion associated with hepatic disorder Code(s): K76.9 - LIVER DISEASE, UNSPECIFIED J91.8 - PLEURAL EFFUSION IN OTHER CONDITIONS CLASSIFIED ELSEWHERE (13) Thrombocytopenia Code(s): D69.6 - THROMBOCYTOPENIA, UNSPECIFIED Assessment/Plan IMP DYSPNEA INCREASING R PLEURAL EFFUSION S/P PLEUR-X HEPATIC ENCEPHALOPATHY ASCITES ASHD S/P AL S/P PPM ACUTE ON CHRONIC RENAL FAILURE ASTHMA THROMBOCYTOPENIA PLAN PLEURAL FLUID DRAINAGE VIA PLEUR-X TODAY O2 DAILY WTS MONITOR RENAL FUNCTION,LYTES,CBC PARACENTESIS Problem List - Problems (1) Acute kidney injury superimposed on CKD Code(s): N17.9 - ACUTE KIDNEY FAILURE, UNSPECIFIED N18.9 - CHRONIC KIDNEY DISEASE, UNSPECIFIED (2) Cirrhosis of liver Code(s): K74.60 - UNSPECIFIED CIRRHOSIS OF LIVER Qualifiers: Hepatic cirrhosis type: unspecified hepatic cirrhosis Ascites presence : with ascites Qualified Code(s): K74.60 - Unspecified cirrhosis of liver (3) Hyperglycemia Code(s): R73.9 - HYPERGLYCEMIA, UNSPECIFIED (4) Portal hypertension Code(s): K76.6 - PORTAL HYPERTENSION (5) Type 2 diabetes mellitus with other diabetic neurological complication Code(s): E11.49 - TYPE 2 DIABETES W H DIABETIC NEUROLOGICAL COMPLICATION (6) Acute on chronic renal failure Code(s): N17.9 - ACUTE KIDNEY FAILURE, UNSPECIFIED N18.9 - CHRONIC KIDNEY DISEASE, UNSPECIFIED (7) Altered mental status Code(s): R41.82 - ALTERED MENTAL STATUS, UNSPECIFIED Qualifiers: Altered mental status type: disorientation Qualified Code(s): R41.0 - Disorientation, unspecified (8) Ascites Code(s): R18.8 - OTHER ASCITES Qualifiers: Ascites type: due to alcoholic cirrhosis Qualified Code(s): K70.31 - Alcoholic cirrhosis of liver with ascites (9) Esophageal varices Code(s): I85.00 - ESOPHAGEAL VARICES WITHOUT BLEEDING Qualifiers: Esophageal varices type: secondary Esophageal varices bleeding: without bleeding Qualified Code(s): I85.10 - Secondary esophageal varices without bleeding (10) Hepatic encephalopathy Code(s): K72.90 - HEPATIC FAILURE, UNSPECIFIED WITHOUT COMA (11) Hydrothorax Code(s): J94.8 - OTHER SPECIFIED PLEURAL CONDITIONS (12) Pleural effusion associated with hepatic disorder Code(s): K76.9 - LIVER DISEASE, UNSPECIFIED J91.8 - PLEURAL EFFUSION IN OTHER CONDITIONS CLASSIFIED ELSEWHERE (13) Thrombocytopenia Code(s): D69.6 - THROMBOCYTOPENIA, UNSPECIFIED
--- NOTE | 2017-01-20 16:07 | CONS ---
DATE OF CONSULTATION: DATE OF DICTATION: 01/20/2017 INFECTIOUS DISEASE CONSULTATION REQUESTING PHYSICIAN: Jag Thompson MD HISTORY OF PRESENT ILLNESS: This is a 56-year-old man with past medical history of hepatitis C, end-stage liver disease with liver cirrhosis, and he has a chronic right pleural effusion with PleurX that is drained at home. He presented to the emergency room with change in mental status and this was on January 13, 2017. He was noted to have hepatic encephalopathy and elevated BUN and creatinine. His mental function improved with lactulose. His renal function improved with intravenous fluids. I am asked to see him now for possible pneumonia. He is awake and alert. He denies any cough. He denies any fevers or chills. He notes he has discomfort at the site of the PleurX catheter. PAST MEDICAL HISTORY: Notable for end-stage liver disease with ascites; chronic kidney disease; arthrosclerotic heart disease; status post VT; pacemaker; he has a history of esophageal varices; low-grade B-cell lymphoma; GI bleed; chronic right pleural effusion status post PleurX; diabetes, hepatitis C; also has a history of a hip fracture in the past. He has a psychiatric history with polysubstance abuse on methadone maintenance. He has a history of anxiety; anemia; thrombocytopenia. He has a history of diverticulitis in the past. ALLERGIES: HE IS ALLERGIC TO NUBAIN AND OCTREOTIDE. MEDICATIONS AN OUTPATIENT: DuoNebs; methadone; rifaximin; Lasix; gabapentin; insulin; lactulose; metoprolol; Protonix. FAMILY HISTORY: Notable for heart disease and breast cancer. SOCIAL HISTORY: He is an active smoker. He smokes 5 cigarettes a day. He lives at home. REVIEW OF SYSTEMS: He denies shortness of breath. He denies cough. He does note right rib discomfort. He has been having normal bowel movements and his appetite is good. PHYSICAL EXAMINATION: Vital Signs: Temperature of 97.4, pulse of 78, blood pressure of 119/84, respiratory rate of 22, and he is saturating 97% on room air. HEENT: He is normocephalic. His eyes are anicteric. Lungs: He has diminished breath sounds in his right lung. Heart: Regular rate and rhythm. Abdomen: Distended and soft and nontender with ascites. Extremities: Bilateral edema of 1+. LABORATORY DATA: Labs are notable for white count of 5.6, hemoglobin of 11.2, and platelets of 44,000. BUN of 47 and creatinine of 1.8. Urinalysis is negative. Urine toxicology was positive for opiates, methadone, and benzodiazepines. CAT scan of the chest was done on January 18, 2017, and notable for a large right pleural effusion with a chest tube and compressive atelectasis. IN SUMMARY: This is an elderly man with end-stage liver disease who I am asked to see for possible pneumonia. He notes discomfort at the catheter site. He has no cough or fever. CAT scan is notable for effusion with compressive atelectasis. The PleurX site has some very minimal erythema that is not very impressive. PLAN: Would suggest that we discontinue his antibiotics and observe him off antibiotics. He is scheduled for paracentesis today. ROSITA MERCHANT M.D. [id number]
[2017-01-20 16:41] LABS: INR 1.47 (0.82-1.09); PROTHROMBIN TIME (PATIENT) 16.3 SEC (9.98-11.88)
[2017-01-20] MEDS: SILVER SULFADIAZINE 1% TOP CREAM 50 GM JAR TP SCH (22:16)
[2017-01-21] MEDS ORDERED: ZOLPIDEM TARTRATE 5 MG TABLET PO ONE (01:15)
[2017-01-21] MEDS: INSULIN DETEMIR 100 UNITS/ML MDV SQ SCH ×3 (06:24→21:49)
[2017-01-21] MEDS: INSULIN SLIDING SCALE (NOVOLOG) 1 VIAL SQ SCH ×4 (06:26→21:59)
[2017-01-21 08:04] LABS: BASOPHIL 0.6 % (0-2.0); EOSINOPHIL 2.5 % (0-4.5); MCH 33.7 pg (25.7-33.7); MCHC 34.4 g/dl (32.0-35.9); MEAN PLT VOLUME 10.1 fl (7.5-11.1); NEUTROPHILS 65.9 % (42.8-82.8); RDW 15.9 % (11.9-15.9)
[2017-01-21 08:15] LABS: PLATELET COUNT 31 K/MM3 (134-434)
[2017-01-21] MEDS: HYDROmorphone HCL 2 MG TABLET PO PRN ×3 (08:22→21:45)
[2017-01-21 08:47] LABS: CALCIUM 8.1 mg/dL (8.5-10.1); CREATININE 1.9 mg/dL (0.7-1.3); MAGNESIUM 1.9 mg/dL (1.8-2.4); PHOSPHOROUS 3.9 mg/dL (2.5-4.9)
--- NOTE | 2017-01-21 10:39 | PN ---
Progress Note, Physician Chief Complaint: still has pain at drain site lying on his site as he is more comfortable in that position NPO for ultrasound klever need paracentesis - Current Medication List Current Medications: Active Medications Albuterol/Ipratropium (Duoneb -) 1 amp NEB Q6H PRN PRN Reason: SHORTNESS OF BREATH Furosemide (Lasix -) 60 mg PO DAILY [facility] Last Admin: 01/20/17 09:05 Dose: 60 mg Gabapentin (Neurontin -) 100 mg PO BID [facility] Last Admin: 01/20/17 22:17 Dose: 100 mg Hydromorphone HCl (Dilaudid -) 2 mg PO Q6H PRN PRN Reason: PAIN Last Admin: 01/21/17 08:22 Dose: 2 mg Insulin Aspart (Novolog Vial Sliding Scale -) 1 vial SQ ACHS [facility] PRN Reason: Protocol Last Admin: 01/21/17 06:26 Dose: Not Given Insulin Detemir (Levemir Vial) 25 units SQ AM [facility] Last Admin: 01/21/17 06:24 Dose: Not Given Insulin Detemir (Levemir Vial) 25 units SQ HS [facility] Last Admin: 01/20/17 22:17 Dose: Not Given Lactulose (Cephulac (Oral Use)) 30 gm PO QID [facility] Last Admin: 01/20/17 22:17 Dose: Not Given Methadone HCl (Dolophine -) 10 mg PO DAILY [facility] Last Admin: 01/20/17 09:04 Dose: 10 mg Metoprolol Tartrate (Lopressor -) 25 mg PO BID [facility] Last Admin: 01/14/17 00:35 Dose: 25 mg Pantoprazole Sodium (Protonix -) 40 mg PO DAILY [facility] Last Admin: 01/20/17 09:05 Dose: 40 mg Silver Sulfadiazine (Silvadene -) 1 applic TP DAILY [facility] Last Admin: 01/20/17 22:16 Dose: 1 appful Sodium Polystyrene Sulfonate (Kayexalate -) 15 gm PO ONCE ONE Stop: 01/21/17 09:56 Spironolactone (Aldactone -) 100 mg PO DAILY [facility] Last Admin: 01/20/17 09:04 Dose: 100 mg - Objective Vital Signs: Vital Signs Temperature 97.9 F 01/21/17 06:00 Pulse Rate 86 01/21/17 06:00 Respiratory Rate 20 01/21/17 06:00 Blood Pressure 156/90 01/21/17 06:00 O2 Sat by Pulse Oximetry (%) 95 01/20/17 21:00 Constitutional: Yes: Calm, Cachectic Neck: Yes: Trachea Midline Cardiovascular: Yes: Regular Rate and Rhythm, S1, S2 Respiratory: Yes: Diminished (on right side pleurex drain) Gastrointestinal: Yes: Soft, Ascites, Hernia Extremities: Yes: Other (chronic changes) Neurological: Yes: Alert, Oriented Labs: CBC, BMP 01/21/17 06:00 01/21/17 06:00 INR, PTT INR 1.47 (0.82-1.09) H 01/20/17 15:30 Problem List - Problems (1) Pleural effusion Assessment/Plan: plan for paracentesis klever get heme on board as patient needs premedication prior to transfusion Code(s): J90 - PLEURAL EFFUSION, NOT ELSEWHERE CLASSIFIED (2) Acute kidney injury superimposed on CKD Assessment/Plan: bun/cr will monitor Code(s): N17.9 - ACUTE KIDNEY FAILURE, UNSPECIFIED N18.9 - CHRONIC KIDNEY DISEASE, UNSPECIFIED (3) Cirrhosis of liver Assessment/Plan: rifaximin lactulose for elevated amonia- now trending down Code(s): K74.60 - UNSPECIFIED CIRRHOSIS OF LIVER Qualifiers: Hepatic cirrhosis type: unspecified hepatic cirrhosis Ascites presence : with ascites Qualified Code(s): K74.60 - Unspecified cirrhosis of liver (4) Hyperglycemia Assessment/Plan: bgm noted insulin dose adjusted Code(s): R73.9 - HYPERGLYCEMIA, UNSPECIFIED (5) Type 2 diabetes mellitus with other diabetic neurological complication Assessment/Plan: bgm insulin neurontin Code(s): E11.49 - TYPE 2 DIABETES W H DIABETIC NEUROLOGICAL COMPLICATION (6) METHADONE MAINTENANCE Assessment/Plan: on 10mg methadone (7) DVT (deep venous thrombosis) Assessment/Plan: no AC sec to low platelets has IVF filter Code(s): I82.409 - ACUTE EMBOLISM AND THOMBOS UNSP DEEP VN UNSP LOWER EXTREMITY Qualifiers: DVT location: lower extremity Affected thrombotic vein of extremity: femoral Laterality: left Chronicity: acute Qualified Code(s): I82.412 - Acute embolism and thrombosis of left femoral vein (8) Decubitus skin ulcer Code(s): L89.90 - PRESSURE ULCER OF UNSPECIFIED SITE, UNSPECIFIED STAGE Qualifiers: Pressure ulcer location: buttock
[2017-01-21] MEDS: GABAPENTIN 100 MG CAPSULE (FP) PO SCH ×2 (10:55→21:44)
[2017-01-21] MEDS: METHADONE HCL 10 MG TABLET PO SCH (10:55)
[2017-01-21] MEDS: FUROSEMIDE 40 MG TABLET (FP) PO SCH (10:55)
[2017-01-21] MEDS: SPIRONOLACTONE 25 MG TABLET (FP) PO SCH (10:55)
[2017-01-21] MEDS: PANTOPRAZOLE 40 MG TABLET (FP) PO SCH (10:56)
[2017-01-21] MEDS: LACTULOSE 20 GM/30 ML UDC (FOR ORAL USE ONLY) PO SCH ×4 (10:57→21:47)
[2017-01-21] MEDS ORDERED: SODIUM POLYSTYRENE SULFONATE 15 GM/60 ML BOTTLE PO ONE (11:00)
[2017-01-21] MEDS: SILVER SULFADIAZINE 1% TOP CREAM 50 GM JAR TP SCH (11:05)
--- NOTE | 2017-01-21 11:28 | PN ---
Progress Note (short form) - Note Progress Note: Renal follow up for SHANKAR on CKD Pt seen and examined at the bedside feels better today awaiting paracentesis Vital Signs Temperature 97.9 F 01/21/17 06:00 Pulse Rate 86 01/21/17 06:00 Respiratory Rate 20 01/21/17 06:00 Blood Pressure 156/90 01/21/17 06:00 O2 Sat by Pulse Oximetry (%) 95 01/20/17 21:00 Intake & Output 01/18/17 01/19/17 01/20/17 01/21/17 23:59 23:59 23:59 23:59 Intake Total 865 1630 1055 0 Output Total 500 Balance 365 1630 1055 0 Weight 171 lb 8 oz 172 lb 14.4 oz 172 lb 5 oz Gen: NAD, awake and alert CVS: RRR, No M/R Lungs: dec BS right lung base Abd: soft + Asciteies Ext: + LE edema CBC, BMP 01/21/17 06:00 01/21/17 06:00 Laboratory Tests 01/21/17 06:00 Calcium 8.1 L Phosphorus 3.9 Magnesium 1.9 Current Medications Albuterol/Ipratropium (Duoneb -) 1 amp NEB Q6H PRN PRN Reason: SHORTNESS OF BREATH Furosemide (Lasix -) 60 mg PO DAILY [facility] Last Admin: 01/21/17 10:55 Dose: 60 mg Gabapentin (Neurontin -) 100 mg PO BID [facility] Last Admin: 01/21/17 10:55 Dose: 100 mg Hydromorphone HCl (Dilaudid -) 2 mg PO Q6H PRN PRN Reason: PAIN Last Admin: 01/21/17 08:22 Dose: 2 mg Insulin Aspart (Novolog Vial Sliding Scale -) 1 vial SQ ACHS [facility] PRN Reason: Protocol Last Admin: 01/21/17 10:58 Dose: 7 units Insulin Detemir (Levemir Vial) 25 units SQ AM [facility] Last Admin: 01/21/17 10:57 Dose: 25 units Insulin Detemir (Levemir Vial) 25 units SQ HS [facility] Last Admin: 01/20/17 22:17 Dose: Not Given Lactulose (Cephulac (Oral Use)) 30 gm PO QID [facility] Last Admin: 01/21/17 10:57 Dose: 30 gm Methadone HCl (Dolophine -) 10 mg PO DAILY [facility] Last Admin: 01/21/17 10:55 Dose: 10 mg Metoprolol Tartrate (Lopressor -) 25 mg PO BID [facility] Last Admin: 01/14/17 00:35 Dose: 25 mg Pantoprazole Sodium (Protonix -) 40 mg PO DAILY [facility] Last Admin: 01/21/17 10:56 Dose: 40 mg Silver Sulfadiazine (Silvadene -) 1 applic TP DAILY [facility] Last Admin: 01/21/17 11:05 Dose: 1 appful Spironolactone (Aldactone -) 100 mg PO DAILY [facility] Last Admin: 01/21/17 10:55 Dose: 100 mg A/P 56 year old woman with PMhx of Hepatitis C with ESLD, CKD (Cr 1.5-17), CAD, DM who presented with AMS and admitted for hepatic encehlopathy and noted to have BUN/Cr of 58/2.2. #Acute on Chronic Renal Insufficiency/Hyperkalemia Renal function now improved and stable Potassium now elevated (from aldactone vs. oral K intake) for kayexalate today Low k diet trend K #Hepatic Encephlopathy/ESLD/Hep C/Ascities continue Lactulose (having 3 BMs daily) Paracentesis today #Right Pleural effusion chest tube in place drainage as per pulmonary Flako Dobson DO
--- NOTE | 2017-01-21 12:01 | PN ---
Progress Note (short form) - Note Progress Note: PULMONARY Still with pain at pleur-x site. Worsening shortness of breath. Per verbal report, not enough ascites for paracentesis. Last Vital Signs Temp Pulse Resp BP Pulse Ox 98.1 F 88 20 139/75 95 01/21/17 10:00 01/21/17 10:00 01/21/17 10:00 01/21/17 10:00 01/20/17 21:00 Gen: more cachectic, uncomfortable Heart: RRR Lung: decreased breath sounds right base 2/3 up Abd: soft, distended, nontender, +ascites Ext: trace edema CBC, BMP 01/21/17 06:00 01/21/17 06:00 Active Medications Albuterol/Ipratropium (Duoneb -) 1 amp NEB Q6H PRN PRN Reason: SHORTNESS OF BREATH Furosemide (Lasix -) 60 mg PO DAILY [facility] Last Admin: 01/21/17 10:55 Dose: 60 mg Gabapentin (Neurontin -) 100 mg PO BID [facility] Last Admin: 01/21/17 10:55 Dose: 100 mg Hydromorphone HCl (Dilaudid -) 2 mg PO Q6H PRN PRN Reason: PAIN Last Admin: 01/21/17 08:22 Dose: 2 mg Insulin Aspart (Novolog Vial Sliding Scale -) 1 vial SQ ACHS [facility] PRN Reason: Protocol Last Admin: 01/21/17 10:58 Dose: 7 units Insulin Detemir (Levemir Vial) 25 units SQ AM [facility] Last Admin: 01/21/17 10:57 Dose: 25 units Insulin Detemir (Levemir Vial) 25 units SQ HS [facility] Last Admin: 01/20/17 22:17 Dose: Not Given Lactulose (Cephulac (Oral Use)) 30 gm PO QID [facility] Last Admin: 01/21/17 10:57 Dose: 30 gm Methadone HCl (Dolophine -) 10 mg PO DAILY [facility] Last Admin: 01/21/17 10:55 Dose: 10 mg Metoprolol Tartrate (Lopressor -) 25 mg PO BID [facility] Last Admin: 01/14/17 00:35 Dose: 25 mg Pantoprazole Sodium (Protonix -) 40 mg PO DAILY [facility] Last Admin: 01/21/17 10:56 Dose: 40 mg Silver Sulfadiazine (Silvadene -) 1 applic TP DAILY [facility] Last Admin: 01/21/17 11:05 Dose: 1 appful Spironolactone (Aldactone -) 100 mg PO DAILY [facility] Last Admin: 01/21/17 10:55 Dose: 100 mg A/P Liver Cirrhosis Pleural Effusion/Hepatic Hydrothroax Ascites Acute on Chronic Renal Failure Thrombocytopenia CAD s/p PPM - drain pleur-x today as pt symptomatic - continue lasix - hold aldactone due to hyperkalemia - monitor urine output, creatinine - ideally need to control ascites to prevent recurrence of pleural effusion - monitor platelets - DVT prophylaxis - poor prognosis
--- NOTE | 2017-01-21 14:46 | PN ---
Progress Note (short form) - Note Progress Note: WOUND CARE CONSULT - Daquan Gallagher, DO Patient well know to Wound Care Service. Called to evaluate sacral wound. Currently using silver cream with daily dressings. Stage 2 Sacral ulcer ~ 8 cm x 6 cm with small area of eschar to upper left quadrant of wound. No induration/bogginess or foul odor emenating from wound. CBC, BMP 01/21/17 06:00 01/21/17 06:00 INR, PTT INR 1.47 (0.82-1.09) H 01/20/17 15:30 Problem List - Problems (1) Decubitus skin ulcer Assessment/Plan: Cont with daily wound dressings as ordered. No need for surgical debridement at this time. Monitor Platelets. Offload all pressure sensitive areas. Frequent repositioning. Code(s): L89.90 - PRESSURE ULCER OF UNSPECIFIED SITE, UNSPECIFIED STAGE Qualifiers: Pressure ulcer location: buttock (2) Acute kidney injury superimposed on CKD Code(s): N17.9 - ACUTE KIDNEY FAILURE, UNSPECIFIED N18.9 - CHRONIC KIDNEY DISEASE, UNSPECIFIED (3) Cirrhosis of liver Code(s): K74.60 - UNSPECIFIED CIRRHOSIS OF LIVER Qualifiers: Hepatic cirrhosis type: unspecified hepatic cirrhosis Ascites presence : with ascites Qualified Code(s): K74.60 - Unspecified cirrhosis of liver (4) Thrombocytopenia Code(s): D69.6 - THROMBOCYTOPENIA, UNSPECIFIED
[2017-01-21] MEDS: ALBUTEROL SO4 2.5/IPRATROPIUM 0.5 INH SOL 3 ML VIAL.NEB. NEB PRN ×2 (18:27→23:24)
[2017-01-21] MEDS: ZOLPIDEM TARTRATE 5 MG TABLET PO PRN (21:45)
[2017-01-22] MEDS: HYDROmorphone HCL 2 MG TABLET PO PRN ×3 (04:48→18:21)
[2017-01-22] MEDS: INSULIN DETEMIR 100 UNITS/ML MDV SQ SCH ×2 (06:40→23:13)
[2017-01-22] MEDS: INSULIN SLIDING SCALE (NOVOLOG) 1 VIAL SQ SCH ×4 (06:43→23:13)
[2017-01-22 08:24] LABS: BASOPHIL 0.6 % (0-2.0); EOSINOPHIL 2.9 % (0-4.5); MCH 33.6 pg (25.7-33.7); MCHC 34.6 g/dl (32.0-35.9); MEAN CELL VOLUME 97.2 fl (80-96); MEAN PLT VOLUME 9.7 fl (7.5-11.1); NEUTROPHILS 67.6 % (42.8-82.8); WHITE BLOOD COUNT 3.9 K/mm3 (4.0-10.0)
[2017-01-22 08:31] LABS: PLATELET COUNT 31 K/MM3 (134-434)
[2017-01-22 08:48] LABS: CALCIUM 7.9 mg/dL (8.5-10.1)
[2017-01-22 08:49] LABS: CREATININE 1.9 mg/dL (0.7-1.3); MAGNESIUM 1.6 mg/dL (1.8-2.4); PHOSPHOROUS 3.7 mg/dL (2.5-4.9)
[2017-01-22] MEDS ORDERED: PT OWN MED DRAWER 7, Y5N ONE (09:15)
[2017-01-22] MEDS: PANTOPRAZOLE 40 MG TABLET (FP) PO SCH (09:17)
[2017-01-22] MEDS: METHADONE HCL 10 MG TABLET PO SCH (09:17)
[2017-01-22] MEDS: FUROSEMIDE 40 MG TABLET (FP) PO SCH (09:17)
[2017-01-22] MEDS: GABAPENTIN 100 MG CAPSULE (FP) PO SCH ×2 (09:18→23:00)
[2017-01-22] MEDS: LACTULOSE 20 GM/30 ML UDC (FOR ORAL USE ONLY) PO SCH ×4 (09:18→23:01)
[2017-01-22] MEDS: SILVER SULFADIAZINE 1% TOP CREAM 50 GM JAR TP SCH (09:19)
--- NOTE | 2017-01-22 10:30 | PN ---
Progress Note, Physician Chief Complaint: s/p drain from pleurex cath feeling better but still has discomfort at site of pleurex cath bot is complaining of RLQ pain no fever - Current Medication List Current Medications: Active Medications Albuterol/Ipratropium (Duoneb -) 1 amp NEB Q6H PRN PRN Reason: SHORTNESS OF BREATH Last Admin: 01/21/17 23:24 Dose: 1 amp Furosemide (Lasix -) 60 mg PO DAILY [facility] Last Admin: 01/22/17 09:17 Dose: 60 mg Gabapentin (Neurontin -) 100 mg PO BID [facility] Last Admin: 01/22/17 09:18 Dose: 100 mg Hydromorphone HCl (Dilaudid -) 2 mg PO Q6H PRN PRN Reason: PAIN Last Admin: 01/22/17 04:48 Dose: 2 mg Hydromorphone HCl (Dilaudid -) 2 mg PO Q6H PRN PRN Reason: PAIN Insulin Aspart (Novolog Vial Sliding Scale -) 1 vial SQ ACHS [facility] PRN Reason: Protocol Last Admin: 01/22/17 06:43 Dose: 2 units Insulin Detemir (Levemir Vial) 25 units SQ AM [facility] Last Admin: 01/22/17 06:40 Dose: 25 units Insulin Detemir (Levemir Vial) 25 units SQ HS [facility] Last Admin: 01/21/17 21:49 Dose: 25 units Lactulose (Cephulac (Oral Use)) 30 gm PO QID [facility] Last Admin: 01/22/17 09:18 Dose: 30 gm Methadone HCl (Dolophine -) 10 mg PO DAILY [facility] Last Admin: 01/22/17 09:17 Dose: 10 mg Metoprolol Tartrate (Lopressor -) 25 mg PO BID [facility] Last Admin: 01/14/17 00:35 Dose: 25 mg Pantoprazole Sodium (Protonix -) 40 mg PO DAILY [facility] Last Admin: 01/22/17 09:17 Dose: 40 mg Silver Sulfadiazine (Silvadene -) 1 applic TP DAILY [facility] Last Admin: 01/22/17 09:19 Dose: 1 appful Zolpidem Tartrate (Ambien -) 5 mg PO HS [facility] Last Admin: 01/21/17 21:45 Dose: 5 mg - Objective Vital Signs: Vital Signs Temperature 98.7 F 01/21/17 22:00 Pulse Rate 87 01/21/17 22:00 Respiratory Rate 20 01/21/17 22:00 Blood Pressure 126/67 01/21/17 22:00 O2 Sat by Pulse Oximetry (%) 95 01/21/17 09:00 Constitutional: Yes: Calm, Cachectic Neck: Yes: Trachea Midline Cardiovascular: Yes: Regular Rate and Rhythm, S1, S2 Respiratory: Yes: CTA Bilaterally, Diminished (on right side pleurex cath tenderness at site if pleurex cath) Gastrointestinal: Yes: Soft, Ascites, Hernia, Tenderness (RLQ) Extremities: Yes: Other (chronic changes of legs) Integumentary: Yes: Other (stage 2 decubitus) Neurological: Yes: Alert, Oriented Labs: CBC, BMP 01/22/17 05:40 01/22/17 05:40 INR, PTT INR 1.47 (0.82-1.09) H 01/20/17 15:30 Problem List - Problems (1) Right lower quadrant abdominal pain Assessment/Plan: ct scan to evaluate Code(s): R10.31 - RIGHT LOWER QUADRANT PAIN (2) Pleural effusion Assessment/Plan: s/p pleuirex drain not enough fluid for paracentesis Code(s): J90 - PLEURAL EFFUSION, NOT ELSEWHERE CLASSIFIED (3) Acute kidney injury superimposed on CKD Assessment/Plan: bun/cr will monitor Code(s): N17.9 - ACUTE KIDNEY FAILURE, UNSPECIFIED N18.9 - CHRONIC KIDNEY DISEASE, UNSPECIFIED (4) Cirrhosis of liver Assessment/Plan: rifaximin lactulose for elevated amonia- now trending down Code(s): K74.60 - UNSPECIFIED CIRRHOSIS OF LIVER Qualifiers: Hepatic cirrhosis type: unspecified hepatic cirrhosis Ascites presence : with ascites Qualified Code(s): K74.60 - Unspecified cirrhosis of liver (5) Hyperglycemia Assessment/Plan: bgm noted insulin dose adjusted Code(s): R73.9 - HYPERGLYCEMIA, UNSPECIFIED (6) Type 2 diabetes mellitus with other diabetic neurological complication Assessment/Plan: bgm insulin neurontin Code(s): E11.49 - TYPE 2 DIABETES W OTH DIABETIC NEUROLOGICAL COMPLICATION (7) METHADONE MAINTENANCE Assessment/Plan: on 10mg methadone (8) DVT (deep venous thrombosis) Assessment/Plan: no AC sec to low platelets has IVF filter Code(s): I82.409 - ACUTE EMBOLISM AND THOMBOS UNSP DEEP VN UNSP LOWER EXTREMITY Qualifiers: DVT location: lower extremity Affected thrombotic vein of extremity: femoral Laterality: left Chronicity: acute Qualified Code(s): I82.412 - Acute embolism and thrombosis of left femoral vein (9) Decubitus skin ulcer Assessment/Plan: stage 2 sacrum appreciate wound care note Code(s): L89.90 - PRESSURE ULCER OF UNSPECIFIED SITE, UNSPECIFIED STAGE Qualifiers: Pressure ulcer location: sacral region Pressure ulcer stage: stage 2 Qualified Code(s): L89.152 - Pressure ulcer of sacral region, stage 2 (10) Thrombocytopenia Assessment/Plan: continue to monitor no signs of bleeding Code(s): D69.6 - THROMBOCYTOPENIA, UNSPECIFIED
[2017-01-22] MEDS ORDERED: MAGNESIUM SULF 50% (8.12 MEQ/2 ML-1 GM VIAL) IVPB ONE (12:30)
[2017-01-22] MEDS: MAGNESIUM OXIDE 400 MG TABLET (FP) PO SCH ×2 (14:14→23:01)
--- NOTE | 2017-01-22 14:49 | PN ---
Progress Note (short form) - Note Progress Note: Renal follow up for SHANKAR on CKD Pt seen and examined at the bedside s/p pleural drainage yesterday had abd discomfort from fluid accumulation no sob or chest pain continues to have pain over his right rib cage Vital Signs Temperature 97.6 F 01/22/17 09:00 Pulse Rate 89 01/22/17 11:22 Respiratory Rate 18 01/22/17 09:00 Blood Pressure 143/88 01/22/17 09:00 O2 Sat by Pulse Oximetry (%) 95 01/22/17 11:22 Intake & Output 01/19/17 01/20/17 01/21/17 01/22/17 23:59 23:59 23:59 23:59 Intake Total 1630 1055 765 0 Balance 1630 1055 765 0 Weight 171 lb 8 oz 172 lb 14.4 oz 172 lb 5 oz 170 lb 6 oz Gen: NAD, awake and alert CVS: RRR, No M/R Lungs: dec BS right lung base Abd: Tense Asciteies Ext: + 1 edema in LE CBC, BMP 01/22/17 05:40 01/22/17 05:40 Laboratory Tests 01/22/17 05:40 Calcium 7.9 L Phosphorus 3.7 Magnesium 1.6 L Current Medications Furosemide (Lasix -) 60 mg PO DAILY [facility] Last Admin: 01/22/17 09:17 Dose: 60 mg Gabapentin (Neurontin -) 100 mg PO BID [facility] Last Admin: 01/22/17 09:18 Dose: 100 mg Hydromorphone HCl (Dilaudid -) 2 mg PO Q6H PRN PRN Reason: PAIN Last Admin: 01/22/17 12:23 Dose: 2 mg Insulin Aspart (Novolog Vial Sliding Scale -) 1 vial SQ [facility] PRN Reason: Protocol Last Admin: 01/22/17 11:48 Dose: 5 units Insulin Detemir (Levemir Vial) 25 units SQ AM [facility] Last Admin: 01/22/17 06:40 Dose: 25 units Insulin Detemir (Levemir Vial) 25 units SQ HS [facility] Last Admin: 01/21/17 21:49 Dose: 25 units Lactulose (Cephulac (Oral Use)) 30 gm PO QID [facility] Last Admin: 01/22/17 14:14 Dose: Not Given Magnesium Oxide (Mag-Ox -) 800 mg PO Q8H [facility] Stop: 01/22/17 21:31 Last Admin: 01/22/17 14:14 Dose: 800 mg Methadone HCl (Dolophine -) 10 mg PO DAILY [facility] Last Admin: 01/22/17 09:17 Dose: 10 mg Metoprolol Tartrate (Lopressor -) 25 mg PO BID [facility] Last Admin: 01/14/17 00:35 Dose: 25 mg Pantoprazole Sodium (Protonix -) 40 mg PO DAILY [facility] Last Admin: 01/22/17 09:17 Dose: 40 mg Silver Sulfadiazine (Silvadene -) 1 applic TP DAILY [facility] Last Admin: 01/22/17 09:19 Dose: 1 appful Zolpidem Tartrate (Ambien -) 5 mg PO HS [facility] Last Admin: 01/21/17 21:45 Dose: 5 mg A/P 56 year old woman with PMhx of Hepatitis C with ESLD, CKD (Cr 1.5-17), CAD, DM who presented with AMS and admitted for hepatic encehlopathy and noted to have BUN/Cr of 58/2.2. #Acute on Chronic Renal Insufficiency Renal function now stable around baseline pt tolerating oral diet continue aldactone and Lasix Trend BUN/Cr and electrolytes #Hepatic Encephlopathy/ESLD/Hep C/Ascities continue Lactulose (having 3 BMs daily) if large volume paracentesis is planned consider Alumin to prevent intravascular hypovolmeia #Right Pleural effusion chest tube in place drainage as per pulmonary #Right sided rib fractures pain control Flako Dobson DO
--- NOTE | 2017-01-22 16:15 | PN ---
Progress Note (short form) - Note Progress Note: PULMONARY AMBULATING IN HALLWAY PLEUREX IN PLACE DRAINED ONE LITER YESTERDAY NO SIGNIFICANT CHANGE IN EXAM PATIENT IS REQUESTING HIS GI MD TO RENDER AN OPINION HAVE ORDERED CONSULT WITH DR KEVIN HARGROVE CURRENT MEDS R GREG OLIVER
[2017-01-22] MEDS: ZOLPIDEM TARTRATE 5 MG TABLET PO PRN (23:00)
[2017-01-23] MEDS: HYDROmorphone HCL 2 MG TABLET PO PRN ×4 (04:04→22:48)
[2017-01-23] MEDS: INSULIN DETEMIR 100 UNITS/ML MDV SQ SCH ×2 (06:20→22:44)
[2017-01-23] MEDS: INSULIN SLIDING SCALE (NOVOLOG) 1 VIAL SQ SCH ×4 (06:23→22:45)
[2017-01-23 08:02] LABS: BASOPHIL 0.6 % (0-2.0); EOSINOPHIL 3.4 % (0-4.5); MCH 33.5 pg (25.7-33.7); MCHC 34.6 g/dl (32.0-35.9); MEAN CELL VOLUME 96.8 fl (80-96); MEAN PLT VOLUME 10.3 fl (7.5-11.1); NEUTROPHILS 68.3 % (42.8-82.8); RDW 15.9 % (11.9-15.9); WHITE BLOOD COUNT 4.7 K/mm3 (4.0-10.0)
[2017-01-23 08:07] LABS: PLATELET COUNT 34 K/MM3 (134-434)
[2017-01-23 08:28] LABS: CREATININE 1.8 mg/dL (0.7-1.3); MAGNESIUM 1.9 mg/dL (1.8-2.4); PHOSPHOROUS 3.2 mg/dL (2.5-4.9)
[2017-01-23] MEDS: FUROSEMIDE 40 MG TABLET (FP) PO SCH (10:30)
[2017-01-23] MEDS: SILVER SULFADIAZINE 1% TOP CREAM 50 GM JAR TP SCH (10:30)
[2017-01-23] MEDS: PANTOPRAZOLE 40 MG TABLET (FP) PO SCH (10:30)
[2017-01-23] MEDS: METHADONE HCL 10 MG TABLET PO SCH (10:30)
[2017-01-23] MEDS: GABAPENTIN 100 MG CAPSULE (FP) PO SCH ×2 (10:32→22:45)
[2017-01-23] MEDS: LACTULOSE 20 GM/30 ML UDC (FOR ORAL USE ONLY) PO SCH ×4 (10:32→22:44)
--- NOTE | 2017-01-23 13:09 | PN ---
Progress Note (short form) - Note Progress Note: Overall breathing feels better. No CP. GO evaluation was called. Intake & Output 01/20/17 01/21/17 01/22/17 01/23/17 23:59 23:59 23:59 23:59 Intake Total 7440 543 8031 160 Balance 1050 916 4845 160 Weight 172 lb 14.4 oz 172 lb 5 oz 170 lb 6 oz 169 lb 12.8 oz Last Vital Signs Temp Pulse Resp BP Pulse Ox 99.5 F 85 20 138/83 94 L 01/23/17 10:19 01/23/17 10:19 01/23/17 10:19 01/23/17 10:19 01/23/17 11:00 Active Medications Furosemide (Lasix -) 60 mg PO DAILY [facility] Last Admin: 01/23/17 10:30 Dose: 60 mg Gabapentin (Neurontin -) 100 mg PO BID [facility] Last Admin: 01/23/17 10:32 Dose: 100 mg Hydromorphone HCl (Dilaudid -) 2 mg PO Q6H PRN PRN Reason: PAIN Last Admin: 01/23/17 10:31 Dose: 2 mg Insulin Aspart (Novolog Vial Sliding Scale -) 1 vial SQ ACHS [facility] PRN Reason: Protocol Last Admin: 01/23/17 11:35 Dose: 2 units Insulin Detemir (Levemir Vial) 25 units SQ AM [facility] Last Admin: 01/23/17 06:20 Dose: 25 units Insulin Detemir (Levemir Vial) 25 units SQ HS [facility] Last Admin: 01/22/17 23:13 Dose: 25 units Lactulose (Cephulac (Oral Use)) 30 gm PO QID [facility] Last Admin: 01/23/17 10:32 Dose: 30 gm Methadone HCl (Dolophine -) 10 mg PO DAILY [facility] Last Admin: 01/23/17 10:30 Dose: 10 mg Metoprolol Tartrate (Lopressor -) 25 mg PO BID [facility] Last Admin: 01/14/17 00:35 Dose: 25 mg Pantoprazole Sodium (Protonix -) 40 mg PO DAILY [facility] Last Admin: 01/23/17 10:30 Dose: 40 mg Silver Sulfadiazine (Silvadene -) 1 applic TP DAILY [facility] Last Admin: 01/23/17 10:30 Dose: 1 appful Zolpidem Tartrate (Ambien -) 5 mg PO HS PRN Last Admin: 01/22/17 23:00 Dose: 5 mg Gen: NAD Heart: RRR Lung: decreased breath sounds right, (+) PleureX Abd: soft, distended, nontender, +ascites Ext: trace edema Laboratory Results - last 24 hr 01/22/17 01/22/17 01/23/17 16:30 23:11 06:19 WBC RBC Hgb Hct MCV MCHC RDW Plt Count MPV Neutrophils % Lymphocytes % Monocytes % Eosinophils % Basophils % Sodium Potassium Chloride Carbon Dioxide Anion Gap BUN Creatinine POC Glucometer 294 308 202 Random Glucose Calcium Phosphorus Magnesium 01/23/17 01/23/17 01/23/17 07:30 07:30 11:33 WBC 4.7 RBC 2.92 L Hgb 9.8 L Hct 28.2 L MCV 96.8 H MCHC 34.6 RDW 15.9 Plt Count 34 L* MPV 10.3 Neutrophils % 68.3 Lymphocytes % 16.2 Monocytes % 11.5 H Eosinophils % 3.4 Basophils % 0.6 Sodium 138 Potassium 4.5 Chloride 104 Carbon Dioxide 28 Anion Gap 6 L BUN 47 H Creatinine 1.8 H POC Glucometer 205 Random Glucose 163 H D Calcium 8.0 L Phosphorus 3.2 Magnesium 1.9 A/P Liver Cirrhosis Pleural Effusion/Hepatic Hydrothroax Ascites Acute on Chronic Renal Failure Thrombocytopenia CAD s/p PPM - drain pleur-x drain based on symptoms - diuresis as tolerated - ideally need to control ascites to prevent recurrence of pleural effusion -> GI evaluation called Dr Abbott
--- NOTE | 2017-01-23 14:35 | CON.GI ---
Consult Consult Specialty:: GI Referred by:: Dr Thompson Reason for Consultation:: ESLD - History of Present Illness Chief Complaint: AMS History of Present Illness: Patient well--known to our service with very frequent admissions for problems related to his ESLD, now again admitted for AMS. Patient has been asking for increased pain meds for pain which he states is a the site of his pleurex. - History Source History Provided By: Medical Record, Caregiver Limitations to Obtaining History: Clinical Condition - Past Medical History [employer]OKE [employer]TER: Yes: Other (history of hepatic encephalopathy) Cardio/Vascular: Yes: CAD (reported prior MIs -> stents x4 at [facility] in 1998), HTN , Other (PPM palcement at time of AL in 1998, abnl EKG witth old inferior AL) Pulmonary: Yes: COPD, Other (PLEURAL EFFUSION WITH PREVIOUS thoracentesis and chest tube) Gastrointestinal: Yes: Ascites, Diverticulitis, Esophageal Varices (This patient does NOT have varices), GI Bleed (s/p multiple blood transfusions), Other (gastric varices ) Hepatobiliary: Yes: Cirrhosis (ESLD), Hepatitis C, Other (PORTAL HYPERTENSION) Renal/: Yes: Renal Inusuff (CKD (baseline 0.9-1.1)) Psych: Yes: Addictions (hx of polysubstance abuse & IVDA on maintenance Methadone), Anxiety Endocrine: Yes: Diabetes Mellitus (insulin-dependent) - Past Surgical History Past Surgical History: Yes: Permanent Pacemaker ([employer]), Stent, Upper Endoscopy (with gastric varices/sclerotherapy) - Alcohol/Substance Use Hx Alcohol Use: No History of Substance Use: reports: Heroin (on methadone) - Smoking History Smoking history: Current every day smoker Have you smoked in the past 12 months: Yes Aproximately how many cigarettes per day: 5 - Social History Usual Living Arrangement: Other ( from . The youngest of his 3 children lives with him) ADL: Independent Occupation: not employed History of Recent Travel: No Home Medications - Allergies Allergies/Adverse Reactions: Allergies Allergy/AdvReac Type Severity Reaction Status Date / Time nalbuphine HCl [From Nubain] Allergy Verified 12/31/16 08:19 octreotide AdvReac Verified 12/31/16 08:19 - Home Medications Home Medications: Ambulatory Orders Albuterol 2.5/Ipratropium 0.5 [Duoneb -] 1 amp NEB Q6H PRN #120 amp 10/25/16 Methadone [Dolophine -] 10 mg PO DAILY 11/05/16 Rifaximin [Xifaxan -] 550 mg PO BID #20 tablet 12/31/16 Furosemide [Lasix -] 60 mg PO DAILY #90 tablet 01/07/17 Gabapentin [Neurontin -] 100 mg PO BID #60 capsule 01/07/17 Insulin (Levemir) [Levemir Vial] 15 units SQ HS ml 01/07/17 Insulin (Levemir) [Levemir Vial] 25 units SQ AM ml 01/07/17 Lactulose (Oral Use) [Cephulac -] 20 gm PO QID #2400 gr 01/07/17 Metoprolol Tartrate [Lopressor -] 25 mg PO BID #60 tablet 01/07/17 Pantoprazole Sodium [Protonix -] 40 mg PO DAILY #30 tablet.ec 01/07/17 Rifaximin [Xifaxan -] 550 mg PO BID #60 tablet 01/07/17 Family Disease History - Family Disease History Family Disease History: Heart Disease: Father (OPEN HEART SX,), CA: Mother (BREAST CANCER,) Physical Exam-GI Vital Signs: Vital Signs Temperature 99.5 F 01/23/17 10:19 Pulse Rate 85 01/23/17 10:19 Respiratory Rate 20 01/23/17 10:19 Blood Pressure 138/83 01/23/17 10:19 O2 Sat by Pulse Oximetry (%) 94 L 01/23/17 11:00 Constitutional: Yes: Cachectic HENT: Yes: Normocephalic Cardiovascular: Yes: Regular Rate and Rhythm Respiratory: Yes: CTA Bilaterally Gastrointestinal Inspection: Yes: Ascites ...Auscultate: Yes: Normoactive Bowel Sounds ...Palpate: Yes: Firm/Rigid. No: Tenderness ...Percussion: Yes: Fluid Wave Labs: CBC, BMP 01/23/17 07:30 01/23/17 07:30 INR, PTT INR 1.47 (0.82-1.09) H 01/20/17 15:30 Imaging - Results Cat Scan: Report Reviewed (no significant change from prior) Assessment/Plan 1-ESLD-no significant change from baseline 2-Hepatic hydrothorax-Pleurex should be used regularly to drain excessive pleural fluid/ascites. 3-substance abuse-Patient is frequently medicated for pain while in the hospital and always has medication-seeking behavior. Would refrain from providing much more than his usual methadone as it prevents accurate assessment of his MS.
--- NOTE | 2017-01-23 15:58 | PN ---
Progress Note, Physician Chief Complaint: Patient sitting by his bed. Over all feeling well. No chest pain. No shortness of breath. Maintains good urine out put. Has generalized aches and pains. - Current Medication List Current Medications: Active Medications Furosemide (Lasix -) 60 mg PO DAILY [facility] Last Admin: 01/23/17 10:30 Dose: 60 mg Gabapentin (Neurontin -) 100 mg PO BID [facility] Last Admin: 01/23/17 10:32 Dose: 100 mg Hydromorphone HCl (Dilaudid -) 2 mg PO Q6H PRN PRN Reason: PAIN Last Admin: 01/23/17 10:31 Dose: 2 mg Insulin Aspart (Novolog Vial Sliding Scale -) 1 vial SQ ACHS [facility] PRN Reason: Protocol Last Admin: 01/23/17 11:35 Dose: 2 units Insulin Detemir (Levemir Vial) 25 units SQ AM [facility] Last Admin: 01/23/17 06:20 Dose: 25 units Insulin Detemir (Levemir Vial) 25 units SQ HS [facility] Last Admin: 01/22/17 23:13 Dose: 25 units Lactulose (Cephulac (Oral Use)) 30 gm PO QID [facility] Last Admin: 01/23/17 14:47 Dose: Not Given Methadone HCl (Dolophine -) 10 mg PO DAILY [facility] Last Admin: 01/23/17 10:30 Dose: 10 mg Metoprolol Tartrate (Lopressor -) 25 mg PO BID [facility] Last Admin: 01/14/17 00:35 Dose: 25 mg Pantoprazole Sodium (Protonix -) 40 mg PO DAILY [facility] Last Admin: 01/23/17 10:30 Dose: 40 mg Silver Sulfadiazine (Silvadene -) 1 applic TP DAILY [facility] Last Admin: 01/23/17 10:30 Dose: 1 appful Zolpidem Tartrate (Ambien -) 5 mg PO HS PRN Last Admin: 01/22/17 23:00 Dose: 5 mg - Objective Vital Signs: Vital Signs Temperature 98.3 F 01/23/17 14:47 Pulse Rate 85 01/23/17 14:47 Respiratory Rate 20 01/23/17 14:47 Blood Pressure 113/65 01/23/17 14:47 O2 Sat by Pulse Oximetry (%) 94 L 01/23/17 11:00 Constitutional: Yes: No Distress, Anxious Eyes: Yes: Conjunctiva Clear HENT: Yes: Normocephalic Neck: Yes: Trachea Midline Cardiovascular: Yes: Regular Rate and Rhythm, S1, S2 Respiratory: Yes: Regular, CTA Bilaterally Gastrointestinal: Yes: Normal Bowel Sounds, Soft Extremities: Yes: Erythema Neurological: Yes: Alert, Oriented Psychiatric: Yes: Oriented Labs: CBC, BMP 01/23/17 07:30 01/23/17 07:30 INR, PTT INR 1.47 (0.82-1.09) H 01/20/17 15:30 Problem List - Problems (1) Acute kidney injury superimposed on CKD Code(s): N17.9 - ACUTE KIDNEY FAILURE, UNSPECIFIED N18.9 - CHRONIC KIDNEY DISEASE, UNSPECIFIED (2) Cirrhosis of liver Code(s): K74.60 - UNSPECIFIED CIRRHOSIS OF LIVER Qualifiers: Hepatic cirrhosis type: unspecified hepatic cirrhosis Ascites presence : with ascites Qualified Code(s): K74.60 - Unspecified cirrhosis of liver (3) Decubitus skin ulcer Code(s): L89.90 - PRESSURE ULCER OF UNSPECIFIED SITE, UNSPECIFIED STAGE Qualifiers: Pressure ulcer location: sacral region Pressure ulcer stage: stage 2 Qualified Code(s): L89.152 - Pressure ulcer of sacral region, stage 2 (4) Hyperglycemia Code(s): R73.9 - HYPERGLYCEMIA, UNSPECIFIED (5) Opioid dependence on agonist therapy Code(s): F11.20 - OPIOID DEPENDENCE, UNCOMPLICATED (6) Portal hypertension Code(s): K76.6 - PORTAL HYPERTENSION (7) Radiculopathy Code(s): M54.10 - RADICULOPATHY, SITE UNSPECIFIED (8) Type 2 diabetes mellitus with other diabetic neurological complication Code(s): E11.49 - TYPE 2 DIABETES W OTH DIABETIC NEUROLOGICAL COMPLICATION (9) Sedative dependence Code(s): F13.20 - SEDATIVE, HYPNOTIC OR ANXIOLYTIC DEPENDENCE, UNCOMPLICATED (11) SHANKAR (acute kidney injury) Code(s): N17.9 - ACUTE KIDNEY FAILURE, UNSPECIFIED (12) Abdominal pain Code(s): R10.9 - UNSPECIFIED ABDOMINAL PAIN (13) Anxiety Code(s): F41.9 - ANXIETY DISORDER, UNSPECIFIED (14) Ascites Code(s): R18.8 - OTHER ASCITES Qualifiers: Ascites type: due to alcoholic cirrhosis Qualified Code(s): K70.31 - Alcoholic cirrhosis of liver with ascites (15) Bradycardia Code(s): R00.1 - BRADYCARDIA, UNSPECIFIED (16) CKD (chronic kidney disease) Code(s): N18.9 - CHRONIC KIDNEY DISEASE, UNSPECIFIED Qualifiers: (17) Chronic pain of right lower extremity Code(s): M79.604 - PAIN IN RIGHT LEG G89.29 - OTHER CHRONIC PAIN (18) Congestive heart failure Code(s): I50.9 - HEART FAILURE, UNSPECIFIED (19) DM Diabetes mellitus type 2 Code(s): E11.9 - TYPE 2 DIABETES MELLITUS WITHOUT COMPLICATIONS (20) Hepatitis C virus infection Code(s): B19.20 - UNSPECIFIED VIRAL HEPATITIS C WITHOUT HEPATIC COMA Qualifiers: Viral hepatitis chronicity: chronic Hepatic coma status: without hepatic coma Qualified Code(s): B18.2 - Chronic viral hepatitis C (21) Opiate dependence Code(s): F11.20 - OPIOID DEPENDENCE, UNCOMPLICATED Qualifiers: Substance use status: with unspecified opioid-induced disorder Qualified Code(s): F11.29 - Opioid dependence with unspecified opioid-induced disorder Assessment/Plan Patient with h/o Hep C, drug dependence by History, On Methadon maitainance program. [place]ote[place] slowly improving Today's serum Cr 1.8 mg/ dL Current medications well tolerated. No specific changes at this point. Will monitor the renal functions with you. Marcelle Fernandez MD
--- NOTE | 2017-01-23 16:11 | PN ---
Progress Note, Physician History of Present Illness: C/O GENERALIZED PAIN - Current Medication List Current Medications: Active Medications Furosemide (Lasix -) 60 mg PO DAILY [facility] Last Admin: 01/23/17 10:30 Dose: 60 mg Gabapentin (Neurontin -) 100 mg PO BID [facility] Last Admin: 01/23/17 10:32 Dose: 100 mg Hydromorphone HCl (Dilaudid -) 2 mg PO Q6H PRN PRN Reason: PAIN Last Admin: 01/23/17 10:31 Dose: 2 mg Insulin Aspart (Novolog Vial Sliding Scale -) 1 vial SQ ACHS [facility] PRN Reason: Protocol Last Admin: 01/23/17 11:35 Dose: 2 units Insulin Detemir (Levemir Vial) 25 units SQ AM [facility] Last Admin: 01/23/17 06:20 Dose: 25 units Insulin Detemir (Levemir Vial) 25 units SQ HS [facility] Last Admin: 01/22/17 23:13 Dose: 25 units Lactulose (Cephulac (Oral Use)) 30 gm PO QID [facility] Last Admin: 01/23/17 14:47 Dose: Not Given Methadone HCl (Dolophine -) 10 mg PO DAILY [facility] Last Admin: 01/23/17 10:30 Dose: 10 mg Metoprolol Tartrate (Lopressor -) 25 mg PO BID [facility] Last Admin: 01/14/17 00:35 Dose: 25 mg Pantoprazole Sodium (Protonix -) 40 mg PO DAILY [facility] Last Admin: 01/23/17 10:30 Dose: 40 mg Silver Sulfadiazine (Silvadene -) 1 applic TP DAILY [facility] Last Admin: 01/23/17 10:30 Dose: 1 appful Zolpidem Tartrate (Ambien -) 5 mg PO HS PRN Last Admin: 01/22/17 23:00 Dose: 5 mg - Objective Vital Signs: Vital Signs Temperature 98.3 F 01/23/17 14:47 Pulse Rate 85 01/23/17 14:47 Respiratory Rate 20 01/23/17 14:47 Blood Pressure 113/65 01/23/17 14:47 O2 Sat by Pulse Oximetry (%) 94 L 01/23/17 11:00 Cardiovascular: Yes: Regular Rate and Rhythm Respiratory: Yes: Regular, CTA Bilaterally, Diminished Gastrointestinal: Yes: Normal Bowel Sounds, Soft, Ascites, Distention Labs: CBC, BMP 01/23/17 07:30 01/23/17 07:30 INR, PTT INR 1.47 (0.82-1.09) H 01/20/17 15:30 Problem List - Problems (1) Acute kidney injury superimposed on CKD Code(s): N17.9 - ACUTE KIDNEY FAILURE, UNSPECIFIED N18.9 - CHRONIC KIDNEY DISEASE, UNSPECIFIED (2) Cirrhosis of liver Code(s): K74.60 - UNSPECIFIED CIRRHOSIS OF LIVER Qualifiers: Hepatic cirrhosis type: unspecified hepatic cirrhosis Ascites presence : with ascites Qualified Code(s): K74.60 - Unspecified cirrhosis of liver (3) Type 2 diabetes mellitus with other diabetic neurological complication Code(s): E11.49 - TYPE 2 DIABETES W OTH DIABETIC NEUROLOGICAL COMPLICATION (4) Altered mental status Code(s): R41.82 - ALTERED MENTAL STATUS, UNSPECIFIED Qualifiers: Altered mental status type: disorientation Qualified Code(s): R41.0 - Disorientation, unspecified (5) DVT (deep venous thrombosis) Code(s): I82.409 - ACUTE EMBOLISM AND THOMBOS UNSP DEEP VN UNSP LOWER EXTREMITY Qualifiers: DVT location: lower extremity Affected thrombotic vein of extremity: femoral Laterality: left Chronicity: acute Qualified Code(s): I82.412 - Acute embolism and thrombosis of left femoral vein (7) Pleural effusion associated with hepatic disorder Code(s): K76.9 - LIVER DISEASE, UNSPECIFIED J91.8 - PLEURAL EFFUSION IN OTHER CONDITIONS CLASSIFIED ELSEWHERE Assessment/Plan Problems (1) Right lower quadrant abdominal pain Assessment/Plan: ct scan to evaluate Code(s): R10.31 - RIGHT LOWER QUADRANT PAIN (2) Pleural effusion Assessment/Plan: s/p pleuirex drain not enough fluid for paracentesis Code(s): J90 - PLEURAL EFFUSION, NOT ELSEWHERE CLASSIFIED (3) Acute kidney injury superimposed on CKD Assessment/Plan: bun/cr will monitor Code(s): N17.9 - ACUTE KIDNEY FAILURE, UNSPECIFIED N18.9 - CHRONIC KIDNEY DISEASE, UNSPECIFIED (4) Cirrhosis of liver Assessment/Plan: rifaximin lactulose for elevated ammonia- now trending down Code(s): K74.60 - UNSPECIFIED CIRRHOSIS OF LIVER Qualifiers: Hepatic cirrhosis type: unspecified hepatic cirrhosis Ascites presence : with ascites Qualified Code(s): K74.60 - Unspecified cirrhosis of liver (5) Hyperglycemia Assessment/Plan: bgm noted insulin dose adjusted Code(s): R73.9 - HYPERGLYCEMIA, UNSPECIFIED (6) Type 2 diabetes mellitus with other diabetic neurological complication Assessment/Plan: bgm insulin neurontin Code(s): E11.49 - TYPE 2 DIABETES W OTH DIABETIC NEUROLOGICAL COMPLICATION (7) METHADONE MAINTENANCE Assessment/Plan: on 10mg methadone (8) DVT (deep venous thrombosis) Assessment/Plan: no AC sec to low platelets has IVC filter Code(s): I82.409 - ACUTE EMBOLISM AND THOMBOS UNSP DEEP VN UNSP LOWER EXTREMITY Qualifiers: DVT location: lower extremity Affected thrombotic vein of extremity: femoral Laterality: left Chronicity: acute Qualified Code(s): I82.412 - Acute embolism and thrombosis of left femoral vein (9) Decubitus skin ulcer Assessment/Plan: stage 2 sacrum appreciate wound care note Code(s): L89.90 - PRESSURE ULCER OF UNSPECIFIED SITE, UNSPECIFIED STAGE Qualifiers: Pressure ulcer location: sacral region Pressure ulcer stage: stage 2 Qualified Code(s): L89.152 - Pressure ulcer of sacral region, stage 2 (10) Thrombocytopenia Assessment/Plan: continue to monitor no signs of bleeding Code(s): D69.6 - THROMBOCYTOPENIA, UNSPECIFIED
[2017-01-23] MEDS ORDERED: PT OWN MED DRAWER 7, Y5N ONE ×2 (18:04→22:40)
[2017-01-23] MEDS ORDERED: INSULIN (NOVOLOG) ASPART 100 UNITS/ML 10ML VIAL ONE ×2 (18:04→22:39)
[2017-01-23] MEDS: ZOLPIDEM TARTRATE 5 MG TABLET PO PRN (22:45)
[2017-01-24] MEDS: INSULIN SLIDING SCALE (NOVOLOG) 1 VIAL SQ SCH ×4 (06:35→21:51)
[2017-01-24] MEDS: INSULIN DETEMIR 100 UNITS/ML MDV SQ SCH ×2 (06:35→21:50)
[2017-01-24] MEDS ORDERED: INSULIN DETEMIR 100 UNITS/ML MDV SQ ONE (06:42)
[2017-01-24] MEDS ORDERED: INSULIN (NOVOLOG) ASPART 100 UNITS/ML 10ML VIAL ONE ×3 (06:42→21:12)
[2017-01-24] MEDS: HYDROmorphone HCL 2 MG TABLET PO PRN ×3 (08:37→20:40)
[2017-01-24] MEDS: FUROSEMIDE 40 MG TABLET (FP) PO SCH (09:21)
[2017-01-24] MEDS: GABAPENTIN 100 MG CAPSULE (FP) PO SCH ×2 (09:22→21:49)
[2017-01-24] MEDS: PANTOPRAZOLE 40 MG TABLET (FP) PO SCH (09:22)
[2017-01-24] MEDS: METHADONE HCL 10 MG TABLET PO SCH (09:22)
--- NOTE | 2017-01-24 09:23 | PN ---
Progress Note, Physician History of Present Illness: C/O GENERALIZED PAIN - Current Medication List Current Medications: Active Medications Furosemide (Lasix -) 60 mg PO DAILY [facility] Last Admin: 01/23/17 10:30 Dose: 60 mg Gabapentin (Neurontin -) 100 mg PO BID [facility] Last Admin: 01/23/17 22:45 Dose: 100 mg Hydromorphone HCl (Dilaudid -) 2 mg PO Q6H PRN PRN Reason: PAIN Last Admin: 01/24/17 08:37 Dose: 2 mg Insulin Aspart (Novolog Vial Sliding Scale -) 1 vial SQ ACHS [facility] PRN Reason: Protocol Last Admin: 01/24/17 06:35 Dose: Not Given Insulin Detemir (Levemir Vial) 25 units SQ AM [facility] Last Admin: 01/24/17 06:35 Dose: 25 units Insulin Detemir (Levemir Vial) 25 units SQ HS [facility] Last Admin: 01/23/17 22:44 Dose: 25 units Methadone HCl (Dolophine -) 10 mg PO DAILY [facility] Last Admin: 01/23/17 10:30 Dose: 10 mg Metoprolol Tartrate (Lopressor -) 25 mg PO BID [facility] Last Admin: 01/14/17 00:35 Dose: 25 mg Pantoprazole Sodium (Protonix -) 40 mg PO DAILY [facility] Last Admin: 01/23/17 10:30 Dose: 40 mg Silver Sulfadiazine (Silvadene -) 1 applic TP DAILY [facility] Last Admin: 01/23/17 10:30 Dose: 1 appful Zolpidem Tartrate (Ambien -) 5 mg PO HS PRN Last Admin: 01/23/17 22:45 Dose: 5 mg - Objective Vital Signs: Vital Signs Temperature 97.6 F 01/24/17 02:01 Pulse Rate 84 01/24/17 02:01 Respiratory Rate 20 01/24/17 02:01 Blood Pressure 126/62 01/24/17 02:01 O2 Sat by Pulse Oximetry (%) 95 01/23/17 21:00 Cardiovascular: Yes: Regular Rate and Rhythm Respiratory: Yes: Regular, Diminished Gastrointestinal: Yes: Normal Bowel Sounds, Soft, Ascites Labs: CBC, BMP 01/23/17 07:30 01/23/17 07:30 INR, PTT INR 1.47 (0.82-1.09) H 01/20/17 15:30 Problem List - Problems (1) Acute kidney injury superimposed on CKD Code(s): N17.9 - ACUTE KIDNEY FAILURE, UNSPECIFIED N18.9 - CHRONIC KIDNEY DISEASE, UNSPECIFIED (2) Cirrhosis of liver Code(s): K74.60 - UNSPECIFIED CIRRHOSIS OF LIVER Qualifiers: Hepatic cirrhosis type: unspecified hepatic cirrhosis Ascites presence : with ascites Qualified Code(s): K74.60 - Unspecified cirrhosis of liver (3) Type 2 diabetes mellitus with other diabetic neurological complication Code(s): E11.49 - TYPE 2 DIABETES W OTH DIABETIC NEUROLOGICAL COMPLICATION (4) Altered mental status Code(s): R41.82 - ALTERED MENTAL STATUS, UNSPECIFIED Qualifiers: Altered mental status type: disorientation Qualified Code(s): R41.0 - Disorientation, unspecified (5) DVT (deep venous thrombosis) Code(s): I82.409 - ACUTE EMBOLISM AND THOMBOS UNSP DEEP VN UNSP LOWER EXTREMITY Qualifiers: DVT location: lower extremity Affected thrombotic vein of extremity: femoral Laterality: left Chronicity: acute Qualified Code(s): I82.412 - Acute embolism and thrombosis of left femoral vein (7) Pleural effusion associated with hepatic disorder Code(s): K76.9 - LIVER DISEASE, UNSPECIFIED J91.8 - PLEURAL EFFUSION IN OTHER CONDITIONS CLASSIFIED ELSEWHERE Assessment/Plan Problems (1) Right lower quadrant abdominal pain Assessment/Plan: ct scan to evaluate Code(s): R10.31 - RIGHT LOWER QUADRANT PAIN (2) Pleural effusion Assessment/Plan: s/p pleuirex drain not enough fluid for paracentesis Code(s): J90 - PLEURAL EFFUSION, NOT ELSEWHERE CLASSIFIED (3) Acute kidney injury superimposed on CKD Assessment/Plan: bun/cr will monitor Code(s): N17.9 - ACUTE KIDNEY FAILURE, UNSPECIFIED N18.9 - CHRONIC KIDNEY DISEASE, UNSPECIFIED (4) Cirrhosis of liver Assessment/Plan: rifaximin lactulose for elevated ammonia- now trending down Code(s): K74.60 - UNSPECIFIED CIRRHOSIS OF LIVER Qualifiers: Hepatic cirrhosis type: unspecified hepatic cirrhosis Ascites presence : with ascites Qualified Code(s): K74.60 - Unspecified cirrhosis of liver (5) Hyperglycemia Assessment/Plan: bgm noted insulin dose adjusted Code(s): R73.9 - HYPERGLYCEMIA, UNSPECIFIED (6) Type 2 diabetes mellitus with other diabetic neurological complication Assessment/Plan: bgm insulin neurontin Code(s): E11.49 - TYPE 2 DIABETES W OTH DIABETIC NEUROLOGICAL COMPLICATION (7) METHADONE MAINTENANCE Assessment/Plan: on 10mg methadone (8) DVT (deep venous thrombosis) Assessment/Plan: no AC sec to low platelets has IVC filter Code(s): I82.409 - ACUTE EMBOLISM AND THOMBOS UNSP DEEP VN UNSP LOWER EXTREMITY Qualifiers: DVT location: lower extremity Affected thrombotic vein of extremity: femoral Laterality: left Chronicity: acute Qualified Code(s): I82.412 - Acute embolism and thrombosis of left femoral vein (9) Decubitus skin ulcer Assessment/Plan: stage 2 sacrum appreciate wound care note Code(s): L89.90 - PRESSURE ULCER OF UNSPECIFIED SITE, UNSPECIFIED STAGE Qualifiers: Pressure ulcer location: sacral region Pressure ulcer stage: stage 2 Qualified Code(s): L89.152 - Pressure ulcer of sacral region, stage 2 (10) Thrombocytopenia Assessment/Plan: continue to monitor no signs of bleeding Code(s): D69.6 - THROMBOCYTOPENIA, UNSPECIFIED
[2017-01-24] MEDS: LACTULOSE 20 GM/30 ML UDC (FOR ORAL USE ONLY) PO SCH ×2 (09:28→21:49)
--- NOTE | 2017-01-24 12:04 | PN ---
Progress Note (short form) - Note Progress Note: Overall breathing feels better. 1 Liter was drained this AM. No CP. Intake & Output 01/21/17 01/22/17 01/23/17 01/24/17 23:59 23:59 23:59 23:59 Intake Total 765 1950 360 Output Total 1001 Balance 765 1950 360 -1001 Weight 172 lb 5 oz 170 lb 6 oz 169 lb 12.8 oz 171 lb 6.4 oz Last Vital Signs Temp Pulse Resp BP Pulse Ox 97.6 F 84 20 126/62 95 01/24/17 02:01 01/24/17 02:01 01/24/17 02:01 01/24/17 02:01 01/23/17 21:00 Active Medications Furosemide (Lasix -) 60 mg PO DAILY [facility] Last Admin: 01/24/17 09:21 Dose: 60 mg Gabapentin (Neurontin -) 100 mg PO BID [facility] Last Admin: 01/24/17 09:22 Dose: 100 mg Hydromorphone HCl (Dilaudid -) 2 mg PO Q6H PRN PRN Reason: PAIN Last Admin: 01/24/17 08:37 Dose: 2 mg Insulin Aspart (Novolog Vial Sliding Scale -) 1 vial SQ ACHS [facility] PRN Reason: Protocol Last Admin: 01/24/17 11:16 Dose: Not Given Insulin Detemir (Levemir Vial) 25 units SQ AM [facility] Last Admin: 01/24/17 06:35 Dose: 25 units Insulin Detemir (Levemir Vial) 25 units SQ HS [facility] Last Admin: 01/23/17 22:44 Dose: 25 units Lactulose (Cephulac (Oral Use)) 30 gm PO BID [facility] Last Admin: 01/24/17 09:28 Dose: 30 gm Methadone HCl (Dolophine -) 10 mg PO DAILY [facility] Last Admin: 01/24/17 09:22 Dose: 10 mg Metoprolol Tartrate (Lopressor -) 25 mg PO BID [facility] Last Admin: 01/14/17 00:35 Dose: 25 mg Pantoprazole Sodium (Protonix -) 40 mg PO DAILY [facility] Last Admin: 01/24/17 09:22 Dose: 40 mg Silver Sulfadiazine (Silvadene -) 1 applic TP DAILY [facility] Last Admin: 01/23/17 10:30 Dose: 1 appful Zolpidem Tartrate (Ambien -) 5 mg PO HS PRN Last Admin: 01/23/17 22:45 Dose: 5 mg Gen: NAD Heart: RRR Lung: decreased breath sounds right, (+) PleureX Abd: soft, distended, nontender, +ascites Ext: trace edema Laboratory Results - last 24 hr 01/23/17 01/23/17 01/24/17 16:59 22:43 06:33 POC Glucometer 232 263 156 01/24/17 11:14 POC Glucometer 145 A/P Liver Cirrhosis Pleural Effusion/Hepatic Hydrothroax Ascites Acute on Chronic Renal Failure Thrombocytopenia CAD s/p PPM - drain pleur-x drain based on symptoms - diuresis as tolerated - ideally need to control ascites to prevent recurrence of pleural effusion -> GI evaluation called Dr Abbott
[2017-01-24] MEDS: SILVER SULFADIAZINE 1% TOP CREAM 50 GM JAR TP SCH (14:55)
--- NOTE | 2017-01-24 15:37 | PN ---
GI Progress Note Subjective: Patient up in bed watching TV Appears cachectic - Objective Vital Signs: Vital Signs Temperature 98.3 F 01/24/17 13:55 Pulse Rate 85 01/24/17 13:55 Respiratory Rate 17 01/24/17 13:55 Blood Pressure 129/80 01/24/17 13:55 O2 Sat by Pulse Oximetry (%) 97 01/24/17 09:00 Constitutional: Cachectic HENT: Yes: Normocephalic Neck: Yes: Supple Cardiovascular: Yes: Regular Rate and Rhythm Respiratory: Yes: CTA Bilaterally Gastrointestinal Inspection: Yes: Ascites ...Auscultate: Yes: Normoactive Bowel Sounds ...Palpate: Yes: Soft. No: Tenderness ...Percussion: Yes: Fluid Wave Neurological: Yes: Confusion (mild) Labs: CBC, BMP 01/23/17 07:30 01/23/17 07:30 INR, PTT INR 1.47 (0.82-1.09) H 01/20/17 15:30 Hepatic Panel Total Bilirubin 1.4 mg/dL (0.2-1.0) H 01/19/17 06:20 AST 53 U/L (15-37) H D 01/19/17 06:20 ALT 41 U/L (12-78) 01/19/17 06:20 Alkaline Phosphatase 308 U/L (45-117) H 01/19/17 06:20 Albumin 2.4 g/dl (3.4-5.0) L 01/19/17 06:20 Assessment/Plan 1-ESLD-no significant change from baseline 2-Hepatic hydrothorax-Pleurex should be used regularly to drain excessive pleural fluid/ascites. 3-substance abuse-Patient is frequently medicated for pain while in the hospital and always has medication-seeking behavior. Would refrain from providing much more than his usual methadone as it prevents accurate assessment of his MS. 4-Patient needs NH placement. I discussed this with him and he seemed receptive. He can no longer care for himself and is frequently admitted for problems related to his ESLD. He should be encouraged to transition to NH
[2017-01-24] MEDS: ZOLPIDEM TARTRATE 5 MG TABLET PO PRN (21:49)
[2017-01-25] MEDS: HYDROmorphone HCL 2 MG TABLET PO PRN ×4 (03:22→22:05)
[2017-01-25] MEDS: INSULIN DETEMIR 100 UNITS/ML MDV SQ SCH ×2 (06:38→22:07)
[2017-01-25] MEDS: INSULIN SLIDING SCALE (NOVOLOG) 1 VIAL SQ SCH ×4 (06:39→22:08)
[2017-01-25] MEDS ORDERED: PT OWN MED DRAWER 7, Y5N ONE (06:46)
[2017-01-25] MEDS ORDERED: INSULIN (NOVOLOG) ASPART 100 UNITS/ML 10ML VIAL ONE (06:46)
[2017-01-25 07:49] LABS: BASOPHIL 0.5 % (0-2.0); EOSINOPHIL 2.5 % (0-4.5); MCH 33.3 pg (25.7-33.7); MEAN CELL VOLUME 97.8 fl (80-96); MEAN PLT VOLUME 9.9 fl (7.5-11.1); NEUTROPHILS 72.4 % (42.8-82.8); RDW 15.3 % (11.9-15.9); WHITE BLOOD COUNT 3.3 K/mm3 (4.0-10.0)
[2017-01-25 08:16] LABS: PLATELET COUNT 29 K/MM3 (134-434)
--- NOTE | 2017-01-25 09:11 | PN ---
Progress Note, Physician History of Present Illness: C/O GENERALIZED PAIN - Current Medication List Current Medications: Active Medications Furosemide (Lasix -) 60 mg PO DAILY [facility] Last Admin: 01/24/17 09:21 Dose: 60 mg Gabapentin (Neurontin -) 100 mg PO BID [facility] Last Admin: 01/24/17 21:49 Dose: 100 mg Hydromorphone HCl (Dilaudid -) 2 mg PO Q6H PRN PRN Reason: PAIN Last Admin: 01/25/17 03:22 Dose: 2 mg Insulin Aspart (Novolog Vial Sliding Scale -) 1 vial SQ ACHS [facility] PRN Reason: Protocol Last Admin: 01/25/17 06:39 Dose: 2 units Insulin Detemir (Levemir Vial) 25 units SQ AM [facility] Last Admin: 01/25/17 06:38 Dose: 25 units Insulin Detemir (Levemir Vial) 25 units SQ HS [facility] Last Admin: 01/24/17 21:50 Dose: 25 units Lactulose (Cephulac (Oral Use)) 30 gm PO BID [facility] Last Admin: 01/24/17 21:49 Dose: Not Given Methadone HCl (Dolophine -) 10 mg PO DAILY [facility] Last Admin: 01/24/17 09:22 Dose: 10 mg Metoprolol Tartrate (Lopressor -) 25 mg PO BID [facility] Last Admin: 01/14/17 00:35 Dose: 25 mg Pantoprazole Sodium (Protonix -) 40 mg PO DAILY [facility] Last Admin: 01/24/17 09:22 Dose: 40 mg Silver Sulfadiazine (Silvadene -) 1 applic TP DAILY [facility] Last Admin: 01/24/17 14:55 Dose: 1 appful Zolpidem Tartrate (Ambien -) 5 mg PO HS PRN Last Admin: 01/24/17 21:49 Dose: 5 mg - Objective Vital Signs: Vital Signs Temperature 98.9 F 01/25/17 06:00 Pulse Rate 89 01/25/17 06:00 Respiratory Rate 18 01/25/17 06:00 Blood Pressure 107/74 01/25/17 06:00 O2 Sat by Pulse Oximetry (%) 97 01/24/17 21:00 Cardiovascular: Yes: S1, S2 Respiratory: Yes: Diminished Gastrointestinal: Yes: Normal Bowel Sounds, Soft, Ascites, Distention Labs: CBC, BMP 01/25/17 05:31 01/25/17 05:31 INR, PTT INR 1.47 (0.82-1.09) H 01/20/17 15:30 Problem List - Problems (1) Acute kidney injury superimposed on CKD Code(s): N17.9 - ACUTE KIDNEY FAILURE, UNSPECIFIED N18.9 - CHRONIC KIDNEY DISEASE, UNSPECIFIED (2) Cirrhosis of liver Code(s): K74.60 - UNSPECIFIED CIRRHOSIS OF LIVER Qualifiers: Hepatic cirrhosis type: unspecified hepatic cirrhosis Ascites presence : with ascites Qualified Code(s): K74.60 - Unspecified cirrhosis of liver (3) Type 2 diabetes mellitus with other diabetic neurological complication Code(s): E11.49 - TYPE 2 DIABETES W OTH DIABETIC NEUROLOGICAL COMPLICATION (4) Altered mental status Code(s): R41.82 - ALTERED MENTAL STATUS, UNSPECIFIED Qualifiers: Altered mental status type: disorientation Qualified Code(s): R41.0 - Disorientation, unspecified (5) DVT (deep venous thrombosis) Code(s): I82.409 - ACUTE EMBOLISM AND THOMBOS UNSP DEEP VN UNSP LOWER EXTREMITY Qualifiers: DVT location: lower extremity Affected thrombotic vein of extremity: femoral Laterality: left Chronicity: acute Qualified Code(s): I82.412 - Acute embolism and thrombosis of left femoral vein (7) Pleural effusion associated with hepatic disorder Code(s): K76.9 - LIVER DISEASE, UNSPECIFIED J91.8 - PLEURAL EFFUSION IN OTHER CONDITIONS CLASSIFIED ELSEWHERE Assessment/Plan Problems (1) Right lower quadrant abdominal pain Assessment/Plan: ct scan to evaluate Code(s): R10.31 - RIGHT LOWER QUADRANT PAIN (2) Pleural effusion Assessment/Plan: s/p pleuirex drain not enough fluid for paracentesis Code(s): J90 - PLEURAL EFFUSION, NOT ELSEWHERE CLASSIFIED (3) Acute kidney injury superimposed on CKD Assessment/Plan: bun/cr will monitor Code(s): N17.9 - ACUTE KIDNEY FAILURE, UNSPECIFIED N18.9 - CHRONIC KIDNEY DISEASE, UNSPECIFIED (4) Cirrhosis of liver Assessment/Plan: rifaximin lactulose for elevated ammonia- now trending down Code(s): K74.60 - UNSPECIFIED CIRRHOSIS OF LIVER Qualifiers: Hepatic cirrhosis type: unspecified hepatic cirrhosis Ascites presence : with ascites Qualified Code(s): K74.60 - Unspecified cirrhosis of liver (5) Hyperglycemia Assessment/Plan: bgm noted insulin dose adjusted Code(s): R73.9 - HYPERGLYCEMIA, UNSPECIFIED (6) Type 2 diabetes mellitus with other diabetic neurological complication Assessment/Plan: bgm insulin neurontin Code(s): E11.49 - TYPE 2 DIABETES W OTH DIABETIC NEUROLOGICAL COMPLICATION (7) METHADONE MAINTENANCE Assessment/Plan: will maintain on10mg methadone for pain management while tapering off narcotics (8) DVT (deep venous thrombosis) Assessment/Plan: no AC sec to low platelets has IVC filter Code(s): I82.409 - ACUTE EMBOLISM AND THOMBOS UNSP DEEP VN UNSP LOWER EXTREMITY Qualifiers: DVT location: lower extremity Affected thrombotic vein of extremity: femoral Laterality: left Chronicity: acute Qualified Code(s): I82.412 - Acute embolism and thrombosis of left femoral vein (9) Decubitus skin ulcer Assessment/Plan: stage 2 sacrum appreciate wound care note Code(s): L89.90 - PRESSURE ULCER OF UNSPECIFIED SITE, UNSPECIFIED STAGE Qualifiers: Pressure ulcer location: sacral region Pressure ulcer stage: stage 2 Qualified Code(s): L89.152 - Pressure ulcer of sacral region, stage 2 (10) Thrombocytopenia Assessment/Plan: continue to monitor no signs of bleeding Code(s): D69.6 - THROMBOCYTOPENIA, UNSPECIFIED
[2017-01-25] MEDS: LACTULOSE 20 GM/30 ML UDC (FOR ORAL USE ONLY) PO SCH ×2 (09:33→22:06)
[2017-01-25] MEDS: FUROSEMIDE 40 MG TABLET (FP) PO SCH (09:33)
[2017-01-25] MEDS: PANTOPRAZOLE 40 MG TABLET (FP) PO SCH (09:34)
[2017-01-25] MEDS: GABAPENTIN 100 MG CAPSULE (FP) PO SCH ×2 (09:34→22:08)
[2017-01-25] MEDS: METHADONE HCL 10 MG TABLET PO SCH (09:34)
[2017-01-25] MEDS: SILVER SULFADIAZINE 1% TOP CREAM 50 GM JAR TP SCH (09:46)
--- NOTE | 2017-01-25 14:59 | PN ---
Progress Note, Physician History of Present Illness: PULMONARY ALERT,COMFORTABLE NAD,-SOB - Current Medication List Current Medications: Active Medications Furosemide (Lasix -) 60 mg PO DAILY [facility] Last Admin: 01/25/17 09:33 Dose: 60 mg Gabapentin (Neurontin -) 100 mg PO BID [facility] Last Admin: 01/25/17 09:34 Dose: 100 mg Hydromorphone HCl (Dilaudid -) 2 mg PO Q6H PRN PRN Reason: PAIN Last Admin: 01/25/17 09:46 Dose: 2 mg Insulin Aspart (Novolog Vial Sliding Scale -) 1 vial SQ ACHS [facility] PRN Reason: Protocol Last Admin: 01/25/17 13:22 Dose: Not Given Insulin Detemir (Levemir Vial) 25 units SQ AM [facility] Last Admin: 01/25/17 06:38 Dose: 25 units Insulin Detemir (Levemir Vial) 25 units SQ HS [facility] Last Admin: 01/24/17 21:50 Dose: 25 units Lactulose (Cephulac (Oral Use)) 30 gm PO BID [facility] Last Admin: 01/25/17 09:33 Dose: 30 gm Methadone HCl (Dolophine -) 10 mg PO DAILY [facility] Last Admin: 01/25/17 09:34 Dose: 10 mg Metoprolol Tartrate (Lopressor -) 25 mg PO BID [facility] Last Admin: 01/14/17 00:35 Dose: 25 mg Pantoprazole Sodium (Protonix -) 40 mg PO DAILY [facility] Last Admin: 01/25/17 09:34 Dose: 40 mg Silver Sulfadiazine (Silvadene -) 1 applic TP DAILY [facility] Last Admin: 01/25/17 09:46 Dose: 1 appful Zolpidem Tartrate (Ambien -) 5 mg PO HS PRN Last Admin: 01/24/17 21:49 Dose: 5 mg - Objective Vital Signs: Vital Signs Temperature 98.6 F 01/25/17 14:40 Pulse Rate 86 01/25/17 14:40 Respiratory Rate 20 01/25/17 14:40 Blood Pressure 126/72 01/25/17 14:40 O2 Sat by Pulse Oximetry (%) 98 01/25/17 09:00 Constitutional: Yes: Well Nourished, Calm Eyes: Yes: WNL HENT: Yes: WNL Neck: Yes: WNL Cardiovascular: Yes: Regular Rate and Rhythm, S1, S2 Respiratory: Yes: Diminished (DIMINISHED BS R) Gastrointestinal: Yes: Normal Bowel Sounds, Ascites Extremities: Yes: WNL Edema: No Labs: CBC, BMP 01/25/17 05:31 01/25/17 05:31 INR, PTT INR 1.47 (0.82-1.09) H 01/20/17 15:30 Problem List - Problems (1) Acute kidney injury superimposed on CKD Code(s): N17.9 - ACUTE KIDNEY FAILURE, UNSPECIFIED N18.9 - CHRONIC KIDNEY DISEASE, UNSPECIFIED (2) Cirrhosis of liver Code(s): K74.60 - UNSPECIFIED CIRRHOSIS OF LIVER Qualifiers: Hepatic cirrhosis type: unspecified hepatic cirrhosis Ascites presence : with ascites Qualified Code(s): K74.60 - Unspecified cirrhosis of liver (3) Hyperglycemia Code(s): R73.9 - HYPERGLYCEMIA, UNSPECIFIED (4) Portal hypertension Code(s): K76.6 - PORTAL HYPERTENSION (5) Type 2 diabetes mellitus with other diabetic neurological complication Code(s): E11.49 - TYPE 2 DIABETES W H DIABETIC NEUROLOGICAL COMPLICATION (6) Acute on chronic renal failure Code(s): N17.9 - ACUTE KIDNEY FAILURE, UNSPECIFIED N18.9 - CHRONIC KIDNEY DISEASE, UNSPECIFIED (7) Altered mental status Code(s): R41.82 - ALTERED MENTAL STATUS, UNSPECIFIED Qualifiers: Altered mental status type: disorientation Qualified Code(s): R41.0 - Disorientation, unspecified (8) Ascites Code(s): R18.8 - OTHER ASCITES Qualifiers: Ascites type: due to alcoholic cirrhosis Qualified Code(s): K70.31 - Alcoholic cirrhosis of liver with ascites (9) Esophageal varices Code(s): I85.00 - ESOPHAGEAL VARICES WITHOUT BLEEDING Qualifiers: Esophageal varices type: secondary Esophageal varices bleeding: without bleeding Qualified Code(s): I85.10 - Secondary esophageal varices without bleeding (10) Hepatic encephalopathy Code(s): K72.90 - HEPATIC FAILURE, UNSPECIFIED WITHOUT COMA (11) Hydrothorax Code(s): J94.8 - OTHER SPECIFIED PLEURAL CONDITIONS (12) Pleural effusion associated with hepatic disorder Code(s): K76.9 - LIVER DISEASE, UNSPECIFIED J91.8 - PLEURAL EFFUSION IN OTHER CONDITIONS CLASSIFIED ELSEWHERE (13) Thrombocytopenia Code(s): D69.6 - THROMBOCYTOPENIA, UNSPECIFIED Assessment/Plan IMP DYSPNEA IMPROVED INCREASING R PLEURAL EFFUSION S/P PLEUR-X HEPATIC ENCEPHALOPATHY ASCITES ASHD S/P DC S/P PPM ACUTE ON CHRONIC RENAL FAILURE ASTHMA THROMBOCYTOPENIA PLAN PLEURAL FLUID DRAINAGE VIA PLEUR-X O2 DAILY WTS DR COLEY Problem List - Problems (1) Acute kidney injury superimposed on CKD Code(s): N17.9 - ACUTE KIDNEY FAILURE, UNSPECIFIED N18.9 - CHRONIC KIDNEY DISEASE, UNSPECIFIED (2) Cirrhosis of liver Code(s): K74.60 - UNSPECIFIED CIRRHOSIS OF LIVER Qualifiers: Hepatic cirrhosis type: unspecified hepatic cirrhosis Ascites presence : with ascites Qualified Code(s): K74.60 - Unspecified cirrhosis of liver (3) Hyperglycemia Code(s): R73.9 - HYPERGLYCEMIA, UNSPECIFIED (4) Portal hypertension Code(s): K76.6 - PORTAL HYPERTENSION (5) Type 2 diabetes mellitus with other diabetic neurological complication Code(s): E11.49 - TYPE 2 DIABETES W H DIABETIC NEUROLOGICAL COMPLICATION (6) Acute on chronic renal failure Code(s): N17.9 - ACUTE KIDNEY FAILURE, UNSPECIFIED N18.9 - CHRONIC KIDNEY DISEASE, UNSPECIFIED (7) Altered mental status Code(s): R41.82 - ALTERED MENTAL STATUS, UNSPECIFIED Qualifiers: Altered mental status type: disorientation Qualified Code(s): R41.0 - Disorientation, unspecified (8) Ascites Code(s): R18.8 - OTHER ASCITES Qualifiers: Ascites type: due to alcoholic cirrhosis Qualified Code(s): K70.31 - Alcoholic cirrhosis of liver with ascites (9) Esophageal varices Code(s): I85.00 - ESOPHAGEAL VARICES WITHOUT BLEEDING Qualifiers: Esophageal varices type: secondary Esophageal varices bleeding: without bleeding Qualified Code(s): I85.10 - Secondary esophageal varices without bleeding (10) Hepatic encephalopathy Code(s): K72.90 - HEPATIC FAILURE, UNSPECIFIED WITHOUT COMA (11) Hydrothorax Code(s): J94.8 - OTHER SPECIFIED PLEURAL CONDITIONS (12) Pleural effusion associated with hepatic disorder Code(s): K76.9 - LIVER DISEASE, UNSPECIFIED J91.8 - PLEURAL EFFUSION IN OTHER CONDITIONS CLASSIFIED ELSEWHERE (13) Thrombocytopenia Code(s): D69.6 - THROMBOCYTOPENIA, UNSPECIFIED
--- NOTE | 2017-01-25 16:14 | PN ---
Progress Note (short form) - Note Progress Note: Renal follow up for SHANKAR on CKD Pt seen and examined at the bedside no acute complaints abd still with large amt of fluid no sob or chest pains s/p pleural drainage yesterday good urine output Vital Signs Temperature 98.6 F 01/25/17 14:40 Pulse Rate 86 01/25/17 14:40 Respiratory Rate 20 01/25/17 14:40 Blood Pressure 126/72 01/25/17 14:40 O2 Sat by Pulse Oximetry (%) 98 01/25/17 09:00 Gen: NAD, awake and alert CVS: RRR, No M/R Lungs: dec BS right lung base Abd: Tense Asciteies Ext: + 1 edema in LE CBC, BMP 01/25/17 05:31 01/25/17 05:31 Laboratory Tests 01/25/17 05:31 Calcium 7.9 L Albumin 2.2 L Current Medications Furosemide (Lasix -) 60 mg PO DAILY [facility] Last Admin: 01/25/17 09:33 Dose: 60 mg Gabapentin (Neurontin -) 100 mg PO BID [facility] Last Admin: 01/25/17 09:34 Dose: 100 mg Hydromorphone HCl (Dilaudid -) 2 mg PO Q6H PRN PRN Reason: PAIN Last Admin: 01/25/17 16:07 Dose: 2 mg Insulin Aspart (Novolog Vial Sliding Scale -) 1 vial SQ ACHS [facility] PRN Reason: Protocol Last Admin: 01/25/17 13:22 Dose: Not Given Insulin Detemir (Levemir Vial) 25 units SQ AM [facility] Last Admin: 01/25/17 06:38 Dose: 25 units Insulin Detemir (Levemir Vial) 25 units SQ HS [facility] Last Admin: 01/24/17 21:50 Dose: 25 units Lactulose (Cephulac (Oral Use)) 30 gm PO BID [facility] Last Admin: 01/25/17 09:33 Dose: 30 gm Methadone HCl (Dolophine -) 10 mg PO DAILY [facility] Last Admin: 01/25/17 09:34 Dose: 10 mg Metoprolol Tartrate (Lopressor -) 25 mg PO BID [facility] Last Admin: 01/14/17 00:35 Dose: 25 mg Pantoprazole Sodium (Protonix -) 40 mg PO DAILY [facility] Last Admin: 01/25/17 09:34 Dose: 40 mg Silver Sulfadiazine (Silvadene -) 1 applic TP DAILY [facility] Last Admin: 01/25/17 09:46 Dose: 1 appful Zolpidem Tartrate (Ambien -) 5 mg PO HS PRN Last Admin: 01/24/17 21:49 Dose: 5 mg A/P 56 year old woman with PMhx of Hepatitis C with ESLD, CKD (Cr 1.5-17), CAD, DM who presented with AMS and admitted for hepatic encehlopathy and noted to have BUN/Cr of 58/2.2. #Acute on Chronic Renal Insufficiency Renal function now stable around baseline on lasix and aldactone may need to increase lasix as LE edema worsens trend daily weights #Hepatic Encephlopathy/ESLD/Hep C/Ascities continue Lactulose if large volume paracentesis is planned consider Alumin to prevent intravascular hypovolmeia #Right Pleural effusion chest tube in place drainage as per pulmonary #Right sided rib fractures pain control Flako Dobson DO
[2017-01-25] MEDS: ZOLPIDEM TARTRATE 5 MG TABLET PO PRN (22:09)
[2017-01-26] MEDS: INSULIN SLIDING SCALE (NOVOLOG) 1 VIAL SQ SCH ×4 (06:42→21:25)
[2017-01-26] MEDS: HYDROmorphone HCL 2 MG TABLET PO PRN ×3 (06:43→21:17)
[2017-01-26] MEDS: INSULIN DETEMIR 100 UNITS/ML MDV SQ SCH ×2 (06:43→21:24)
[2017-01-26 07:24] LABS: BASOPHIL 0.6 % (0-2.0); EOSINOPHIL 2.4 % (0-4.5); MCH 33.3 pg (25.7-33.7); MCHC 34.3 g/dl (32.0-35.9); MEAN CELL VOLUME 97.2 fl (80-96); MEAN PLT VOLUME 9.1 fl (7.5-11.1); NEUTROPHILS 62.6 % (42.8-82.8); RDW 15.7 % (11.9-15.9); WHITE BLOOD COUNT 3.4 K/mm3 (4.0-10.0)
[2017-01-26 07:36] LABS: PLATELET COUNT 33 K/MM3 (134-434)
[2017-01-26 07:52] LABS: CALCIUM 7.9 mg/dL (8.5-10.1); MAGNESIUM 1.7 mg/dL (1.8-2.4)
[2017-01-26 07:53] LABS: CREATININE 1.6 mg/dL (0.7-1.3); PHOSPHOROUS 3.1 mg/dL (2.5-4.9)
--- NOTE | 2017-01-26 08:22 | DS ---
Physical Examination Vital Signs: Vital Signs Temperature 98.3 F 01/26/17 06:00 Pulse Rate 90 01/26/17 06:00 Respiratory Rate 18 01/26/17 06:00 Blood Pressure 138/84 01/26/17 06:00 O2 Sat by Pulse Oximetry (%) 93 L 01/25/17 21:00 Cardiovascular: Yes: Regular Rate and Rhythm Respiratory: Yes: Regular, Diminished Gastrointestinal: Yes: Normal Bowel Sounds, Soft, Distention (less) Labs: CBC, BMP 01/26/17 05:35 01/26/17 05:35 Discharge Summary Reason For Visit: ACUTE KIDNEY INJURY; OPIOD DEPENDENCE Current Active Problems Acute kidney injury superimposed on CKD (Acute) Cirrhosis of liver (Acute) Decubitus skin ulcer (Acute) Hyperglycemia (Acute) Opioid dependence on agonist therapy (Acute) Portal hypertension (Acute) Radiculopathy (Acute) Right inguinal hernia (Acute) Right lower quadrant abdominal pain (Acute) Type 2 diabetes mellitus with other diabetic neurological complication (Acute) Hospital Course: Problems (1) Right lower quadrant abdominal pain Assessment/Plan: ct scan to evaluate Code(s): R10.31 - RIGHT LOWER QUADRANT PAIN (2) Pleural effusion Assessment/Plan: s/p pleuirex drain not enough fluid for paracentesis Code(s): J90 - PLEURAL EFFUSION, NOT ELSEWHERE CLASSIFIED (3) Acute kidney injury superimposed on CKD Assessment/Plan: bun/cr will monitor Code(s): N17.9 - ACUTE KIDNEY FAILURE, UNSPECIFIED N18.9 - CHRONIC KIDNEY DISEASE, UNSPECIFIED (4) Cirrhosis of liver Assessment/Plan: rifaximin lactulose for elevated ammonia- now trending down Code(s): K74.60 - UNSPECIFIED CIRRHOSIS OF LIVER Qualifiers: Hepatic cirrhosis type: unspecified hepatic cirrhosis Ascites presence : with ascites Qualified Code(s): K74.60 - Unspecified cirrhosis of liver (5) Hyperglycemia Assessment/Plan: bgm noted insulin dose adjusted Code(s): R73.9 - HYPERGLYCEMIA, UNSPECIFIED (6) Type 2 diabetes mellitus with other diabetic neurological complication Assessment/Plan: bgm insulin neurontin Code(s): E11.49 - TYPE 2 DIABETES W OTH DIABETIC NEUROLOGICAL COMPLICATION (7) METHADONE MAINTENANCE Assessment/Plan: will maintain on10mg methadone for pain management while tapering off narcotics (8) DVT (deep venous thrombosis) Assessment/Plan: no AC sec to low platelets has IVC filter Code(s): I82.409 - ACUTE EMBOLISM AND THOMBOS UNSP DEEP VN UNSP LOWER EXTREMITY Qualifiers: DVT location: lower extremity Affected thrombotic vein of extremity: femoral Laterality: left Chronicity: acute Qualified Code(s): I82.412 - Acute embolism and thrombosis of left femoral vein (9) Decubitus skin ulcer Assessment/Plan: stage 2 sacrum appreciate wound care note Code(s): L89.90 - PRESSURE ULCER OF UNSPECIFIED SITE, UNSPECIFIED STAGE Qualifiers: Pressure ulcer location: sacral region Pressure ulcer stage: stage 2 Qualified Code(s): L89.152 - Pressure ulcer of sacral region, stage 2 (10) Thrombocytopenia Assessment/Plan: continue to monitor no signs of bleeding Code(s): D69.6 - THROMBOCYTOPENIA, UNSPECIFIED Condition: Improved - Instructions Disposition: ALF FACILITY - Home Medications Comprehensive Discharge Medication List: Ambulatory Orders Albuterol 2.5/Ipratropium 0.5 [Duoneb -] 1 amp NEB Q6H PRN #120 amp 10/25/16 Methadone [Dolophine -] 10 mg PO DAILY 11/05/16 Gabapentin [Neurontin -] 100 mg PO BID #60 capsule 01/07/17 Insulin (Levemir) [Levemir Vial] 15 units SQ HS ml 01/07/17 Insulin (Levemir) [Levemir Vial] 25 units SQ AM ml 01/07/17 Lactulose (Oral Use) [Cephulac -] 20 gm PO QID #2400 gr 01/07/17 Metoprolol Tartrate [Lopressor -] 25 mg PO BID #60 tablet 01/07/17 Pantoprazole Sodium [Protonix -] 40 mg PO DAILY #30 tablet.ec 01/07/17 Furosemide [Lasix -] 60 mg PO DAILY tablet 01/26/17 Hydromorphone [Dilaudid -] 2 mg PO Q6H PRN #0 tablet MDD 4 01/26/17 Zolpidem Tartrate [Ambien] 5 mg PO HS PRN #0 tablet MDD 1 01/26/17
[2017-01-26] MEDS: PANTOPRAZOLE 40 MG TABLET (FP) PO SCH (09:34)
[2017-01-26] MEDS: GABAPENTIN 100 MG CAPSULE (FP) PO SCH ×2 (09:34→21:25)
[2017-01-26] MEDS: FUROSEMIDE 40 MG TABLET (FP) PO SCH (09:34)
[2017-01-26] MEDS: METHADONE HCL 10 MG TABLET PO SCH (09:34)
[2017-01-26] MEDS: LACTULOSE 20 GM/30 ML UDC (FOR ORAL USE ONLY) PO SCH ×2 (09:35→21:22)
[2017-01-26] MEDS: COLLAGENASE CLOSTRIDIUM HIST. 30 GRAMS TUBE TP SCH ×2 (10:00→15:51)
--- NOTE | 2017-01-26 12:37 | PN ---
Progress Note (short form) - Note Progress Note: Renal follow up for SHANKAR on CKD Pt seen and examined at the bedside s/p paracentesis yesterday no sob or chest pain Vital Signs Temperature 98.8 F 01/26/17 10:00 Pulse Rate 82 01/26/17 10:00 Respiratory Rate 18 01/26/17 10:00 Blood Pressure 127/78 01/26/17 10:00 O2 Sat by Pulse Oximetry (%) 93 L 01/25/17 21:00 Gen: NAD, awake and alert CVS: RRR, No M/R Lungs: dec BS right lung base Abd: Tense Asciteies Ext: + 1 edema in LE CBC, BMP 01/26/17 05:35 01/26/17 05:35 Current Medications Collagenase (Santyl -) 1 applic TP DAILY [facility] Furosemide (Lasix -) 60 mg PO DAILY [facility] Last Admin: 01/26/17 09:34 Dose: 60 mg Gabapentin (Neurontin -) 100 mg PO BID [facility] Last Admin: 01/26/17 09:34 Dose: 100 mg Hydromorphone HCl (Dilaudid -) 2 mg PO Q6H PRN PRN Reason: PAIN Last Admin: 01/26/17 06:43 Dose: 2 mg Insulin Aspart (Novolog Vial Sliding Scale -) 1 vial SQ ACHS [facility] PRN Reason: Protocol Last Admin: 01/26/17 11:04 Dose: Not Given Insulin Detemir (Levemir Vial) 25 units SQ AM [facility] Last Admin: 01/26/17 06:43 Dose: 25 units Insulin Detemir (Levemir Vial) 25 units SQ HS [facility] Last Admin: 01/25/17 22:07 Dose: 25 units Lactulose (Cephulac (Oral Use)) 30 gm PO BID [facility] Last Admin: 01/26/17 09:35 Dose: 30 gm Methadone HCl (Dolophine -) 10 mg PO DAILY [facility] Last Admin: 01/26/17 09:34 Dose: 10 mg Metoprolol Tartrate (Lopressor -) 25 mg PO BID [facility] Last Admin: 01/14/17 00:35 Dose: 25 mg Pantoprazole Sodium (Protonix -) 40 mg PO DAILY [facility] Last Admin: 01/26/17 09:34 Dose: 40 mg Zolpidem Tartrate (Ambien -) 5 mg PO HS PRN Last Admin: 01/25/17 22:09 Dose: 5 mg A/P 56 year old woman with PMhx of Hepatitis C with ESLD, CKD (Cr 1.5-17), CAD, DM who presented with AMS and admitted for hepatic encehlopathy and noted to have BUN/Cr of 58/2.2. #Acute on Chronic Renal Insufficiency Renal function stable continue present diuretics Trend renal function as outpatient to follow up in the office #Hepatic Encephlopathy/ESLD/Hep C/Ascities continue Lactulose s/p paracentesis #Right Pleural effusion chest tube in place drainage as per pulmonary #Right sided rib fractures pain control Flako Dobson DO
--- NOTE | 2017-01-26 13:01 | PN ---
Progress Note (short form) - Note Progress Note: Overall breathing feels better. S/P paracentesis yesterday. Less SOB. No CP. Intake & Output 01/23/17 01/24/17 01/25/17 01/26/17 23:59 23:59 23:59 23:59 Intake Total 360 1050 2140 335 Output Total 1001 1000 Balance 520 04 9538 335 Weight 169 lb 12.8 oz 171 lb 6.4 oz 170 lb 9.6 oz 166 lb 9 oz Last Vital Signs Temp Pulse Resp BP Pulse Ox 98.8 F 82 18 127/78 93 L 01/26/17 10:00 01/26/17 10:00 01/26/17 10:00 01/26/17 10:00 01/25/17 21:00 Active Medications Collagenase (Santyl -) 1 applic TP DAILY [facility] Furosemide (Lasix -) 60 mg PO DAILY [facility] Last Admin: 01/26/17 09:34 Dose: 60 mg Gabapentin (Neurontin -) 100 mg PO BID [facility] Last Admin: 01/26/17 09:34 Dose: 100 mg Hydromorphone HCl (Dilaudid -) 2 mg PO Q6H PRN PRN Reason: PAIN Last Admin: 01/26/17 06:43 Dose: 2 mg Insulin Aspart (Novolog Vial Sliding Scale -) 1 vial SQ ACHS [facility] PRN Reason: Protocol Last Admin: 01/26/17 11:04 Dose: Not Given Insulin Detemir (Levemir Vial) 25 units SQ AM [facility] Last Admin: 01/26/17 06:43 Dose: 25 units Insulin Detemir (Levemir Vial) 25 units SQ HS [facility] Last Admin: 01/25/17 22:07 Dose: 25 units Lactulose (Cephulac (Oral Use)) 30 gm PO BID [facility] Last Admin: 01/26/17 09:35 Dose: 30 gm Methadone HCl (Dolophine -) 10 mg PO DAILY [facility] Last Admin: 01/26/17 09:34 Dose: 10 mg Metoprolol Tartrate (Lopressor -) 25 mg PO BID [facility] Last Admin: 01/14/17 00:35 Dose: 25 mg Pantoprazole Sodium (Protonix -) 40 mg PO DAILY [facility] Last Admin: 01/26/17 09:34 Dose: 40 mg Zolpidem Tartrate (Ambien -) 5 mg PO HS PRN Last Admin: 01/25/17 22:09 Dose: 5 mg Gen: NAD Heart: RRR Lung: decreased breath sounds right, (+) PleureX Abd: soft, distended, nontender, +ascites Ext: trace edema Laboratory Results - last 24 hr 01/25/17 01/25/17 01/26/17 16:53 22:02 05:35 WBC 3.4 L RBC 3.04 L Hgb 10.1 L Hct 29.6 L MCV 97.2 H MCHC 34.3 RDW 15.7 Plt Count 33 L* MPV 9.1 Neutrophils % 62.6 Lymphocytes % 16.7 D Monocytes % 17.7 H Eosinophils % 2.4 Basophils % 0.6 Sodium Potassium Chloride Carbon Dioxide Anion Gap BUN Creatinine POC Glucometer 194 229 Random Glucose Calcium Phosphorus Magnesium 01/26/17 01/26/17 01/26/17 05:35 06:42 10:44 WBC RBC Hgb Hct MCV MCHC RDW Plt Count MPV Neutrophils % Lymphocytes % Monocytes % Eosinophils % Basophils % Sodium 138 Potassium 3.6 Chloride 104 Carbon Dioxide 24 Anion Gap 10 BUN 42 H Creatinine 1.6 H POC Glucometer 143 145 Random Glucose 133 H D Calcium 7.9 L Phosphorus 3.1 Magnesium 1.7 L A/P Liver Cirrhosis Pleural Effusion/Hepatic Hydrothroax Ascites Acute on Chronic Renal Failure Thrombocytopenia CAD s/p PPM - drain pleur-x drain based on symptoms - diuresis as tolerated - ideally need to control ascites to prevent recurrence of pleural effusion Dr Abbott
[2017-01-26] MEDS: MAGNESIUM OXIDE 400 MG TABLET (FP) PO SCH ×2 (13:41→21:19)
[2017-01-26] MEDS ORDERED: INSULIN (NOVOLOG) ASPART 100 UNITS/ML 10ML VIAL ONE (21:13)
[2017-01-26] MEDS: ZOLPIDEM TARTRATE 5 MG TABLET PO PRN (21:26)
[2017-01-27] MEDS: INSULIN DETEMIR 100 UNITS/ML MDV SQ SCH (06:54)
[2017-01-27] MEDS: HYDROmorphone HCL 2 MG TABLET PO PRN (06:54)
[2017-01-27] MEDS: INSULIN SLIDING SCALE (NOVOLOG) 1 VIAL SQ SCH (06:55)
[2017-01-27 08:22] LABS: ALBUMIN 2.2 g/dl (3.4-5.0); BILIRUBIN,TOTAL 0.9 mg/dL (0.2-1.0); CREATININE 1.6 mg/dL (0.7-1.3); MAGNESIUM 1.7 mg/dL (1.8-2.4); TOT PROT 7.5 g/dl (6.4-8.2)
[2017-01-27] MEDS: MAGNESIUM OXIDE 400 MG TABLET (FP) PO SCH (08:32)
[2017-01-27] MEDS: LACTULOSE 20 GM/30 ML UDC (FOR ORAL USE ONLY) PO SCH (09:11)
[2017-01-27] MEDS: METHADONE HCL 10 MG TABLET PO SCH (09:12)
[2017-01-27] MEDS: FUROSEMIDE 40 MG TABLET (FP) PO SCH (09:13)
[2017-01-27] MEDS: GABAPENTIN 100 MG CAPSULE (FP) PO SCH (09:13)
[2017-01-27] MEDS: COLLAGENASE CLOSTRIDIUM HIST. 30 GRAMS TUBE TP SCH (09:14)
[2017-01-27] MEDS: PANTOPRAZOLE 40 MG TABLET (FP) PO SCH (09:14)
--- NOTE | 2017-01-27 10:02 | DS ---
Physical Examination Vital Signs: Vital Signs Temperature 98.2 F 01/27/17 09:31 Pulse Rate 80 01/27/17 09:31 Respiratory Rate 20 01/27/17 09:31 Blood Pressure 130/72 01/27/17 09:31 O2 Sat by Pulse Oximetry (%) 95 01/26/17 21:00 Neck: Yes: Supple Cardiovascular: Yes: Regular Rate and Rhythm Respiratory: Yes: Regular, Diminished Gastrointestinal: Yes: Normal Bowel Sounds, Soft, Ascites, Distention Edema: Yes Labs: CBC, BMP 01/26/17 05:35 01/27/17 06:30 Discharge Summary Reason For Visit: ACUTE KIDNEY INJURY; OPIOD DEPENDENCE Current Active Problems Acute kidney injury superimposed on CKD (Acute) Cirrhosis of liver (Acute) Decubitus skin ulcer (Acute) Hyperglycemia (Acute) Opioid dependence on agonist therapy (Acute) Portal hypertension (Acute) Radiculopathy (Acute) Right inguinal hernia (Acute) Right lower quadrant abdominal pain (Acute) Type 2 diabetes mellitus with other diabetic neurological complication (Acute) Hospital Course: 56 year old male with a significant PMH of HTN, CAD, DM, HDL, end stage liver disease due to Hep C, hx of encepalopathy, lymphoma, polysubstance abuse, hx of hydrothorax is brought to ED by ambulance. He doesn't have any complaints today but he has altered mental status. Ambulance was called by visiting nurse, pt lives alone. He was discharged from [facility] several days ago. - Past Medical History [employer]: Yes: Other (history of hepatic encephalopathy) Cardiovascular: Yes: CAD (reported prior MIs -> stents x4 at [facility] in 1998), HTN, Other (PPM palcement at time of NE in 1998, abnl EKG witth old inferior NE) Pulmonary: Yes: COPD, Other (PLEURAL EFFUSION WITH PREVIOUS thoracentesis and chest tube) Gastrointestinal: Yes: Ascites, Diverticulitis, Esophageal Varices (This patient does NOT have varices), GI Bleed (s/p multiple blood transfusions), Other (gastric varices ) Hepatobiliary: Yes: Cirrhosis (ESLD), Hepatitis C, Other (PORTAL HYPERTENSION) Renal/: Yes: Renal Inusuff (CKD (baseline 0.9-1.1)) Heme/Onc: Yes: Anemia, Thrombocytopenia Psych: Yes: Addictions (hx of polysubstance abuse & IVDA on maintenance Methadone), Anxiety Endocrine: Yes: Diabetes Mellitus (insulin-dependent) - Past Surgical History Past Surgical History: Yes: Permanent Pacemaker, Stent, Upper Endoscopy (with gastric varices/sclerotherapy) Problems (1) Right lower quadrant abdominal pain Assessment/Plan: INTERMITTENT HAS AN INGUINAL HERNIA--POOR SURGICAL CANDIDATE EVALUATED BY SURGRY ANS GI MONITOR FOR NOW Code(s): R10.31 - RIGHT LOWER QUADRANT PAIN (2) Pleural effusion Assessment/Plan: s/p pleuirex drain placement--daily draining with good effect--continue pulmonary eval and follow up --continue with treatment Code(s): J90 - PLEURAL EFFUSION, NOT ELSEWHERE CLASSIFIED (3) Acute kidney injury superimposed on CKD Assessment/Plan: bun/cr stable Laboratory Tests 01/25/17 01/26/17 01/27/17 05:31 05:35 06:30 BUN 44 H 42 H 41 H Creatinine 1.7 H 1.6 H 1.6 H Code(s): N17.9 - ACUTE KIDNEY FAILURE, UNSPECIFIED N18.9 - CHRONIC KIDNEY DISEASE, UNSPECIFIED (4) Cirrhosis of liver Assessment/Plan: rifaximin lactulose for elevated ammonia- mental status improving same rx Code(s): K74.60 - UNSPECIFIED CIRRHOSIS OF LIVER Qualifiers: Hepatic cirrhosis type: unspecified hepatic cirrhosis Ascites presence : with ascites Qualified Code(s): K74.60 - Unspecified cirrhosis of liver (5) Hyperglycemia Assessment/Plan: bgm noted insulin dose adjusted Code(s): R73.9 - HYPERGLYCEMIA, UNSPECIFIED (6) Type 2 diabetes mellitus with other diabetic neurological complication Assessment/Plan: bgm insulin neurontin helping with pain Code(s): E11.49 - TYPE 2 DIABETES W OTH DIABETIC NEUROLOGICAL COMPLICATION (7) METHADONE MAINTENANCE Assessment/Plan: will maintain on10mg methadone for additional pain management while tapering off narcotics (8) DVT (deep venous thrombosis) Assessment/Plan: no AC sec to low platelets has IVC filter Code(s): I82.409 - ACUTE EMBOLISM AND THOMBOS UNSP DEEP VN UNSP LOWER EXTREMITY Qualifiers: DVT location: lower extremity Affected thrombotic vein of extremity: femoral Laterality: left Chronicity: acute Qualified Code(s): I82.412 - Acute embolism and thrombosis of left femoral vein (9) Decubitus skin ulcer Assessment/Plan: stage 2 sacrum appreciate wound care note on rx with collagenese Code(s): L89.90 - PRESSURE ULCER OF UNSPECIFIED SITE, UNSPECIFIED STAGE Qualifiers: Pressure ulcer location: sacral region Pressure ulcer stage: stage 2 Qualified Code(s): L89.152 - Pressure ulcer of sacral region, stage 2 (10) Thrombocytopenia Assessment/Plan: continue to monitor no signs of bleeding no plat transfusion at this time hem/onc on board Code(s): D69.6 - THROMBOCYTOPENIA, UNSPECIFIED Condition: Improved - Instructions Disposition: LONG TERM FACILITY - Home Medications Comprehensive Discharge Medication List: Ambulatory Orders Albuterol 2.5/Ipratropium 0.5 [Duoneb -] 1 amp NEB Q6H PRN #120 amp 10/25/16 Methadone [Dolophine -] 10 mg PO DAILY 11/05/16 Gabapentin [Neurontin -] 100 mg PO BID #60 capsule 01/07/17 Insulin (Levemir) [Levemir Vial] 15 units SQ HS ml 01/07/17 Insulin (Levemir) [Levemir Vial] 25 units SQ AM ml 01/07/17 Lactulose (Oral Use) [Cephulac -] 20 gm PO QID #2400 gr 01/07/17 Metoprolol Tartrate [Lopressor -] 25 mg PO BID #60 tablet 01/07/17 Pantoprazole Sodium [Protonix -] 40 mg PO DAILY #30 tablet.ec 01/07/17 Furosemide [Lasix -] 60 mg PO DAILY tablet 01/26/17 Hydromorphone [Dilaudid -] 2 mg PO Q6H PRN #0 tablet MDD 4 01/26/17 Zolpidem Tartrate [Ambien] 5 mg PO HS PRN #0 tablet MDD 1 01/26/17
[2017-01-27 12:00] VITALS: BP 137/81; PULSE 82; TEMP 97.9
== END 2017-01-27 11:17 | DRG 441 ==
LOC: JER 13:32 → JERBED 16:20 → J5S 19:35 → OBSVTOIN 20:09 → J5S 01-23 12:56
PROVIDERS: ADMIT Family Medicine; ATTEND Family Medicine
PROC: 0W9930Z Drainage of Right Pleural Cavity with Drainage Device, Percutaneous Approach (ICD-10-PCS; principal; 2017-01-17)
DX: K72.90 Hepatic failure, unspecified without coma (principal); L89.303 Pressure ulcer of unspecified buttock, stage 3; N17.9 Acute kidney failure, unspecified; J90 Pleural effusion, not elsewhere classified; K76.6 Portal hypertension; C85.10 Unspecified B-cell lymphoma, unspecified site; F11.20 Opioid dependence, uncomplicated; R64 Cachexia; R18.8 Other ascites; I85.00 Esophageal varices without bleeding; B19.20 Unspecified viral hepatitis C without hepatic coma; Z79.4 Long term (current) use of insulin; E11.22 Type 2 diabetes mellitus with diabetic chronic kidney disease; I12.9 Hypertensive chronic kidney disease with stage 1 through stage 4 chronic kidney disease, or unspecified chronic kidney disease; N18.9 Chronic kidney disease, unspecified; K74.60 Unspecified cirrhosis of liver; E11.65 Type 2 diabetes mellitus with hyperglycemia; Z86.718 Personal history of other venous thrombosis and embolism; J44.9 Chronic obstructive pulmonary disease, unspecified; I25.2 Old myocardial infarction; Z95.0 Presence of cardiac pacemaker; D69.6 Thrombocytopenia, unspecified; D64.9 Anemia, unspecified; E83.39 Other disorders of phosphorus metabolism; E86.1 Hypovolemia; E87.5 Hyperkalemia; I25.10 Atherosclerotic heart disease of native coronary artery without angina pectoris; E83.42 Hypomagnesemia; F41.9 Anxiety disorder, unspecified; L89.152 Pressure ulcer of sacral region, stage 2; F17.210 Nicotine dependence, cigarettes, uncomplicated
CPT/HCPCS: 36415; 36600; 71010-TC; 71020-TC; 71101-TC-RT; 71250-TC; 74176-TC; 76705-TC; 80048; 80053; 80307; 81003; 81015; 82140; 82375; 82550; 82553; 82570; 82803; 82947; 83050; 83605; 83735; 84100; 84156; 84300; 84484; 84540; 85025; 85610; 93005; 93010; 94640; 99283-25; G0378; J3480; Q9967